=== PATIENT | female | born 1945 | race Caucasian/White ===

== ENCOUNTER 2022-08-20 14:12 | Outpatient (CLI) | payer MEDICARE, SELFPAY ==
--- OUTSIDE RECORDS SUMMARY | 2022-08-20 14:21 | XMS_ITS | Encounter Summary ---
:1945 Author Organization [place] Address [facility] [place] [address] Care Team Providers Name Role Phone Jordin Allred Amari JORDAN Unavailable Chan Duke MD Primary Care Provider Chan Duke MD Unavailable Yris Perez MD Unavailable [phone] Encounter Details Date Type Department Care Team Description 08/14/2022 Travel Social History Tobacco Use Types Packs/Day Years Used Date Passive Smoke Exposure - Never Smoker Smokeless Tobacco: Never Used Alcohol Use Standard Drinks/Week Comments No 0 (1 standard drink = 0.6 oz pure alcoho l) Sex Assigned at Date Recorded Female 01/27/2022 12:36 PM CDT COVID-19 Exposure Response Date Recorded In the last 10 days, have you been in contact with No / Unsu re 08/14/2022 1:36 PM CDT someone who was confirmed or suspected to have Coronavirus/COVID-19? 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, 01/08/2017 9 06/08/17, 08/26/17 documented as of this encounter Care Teams Harness Worker Relationship Specialty Start Date End Date Chan Duke MD PCP - General Internal Medicine 08/21/21 [address] [place] [address] Jordin Allred, Assigned Musculoskeletal 03/02/21 DPM Provider [address] [facility] [address] [place] [address] Chan Duke MD Assigned PCP 08/24/21 [address] [place] [address] Yris Perez Assigned Cancer Care 05/16/22 MD Ingrid Provider 420 [facility] [address] [place], [place] [id number] documented as of this encounter
--- OUTSIDE RECORDS SUMMARY | 2022-08-20 14:21 | XMS_ITS | Encounter Summary ---
:1945 Author Organization [place] Address [facility] [place] [address] Care Team Providers Name Role Phone Jordin Allred Amari DPJanelle Unavailable Chan Duke MD Primary Care Provider Chan Duke MD Unavailable Yris Perez MD Unavailable [phone] Reason for Visit Reason Comments Lab Only Encounter Details Date Type Department Care Team Description 06/15/2022 Oncology Visit [facility] Katalina Perez [place] [address] [place] [address] 420 [facility] [address] [address] [place] [address] [phone] Social History Tobacco Use Types Packs/Day Years [...] in contact with No / Unsu re 06/15/2022 10:54 AM CDT someone who was confirmed or suspected to have Coronavirus/COVID-19? documented as of this encounter Progress Notes Suzan Alston, HERBIE - 06/15/2022 10:45 AM CDT Urine collected from patient for lab only visit. 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, 01/08/2017 9 06/08/17, 08/26/17 documented as of this encounter Care Teams Bakery And Deli Sales Manager Relationship Specialty Start Date End Date Chan Duke MD PCP - General Internal Medicine 08/21/[address] [place] [address] [facility] [place] [address] Jordin Allred, Assigned Musculoskeletal 03/02/21 DPM Provider [address] [facility] [address] [place], [place] [address] Chan Duke MD Assigned PCP 08/24/[address] [place] [address] [place] [address] Yris Perez Assigned Cancer Care 05/16/22 MD Ingrid Provider [address] [phone] documented as of this encounter
--- OUTSIDE RECORDS SUMMARY | 2022-08-20 14:21 | XMS_ITS | Encounter Summary ---
:1945 Author Organization [place] Address [facility]0 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 documented as of this encounter Last Filed Vital Signs Vital Sign Reading Time Taken Comments Blood Pressure 129/74 08/14/2022 2:02 PM CDT Pulse 86 08/14/2022 2:02 PM CDT Temperature 36.8 ??C (98.3 ??F) 08/14/2022 2:02 PM CDT Respiratory Rate - - Oxygen Saturation 96% 08/14/2022 2:02 PM CDT Inhaled Oxygen Concentration - - Weight 66.2 kg (146 lb) 08/14/2022 2:02 PM CDT Height 167.6 cm (5' 6) 08/14/2022 2:02 PM CDT Body Mass Index 23.57 08/14/2022 2:02 PM CDT documented in this encounter Patient Instructions Patient InstructionsGuillermo Rojas APRN CNP - 08/14/2022 2:00 PM CDT Macrobid 5 days twice a day Lots of fluid/water I will contact with culture results documented in this encounter Progress Notes Guillermo Rojas APRN CNP - 08/14/2022 2:00 PM CDT Assessment & Plan Acute cystitis without hematuria (primary encounter diagnosis) Comment: patient positive for UTI. Patient concerned about use of Macrobid d/t sister having side effects from halfway use. Patient educated on risks and benefits of Macrobid, patient eventually agreed to prescription. Patient GFR >60, appropriate use verified. Encouraged patient to increase fluid intake. Patient educated on signs and symptoms of progressing UTI and when to present to urgent care/ER or contact the clinic if needed. Plan: nitroFURantoin macrocrystal-monohydrate (MACROBID) 100 MG capsule Urinary tract infection without hematuria, site unspecified Comment: see above. Will reach out to patient about culture results once received. Plan: UA Macro with Reflex to Micro and Culture - lab collect, Urine Microscopic Exam, Urine Culture See above for treatment 40 minutes spent on the date of the encounter doing chart review, history and exam, documentation and further activities per the note Follow up as needed. No follow-ups on file. Guillermo Rojas APRN CNP [facility] [place] is a 76 yo female presenting with concern for UTI. Patient has pertinent history of recurrenturinary tract infections, chronic obstructive pulmonary disease, hypertension, and breast cancer. Patient symptoms occurred 1-3 days ago. Discomfort upon urination, urinary frequency, lower abdominal discomfort, and myalgias last night. Patient abdominal pain dull in nature but not severe. She cannot explain her discomfort with urination and just describes it as a strange sensation. Patient currently on cranberry supplement and has tried increasing fluid. Patient feels that her symptoms are worsening. Has not taken any medications for relief of pain. Denies fevers, night sweats, flank pain, or hematuria. History of Present Illness Reason for visit: Suspect uti Symptom onset: 1-3 days ago She eats 4 or more servings of fruits and vegetables daily.She consumes 1 sweetened beverage(s) daily.She exercises with enough effort to increase her heart rate 9 or less minutes per day. She exercises with enough effort to increase her heart rate 4 days per week. She is missing 1 dose(s) of medications per week. Genitourinary - Female Onset/Duration: 1-3 days ago Description: Painful urination (Dysuria): No, discomfort Frequency: YES, 5 times last night Blood in urine (Hematuria): No Delay in urine (Hesitency): No Intensity: moderate, hard to void without the strange sensation Progression of Symptoms: worsening Accompanying Signs & Symptoms: Fever/chills: YES, last night Flank pain: No Nausea and vomiting: No Vaginal symptoms: none Abdominal/Pelvic Pain: No History: History of frequent UTI???s: YES History of kidney stones: No Sexually Active: No Possibility of : No Precipitating or alleviating factors: None Therapies tried and outcome: Cranberry juice prn (contraindicated in Coumadin patients) and OTC Aleve Patient said she saw urology in the past, and is experiencing the same symptoms she had Review of Systems Constitutional, HEENT, cardiovascular, pulmonary, gi and gu systems are negative, except as otherwise noted. Objective BP 129/74 (BP Location: Right arm, Patient Position: Sitting, Cuff Size: Adult Regular) Pulse 86 Temp 98.3 ??F (36.8 ??C) (Oral) Ht 1.676 m (5' 6) Wt 66.2 kg (146 lb) SpO2 96% BMI 23.57 kg/m?? Body mass index is 23.57 kg/m??. Physical Exam Vitals and nursing note reviewed. Constitutional: General: She is not in acute distress. Appearance: Normal appearance. She is well-developed. She is not ill-appearing, toxic-appearing or diaphoretic. Cardiovascular: Rate and Rhythm: Normal rate and regular rhythm. Pulses: Normal pulses. Heart sounds: Normal heart sounds, S1 normal and S2 normal. No murmur heard. No friction rub. No gallop. No S3 or S4 sounds. Pulmonary: Effort: Pulmonary effort is normal. No respiratory distress. Breath sounds: Normal breath sounds. No stridor. No wheezing, rhonchi or rales. Chest: Chest wall: No tenderness. Abdominal: General: Bowel sounds are normal. There is no distension. Palpations: Abdomen is soft. There is no mass. Tenderness: There is abdominal tenderness. There is no right CVA tenderness, left CVA tenderness, guarding or rebound. Skin: General: Skin is warm and dry. Neurological: General: No focal deficit present. Mental Status: She is alert and oriented to person, place, and time. Motor: No abnormal muscle tone. Deep Tendon Reflexes: Reflexes are normal and symmetric. Psychiatric: Mood and Affect: Mood normal. Behavior: Behavior normal. Thought Content: Thought content normal. Judgment: Judgment normal. 08/14/22 Urinalysis Results for orders placed or performed in visit on 08/14/22 UA Macro with Reflex to Micro and Culture - lab collect Status: Abnormal Specimen: Urine, Midstream Result Value Ref Range Color Urine Yellow Colorless, Straw, Light Yellow, Yellow Appearance Urine Clear Clear Glucose Urine Negative Negative mg/dL Bilirubin Urine Negative Negative Ketones Urine Negative Negative mg/dL Specific [place] Urine 1.015 1.003 - 1.035 Blood Urine Trace (A) Negative pH Urine 7.0 5.0 - 7.0 Protein Albumin Urine Negative Negative mg/dL Urobilinogen Urine 1.0 0.2, 1.0 E.U./dL Nitrite Urine Positive (A) Negative Leukocyte Esterase Urine Large (A) Negative Urine Microscopic Exam Status: Abnormal Result Value Ref Range Bacteria Urine Many (A) None Seen /HPF RBC Urine 0-2 0-2 /HPF /HPF WBC Urine 50-100 (A) 0-5 /HPF /HPF Squamous Epithelials Urine Few (A) None Seen /LPF Urinary Culture: results pending documented in this encounter Plan of Treatment Upcoming Encounters Date Type Specialty Care Team Description 10/26/2022 Lab Oncology Yris Perez MD [address] [id number] (Wo rk) 11/03/2022 Oncology Visit Oncology Yris Perez MD [address] [address] (Wo rk) documented as of this encounter Procedures Procedure Name Priority Date/Time Associated Diagnosis Comme nts UA MACROSCOPIC WITH Routine 08/14/2022 2:00 PM Urinary tract R esults for this REFLEX TO MICRO AND CDT infection with proced ure are in CULTURE hematuria, site the results unspecified section. URINE MICROSCOPIC Routine 08/14/2022 2:00 PM Urinary tract Res ults for this EXAM CDT infection with procedure are in hematuria, site the results unspecified section. URINE CULTURE Routine 08/14/2022 2:00 PM Urinary tract Results for this CDT infection with procedure are in hematuria, site the results unspecified section. documented in this encounter Results (ABNORMAL) Urine Culture (08/14/2022 2:00 PM CDT) [facility] Method Time Signature Culture >100,000 CFU/mL VERONIKA 08/15/2022 UU IDD Escherichia 11:01 PM CDT LABORATORY coli (A) Specimen Anatomical Collection Method Collection Time Receive d Time (Source) Location / / Volume Laterality Urine MID-STREAM URINE Non-blood 08/14/2022 2:00 PM 08/14 2:03 SPECIMEN / Unknown Collection / CDT PM CDT Unknown Organism Antibiotic Method Susceptibility Escherichia coli Ampicillin VERONIKA 4 ug/mL: Suscep tible Escherichia coli Ampicillin/ Sulbactam VERONIKA <=2 ug/mL : Susceptible Escherichia coli Piperacillin/Tazobactam VERONIKA <=4 ug/ mL: Susceptible Escherichia coli Cefazolin VERONIKA <=4 ug/mL: Susc eptible Comment: Cefazolin VERONIKA break points are for the treatment of uncomplicated urinary tract infections. For the tr eatment of systemic infections, please contact the laboratory for additional te sting. Escherichia coli Cefoxitin VERONIKA 8 ug/mL: Suscep tible Escherichia coli Ceftazidime VERONIKA <=1 ug/mL: Susc eptible Escherichia coli Ceftriaxone VERONIKA <=1 ug/mL: Susc eptible Escherichia coli Cefepime VERONIKA <=1 ug/mL: Susc eptible Escherichia coli Gentamicin VERONIKA <=1 ug/mL: Susc eptible Escherichia coli Tobramycin VERONIKA <=1 ug/mL: Susc eptible Escherichia coli Ciprofloxacin VERONIKA >=4 ug/mL: Resi stant Escherichia coli Levofloxacin VERONIKA >=8 ug/mL: Resi stant Escherichia coli Nitrofurantoin VERONIKA <=16 ug/mL: Jennifer ceptible Escherichia coli Trimethoprim/Sulfamethoxazole VERONIKA < =1/19 ug/mL: Susceptible Guillermo Rojas APRN, CNP LAB - MICRO GENERAL ORDERABL ES Performing Organization Address City/State/ZIP Code Phon e Number UU IDD LABORATORY [facility] [place] [address] [facility], Room [address]297 (ABNORMAL) Urine Microscopic Exam (08/14/2022 2:00 PM CDT) [facility] Method Time Signature Bacteria Urine Many (A) None Seen VERONIKA 08/14/2022 CR LABORATORY /HPF 2:07 PM CDT RBC Urine 0-2 0-2 /HPF VERONIKA 08/14/2022 CR LABORATORY /HPF 2:07 PM CDT WBC Urine 50-100 0-5 /HPF VERONIKA 08/14/2022 CR LABORATORY (A) /HPF 2:07 PM CDT Squamous Few (A) None Seen VERONIKA 08/14/2022 CR LABORATORY Epithelials /LPF 2:07 PM CDT Urine Specimen Anatomical Collection Method Collection Time Receive d Time (Source) Location / / Volume Laterality Urine MID-STREAM URINE Non-blood 08/14/2022 2:00 PM 08/14 2:00 SPECIMEN / Unknown Collection / CDT PM CDT Unknown Guillermo Rojas APRN, CNP LAB - URINE ORDERABLES Performing Organization Address City/[facility]/ZIP [facility] Phon e Number CR LABORATORY [facility] [place] [address] [facility] [address] [place] [address] Lab (no room number, 1st floor of clinic) CR LABORATORY [facility] [place], [place] [phone] [facility] [phone] Lab [address] [facility] Lab (no room number, 1st floor of [facility]) (ABNORMAL) UA Macro with Reflex to Micro and Culture - lab collect (08/14/2022 2:00 PM CDT) [facility] Method Time Signature Color Urine Yellow Colorless, 08/14/2022 CR LABORATORY Straw, 2:03 PM CDT Light Yellow, Yellow Appearance Urine Clear Clear 08/14/2022 CR LABORATOR Y 2:03 PM CDT Glucose Urine Negative Negative 08/14/2022 CR LABORATORY mg/dL 2:03 PM CDT Bilirubin Urine Negative Negative 08/14/2022 CR LABORATORY 2:03 PM CDT Ketones Urine Negative Negative 08/14/2022 CR LABORATORY mg/dL 2:03 PM CDT Specific [place] 1.015 1.003 - 08/14/2022 CR LABORATOR Y Urine 1.035 2:03 PM CDT Blood Urine Trace (A) Negative 08/14/2022 CR LABORATORY 2:03 PM CDT pH Urine 7.0 5.0 - 7.0 08/14/2022 CR LABORATORY 2:03 PM CDT Protein Albumin Negative Negative 08/14/2022 CR LABORATORY Urine mg/dL 2:03 PM CDT Urobilinogen 1.0 0.2, 1.0 08/14/2022 CR LABORATORY Urine E.U./dL 2:03 PM CDT Nitrite Urine Positive Negative 08/14/2022 CR LABORATORY (A) 2:03 PM CDT Leukocyte Large (A) Negative 08/14/2022 CR LABORATORY Esterase Urine 2:03 PM CDT Specimen Anatomical Collection Method Collection Time Receive d Time (Source) Location / / Volume Laterality Urine MID-STREAM URINE Non-blood 08/14/2022 2:00 PM 08/14 2:00 SPECIMEN / Unknown Collection / CDT PM CDT Unknown Guillermo Rojas APRN RECORDS OFFICER LAB - URINE ORDERABLES Performing Organization Address City/State/ZIP Code Phon e [place] [address] [facility] [address] [facility] Lab (no room number, 1st floor of clinic) CR LABORATORY [place], [place] [phone] [facility] [address], [facility] Lab [address] [facility] Lab (no room number, 1st floor of clinic) documented in this encounter Visit Diagnoses Diagnosis Acute cystitis without hematuria - Prima ry Acute cystitis Urinary tract infection with hematuria, site unspecified documented in this encounter Additional Health Concerns Infection Onset Date Last Indicated Resolved Time 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, 01/08/2017 9 06/08/17, 08/26/17 documented as of this encounter Care Teams Fuel Testing Technician Relationship Specialty Start Date End Date Chan Duke MD PCP - General Internal Medicine 08/21/21 [address] [place], [place] [phone] Jordin Allred, Assigned Musculoskeletal 03/02/21 DPM Provider [address] [place], [place] [address] Chan Duke MD Assigned PCP 08/24/21 [address] [place], [place] [address] Yris Perez Assigned Cancer Care 05/16/22 MD Ingrid Provider 420 [facility] [address] [place], [place] [address] documented as of this encounter
--- OUTSIDE RECORDS SUMMARY | 2022-08-20 14:21 | XMS_ITS | Encounter Summary ---
:1945 Author Organization [place] Address [facility] [place] [address] Care Team Providers Name Role Phone Jordin Allred Amari JORDAN Unavailable Chan Duke MD Primary Care Provider Chan Duke MD Unavailable Yris Perez MD Unavailable [phone] Encounter Details Date Type Department Care Team Description 07/09/2022 Travel Social History Tobacco Use Types Packs/Day [...] in contact with No / Unsu re 07/09/2022 9:17 AM CDT someone who was confirmed or suspected to have Coronavirus/COVID-19? documented as of this encounter Plan of Treatment Upcoming Encounters Date Type Specialty Care Team Description 10/26/2022 Lab Oncology Yris Perez MD [address] [address] (Madeleine proctor) 11/03/2022 Oncology Visit Oncology Yris Perez MD [address] [address] (Madeleine proctor) documented as of this encounter Visit Diagnoses Not on filedocumented in this encounter Additional Health Concerns Infection Onset Date Last Indicated Resolved Time 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, 01/08/2017 9 06/08/17, 08/26/17 documented as of this encounter Care Teams Cake Press Operator Relationship Specialty Start Date End Date Chan Duke MD PCP - General Internal Medicine 08/21/21 [address] [place] [phone] Jordin Allred, Assigned Musculoskeletal 03/02/21 DPM Provider [address] [facility] [address] [place] [address] Chan Duke MD Assigned PCP 08/24/21 [address] [place] [address] Yris Perez Assigned Cancer Care 05/16/22 MD Ingrid Provider 420 [facility] 286 [place], [place] [phone] documented as of this encounter
--- OUTSIDE RECORDS SUMMARY | 2022-08-20 14:21 | XMS_ITS | Encounter Summary ---
:1945 Author Organization [place] Address [address] 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 documented as of this encounter Plan of Treatment Upcoming Encounters Date Type Specialty Care Team Description 10/26/2022 Lab Oncology Yris Perez MD [address] [address] (Wo rk) 11/03/2022 Oncology Visit Oncology Yris Perez MD [address] [address] (Wo rk) Scheduled Orders Name Type Priority Associated Diagnoses Order S chedule Cancer Antigen 15-3 Lab Routine Malignant neoplasm of Expected: 08/04/2022 upper-inner quadrant of (Aliza roximate), right breast in female, Expi res: 06/03/2023 estrogen receptor positive (H) UA with Microscopic Lab Routine Dysuria Expected : 06/09/2022 reflex to Culture - lab (Aliza roximate), collect Expires: 2022 documented as of this encounter Visit Diagnoses Diagnosis 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, estrogen receptor positive (H) - Primary Dysuria documented in this encounter Additional Health Concerns Infection Onset Date Last Indicated Resolved Time 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, 01/08/2017 9 06/08/17, 08/26/17 documented as of this encounter Care Teams Rock Crusher Operator Relationship Specialty Start Date End Date Chan Duke MD PCP - General Internal Medicine 08/21/21 [address] [place], [place] [address] Jordin Allred, Assigned Musculoskeletal 03/02/21 DPM Provider [address] [facility] [address] [place], [place] [address] Chan Duke MD Assigned PCP 08/24/21 [address] [place] [address] Yris Perez Assigned Cancer Care 05/16/22 MD Ingrid Provider [address] [address] documented as of this encounter
--- OUTSIDE RECORDS SUMMARY | 2022-08-20 14:21 | XMS_ITS | Encounter Summary ---
:1945 Author Organization [place] Address [facility] [place] [address] Care Team Providers Name Role Phone Jordin Allred Amari JORDAN Unavailable Chan Duke MD Primary Care Provider Chan Duke MD Unavailable Yris Perez MD Unavailable [phone] Encounter Details Date Type Department Care Team Description 05/21/2022 Travel Social History Tobacco Use Types Packs/Day [...] 10/26/2022 Lab Oncology Yris Perez MD [address] [address] (Madeleine proctor) 11/03/2022 Oncology Visit Oncology Yris Perez MD 420 [facility] [address] [place] [address] (Madeleine proctor) documented as of this encounter Visit Diagnoses Not on filedocumented in this encounter Additional Health Concerns Infection Onset Date Last Indicated Resolved Time 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, 01/08/2017 9 06/08/17, 08/26/17 documented as of this encounter Care Teams Agricultural Specialist Relationship Specialty Start Date End Date Chan Duke MD PCP - General Internal Medicine 08/21/21 [address] [place] [address] Jordin Allred, Assigned Musculoskeletal 03/02/21 DPM Provider [address] [facility] [address] [place] [address] Chan Duke MD Assigned PCP 08/24/21 [address] [place] [address] Yris Perez Assigned Cancer Care 05/16/22 MD Ingrid Provider 420 [facility] 286 [place], [place] [phone] documented as of this encounter
--- OUTSIDE RECORDS SUMMARY | 2022-08-20 14:21 | XMS_ITS | Encounter Summary ---
:1945 Author Organization [place] Address [facility] [place] [address] Care Team Providers Name Role Phone Chalino, Jordin Fitzpatrick DPM Unavailable Chan Duke MD Primary Care Provider Chan Duke MD Unavailable Yris Perez MD Unavailable [phone] Reason for Visit Reason Comments Ingrown Toenail Encounter Details Date Type Department Care Team Description 07/09/2022 Office Visit [facility] Jordin Chapin Ing rowing right great toenail, medial edge (Primary Dx); [facility] Great toe pain, right Podiatry [address] [place] [address] [phone] (Wo rk) Social History Tobacco Use Types Packs/Day Years Used Date Passive Smoke Exposure - Never Smoker Smokeless Tobacco: Never Used Tobacco Cessation: Counseling Given: Yes Alcohol Use Standard Drinks/Week Comments No 0 [...] Sign Reading Time Taken Comments Blood Pressure 122/72 07/09/2022 9:30 AM CDT Pulse - - Temperature - - Respiratory Rate - - Oxygen Saturation - - Inhaled Oxygen Concentration - - Weight 67.1 kg (148 lb) 07/09/2022 9:30 AM CDT Height 167.6 cm (5' 6) 07/09/2022 9:30 AM CDT Body Mass Index 23.89 07/09/2022 9:30 AM CDT documented in this encounter Patient Instructions Patient InstructionsGordo Dickey - 07/09/2022 9:30 AM CDT Thank you for choosing [facility] Podiatry / Foot & Ankle Surgery! [facility] LOCATIONS: [facility] TRIAGE LINE: [phone] APPOINTMENTS: [phone] [place] [address] RADIOLOGY: [phone] SET UP SURGERY: [phone] BILLING QUESTIONS: [phone] [facility] FAX: [id number] [place] [address] POST-PERMANENT NAIL REMOVAL 1. Btyk-zxh-guefdmo pain medication (tylenol / ibuprofen), elevating your foot, and ice application to the top of the foot is all that you will need for pain control. 2. Some bleeding is normal. If bleeding seems excessive to you, place ice on top of your foot for 15-20 minutes and elevate your foot above heart level. 3. Keep bandage on until this evening or tomorrow morning. If the bandage falls off or if it feels too tight , start the soaking process below. 4. Soaking instructions: a. Soak your foot twice a day for 15 minutes in a mild solution of warm water and soap for a minimum of 2-4 weeks. If your toe is still draining at 4 weeks, continue with soaking. b. It???s okay to soak your foot for a few minutes to loosen the bandage applied at your appointment. c. After soaking, use a Q-tip to clean under and around the skin where the nail was removed. This helps get rid of the brownish material and helps the wound drain. d. Blot your toe dry and apply a band-aid. 5. It is normal to experience some discomfort and redness around the nail for 1- 2 weeks following the procedure. Drainage will likely appear brownish and thick at times. This is normal. It might drain for up to 2 months. 7. Initial discomfort might last 2-3 days. You may resume with regular activities at that time, as long as you keep the wound clean and follow the soaking instructions. It is recommended that you do not enter a public swimming pool or hot tub while your toe is draining. 8. After 2-3 days, if you are experiencing worsening pain and redness, or notice pus, please contactthe clinic. Ask to speak with a triage nurse and they will inform our team of your symptoms and we can advise if a follow up is needed. documented in this encounter Progress Notes Jordin Chapin DPM - 07/09/2022 9:30 AM CDT ASSESSMENT: Encounter Diagnoses Name Primary? Ingrowing right great toenail, medial edge Yes ??? Great toe pain, right MEDICAL DECISION MAKING: Clinical findings are consistent with nail regrowth after an attempted partial chemical matrixectomy. Consistent with a ingrown toenail, this nail edge is causing pain. Darshana is interested in having this removed. I discussed the revision chemical matrixectomy procedure. Explained that there is approximately a 5%chance of nail regrowth. She also reports some intermittent pain involving the distal medial nail unit of the left hallux. She has noted this nail curls more. We discussed a possible partial nail removal procedure today. Ultimately she decided to wait and watch. There are no clinical signs of infection involving either toe today. Chemical Matrixectomy/ Permanent nail removal: The chemical matrixectomy procedure was reviewed, including risks, benefits, and post-procedure cares. The risk of discomfort and infection was discussed. The chance of nail regrowth was discussed. Verbal and written consent was obtained. The site was marked and the Time Out called. The base of the right hallux was injected with 3 cc of 2% Lidocaine plain. The toe was then prepped with betadine solution. A tourniquet was applied around the base of the toe to for hemostasis. Next the toe was checked for adequate anesthesia. The medial nail section was freed from the nail bed and marginal soft tissue attachments with a small spatula. The nail was firmly grasped with a hemostat andremoved in total. The area was explored with a blunt instrument. No additional nail found. The region of the germinal matrix was curettaged. Using small applicator sticks, three applications for 30 seconds, of Phenol tothe nail matrix were performed. The area was diluted with a copious amount of isopropyl alcohol. It was blotted dry. Next Silvadene ointment was applied to the nail bed, followed by a compressive dressing. The tourniquet was removed. The distal toe became immediately pink. The involved foot was kept elevated for several minutes. Patient tolerated the procedure well. Post-procedure instruction handout provided. Jordin Chapin DPM, VERNA, MS [facility] of Pod[facility] & [facility]le Surgery Disclaimer: This note consists of symbols derived from keyboarding, dictation and/or voice recognition software. As a result, there may be errors in the script that have gone undetected. Please consider this when interpreting information found in this chart. Jordin Chapin DPM, VERNA, MS [facility] of Podiatry/Foot & Ankle Surgery HPI: Darshana presents today reporting some nail regrowth involving her right hallux. In February 2021 she hada partial chemical matrixectomy of the medial edge. Some nail has regrown. This causes some discomfort including throbbing, tingling and shooting pain. She also reports that there have been times that she was concerned about infection, due to redness. * Past Medical History: Diagnosis Date ??? Acute idiopathic gout of left foot ??? Benign essential hypertension ??? Cancer (H) breast ??? Chronic infection multiple UTIs ??? COPD (chronic obstructive pulmonary disease) (H) ??? Migraines * * Past Surgical History: Procedure Laterality Date ??? ARTHROPLASTY HIP ANTERIOR Right 03/10/2016 Procedure: ARTHROPLASTY HIP ANTERIOR; Surgeon: Wayne Estevez MD; Location: [facility] OR ??? BIOPSY NODE SENTINEL Right 02/08/2017 Procedure: BIOPSY NODE SENTINEL; Surgeon: Jordin Atkins MD; Location: [facility] ??? BREAST SURGERY February 2017 Lumpectomy right breast ??? COLONOSCOPY N/A 06/03/2017 Procedure: COLONOSCOPY; COLONOSCOPY ; Surgeon: Alejo Aburto MD; Location: [facility] GI ??? CYSTOSCOPY N/A 12/09/2017 Procedure: CYSTOSCOPY; Video Cystoscopy Rigid and Flexible, right retrogrades, cystogram, vaginoscopy; Surgeon: Iggy Dodd MD; Location: [facility] OR ??? COFFEE GROWER SURGERY hysterectomy ??? HYSTERECTOMY ??? LUMPECTOMY BREAST WITH SEED LOCALIZATION Right 02/08/2017 Procedure: LUMPECTOMY BREAST WITH SEED LOCALIZATION; Surgeon: Jordin Atkins MD; Location: [facility] ??? ORTHOPEDIC SURGERY hip replacement * * Current Outpatient Medications Medication Sig Dispense Refill ??? albuterol (PROAIR HFA) 108 (90 Base) MCG/ACT inhaler INHALE 2 PUFFS 4 TIMES A DAY NEEDED 8.5 Inhaler 11 ??? allopurinol (ZYLOPRIM) 300 MG tablet TAKE 1 TABLET BY MOUTH EVERY DAY 90 tablet 2 ??? anastrozole (ARIMIDEX) 1 MG tablet Take 1 tablet (1 mg) by mouth daily 90 tablet 3 ??? Ascorbic Acid (VITAMIN C PO) ??? calcium carbonate (OS-ROSALINO) 500 MG tablet Take 1 tablet by mouth daily ??? Cholecalciferol (VITAMIN D3 PO) Take 2,000 Units by mouth daily ??? CRANBERRY PO Take by mouth daily ??? loratadine (CLARITIN) 10 MG tablet Take 10 mg by mouth ??? Magnesium 500 MG CAPS Take by mouth daily ??? Multiple Vitamins-Minerals (ZINC PO) ??? vitamin B complex with vitamin C (VITAMIN B COMPLEX) tablet Take 1 tablet by mouth daily EXAM: Vitals: BP 122/72 Ht 1.676 m (5' 6) Wt 67.1 kg (148 lb) No BMI 23.89 kg/m?? BMI: Body mass index is 23.89 kg/m??. Constitutional: Darshana Brooks is in no apparent distress, appears well- nourished. Cooperative with history and physical exam. Vascular: Pedal pulses are palpable for both the DP and PT arteries. CFT < 3 sec. No edema. Neuro: Light touch sensation is intact to the L4, L5, S1 distributions No evidence of weakness, spasticity, or contracture in the lower extremities. Derm: Tenderness on palpation to the medial skin fold/nail unit of the right hallux. There is a segment of nail that it is separate from the main nail plate. This is growing along the medial edge. No erythema. No drainage. documented in this encounter Plan of Treatment Upcoming Encounters Date Type Specialty Care Team Description 10/26/2022 Lab Oncology Yris Perez MD [address] [place] [address] [phone] (Wo rk) 11/03/2022 Oncology Visit Oncology Yris Perez MD [address] [place] [address] [phone] (Wo rk) documented as of this encounter Procedures Procedure Name Priority Date/Time Associated Diagnosis Comme nts NV REMOVAL NAIL/NAIL Routine 07/09/2022 9:52 AM CDT Ingrowing right great BED, PARTIAL OR toenail, medial edge COMPLETE Great toe pain, right documented in this encounter Visit Diagnoses Diagnosis Ingrowing right great toenail, medial ed ge - Primary Ingrowing nail Great toe pain, right documented in this encounter Additional Health Concerns Infection Onset Date Last Indicated Resolved Time 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, 01/08/2017 9 06/08/17, 08/26/17 documented as of this encounter Care Teams Fitness Studies Teacher Relationship Specialty Start Date End Date Chan Duke MD PCP - General Internal Medicine 08/21/21 [address] [facility] [address] [place], [place] [id number] Jordin Chapin, Assigned Musculoskeletal 03/02/21 DPM Provider [address] [facility] [address] [place] [address] Chan Duke MD Assigned PCP 08/24/21 [address] [place] [address] [place] [id number] Yris Perez Assigned Cancer Care 05/16/22 MD Ingrid Provider [address] [facility] [address] [place], [place] [address] documented as of this encounter
--- OUTSIDE RECORDS SUMMARY | 2022-08-20 14:21 | XMS_ITS | Encounter Summary ---
:1945 Author Organization [place] Address [facility] [place] [address] Care Team Providers Name Role Phone Jordin Allred Amari JORDAN Unavailable Chan Duke MD Primary Care Provider Chan Duke MD Unavailable Yris Perez MD Unavailable [phone] Encounter Details Date Type Department Care Team Description 06/15/2022 Travel Social History Tobacco Use Types Packs/Day [...] 10/26/2022 Lab Oncology Yris Perez MD [address] [address] (Madeleine proctor) 11/03/2022 Oncology Visit Oncology Yris Perez MD [address] [address] (Madeleine proctor) documented as of this encounter Visit Diagnoses Not on filedocumented in this encounter Additional Health Concerns Infection Onset Date Last Indicated Resolved Time 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
--- OUTSIDE RECORDS SUMMARY | 2022-08-20 14:21 | XMS_ITS | Clinical Summary ---
:1945 Author Organization [place] Address [facility] [place] [address] Care Team Providers Name Role Phone Jordin Allred Amari JORDAN Unavailable Chan Duke MD Primary Care Provider Chan Duke MD Unavailable Yris Perez MD Unavailable [phone] Allergies Active Allergy Reactions Severity Noted Date Comments [place] Trees Unknown Medium 01/29/2022 Chlorhexidine Rash Low 03/10/2016 Latex Rash Low 05/27/2012 Other reaction( s): Other, see comm ents PN: sneezing, r unny nose, [place] Unknown Medium 01/29/2022 No Clinical Screening - See 02/11/2009 PN: LW Other1: Comments -latex:nasal co ngestion, eyes watering. LW Other2: -[place], horses, cats, d ust, molds, trees Sulfamethoxazole 06/10/2016 Heartburn Medications Medication Sig Dispensed Refills Start End Date Status Date loratadine Take 10 mg 0 Active (CLARITIN) 10 MG by mouth tablet Cholecalciferol Take 2,000 0 Act dee (VITAMIN D3 PO) Units by mouth daily albuterol (PROAIR INHALE 2 8.5 Inhaler 11 Active HFA) 108 (90 Base) PUFFS 4 0 MCG/ACT TIMES A DAY inhalerIndications: NEEDED Chronic obstructive pulmonary disease, unspecified COPD type (H) calcium carbonate Take 1 0 Ac tive (OS-ROSALINO) 500 MG tablet by tablet mouth daily CRANBERRY PO Take by 0 Active mouth daily Ascorbic Acid 0 Active (VITAMIN C PO) allopurinol TAKE 1 90 tablet 2 Active (ZYLOPRIM) 300 MG TABLET BY 1 tabletIndications: MOUTH EVERY Acute idiopathic DAY gout of left foot vitamin B complex Take 1 0 Ac tive with vitamin C tablet by (VITAMIN B COMPLEX) mouth daily tablet Multiple 0 08/14/20 Discontinu ed Vitamins-Minerals 22 (S topped by (ZINC PO) Patient) anastrozole Take 1 90 tablet 3 08/14/20 Disconti nued (ARIMIDEX) 1 MG tablet (1 1 22 (Sto pped by tabletIndications: mg) by mouth Patient) 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, estrogen receptor positive (H) Magnesium 500 MG Take by 0 08/14/20 Dis continued CAPS mouth daily 22 (Stopped by Patient) nitroFURantoin Take 1 10 capsule 0 08/19/20 Expi red macrocrystal-monohyd capsule (100 2 22 rate (MACROBID) 100 mg) by mouth MG 2 times capsuleIndications: daily for 5 Acute cystitis days without hematuria Active Problems Problem Noted Date ERRONEOUS ENCOUNTER--DISREGARD 03/31/2019 Hyperlipidemia LDL goal <130 01/29/2019 Fatigue, unspecified type 01/29/2019 Acute idiopathic gout of left foot 01/29/2019 Vitamin D deficiency 01/29/2019 Trigger finger, acquired 01/29/2019 Atrophic vaginitis 01/27/2018 Malignant neoplasm of female breast, unspecified estro gen receptor status, 12/06/2017 unspecified laterality, unspecified site of breast Overview: SCP complete History of frequent urinary tract infections 8 Strain of neck muscle, initial encounter 01/25/2017 Benign essential hypertension 01/05/2017 Chronic obstructive pulmonary disease, unspecified 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 Document previously scanned on 03/10/16. Validation form previously completed and sent to be scanned. Code S tatus reflects choices in most recent ACP document. Confirmed/documented designated decision maker(s). Added by Sruthi Andersen, RN, Advance Care Planning Liaison. 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, estrogen receptor positive (H) (Primary Dx); MD Ingrid FHx: breast cancer; Cintia Canales, GILLIAN Family hi story of leukemia; Family history of gene mutation 07/09/2022 Office Visit Podiatry Jordin Allred Ingrowin g right great toenail, medial edge (Primary Dx); DPM Great toe pain, right 07/09/2022 Travel 06/15/2022 Oncology Visit Oncology Yris Perez Dysuria MD Ingrid 06/15/2022 Travel 06/03/2022 Orders Only Oncology Yris Perez Malignant ne oplasm of upper- inner quadrant of right breast in female, estrogen receptor positive (H) (Primary Dx); MD Ingrid Dysuria 05/21/2022 Lab Oncology Yris Perez Malignant ne oplasm of MD Ingrid upper-inner verónica drant of right breast in female, estrogen recept or positive (H) 05/21/2022 Travel from Last 3 Months Immunizations Name Administration Dates Next Due Flu, Unspecified 11/23/2002 [id number] Novel Flu 11/19/2009 Hep B, Peds or Adolescent 08/16/2000, 07/14/2000 HepA-Adult 07/14/2000, 11/15/1999 HepA-Peds, Unspecified 07/14/2000 HepB, Unspecified 05/30/2001 HepB-Adult 05/30/2001, 08/16/2000, 07/14/2000 Influenza (High Dose) 3 valent vaccine 12/01/2016 Influenza (IIV3) PF 11/02/2006, 10/28/2005, 11/13/2004, 11/23/2002 Meningococcal (Menomune??) 02/11/2009, 08/16/2000 Pneumo Conj 13-V (2010&after) 12/16/2015 Pneumococcal 23 valent 09/22/2012, 11/15/2011 Poliovirus, inactivated (IPV) 07/14/2000 TD (ADULT, 7+) 01/30/2019, 07/14/2000 TDAP Vaccine (Adacel) 02/11/2009 Td (Adult), Adsorbed 07/14/2000 Typhoid IM 04/15/2015 Typhoid Oral 02/11/2009 Typhoid, Unspecified Formulation 02/11/2009 Yellow Fever 05/27/2012, 08/16/2000 Family History Medical History Relation Comments Other Cancer Brother 3 leukemia Other Cancer Brother 4 mesothelioma Asthma Father Asthma, Emphazema, Heart Failure Diabetes Father border line diabetes Diabetes Mother type? unknown Hypertension Mother Breast Cancer Niece Double mastectomy, r econstruction Breast Cancer Other 1 Aunt Osteoporosis Other 2 paternal aunt Breast Cancer Sister 1 Anesthesia Reaction Sister 4 Problems coming out from anesthersia Breast Cancer Sister 4 twice Relation Status Comments Brother 1 Alive Brother 2 Alive Brother 3 Brother 4 Father Maternal Grandfather Maternal Grandmother Mother Niece Other 1 Other 2 Paternal Grandfather Paternal Grandmother Sister 1 Alive Sister 2 Alive Sister 3 Alive Sister 4 Social History Tobacco Use Types Packs/Day Years [...] was confirmed or suspected to have Coronavirus/COVID-19? Last Filed Vital Signs Vital Sign Reading Time Taken Comments Blood Pressure 129/74 08/14/2022 2:02 PM CDT Pulse 86 08/14/2022 2:02 PM CDT Temperature 36.8 ??C (98.3 ??F) 08/14/2022 2:02 PM CDT Respiratory Rate 16 05/07/2022 8:35 AM CDT Oxygen Saturation 96% 08/14/2022 2:02 PM CDT Inhaled Oxygen Concentration - - Weight 66.2 kg (146 lb) 08/14/2022 2:02 PM CDT Height 167.6 cm (5' 6) 08/14/2022 2:02 PM CDT Body Mass Index 23.57 08/14/2022 2:02 PM CDT Plan of Treatment Upcoming Encounters Date Type Specialty Care Team Description 10/26/2022 Lab Oncology Yris Perez MD [address] [address] (Wo rk) 11/03/2022 Oncology Visit Oncology Yris Perez MD [address] [facility] [address] [place] [address] (Wo rk) Health Maintenance Due Date Last Done Comments ANNUAL REVIEW OF HM ORDERS 1945 COPD ACTION PLAN [address] COLONOGRAPHY 1945 FIT-DNA (Cologuard) 1945 FIT 1945 FLEX SIG 1945 HEPATITIS C SCREENING 1965 COVID-19 Vaccine (2 - 03/21/2021 01/24/2021 Booster for Juliette series) INFLUENZA VACCINE (#1) 2022 12/05/2020 (Declined), 12/01/2016, 11/19/2009, Additional history exists FALL RISK ASSESSMENT 01/29/2023 01/29/2022, 08/05/2021, 01/13/2021, Additional history exists MEDICARE ANNUAL WELLNESS 01/29/2023 01/29/2022, 01/29/2022, VISIT 05/29/2020, Additional history exists MAMMO SCREENING 04/17/2024 04/17/2022, 03/24/2021, 03/22/2020, Additional history exists LIPID 08/05/2026 08/05/2021, 05/29/2020, 01/30/2019, Additional history exists ADVANCE CARE PLANNING 01/30/2027 01/30/2022, 06/22/2020, 06/02/2016, Additional history exists DTAP/TDAP/TD IMMUNIZATION 01/30/2029 01/30/2019, 02/11/2009 , (4 - Td or Tdap) 07/14/2000, Additional history exists COLONOSCOPY 08/15/2031 08/15/2021, 08/15/2021, 08/15/2021, Additional history exists COLORECTAL CANCER SCREENING 08/15/2031 DEXA 12/22/2036 12/22/2021, 12/22/2021, 04/19/2020, Additional history exists IPV IMMUNIZATION Aged Out 07/14/2000 No longer eligi ble based on patient 's age to complete this topic HEPATITIS B IMMUNIZATION Aged Out 05/30/2001, 05/30/2001, No longer eligible 08/16/2000, Additional based on patient's age history exists to complete this topic MENINGITIS IMMUNIZATION Aged Out 02/11/2009, 08/16/2000 N o longer eligible based on patient 's age to complete this topic Pneumococcal Vaccine: 65+ Completed 12/16/2015, 09/22/2012 , Years 11/15/2011 SPIROMETRY Completed 01/30/2019, 01/27/2018, 01/05/2017, Additional history exists ZOSTER IMMUNIZATION Completed 05/23/2022, 01/12/2022 PHQ-2 (once per calendar Completed 08/14/2022, 01/29/2022, year) 08/05/2021, Additional history exists Medical Devices Implanted Type Area Hr Intern Device Shelf Model / Identifier Expiration Date Ser ial / Lot Biolox Delta Ceramic Femoral Head +5.0 36mm Cristina 10/28 Taper Right: Hip Depuy 09/14/2020 [id number] / Implanted: Qty: 1 on 03/10/2016 by Wayne aGutam MD at [facility] / [id number] Procedures Procedure Name Priority Date/Time Associated Diagnosis Comme nts URINE CULTURE Routine 08/14/2022 2:00 PM Urinary tract Results for this CDT infection with procedure are in hematuria, site the results unspecified section. URINE MICROSCOPIC Routine 08/14/2022 2:00 PM Urinary tract Res ults for this EXAM CDT infection with procedure are in hematuria, site the results unspecified section. UA MACROSCOPIC WITH Routine 08/14/2022 2:00 PM Urinary tract R esults for this REFLEX TO MICRO AND CDT infection with proced ure are in CULTURE hematuria, site the results unspecified section. KS REMOVAL NAIL/NAIL Routine 07/09/2022 9:52 AM Ingrowing righ t BED, PARTIAL OR CDT great toenail, COMPLETE medial edge Great toe pain, right CANCER ANTIGEN 15-3 Routine 05/21/2022 3:13 PM Malignant neopl asm Results for this CDT of upper-inner procedure are in quadrant of right the result s breast in female, section. estrogen receptor positive (H) from Last 3 Months Results (ABNORMAL) UA Macro with Reflex to Micro and Culture - lab collect (08/14/2022 2:00 PM CDT) [facility] gist Method Time Signature Color Urine Yellow Colorless, 08/14/2022 [facility] Straw, 2:03 PM CDT Light Yellow, Yellow Appearance Urine Clear Clear 08/14/2022 CR [facility] Y 2:03 PM CDT Glucose Urine Negative Negative 08/14/2022 [facility] mg/dL 2:03 PM CDT Bilirubin Urine Negative Negative 08/14/2022 [facility] 2:03 PM CDT Ketones Urine Negative Negative 08/14/2022 [facility] mg/dL 2:03 PM CDT Specific [place] 1.015 1.003 - 08/14/2022 [facility] Y [...] CDT PM CDT Unknown Guillermo Rojas APRN B[facility] LAB - URINE ORDERABLES Performing Organization Address City/State/ZIP Code Ph[place] [address] [phone] [place] [facility] [address] [facility] (no room number, [facility]st [facility]) [facility] [place], [place] [phone] [facility] [phone] [address] [facility] (no room number, [facility]st floor [facility]) (ABNORMAL) Urine Microscopic Exam (08/14/2022 2:00 PM CDT) [facility] Method Time Signature Bacteria Urine Many [...] CDT PM CDT Unknown Guillermo Rojas APRN B[facility]LE SORTER LAB - URINE ORDERABLES Performing Organization Address City/State/ZIP Code [place] [address] [place] [facility] [address] [facility] (no room number, [facility]st [facility]) [facility] [place], [place] [phone] [facility] [address] [address] [facility] (no room number, [facility]st [facility]) (ABNORMAL) Urine Culture (08/14/2022 2:00 PM CDT) [facility] Short Fuze Method Time Signature Culture >100,000 CFU/mL VERONIKA [...] VERONIKA < =1/19 ug/mL: Susceptible Guillermo Rojas APRN [facility]LE [facility]OR[facility] LAB - MICRO GENERAL ORDERABL ES Performing Organization Address City/State/ZIP Code Phon e Number [facility] [place] [phone] [facility], [address] (ABNORMAL) Cancer Antigen 15-3 (05/21/2022 3:13 PM CDT) P athologist Signature Cancer Antigen 30 (H) <=25 U/mL 05/21/2022 [facility] 15-3 8:27 PM CDT Comment: This result is obtained using t mike Magdalena Elecsys CA 15-3 II method on the sherley [id number] immunoassay analyzer. Results obtained with different assay methods or kits cannot be used interchangeably. Specimen Anatomical Collection Method / Collection Time Recei caitlin Time (Source) Location / Volume Laterality Blood STRUCTURE OF LEFT Venipuncture / 05/21/2022 3:13 05/21 3:25 UPPER LIMB / Unknown PM CDT PM CDT Unknown Yris Perez MD LAB - BLOOD ORDERABLES Performing Organization Address City/State/ZIP Code Phon e Number [facility] [place] [address] Lab [address] [facility] [address] Building, Room 3-580 from Last 3 Months Additional Health Concerns Infection Onset Date Last Indicated 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, 06/08/17, 08/26/1708/29/2019 Insurance Payer Benefit Plan / Subscriber ID Effective Dates Phone Addre ss Type Group BCBS BCBS MEDICARE [id number] 2018-Naeem [phone] [address] [address] Medicare ADVANTAGE t 0 [place] [address] Advance Directives For more information, please contact: [phone] Documents on File Type Date Recorded 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 Explanati on Advance Directives and 03/10/2016 7:35 PM Health Care Directive Living Will 02/26/16 Latest Code Status on File Code Status Date Activated Date Inactivated Comments Full Code 03/11/2016 1:43 PM 08/22/2020 3:28 PM Full Code 03/10/2016 3:43 PM 03/11/2016 1:43 PM Care Teams Artificial Cherry Maker Relationship Specialty Start Date End Date Chan Duke MD PCP - General Internal Medicine 08/21/[address] [place], [place] [phone] Jordin Allred, Assigned Musculoskeletal 03/02/21 DPM Provider [address] [facility] [address] [place], [place] [phone] Chan Duke MD Assigned PCP 08/24/[address] [place], [place] [phone] Yris Perez [facility] 05/16/22 MD Ingrid Provider [address] [facility] [address] [place] [address]
--- OUTSIDE RECORDS SUMMARY | 2022-08-20 14:21 | XMS_ITS | Encounter Summary ---
:1945 Author Organization [facility] Address [address] [place] [address]. [place] [address] Care Team Providers Name Role Phone Jordin Allred Amari DPJanelle Unavailable Chan Duke MD Primary Care Provider Chan Duke MD Unavailable Yris Perez MD Unavailable [phone] Reason for Visit Consultation (Routine: Next available opening) - Pending Review Specialty Diagnoses / Procedures Referred By Contact Refer red To Contact Diagnoses Malignant neoplasm of upper-inner quadrant of right breast in female, estrogen receptor positive (H) FHx: breast cancer Yris Perez MD [address] [phone] Referral ID Status Reason Start Date Expiration Date Visits V isits Requested Authorized [id number] Pending 05/07/2022 05/07/2023 1 1 Review Encounter Details Date Type Department Care Team Description 07/27/2022 Virtual Visit [facility] Katalina Perez MD [address] [id number] 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, estrogen receptor positive (H) (Primary Dx); [facility], [address] [place], [place] [id number] FHx: breast cancer; Clinic Family history of leukemia; [address] [facility] Family [place] [address] Social History Tobacco Use Types Packs/Day Years [...] have Coronavirus/COVID-19? documented as of this encounter Patient Instructions Patient InstructionsCintia Canales, - 07/27/2022 12:00 PM CDT Images from the original note were not included. Assessing Cancer Risk Only about 5-10% of cancers are thought to be due to an inherited cancer susceptibility gene. These families often have: Several people with the same or related types of cancer Cancers diagnosed at a young age (before age 50) Individuals with more than one primary cancer Multiple generations of the family affected with cancer Some people may be candidates for genetic testing of more than one gene. For these families, genetictesting using a cancer panel may be offered. These panels will test different genes known to increase the risk for breast, ovarian, uterine, and/or other cancers. All of the genes discussed below have published clinical management guidelines for individuals who are found to carry a mutation. The purpose of this handout is to serve as a brief summary of the genes analyzed by the panels used to inquireabout hereditary breast and gynecologic cancer: KATELYN, BRCA1, BRCA2, BRIP1, CDH1, CHEK2, MLH1, MSH2, MSH6, PMS2, EPCAM, PTEN, PALB2, RAD51C, RAD51D, and TP53. Hereditary Breast and Ovarian Cancer Syndrome (BRCA1 and BRCA2) A single mutation in one of the copies of BRCA1 or BRCA2 increases the risk for breast and ovarian cancer, among others. The risk for pancreatic cancer and melanoma may also be slightly increased in some families. The chart below shows the chance that someone with a BRCA mutation would develop cancer in his or her lifetime1,2,3,4. A person???s ethnic background is also important to consider, as individuals of Ashkenazi Baptism ancestry have a higher chance of having a BRCA gene mutation. There are three BRCA mutations that occur more frequently in this population. Tyson Syndrome (MLH1, MSH2, MSH6, PMS2, and EPCAM) Currently five genes are known to cause Tyson Syndrome: MLH1, MSH2, MSH6, PMS2, and EPCAM. A single mutation in one of the Tyson Syndrome genes increases the risk for colon, endometrial, ovarian, and stomach cancers. Other cancers that occur less commonly in Tyson Syndrome include urinary tract, skin,and brain cancers. The chart below shows the chance that a person with Tyson syndrome would develop cancer in his or her lifetime5. *Cancer risk varies depending on Tyson syndrome gene found Mikey Syndrome (PTEN) [place] syndrome is a hereditary condition that increases the risk for breast, thyroid, endometrial, colon, and kidney cancer. Mikey syndrome is caused by a mutation in the PTEN gene. A single mutationin one of the copies of PTEN causes Mikey syndrome and increases cancer risk. The chart below showsthe chance that someone with a PTEN mutation would develop cancer in their lifetime6,7. Other benignfeatures seen in some individuals with [place] syndrome include benign skin lesions (facial papules, keratoses, lipomas), learning disability, autism, thyroid nodules, colon polyps, and larger head size. *One recent study found breast cancer risk to be increased to 85% Li-Fraumeni Syndrome (TP53) Li-Fraumeni Syndrome (LFS) is a cancer predisposition syndrome caused by a mutation in the TP53 gene. A single mutation in one of the copies of TP53 increases the risk for multiple cancers. Individualswith LFS are at an increased risk for developing cancer at a young age. The lifetime risk for development of a LFS-associated cancer is 50% by age 30 and 90% by age 60. Core Cancers: Sarcomas, Breast, Brain, Lung, Leukemias/Lymphomas, Adrenocortical carcinomas Other Cancers: Gastrointestinal, Thyroid, Skin, Genitourinary Hereditary Diffuse Gastric Cancer (CDH1) Currently, one gene is known to cause hereditary diffuse gastric cancer (HDGC): CDH1. Individuals with HDGC are at increased risk for diffuse gastric cancer and lobular breast cancer. Of people diagnosed with HDGC, 30-50% have a mutation in the CDH1 gene. This suggests there are likely other genes that may cause HDGC that have not been identified yet. Lifetime Cancer Risks General Population HDGC Diffuse Gastric <1% ~80% Breast 12% 39-52% Additional Genes KATELYN KATELYN is a moderate-risk breast cancer gene. Women who have a mutation in KATELYN can have between a 2-4 fold increased risk for breast cancer compared to the general population8. KATELYN mutations have also been associated with increased risk for pancreatic cancer, however an estimate of this cancer risk is not well understood9. Individuals who inherit two KATELYN mutations have a condition called ataxia-telangiectasia (AT). This rare autosomal recessive condition affects the nervous system and immune system, and is associated with progressive cerebellar ataxia beginning in childhood. Individuals with ataxia-telangiectasia often have a weakened immune system and have an increased risk for childhood cancers. PALB2 Mutations in PALB2 have been shown to increase the risk of breast cancer up to 33-58% in some families; where individuals fall within this risk range is dependent upon family . PALB2 mutationshave also been associated with increased risk for pancreatic cancer, although this risk has not beenquantified yet. Individuals who inherit two PALB2 mutations--one from their mother and one from their father--have a condition called Fanconi Anemia. This rare autosomal recessive condition is associated with short stature, developmental delay, bone marrow failure, and increased risk for childhood cancers. CHEK2 CHEK2 is a moderate-risk breast cancer gene. Women who have a mutation in CHEK2 have around a 2-foldincreased risk for breast cancer compared to the general population, and this risk may be higher depending upon family history.11,12,13 Mutations in CHEK2 have also been shown to increase the risk of anumber of other cancers, including colon and prostate, however these cancer risks are currently not well understood. BRIP1, RAD51C and RAD51D Mutations in BRIP1, RAD51C, and RAD51D have been shown to increase the risk of ovarian cancer and possibly female breast cancer as well14,15 . Lifetime Cancer Risk General Population BRIP1 RAD51C RAD51D Ovarian 1-2% ~5-8% ~5-9% ~7-15% Inheritance All of the cancer syndromes reviewed above are inherited in an autosomal dominant pattern. This means that if a parent has a mutation, each of his or her children will have a 50% chance of inheriting that same mutation. Therefore, each child--male or female--would have a 50% chance of being at increased risk for developing cancer. Image obtained from Genetics Home Reference, 2013 Mutations in some genes can occur de mulugeta, which means that a person???s mutation occurred for the first time in them and was not inherited from a parent. Now that they have the mutation, however, it can be passed on to future generations. Genetic Testing Genetic testing involves a blood test and will look at the genetic information in the KATELYN, BRCA1, BRCA2, BRIP1, CDH1, CHEK2, MLH1, MSH2, MSH6, PMS2, EPCAM, PTEN, PALB2, RAD51C, RAD51D, and TP53 genes for any harmful mutations that are associated with increased cancer risk. If possible, it is recommended that the person(s) who has had cancer be tested before other family members. That person will giveus the most useful information about whether or not a specific gene is associated with the cancer inthe family. Results There are three possible results of genetic testing: Positive--a harmful mutation was identified in one or more of the genes Negative--no mutation was identified in any of the genes on this panel Variant of unknown significance--a variation in one of the genes was identified, but it is unclear how this impacts cancer risk in the family Advantages and Disadvantages There are advantages and disadvantages to genetic testing. Advantages May clarify your cancer risk Can help you make medical decisions May explain the cancers in your family May give useful information to your family members (if you share your results) Disadvantages Possible negative emotional impact of learning about inherited cancer risk Uncertainty in interpreting a negative test result in some situations Possible genetic discrimination concerns (see below) Genetic Information Nondiscrimination Act (TACO) TACO is a federal law that protects individuals from health insurance or employment discrimination based on a genetic test result alone. Although rare, there are currently no legal discrimination protections in terms of life insurance, material checker care, or disability insurances. Visit the National Human Genome Research [place] website to learn more. Reducing Cancer Risk All of the genes described above have nationally recognized cancer screening guidelines that would be recommended for individuals who test positive. In addition to increased cancer screening, surgeriesmay be offered or recommended to reduce cancer risk. Recommendations are based upon an individual???s genetic test result as well as their personal and family history of cancer. Questions to Think About Regarding Genetic Testing: What effect will the test result have on me and my relationship with my family members if I have an inherited gene mutation? If I don???t have a gene mutation? Should I share my test results, and how will my family react to this news, which may also affect them? Are my children ready to learn new information that may one day affect their own health? Hereditary Cancer Resources FORCE: Facing Our Risk of Cancer Empowered facingourrisk.org [place] bebrightpink.org Li-Fraumeni Syndrome Association lfsassociation.org PTEN World PTENworld.com No stomach for cancer, Inc. nostomachforcancer.org Stomach cancer relief network Scrnet.org Collaborative Group of the Americas on Inherited Colorectal Cancer (CGA) cgaicc.com Cancer Care cancercare.org [place] Cancer Society (ACS) cancer.org National Cancer [place] (NCI) cancer.gov Please call us if you have any questions or concerns. Cancer Risk Management Program [phone] ( ) Sreedhar Angelo, MS [facility] [phone] Wendi Jama, MS, [facility] [phone] Sherie Garcia, MS, [facility] [phone] Divine Koo, MS, [facility] [phone] Cintia Canales, MS, [facility] [phone] Yeimy Brock, MS, [facility] [phone] Tierra Douglas, MS, [facility] [phone] References Nehal Osuna PDP, Valentin S, Jay Jay [place], Sunny JE, Samira JL, Star N, Trudy H, Toro O, Abhi A, Yesenia B, Dylon P, Corina S, Ruthie DM, Diogo N, Arnol E, Eitan H, Roberto E, Kendall J, Jennie J, Steffanie B, Tasha H, Leesa S, Clairerolcy H, Stacey H, Dewayne Grant, Sergio OP. Average risks of breast and ovarian cancer associated with BRCA1 or BRCA2 mutations detected incase series unselected for family history: a combined analysis of 222 studies. Am J Hum Syl[place]ia. 2003;72:1117-30. Katie N, Raven M, Bridgett G. BRCA1 and BRCA2 Hereditary Breast and Ovarian Cancer. Gene Reviews online. 2013. Adonis YC, Fantasma S, David G, Parker S. Breast cancer risk among male BRCA1 and BRCA2 mutation carriers. J Natl Cancer Inst. 2007;99:1811-4. Cooper OLVERA, Leigha I, Aris J, Bonnie E, Andrea ER, Teena F. Risk of breast cancer in male BRCA2 carriers. J Med Syl[place]ia. 2010;47:710-1. National Comprehensive Cancer Network. Clinical practice guidelines in oncology, colorectal cancer screening. Available online (registration required). 2015. Chavez MH, Crescencio J, Lyn J, Rigo LA, Iqra MS, Eng C. Lifetime cancer risks in individuals with germline PTEN mutations. Clin Cancer Res. 2012;18:400-7. Anabella Ash. Mikey Syndrome: A Critical Review of the Clinical Literature. J Sylwia Front Office Help. 2009:18:13-27. Tuan A, Arcadio D, Karoline S, Poppy P, Helioi T, Oksana M, Simone B, Jaraudel H, Carissa R, Criselda K, Reena L, Cooper OLVERA, Ruthie D, Ozzie DF, Memo MR, The Breast Cancer Susceptibility Collaboration (UK) & Ortega Sheikh. KATELYN mutations that cause ataxia-telangiectasia are breast cancer susceptibility alleles. Nature Genetics. 2006;38:873-875 Art N , Dayami Y, Tamiko J, Bertha L, Zo GM , Abdullahi ML, Gallinger S, Hardin AG, Syngal S, Zackary ML, Wood J , Dre R, Sobeida SZ, Denise JR, Radha VE, Yi M, Vogelstein B, Chelsi N, Wilian RH, Radha KW, and Rojas AP. KATELYN mutations in patients with hereditary pancreatic cancer. Cancer Discover. 2012;2:41-46 Vicky Solis, et al. Breast-Cancer Risk in Families with Mutations in PALB2. NEJM. 2014; 371(6):497-506. CHEK2 Breast Cancer Case-Control Consortium. CHEK2*1100delC and susceptibility to breast cancer: A collaborative analysis involving 10,860 breast cancer cases and 9,065 controls from 10 studies. Am J Hum [place], 74 (2004), pp. 4648-0590 Seb T, Kaleigh S, Preeti K, et al. Spectrum of Mutations in BRCA1, BRCA2, CHEK2, and TP53 in Families at High Risk of Breast Cancer. MAY. 2006;295(12):5366-4133. Lauro C, Starr D, Jose A, et al. Risk of breast cancer in women with a CHEK2 mutationwith and without a family history of breast cancer. J Clin Oncol. 2011;29:3134-0465. Erlin H, Antoni E, Chris SJ, et al. Contribution of germline mutations in the RAD51B, RAD51C, and RAD51D genes to ovarian cancer in the population. J Clin Oncol. 2015;33(26):3537-5291. Doi:10.1200/JCO.2015.61.2408. Sarmad T, Erik DF, Arpit P, et al. Mutations in BRIP1 confer high risk of ovarian cancer. Leticia Sylwia. 2011;43(11):2413-3737. doi:10.1038/ng.955. documented in this encounter Progress Notes Cintia Canales GC - 07/27/2022 12:00 PM CDT Darshana is a 76 year old who is being evaluated via a billable telephone visit. How would you like to obtain your AVS? MyChart If the video visit is dropped, the invitation should be resent by: Text to cell phone: [phone] Will anyone else be joining your video visit? No Phone call duration: 47 minutes Referring Provider: Yris Perez MD Presenting Information: I spoke with Darshana Brooks over the phone today for genetic counseling to discuss her personal and family history of cancer. With her permission, this appointment was conducted virtually due to COVID-19 precautions. We talked today to review this history, cancer screening recommendations, and available genetic testing options. Personal History: Darshana is a 76 year old female. She was diagnosed with a right breast cancer at age 71 in 2017 (IDC,ER positive, NH positive, HER2 negative). Treatment included lumpectomy on 02/08/17, radiation, and aromatase inhibitor. She had her first menstrual period at age ~15 and is postmenopausal (surgical). She does not have any children. Darshana reports that she had a hysterectomy and bilateral salpingo-oophorectomy around 1990 due to fibroids and heavy bleeding. She reports that she used hormone replacement therapy for about4 years beginning within a year after her hysterectomy. She stopped using this when her sister was diagnosed with breast cancer. She has not used oral contraceptives. She has clinical breast exams and mammograms; her most recent mammogram on 04/17/22 was benign. Her most recent colonoscopy on 08/15/21 detected one tubular adenoma and follow-up was recommended in 5 years. A previous colonoscopy on 06/03/17 detected no polyps and a colonoscopy on 10/27/12 detected one tubular adenoma. She reports additional previous colonoscopies with polyps removed (records not available for review today). Darshana reported no history of tobacco use and no alcohol use. 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 Family History: (Please see scanned pedigree for detailed family history information) Siblings: ?? Her sister was diagnosed with breast cancer at age 62. Treatment included unilateral mastectomy. She was then diagnosed with a second breast cancer in the other breast (different type than her firstcancer) at age 71. Treatment again included unilateral mastectomy. She at age 82. ?? Another sister is 80 years old with no known history of cancer. ?? Her daughter (Darshana's niece) is 51 years old and had breast cancer at age 46. Treatment includedbilateral mastectomy with reconstruction. ?? Her brother at age 43 due to mesothelioma diagnosed at age 42. Darshana reports that her father worked with asbestos and her brother likely had exposure due to this. ?? Another brother is 85 years old and was diagnosed with leukemia at age 81. She reports that he has a DDX41 mutation (per her cousin, has not talked with her brother about this yet). Maternal: ?? Her mother at age 81 with no known history of cancer. ?? Her aunt was diagnosed with breast cancer at an age unknown to Darshana and at age 61. ?? Another aunt at age 32 with no known history of cancer. She thinks this was due to a virus. ?? Her daughter (Darshana's cousin) was diagnosed with leukemia at age 83 and at age 89. She had a son who also has a history of leukemia and has had a stem cell transplant. Darshana talked with him and he has reportedly been found to have a DDX41 mutation. His sister has also had leukemia andhas had a stem cell transplant. She has reportedly not had genetic testing. Paternal: ?? Her father at age 91 with no known history of cancer. ?? She had one aunt who in her late 80s with no known cancer. ?? Her son (Darshana's cousin) possibly due to cancer. He reportedly quickly. Her maternal ethnicity is [place]. Her paternal ethnicity is [place]. There is no known Ashkenazi Baptism ancestry on either side of her family. Discussion: ?? Darshana's personal and family history of cancer is suggestive of a hereditary cancer syndrome. ?? We reviewed the features of sporadic, familial, and hereditary cancers. In looking at Darshana's family history, it is possible that a cancer susceptibility gene is present due to her personal and family history of breast cancer. She also has a family history of leukemia and reports a DDX41 mutation in her relatives. ?? We discussed the natural history and genetics of hereditary cancer. Based on her personal and family history of breast cancer, we discussed the BRCA1 and BRCA2 genes. Mutations in these genes cause a condition known as Hereditary Breast and Ovarian Cancer syndrome (HBOC). Women with a mutation in either of these genes are at increased risk for breast and ovarian cancer. There is also an increased risk for a second primary breast cancer. Men with a mutation in either of these genes are at increased risk for breast and prostate cancer. Both women and men may also be at increased risk for pancreatic cancer and melanoma. A detailed handout regarding these genes and other genes in which mutations are associated with an increased risk for breast cancer will be provided to Darshana via MyChart and can be found in the after visit summary. Topics included: inheritance pattern, cancer risks, cancer screening recommendations, and also risks, benefits and limitations of testing. ?? Additionally, we discussed the DDX41 gene, in which germline (inherited) mutations cause [id number] familial myelodysplastic syndrome and acute myeloid leukemia (MDS/AML). This is characterized by an increased risk of myeloid neoplasms, lymphoid neoplasms, adult-onset single- or multiple-lineage cytopenias (including aplastic anemia), and red blood cell macrocytosis. She is going to find outmore information about the particular mutation identified and genetic testing that has been done in her brother and cousins. ?? Based on her personal and family history, Darshana meets current National Comprehensive Cancer Network (NCCN) criteria for genetic testing of high- penetrance breast cancer susceptibility genes, specifically, BRCA1, BRCA2, CDH1, PALB2, PTEN, and TP53. ?? We discussed that there are additional genes that could cause increased risk for breast, leukemia, and other cancers. As many of these genes present with overlapping features in a family and accurate cancer risk cannot always be established based upon the pedigree analysis alone, it would be reasonable for Darshana to consider panel genetic testing to analyze multiple genes at once. ?? We briefly reviewed genetic testing options for Darshana based on her personal and family history: a panel of genes associated with an increased risk for certain cancers, or larger panel options to include genes associated with increased risk for multiple different cancer types. ?? Medical Management: For Darshana, we reviewed that the information from genetic testing may determine: ?? additional cancer screening for which Darshana may qualify (i.e. mammogram and breast MRI, more frequent colonoscopies, more frequent dermatologic exams, etc.), ?? options for risk reducing surgeries Darshana could consider (i.e. bilateral mastectomy, etc.), ?? and targeted chemotherapies if she were to develop certain cancers in the future (i.e. immunotherapy for individuals with Tyson syndrome, PARP inhibitors, etc.). ?? These recommendations will be discussed in detail once genetic testing is completed. ?? Darshana is interested in genetic testing. She will first obtain additional information from her brother and maternal cousins regarding the DDX41 gene mutation that has reportedly been identified in her family. She will obtain copies of their genetic testing results if available. We discussed that this will allow for the most accurate testing for herself. Plan: 1) No genetic testing was ordered today. As noted above, Darshana will first obtain more information about the genetic testing performed in her brother and maternal cousins that identified the DDX41 mutation, specifically copies of their genetic test results if possible. 2) She was provided with my contact information to send this to me when available for review. We will then talk again to coordinate testing for Darshana. She was encouraged to contact me even if she is not able to obtain any additional information about the DDX41 mutation from her family members, as we c an still proceed with testing for herself. 3) She was also encouraged to contact me with any additional questions or concerns. Cintia Canales MS, [facility] Licensed, Certified Genetic Counselor Office: [phone] Email: [email or web address] documented in this encounter Plan of Treatment Upcoming Encounters Date Type Specialty Care Team Description 10/26/2022 Lab Oncology Yris Perez MD [address] [place] [address] [id number] (Wo rk) 11/03/2022 Oncology Visit Oncology Yris Perez MD [address] [id number] (Wo rk) documented as of this encounter Visit Diagnoses Diagnosis 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, estrogen receptor positive (H) - Primary FHx: breast cancer Family history of malignant neoplasm of breast Family history of leukemia Family history of gene mutation documented in this encounter Additional Health Concerns Infection Onset Date Last Indicated Resolved Time 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, 01/08/2017 9 06/08/17, 08/26/17 documented as of this encounter Care Teams Swift Tender Relationship Specialty Start Date End Date Chan Duke MD PCP - General Internal Medicine 08/21/21 [address] [place] [address] [place] [id number] Jordin Allred, Assigned Musculoskeletal 03/02/21 DPM Provider [address] [facility] [address] [place] [address] Chan Duke MD Assigned PCP 08/24/21 [address] [place] [place] [address] Yris Perez Assigned Cancer Care 05/16/22 MD Ingrid Provider 420 [facility] 286 [place] [address] documented as of this encounter
--- OUTSIDE RECORDS SUMMARY | 2022-08-20 14:22 | XMS_ITS | Encounter Summary ---
:1945 Author Organization [place] Address [facility] [place] [address] Care Team Providers Name Role Phone Jordin Allred Amari DPJanelle Unavailable Chan Duke MD Primary Care Provider Chan Duke MD Unavailable Aaron Garcia MD Unavailable Reason for Visit Diagnostic Imaging Dexa (Routine) - Pending Review Specialty Diagnoses / Procedures Referred By Contact Refer red To Contact Diagnoses Use of anastrozole (Arimidex) Aaron Garcia MD Procedures DX Wrist Heel Radius [address] [place], [place] [address] Referral ID Status Reason Start Date Expiration Date Visits V isits Requested Authorized [id number] Pending 12/22/2021 12/22/2022 1 1 Review Encounter Details Date Type Department Care Team Description 12/22/2021 Ancillary Procedure [facility] Use of anastrozole [facility] (Arimidex) [address] [place] [address] [address] [place] [address] Social History Tobacco Use Types Packs/Day Years Used Date Passive Smoke Exposure - Never Smoker Smokeless Tobacco: Never Used Alcohol Use Standard Drinks/Week Comments No 0 (1 standard drink = 0.6 oz pure alcoho l) Sex Assigned at Date Recorded Female 01/27/2022 12:36 PM CDT COVID-19 Exposure Response Date Recorded In the last month, have you been in contact with Yes 12/22/2021 2:44 PM 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 documented as of this encounter Plan of Treatment Upcoming Encounters Date Type Specialty Care Team Description 10/26/2022 Lab Oncology Yris Perez MD [address] [place] [id number] (Wo rk) 11/03/2022 Oncology Visit Oncology Yris Perez MD [address] [address] (Wo rk) documented as of this encounter Procedures Procedure Name Priority Date/Time Associated Diagnosis Comme nts DX Routine 12/22/2021 3:08 PM Use of anastrozole Res ults for this WRIST/HEEL/RADIUS HOME IMPROVEMENT INSTALLER (Arimidex) procedure are in the results section. documented in this encounter Results DX Wrist Heel Radius (12/22/2021 3:08 PM HOME IMPROVEMENT INSTALLER) Anatomical Region Laterality Modality Dexa Bone Mineral Density Specimen (Source) Anatomical Location Collection Method / Collectio n Time Received Time / Laterality Volume Narrative 12/23/2021 12:03 PM HOME IMPROVEMENT INSTALLER BONE DENSITOMETRY [address] [address] 12/22/2021 ?? PATIENT: Darshana Brooks CHART: [id number] : ??1945 AGE: ??76 year old SEX: ??female REFERRING PROVIDER: ??Aaron Garcia MD ?? PROCEDURE: ??Bone density scanning was p erformed using DXA technology of the lumbar spine and hip. ??Scanning was performed on a Linkdex scanner. ??Reporting is completed in the form of a T-score. ??The T-score represents the standard deviation from p eak bone mass based on a young healthy adult. ?? REFERENCE T-SCORES: ?Normal ?-1.0 and greater ?Osteopenia ? Between -1. 0 and -2.5 ?Osteoporosis ? -2.5 and less ? RISK FACTORS:Early menopause before age 45, Fracture of foot, Condition related to bone loss: breast cancer ther apy: arimidex, follow up osteopenia CURRENT TREATMENT: ??Calcium with Vitami n D, Zometa (zoledronic acid) ?? FINDINGS: ? Lumbar Spine (L1-L4) ?T-score: ??-0.7, marked degenerative changes present ? Left Femoral Neck ?T-score: ??-1.9 ? Forearm (radius 33%) ?T-score: ??-1.0 The right femur is not acceptable for ev aluation due to previous arthroplasty. ? Lumbar (L1-L4) BMD: 1 .108 ?Previous: 0.994 ? Left Total Hip BMD: 0 .864 ? Previous: 0.826 ? Forearm (radius 33%) BMD: 0.790 ?? Previous: 0.760?? Comparison is made to another DXA perfor med on the same Linkdex ?? machine on 02/28/2018. ?? LATERAL VERTEBRAL ASSESSMENT Procedure: ??Vertebral fracture assessme nt was performed in the lateral decubitus position using a Linkdex ??densitometer. Indications for VFA: T-score of -1.0 or worse and age (female>69) Confounding factors for VFA: None. ??The LVA scan is interpretable from T8 to L4. VFA Findings: Using the semi-quantitativ e analysis of [place] there was evidence of no spinal deformity VFA Impression: Darshana Brooks has no v ertebral fractures identified on the VFA. IMPRESSION Osteopenia., Degenerative changes of the lumbar spine which may falsely elevate results. There has been significant increase in b one density of the lumbar spine. There has been a trend toward significan t increase in bone density of the hip(s). There has been no significant ch pritesh in bone density of the forearm. Recommendations include ensuring adequat e Calcium and Vitamin D. Follow up can be considered in 3 years. Debi Ansari M.D. Electronically signed ?? Aaron Garcia MD IMG DEXA ORDERABLES documented in this encounter Visit Diagnoses Diagnosis Use of anastrozole (Arimidex) Use of aromatase inhibitors documented in this encounter Additional Health Concerns Infection Onset Date Last Indicated Resolved Time 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, 01/08/2017 9 06/08/17, 08/26/17 documented as of this encounter Care Teams Cement Side Laster Relationship Specialty Start Date End Date Chan Duke MD PCP - General Internal Medicine 08/21/[address] [place] [place], [place] [phone] Jordin Allred, Assigned Musculoskeletal 03/02/21 DPM Provider [address] [facility] [address] [place], [place] [address] Chan Duke MD Assigned PCP 08/24/[address] [place] [address] [place] [address] Aaron Garcia Assigned Cancer Care 10/12/21 05/15/22 MD Max Provider [address] [place] [id number] documented as of this encounter
--- OUTSIDE RECORDS SUMMARY | 2022-08-20 14:22 | XMS_ITS | Encounter Summary ---
:1945 Author Organization [place] Address [address] [facility] [place] [address] Care Team Providers Name Role Phone Jordin Allred Amari DPJanelle Unavailable Chan Duke MD Primary Care Provider Chan Duke MD Unavailable Aaron Garcia MD Unavailable Reason for Visit Diagnostic Imaging Dexa (Routine) - Pending Review Specialty Diagnoses / Procedures Referred By Contact Refer red To Contact Diagnoses Aromatase inhibitor use Aaron Garcia MD Procedures DX Hip/Pelvis/Spine w Lat Fraction Anna DX Hip/Pelvis/Spine 500 [place], [place] [address] Referral ID Status Reason Start Date Expiration Date Visits V isits Requested Authorized [id number] Pending 10/13/2021 10/13/2022 1 1 Review Encounter Details Date Type Department Care Team Description 11/11/2021 Ancillary Procedure [facility] Aaron Garcia matase inhibitor Clinic Paulo Santana MD use [address] 500 [facility] [address] [place] [phone] Social History Tobacco Use Types Packs/Day Years Used Date Passive Smoke Exposure - Never Smoker Smokeless Tobacco: Never Used Alcohol Use Standard Drinks/Week Comments No 0 (1 standard drink = 0.6 oz pure alcoho l) Sex Assigned at Date Recorded Female 01/27/2022 12:36 PM CDT COVID-19 Exposure Response Date Recorded In the last month, have you been in contact with No / Unsure 10/15/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 documented as of this encounter Plan of Treatment Upcoming Encounters Date Type Specialty Care Team Description 10/26/2022 Lab Oncology Yris Perez MD [address] [address] (Wo rk) 11/03/2022 Oncology Visit Oncology Yris Perez MD [address] [address] (Wo rk) documented as of this encounter Visit Diagnoses Diagnosis Aromatase inhibitor use Use of aromatase inhibitors documented in this encounter Additional Health Concerns Infection Onset Date Last Indicated Resolved Time 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, 01/08/2017 9 06/08/17, 08/26/17 documented as of this encounter Care Teams Roving Department End Finder Relationship Specialty Start Date End Date Chan Duke MD PCP - General Internal Medicine 08/21/[address] [place] [place] [address] Jordin Allred, Assigned Musculoskeletal 03/02/21 DPM Provider [address] [facility] [address] [place], [place] [phone] Chan Duke MD Assigned PCP 08/24/[address] [place] [address] [place] [place] [id number] Aaron Garcia Assigned Cancer Care 10/12/21 05/15/22 MD Max Provider [address] [place] [address] documented as of this encounter
--- OUTSIDE RECORDS SUMMARY | 2022-08-20 14:22 | XMS_ITS | Encounter Summary ---
:1945 Author Organization [place] Address [facility] [place] [address] Care Team Providers Name Role Phone Jordin Allred Amari JORDAN Unavailable Chan Duke MD Primary Care Provider Chan Duke MD Unavailable Aaron Garcia MD Unavailable Reason for Visit Diagnostic Imaging NM (Routine) - Closed Specialty Diagnoses / Procedures Referred By Contact Refer red To Contact Diagnoses Malignant neoplasm of upper-inner quadrant of right breast in female, estrogen receptor positive (H) Yris Perez, Procedures NM Bone Scan Whole Body [address] [address] Referral ID Status Reason Start Date Expiration Date Visits Requ ested Visits Authorized [id number] Closed 05/07/2022 05/07/2023 2 2 Encounter Details Date Type Department Care Team Description 05/12/2022 Hospital Encounter [facility] Yris Perez Imaging MD Ingrid [address] [facility] 420 [facility] [address] [id number] (Wo rk) Social History Tobacco Use Types [...] in contact with No / Unsu re 05/12/2022 8:44 AM CDT someone who was confirmed or suspected to have Coronavirus/COVID-19? documented as of this encounter Medications at Time of Discharge Medication Sig Dispensed Refills Start Date End Date albuterol (PROAIR HFA) 108 INHALE 2 PUFFS 4 8.5 Inhaler 11 (90 Base) MCG/ACT TIMES A DAY inhalerIndications: NEEDED Chronic obstructive pulmonary disease, unspecified COPD type (H) allopurinol (ZYLOPRIM) 300 TAKE 1 TABLET BY 90 tablet 2 MG tabletIndications: MOUTH EVERY DAY Acute idiopathic gout of left foot Ascorbic Acid (VITAMIN C 0 PO) calcium carbonate (OS-ROSALINO) Take 1 tablet by 0 500 MG tablet mouth daily Cholecalciferol (VITAMIN Take 2,000 Units 0 D3 PO) by mouth daily CRANBERRY PO Take by mouth 0 daily loratadine (CLARITIN) 10 Take 10 mg by 0 MG tablet mouth vitamin B complex with Take 1 tablet by 0 vitamin C (VITAMIN B mouth daily COMPLEX) tablet anastrozole (ARIMIDEX) 1 Take 1 tablet (1 90 tablet 3 10/0608/14/2022 MG tabletIndications: mg) by mouth Malignant neoplasm of daily upper-inner quadrant of right breast in female, estrogen receptor positive (H) Magnesium 500 MG CAPS Take by mouth 0 08/14/2022 daily Multiple Vitamins-Minerals 0 08/14/2022 (ZINC PO) documented as of this encounter Plan of Treatment Upcoming Encounters Date Type Specialty Care Team Description 10/26/2022 Lab Oncology Yris Perez MD [address] [address] (Madeleine proctor) 11/03/2022 Oncology Visit Oncology Yris Perez MD 420 [facility] 286 [place] [address] (Madeleine proctor) documented as of this encounter Procedures Procedure Name Priority Date/Time Associated Diagnosis Comme nts NM BONE SCAN WHOLE Routine 05/12/2022 1:22 PM Malignant neopla sm Results for this BODY CDT of upper-inner procedure are in quadrant of right the result s breast in female, section. estrogen receptor positive (H) documented in this encounter Results NM Bone Scan Whole Body (05/12/2022 1:22 PM CDT) Anatomical Region Laterality Modality Whole Body, SUBRAD CT BODY, P [facility] Nuclear Medicine Specimen (Source) Anatomical Location Collection Method / Collectio n Time Received Time / Laterality Volume Impressions 05/12/2022 1:37 PM CDT IMPRESSION: ?? 1. No evidence for osseous metastases. 2. Degenerative type activity in the cer vical and thoracic spine are new. 3. Uncomplicated right hip arthroplasty. MARCELO PHOENIX MD SYSTEM ID: ??[id number] Narrative 05/12/2022 1:37 PM CDT NM BONE SCAN WHOLE BODY ??05/12/2022 1:22 PM HISTORY: mid back pain; Malignant neopla sm of upper-inner quadrant of right breast in female, estrogen recepto r positive (H); Malignant neoplasm of upper-inner quadrant of righ t breast in female, estrogen receptor positive (H) DOSE: ??26.5 mCi 99mTc-MDP COMPARISON: Prior bone scan: 02/05/2017 Relevant imaging study: 08/22/2020 CT abd omen pelvis. FINDINGS: No focal areas of increased ac tivity to suggest osseous metastases. Mild degenerative type activ ity in the cervical and thoracic spine has developed. Right hip arthroplasty. The uptake adjacent to the femoral stem has resolve d. Normal renal uptake is seen bilaterally. Procedure Note Marcelo Phoenix MD - 05/12/2022F ormatting of this note might be different from the original. NM BONE SCAN WHOLE BODY 05/12/2022 1:22 P M HISTORY: mid back pain; Malignant neopla sm of upper-inner quadrant of right breast in female, estrogen recepto r positive (H); Malignant neoplasm of upper-inner quadrant of righ t breast in female, estrogen receptor positive (H) DOSE: 26.5 mCi 99mTc-MDP COMPARISON: Prior bone scan: 02/05/2017 Relevant imaging study: 08/22/2020 CT abd omen pelvis. FINDINGS: No focal areas of increased ac tivity to suggest osseous metastases. Mild degenerative type activ ity in the cervical and thoracic spine has developed. Right hip arthroplasty. The uptake adjacent to the femoral stem has resolve d. Normal renal uptake is seen bilaterally. IMPRESSION: 1. No evidence for osseous metastases. 2. Degenerative type activity in the cer vical and thoracic spine are new. 3. Uncomplicated right hip arthroplasty. MARCELO PHOENIX MD SYSTEM ID: [id number] Yris Perez MD IMG NM ORDERABLES documented in this encounter Visit Diagnoses Not on filedocumented in this encounter Additional Health Concerns Infection Onset Date Last Indicated Resolved Time 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, 01/08/2017 9 06/08/17, 08/26/17 documented as of this encounter Care Teams Automotive Sales Professional Relationship Specialty Start Date End Date Chan Duke MD PCP - General Internal Medicine 08/21/21 [address] [place] [place], [place] [phone] Jordin Allred, Assigned Musculoskeletal 03/02/21 DPM Provider [address] [facility] [address] [place], [place] [phone] Chan Duke MD Assigned PCP 08/24/21 [address] [place] [place], [place] [address] Aaron Garcia Assigned Cancer Care 10/12/21 05/15/22 MD Max Provider 500 [place], [place] [phone] documented as of this encounter
--- OUTSIDE RECORDS SUMMARY | 2022-08-20 14:22 | XMS_ITS | Encounter Summary ---
:1945 Author Organization [place] Address [facility] 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 documented as of this encounter Plan of Treatment Upcoming Encounters Date Type Specialty Care Team Description 10/26/2022 Lab Oncology Yris Perez MD [address] [address] (Wo rk) 11/03/2022 Oncology Visit Oncology Yris Perez MD [address] [address] (Wo rk) documented as of this encounter Visit Diagnoses Not on filedocumented in this encounter Additional Health Concerns Infection Onset Date Last Indicated Resolved Time 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, 01/08/2017 9 06/08/17, 08/26/17 documented as of this encounter Care Teams Back Pad Inspector Relationship Specialty Start Date End Date Chan Duke MD PCP - General Internal Medicine 08/21/21 [address] [place] [address] [place] [phone] Jordin Allred, Assigned Musculoskeletal 03/02/21 DPM Provider [address] [facility] [address] [place] [address] Chan Duke MD Assigned PCP 08/24/21 [address] [place] [address] [place] [place] [id number] documented as of this encounter
--- OUTSIDE RECORDS SUMMARY | 2022-08-20 14:22 | XMS_ITS | Encounter Summary ---
:1945 Author Organization [place] Address [address] [facility] [place] [address] Care Team Providers Name Role Phone Jordin Allred Amari DPJanelle Unavailable Chan Duke MD Primary Care Provider Chan Duke MD Unavailable Yris Perez MD Unavailable Reason for Visit Reason Comments Labs Only Encounter Details Date Type Department Care Team Description 05/21/2022 Lab [facility] [place] [facility] Yris Perez Malignant neoplasm of Center [place] [address] [place] [address] right breast in female, [address] [facility] 286 estrogen receptor [facility] [place] [address] positive (H) [place] [address] Social History Tobacco Use Types [...] documented as of this encounter Progress Notes Mary Ann Oneil, HERBIE - 05/21/2022 3:00 PM CDT Seo Associate Note: Darshana Brooks presents today for blood draw. Patient seen by provider today: No. Appeals Analyst present during visit today: Not Applicable. Concerns: No Concerns. Procedure: Labs drawn Post Assessment: Labs drawn without difficulty: Yes. Discharge Plan: Departure Mode: Ambulatory. Face to Face Time: 10 min. Mary Ann Oneil CMA documented in this encounter Plan of Treatment Upcoming Encounters Date Type Specialty Care Team Description 10/26/2022 Lab Oncology Yris Perez MD [address] [place] [address] (Wo rk) 11/03/2022 Oncology Visit Oncology Yris Perez MD [address] [place] [address] (Wo rk) documented as of this encounter Procedures Procedure Name Priority Date/Time Associated Diagnosis Comme nts CANCER ANTIGEN 15-3 Routine 05/21/2022 3:13 PM Malignant neopl asm Results for this CDT of upper-inner procedure are in quadrant of right the result s breast in female, section. estrogen receptor positive (H) documented in this encounter Results (ABNORMAL) Cancer Antigen 15-3 (05/21/2022 3:13 PM CDT) athologist Signature Cancer Antigen 30 (H) <=25 U/mL 05/21/2022 [facility] 15-3 8:27 PM CDT Comment: This result is obtained using t [employer] CA 15-3 II method on [...] City/State/ZIP Code Phon e Number [facility] [place] [address] [phone] Lab [address] [facility] [address] Building, Room 3-580 documented in this encounter Visit Diagnoses Diagnosis 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, estrogen receptor positive (H) documented in this encounter Additional Health Concerns Infection Onset Date Last Indicated Resolved Time 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, 01/08/2017 9 06/08/17, 08/26/17 documented as of this encounter Care Teams Bill Poster Installer Relationship Specialty Start Date End Date Chan Duke MD PCP - General Internal Medicine 08/21/21 [address] [place] [address] Jordin Allred, Assigned Musculoskeletal 03/02/21 DPM Provider [address] [facility] [address] [place] [address] Chan Duke MD Assigned PCP 08/24/[address] [place] [phone] Yris Perez Assigned Cancer Care 05/16/22 MD Ingrid Provider 420 [facility] 286 [place], [place] [address] documented as of this encounter
--- OUTSIDE RECORDS SUMMARY | 2022-08-20 14:22 | XMS_ITS | Encounter Summary ---
:1945 Author Organization [place] Address [facility] 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 documented as of this encounter Plan of Treatment Upcoming Encounters Date Type Specialty Care Team Description 10/26/2022 Lab Oncology Yris Perez MD [address] [address] (Wo rk) 11/03/2022 Oncology Visit Oncology Yris Perez MD [address] [address] (Wo rk) documented as of this encounter Visit Diagnoses Not on filedocumented in this encounter Additional Health Concerns Infection Onset Date Last Indicated Resolved Time 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, 01/08/2017 9 06/08/17, 08/26/17 documented as of this encounter Care Teams Physical Therapy Director Relationship Specialty Start Date End Date Chan Duke MD PCP - General Internal Medicine 08/21/21 [address] [place] [address] Jordin Allred, Assigned Musculoskeletal 03/02/21 DPM Provider [address] [facility] [address] [place] [address] Chan Duke MD Assigned PCP 08/24/21 [address] [place] [address] [place] [address] Aaron Garcia Assigned Cancer Care 10/12/21 05/15/22 MD Max Provider 500 [place], [place] [phone] documented as of this encounter
--- OUTSIDE RECORDS SUMMARY | 2022-08-20 14:22 | XMS_ITS | Encounter Summary ---
:1945 Author Organization [place] Address [facility] [place] [address] Care Team Providers Name Role Phone Jordin Allred Amari JORDAN Unavailable Chan Duke MD Primary Care Provider Chan Duke MD Unavailable Aaron Garcia MD Unavailable Yris Perez MD Unavailable [phone] Reason for Referral Consultation (Routine: Next available opening) - Pending Review Specialty Diagnoses / Procedures Referred By Contact Refer red To Contact Diagnoses Malignant neoplasm of upper-inner quadrant of right breast in female, estrogen receptor positive (H) FHx: breast cancer Yris Perez MD [address] [address] Referral ID Status Reason Start Date Expiration Date Visits V isits Requested Authorized [id number] Pending 05/07/2022 05/07/2023 1 1 Review Diagnostic Imaging NM (Routine) - Closed Specialty Diagnoses / Procedures Referred By Contact Refer red To Contact Diagnoses Malignant neoplasm of upper-inner quadrant of right breast in female, estrogen receptor positive (H) Yris Perez, Procedures NM Bone Scan Whole Body [address] [address] Referral ID Status Reason Start Date Expiration Date Visits Requ ested Visits Authorized [id number] Closed 05/07/2022 05/07/2023 2 2 Reason for Visit Reason Comments Oncology Clinic Visit Malignant neoplasm of female breast, unspecified estrogen receptor status, unspecified laterality, unspecified site of breast Encounter Details Date Type Department Care Team Description 05/07/2022 Oncology Visit [facility] Yris Shelby neoplasm of upper-inner quadrant of right breast in female, estrogen receptor positive (H) (Primary Dx); Cancer Center MD Ingrid FHx: breast cancer [address] [address] [place] [facility] [address] [facility] [address] [facility] [phone] [place], [place] (Work) [address] [phone] Social History Tobacco Use Types Packs/Day Years [...] Sign Reading Time Taken Comments Blood Pressure 163/84 05/07/2022 8:35 AM CDT Pulse 75 05/07/2022 8:35 AM CDT Temperature 36.1 ??C (97 ??F) 05/07/2022 8:35 AM CDT Respiratory Rate 16 05/07/2022 8:35 AM CDT Oxygen Saturation 97% 05/07/2022 8:35 AM CDT Inhaled Oxygen Concentration - - Weight 67.3 kg (148 lb 4.8 oz) 05/07/2022 8:35 AM CDT Height 167.6 cm (5' 6) 05/07/2022 8:35 AM CDT Body Mass Index 23.94 05/07/2022 8:35 AM CDT documented in this encounter Patient Instructions Patient InstructionsMaribeth Horn RN - 05/07/2022 8:30 AM CDT RTC 6 months w/ labs -- 11/03/22 at 9:30am Genetics referral -- 07/27/22 at 12pm Maribeth Horn RN, BSN, OCN Nurse Craft Superintendent [facility] [place] P: [phone] F: [phone] documented in this encounter Progress Notes Yris Perez MD - 05/07/2022 10:46 AM CDT Visit Date: 05/07/2022 Darell Brooks is a 76-year-old postmenopausal patient with a history of right- sided breast cancer and is switching from Dr. Garcia's clinic over to this clinic for continued oncologic care. She is a new patient to my clinic. DATA REVIEW: I have reviewed all of her records as well as all of her pathology and pertinent screening. CHIEF COMPLAINT: 1. History of right-sided breast cancer diagnosed in 01/2017, T1 N0 M0, ER/AZ positive, HER-2 receptor negative. 2. Oncotype in the low risk of recurrence range. 3. Currently on active treatment with an aromatase inhibitor. HISTORY OF PRESENT ILLNESS: Darell is a 76-year-old postmenopausal patient who developed breast cancer at age 71. It was a favorable right-sided tumor with a low score on her Oncotype and she is statuspost right-sided lumpectomy and sentinel lymph node biopsy as well as radiation therapy to the rightbreast and is now on anastrozole. She is now 5 years on anastrozole and is expecting to have it stopped today. Overall, she has done well with the anastrozole, but it has caused some symptomatology. Specifically, it interrupts her sleep as well as some other minor symptoms from it. She is up to date on a bone density, which she had done in 12/2021. She was on Zometa for 3 years because she had osteope david and a fracture and the bone density that was done in December did show a significant increase inthe lumbar spine and a tendency towards an increase in the hips. I have discussed that with her today. She will stop the anastrozole at any point at this point. COMPREHENSIVE REVIEW OF SYSTEMS: A 14-point comprehensive review of systems has been done with her. Overall, she feels well. She denies cough, shortness of breath, any GI or symptomatology, any neurological symptomatology. She does complain of some pain in the mid part of her back, which has been going on for the last 3 months. In order to relieve the pain, she has to lie on the floor and positionherself in a different way to get relief. She has had some spinal stenosis in the cervical and thoracic area before, but because of her history of cancer and it being estrogen receptor positive, I think we should do a bone scan on her to make sure she does not have anything cancer related. She will also need routine blood work today. I have discussed this with her and she is in agreement with the plan. MEDICATIONS AND ALLERGIES: Outlined in the nursing records. FAMILY HISTORY: Sister with breast cancer at age 62, aunt with breast cancer, niece with breast cancer on the maternal side. A brother with leukemia in his late 70s or early 80s. Brother with mesothelioma. GENETIC TESTING: No genetic testing has been done. Last mammogram was done on 04/17/2022 and that was negative. PAST SURGICAL HISTORY: History of lumpectomy, history of sentinel lymph node biopsy, history of colonoscopy, history of cystoscopy, history of hysterectomy and bilateral salpingo-oophorectomy, history of hip replacement. SOCIAL HISTORY: The patient is . She is here with her . She is a nonsmoker. She has nobiological children. PHYSICAL EXAMINATION: GENERAL: She is well-appearing lady in no acute distress. VITAL SIGNS: Stable. NECK: No masses or goiter. CHEST: Clear to auscultation and percussion bilaterally. HEART: Sounds 1, 2 normal, no added sounds, no murmurs. GASTROINTESTINAL: Abdomen is soft and nontender. No hepatosplenomegaly. EXTREMITIES: Legs without tenderness or edema. MUSCULOSKELETAL: She is moving all extremities. NEUROLOGIC: She is alert and oriented x3. SKIN: No rashes or lesions. BREASTS: The patient is status post right-sided lumpectomy. The scar looks good. No further palpablemasses. Right axilla negative. Left breast normal, no palpable masses. Left axilla negative. LABORATORY DATA REVIEW: I have reviewed her last bone density. Her last mammogram was done on 04/17/2022, I have reviewed that and that was negative. I have reviewed all her pertinent records from her previous breast cancer diagnosis. White cell count 6.6, hemoglobin 15.2, platelets 225. Liver function test within normal limits. ALT slightly elevated at 53, which is not new for her. IMPRESSION: This is a 76-year-old patient with a favorable right-sided breast cancer. She is now 5 years on aromatase inhibitors, so she is going to stop the aromatase inhibitor since she has completedout 5 years. I have drawn labs today. Because of her mid back pain, I am going to ask for a bone scan to make sure there is nothing cancer related since it is new pain in the last 3 months. I also discussed with her today being evaluated by our Genetics team since there is quite a strong family history of cancer, particularly she has a first-degree relative with breast cancer and a brother with leukemia. She is in agreement with that plan. All of the above has been discussed with her. COMPLEXITY OF CASE TODAY: High. Yris Perez MD MT: PAKMT Name: DARELL BROOKS MRN: [id number] Account: [id number] : 1945 Visit Date: 05/07/2022 Document: [id number] documented in this encounter Nursing Notes Kelsey Mark CMA - 05/07/2022 8:30 AM CDT Oncology Rooming Note May 07, 2022 8:38 AM Darell Brooks is a 76 year old female who presents for: Chief Complaint Patient presents with ??? Oncology Clinic Visit Malignant neoplasm of female breast, unspecified estrogen receptor status, unspecified laterality, unspecified site of breast Initial Vitals: BP (!) 163/84 Pulse 75 Temp 97 ??F (36.1 ??C) (Tympanic) Resp 16 Ht 1.676 m (5' 6) Wt 67.3 kg (148 lb 4.8 oz) SpO2 97% BMI 23.94 kg/m?? Estimated body mass index is 23.94kg/m?? as calculated from the following: Height as of this encounter: 1.676 m (5' 6). Weight as of this encounter: 67.3 kg (148 lb 4.8 oz). Body surface area is 1.77 meters squared. No Pain (0) Comment: Data Unavailable No LMP recorded. Patient is postmenopausal. Allergies reviewed: Yes Medications reviewed: Yes Medications: Medication refills not needed today. Pharmacy name entered into SugarCRM: [id number] - [facility] [id number] Clinical concerns: follow up - would like to discuss getting off the Arimidex. Is having mid back pain x few years. Has been occurring more frequently. Kelsey Mark CMA documented in this encounter Plan of Treatment Upcoming Encounters Date Type Specialty Care Team Description 10/26/2022 Lab Oncology Yris Perez MD [address] [place] [address] (Madeleine proctor) 11/03/2022 Oncology Visit Oncology Yris Perez MD [address] [phone] (Madeleine proctor) Scheduled Referrals Name Type Priority Associated Diagnoses Order S chedule Cancer Risk Referral Routine: Next Malignant neoplasm Expected : Mgmt/Cancer Genetic available opening of upper-inner 0 05/07/2022 Counseling Referral quadrant of right (Ap proximate), breast in female, Expires: estrogen receptor 05/07/2023 positive (H) FHx: breast cancer documented as of this encounter Results NM Bone Scan Whole Body (05/12/2022 1:22 PM CDT) Anatomical Region Laterality Modality Whole Body, SUBRAD CT BODY, P [facility] Nuclear [facility] Specimen (Source) Anatomical Location Collection Method / Collectio n Time Received Time / Laterality Volume Impressions 05/12/2022 1:37 PM CDT IMPRESSION: ?? 1. No evidence for osseous metastases. 2. Degenerative type activity in the cer vical and thoracic spine are new. 3. Uncomplicated right hip arthroplasty. MARCELO PHOENIX MD SYSTEM ID: ??[id number] Narrative 05/12/2022 1:37 PM CDT NM BONE [...] hip arthroplasty. MARCELO PHOENIX MD SYSTEM ID: [id number] Yris Perez MD [facility] ORDERABLES (ABNORMAL) Cancer Antigen 15-3 (05/07/2022 9:14 AM CDT) P athologist Signature Cancer Antigen 29 (H) <=25 U/mL 05/07/2022 [facility] 15-3 1:56 PM CDT Comment: This result is obtained using t mike Magdalena Elecsys CA 15-3 II method on the sherley e801 immunoassay analyzer. Results obtained with different assay methods or kits cannot be used interchangeably. Specimen Anatomical Collection Method / Collection Time Recei caitlin Time (Source) Location / Volume Laterality Blood STRUCTURE OF LEFT Venipuncture / 05/07/2022 9:14 05/07 9:33 UPPER LIMB / Unknown AM CDT AM CDT Unknown Yris Perez MD LAB - BLOOD ORDERABLES Performing Organization Address City/State/ZIP Code Phon e Number [facility] [place] [address] [phone] Lab 500 [facility] J Building, Room 3-580 (ABNORMAL) Comprehensive metabolic panel (BMP + Alb, Alk Phos, ALT, AST, Total. Bili, TP) (05/07/2022 9:14 AM CDT) Patholo gist Method Time Signature Sodium 138 133 - 144 05/07/2022 [facility] mmol/L 9:55 AM CDT Potassium 4.1 3.4 - 5.3 05/07/2022 LABORATORY mmol/L 9:55 AM CDT Chloride 106 94 - 109 05/07/2022 LABORATORY mmol/L 9:55 AM CDT Carbon Dioxide 29 20 - 32 05/07/2022 LABORATORY (CO2) mmol/L 9:55 AM CDT Anion Gap 3 3 - 14 05/07/2022 LABORATORY mmol/L 9:55 AM CDT Urea Nitrogen 16 7 - 30 05/07/2022 [facility] mg/dL 9:55 AM CDT Creatinine 0.92 0.52 - 05/07/2022 LABORATORY 1.04 mg/dL 9:55 AM CDT Calcium 9.1 8.5 - 10.1 05/07/2022 LABORATORY mg/dL 9:55 AM CDT Glucose 105 (H) 70 - 99 05/07/2022 LABORATORY mg/dL 9:55 AM CDT Alkaline 85 40 - 150 05/07/2022 [facility] Phosphatase U/L 9:55 AM CDT AST 25 0 - 45 U/L 05/07/2022 [facility] 9:55 AM CDT ALT 53 (H) 0 - 50 U/L 05/07/2022 [facility] 9:55 AM CDT Protein Total 7.2 6.8 - 8.8 05/07/2022 [facility] g/dL 9:55 AM CDT Albumin 3.7 3.4 - 5.0 05/07/2022 [facility] g/dL 9:55 AM CDT Bilirubin Total 0.4 0.2 - 1.3 05/07/2022 [facility] mg/dL 9:55 AM CDT GFR Estimate 65 >60 05/07/2022 [facility] mL/min/1.7 9:55 AM CDT 3m2 Comment: Effective November 04, 2021 eGF Rcr in adults is calculated using the 2020 CKD-EPI creatinine equation which includ es age and gender (Ji et al., NE, DOI: 10.1056/IZBNfs4733719) Specimen Anatomical Collection Method / Collection Time Recei caitlin Time (Source) Location / Volume Laterality Blood STRUCTURE OF LEFT Venipuncture / 05/07/2022 9:14 05/07 9:33 UPPER LIMB / Unknown AM CDT AM CDT Unknown [facility] Ingrid Perez MD LAB - BLOOD ORDERABLES Performing Organization Address City/State/ZIP Code Phon [place] [address] Care Lab [address] Lab (1st floor, no room number) CBC with platelets (05/07/2022 9:14 AM CDT) P athologist Signature WBC Count 6.6 4.0 - 11.0 05/07/2022 [facility] 10e3/uL 9:36 AM CDT RBC Count 4.71 3.80 - 05/07/2022 [facility] 5.20 9:36 AM CDT 10e6/uL Hemoglobin 15.2 11.7 - 05/07/2022 [facility] 15.7 g/dL 9:36 AM CDT Hematocrit 45.9 35.0 - 05/07/2022 [facility] 47.0 % 9:36 AM CDT MCV 98 78 - 100 05/07/2022 [facility] fL 9:36 AM CDT MCH 32.3 26.5 - 05/07/2022 [facility] 33.0 pg 9:36 AM CDT MCHC 33.1 31.5 - 05/07/2022 [facility] 36.5 g/dL 9:36 AM CDT RDW 13.8 10.0 - 05/07/2022 [facility] 15.0 % 9:36 AM CDT Platelet Count 225 150 - 450 05/07/2022 [facility] 10e3/uL 9:36 AM CDT Specimen Anatomical Collection Method / Collection Time Recei caitlin Time (Source) Location / Volume Laterality Blood STRUCTURE OF LEFT Venipuncture / 05/07/2022 9:14 05/07 9:33 UPPER LIMB / Unknown AM CDT AM CDT Unknown [facility] Ingrid Perez MD LAB - BLOOD ORDERABLES Performing Organization Address City/State/ZIP Code Phon e Number [place] [phone] Care Lab [address] Lab (1st floor, no room number) documented in this encounter Visit Diagnoses Diagnosis 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, estrogen receptor positive (H) - Primary FHx: breast cancer Family history of malignant neoplasm of breast 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, estrogen receptor positive (H) documented in this encounter Additional Health Concerns Infection Onset Date Last Indicated Resolved Time 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, 01/08/2017 9 06/08/17, 08/26/17 documented as of this encounter Care Teams School Business Administrator Relationship Specialty Start Date End Date Chan Duke MD PCP - General Internal Medicine 08/21/21 [address] [facility] [id number] Jordin Allred, Assigned Musculoskeletal 03/02/21 DPM Provider [address] [facility] [address] [place] [address] Chan Duke MD Assigned PCP 08/24/21 [address] [place], [place] [phone] Aaron Garcia Assigned Cancer Care 10/12/21 05/15/22 MD Max Provider 500 [place] [address] Yris Perez Assigned Cancer Care 05/16/22 MD Ingrid Provider 420 [facility] 286 [place] [address] documented as of this encounter
--- OUTSIDE RECORDS SUMMARY | 2022-08-20 14:22 | XMS_ITS | Encounter Summary ---
:1945 Author Organization [place] Address [facility] [place] [address] Care Team Providers Name Role Phone Jordin Allred Amari JORDAN Unavailable Chan Duke MD Primary Care Provider Chan Duke MD Unavailable Aaron Garcia MD Unavailable Reason for Visit Reason Onset Date Comments Clinic Care Coordination - Follow-up 10/13/2021 Rig ht femur X ray Encounter Details Date Type Department Care Team Description 10/13/2021 Telephone [facility] Shruthi Maddox, Clinic Care Coordination Cancer [facility] [facility] - Follow-up (Right femur [address], [facility] [phone] X ray ) 610 (Work) [facility] [place] [phone] Social History Tobacco Use Types Packs/Day Years [...] with No / Unsure 10/15/2021 12:43 PM RIVET FLUNKY someone who was confirmed or suspected to have Coronavirus / COVID-19? documented as of this encounter Miscellaneous Notes Telephone Encounter - Shruthi Maddox, RN - 10/16/2021 8:37 AM CST Called Darshana she is aware of her right femur X ray report which was normal. . She is schedule for abone density at the end of the month. Outsole Compressor will follow up with Darshana after bone density. Shruthi Maddox RN,BSN,OCN,CBCN T FLUNKY Telephone Encounter - Shruthi Maddox RN - 10/13/2021 10:03 AM CST Called Darshana left message on her voice mail for her to call [phone] to schedule her right femur X ray that is needed. Shruthi Maddox RN,BSN,OCN,CBCN T FLUNKY documented in this encounter Plan of Treatment Upcoming Encounters Date Type Specialty Care Team Description 10/26/2022 Lab Oncology Yirs Perez MD [address] [place] [phone] (Wo rk) 11/03/2022 Oncology Visit Oncology Yris Perez MD [address] [place] [address] (Wo rk) documented as of this encounter Visit Diagnoses Not on filedocumented in this encounter Additional Health Concerns Infection Onset Date Last Indicated Resolved Time 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, 01/08/2017 9 06/08/17, 08/26/17 documented as of this encounter Care Teams Shader And Toner Relationship Specialty Start Date End Date Chan Duke MD PCP - General Internal Medicine 08/21/21 [address] [facility] [address] [place], [place] [phone] Jordin Allred, Assigned Musculoskeletal 03/02/21 DPM Provider [address] [facility] [address] [place] [address] Chan Duke MD Assigned PCP 08/24/21 [address] [place] [address] Aaron Garcia Assigned Cancer Care 10/12/21 05/15/22 MD Max Provider 500 [place] [address] documented as of this encounter
--- OUTSIDE RECORDS SUMMARY | 2022-08-20 14:22 | XMS_ITS | Encounter Summary ---
:1945 Author Organization [place] Address [address] [facility] [place] [address] Care Team Providers Name Role Phone Jordin Allred Amari JORDAN Unavailable Chan Duke MD Primary Care Provider Chan Duke MD Unavailable Aaron Garcia MD Unavailable Encounter Details Date Type Department Care Team Description 12/29/2021 Medical Correspondence [facility] Scan, [facility] Health Info Mgmt Non-Provider Srvcs [address] [place] [phone] Social History Tobacco Use Types Packs/Day Years [...] contact with Yes 12/22/2021 2:44 PM HOME HEALTH CLINICAL LIAISON someone who was confirmed or suspected to have Coronavirus / COVID-19? documented as of this encounter Plan of Treatment Upcoming Encounters Date Type Specialty Care Team Description 10/26/2022 Lab Oncology Yris Perez MD 420 [facility] [address] [place] [address] (Wo rk) 11/03/2022 Oncology Visit Oncology Yris Perez MD 420 [facility] 286 [place], [place] [address] (Wo rk) documented as of this encounter Visit Diagnoses Not on filedocumented in this encounter Additional Health Concerns Infection Onset Date Last Indicated Resolved Time 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, 01/08/2017 9 06/08/17, 08/26/17 documented as of this encounter Care Teams Bundle Packer Relationship Specialty Start Date End Date Chan Duke MD PCP - General Internal Medicine 08/21/21 [address] [place] [place], [place] [phone] Jordin Allred, Assigned Musculoskeletal 03/02/21 DPM Provider [address] [facility] [address] [place] [address] Chan Duke MD Assigned PCP 08/24/21 [address] [place], [place] [phone] Aaron Garcia Assigned Cancer Care 10/12/21 05/15/22 MD Max Provider 500 [place], [place] [phone] documented as of this encounter
--- OUTSIDE RECORDS SUMMARY | 2022-08-20 14:22 | XMS_ITS | Encounter Summary ---
:1945 Author Organization [place] Address [address] [facility] [place] [address] Care Team Providers Name Role Phone Jordin Allred Amari DPJanelle Unavailable Chan Duke MD Primary Care Provider Chan Duke MD Unavailable Aaron Garcia MD Unavailable Reason for Visit Diagnostic Imaging Dexa (Routine) - Pending Review Specialty Diagnoses / Procedures Referred By Contact Refer red To Contact Diagnoses Aromatase inhibitor use Aaron Garcia MD Procedures DX Hip/Pelvis/Spine w Lat Fraction Anna DX Hip/Pelvis/Spine 500 [place], [place] [address] Referral ID Status Reason Start Date Expiration Date Visits V isits Requested Authorized [id number] Pending 10/13/2021 10/13/2022 1 1 Review Encounter Details Date Type Department Care Team Description 12/22/2021 Ancillary Procedure [facility] Aaron Garcia matase inhibitor Clinic Paulo Santana MD use [address] [facility] [address] [place] [phone] Social History Tobacco Use Types Packs/Day Years [...] in contact with Yes 12/22/2021 2:44 PM 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 documented as of this encounter Plan of Treatment Upcoming Encounters Date Type Specialty Care Team Description 10/26/2022 Lab Oncology Yris Perez MD [address] [address] (Wo rk) 11/03/2022 Oncology Visit Oncology Yris Perez MD [address] [address] (Wo rk) documented as of this encounter Procedures Procedure Name Priority Date/Time Associated Diagnosis Comme nts DX HIP/PELVIS/SPINE Routine 12/22/2021 3:09 PM Aromatase inhib itor Results for this W LAT FRACTION MACHINE SHOP LEAD MAN use procedure are in ANALYSIS the results section. documented in this encounter Results DX Hip/Pelvis/Spine w Lat Fraction Anna (12/22/2021 3:09 PM MACHINE SHOP LEAD MAN) Anatomical Region Laterality Modality Dexa Bone Mineral Density Specimen (Source) Anatomical Location Collection Method / Collectio n Time Received Time / Laterality Volume Narrative 12/23/2021 12:03 PM MACHINE SHOP LEAD MAN BONE DENSITOMETRY [address] [address] 12/22/2021 ?? PATIENT: Darshana Brooks CHART: [id number] : ??1945 AGE: ??76 year old SEX: ??female REFERRING PROVIDER: ??Aaron Garcia MD ?? PROCEDURE: ??Bone density scanning was p erformed using DXA technology of the lumbar spine and hip. ??Scanning was performed on a [employer] scanner. ??Reporting is completed in the form [...] another DXA perfor med on the same [employer] ?? machine on 02/28/2018. ?? LATERAL VERTEBRAL ASSESSMENT Procedure: ??Vertebral fracture assessme nt was performed in the lateral decubitus position using a [employer] ??densitometer. Indications for VFA: T-score of -1.0 or worse and age (female>69) Confounding factors for VFA: None. ??The LVA scan is interpretable from T8 to L4. VFA Findings: Using the semi-quantitativ e analysis of Genant there was evidence of no spinal deformity [...] documented in this encounter Visit Diagnoses Diagnosis Aromatase inhibitor use Use of aromatase inhibitors documented in this encounter Additional Health Concerns Infection Onset Date Last Indicated Resolved Time 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, 01/08/2017 9 06/08/17, 08/26/17 documented as of this encounter Care Teams Resource Specialist Teacher Relationship Specialty Start Date End Date Chan Duke MD PCP - General Internal Medicine 08/21/[address] [place] [place], [place] [address] Jordin Allred, Assigned Musculoskeletal 03/02/21 DPM Provider [address] [facility] [address] [place], [place] [phone] Chan Duke MD Assigned PCP 08/24/21 [address] [place] [place] [phone] Aaron Garcia Assigned Cancer Care 10/12/21 05/15/22 MD Max Provider [address] [place] [address] documented as of this encounter
--- OUTSIDE RECORDS SUMMARY | 2022-08-20 14:22 | XMS_ITS | Encounter Summary ---
:1945 Author Organization [place] Address [address] [facility] [place] [address] Care Team Providers Name Role Phone Jordin Allred Amari DPJanelle Unavailable Chan Duke MD Primary Care Provider Chan Duke MD Unavailable Aaron Garcia MD Unavailable Reason for Visit Diagnostic Imaging Mammo (Routine) - Pending Review Specialty Diagnoses / Procedures Referred By Contact Refer red To Contact Diagnoses Visit for screening mammogram Aaron Garcia MD Procedures MA Screen Bilateral w/Ricardo [address] [place], [place] [address] Referral ID Status Reason Start Date Expiration Date Visits V isits Requested Authorized [id number] Pending 03/30/2022 03/30/2023 1 1 Review Encounter Details Date Type Department Care Team Description 04/17/2022 Ancillary Procedure [facility] Aaron Garcia it for screening Clinic Drumore MD Max mammogram [address] [facility] [address] [facility] [address] [place], [place] [phone] [address] Social History Tobacco Use Types Packs/Day Years [...] in contact with No / Unsu re 04/17/2022 10:39 AM CDT someone who was confirmed or suspected to have Coronavirus/COVID-19? documented as of this encounter Plan of Treatment Upcoming Encounters Date Type Specialty Care Team Description 10/26/2022 Lab Oncology Yris Perez MD [address] [address] (Wo rk) 11/03/2022 Oncology Visit Oncology Yris Perez MD [address] [address] (Wo rk) documented as of this encounter Procedures Procedure Name Priority Date/Time Associated Diagnosis Comme nts MA SCREENING Routine 04/17/2022 10:50 AM Visit for screening R esults for this BILATERAL W/ RICARDO CDT mammogram procedure are in the results section. documented in this encounter Results MA Screen Bilateral w/Ricardo (04/17/2022 10:50 AM CDT) Anatomical Region Laterality Modality Breast Bilateral Mammography Specimen (Source) Anatomical Location Collection Method / Collectio n Time Received Time / Laterality Volume Narrative 04/17/2022 2:32 PM CDT BILATERAL FULL FIELD DIGITAL SCREENING MAMMOGRAM WITH TOMOSYNTHESIS Performed on: 04/17/22 Compared to: 03/24/2021, 01/30/2019, , and 01/13/2017 Technique: ??This study was evaluated wi th the assistance of Computer-Aided Detection. ??Breast Tomosynthesis was us ed in interpretation. Findings: The breasts are heterogeneousl y dense, which may obscure small masses. ??There are post-surgical change s in the right breast. There is no radiographic evidence of mal ignancy. IMPRESSION: ACR BI-RADS Category 2: Harlan gunderson RECOMMENDED FOLLOW-UP: Annual routine sc reening mammogram The results and recommendations of this examination will be communicated to the patient. Aaron Garcia MD IMG MAMMOGRAPHY ORDERABLES documented in this encounter Visit Diagnoses Diagnosis Visit for screening mammogram Other screening mammogram documented in this encounter Additional Health Concerns Infection Onset Date Last Indicated Resolved Time 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, 01/08/2017 9 06/08/17, 08/26/17 documented as of this encounter Care Teams Construction Materials Tester Relationship Specialty Start Date End Date Chan Duke MD PCP - General Internal Medicine 08/21/21 [address] [place] [address] Jordin Allred, Assigned Musculoskeletal 03/02/21 DPM Provider [address] [facility] [address] [place] [address] Chan Duke MD Assigned PCP 08/24/21 [address] [place] [address] Aaron Garcia Assigned Cancer Care 10/12/21 05/15/22 MD Max Provider [address] [place] [address] documented as of this encounter
--- OUTSIDE RECORDS SUMMARY | 2022-08-20 14:22 | XMS_ITS | Encounter Summary ---
:1945 Author Organization [place] Address [address] [facility] [place] [address] Care Team Providers Name Role Phone Jordin Allred Amari JORDAN Unavailable Chan Duke MD Primary Care Provider Chan Duke MD Unavailable Aaron Garcia MD Unavailable Yris Perez MD Unavailable [phone] Encounter Details Date Type Department Care Team Description 04/24/2022 Telephone [facility] Cancer Aaron Garcia MD [place] [address] [facility] [address] [place] [address] [facility] Medical [place] [address] Social History Tobacco Use Types Packs/Day Years [...] have Coronavirus/COVID-19? documented as of this encounter Miscellaneous Notes Telephone Encounter - Mary Jane Pruitt - 04/24/2022 1:37 PM CDT Patient called to cancel appointment with Dr Garcia on 05/08/22. Patient states she will continue withDr Simon at the [place] location which is closer to her home. documented in this encounter Plan of Treatment Upcoming Encounters Date Type Specialty Care Team Description 10/26/2022 Lab Oncology Yris Perez MD [address] [address] (Wo rk) 11/03/2022 Oncology Visit Oncology Yris Perez MD [address] [address] (Wo rk) documented as of this encounter Visit Diagnoses Not on filedocumented in this encounter Additional Health Concerns Infection Onset Date Last Indicated Resolved Time 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, 01/08/2017 9 06/08/17, 08/26/17 documented as of this encounter Care Teams Website Project Manager Relationship Specialty Start Date End Date Chan Duke MD PCP - General Internal Medicine 08/21/21 [address] [place], [place] [address] Jordin Allred, Assigned Musculoskeletal 03/02/21 DPM Provider [address] [facility] [address] [place], [place] [address] Chan Duke MD Assigned PCP 08/24/21 [address] [place], [place] [address] Aaron Garcia Assigned Cancer Care 10/12/21 05/15/22 MD Max Provider [address] [place] [id number] Yris Perez Assigned Cancer Care 05/16/22 MD Ingrid Provider 420 [facility] [address] [place] [address] documented as of this encounter
--- OUTSIDE RECORDS SUMMARY | 2022-08-20 14:22 | XMS_ITS | Encounter Summary ---
:1945 Author Organization [place] Address [facility] [address] Care Team Providers Name Role Phone Jordin Allred Renata JORDAN Unavailable Chan Duke MD Primary Care Provider Chan Duke MD Unavailable Aaron Garcia MD Unavailable Reason for Referral Diagnostic Imaging XR (Routine) - Pending Review Specialty Diagnoses / Procedures Referred By Contact Refer red To Contact Diagnoses Malignant neoplasm of upper-inner quadrant of right breast in female, estrogen receptor positive (H) Aaron Garcia MD Procedures XR Femur Right 2 Views [address] [place], [place] [address] Referral ID Status Reason Start Date Expiration Date Visits V isits Requested Authorized [id number] Pending 10/06/2021 10/06/2022 1 1 Review ENTATION MANAGER Reason for Visit Diagnostic Imaging XR (Routine) - Pending Review Specialty Diagnoses / Procedures Referred By Contact Refer red To Contact Diagnoses Malignant neoplasm of upper-inner quadrant of right breast in female, estrogen receptor positive (H) Aaron Garcia MD Procedures XR Femur Right 2 Views [address] [place], [place] [address] Referral ID Status Reason Start Date Expiration Date Visits V isits Requested Authorized [id number] Pending 10/06/2021 10/06/2022 1 1 Review Encounter Details Date Type Department Care Team Description 10/15/2021 Hospital Encounter [facility] Aaron Garcia gnant neoplasm [facility] MD Max of [address] quadrant of right [address] breast in female, [place], [place] estrogen r eceptor [phone] positive (H) [phone] Social History Tobacco Use Types Packs/Day Years [...] with No / Unsure 10/15/2021 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 documented as of this encounter Medications at [...] 10 mg by 0 MG tablet mouth anastrozole (ARIMIDEX) 1 Take 1 tablet (1 90 tablet 3 10/0608/14/2022 MG tabletIndications: mg) by mouth Malignant neoplasm of daily upper-inner quadrant of right breast in female, estrogen receptor positive (H) Multiple Vitamins-Minerals 0 08/14/2022 (ZINC PO) documented as of this encounter Plan of Treatment Upcoming Encounters Date Type Specialty Care Team Description 10/26/2022 Lab Oncology Yris Perez MD [address] [address] (Wo rk) 11/03/2022 Oncology Visit Oncology Yris Perez MD [address] [address] (Wo rk) documented as of this encounter Procedures Procedure Name Priority Date/Time Associated Diagnosis Comme nts XR FEMUR RIGHT 2 Routine 10/15/2021 1:09 PM Malignant neoplasm Results for this VIEWS FERMENTATION MANAGER of upper-inner procedure are in quadrant of right the result s breast in female, section. estrogen receptor positive (H) documented in this encounter Results XR Femur Right 2 Views (10/15/2021 1:09 PM FERMENTATION MANAGER) Anatomical Region Laterality Modality Hip, Thigh, Knee Right Radio Fluoroscopy Specimen (Source) Anatomical Location Collection Method / Collectio n Time Received Time / Laterality Volume Impressions 10/15/2021 7:04 PM FERMENTATION MANAGER IMPRESSION: No fracture or destructive bone lesion. RENATA JAIN MD SYSTEM ID: ??[id number] Narrative 10/15/2021 7:04 PM FERMENTATION MANAGER RIGHT FEMUR TWO VIEWS ? 10/15/2021 1:09 PM HISTORY: ??Pain. Breast cancer. FINDINGS: Unremarkable appearance of rig ht hip arthroplasty. Procedure Note Renata Jain MD - 10/15/2021Formatting o f this note might be different from the original. RIGHT FEMUR TWO VIEWS 10/15/2021 1:09 PM HISTORY: Pain. Breast cancer. FINDINGS: Unremarkable appearance of rig ht hip arthroplasty. IMPRESSION: No fracture or destructive b one lesion. RENATA JAIN MD SYSTEM ID: [email or web address] Aaron Garcia MD IMG DIAGNOSTIC IMAGING ORDER [place] documented in this encounter Visit Diagnoses Diagnosis 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, estrogen receptor positive (H) documented in this encounter Additional Health Concerns Infection Onset Date Last Indicated Resolved Time 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, 01/08/2017 9 06/08/17, 08/26/17 documented as of this encounter Care Teams Briefcase Sewer Relationship Specialty Start Date End Date Chan Duke MD PCP - General Internal Medicine 08/21/21 [address] [place] [address] Jordin Allred, Assigned Musculoskeletal 03/02/21 DPM Provider [address] [facility] [address] [place] [address] Chan Duke MD Assigned PCP 08/24/21 [address] [place] [address] Aaron Garcia Assigned Cancer Care 10/12/21 05/15/22 MD Max Provider [address] [place] [address] documented as of this encounter
--- OUTSIDE RECORDS SUMMARY | 2022-08-20 14:22 | XMS_ITS | Encounter Summary ---
:1945 Author Organization [place] Address [facility] [place] [address] Care Team Providers Name Role Phone Jordin Allred Amari JORDAN Unavailable Chan Duke MD Primary Care Provider Chan Duke MD Unavailable Aaron Garcia MD Unavailable Encounter Details Date Type Department Care Team Description 05/07/2022 Travel Social History Tobacco Use Types Packs/Day [...] in contact with No / Unsu re 05/07/2022 8:27 AM CDT someone who was confirmed or suspected to have Coronavirus/COVID-19? documented as of this encounter Plan of Treatment Upcoming Encounters Date Type Specialty Care Team Description 10/26/2022 Lab Oncology Yris Perez MD [address] [address] (Madeleine proctor) 11/03/2022 Oncology Visit Oncology Yris Perez MD [address] [address] (Madeleine proctor) documented as of this encounter Visit Diagnoses Not on filedocumented in this encounter Additional Health Concerns Infection Onset Date Last Indicated Resolved Time 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, 01/08/2017 9 06/08/17, 08/26/17 documented as of this encounter Care Teams Game Manager Relationship Specialty Start Date End Date Chan Duke MD PCP - General Internal Medicine 08/21/21 [address] [place] [address] Jordin Allred, Assigned Musculoskeletal 03/02/21 DPM Provider [address] [facility] [address] [place] [address] Chan Duke MD Assigned PCP 08/24/21 [address] [place] [address] Aaron Garcia Assigned Cancer Care 10/12/21 05/15/22 MD Max Provider 500 [place], [place] [address] documented as of this encounter
--- OUTSIDE RECORDS SUMMARY | 2022-08-20 14:22 | XMS_ITS | Encounter Summary ---
:1945 Author Organization [place] Address [address] [place] [address] Care Team Providers Name Role Phone Jordin Allred Amari JORDAN Unavailable Chan Duke MD Primary Care Provider Chan uDke MD Unavailable Aaron Garcia MD Unavailable Yris Perez MD Unavailable [phone] Reason for Visit Reason Comments Labs Only Encounter Details Date Type Department Care Team Description 05/07/2022 [facility] Yris Perez Malignant neoplasm of [place] Paulo [place] [address] [place] [address] [place] [address] right breast in female, [address] [facility] 286 estrogen receptor [facility] [place] [address] positive (H) [facility] [place] [address] Social History Tobacco Use Types [...] of this encounter Progress Notes Mary Ann Oneil CMA - 05/07/2022 9:00 AM CDT Sales Operations Director Note: Darshana Laian Brooks presents today for blood draw. Patient seen by provider today: Yes: Dr. Perez. Research Nurse present during visit today: Not Applicable. Concerns: No Concerns. Procedure: Labs drawn Post Assessment: Labs drawn without difficulty: Yes. Discharge Plan: Departure Mode: Ambulatory. Face to Face Time: 10 min. Mary Ann Oneil CMA documented in this encounter Plan of Treatment Upcoming Encounters Date Type Specialty Care Team Description 10/26/2022 Lab Oncology Yris Perez MD [address] [place] [id number] (Wo rk) 11/03/2022 Oncology Visit Oncology Yris Perez MD [address] [address] (Wo rk) documented as of this encounter Procedures Procedure Name Priority Date/Time Associated Comments Diagnosis CANCER ANTIGEN 15-3 Routine 05/07/2022 9:14 AM Malignant neopl asm Results for this CDT of upper-inner procedure are in quadrant of right the result s breast in female, section. estrogen receptor positive (H) COMPREHENSIVE Routine 05/07/2022 9:14 AM Malignant neoplasm Re sults for this METABOLIC PANEL CDT of upper-inner procedure are in quadrant of right the result s breast in female, section. estrogen receptor positive (H) CBC WITH PLATELETS Routine 05/07/2022 9:14 AM Malignant neopla sm Results for this CDT of upper-inner procedure are in quadrant of right the result s breast in female, section. estrogen receptor positive (H) documented in this encounter Results (ABNORMAL) Cancer Antigen 15-3 (05/07/2022 9:14 AM CDT) athologist Signature Cancer Antigen 29 (H) <=25 U/mL 05/07/2022 [facility] 15-3 1:56 PM CDT Comment: This result is obtained using harish Magdalena Elecsys CA 15-3 II method on [...] City/State/ZIP Code Phon e Number [facility] [place] [address] Lab [address] [facility] [address] Building, Room 3-580 (ABNORMAL) Comprehensive metabolic panel (BMP + Alb, Alk Phos, ALT, AST, Total. Bili, TP) (05/07/2022 9:14 AM CDT) [facility] Method Time Signature Sodium 138 133 - 144 05/07/2022 LABORATORY mmol/L 9:55 AM CDT Potassium 4.1 3.4 - 5.3 05/07/2022 LABORATORY mmol/L 9:55 AM CDT Chloride 106 94 - 109 05/07/2022 LABORATORY mmol/L 9:55 AM CDT Carbon Dioxide 29 20 - 32 05/07/2022 LABORATORY (CO2) mmol/L 9:55 AM CDT Anion Gap 3 3 - 14 05/07/2022 LABORATORY mmol/L 9:55 AM CDT Urea Nitrogen 16 7 - 30 05/07/2022 LABORATORY mg/dL 9:55 AM CDT Creatinine 0.92 0.52 - 05/07/2022 LABORATORY 1.04 mg/dL 9:55 AM CDT Calcium 9.1 8.5 - 10.1 05/07/2022 LABORATORY mg/dL 9:55 AM CDT Glucose 105 (H) 70 - 99 05/07/2022 LABORATORY mg/dL 9:55 AM CDT Alkaline 85 40 - 150 05/07/2022 LABORATORY Phosphatase U/L 9:55 AM CDT AST 25 0 - 45 U/L 05/07/2022 LABORATORY 9:55 AM CDT ALT 53 (H) [...] es age and gender (Ji et al., NEJM, DOI: 10.1056/QUIUet2774904) Specimen Anatomical Collection Method / Collection Time Recei caitlin Time (Source) Location / Volume Laterality Blood STRUCTURE OF LEFT Venipuncture / 05/07/2022 9:14 05/07 9:33 UPPER LIMB / Unknown AM CDT AM CDT Unknown [facility] Ingrid Perez MD LAB - BLOOD ORDERABLES Performing Organization Address City/State/ZIP Code [place] [address] Care Lab [address] Lab (1st floor, no room number) [...] / Unknown AM CDT AM CDT Unknown [facility] Ingrid Perez MD LAB - BLOOD ORDERABLES Performing Organization Address City/State/ZIP Code Ph[place] [address] Care Lab [address] Lab (1st floor, no room number) documented in this encounter Visit Diagnoses Diagnosis 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, estrogen receptor positive (H) documented in this encounter Additional Health Concerns Infection Onset Date Last Indicated Resolved Time 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, 01/08/2017 9 06/08/17, 08/26/17 documented as of this encounter Care Teams Hogshead Filler Relationship Specialty Start Date End Date Chan Duke MD PCP - General Internal Medicine 08/21/21 [address] [place] [address] Jordin Allred, Assigned Musculoskeletal 03/02/21 DPM Provider [address] [facility] [address] [place], [place] [address] Chan Duke MD Assigned PCP 08/24/21 [address] [place] [address] Aaron Garcia Assigned Cancer Care 10/12/21 05/15/22 MD Max Provider 500 [place] [address] Yris Perez Assigned Cancer Care 05/16/22 MD Ingrid Provider 420 [facility] [address] [place] [address] documented as of this encounter
--- OUTSIDE RECORDS SUMMARY | 2022-08-20 14:22 | XMS_ITS | Encounter Summary ---
:1945 Author Organization [place] Address [address] [facility] 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 documented as of this encounter Plan of Treatment Upcoming Encounters Date Type Specialty Care Team Description 10/26/2022 Lab Oncology Yris Perez MD 420 [facility] [address] [place] [address] (Wo rk) 11/03/2022 Oncology Visit Oncology Yris Perez MD 420 [facility] [address] [place], [place] [address] (Wo rk) documented as of this encounter Visit Diagnoses Not on filedocumented in this encounter Additional Health Concerns Infection Onset Date Last Indicated Resolved Time 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, 01/08/2017 9 06/08/17, 08/26/17 documented as of this encounter Care Teams Blue Line Trimmer Relationship Specialty Start Date End Date Chan Duke MD PCP - General Internal Medicine 08/21/[address] [place], [place] [address] Jordin Allred, Assigned Musculoskeletal 03/02/21 DPM Provider [address] [facility] [address] [place] [address] Chan Duke MD Assigned PCP 08/24/21 [address] [place], [place] [address] Aaron Garcia Assigned Cancer Care 10/12/21 05/15/22 MD Max Provider [address] [place], [place] [address] documented as of this encounter
--- OUTSIDE RECORDS SUMMARY | 2022-08-20 14:22 | XMS_ITS | Encounter Summary ---
:1945 Author Organization [place] Address [facility] [place] [address] Care Team Providers Name Role Phone Jordin Allred Amari JORDAN Unavailable Chan Duke MD Primary Care Provider Chan Duke MD Unavailable Aaron Garcia MD Unavailable Encounter Details Date Type Department Care Team Description 04/17/2022 Travel Social History Tobacco Use Types Packs/Day [...] 10/26/2022 Lab Oncology Yris Perez MD [address] [address] (Madeleine proctor) 11/03/2022 Oncology Visit Oncology Yris Perez MD [address] [address] (Madeleine proctor) documented as of this encounter Visit Diagnoses Not on filedocumented in this encounter Additional Health Concerns Infection Onset Date Last Indicated Resolved Time 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, 01/08/2017 9 06/08/17, 08/26/17 documented as of this encounter Care Teams Compressed Gas Tester Relationship Specialty Start Date End Date Chan Duke MD PCP - General Internal Medicine 08/21/21 [address] [place] [address] Jordin Allred, Assigned Musculoskeletal 03/02/21 DPM Provider [address] [facility] [address] [place] [address] Chan Duke MD Assigned PCP 08/24/21 [address] [place] [address] Aaron Garcia Assigned Cancer Care 10/12/21 05/15/22 MD Max Provider [address] [place], [place] [address] documented as of this encounter
--- OUTSIDE RECORDS SUMMARY | 2022-08-20 14:22 | XMS_ITS | Encounter Summary ---
:1945 Author Organization [place] Address [facility] [place] [address] Care Team Providers Name Role Phone Jordin Allred Amari JORDAN Unavailable Chan Duke MD Primary Care Provider Chan Duke MD Unavailable Aaron Garcia MD Unavailable Reason for Referral Diagnostic Imaging NM (Routine) - Closed Specialty Diagnoses / Procedures Referred By Contact Refer red To Contact Diagnoses Malignant neoplasm of upper-inner quadrant of right breast in female, estrogen receptor positive (H) Yris Perez, Procedures NM Bone Scan Whole Body [address] [place] [address] 5545 5 Referral ID Status Reason Start Date Expiration Date Visits Requ ested Visits Authorized [id number] Closed 05/07/2022 05/07/2023 2 2 Reason for Visit Diagnostic Imaging NM (Routine) - Closed Specialty Diagnoses / Procedures Referred By Contact Refer red To Contact Diagnoses Malignant neoplasm of upper-inner quadrant of right breast in female, estrogen receptor positive (H) Yris Perez, Procedures NM Bone Scan Whole Body [address] [address]45 5 Referral ID Status Reason Start Date Expiration Date Visits Requ ested Visits Authorized [id number] Closed 05/07/2022 05/07/2023 2 2 Encounter Details Date Type Department Care Team Description 05/12/2022 Hospital Encounter [facility] Yris Perez Janelle alignant neoplasm [facility] MD Ingrid [address] quadrant o f right [address] [facility] breast in female, [place], [place] estrogen r eceptor [phone] positive (H) [phone] Social History Tobacco Use Types Packs/Day Years [...] Acid (VITAMIN C 0 PO) calcium carbonate (OS-ROASLINO) Take 1 tablet by 0 500 MG [...] Lab Oncology Yris Perez MD [address] [id number] (Wo rk) 11/03/2022 Oncology Visit Oncology Yris Perez MD [address] [address] (Wo rk) documented as [...] Modality Whole Body, SUBRAD CT BODY, P NUC MED Nuclear Medicine Specimen (Source) Anatomical Location Collection Method / Collectio n Time Received Time / Laterality Volume Impressions 05/12/2022 1:37 PM CDT IMPRESSION: ?? 1. No evidence for osseous metastases. 2. Degenerative type activity in the cer vical and thoracic spine are new. 3. Uncomplicated right hip arthroplasty. MARCELO PH[facility]ENIX MD SYSTEM ID: ??[id number] Narrative 05/12/2022 1:37 PM CDT NM BONE [...] hip arthroplasty. MARCELO PH[place]ENIX MD SYSTEM ID: [id number] Yris Perez MD [facility] [place] ORDERABLES documented in this encounter Visit Diagnoses Diagnosis 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, estrogen receptor positive (H) documented in this encounter Administered Medications Inactive Administered Medications - up to 3 most recent administrations Medication Order MAR Action Action Date Dose Rate Site technetium Tc 99m Given 05/12/2022 8:55 AM 26.5 millicuries oxydronate (Tc99m HDP) CDT radioisotope injection 25 millicurie 25 millicurie, Intravenous, ONCE, On 05/12/22 at 0900, For 1 dose, Supplied by, and administered by Nuclear Medicine. *HW* documented in this encounter Additional Health Concerns Infection Onset Date Last Indicated Resolved Time 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, 01/08/2017 9 06/08/17, 08/26/17 documented as of this encounter Care Teams Dog Pound Attendant Relationship Specialty Start Date End Date Chan Duke MD PCP - General Internal Medicine 08/21/21 [address] [place] [id number] Jordin Allred, Assigned Musculoskeletal 03/02/21 DPM Provider [address] [facility] [address] [place] [address] Chan Duke MD Assigned PCP 08/24/21 [address] [place] [address] Aaron Garcia Assigned Cancer Care 10/12/21 05/15/22 MD Max Provider 500 [place], [place] [phone] documented as of this encounter
--- OUTSIDE RECORDS SUMMARY | 2022-08-20 14:22 | XMS_ITS | Encounter Summary ---
:1945 Author Organization [place] Address [address] [facility] [place] [address] Care Team Providers Name Role Phone Jordin Allred Amari JORDAN Unavailable Chan Duke MD Primary Care Provider Chan Duke MD Unavailable Aaron Garcia MD Unavailable Reason for Visit Reason Comments Physical Encounter Details Date Type Department Care Team Description 01/29/2022 Office Visit [facility] Natalia Whitley ter for Medicare Clinics - Sergio Ash MD annual wellness exam Value Based Care [address] [place] [address] (Primary Dx) [address] [place] [address] [address] [place] [phone] Social History Tobacco Use Types Packs/Day Years Used Date Passive Smoke Exposure - Never Smoker Smokeless Tobacco: Never Used Alcohol Use Standard Drinks/Week Comments No 0 (1 standard drink = 0.6 oz pure alcoho l) Sex Assigned at Date Recorded Female 01/27/2022 12:36 PM CDT COVID-19 Exposure Response Date Recorded In the last month, have you been in contact with No / Unsure 01/29/2022 1:03 PM CDT someone who was confirmed or suspected to have Coronavirus / COVID-19? documented as of this encounter Last Filed Vital Signs Vital Sign Reading Time Taken Comments Blood Pressure 132/72 01/29/2022 1:14 PM CDT Pulse 72 01/29/2022 1:14 PM CDT Temperature 36.9 ??C (98.5 ??F) 01/29/2022 1:14 PM CDT Respiratory Rate 18 01/29/2022 1:14 PM CDT Oxygen Saturation 96% 01/29/2022 1:14 PM CDT Inhaled Oxygen Concentration - - Weight 66.7 kg (147 lb) 01/29/2022 1:14 PM CDT self rep orted Height 167.6 cm (5' 6) 01/29/2022 1:14 PM CDT Body Mass Index 23.73 01/29/2022 1:14 PM CDT documented in this encounter Patient Instructions Patient InstructionsPaula Guardado RN - 01/29/2022 12:45 PM CDT Patient Education Personalized Prevention Plan You are due for the preventive services outlined below. Your care team is available to assist you inscheduling these services. If you have already completed any of these items, please share that information with your care team to update in your medical record. Health Maintenance Due Topic Date Due ??? ANNUAL REVIEW OF HM ORDERS Never done ??? COPD Action Plan Never done ??? Hepatitis C Screening Never done ??? COVID-19 Vaccine (2 - Booster for Juliette series) 03/21/2021 ??? Flu Vaccine (1) 07/16/2021 documented in this encounter Progress Notes Paula Guardado RN - 01/29/2022 12:45 PM CDT Assessment & Plan ICD-10-CM 1. Encounter for Medicare annual wellness exam Z00.00 Follow Up/Next Steps Return in about 53 weeks (around 02/04/2023) for Annual Wellness Visit. Recommended that patient follow up with PCP for care of chronic condtions and regular maintenance. Counseling and Education Reviewed preventive health counseling, as reflected in patient instructions Appropriate preventive services were discussed with this patient, including applicable screening as appropriate for cardiovascular disease, diabetes, osteopenia/osteoporosis, and glaucoma. As appropriate for age/gender, discussed screening for colorectal cancer, prostate cancer, breast cancer, and cervical cancer. Checklist reviewing preventive services available has been given to the patient. Reviewed patients plan of care and provided an AVS. The Basic Care Plan (routine screening as documented in Health Maintenance) for Darshana meets the Care Plan requirement. This Care Plan has been established and reviewed with the Patient. Visit Provider: Paula Guardado, ODESSA Supervising Provider: Natalia Whitley MD, [facility] Darshana is a 76 year old who is being seen for an Annual Wellness Visit in her home. Healthy Habits: In general, how would you rate your overall health? Good Frequency of exercise: 2-3 days/week Duration of exercise: Less than 15 minutes Do you usually eat at least 4 servings of fruit and vegetables a day, include whole grains & fiber and avoid regularly eating high fat or junk foods? Yes Taking medications regularly: Yes Ability to successfully perform activities of daily living: No assistance needed Home Safety: Lack of grab bars in the bathroom Hearing Impairment: Need to ask people to speak up or repeat themselves In the past 6 months, have you been bothered by leaking of urine? No In general, how would you rate your overall mental or emotional health? Good PHQ-2 Total Score: 0 Additional concerns today: Yes Do you feel safe in your environment? Yes Have you ever done Advance Care Planning? (For example, a Health Directive, POLST, or a discussion with a medical provider or your loved ones about your wishes): Yes, advance care planning is on file. Fall risk Fallen 2 or more times in the past year?: No Any fall with injury in the past year?: No Cognitive Screening 1) Repeat 3 items (Leader, Season, Table) 2) Clock draw: NORMAL 3) 3 item recall: Recalls 3 objects Results: 3 items recalled: COGNITIVE IMPAIRMENT LESS LIKELY Mini-CogTM Copyright [employer]. Licensed by the author for use in [facility]; reprintedwith permission (soob@.[facility]). All rights reserved. Do you have sleep apnea, excessive snoring or daytime drowsiness?: no Reviewed and updated as needed this visit by clinical staff Allergies Meds Med Hx Surg Hx Fam Hx Social History Tobacco Use ??? Smoking status: Passive Smoke Exposure - Never Smoker ??? Smokeless tobacco: Never Used Substance Use Topics ??? Alcohol use: No Alcohol/week: 0.0 standard drinks Current providers sharing in care for this patient include: Patient Care Team: Chan Duke MD as PCP - General (Internal Medicine) Jordin Allred DPM as Assigned Musculoskeletal Provider Chan Duke MD as Assigned PCP Aaron Garcia MD as Assigned Cancer Care Provider The following health maintenance items are reviewed in [facility] and correct as of today: Health Maintenance Due Topic Date Due ??? ANNUAL REVIEW OF HM ORDERS Never done ??? COPD ACTION PLAN Never done ??? HEPATITIS C SCREENING Never done ??? COVID-19 Vaccine (2 - Booster for Juliette series) 03/21/2021 ??? MEDICARE ANNUAL WELLNESS VISIT 05/29/2021 ??? INFLUENZA VACCINE (1) 07/16/2021 Objective BP 132/72 (BP Location: Left arm, Patient Position: Sitting) Pulse 72 Temp 98.5 ??F (36.9 ??C) (Temporal) Resp 18 Ht 1.676 m (5' 6) Wt 66.7 kg (147 lb) SpO2 96% BMI 23.73 kg/m?? Estimated body mass index is 23.73 kg/m?? as calculated from the following: Height as of this encounter: 1.676 m (5' 6). Weight as of this encounter: 66.7 kg (147 lb). Physical Exam Patient appears comfortable and in no acute distress. Identified Health Risks: documented in this encounter Plan of Treatment Upcoming Encounters Date Type Specialty Care Team Description 10/26/2022 Lab Oncology Yris Perez MD [address] [address] (Madeleine proctor) 11/03/2022 Oncology Visit Oncology Yris Perez MD [address] [phone] (Wo hitesh) documented as of this encounter Visit Diagnoses Diagnosis Encounter for Medicare annual wellness e xam - Primary Routine general medical examination at a health care facility documented in this encounter Additional Health Concerns Infection Onset Date Last Indicated Resolved Time 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, 01/08/2017 9 06/08/17, 08/26/17 documented as of this encounter Care Teams Nutritionist Relationship Specialty Start Date End Date Chan Duke MD PCP - General Internal Medicine 08/21/21 [address] [place], [place] [address] Jordin Allred, Assigned Musculoskeletal 03/02/21 DPM Provider [address] [facility] [address] [place] [address] Chan Duke MD Assigned PCP 08/24/21 [address] [place] [address] Aaron Garcia Assigned Cancer Care 10/12/21 05/15/22 MD Max Provider 500 [place] [address] documented as of this encounter
--- OUTSIDE RECORDS SUMMARY | 2022-08-20 14:22 | XMS_ITS | Encounter Summary ---
:1945 Author Organization [place] Address [address] [facility] [place] [address] Care Team Providers Name Role Phone Jordin Allred Amari JORDAN Unavailable Chan Duke MD Primary Care Provider Chan Duke MD Unavailable Aaron Garcia MD Unavailable Encounter Details Date Type Department Care Team Description 05/14/2022 Orders Only [facility] Yris Perez Maligncy nt neoplasm of Cancer Center MD Ingrid upper-inner quadrant [place] [address] [place] [address] [facility] female, estrogen 200 [place], [place] receptor positive (H) [facility] [address] (Primary Dx) [facility] [place] [address] Social History Tobacco Use Types [...] Specialty Care Team Description 10/26/2022 Lab Oncology Yrsi Perez MD 420 [facility] [address] [place], [place] [phone] (Wo rk) 11/03/2022 Oncology Visit Oncology Yris Perez MD 420 [facility] [address] [place], [place] [address] (Wo rk) documented as of this encounter Results (ABNORMAL) Cancer Antigen 15-3 (05/21/2022 3:13 PM CDT) P athologist Signature Cancer Antigen 30 (H) <=25 U/mL 05/21/2022 [facility] 15-3 8:27 PM CDT Comment: This result is obtained using t he Akella Elecsys CA 15-3 II method on the [...] City/State/ZIP Code Phon e Number [facility] [address] Lab [address] [facility] [address] Building, Room 3-580 documented in this encounter Visit Diagnoses Diagnosis 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, estrogen receptor positive (H) - Primary documented in this encounter Additional Health Concerns Infection Onset Date Last Indicated Resolved Time 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, 01/08/2017 9 06/08/17, 08/26/17 documented as of this encounter Care Teams Surgical Oncologist Relationship Specialty Start Date End Date Chan Duke MD PCP - General Internal Medicine 08/21/21 [address] [place] [address] Jordin Allred, Assigned Musculoskeletal 03/02/21 DPM Provider [address] [facility] [address] [place] [address] Chan Duke MD Assigned PCP 08/24/21 [address] [place] [address] Aaron Garcia Assigned Cancer Care 10/12/21 05/15/22 MD Max Provider 500 [place] [address] documented as of this encounter
--- OUTSIDE RECORDS SUMMARY | 2022-08-20 14:22 | XMS_ITS | Encounter Summary ---
:1945 Author Organization [place] Address [facility] [place] [address] Care Team Providers Name Role Phone Jordin Allred Amari JORDAN Unavailable Chan Duke MD Primary Care Provider Chan Duke MD Unavailable Aaron Garcia MD Unavailable Encounter Details Date Type Department Care Team Description 01/29/2022 Travel Social History Tobacco Use Types Packs/Day [...] 10/26/2022 Lab Oncology Yris Perez MD [address] [address] (Wo hitesh) 11/03/2022 Oncology Visit Oncology Yris Perez MD 420 [facility] [address] [place] [address] (Wo rk) documented as of this encounter Visit Diagnoses Not on filedocumented in this encounter Additional Health Concerns Infection Onset Date Last Indicated Resolved Time 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, 01/08/2017 9 06/08/17, 08/26/17 documented as of this encounter Care Teams Data Engineer Relationship Specialty Start Date End Date Chan Duke MD PCP - General Internal Medicine 08/21/21 [address] [place] [phone] Jordin Allred, Assigned Musculoskeletal 03/02/21 DPM Provider [address] [facility] [address] [place] [address] Chan Duke MD Assigned PCP 08/24/21 [address] [place] [address] Aaron Garcia Assigned Cancer Care 10/12/21 05/15/22 MD Max Provider 500 [place], [place] [phone] documented as of this encounter
--- OUTSIDE RECORDS SUMMARY | 2022-08-20 14:22 | XMS_ITS | Encounter Summary ---
:1945 Author Organization [place] Address [facility] [place] [address] Care Team Providers Name Role Phone Jordin Allred Amari JORDAN Unavailable Chan Duke MD Primary Care Provider Chan Duke MD Unavailable Aaron Garcia MD Unavailable Encounter Details Date Type Department Care Team Description 05/11/2022 Travel Social History Tobacco Use Types Packs/Day [...] in contact with No / Unsu re 05/11/2022 12:59 PM CDT someone who was confirmed or suspected to have Coronavirus/COVID-19? documented as of this encounter Plan of Treatment Upcoming Encounters Date Type Specialty Care Team Description 10/26/2022 Lab Oncology Yris Perez MD [address] [address] (Madeleine proctor) 11/03/2022 Oncology Visit Oncology Yris Perez MD [address] [address] (Madeleine proctor) documented as of this encounter Visit Diagnoses Not on filedocumented in this encounter Additional Health Concerns Infection Onset Date Last Indicated Resolved Time 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, 01/08/2017 9 06/08/17, 08/26/17 documented as of this encounter Care Teams Milk Powder Grinder Relationship Specialty Start Date End Date Chan Duke MD PCP - General Internal Medicine 08/21/21 [address] [place] [phone] Jordin Allred, Assigned Musculoskeletal 03/02/21 DPM Provider [address] [facility] [address] [place] [address] Chan Duke MD Assigned PCP 08/24/21 [address] [place] [address] Aaron Garcia Assigned Cancer Care 10/12/21 05/15/22 MD Max Provider 500 [place], [place] [phone] documented as of this encounter
--- OUTSIDE RECORDS SUMMARY | 2022-08-20 14:22 | XMS_ITS | Encounter Summary ---
:1945 Author Organization [place] Address [facility] 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 documented as of this encounter Plan of Treatment Upcoming Encounters Date Type Specialty Care Team Description 10/26/2022 Lab Oncology Yris Perez MD [address] [address] (Madeleine proctor) 11/03/2022 Oncology Visit Oncology Yris Perez MD 420 [facility] [address] [place] [address] (Wo hitesh) documented as of this encounter Visit Diagnoses Not on filedocumented in this encounter Additional Health Concerns Infection Onset Date Last Indicated Resolved Time 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, 01/08/2017 9 06/08/17, 08/26/17 documented as of this encounter Care Teams Tugger Operator Relationship Specialty Start Date End Date Chan Duke MD PCP - General Internal Medicine 08/21/21 [address] [place] [address] Jordin Allred, Assigned Musculoskeletal 03/02/21 DPM Provider [address] [facility] [address] [place] [address] Chan Duke MD Assigned PCP 08/24/21 [address] [place] [address] Aaron Garcia Assigned Cancer Care 10/12/21 05/15/22 MD Max Provider [address] [place], [place] [phone] documented as of this encounter
--- OUTSIDE RECORDS SUMMARY | 2022-08-20 14:22 | XMS_ITS | Encounter Summary ---
:1945 Author Organization [place] Address [facility] [address] Care Team Providers Name Role Phone Jordin Allred Amari JORDAN Unavailable Chan Duke MD Primary Care Provider Chan Duke MD Unavailable Aaron Garcia MD Unavailable Encounter Details Date Type Department Care Team Description 05/12/2022 Travel Social History Tobacco Use Types Packs/Day [...] 10/26/2022 Lab Oncology Yris Perez MD [address] [address] (Madeleine proctor) 11/03/2022 Oncology Visit Oncology Yris Perez MD [address] [address] (Madeleine proctor) documented as of this encounter Visit Diagnoses Not on filedocumented in this encounter Additional Health Concerns Infection Onset Date Last Indicated Resolved Time 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, 01/08/2017 9 06/08/17, 08/26/17 documented as of this encounter Care Teams Inter Com Servicer Relationship Specialty Start Date End Date Chan Duke MD PCP - General Internal Medicine 08/21/21 [address] [place] [address] Jordin Allred, Assigned Musculoskeletal 03/02/21 DPM Provider [address] [facility] [address] [place] [address] Chan Duke MD Assigned PCP 08/24/21 [address] [place] [address] Aaron Garcia Assigned Cancer Care 10/12/21 05/15/22 MD Max Provider 500 [place], [place] [phone] documented as of this encounter
--- OUTSIDE RECORDS SUMMARY | 2022-08-20 14:22 | XMS_ITS | Encounter Summary ---
:1945 Author Organization [place] Address [address] [facility] 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 documented as of this encounter Miscellaneous Notes Telephone Encounter - Shruthi Maddox RN - 10/08/2021 8:50 AM CST Called Darshana regarding Dr. Garcia needing a right femur bone X ray. Left message for Darshana to call clinic back to give her radiology scheduling number at [phone] to schedule the right femur X ray. Shruthi Maddox RN,BSN,OCN,CBCN GRAPH EQUIPMENT MAINTAINER documented in this encounter Plan of Treatment Upcoming Encounters Date Type Specialty Care Team Description 10/26/2022 Lab Oncology Yris Perez MD 420 [facility] [address] [place], [place] [address] (Wo rk) 11/03/2022 Oncology Visit Oncology Yris Perez MD 420 [facility] [address] [place], [place] [address] (Wo rk) documented as of this encounter Visit Diagnoses Not on filedocumented in this encounter Additional Health Concerns Infection Onset Date Last Indicated Resolved Time 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, 01/08/2017 9 06/08/17, 08/26/17 documented as of this encounter Care Teams Landscape Specialist Relationship Specialty Start Date End Date Chan Duke MD PCP - General Internal Medicine 08/21/21 [address] [place], [place] [phone] Jordin Allred, Assigned Musculoskeletal 03/02/21 DPM Provider [address] [facility] [address] [place], [place] [address] Chan Duke MD Assigned PCP 08/24/[address] [place], [place] [address] documented as of this encounter
--- OUTSIDE RECORDS SUMMARY | 2022-08-20 14:23 | XMS_ITS | Encounter Summary ---
:1945 Author Organization [place] Address [facility] [place] [address] Care Team Providers Name Role Phone Simon Claros MD Primary Care Provider Jordin Allred DPM Unavailable Simon Claros MD Unavailable Reason for Visit Reason Comments Toenail Encounter Details Date Type Department Care Team Description 04/30/2021 Office Visit [facility] Jordin Allred Sur gery follow-up [facility] [place] DPM examination (Primary Podiatry [id number] [place]) [address] [place] [address] [phone] (Wo rk) Social History Tobacco Use Types [...] been in contact with No / Unsure 04/30/2021 2:56 PM CDT someone who was confirmed or suspected to have Coronavirus / COVID-19? documented as of this encounter Last Filed Vital Signs Vital Sign Reading Time Taken Comments Blood Pressure 142/60 04/30/2021 3:03 PM CDT Pulse - - Temperature - - Respiratory Rate - - Oxygen Saturation - - Inhaled Oxygen Concentration - - Weight 69.4 kg (153 lb) 04/30/2021 3:03 PM CDT Height 167.6 cm (5' 6) 04/30/2021 3:03 PM CDT Body Mass Index 24.69 04/30/2021 3:03 PM CDT documented in this encounter Progress Notes Chalino, Jordin Fitzpatrick DPM - 04/30/2021 3:00 PM CDT ASSESSMENT: Encounter Diagnosis Name Primary? Surgery follow-up examination Yes MEDICAL DECISION MAKING: At this point she demonstrates a healed right hallux medial nail unit after partial chemical matrixectomy. The tissue she saw that was loose was likely secondary to tissue injury from the phenol. I explained that eventually the medial skin fold should contract up to meet the nail edge. The nail plate can look abnormal for months after this procedure. Using a small curette, I removed some periungual debris, exfoliating skin. No bleeding. No pain. Area was cleansed with alcohol wipe, bacitracin and Band-Aid applied. Follow-up on an as-needed basis. Disclaimer: This note consists of symbols derived from keyboarding, dictation and/or voice recognition software. As a result, there may be errors in the script that have gone undetected. Please consider this when interpreting information found in this chart. Jordin Allred DPM, FACFAS, [facility] Department of Podiatry/Foot & Ankle Surgery HPI: Chief Complaint: follow up to check progress after nail removal (partial chemical matrixectomy, medial edge, right hallux, 02/21/21) Previous ache No current pain She said she followed instructions, in terms of soaking and dressing the area. She noticed some tissue that was loose and became concerned. She didn't know if she should remove it. * Past Medical History: Diagnosis Date ??? Cancer (H) breast ??? Chronic infection multiple UTIs ??? COPD (chronic obstructive pulmonary disease) (H) * * Past Surgical History: Procedure Laterality Date ??? ARTHROPLASTY HIP ANTERIOR Right 03/10/2016 Procedure: ARTHROPLASTY HIP ANTERIOR; Surgeon: Wayne Estevez MD; Location: [facility] OR ??? BIOPSY NODE SENTINEL Right 02/08/2017 Procedure: BIOPSY NODE SENTINEL; Surgeon: Jordin Atkins MD; Location: [facility] SD ??? COLONOSCOPY N/A 06/03/2017 Procedure: COLONOSCOPY; COLONOSCOPY ; Surgeon: Alejo Aburto MD; Location: [facility] GI ??? CYSTOSCOPY N/A 12/09/2017 Procedure: CYSTOSCOPY; Video Cystoscopy Rigid and Flexible, right retrogrades, cystogram, vaginoscopy; Surgeon: Iggy Dodd MD; Location: [facility] OR ??? SKI MOLDER SURGERY hysterectomy ??? LUMPECTOMY BREAST WITH SEED LOCALIZATION Right 02/08/2017 Procedure: LUMPECTOMY BREAST WITH SEED LOCALIZATION; Surgeon: Jordin Atkins MD; Location: [facility] SD ??? ORTHOPEDIC SURGERY hip replacement * * Current Outpatient Medications Medication Sig Dispense Refill ??? albuterol (PROAIR HFA) 108 (90 Base) MCG/ACT inhaler INHALE 2 PUFFS 4 TIMES A DAY NEEDED 8.5 Inhaler 11 ??? allopurinol (ZYLOPRIM) 300 MG tablet Take 1 tablet (300 mg) by mouth daily 90 tablet 2 ??? ANASTROZOLE PO Take 1 mg by mouth daily ??? calcium carbonate (OS-ROSALINO) 500 MG tablet Take 1 tablet by mouth daily ??? Cholecalciferol (VITAMIN D3 PO) Take 2,000 Units by mouth daily ??? CRANBERRY PO Take by mouth daily ??? loratadine (CLARITIN) 10 MG tablet Take 10 mg by mouth ??? Multiple Vitamins-Minerals (ZINC PO) EXAM: Vitals: BP (!) 142/60 Ht 1.676 m (5' 6) Wt 69.4 kg (153 lb) BMI 24.69 kg/m?? BMI: Body mass index is 24.69 kg/m??. Constitutional: Darshana Brooks is in no apparent distress, appears well- nourished. Cooperative withhistory and physical exam. Vascular: Pedal pulses are palpable for both the DP and PT arteries. CFT < 3 sec. No edema. Neuro: Light touch sensation is intact to the L4, L5, S1 distributions No evidence of weakness, spasticity, or contracture in the lower extremities. Derm: The right hallux medial nail bed has healed. There was some dry, loose skin. This was removed with a curette. No pain. No edema. documented in this encounter Plan of Treatment Upcoming Encounters Date Type Specialty Care Team Description 10/26/2022 Lab Oncology Yris Perez MD [address] [id number] (Wo rk) 11/03/2022 Oncology Visit Oncology Yris Perez MD [address] [id number] (Wo rk) documented as of this encounter Visit Diagnoses Diagnosis Surgery follow-up examination - Primary Follow-up examination, following unspeci fied surgery documented in this encounter Additional Health Concerns Infection Onset Date Last Indicated Resolved Time 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, 01/08/2017 9 06/08/17, 08/26/17 documented as of this encounter Care Teams Claims Auditor Relationship Specialty Start Date End Date Simon Claros MD PCP - General Internal Medicine 09/22/12 08/20/21 Jordin Allred, Assigned Musculoskeletal 03/02/21 DPM Provider [address] [facility] [address] [place], [place] [id number] Simon Claros MD Assigned PCP 04/10/21 05/31/21 [address] [facility] [address] [place] [address] documented as of this encounter
--- OUTSIDE RECORDS SUMMARY | 2022-08-20 14:23 | XMS_ITS | Encounter Summary ---
:1945 Author Organization [place] Address [facility] [place] [address] Care Team Providers Name Role Phone Simon Claros MD Primary Care Provider ChalinoJordin Amari DPM Unavailable Chan Olivarez MD Unavailable Encounter Details Date Type Department Care Team Description 03/24/2021 Travel Social History Tobacco Use Types Packs/Day [...] been in contact with No / Unsure 03/24/2021 9:27 AM CDT someone who was confirmed or suspected to have Coronavirus / COVID-19? documented as of this encounter Plan of Treatment Upcoming Encounters Date Type Specialty Care Team Description 10/26/2022 Lab Oncology Yris Perez MD [address] [address] (Wo rk) 11/03/2022 Oncology Visit Oncology Yris Perez MD [address] [address] (Wo rk) documented as of this encounter Visit Diagnoses Not on filedocumented in this encounter Additional Health Concerns Infection Onset Date Last Indicated Resolved Time 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, 01/08/2017 9 06/08/17, 08/26/17 documented as of this encounter Care Teams Cath Lab Radiology Technician Relationship Specialty Start Date End Date Simon Claros MD PCP - General Internal Medicine 09/22/12 08/20/21 Jordin Allred, Assigned Musculoskeletal 03/02/[address] [facility] [address] [place] [address] Chan Olivarez MD Assigned PCP 03/02/21 04/09/[address] [place] [phone] documented as of this encounter
--- OUTSIDE RECORDS SUMMARY | 2022-08-20 14:23 | XMS_ITS | Encounter Summary ---
:1945 Author Organization [place] Address [address] [place] [address] Care Team Providers Name Role Phone Jordin Allred Amari DPM Unavailable Chan Duke MD Primary Care Provider Chan Duke MD Unavailable Reason for Visit Reason Comments Medication Refill Encounter Details Date Type Department Care Team Description 08/30/2021 Refill [facility] Simon Claros MD Medication Refill [place] [address] [facility] [address] [facility] [place] [address] [place] [address] [phone] Social History Tobacco Use Types Packs/Day Years Used Date Passive Smoke Exposure - Never Smoker Smokeless Tobacco: Never Used Alcohol Use Standard Drinks/Week Comments No 0 (1 standard drink = 0.6 oz pure alcoho l) Sex Assigned at Date Recorded Female 01/27/2022 12:36 PM CDT COVID-19 Exposure Response Date Recorded In the last month, have you been in contact with No / Unsure 08/05/2021 7:17 AM CDT someone who was confirmed or suspected to have Coronavirus / COVID-19? documented as of this encounter Miscellaneous Notes Telephone Encounter - Kanika Álvarez RN - 09/02/2021 12:18 PM CDT Routing refill request to provider for review/approval because: Labs out of range: CBC, creatinine documented in this encounter Plan of Treatment Upcoming Encounters Date Type Specialty Care Team Description 10/26/2022 Lab Oncology Yris Perez MD [address] [facility] [address] [place], [place] [address] (Wo rk) 11/03/2022 Oncology Visit Oncology Yris Perez MD [address] [facility] [address] [place], [place] [address] (Wo rk) documented as of this encounter Visit Diagnoses Diagnosis Acute idiopathic gout of left foot documented in this encounter Additional Health Concerns Infection Onset Date Last Indicated Resolved Time 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, 01/08/2017 9 06/08/17, 08/26/17 documented as of this encounter Care Teams Filler Machine Operator Relationship Specialty Start Date End Date Chan Duke MD PCP - General Internal Medicine 08/21/21 [address] [place] [address] [place], [place] [phone] Jordin Allred, Assigned Musculoskeletal 03/02/21 DPM Provider [address] [facility] [address] [place], [place] [phone] Chan Duke MD Assigned PCP 08/24/[address] [place] [address] [place], [place] [phone] documented as of this encounter
--- OUTSIDE RECORDS SUMMARY | 2022-08-20 14:23 | XMS_ITS | Encounter Summary ---
:1945 Author Organization [place] Address [address] [place], [place] [address]. [place] [address] Care Team Providers Name Role Phone Simon Claros MD Primary Care Provider Simon Claros MD Unavailable Reason for Visit Reason Comments Pain Toe Pain Encounter Details Date Type Department Care Team Description 02/21/2021 Office Visit [facility] ChalinoJordin barron, Azeem rowing nail, right great toe (Primary Dx); [facility] [place] DPM Great toe pain, right; Podiatry [address] [address] Change in nail appearance [address] [place] [address] [place] [address] [phone] (Wo rk) Social History Tobacco Use Types [...] been in contact with No / Unsure 02/21/2021 8:52 AM CDT someone who was confirmed or suspected to have Coronavirus / COVID-19? documented as of this encounter Last Filed Vital Signs Vital Sign Reading Time Taken Comments Blood Pressure 146/67 02/21/2021 8:54 AM CDT Pulse - - Temperature - - Respiratory Rate - - Oxygen Saturation - - Inhaled Oxygen Concentration - - Weight 67.1 kg (148 lb) 02/21/2021 8:54 AM CDT Height 167.6 cm (5' 6) 02/21/2021 8:54 AM CDT Body Mass Index 23.89 02/21/2021 8:54 AM CDT documented in this encounter Patient Instructions Patient InstructionsRossy Ramos ATC - 02/21/2021 9:00 AM CDT Darshana to follow up with Primary Care provider regarding elevated blood pressure. POST-PERMANENT NAIL REMOVAL 1. [id number] pain medication (tylenol / ibuprofen), elevating your [...] advise if a follow up is needed. NAIL FUNGUS / ONYCHOMYCOSIS Nail fungus is not a hygiene problem and will likely not lead to significant medical problems. The nails may get thick causing pain and possibly local skin infection. Treatments include debridement (trimming), oral antifungals, topical antifungals and complete removal of the nail. Most fungal nails are not treated. Topicals such as tea tree oil can be helpful for surface fungus and may, at best, limit progression.Over the counter creams (such as Lamisil) can also be used however, their effectiveness is also quite low. Topical treatment with Pen lac is expensive and often not covered by insurance. Pen lac has anapproximate 8% success rate. Topical therapy recommendations is to apply twice a day for at least 3-4 months as it takes 9 months for new nail to grow out. Experts suggest soaking your feet for 15 to 20 minutes in a mixture of 1 cup vinegar to 4 cups warm water. Be sure to rinse well and pat your feet dry when you're done. You can soak your feet like thisdaily. But if your skin becomes irritated, try soaking only two to three times a week. Vicks VapoRub, as with vinegar, there have been no controlled clinical trials to assess the effectiveness of VicksVapoRub on nail fungus, but there have been numerous anecdotal reports that it works. There's no consensus on how often to apply this product, so check with your doctor before using it on your nails. Oral therapies include Sporanox and Lamisil. Oral therapies are also expensive and not very effective. Side effects such as liver disease are the main concern. Return of fungus is common even if the treatment worked. Other Tips: - Penlac nail medication apply daily x 4 months; remove old persian first day of each week - Antifungal cream/powder (Zeasorb) - apply daily to feet and shoes x 2 months - Clean shoes with Lysol or in washing machine every few weeks - Rotate shoe gear; give them 24 hours to dry out between days wearing them - Clean pair of socks in morning, clean pair in afternoon if your feet sweat - Shower shoes used in public showers/pools documented in this encounter Progress Notes Jordin Allred DPM - 02/21/2021 9:00 AM CDT ASSESSMENT: Encounter Diagnoses Name Primary? Ingrowing nail, right great toe Yes ??? Great toe pain, right ??? Change in nail appearance MEDICAL DECISION MAKING: We discussed several options of treatment today, including trimming the distal medial aspect of the nail plate, partial nail avulsion and partial chemical matrixectomy. This is been an ongoing problem for her and she said I would like to be done with it. She chose the partial chemical matrixectomy procedure. Chemical Matrixectomy/ Permanent nail removal: The chemical matrixectomy produre was reviewed, including risks, benefits, and post-procedure cares.The risk of discomfort and infection was discussed. The chance of nail regrowth discussed. Written consent was obtained. The site was marked and Time Out called. The base of the right great toe was injected with 2 cc of 2% Lidocaine plain. The toe was then prepped with betadine solution. A tourniquet was applied around the base of the toe to provide hemostasis.Next the toe was checked for adequate anesthesia. With the patient comfortable, the medial nail was freed from the nail bed and marginal soft tissue attachments with a blunt instrument. A longitudinal cut in the nail was made 2mm from the medial skin fold via a nail splitter. It was completed under the epinychium with a holy cross blade. The nail was firmly grasped with a hemostat and removed in total. Using small applicator sticks, three applications for 30 seconds, of Phenol to the nail matrix were performed. The area was diluted with a copious amount of isopropyl alcohol. It was blotted dry. Next Silvadene ointment was applied to the nail bed, followed by a compressive dressing. The tourniquet was removed. The distal toe became immediately pink. The involved foot was kept elevated for several minutes. Patient tolerated the procedure well. Post-procedure instruction handout provided. She also inquired about her right 5th toenail. The nail is thickened, discolored and dystrophic. I explained that there might be some fungal involvement yet this is likely from repetitive trauma, stress on the nail plate. 5th toes are often pressed on by footwear. Given the degree of change, I do not think an antifungal will help. I simply suggest she keep the nail filed and trimmed. If it becomes painful, permanent removal is an option. Disclaimer: This note consists of symbols derived from keyboarding, dictation and/or voice recognition software. As a result, there may be errors in the script that have gone undetected. Please consider this when interpreting information found in this chart. Jordin Allred DPM, FACFAS, [place] Department of Podiatry/Foot & Ankle Surgery HPI: Chief Complaint: pain in large toe of right foot. She specifies the medial edge, distal skin fold Onset of problem: Years Pain/ discomfort is described as: Throbbing Pain Ratin out of 10 at worst Frequency: Daily The pain is exacerbated by contact, pressure pressure History of partial nail avulsion, medial edge, right hallux 04/26/19. * Past Medical History: Diagnosis Date ??? Cancer (H) breast ??? Chronic infection multiple UTIs ??? COPD (chronic obstructive pulmonary disease) (H) * * Past Surgical History: Procedure Laterality Date ??? ARTHROPLASTY HIP ANTERIOR Right 03/10/2016 Procedure: ARTHROPLASTY HIP ANTERIOR; Surgeon: Wayne Estevez MD; Location: OR ??? BIOPSY NODE SENTINEL Right 02/08/2017 Procedure: BIOPSY NODE SENTINEL; Surgeon: Jordin Atkins MD; Location: [facility] ??? COLONOSCOPY N/A 06/03/2017 Procedure: COLONOSCOPY; COLONOSCOPY ; Surgeon: Alejo Aburto MD; Location: GI ??? CYSTOSCOPY N/A 12/09/2017 Procedure: CYSTOSCOPY; Video Cystoscopy Rigid and Flexible, right retrogrades, cystogram, vaginoscopy; Surgeon: Iggy Dodd MD; Location: OR ??? TOBACCO STRIPPER HAND SURGERY hysterectomy ??? LUMPECTOMY BREAST WITH SEED [...] Vitamins-Minerals (ZINC PO) EXAM: Vitals: BP (!) 146/67 Ht 1.676 m (5' 6) Wt 67.1 kg (148 lb) BMI 23.89 kg/m?? BMI: Body mass index [...] contracture in the lower extremities. Derm: The distal medial aspect of the right hallux nail plate appears to be pushing into the skin. This is her area of tenderness. No erythema, no edema, no wound Musculoskeletal: Lower extremity muscle strength is normal. No gross deformities. Rectus to high foot structure documented in this encounter Plan of Treatment Upcoming Encounters Date Type Specialty Care Team Description 10/26/2022 Lab Oncology Yris Perez MD [address] [phone] (Madeleine proctor) 11/03/2022 Oncology Visit Oncology Yris Perez MD [address] [address] (Wo rk) documented as of this encounter Procedures Procedure Name Priority Date/Time Associated Diagnosis Comme nts [place] REMOVAL NAIL/NAIL Routine 02/21/2021 9:14 AM CDT Ingrowing nail, right BED, PARTIAL OR great toe COMPLETE Great toe pain, right documented in this encounter Visit Diagnoses Diagnosis Ingrowing nail, right great toe - Primar y Ingrowing nail Great toe pain, right Change in nail appearance documented in this encounter Additional Health Concerns Infection Onset Date Last Indicated Resolved Time 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, 01/08/2017 9 06/08/17, 08/26/17 documented as of this encounter Care Teams Lens Gauger Relationship Specialty Start Date End Date Simon Claros MD PCP - General Internal Medicine 09/22/12 08/20/21 Simon Claros MD Assigned PCP 06/18/16 03/01/21 [address] [facility] [address] [place] [phone] documented as of this encounter
--- OUTSIDE RECORDS SUMMARY | 2022-08-20 14:23 | XMS_ITS | Encounter Summary ---
:1945 Author Organization [place] Address [facility] [place] [address] Care Team Providers Name Role Phone Jordin Allred Renata JORDAN Unavailable Chan Duke MD Primary Care Provider Chan Duke MD Unavailable Laurie Villarreal MD Unavailable Reason for Referral Diagnostic Imaging XR (Routine) - Pending Review Specialty Diagnoses / Procedures Referred By Contact Refer red To Contact Diagnoses Malignant neoplasm of upper-inner quadrant of right breast in female, estrogen receptor positive (H) Laurie Villarreal MD Procedures XR Femur Right [address] [place], [place] [address] Referral ID Status Reason Start Date Expiration Date Visits V isits Requested Authorized [id number] Pending 10/06/2021 10/06/2022 1 1 Review [employer] Reason for Visit Reason Comments Oncology Clinic Visit Malignant neoplasm of female breast, unspecified estrogen receptor status, unspecified laterality, unspecified site of breast (H) Consultation (Routine) - Pending Review Specialty Diagnoses / Procedures Referred By Contact Refer red To Contact Medical Oncology Diagnoses Breast cancer (H) Generic External Data Department Referral ID Status Reason Start Date Expiration Date Visits V isits Requested Authorized [id number] Pending 09/04/2021 09/04/2022 1 1 Review Encounter Details Date Type Department Care Team Description 10/06/2021 Oncology Visit [facility] Laurie Villarreal neoplasm of upper-inner quadrant of right breast in female, estrogen receptor positive (H) (Primary Dx); Cancer Center Eduardo Santana MD Aromatase inhibitor use [address] [place] [address] [facility] [address] [facility] [phone] [place] [address] (Work) [phone] Social History Tobacco Use Types Packs/Day Years [...] with No / Unsure 10/15/2021 12:43 PM [employer] someone who was confirmed or suspected to have Coronavirus / COVID-19? documented as of this encounter Last Filed Vital Signs Vital Sign Reading Time Taken Comments Blood Pressure 146/77 10/06/2021 9:24 AM [employer] IN[employer]CTOR Pulse 93 10/06/2021 9:24 AM [employer] Temperature 36.4 ??C (97.6 ??F) 10/06/2021 9:24 AM [employer] IN[employer]CTOR Respiratory Rate 16 10/06/2021 9:24 AM [employer] IN[employer]CTOR Oxygen Saturation 97% 10/06/2021 9:24 AM [employer] IN[employer]CTOR Inhaled Oxygen Concentration - - Weight 70.4 kg (155 lb 3.2 oz) 10/06/2021 9:24 AM [employer] Height 167.6 cm (5' 6) 10/06/2021 9:24 AM [employer] Body Mass Index 25.05 10/06/2021 9:24 AM [employer] documented in this encounter Progress Notes Nichol Carvajal MA - 10/06/2021 9:15 AM CST Oncology Rooming Note October 06, 2021 9:26 AM Darshana Brooks is a 76 year old female who presents for: Chief Complaint Patient presents with ??? Oncology Clinic Visit Malignant neoplasm of female breast, unspecified estrogen receptor status, unspecified laterality, unspecified site of breast (H) Initial Vitals: There were no vitals taken for this visit. Estimated body mass index is 24.37 kg/m??as calculated from the following: Height as of 08/05/21: 1.676 m (5' 6). Weight as of 08/05/21: 68.5 kg (151 lb). There is no height or weight on file to calculate BSA. Data Unavailable Comment: Data Unavailable No LMP recorded. Patient is postmenopausal. Allergies reviewed: Yes Medications reviewed: Yes Medications: MEDICATION REFILLS NEEDED TODAY. Provider was notified. Pharmacy name entered into [email or web address]: [id number] - [place], [place] - [address] Clinical concerns: Refill needed for Anastrozole Nichol Carvajal MA [employer] Laurie Villarreal MD - 10/06/2021 9:15 AM CST [facility] Hematology/Oncology New Patient Note Today's Date: 10/06/21 Reason for Consult: Breast cancer HISTORY OF PRESENT ILLNESS: Oncology treatment summary 1. 1.2 cm right breast cancer diagnosed in January 2017 status post lumpectomy, radiation low risk Oncotype ER/AK positive HER-2 negative no lymph nodes 2. Started letrozole could not tolerate a change to Arimidex tolerating it well 3. Bone density scan due in February 2022 4. Zometa once every 6 months for 3 years. Last treatment in March 2021 Interval history: Darshana returns today to establish care. She is clinically feeling well. She did notice that a week from to Wednesday she had right-sided femur pain which she has had few yearsago and then prior to her breast cancer diagnosis. Patient states this time the pain was most severeto the point where she was limping. X-ray has not been obtained. She had a right hip replacement thepain did not radiate to the hip and she felt like a mid thigh bone knee. REVIEW OF SYSTEMS: 14 point ROS was reviewed and is negative other than as noted above in HPI. HOME MEDICATIONS: Current Outpatient Medications Medication Sig Dispense Refill ??? albuterol (PROAIR HFA) 108 (90 Base) MCG/ACT inhaler INHALE 2 PUFFS 4 TIMES A DAY NEEDED 8.5 Inhaler 11 ??? allopurinol (ZYLOPRIM) 300 MG tablet TAKE 1 TABLET BY MOUTH EVERY DAY 90 tablet 2 ??? ANASTROZOLE PO Take 1 mg by mouth daily ??? Ascorbic Acid (VITAMIN C PO) ??? calcium carbonate (OS-ROSALINO) 500 MG tablet Take 1 tablet by mouth daily ??? Cholecalciferol (VITAMIN D3 PO) Take 2,000 Units by mouth daily ??? CRANBERRY PO Take by mouth daily ??? loratadine (CLARITIN) 10 MG tablet Take 10 mg by mouth ??? Multiple Vitamins-Minerals (ZINC PO) ALLERGIES: Allergies Allergen Reactions ??? Other [No Clinical Screening - See Comments] PN: LW Other1: -latex:nasal congestion, eyes watering. LW Other2: -canteloupe, horses, cats, dust, molds, trees ??? Sulfamethoxazole Heartburn ??? Chlorhexidine Gluconate [Chlorhexidine] Rash ??? Latex Rash Other reaction(s): Other, see comments PN: sneezing, runny nose, PAST MEDICAL HISTORY: Past Medical History: Diagnosis Date ??? Cancer (H) breast ??? Chronic infection multiple UTIs ??? COPD (chronic obstructive pulmonary disease) (H) PAST SURGICAL HISTORY: Past Surgical History: Procedure Laterality Date ??? ARTHROPLASTY HIP ANTERIOR Right 03/10/2016 Procedure: ARTHROPLASTY HIP ANTERIOR; Surgeon: Wayne Estevez MD; Location: OR ??? BIOPSY NODE SENTINEL Right 02/08/2017 Procedure: BIOPSY NODE SENTINEL; Surgeon: Jordin Atkins MD; Location: [facility] ??? BREAST SURGERY February 2017 Lumpectomy right breast ??? COLONOSCOPY N/A 06/03/2017 Procedure: COLONOSCOPY; COLONOSCOPY ; Surgeon: Alejo Aburto MD; Location: [facility] GI ??? CYSTOSCOPY N/A 12/09/2017 Procedure: CYSTOSCOPY; Video Cystoscopy Rigid and Flexible, right retrogrades, cystogram, vaginoscopy; Surgeon: Iggy Dodd MD; Location: [facility] OR ??? OUTDOOR ILLUMINATING ENGINEER SURGERY hysterectomy ??? LUMPECTOMY BREAST WITH SEED LOCALIZATION Right 02/08/2017 Procedure: LUMPECTOMY BREAST WITH SEED LOCALIZATION; Surgeon: Jordin Atkins MD; Location: [facility] ??? ORTHOPEDIC SURGERY hip replacement SOCIAL HISTORY: Social History Socioeconomic History ??? Marital status: Spouse name: Not on file ??? Number of children: Not on file ??? Years of education: Not on file ??? Highest education level: Not on file Occupational History ??? Not on file Tobacco Use ??? Smoking status: Passive Smoke Exposure - Never Smoker ??? Smokeless tobacco: Never Used Substance and Sexual Activity ??? Alcohol use: No Alcohol/week: 0.0 standard drinks ??? Drug use: No ??? Sexual activity: Not Currently Partners: Male control/protection: Post-menopausal Other Topics Concern ??? Parent/sibling w/ CABG, UT or angioplasty before 65F 55M? No Social History Narrative ??? Not on file Social Determinants of Health Financial Resource Strain: Not on file Food Insecurity: Not on file Transportation Needs: Not on file Physical Activity: Not on file Stress: Not on file Social Connections: Not on file Intimate Partner Violence: Not on file Housing Stability: Not on file FAMILY HISTORY: Family History Problem Relation Age of Onset ??? Diabetes Mother type? unknown ??? Hypertension Mother ??? Diabetes Father border line diabetes ??? Asthma Father Asthma, Emphazema, Heart Failure ??? Breast Cancer Sister ??? Other Cancer Brother leukemia ??? Breast Cancer Other Aunt ??? Breast Cancer Niece Double mastectomy, reconstruction ??? Breast Cancer Sister twice ??? Anesthesia Reaction Sister Problems coming out from anesthersia ??? Other Cancer Brother mesothelioma ??? Osteoporosis Other paternal aunt PHYSICAL EXAM: Vital signs: There were no vitals taken for this visit. ECO GENERAL/CONSTITUTIONAL: No acute distress. EYES: Pupils are equal, round, and react to light and accommodation. Extraocular movements intact. No scleral icterus. ENT/MOUTH: Neck supple. Oropharynx clear, no mucositis. LYMPH: No anterior cervical, posterior cervical, supraclavicular, axillary or inguinal adenopathy. RESPIRATORY: Clear to auscultation bilaterally. No crackles or wheezing. CARDIOVASCULAR: Regular rate and rhythm without murmurs, gallops, or rubs. GASTROINTESTINAL: No hepatosplenomegaly, masses, or tenderness. The patient has normal bowel sounds.No guarding. No distention. MUSCULOSKELETAL: Warm and well-perfused, no cyanosis, clubbing, or edema. NEUROLOGIC: Cranial nerves II-XII are intact. Alert, oriented, answers questions appropriately. INTEGUMENTARY: No rashes or jaundice. GAIT: Steady, does not use assistive device Bilateral breast exams normal LABS: CBC RESULTS: Recent Labs Lab Test 08/05/21 0907 WBC 7.7 RBC 4.74 HGB 15.9* HCT 46.2 MCV 98 MCH 33.5* MCHC 34.4 RDW 14.3 PLT 224 Recent Labs Lab Test 08/05/21 0907 08/22/20 1748 NA 140 136 POTASSIUM 4.6 4.2 CHLORIDE 104 105 CO2 29 27 ANIONGAP 7 4 GLC 105* 117* BUN 15 19 CR 1.07* 0.94 ROSALINO 9.3 8.9 PATHOLOGY: As per [facility] IMAGING: Breast mammogram March 2021 normal ASSESSMENT/PLAN: Darshana Brooks is a 76 year old female with a diagnosis of stage I breast cancer ER/AK positive HER-2/prince negative status post lumpectomy radiation currently on aromatase inhibitor therapy completes 5 years in 2021 1. Breast cancer: Continue anastrozole 2. Osteopenia bone density scan due in 6 months 3. Right femur pain obtain x-ray 4. Labs today including bone specific alkaline phosphatase will call with the results see me back in6 months 5. Hot flashes try magnesium 500 mg at bedtime All questions answered to her satisfaction Laurie Villarreal MD Hematology/Oncology [facility] [employer] documented in this encounter Miscellaneous Notes Addendum Note - Laurie Villarreal MD - 10/06/2021 9:15 AM [employer] Addended by: LAURIE VILLARREAL on: 10/06/2021 10:45 AM Modules accepted: Orders [employer] Addendum Note - Shruthi Emmanuel RN - 10/06/2021 9:15 AM [employer] IN[employer] Addended by: SHRUTHI EMMANUEL on: 10/13/2021 02:54 PM Modules accepted: Orders [employer] documented in this encounter Plan of Treatment Upcoming Encounters Date Type Specialty Care Team Description 10/26/2022 Lab Oncology Yris Perez MD [address] [facility] [address] [place] [address] (Wo rk) 11/03/2022 Oncology Visit Oncology Yris Perez MD [address] [address] (Wo rk) Scheduled Orders Name Type Priority Associated Diagnoses Order S chedule CBC with platelets and Lab Panel Routine Malignant neoplasm of Expected: differential upper-inner quadrant 04/05/ 022 of right breast in (Approxim ate), female, estrogen Expires: receptor positive (H) Comprehensive metabolic Lab Routine Malignant neoplas m of Expected: panel upper-inner quadrant 022 of right breast in (Approxim ate), female, estrogen Expires: receptor positive (H) CEA Lab Routine Malignant neoplasm of Expect ed: upper-inner quadrant 022 of right breast in (Approxim ate), female, estrogen Expires: receptor positive (H) Ca27.29 breast tumor Lab Routine Malignant neoplasm o f Expected: marker upper-inner quadrant 022 of right breast in (Approxim ate), female, estrogen Expires: receptor positive (H) documented as of this encounter Procedures Procedure Name Priority Date/Time Associated Comments Diagnosis CBC WITH PLATELETS Routine 10/06/2021 10:20 Malignant neoplasm Results for this AND DIFFERENTIAL AM [employer] of upper-inner procedure are in quadrant of right the result s breast in female, section. estrogen receptor positive (H) CBC WITH PLATELETS & Routine 10/06/2021 10:20 Malignant neopla sm Results for this DIFFERENTIAL AM [employer] of upper-inner procedure are in quadrant of right the result s breast in female, section. estrogen receptor positive (H) CEA Routine 10/06/2021 10:20 Malignant neoplasm Resul ts for this AM [employer] of upper-inner procedure are in quadrant of right the result s breast in female, section. estrogen receptor positive (H) CA27.29 BREAST TUMOR Routine 10/06/2021 10:20 Malignant neopla sm Results for this MARKER AM [employer] of upper-inner procedure are in quadrant of right the result s breast in female, section. estrogen receptor positive (H) BONE SPECIFIC ALK Routine 10/06/2021 10:20 Malignant neoplasm Results for this PHOSPHATASE AM [employer] of upper-inner procedure are in quadrant of right the result s breast in female, section. estrogen receptor positive (H) documented in this encounter Results XR Femur Right 2 Views (10/15/2021 1:09 PM [employer] INSTRUCTOR) Anatomical Region Laterality Modality Hip, Thigh, Knee Right Radio Fluoroscopy Specimen (Source) Anatomical Location Collection Method / Collectio n Time Received Time / Laterality Volume Impressions 10/15/2021 7:04 PM [employer]CTOR IMPRESSION: No fracture or destructive bone lesion. RENATA MURDOCK MD SYSTEM ID: ??ALAORR Narrative 10/15/2021 7:04 PM [employer] INSTRUCTOR RIGHT FEMUR TWO VIEWS ? 10/15/2021 1:09 PM HISTORY: ??Pain. Breast cancer. FINDINGS: Unremarkable appearance of rig ht hip arthroplasty. Procedure Note Renata Murdock MD - 10/15/2021Formatting o f this note might be different from the original. RIGHT FEMUR TWO VIEWS 10/15/2021 1:09 PM HISTORY: Pain. Breast cancer. FINDINGS: Unremarkable appearance of rig ht hip arthroplasty. IMPRESSION: No fracture or destructive b one lesion. RENATA MURDOCK MD SYSTEM ID: ALAORR Laurie Villarreal MD IMG DIAGNOSTIC IMAGING ORDER [place] CBC with platelets and differential (10/06/2021 10:20 AM [employer]) Analysis Performed At Patho logist Time Signature WBC Count 6.5 4.0 - 11.0 10/06/2021 LABORATORY 10e3/uL 10:29 AM [employer] RBC Count 4.58 3.80 - 10/06/2021 LABORATORY 5.20 10:29 AM [employer] 10e6/uL Hemoglobin 14.6 11.7 - 10/06/2021 LABORATORY 15.7 g/dL 10:29 AM [employer] Hematocrit 44.4 35.0 - 10/06/2021 LABORATORY 47.0 % 10:29 AM [employer] MCV 97 78 - 100 10/06/2021 LABORATORY fL 10:29 AM [employer]CTOR MCH 31.9 26.5 - 10/06/2021 LABORATORY 33.0 pg 10:29 AM [employer] MCHC 32.9 31.5 - 10/06/2021 LABORATORY 36.5 g/dL 10:29 AM [employer]CTOR RDW 13.8 10.0 - 10/06/2021 LABORATORY 15.0 % 10:29 AM [employer]CTOR Platelet Count 223 150 - 450 10/06/2021 LABORATORY 10e3/uL 10:29 AM [employer] % Neutrophils 64 % 10/06/2021 LABORATORY 10:29 AM [employer] % Lymphocytes 21 % 10/06/2021 LABORATORY 10:29 AM [employer] % Monocytes 10 % 10/06/2021 LABORATORY 10:29 AM [employer] IN[employer]CTOR % Eosinophils 4 % 10/06/2021 LABORATORY 10:29 AM [employer] % Basophils 1 % 10/06/2021 LABORATORY 10:29 AM [employer] % Immature 0 % 10/06/2021 LABORATORY Granulocytes 10:29 AM [employer] NRBCs per 100 WBC 0 <1 /100 10/06/2021 LABORATO RY 10:29 AM [employer] IN[employer]CTOR Absolute 4.1 1.6 - 8.3 10/06/2021 LABORATORY Neutrophils 10e3/uL 10:29 AM [employer]CTOR Absolute 1.4 0.8 - 5.3 10/06/2021 LABORATORY Lymphocytes 10e3/uL 10:29 AM [employer] IN[employer]CTOR Absolute 0.7 0.0 - 1.3 10/06/2021 LABORATORY Monocytes 10e3/uL 10:29 AM [employer] INSTRUCTOR Absolute 0.3 0.0 - 0.7 10/06/2021 LABORATORY Eosinophils 10e3/uL 10:29 AM [employer] IN[employer]CTOR Absolute 0.1 0.0 - 0.2 10/06/2021 LABORATORY Basophils 10e3/uL 10:29 AM [employer] IN[employer]CTOR Absolute Immature 0.0 <=0.0 10/06/2021 LABORATO RY Granulocytes 10e3/uL 10:29 AM [employer] FITNESS INSTRUCTOR Absolute NRBCs 0.0 10e3/uL 10/06/2021 LABORATORY 10:29 AM [employer] INSTRUCTOR Specimen Anatomical Collection Method / Collection Time Recei caitlin Time (Source) Location / Volume Laterality Blood STRUCTURE OF RIGHT Venipuncture / 10/06/2021 10:20 UPPER LIMB / Unknown AM [employer] FITNESS INSTRUCTOR 10:24 AM [employer] FITNESS INSTRUCTOR Unknown aLurie Villarreal MD LAB - BLOOD ORDERABLES Performing Organization Address City/State/ZIP Code Phon e Number [place]AT[place] [address] Care Lab [address] [place] 1st floor, Room [address] Bone specific alk phosphatase (10/06/2021 10:20 AM [employer] INSTRUCTOR) athologist [facility] Bone Spec Alk 12.8 ug/L 10/08/2021 [facility] Phosphatase 12:46 AM A[employer] FITNESS INSTRUCTOR Comment: INTERPRETIVE INFORMATION: Bone Specific Alkaline Phosphatase Liver alkaline phosphatase can affect th e measurement of bone specific alkaline phosphatase in th is assay. Each 100 U/L of liver alkaline phosphatase contri butes an additional 2.5 to 5.8 ug/L to the bone specific alk carla phosphatase result. Specimen Anatomical Collection Method / Collection Time Recei caitlin Time (Source) Location / Volume Laterality Blood STRUCTURE OF RIGHT Venipuncture / 10/06/2021 10:20 UPPER LIMB / Unknown AM [employer] FITNESS INSTRUCTOR 10:25 AM A[employer] FITNESS INSTRUCTOR Unknown Narrative [facility] - 10/08/2021 12:46 AM A[employer] FITNESS INSTRUCTOR INTERPRETIVE INFORMATION: Bone Specific Alkaline Phosphatase ??Premenopausal Female: ?4.5 - 16.9 ug/L ??Postmenopausal Female: ?? 7.0 - 22.4 ug/L Performed By: [facility] [address] [place] [address] Burglar Alarm Mechanic: Marilu Ovalles MD Laurie Villarreal MD LAB - BLOOD ORDERABLES Performing Organization Address City/State/ZIP Code Phon e Number [facility] [place], [place] [phone] [address] [facility] [phone] Ca27.29 breast tumor marker (10/06/2021 10:20 AM [employer] INSTRUCTOR) athologist [facility] CA 27-29 30 0 - 39 U/mL 10/06/2021 [facility] 1:56 PM [employer] INSTRUCTOR Specimen Anatomical Collection Method / Collection Time Recei caitlin Time (Source) Location / Volume Laterality Blood STRUCTURE OF RIGHT Venipuncture / 10/06/2021 10:20 UPPER LIMB / Unknown AM [employer] FITNESS INSTRUCTOR 10:24 AM A[employer] FITNESS INSTRUCTOR Unknown Narrative [facility] - 10/06/2021 1:56 PM [employer] FITNESS INSTRUCTOR Assay Method: ??Chemiluminescence using [employer] XP Laurie Villarreal MD LAB - BLOOD ORDERABLES Performing Organization Address [facility]/ZIP [facility] Phon e Number [place] [address] [address] [facility], [address] [place] [address], Lab [facility] [address] [facility], Room [address]80 CEA (10/06/2021 10:20 AM A[employer] FITNESS INSTRUCTOR) athologist Signature CEA 0.8 0.0 - 2.5 10/06/2021 [facility] ug/L 1:57 PM [employer] FITNESS INSTRUCTOR Comment: Smoking may cause CEA results t o be elevated. Specimen Anatomical Collection Method / Collection Time Recei caitlin Time (Source) Location / Volume Laterality Blood STRUCTURE OF RIGHT Venipuncture / 10/06/2021 10:20 UPPER LIMB / Unknown AM [employer] FITNESS INSTRUCTOR 10:24 AM A[employer] FITNESS INSTRUCTOR Unknown Narrative [facility] - 10/06/2021 1:57 PM A[employer] FITNESS INSTRUCTOR Assay Method: ??Chemiluminescence using [employer] XP Laurie Villarreal MD LAB - BLOOD ORDERABLES Performing Organization Address City/[facility]/ZIP Code Phon [place] [address] [phone] Lab [address] [facility], [address] [place] [address], Lab [facility] [address] [facility], [address]80 documented in this encounter Visit Diagnoses Diagnosis 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, estrogen receptor positive (H) - Primary Aromatase inhibitor use Use of aromatase inhibitors 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, estrogen receptor positive (H) documented in this encounter Additional Health Concerns Infection Onset Date Last Indicated Resolved Time 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, 01/08/2017 9 06/08/17, 08/26/17 documented as of this encounter Care Teams Plaster Patternmaker Relationship Specialty Start Date End Date Chan Duke MD PCP - General Internal Medicine 08/21/21 [address] [place] [address] [place] [address] Jordin Allred, Assigned Musculoskeletal 03/02/21 DPM Provider [address] [facility] [address] [place] [address] Chan Duke MD Assigned PCP 08/24/21 [address] [place] [place] [address] Laurie Villarreal Assigned Cancer Care 10/12/21 05/15/22 MD Max Provider [address] [place] [address] documented as of this encounter
--- OUTSIDE RECORDS SUMMARY | 2022-08-20 14:23 | XMS_ITS | Encounter Summary ---
:1945 Author Organization [place] Address [facility]0 [facility] [address] Care Team Providers Name Role Phone Simon Claros MD Primary Care Provider Simon Claros MD Unavailable Reason for Visit Reason Onset Date Comments *-*INCOMING RECORDS*-* 01/14/2021 internal ref Encounter Details Date Type Department Care Team Description 01/14/2021 PRE VISIT [facility] Didier Silver, *-*INC OMING RECORDS*-* Cancer Center Eduardo HINES (internal ref) [address] [facility] [address] [place] [address] Medical Ctr [address] [place] [address] [place] [phone] [place] [id number] Social History Tobacco Use Types Packs/Day Years Used Date Passive Smoke Exposure - Never Smoker Smokeless Tobacco: Never Used Alcohol Use Standard Drinks/Week Comments No 0 (1 standard drink = 0.6 oz pure alcoho l) Sex Assigned at Date Recorded Female 01/27/2022 12:36 PM CDT COVID-19 Exposure Response Date Recorded In the last month, have you been in contact with No / Unsure 01/13/2021 9:41 AM CHIEF TECHNICIAN X RAY someone who was confirmed or suspected to have Coronavirus / COVID-19? documented as of this encounter Miscellaneous Notes Telephone Encounter - Danielle Nogueira - 01/14/2021 3:18 PM CST ONCOLOGY INTAKE: Records Information APPT INFORMATION: Referring provider: Dr. Olivarez Referring provider???s clinic: [facility] Reason for visit/diagnosis: breast cancer Has patient been notified of appointment date and time?: yes RECORDS INFORMATION: Were the records received with the referral (via Rightfax)? no Has patient been seen for any external appt for this diagnosis? no If yes, where? n/a Has patient had any imaging or procedures outside of [place] for this condition? no If Yes, where? n/a ADDITIONAL INFORMATION: none F TECHNICIAN X RAY documented in this encounter Plan of Treatment Upcoming Encounters Date Type Specialty Care Team Description 10/26/2022 Lab Oncology Yris Perez MD [address] [place] [id number] (Wo rk) 11/03/2022 Oncology Visit Oncology Yris Perez MD [address] [address] (Wo rk) documented as of this encounter Visit Diagnoses Not on filedocumented in this encounter Additional Health Concerns Infection Onset Date Last Indicated Resolved Time 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, 01/08/2017 9 06/08/17, 08/26/17 documented as of this encounter Care Teams Torch Solderer Relationship Specialty Start Date End Date Simon Claros MD PCP - General Internal Medicine 09/22/12 08/20/21 Simon Claros MD Assigned PCP 06/18/16 03/01/21 [address] [facility] [place] [address] [place] [phone] documented as of this encounter
--- OUTSIDE RECORDS SUMMARY | 2022-08-20 14:23 | XMS_ITS | Encounter Summary ---
:1945 Author Organization [place] Address [address] [place], [place] [address]. [place] [address] Care Team Providers Name Role Phone Simon Claros MD Primary Care Provider ChalinoJordin Amari DPM Unavailable Chan Olivarez MD Unavailable Encounter Details Date Type Department Care Team Description 06/17/2021 Travel Social History Tobacco Use Types Packs/Day [...] been in contact with No / Unsure 06/17/2021 3:39 PM CDT someone who was confirmed or suspected to have Coronavirus / COVID-19? 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
--- OUTSIDE RECORDS SUMMARY | 2022-08-20 14:23 | XMS_ITS | Encounter Summary ---
:1945 Author Organization [place] Address [facility] [place] [address] Care Team Providers Name Role Phone Simon Claros MD Primary Care Provider ChalinoJordin Amair DPM Unavailable Chan Olivarez MD Unavailable Encounter Details Date Type Department Care Team Description 08/05/2021 Travel Social History Tobacco Use Types Packs/Day [...] 10/26/2022 Lab Oncology Yris Perez MD [address] [address] (Wo rk) 11/03/2022 Oncology Visit Oncology Yris Perez MD [address] [address] (Wo rk) documented as of this encounter Visit Diagnoses Not on filedocumented in this encounter Additional Health Concerns Infection Onset Date Last Indicated Resolved Time 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
--- OUTSIDE RECORDS SUMMARY | 2022-08-20 14:23 | XMS_ITS | Encounter Summary ---
:1945 Author Organization [place] Address [address] [place] [address]. [place] [address] Care Team Providers Name Role Phone Simon Claros MD Primary Care Provider ChalinoJordin Amari DPM Unavailable Chan Olivarez MD Unavailable Encounter Details Date Type Department Care Team Description 06/06/2021 Medical Correspondence [facility] Scan, SUPPORTIVE CARE Health Info Mgmt Non-Provider SERVICES NO TE KB [facility] [address] [place] [phone] Social History Tobacco Use Types Packs/Day [...] Description 10/26/2022 Lab Oncology Yris Perez MD [address] [place] [address] (Wo rk) 11/03/2022 Oncology Visit Oncology Yris Perez MD [address] [address] (Wo rk) documented as of this encounter Visit Diagnoses Not on filedocumented in this encounter Additional Health Concerns Infection Onset Date Last Indicated Resolved Time 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
--- OUTSIDE RECORDS SUMMARY | 2022-08-20 14:23 | XMS_ITS | Encounter Summary ---
:1945 Author Organization [place] Address [address] [place], [place] [address]. [place] [address] Care Team Providers Name Role Phone Simon Claros MD Primary Care Provider ChalinoJordin Amari DPM Unavailable hCan Olivarez MD Unavailable Encounter Details Date Type Department Care Team Description 03/31/2021 Travel Social History Tobacco Use Types Packs/Day [...] been in contact with No / Unsure 03/31/2021 3:39 PM CDT someone who was confirmed or suspected to have Coronavirus / COVID-19? 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
--- OUTSIDE RECORDS SUMMARY | 2022-08-20 14:23 | XMS_ITS | Encounter Summary ---
:1945 Author Organization [place] Address [facility]0 [facility] 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
--- OUTSIDE RECORDS SUMMARY | 2022-08-20 14:23 | XMS_ITS | Encounter Summary ---
:1945 Author Organization [place] Address [facility] [place] [address] Care Team Providers Name Role Phone Simon Claros MD Primary Care Provider Jordin Allred DPJanelle Unavailable Chan Olivarez MD Unavailable Simon Claros MD Unavailable Chan Olivarez MD Unavailable Chan Duke MD Primary Care Provider Chan Duke MD Unavailable Aaron Garcai MD Unavailable Yris Perez MD Unavailable [phone] Reason for Visit Reason Onset Date Comments *-*INCOMING RECORDS*-* 03/18/2021 Encounter Details Date Type Department Care Team Description 03/18/2021 PRE VISIT [facility] Didier Silver, *-*INC OMING RECORDS*-* Cancer Center [place] HINES [address] [facility] CENTER [facility] Medical Ctr [address] [place] [phone] [facility] [place] [address] Social History Tobacco Use Types Packs/Day Years [...] this encounter Miscellaneous Notes Telephone Encounter - Elizabeth Feldman - 01/15/2021 3:30 PM CST RECORDS STATUS - BREAST RECORDS REQUESTED FROM: [facility] DATE REQUESTED: 03/18/2021 NOTES DETAILS STATUS OFFICE NOTE from referring provider Complete ref Dr. Olivarez OFFICE NOTE from medical oncologist Complete Breast Bi[facility] [place] [facility] 03/27/2020, 03/14/2019 and more OFFICE NOTE from surgeon Complete See Biopsy Notes Below OFFICE NOTE from radiation oncologist DISCHARGE SUMMARY from hospital N/A DISCHARGE REPORT from the ER OPERATIVE REPORT Complete See Breast biopsies from 2016 in [facility] MEDICATION LIST Complete [facility] CLINICAL TRIAL TREATMENTS TO DATE LABS PATHOLOGY REPORTS (Tissue diagnosis, Stage, ER/ID percentage positive and intensity of staining, HER2 IHC, FISH, and all biopsies from breast and any distant metastasis) Complete -internal breast biopsies from 2017 02/08/2017 <INVASIVE CARCINOMA OF THE BREAST: Treated by lumpectomy and right axillary sentinel lymph node dissection Applies to: Lumpectomy plus 4 sentinel lymph nodes 01/25/2017 Right breast, 1:00, 8 cm from nipple, stereotactic guided needle biopsy- - Invasive mammary carcinoma GENONOMIC TESTING TYPE: (Next Generation Sequencing, including Foundation One testing, and Oncotype score) Complete Her 2 Dominick Fish IMAGING (NEED IMAGES & REPORT) CT SCANS MRI MAMMO Complete MA Diagnostic Bilateral 03/22/2020, 01/30/2019, 01/27/2018 ULTRASOUND Complete US Breast Left Limited 03/22/2020 PET BONE SCAN BRAIN MRI Action Action Taken 01/15/2021 3:37PM ELEANOR I called pt Darshana She believes there might be some records from Sep 2020 at [facility]. Pt Darshana would like to schedule a Mammo and would like to know where she can go in the [facility]. 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, 01/08/2017 9 06/08/17, 08/26/17 documented as of this encounter Care Teams Finnish Rubber Relationship Specialty Start Date End Date Simon Claros MD PCP - General Internal Medicine 09/22/12 08/20/21 Chan Duke MD PCP - General Internal Medicine 08/21/[address] [place], [place] [address] Jordin Allred, Assigned Musculoskeletal 03/02/21 DPM Provider [address] [facility] [address] [place], [place] [phone] Chan Olivarez MD Assigned PCP 03/02/21 04/09/21 [address] [place] [address] Simon Claros MD Assigned PCP 04/10/21 05/31/[address] [place] [phone] Chan Olivarez MD Assigned PCP 06/01/21 08/23/[address] [place] [phone] Chan Duke MD Assigned PCP 08/24/21 [address] [place], [place] [phone] Aaron Garcia Assigned Cancer Care 10/12/21 05/15/22 MD Max Provider 500 [place] [address] Yris Perez Assigned Cancer Care 05/16/22 MD Ingrid Provider 420 [facility] [address] [place] [address] documented as of this encounter
--- OUTSIDE RECORDS SUMMARY | 2022-08-20 14:23 | XMS_ITS | Encounter Summary ---
:1945 Author Organization [place] Address [facility]0 [facility] [place] [address] Care Team Providers Name Role Phone Simon Claros MD Primary Care Provider ChalinoJordin Alan DPM Unavailable Chan Olivarez MD Unavailable Reason for Visit Diagnostic Imaging Mammo (Routine) - Closed Specialty Diagnoses / Procedures Referred By Contact Refer red To Contact Diagnoses Screening mammogram, encounter for Simon Claros MD Procedures MA Screen Bilateral w/Ricardo [address] [facility] [address] [address] [place] [address] Referral ID Status Reason Start Date Expiration Date Visits Requ ested Visits Authorized [id number] Closed 01/20/2021 01/20/2022 1 1 Encounter Details Date Type Department Care Team Description 03/24/2021 Ancillary Procedure [facility] Simon Claros reening mammogram, Clinic Sinton L, MD encounter for [address] [place] [address] [place] [address] [address] [phone] [facility] [place] [phone] Social History Tobacco Use Types Packs/Day Years [...] Yris Perez MD 420 [facility] [address] [place] [address] (Wo rk) 11/03/2022 Oncology Visit Oncology Yris Perez MD 420 [facility] [address] [place] [address] (Wo rk) documented as of this encounter Procedures Procedure Name Priority Date/Time Associated Diagnosis Comme nts MA SCREENING Routine 03/24/2021 9:42 AM Screening mammogram, R esults for this BILATERAL W/ RICARDO CDT encounter for procedure are in the results section. documented in this encounter Results MA Screen Bilateral w/Ricardo (03/24/2021 9:42 AM CDT) Anatomical Region Laterality Modality Breast Bilateral Mammography Specimen (Source) Anatomical Location Collection Method / Collectio n Time Received Time / Laterality Volume Impressions 03/24/2021 11:52 AM CDT IMPRESSION: BI-RADS CATEGORY: 2 - Benign Finding(s). RECOMMENDED FOLLOW-UP: Annual Mammograph y. The patient will be notified of the resu lts. LEX BRODY MD Narrative 03/24/2021 11:52 AM CDT Examination: Bilateral digital screening mammography with computer aided detection including digital breast tomosynthesis, 03/24/2021 9:42 AM. Comparison: 03/22/2020 ,01/30/2019, 01/28/20 18, 01/13/2017 History: No current breast concerns. RIG HT breast cancer status post breast conservation therapy. Sister and maternal aunt also with breast cancer. BREAST DENSITY: Heterogeneously dense. COMMENTS: Breast conservation therapy ch anges on the RIGHT. ??No concerning findings. Procedure Note Lex Brody MD - 03/24/2021 Examination: Bilateral digital screening mammography with computer aided detection including digital breast tomosynthesis, 03/24/2021 9:42 AM. Comparison: 03/22/2020 ,01/30/2019, 01/28/20, 01/13/2017 History: No current breast concerns. RIG HT breast cancer status post breast conservation therapy. Sister and maternal aunt also with breast cancer. BREAST DENSITY: Heterogeneously dense. COMMENTS: Breast conservation therapy ch anges on the RIGHT. No concerning findings. IMPRESSION: BI-RADS CATEGORY: 2 - Benign Finding(s). RECOMMENDED FOLLOW-UP: Annual Mammograph y. The patient will be notified of the resu lts. 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
--- OUTSIDE RECORDS SUMMARY | 2022-08-20 14:23 | XMS_ITS | Encounter Summary ---
:1945 Author Organization [place] Address [address] [facility] [facility] [place] [address] Care Team Providers Name Role Phone Jordin Allred Amari DPM Unavailable Chan Duke MD Primary Care Provider Chan Duke MD Unavailable Reason for Referral Consultation (Routine) - Pending Review Specialty Diagnoses / Procedures Referred By Contact Refer red To Contact Medical Oncology Diagnoses Breast cancer (H) Generic External Data Department Referral ID Status Reason Start Date Expiration Date Visits V isits Requested Authorized [id number] Pending 09/04/2021 09/04/2022 1 1 Review Encounter Details Date Type Department Care Team Description 09/04/2021 Transcribe Orders GENERIC EXTERNAL Abstract, Breast cancer (H) DATA DEPARTMENT Provider (Primary Dx) Social History Tobacco Use Types Packs/Day Years [...] Description 10/26/2022 Lab Oncology Yris Perez MD [address] [place] [id number] (Wo rk) 11/03/2022 Oncology Visit Oncology Yris Perez MD 420 [facility] [address] [place], [place] [address] (Wo rk) Scheduled Referrals Name Type Priority Associated Diagnoses Order S chedule Oncology/Hematology Referral Routine Breast cancer (H) Exp ected: 09/04/2021, Adult Referral Expires: 08/16 documented as of this encounter Visit Diagnoses Diagnosis Breast cancer (H) - Primary Malignant neoplasm of breast (female), u nspecified site documented in this encounter Additional Health Concerns Infection Onset Date Last Indicated Resolved Time 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
--- OUTSIDE RECORDS SUMMARY | 2022-08-20 14:23 | XMS_ITS | Encounter Summary ---
:1945 Author Organization [place] Address [address] [place], [place] [address]. [place] [address] Care Team Providers Name Role Phone Simon Claros MD Primary Care Provider Simon Claros MD Unavailable Encounter Details Date Type Department Care Team Description 02/21/2021 Travel Social History Tobacco Use Types Packs/Day [...] Description 10/26/2022 Lab Oncology Yris Perez MD [address] [place] [address] (Wo rk) 11/03/2022 Oncology Visit Oncology Yris Perez MD [address] [place] [address] (Wo rk) documented as of this encounter Visit Diagnoses Not on filedocumented in this encounter Additional Health Concerns Infection Onset Date Last Indicated Resolved Time 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, 01/08/2017 9 06/08/17, 08/26/17 documented as of this encounter Care Teams Repatcher Relationship Specialty Start Date End Date Simon Claros MD PCP - General Internal Medicine 09/22/12 08/20/21 Simon Claros MD Assigned PCP 06/18/16 03/01/21 [address] [place] [address] [place] [phone] documented as of this encounter
--- OUTSIDE RECORDS SUMMARY | 2022-08-20 14:23 | XMS_ITS | Encounter Summary ---
:1945 Author Organization [place] Address [address] [facility] [place] [address] Care Team Providers Name Role Phone Simon Claros MD Primary Care Provider ChalinoJordin Alan DPM Unavailable Chan Olivarez MD Unavailable Reason for Referral Diagnostic Procedure Outpatient (Routine) - Closed Specialty Diagnoses / Procedures Referred By Contact Refer red To Contact Gastroenterology Diagnoses Encounter for preventive health examination Chan Duke MD [facility] [address] [facility] [place] [address] [place] [address] [place] [address] [place] [address] Referral ID Status Reason Start Date Expiration Date Visits Requ ested Visits Authorized [id number] Closed 08/05/2021 08/05/2022 1 1 Scheduling Instructions If EUS or ERCP is selected, it requires clinical review prior to scheduling. Reason for Visit Reason Comments Establish Care Encounter Details Date Type Department Care Team Description 08/05/2021 Office Visit [facility] Chan Duke Encoun ter for preventive health examination (Primary Dx); Clinic Eduardo HINES Chronic obstructive pulmonary disease, u nspecified COPD type (H); [address], [address] Altered bowel function [address] [place] [address] [place] [address] [place] [address] [phone] Social History Tobacco Use Types Packs/Day Years [...] Sign Reading Time Taken Comments Blood Pressure 147/83 08/05/2021 8:23 AM CDT Pulse 73 08/05/2021 8:23 AM CDT Temperature 36.3 ??C (97.4 ??F) 08/05/2021 8:23 AM CDT Respiratory Rate 18 08/05/2021 8:23 AM CDT Oxygen Saturation 96% 08/05/2021 8:23 AM CDT Inhaled Oxygen Concentration - - Weight 68.5 kg (151 lb) 08/05/2021 8:23 AM CDT Height 167.6 cm (5' 6) 08/05/2021 8:23 AM CDT Body Mass Index 24.37 08/05/2021 8:23 AM CDT documented in this encounter Patient Instructions Patient InstructionsWChan becerra MD - 08/05/2021 8:00 AM CDT Mrs. Brooks; It was nice to meet you today. I am glad that your asthma is under control. Please contact me if this becomes more prevalent or youdevelop nighttime symptoms. I would like to evaluate screening blood tests today. This will include cholesterol levels and bloodsugar levels. I would recommend screening colonoscopy as well in the future given your change in bowel function. As would regard this change, I suspect it is sensitivity to lactose and ribose. Eating a diet low inboth of these sugars may be very beneficial in reducing intestinal pressure and pain. Colonoscopy will help us rule out any underlying inflammation. Best regards Chan documented in this encounter Progress Notes Chan Duke MD - 08/05/2021 8:00 AM CDT Assessment & Plan Encounter for preventive health examination We will add a colonoscopy to this patient's recommendation. She has had a change in her bowel function. She states in the past she has had sensitivity to lactose. She states now she is having episodes of gastric distention and pain with normal foods. - Comprehensive metabolic panel (BMP + Alb, Alk Phos, ALT, AST, Total. Bili, TP); Future - CBC with platelets and differential; Future - TSH with free T4 reflex; Future - Lipid panel reflex to direct LDL Fasting; Future - Adult Gastro Ref - Procedure Only; Future - Uric acid; Future - Comprehensive metabolic panel (BMP + Alb, Alk Phos, ALT, AST, Total. Bili, TP) - CBC with platelets and differential - TSH with free T4 reflex - Lipid panel reflex to direct LDL Fasting - Uric acid Chronic obstructive pulmonary disease, unspecified COPD type (H) Stable. Utilizing albuterol perhaps twice per month. She is cognizant that she will need her albuterol when she goes out in nature. Antihistamines have reduced her respiratory symptomatology. Question whether or not this patient has an element of environmental asthma. We will continue albuterol as needed along with her loratadine. If her symptoms increase I would recommend utilizing a inhaled glucocorticoid additionally. Spirometry pre and post beta agonist would be prudent in this instance Altered bowel function As noted above. More issues with abdominal distention and discomfort. Will refer her for colonoscopy. See Patient Instructions Return in about 1 year (around 08/05/2022) for Routine preventive. Chan Duke MD [facility] EDUARDO [place] is a 75 year old who presents for the following health issues HPI 75-year-old presenting to clinic today for a new patient visit. She previously was seen by a physician in our group who has retired. Overall doing relatively well. Continues to be active. Has not been quite as active physically sincethe onset of the pandemic. She does carry with her history of COPD. She has wheezing, with allergic exacerbation of wheezing. Currently she utilizes albuterol perhaps twice monthly. She never uses it in the evenings. She has had some change in her bowel function. Historically she has had lactose intolerance. Now sheis developing more more abdominal distention and pain with normal foods. She does have a history of diverticulitis. New Patient/Transfer of Care Review of Systems Constitutional, HEENT, cardiovascular, pulmonary, gi and gu systems are negative, except as otherwise noted. Objective BP (!) 147/83 (BP Location: Right arm, Cuff Size: Adult Large) Pulse 73 Temp 97.4 ??F (36.3 ??C)(Temporal) Resp 18 Ht 1.676 m (5' 6) Wt 68.5 kg (151 lb) SpO2 96% No BMI 24.37 kg/m?? Body mass index is 24.37 kg/m??. Physical Exam GENERAL: healthy, alert and no distress EYES: Eyes grossly normal to inspection, PERRL and conjunctivae and sclerae normal HENT: ear canals and TM's normal, nose and mouth without ulcers or lesions NECK: no adenopathy, no asymmetry, masses, or scars and thyroid normal to palpation RESP: lungs clear to auscultation - no rales, rhonchi or wheezes CV: regular rate and rhythm, normal S1 S2, no S3 or S4, no murmur, click or rub, no peripheral edemaand peripheral pulses strong ABDOMEN: soft, nontender, no hepatosplenomegaly, no masses and bowel sounds normal MS: no gross musculoskeletal defects noted, no edema SKIN: no suspicious lesions or rashes NEURO: Normal strength and tone, mentation intact and speech normal PSYCH: mentation appears normal, affect normal/bright Office Visit on 09/26/2020 Component Date Value Ref Range Status ??? Uric Acid 09/26/2020 7.0* 2.6 - 6.0 mg/dL Final documented in this encounter Plan of Treatment Upcoming Encounters Date Type Specialty Care Team Description 10/26/2022 Lab Oncology Yris Perez MD [address] [place] [id number] (Wo rk) 11/03/2022 Oncology Visit Oncology Yris Perez MD [address] [address] (Wo rk) Scheduled Referrals Name Type Priority Associated Diagnoses Order S chedule Adult Gastro Ref - Referral Routine: Next Encounter for Expecte d: Procedure Only available opening preventive health examination (Approximate), Expires: 08/05/2022 documented as of this encounter Procedures Procedure Name Priority Date/Time Associated Comments Diagnosis CBC WITH PLATELETS AND Routine 08/05/2021 9:07 AM Encounter fo r Results for this DIFFERENTIAL CDT preventive health procedure are in examination the results section. CBC WITH PLATELETS & Routine 08/05/2021 9:07 AM Encounter for Results for this DIFFERENTIAL CDT preventive health procedure are in examination the results section. URIC ACID Routine 08/05/2021 9:07 AM Encounter for Results for this CDT preventive health procedure are in examination the results section. TSH WITH FREE T4 Routine 08/05/2021 9:07 AM Encounter for Resu lts for this REFLEX CDT preventive health procedure are in examination the results section. LIPID REFLEX TO DIRECT Routine 08/05/2021 9:07 AM Encounter fo r Results for this LDL PANEL CDT preventive health procedure are in examination the results section. COMPREHENSIVE Routine 08/05/2021 9:07 AM Encounter for Results for this METABOLIC PANEL CDT preventive health procedu re are in examination the results section. documented in this encounter Results (ABNORMAL) CBC with platelets and differential (08/05/2021 9:07 AM CDT) [facility] gist Method Time Signature WBC Count 7.7 4.0 - 08/05/2021 [facility] 11.0 10:08 AM CDT 10e3/uL RBC Count 4.74 3.80 - 08/05/2021 [facility] 5.20 10:08 AM CDT 10e6/uL Hemoglobin 15.9 (H) 11.7 - 08/05/2021 [facility] 15.7 g/dL 10:08 AM CDT Hematocrit 46.2 35.0 - 08/05/2021 [facility] 47.0 % 10:08 AM CDT MCV 98 78 - 100 08/05/2021 [facility] fL 10:08 AM CDT MCH 33.5 (H) 26.5 - 08/05/2021 [facility] 33.0 pg 10:08 AM CDT MCHC 34.4 31.5 - 08/05/2021 [facility] 36.5 g/dL 10:08 AM CDT RDW 14.3 10.0 - 08/05/2021 [facility] 15.0 % 10:08 AM CDT Platelet Count 224 150 - 450 08/05/2021 [facility] 10e3/uL 10:08 AM CDT % Neutrophils 62 % 08/05/2021 [facility] 10:08 AM CDT % Lymphocytes 21 % 08/05/2021 [facility] 10:08 AM CDT % Monocytes 12 % 08/05/2021 [facility] 10:08 AM CDT % Eosinophils 4 % 08/05/2021 [facility] 10:08 AM CDT % Basophils 1 % 08/05/2021 [facility] 10:08 AM CDT Absolute 4.8 1.6 - 8.3 08/05/2021 [facility] Neutrophils 10e3/uL 10:08 AM CDT Absolute 1.6 0.8 - 5.3 08/05/2021 [facility] Lymphocytes 10e3/uL 10:08 AM CDT Absolute 0.9 0.0 - 1.3 08/05/2021 [facility] Monocytes 10e3/uL 10:08 AM CDT Absolute 0.3 0.0 - 0.7 08/05/2021 [facility] Eosinophils 10e3/uL 10:08 AM CDT Absolute 0.1 0.0 - 0.2 08/05/2021 [facility] Basophils 10e3/uL 10:08 AM CDT Specimen Anatomical Collection Method / Collection Time Recei caitlin Time (Source) Location / Volume Laterality Blood STRUCTURE OF RIGHT Venipuncture / 08/05/2021 9:07 /2 11/2020 9:07 UPPER LIMB / Unknown AM CDT AM CDT Unknown Chan Duke MD LAB - BLOOD ORDERABLES Performing Organization Address City/State/ZIP Code Phon [place] [address] Lab [address] [facility], [address] [place] [address], [phone] [facility] [address] [facility], [address] Uric acid (08/05/2021 9:07 AM CDT) P athologist Signature Uric Acid 4.5 2.6 - 6.0 08/05/2021 [facility] mg/dL 1:52 PM CDT Specimen Anatomical Collection Method / Collection Time Recei caitlin Time (Source) Location / Volume Laterality Blood STRUCTURE OF RIGHT Venipuncture / 08/05/2021 9:07 07/17 9:07 UPPER LIMB / Unknown AM CDT AM CDT Unknown Chan Duke MD LAB - BLOOD ORDERABLES Performing Organization Address City/State/ZIP Code Phon e Number [facility] [place], [place] [phone] [place] [facility] [phone] [place] [address] Lab (no room number, 1st floor of clinic) OX LABORATORY [place], [place] [phone] [facility] [place] [phone], [facility] [place] [facility] [address] Lab (no room number, 1st floor of clinic) (ABNORMAL) Lipid panel reflex to direct LDL Fasting (08/05/2021 9:07 AM CDT) Patholo gist Method Time Signature Cholesterol 221 (H) <200 08/05/2021 [facility] mg/dL 1:52 PM CDT Triglycerides 152 (H) <150 08/05/2021 [facility] mg/dL 1:52 PM CDT Direct Measure 56 >=50 08/05/2021 [facility] HDL mg/dL 1:52 PM CDT LDL Cholesterol 135 (H) <=100 08/05/2021 [facility] Calculated mg/dL 1:52 PM CDT Non HDL 165 (H) <130 08/05/2021 [facility] Cholesterol mg/dL 1:52 PM CDT Patient Fasting > Yes 08/05/2021 [facility] RY 8hrs? 1:52 PM CDT Specimen Anatomical Collection Method / Collection Time Recei caitlin Time (Source) Location / Volume Laterality Blood STRUCTURE OF RIGHT Venipuncture / 08/05/2021 9:07 07/17 9:07 UPPER LIMB / Unknown AM CDT AM CDT Unknown Narrative [facility] - 08/05/2021 1:52 PM CDT Cholesterol Desirable: ??<200 mg/dL Triglycerides Normal: ??Less than 150 mg/dL Borderline High: ??150-199 mg/dL High: ??200-499 mg/dL Very High: ??Greater than or equal to 50 0 mg/dL Direct Measure HDL Female: ??Greater than or equal to 50 mg /dL Male: ??Greater than or equal to 40 mg/d L LDL Cholesterol Desirable: ??<100mg/dL Above Desirable: ??100-129 mg/dL Borderline High: ??130-159 mg/dL High: ??160-189 mg/dL Very High: ??>= 190 mg/dL Non HDL Cholesterol Desirable: ??130 mg/dL Above Desirable: ??130-159 mg/dL Borderline High: ??160-189 mg/dL High: ??190-219 mg/dL Very High: ??Greater than or equal to 22 0 mg/dL Chan Duke MD LAB - BLOOD ORDERABLES Performing Organization Address City/[facility] Phon e Number OX LABORATORY [place], [place] [phone] [place] [facility] [phone] [place] [address] Lab (no room number, 1st floor of clinic) OX LABORATORY [place], [place] [phone] [facility] [phone] [place] [facility] [address] Lab (no room number, 1st floor of clinic) TSH with free T4 reflex (08/05/2021 9:07 AM CDT) P athologist Signature TSH 2.11 0.40 - 4.00 08/05/2021 [facility] mU/L 1:59 PM CDT Specimen Anatomical Collection Method / Collection Time Recei caitlin Time (Source) Location / Volume Laterality Blood STRUCTURE OF RIGHT Venipuncture / 08/05/2021 9:07 07/17 9:07 UPPER LIMB / Unknown AM CDT AM CDT Unknown Chan Duke MD LAB - BLOOD ORDERABLES Performing Organization Address [facility] Phon e Number OX LABORATORY [place], [place] [phone] [place] [facility] [phone] Lab (no room number, 1st floor of [facility]) OX LABORATORY [place], [place] [phone] [facility] [phone] [facility] [address] Lab (no room number, 1st floor of [facility]) (ABNORMAL) Comprehensive metabolic panel (BMP + Alb, Alk Phos, ALT, AST, Total. Bili, TP) (08/05/2021 9:07 AM CDT) [facility] Method Time Signature Sodium 140 133 - 144 08/05/2021 [facility] mmol/L 1:52 PM CDT Potassium 4.6 3.4 - 5.3 08/05/2021 [facility] mmol/L 1:52 PM CDT Chloride 104 94 - 109 08/05/2021 [facility] mmol/L 1:52 PM CDT Carbon Dioxide 29 20 - 32 08/05/2021 [facility] (CO2) mmol/L 1:52 PM CDT Anion Gap 7 3 - 14 08/05/2021 [facility] mmol/L 1:52 PM CDT Urea Nitrogen 15 7 - 30 08/05/2021 [facility] mg/dL 1:52 PM CDT Creatinine 1.07 (H) 0.52 - 08/05/2021 [facility] 1.04 1:52 PM CDT mg/dL Calcium 9.3 8.5 - 08/05/2021 [facility] 10.1 1:52 PM CDT mg/dL Glucose 105 (H) 70 - 99 08/05/2021 [facility] mg/dL 1:52 PM CDT Alkaline 79 40 - 150 08/05/2021 [facility] Phosphatase U/L 1:52 PM CDT AST 34 0 - 45 08/05/2021 [facility] U/L 1:52 PM CDT ALT 61 (H) 0 - 50 08/05/2021 [facility] U/L 1:52 PM CDT Protein Total 7.2 6.8 - 8.8 08/05/2021 [facility] g/dL 1:52 PM CDT Albumin 4.1 3.4 - 5.0 08/05/2021 [facility] g/dL 1:52 PM CDT Bilirubin Total 0.7 0.2 - 1.3 08/05/2021 [facility] mg/dL 1:52 PM CDT GFR Estimate 52 (L) >60 08/05/2021 [facility] mL/min/1. 1:52 PM CDT 73m2 Comment: As of May 25, 2021, eGFR is ca lculated by the CKD-EPI creatinine equation, without race adjustment. eGFR can be inf luenced by muscle mass, exercise, and diet. The reported eGFR is an estimation only and is only applicable if the renal function is stable. Specimen Anatomical Collection Method / Collection Time Recei caitlin Time (Source) Location / Volume Laterality Blood STRUCTURE OF RIGHT Venipuncture / 08/05/2021 9:07 09/2 11/2020 9:07 UPPER LIMB / Unknown AM CDT AM CDT Unknown Chan Duke MD LAB - BLOOD ORDERABLES Performing Organization Address City/State/ZIP Code Phon e Number OX LAB[facility]ATORY [facility] - [place], [place] [phone] [place] [facility] [phone] [place] [address] Lab (no room number, 1st floor of clinic) OX LABORATORY [place], [place] [phone] 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
--- OUTSIDE RECORDS SUMMARY | 2022-08-20 14:23 | XMS_ITS | Encounter Summary ---
:1945 Author Organization [place] Address [address] [facility] [place] [address] Care Team Providers Name Role Phone Jordin Allred Amari DPJanelle Unavailable Chan Duke MD Primary Care Provider Chan Duke MD Unavailable Aaron Garcia MD Unavailable Yris Perez MD Unavailable [phone] Encounter Details Date Type Department Care Team Description 10/06/2021 PRE VISIT [facility] Cancer Aaron Garcia MD [facility] [address] [facility] [address] [facility] [address] [place] [address] [facility] Medical Ctr [place] [address] Social History Tobacco Use Types Packs/Day Years [...] with No / Unsure 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, 01/08/2017 9 06/08/17, 08/26/17 documented as of this encounter Care Teams Health And Safety Manager Relationship Specialty Start Date End Date Chan Duke MD PCP - General Internal Medicine 08/21/[address] [place] [address] [place], [place] [phone] Jordin Allred, Assigned Musculoskeletal 03/02/21 DPM Provider [address] [facility] [address] [place], [place] [phone] Chan Duke MD Assigned PCP 08/24/[address] [place] [place], [place] [phone] Aaron Garcia Assigned Cancer Care 10/12/21 05/15/22 MD Max Provider 500 [place], [place] [phone] Yris Perez Assigned Cancer Care 05/16/22 MD Ingrid Provider [address] [address] documented as of this encounter
--- OUTSIDE RECORDS SUMMARY | 2022-08-20 14:24 | XMS_ITS | Encounter Summary ---
:1945 Author Organization [place] Address formerly [facility] [place] [address] Care Team Providers Name Role Phone Simon Claros MD Primary Care Provider Simon Claros MD Unavailable Reason for Visit Reason Comments Vomiting Constipation Encounter Details Date Type Department Care Team Description 08/22/2020 [facility] Erasmo Mendez [facility] [address] [facility] [place] [id number] [place] [phone] [place] [id number] (Wo rk) Social History Tobacco Use Types [...] been in contact with No / Unsure 08/22/2020 3:28 PM CDT someone who was confirmed or suspected to have Coronavirus / COVID-19? documented as of this encounter Last Filed Vital Signs Vital Sign Reading Time Taken Comments Blood Pressure 142/68 08/22/2020 7:54 PM CDT Pulse 77 08/22/2020 7:54 PM CDT Temperature 36.3 ??C (97.4 ??F) 08/22/2020 7:54 PM CDT Respiratory Rate 15 08/22/2020 7:54 PM CDT Oxygen Saturation 98% 08/22/2020 7:54 PM CDT Inhaled Oxygen Concentration - - Weight - - Height - - Body Mass Index - - documented in this encounter Discharge Instructions Discharge InstructionsErasmo Mendez DO - 08/22/2020 8:09 PM CDT Return to the emergency department or seek medical care as instructed if your symptoms fail to improve or significantly worsen. Take Acetaminophen (aka Tylenol) or [place] (prescription pain medicine) and/or ibuprofen (aka Motrin/Advil, 600mg up to 4 times per day with food) as needed for symptom/pain relief; use as directed. Take zofran as need for nausea; use as directed. Take Imodium as needed for diarrhea Ice area of pain for 20 minutes four times per day for the next two days Take antibiotics as prescribed; complete entire course as directed. Apply over the counter antibiotic ointment to laceration twice daily for two days. Follow-up as indicated on page 1. Maintain adequate hydration and get plenty of rest. AttachmentsThe following attachments cannot be sent through Care Everywhere. Diverticulitis (Montserratian)documented in this encounter Medications at Time of Discharge Medication Sig Dispensed Refills Start Date End Date albuterol (PROAIR HFA) INHALE 2 PUFFS 4 8.5 Inhaler 11 2019 108 (90 Base) MCG/ACT TIMES A DAY inhalerIndications: NEEDED Chronic obstructive pulmonary disease, unspecified COPD type (H) calcium carbonate Take 1 tablet by 0 (OS-ROSALINO) 500 MG tablet mouth daily Cholecalciferol (VITAMIN Take 2,000 Units by 0 D3 PO) mouth daily loratadine (CLARITIN) 10 Take 10 mg by mouth 0 MG tablet amoxicillin-clavulanate Take 1 tablet by 14 tablet 0 201908/29/2020 (AUGMENTIN) 875-125 MG mouth 2 times daily tablet for 7 days allopurinol (ZYLOPRIM) Take 1 tablet (300 90 tablet 2 08/0909/02/2021 300 MG mg) by mouth daily tabletIndications: Acute idiopathic gout of left foot ANASTROZOLE PO Take 1 mg by mouth 0 daily COMPOUNDED Estradiol 0.02% in 84 g 1 03/05/20202020 NON-CONTROLLED SUBSTANCE HRT base. SIG: (CMPD RX) - PHARMACY TO Apply 1 gram MIX COMPOUNDED vaginally three MEDICATION times weekly. ESTRADIOL PO 0 09/26/2020 magnesium 250 MG tablet Take 1 tablet by 0 01/13/2021 mouth daily ondansetron (ZOFRAN ODT) Take 1 tablet (4 10 tablet 0 08/2209/26/2020 4 MG ODT tab mg) by mouth every 6 hours as needed for nausea or vomiting UNABLE TO FIND MEDICATION NAME: 0 11/2020 cranberry pills documented as of this encounter ED Notes Debi Singh RN - 08/22/2020 8:38 PM CDT Pt called and spoke with our [facility] on 2020 at 1245. I called in the prescriptions for Zofran andAugmentin to [facility] on [address] in [place]. Their phonenumber is [phone] Luanne Jacobs RN - 08/22/2020 8:37 PM CDT Patient tolerated water and augmentin tab. Luanne Jacobs RN - 08/22/2020 7:53 PM CDT Pt put on antibiotics yesterday by her PCP for diverticulitis. Today pt began to feel constipated and had multiple episodes of vomiting. Patient stated last BM was yesterday. Patient had LLQ abdominal pain over last few days- denies pain at this time. Chely Garza RN - 08/22/2020 3:[address] Claros yesterday and has SBO was put on antibiotics yesterday. Pt states she is not feeling better. Erasmo Mendez, - 08/22/2020 3:28 PM CDT History Chief Complaint Vomiting and Constipation The history is provided by the patient. Darshana Brooks is a 74 year old female with a history of breast cancer and COPD who presents for evaluation of left lower abdominal pain for the past 5 days accompanied by nausea and emesis that begantoday. The patient saw Dr. Claros yesterday for her abdominal pain and an XR of her abdomen showed lots of stool in the large intestine (full results below). She was empirically treated for diverticulitis with Cipro and Flagyl. She took two doses of the antibiotics yesterday and one today. She has also been taking Miralax. Despite this, the patient has not been able to have a bowel movement or pass gas since yesterday morning. Although, she does not have any abdominal distention. Today, overall, the abdominal pain is improved, rated as 1-2/10 in severity, however she has been vomiting since late morning today, once every half hour. She's also had dry heaves 5x today and decreased appetite. Her nausea and vomiting decreased around 315 PM. She reports a low grade fever at the onset of her symptoms, a few days ago, but states it was never above 100 F. She has a mild cough, but no chest pain, shortness of breath, leg swelling, hives, and wheezing. She had a COVID test done 4 days ago that came back negative. She also denies urinary symptoms including frequency, urgency, and dysuria. Her only previous abdominal surgery is a hysterectomy. XR ABDOMEN TWO VIEWS 08/21/2020 3:14 PM: IMPRESSION: Nonobstructive gas pattern. Moderate volume retained colonic stool. No free air, organomegaly, or abnormal calculus. Right hip replacement. ZAY RODRÍGUEZ MD Allergies Sulfamethoxazole Chlorhexidine Gluconate [Chlorhexidine] Latex Medications Albuterol inhaler Allopurinol Anastrozole Cipro and Flagyl Past Medical History Breast cancer COPD Past Surgical History Right hip arthroplasty Right node sentinel Hysterectomy Lumpectomy breath with seed localization right Family History Mother - diabetes, hypertension Father - diabetes, asthma Sister - Breast cancer Brother - cancer Social History The patient was accompanied to the ED by her . Smoking Status: passive smoke exposure Smokeless Tobacco: never Alcohol Use: no Drug Use: no Review of Systems Constitutional: Positive for appetite change. Respiratory: Positive for cough. Negative for shortness of breath and wheezing. Cardiovascular: Negative for chest pain and leg swelling. Gastrointestinal: Positive for abdominal pain, constipation, nausea and vomiting. Negative for abdominal distention. Genitourinary: Negative for dysuria, frequency and urgency. Skin: Negative for rash. All other systems reviewed and are negative. Physical Exam Patient Vitals for the past 24 hrs: BP Temp Temp src Pulse Resp SpO2 08/22/20 1954 (!) 142/68 97.4 ??F (36.3 ??C) Oral 77 15 98 % 08/22/20 1535 (!) 173/69 97.3 ??F (36.3 ??C) Oral 80 16 97 % Physical Exam General: Alert and cooperative with exam. Patient in mild distress. Normal mentation. Head: Scalp is NC/AT Eyes: No scleral icterus, PERRL ENT: The external nose and ears are normal. The oropharynx is normal and without erythema; mucus membranes are moist. Uvula midline, no evidence of deep space infection. Neck: Normal range of motion without rigidity. CV: Regular rate and rhythm No pathologic murmur Resp: Breath sounds are clear bilaterally Non-labored, no retractions or accessory muscle use GI: Mild LLQ TTP. Abdomen is soft, no distension. No peritoneal signs MS: No lower extremity edema Skin: Warm and dry, No rash or lesions noted. Neuro: Oriented x 3. No gross motor deficits. Emergency Department Course Imaging: Radiology findings were communicated with the patient who voiced understanding of the findings. CT abdomen pelvis w contrast: IMPRESSION: 1. ??Acute diverticulitis distal descending colon left lower quadrant of the abdomen. No associated abscess or free intraperitoneal air. 2. ??Fatty infiltration of the liver and stable right hepatic lobe cyst which is likely benign. No further follow-up suggested. Readings per Radiology Laboratory: Laboratory findings were communicated with the patient who voiced understanding of the findings. CBC: AWNL (WBC 8.8, HGB 14.6, PLT 263) CMP: glucose 117 (H), GFR estimate 60 (L) o/w WNL (Creatinine 0.94) Interventions: 1850 NS 1L IV Bolus Emergency Department Course: Past medical records, nursing notes, and vitals reviewed. 183 I physically examined the patient as documented above. IV was inserted and blood was drawn for laboratory testing, results above. The patient was sent for radiographs while in the emergency department, results above. 1954 I rechecked the patient and discussed the findings of their workup thus far. Findings and plan explained to the Patient. Patient discharged home with instructions regarding supportive care, medications, and reasons to return. The importance of close follow-up was reviewed. The patient was prescribed Augmentin and Zofran. I personally reviewed the laboratory and imaging results with the Patient and answered all related questions prior to discharge. Impression & Plan Medical Decision Making: Darshana Brooks is a 75 year old female who presents for evaluation of abdominal pain. A broad differential diagnosis was considered and CT confirms diverticulitis without abscess or perforation; this appears consistent with the history and physical exam so I doubt another underlying etiology is also p resent. The patient's pain has been controlled by interventions in the emergency department. This represents uncomplicated diverticulitis at this time. There are no signs of sepsis, shock or bacteremia. The natural history of this problem was discussed, and I educated the patient regarding the symptoms and signs that should prompt return to the Emergency Department. This would include worsening fevers, chills, vomiting, and more intense pain. The patient is to take antibiotics and pain medications as directed. Follow-up with primary care physician is indicated in 2-3 days. Patient had been started empirically on Cipro/Flagyl by her PCP though notes concern for intolerance to these medications. Transitioned to Augmentin. Provided prescription for Zofran for nausea. Patient tolerating oral intake and well-appearing at time of discharge. Diagnosis: ICD-10-CM 1. Diverticulitis K57.92 Disposition: Discharged to home. Discharge Medications: New Prescriptions AMOXICILLIN-CLAVULANATE (AUGMENTIN) 875-125 MG TABLET Take 1 tablet by mouth 2 times daily for 7 days ONDANSETRON (ZOFRAN ODT) 4 MG ODT TAB Take 1 tablet (4 mg) by mouth every 6 hours as needed for nausea or vomiting Scribe Disclosure: I, Nayla Montes, am serving as a scribe at 6:28 PM on 08/22/2020 to document services personally performed by Erasmo Mendez DO based on my observations and the provider's statements to me. Erasmo Mendez DO 08/23/20 1256 documented in this encounter Plan of Treatment Upcoming Encounters Date Type Specialty Care Team Description 10/26/2022 Lab Oncology Yris Perez MD [address] [id number] (Wo rk) 11/03/2022 Oncology Visit Oncology Yris Perez MD [address] [address] (Wo rk) documented as of this encounter Procedures Procedure Name Priority Date/Time Associated Comments Diagnosis CT ABDOMEN PELVIS W STAT 08/22/2020 7:38 PM Re sults for this CONTRAST CDT procedure are i n the results section. CBC WITH PLATELETS & STAT 08/22/2020 5:48 PM R esults for this DIFFERENTIAL CDT procedure are i n the results section. COMPREHENSIVE STAT 08/22/2020 5:48 PM Results for this METABOLIC PANEL CDT procedure ar e in the results section. documented in this encounter Results CT Abdomen Pelvis w Contrast (08/22/2020 7:38 PM CDT) Anatomical Region Laterality Modality Abdomen/Pelvis, SUBRAD CT BODY, UMP CT ABDOMEN PELVIS, Computed Tomography RAD CT Specimen (Source) Anatomical Location Collection Method / Collectio n Time Received Time / Laterality Volume Impressions 08/22/2020 7:54 PM CDT IMPRESSION: 1. ??Acute diverticulitis distal descend ing colon left lower quadrant of the abdomen. No associated abscess or free intraperitoneal air. 2. ??Fatty infiltration of the liver and stable right hepatic lobe cyst which is likely benign. No further follo w-up suggested. KM VILLALTA MD Narrative 08/22/2020 7:[address] ABDOMEN PELVIS WITH CONTRAST 08/22/2020 7:38 PM CLINICAL HISTORY: Left lower quadrant pa in, no bowel movement, rule out diverticular diagnosis or small-myra l obstruction. ?? TECHNIQUE: CT scan of the abdomen and pe lvis was performed following injection of IV contrast. Multiplanar re formats were obtained. Dose reduction techniques were used. CONTRAST: 72 mL Isovue-370 COMPARISON: CT abdomen pelvis 11/12/2017 . FINDINGS: LOWER CHEST: Lung bases are clear. HEPATOBILIARY: There is diffuse fatty in filtration of the liver with an anterior right hepatic lobe cyst. Gal lbladder is unremarkable. PANCREAS: Normal. SPLEEN: Normal. ADRENAL GLANDS: Normal. KIDNEYS/BLADDER: Normal. BOWEL: No bowel obstruction. Acute diver ticular inflammation noted in the distal descending colon in the left lower quadrant of the abdomen on series 4, image 119. No associated ab scess or free intraperitoneal air. Appendix is normal. LYMPH NODES: No enlarged abdominal or pe lvic lymph nodes. VASCULATURE: Unremarkable. PELVIC ORGANS: The bladder and rectum ar e unremarkable. Uterus not identified. No pelvic mass or free fluid is appreciated. Artifact through the right hemipelvis is related to right hip replacement hardware. ADDITIONAL FINDINGS: None. MUSCULOSKELETAL: Normal. Procedure Note Km Villalta MD - 08/22/2020Form atting of this note might be different from the original. CT ABDOMEN PELVIS WITH CONTRAST 0 7:38 PM CLINICAL HISTORY: Left lower quadrant pa in, no bowel movement, rule out diverticular diagnosis or small-myra l obstruction. TECHNIQUE: CT scan of the abdomen and pe lvis was performed following injection of IV contrast. Multiplanar re formats were obtained. Dose reduction techniques were used. CONTRAST: 72 mL Isovue-370 COMPARISON: CT abdomen pelvis 11/12/2017 . FINDINGS: LOWER CHEST: Lung bases are clear. HEPATOBILIARY: There is diffuse fatty in filtration of the liver with an anterior right hepatic lobe cyst. Gal lbladder is unremarkable. PANCREAS: Normal. SPLEEN: Normal. ADRENAL GLANDS: Normal. KIDNEYS/BLADDER: Normal. BOWEL: No bowel obstruction. Acute diver ticular inflammation noted in the distal descending colon in the left lower quadrant of the abdomen on series 4, image 119. No associated ab scess or free intraperitoneal air. Appendix is normal. LYMPH NODES: No enlarged abdominal or pe lvic lymph nodes. VASCULATURE: Unremarkable. PELVIC ORGANS: The bladder and rectum ar e unremarkable. Uterus not identified. No pelvic mass or free fluid is appreciated. Artifact through the right hemipelvis is related to right hip replacement hardware. ADDITIONAL FINDINGS: None. MUSCULOSKELETAL: Normal. IMPRESSION: 1. Acute diverticulitis distal descendin g colon left lower quadrant of the abdomen. No associated abscess or free intraperitoneal air. 2. Fatty infiltration of the liver and s table right hepatic lobe cyst which is likely benign. No further follo w-up suggested. KM VILLALTA MD Erasmo Zarate [place] DO IMG CT ORDERABLES (ABNORMAL) Comprehensive metabolic panel (08/22/2020 5:48 PM CDT) athologist Signature Sodium 136 133 - 144 08/22/2020 [place] mmol/L 6:14 PM [facility] Potassium 4.2 3.4 - 5.3 08/22/2020 [place] mmol/L 6:14 PM [facility] Chloride 105 94 - 109 08/22/2020 [place] mmol/L 6:14 PM [facility] Carbon Dioxide 27 20 - 32 08/22/2020 [place] mmol/L 6:20 PM [facility] Anion Gap 4 3 - 14 08/22/2020 [place] mmol/L 6:20 PM [facility] Glucose 117 (H) 70 - 99 08/22/2020 [place] mg/dL 6:20 PM [facility] Urea Nitrogen 19 7 - 30 08/22/2020 [place] mg/dL 6:20 PM [facility] Creatinine 0.94 0.52 - 08/22/2020 [place] 1.04 mg/dL 6:20 PM [facility] GFR Estimate 60 (L) >60 08/22/2020 [place] mL/min/{1. 6:20 PM [facility] 73_m2} [facility] Comment: Non GFR Calc Starting 11/01/2018, serum creatinine ba sed estimated GFR (eGFR) will be calculated using the Chronic Kidney Dise [facility] Epidemiology Collaboration (CKD-EPI) equation. GFR Estimate If 69 >60 mL/min/{1.73_m2} 08/22/2020 6: 20 PM [facility] Comment: GFR Calc Starting 11/01/2018, serum creatinine ba sed estimated GFR (eGFR) will be calculated using the Chronic Kidney Dise [facility] Epidemiology Collaboration (CKD-EPI) equation. Calcium 8.9 8.5 - 10.1 mg/dL 08/22/2020 6:20 PM [facility] Bilirubin Total 0.6 0.2 - 1.3 mg/dL 08/22/2020 6:22 PM [facility] Albumin 4.0 3.4 - 5.0 g/dL 08/22/2020 6:22 PM [facility] Protein Total 7.9 6.8 - 8.8 g/dL 08/22/2020 6:22 PM [facility] Alkaline Phosphatase 92 40 - 150 U/L 08/22/2020 6:22 PM [facility] ALT 41 0 - 50 U/L 08/22/2020 6:22 PM [facility] AST 27 0 - 45 U/L 08/22/2020 6:22 PM [facility] Specimen Anatomical Collection Method Collection Time Receive d Time (Source) Location / / Volume Laterality Blood specimen 08/22/2020 5:48 PM 020 5:59 (specimen) CDT PM CDT Erasmo Mendez DO LAB - BLOOD ORDERABLES Performing Organization Address City/State/ZIP Code Phon e Number M [facility] [address] [phone] [facility] [address] [address], [place] [phone] CBC with platelets differential (08/22/2020 5:48 PM CDT) [facility] Method Time Signature WBC 8.8 4.0 - 08/22/2020 [place] 11.0 6:02 PM [facility] 10e9/L [facility] RBC Count 4.43 3.8 - 5.2 08/22/2020 [place] 10e12/L 6:02 PM [facility] Hemoglobin 14.6 11.7 - 08/22/2020 [place] 15.7 g/dL 6:02 PM [facility] Hematocrit 42.9 35.0 - 08/22/2020 [place] 47.0 % 6:02 PM [facility] MCV 97 78 - 100 08/22/2020 [facility] fl 6:02 PM [facility] MCH 33.0 26.5 - 08/22/2020 [facility] 33.0 pg 6:02 PM [facility] MCHC 34.0 31.5 - 08/22/2020 [facility] 36.5 g/dL 6:02 PM [facility] RDW 13.6 10.0 - 08/22/2020 [facility] 15.0 % 6:02 PM [facility] Platelet Count 263 150 - 450 08/22/2020 [facility] 10e9/L 6:02 PM [facility] Diff Method Automated 08/22/2020 [facility] Method 6:02 PM [facility] % Neutrophils 85.7 % 08/22/2020 [facility] 6:02 PM [facility] % Lymphocytes 9.8 % 08/22/2020 [facility] 6:02 PM [facility] % Monocytes 4.2 % 08/22/2020 [facility] 6:02 PM [facility] % Eosinophils 0.0 % 08/22/2020 [facility] 6:02 PM [facility] % Basophils 0.2 % 08/22/2020 [facility] 6:02 PM [facility] % Immature 0.1 % 08/22/2020 [facility] Granulocytes 6:02 PM [facility] Nucleated RBCs 0 0 /100 08/22/2020 [facility] 6:02 PM [facility] Absolute 7.5 1.6 - 8.3 08/22/2020 [facility] Neutrophil 10e9/L 6:02 PM [facility] Absolute 0.9 0.8 - 5.3 08/22/2020 [facility] Lymphocytes 10e9/L 6:02 PM [facility] Absolute 0.4 0.0 - 1.3 08/22/2020 [facility] Monocytes 10e9/L 6:02 PM [facility] Absolute 0.0 0.0 - 0.7 08/22/2020 [facility] Eosinophils 10e9/L 6:02 PM [facility] Absolute 0.0 0.0 - 0.2 08/22/2020 [facility] Basophils 10e9/L 6:02 PM [facility] Abs Immature 0.0 0 - 0.4 08/22/2020 [place] Granulocytes 10e9/L 6:02 PM CDT [facility] Absolute 0.0 08/22/2020 [place] Nucleated RBC 6:02 PM CDT [facility] Specimen Anatomical Collection Method Collection Time Receive d Time (Source) Location / / Volume Laterality Blood specimen 08/22/2020 5:48 PM 020 5:59 (specimen) CDT PM CDT Erasmo Mendez DO LAB - BLOOD ORDERABLES Performing Organization Address City/State/ZIP Code Phon e Number M [facility] [address] [address] [phone] [facility] [address] [address], [facility] [phone] documented in this encounter Visit Diagnoses Diagnosis Diverticulitis Diverticulitis of colon (without mention of hemorrhage) documented in this encounter Administered Medications Inactive Administered Medications - up to 3 most recent administrations Medication Order MAR Action Action Date Dose Rate Site 0.9% sodium chloride BOLUS New Bag 08/22/2020 6:50 PM CDT 1,000 mLs 1000 mL/hr Intravenous, 1,000 mL, ONCE, at 1,000 mL/hr, Administer over 1 Hours, On Louann 08/22/20 at 1850, For 1 dose amoxicillin-clavulanate (AUGMENTIN) 875-125 Given 06/2020 8:22 PM CDT 1 tablet MG per tablet 1 tablet STAT, 1 tablet, Oral, ONCE, On Louann 08/22/20 at 2010, For 1 dose, Indications: diverticulitis iopamidol (ISOVUE-370) solution 72 mL Given 08/22/2020 7:31 PM CDT 72 mLs 72 mL, Intravenous, ONCE, On Louann 08/22/20 at 1915, For 1 dose Saline Flush - CT Given 08/22/2020 7:31 PM CDT 61 mLs Intravenous, 61 mL, ONCE, On Louann 08/22/20 at 1915, For 1 dose, This entry is for use by Radiology to intermittently used as a flush in patients receiving a CT scan. documented in this encounter Active and Recently Administered Medications Times are shown in CDT. Scheduled Medication Order 08/20/2020 08/21/2020 08/22/2020 0.9% sodium chloride BOLUS (COMPLETED) 185 (New Bag - Provider: Shannon Matthew, ODESSA)2019 (ED Infusing on Admission/transfer - Provider: Luanne Jacobs, ODESSA) Intravenous, 1,000 mL, ONCE, at 1,000 mL /hr, Administer over 1 Hours, On Louann 08/22/20 at 1850, For 1 dose amoxicillin-clavulanate (AUGMENTIN) 875-125 MG per tablet 1 tablet (COMPLETED) 2021 (Given - Provider: Mihir Mace) STAT, 1 tablet, Oral, ONCE, [place] 08/22/20 at 2010, For 1 dose, Indications: diverticulitis iopamidol (ISOVUE-370) solution 72 mL (COMPLETED) 1930 (Given - Provider: Ivette Flores) 72 mL, Intravenous, ONCE, [place] 08/22/20 at 1915, For 1 dose Saline Flush - CT (COMPLETED) (Given - Provider: Ivette Flores) Intravenous, 61 mL, ONCE, [place] 08/22/20 at 1915, For 1 dose, This entry is for use by Radiology to intermittently used as a flush in patients receiving a CT scan. 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
--- OUTSIDE RECORDS SUMMARY | 2022-08-20 14:24 | XMS_ITS | Encounter Summary ---
:1945 Author Organization [place] Address [address] [place] [address] Care Team Providers Name Role Phone Simon Claros MD Primary Care Provider Simon Claros MD Unavailable Deidra Whitehead DPM, Podiatry/Foot and Ankle Unavailable Surgery Reason for Visit Reason Comments RECHECK Encounter Details Date Type Department Care Team Description 09/26/2020 Office Visit [facility] Simon Claros, Chroni c obstructive pulmonary disease, unspecified COPD type (H) (Primary Dx); Clinic [facility] HINES Malignant neoplasm of female breast, uns pecified estrogen receptor status, unspecified laterality, unspecified site of breast (H); [address] Diverticu litis of colon; [place], [address] Benign essential hypertension; [place] [address] [place] [place] Acute idiopathic gout of lef t foot [phone] Social History Tobacco Use Types Packs/Day [...] been in contact with No / Unsure 09/26/2020 1:49 PM NURSING EDUCATION SPECIALIST someone who was confirmed or suspected to have Coronavirus / COVID-19? documented as of this encounter Last Filed Vital Signs Vital Sign Reading Time Taken Comments Blood Pressure 136/77 09/26/2020 2:16 PM NURSING EDUCATION SPECIALIST Pulse 69 09/26/2020 2:16 PM NURSING EDUCATION SPECIALIST Temperature 36.1 ??C (96.9 ??F) 09/26/2020 2:16 PM NURSING EDUCATION SPECIALIST Respiratory Rate - - Oxygen Saturation 99% 09/26/2020 2:16 PM NURSING EDUCATION SPECIALIST Inhaled Oxygen Concentration - - Weight 65.4 kg (144 lb 1.6 oz) 09/26/2020 2:16 PM NURSING EDUCATION SPECIALIST Height 167.6 cm (5' 6) 09/26/2020 2:16 PM NURSING EDUCATION SPECIALIST Body Mass Index 23.26 09/26/2020 2:16 PM NURSING EDUCATION SPECIALIST documented in this encounter Progress Notes Simon Claros MD - 09/26/2020 2:00 PM CST Subjective Darshana Brooks is a 75 year old female who presents to clinic today for the following health issues: HPI Follow up diverticulitis Patient is having no significant left lower quadrant discomfort, she has completed her antibiotics and she has advanced her diet including vegetables etc. I recommended that she cut back to eating a soft bland diet avoiding raw vegetables, seeds and nuts. After 1 month she can gradually increase her diet back to a regular diet. She will schedule her self for a colonoscopy. She is having no other problems. I suggested that she maintain her current body weight and avoid losing more weight. She wonders whether she needs to continue her allopurinol which she is already discontinued and is having some issues with her left foot. Review of Systems Constitutional, HEENT, cardiovascular, pulmonary, gi and gu systems are negative, except as otherwise noted. Objective BP 136/77 (BP Location: Right arm, Patient Position: Sitting, Cuff Size: Adult Regular) Pulse 69 Temp 96.9 ??F (36.1 ??C) (Temporal) Ht 1.676 m (5' 6) Wt 65.4 kg (144 lb 1.6 oz) SpO2 99% BMI 23.26 kg/m?? Body mass index is 23.26 kg/m??. Physical Exam GENERAL: healthy, alert and no distress NECK: no adenopathy, no asymmetry, masses, or [...] no gross musculoskeletal defects noted, no edema Left foot no significant swelling or signs of tenosynovitis Assessment & Plan 1. Chronic obstructive pulmonary disease, unspecified COPD type (H) No current issues with her breathing and she will continue using allopurinol as needed. 2. Malignant neoplasm of female breast, unspecified estrogen receptor status, unspecified laterality, unspecified site of breast (H) No ongoing issues with her breast cancer and she will continue following with oncology. 3. Diverticulitis of colon Resolve the acute episode. Recommended diet changes as noted above and follow-up with a colonoscopy. 4. Benign essential hypertension Well-controlled with current therapy, resume normal activities and continue her same medications. 5. Acute idiopathic gout of left foot Reevaluate uric acid level and adjust allopurinol accordingly - Uric acid FUTURE APPOINTMENTS: - Follow-up visit in 2 mo No follow-ups on file. Simon Claros MD [facility] ING EDUCATION SPECIALIST documented in this encounter Plan of Treatment Upcoming Encounters Date Type Specialty Care Team Description 10/26/2022 Lab Oncology Yris Perez MD [address] [id number] (Wo hitesh) 11/03/2022 Oncology Visit Oncology Yris Perez MD [address] [id number] (Wo hitesh) documented as of this encounter Procedures Procedure Name Priority Date/Time Associated Diagnosis Comme nts URIC ACID Routine 09/26/2020 2:47 PM Acute idiopathic gout Results for this NURSING EDUCATION SPECIALIST of left foot procedure are i n the results section . documented in this encounter Results (ABNORMAL) Uric acid (09/26/2020 2:47 PM NURSING EDUCATION SPECIALIST) P athologist Signature Uric Acid 7.0 (H) 2.6 - 6.0 09/27/2020 [facility] mg/dL 10:37 [address]UR[address] EDUCATION SPECIALIST [facility] Specimen Anatomical Collection Method Collection Time Receive d Time (Source) Location / / Volume Laterality Blood specimen 09/26/2020 2:47 PM 020 2:52 (specimen) NURSING EDUCATION SPECIALIST PM NURSING EDUCATION SPECIALIST Simon Claros MD LAB - BLOOD ORDERABLES Performing Organization Address City/State/ZIP Code Phon e Number [facility] [address] [place] [address] documented in this encounter Visit Diagnoses Diagnosis Chronic obstructive pulmonary disease, u nspecified COPD type (H) - Primary Malignant neoplasm of female breast, uns pecified estrogen receptor status, unspecified laterality, unspecified site of breast (H) Diverticulitis of colon Diverticulitis of colon (without mention of hemorrhage) Benign essential hypertension Essential hypertension, benign Acute idiopathic gout of left foot documented in this encounter Additional Health Concerns Infection Onset Date Last Indicated Resolved Time 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, 01/08/2017 9 06/08/17, 08/26/17 documented as of this encounter Care Teams Boat Deckhand Relationship Specialty Start Date End Date Simon Claros MD PCP - General Internal Medicine 09/22/12 08/20/21 Simon Claros MD Assigned PCP 06/18/16 03/01/21 [address] [place] [address] Deidra Whitehead DPM, Assigned Musculoskeletal 09/06/20 10/26/20 Podiatry/Foot and Provider Ankle Surgery [address] [place] [address] documented as of this encounter
--- OUTSIDE RECORDS SUMMARY | 2022-08-20 14:24 | XMS_ITS | Encounter Summary ---
:1945 Author Organization [place] Address [facility] [place] [address] Care Team Providers Name Role Phone Simon Claros MD Primary Care Provider Simon Claros MD Unavailable Encounter Details Date Type Department Care Team Description 08/29/2020 Travel Social History Tobacco Use Types Packs/Day [...] been in contact with No / Unsure 08/29/2020 2:32 PM CDT someone who was confirmed or suspected to have Coronavirus / COVID-19? documented as of this encounter Plan of Treatment Upcoming Encounters Date Type Specialty Care Team Description 10/26/2022 Lab Oncology Yris Perez MD [address] [place] [address] (Wo rk) 11/03/2022 Oncology Visit Oncology Yris Perez MD [address] [address] (Wo rk) documented as of this encounter Visit Diagnoses Not on filedocumented in this encounter Additional Health Concerns Infection Onset Date Last Indicated Resolved Time 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, 01/08/2017 9 06/08/17, 08/26/17 documented as of this encounter Care Teams Director Hr Communications Relationship Specialty Start Date End Date Simon Claros MD PCP - General Internal Medicine 09/22/12 08/20/21 Simon Claros MD Assigned PCP 06/18/16 03/01/21 [address] [facility] [address] [place] [address] documented as of this encounter
--- OUTSIDE RECORDS SUMMARY | 2022-08-20 14:24 | XMS_ITS | Encounter Summary ---
:1945 Author Organization [place] Address [address] [facility] [place] [address] Care Team Providers Name Role Phone Simon Claros MD Primary Care Provider Simon Claros MD Unavailable Reason for Visit Reason Comments ER F/U Encounter Details Date Type Department Care Team Description 08/29/2020 Office Visit [facility] Simon Claros, Abdomi nal pain, left lower quadrant (Primary Dx); Clinic [facility] HINES Malignant neoplasm of female breast, uns pecified estrogen receptor status, unspecified laterality, unspecified site of breast (H); [address] Benign es sential hypertension; [facility], [address] Chronic obstructive pulmonary disease, u nspecified COPD type (H); [place] [place] [address] [facility] [place] Diverticulitis of colon [phone] Social History Tobacco Use Types Packs/Day [...] Sign Reading Time Taken Comments Blood Pressure 130/70 08/29/2020 3:35 PM CDT Pulse 69 08/29/2020 3:04 PM CDT Temperature 36.2 ??C (97.1 ??F) 08/29/2020 3:04 PM CDT Respiratory Rate - - Oxygen Saturation 98% 08/29/2020 3:04 PM CDT Inhaled Oxygen Concentration - - Weight 64.4 kg (142 lb) 08/29/2020 3:04 PM CDT Height 167.6 cm (5' 6) 08/29/2020 3:04 PM CDT Body Mass Index 22.92 08/29/2020 3:04 PM CDT documented in this encounter Progress Notes Simon Claros MD - 08/29/2020 2:30 PM CDT Subjective Darshana Brooks is a 75 year old female who presents to clinic today for the following health issues: HPI ED/UC Followup: Facility: ED Date of visit: 08/22/2020 Reason for visit: Patient was seen and evaluated and empirically started on antibiotics for diverticulitis and within 24 to 36 hours developed nausea vomiting and required follow-up at the emergency room. She is treatedwith IV hydration and her antibiotics were changed and she has tolerated Augmentin well. Diverticulitis Managing relatively well. No current pain, already tired of a soft bland diet. Bowel movements regular and not having any problems with antibiotics Current Status: Review of Systems Constitutional, HEENT, cardiovascular, pulmonary, gi and gu systems are negative, except as otherwise noted. Objective BP (!) 146/78 (BP Location: Right arm, Patient Position: Sitting, Cuff Size: Adult Regular) Pulse 69 Temp 97.1 ??F (36.2 ??C) (Temporal) Ht 1.676 m (5' 6) Wt 64.4 kg (142 lb) SpO2 98% BMI 22.92 kg/m?? Body mass index is 22.92 kg/m??. Physical Exam BP 130/70 GENERAL: healthy, alert and no distress, weight loss noted NECK: no adenopathy, no asymmetry, masses, or [...] no gross musculoskeletal defects noted, no edema Assessment & Plan 1. Abdominal pain, left lower quadrant Empirically treated for diverticulitis complicated by intolerance to her antibiotics prompting IV hydration in the ER 2. Malignant neoplasm of female breast, unspecified estrogen receptor status, unspecified laterality, unspecified site of breast (H) Followed serially by oncology 3. Benign essential hypertension Well-controlled with current therapy 4. Chronic obstructive pulmonary disease, unspecified COPD type (H) No complications and quiesced sent at this time. 5. Diverticulitis of colon Returning to the office in 1 month unless she is having further difficulties with antibiotics or other problems. We will set her up for follow-up colonoscopy electively. FUTURE APPOINTMENTS: - Follow-up visit in 1 mo No follow-ups on file. Simon Calros MD [facility] documented in this encounter Plan of Treatment Upcoming Encounters Date Type Specialty Care Team Description 10/26/2022 Lab Oncology Yris Perez MD [address] [id number] (Wo hitesh) 11/03/2022 Oncology Visit Oncology Yris Perez MD [address] [phone] (Wo hitesh) documented as of this encounter Visit Diagnoses Diagnosis Abdominal pain, left lower quadrant - Pr imary Malignant neoplasm of female breast, uns pecified estrogen receptor status, unspecified laterality, unspecified site of breast (H) Benign essential hypertension Essential hypertension, benign Chronic obstructive pulmonary disease, u nspecified COPD type (H) Diverticulitis of colon Diverticulitis of colon (without mention of hemorrhage) documented in this encounter Additional Health Concerns Infection Onset Date Last Indicated Resolved Time 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, 01/08/2017 9 06/08/17, 08/26/17 documented as of this encounter Care Teams Heading And Priming Tool Setter Relationship Specialty Start Date End Date Simon Claros MD PCP - General Internal Medicine 09/22/12 08/20/21 Simon Claros MD Assigned PCP 06/18/16 03/01/21 [address] [facility] [address] [place] [phone] documented as of this encounter
--- OUTSIDE RECORDS SUMMARY | 2022-08-20 14:24 | XMS_ITS | Encounter Summary ---
:1945 Author Organization [place] Address [facility] [place] [address] Care Team Providers Name Role Phone Simon Claros MD Primary Care Provider Simon Claros MD Unavailable Reason for Referral Diagnostic Imaging Ultrasound (Routine) - Closed Specialty Diagnoses / Procedures Referred By Contact Refer red To Contact Diagnoses Mastodynia of left breast Aaron Garcia MD Procedures US Breast Left [facility] [address] [address] Referral ID Status Reason Start Date Expiration Date Visits Requ ested Visits Authorized [id number] Closed 03/20/2020 03/20/2021 1 1 Reason for Visit Diagnostic Imaging Ultrasound (Routine) - Closed Specialty Diagnoses / Procedures Referred By Contact Refer red To Contact Diagnoses Mastodynia of left breast Aaron Garcia MD Procedures US Breast Left [facility] [address] [address] Referral ID Status Reason Start Date Expiration Date Visits Requ ested Visits Authorized [id number] Closed 03/20/2020 03/20/2021 1 1 Encounter Details Date Type Department Care Team Description 03/22/2020 Hospital Encounter [facility] Aaron Garcia Mast odynia of left [place] [facility] [address] [place] [address], [address] [place] [phone] Social History Tobacco Use Types Packs/Day Years Used Date Passive Smoke Exposure - Never Smoker Smokeless Tobacco: Never Used Alcohol Use Standard Drinks/Week Comments No 0 (1 standard drink = 0.6 oz pure alcoho l) Sex Assigned at Date Recorded Female 01/27/2022 12:36 PM CDT COVID-19 Exposure Response Date Recorded In the last month, have you been in contact with No / Unsure 03/22/2020 12:14 PM CDT someone who was confirmed or suspected to have Coronavirus / COVID-19? documented as of this encounter Medications at Time of Discharge Medication Sig Dispensed Refills Start Date End Date albuterol (PROAIR HFA) INHALE 2 PUFFS 4 8.5 Inhaler 11 2019 108 (90 Base) MCG/ACT TIMES A DAY inhalerIndications: NEEDED Chronic obstructive pulmonary disease, unspecified COPD type (H) Cholecalciferol (VITAMIN Take 2,000 Units 0 D3 PO) by mouth daily loratadine (CLARITIN) 10 Take 10 mg by 0 MG tablet mouth allopurinol (ZYLOPRIM) TAKE 1 TABLET (300 90 tablet 3 03/0305/10/2020 300 MG tabletIndications: MG) BY MOUTH DAILY Acute idiopathic gout of ADD DIRECTED TO left foot PREVIOUS SCRIPT ANASTROZOLE PO Take 1 mg by mouth 0 daily COMPOUNDED NON-CONTROLLED Estradiol 0.02% in 84 g 1 01/13/2021 SUBSTANCE (CMPD RX) - HRT base. SIG: PHARMACY TO MIX Apply 1 gram COMPOUNDED MEDICATION vaginally three times weekly. ESTRADIOL PO 0 09/26/2020 documented as of this encounter Plan of Treatment Upcoming Encounters Date Type Specialty Care Team Description 10/26/2022 Lab Oncology Yris Perez MD [address] [place] [id number] (Wo rk) 11/03/2022 Oncology Visit Oncology Yris Perez MD [address] [phone] (Wo rk) documented as of this encounter Procedures Procedure Name Priority Date/Time Associated Diagnosis Comme nts US BREAST LEFT Routine 03/22/2020 12:59 PM Mastodynia of left Results for this LIMITED 1-3 CDT breast procedure are i n QUADRANTS the results section. documented in this encounter Results US Breast Left (03/22/2020 12:59 PM CDT) Anatomical Region Laterality Modality Breast Left Ultrasound Specimen (Source) Anatomical Location Collection Method / Collectio n Time Received Time / Laterality Volume Impressions 03/22/2020 1:00 PM CDT IMPRESSION: BI-RADS CATEGORY: 2 - Benign Finding(s). RECOMMENDED FOLLOW-UP: Annual Mammograph y. The patient was given the results of the examination. LAWSON BRODY MD Narrative 03/22/2020 1:00 PM CDT Examination: Bilateral digital diagnostic mammography and digital breast tomosynthesis with computer aided detection, and focused ultrasound of the LEFT breast, 03/22/2020. Comparison: 01/13/2017, 01/27/2018 and 01/30. History: LEFT breast pain. History of RI GHT breast cancer status post breast conservation therapy in 2017. BREAST DENSITY: Heterogeneously dense Findings: Breast conservation therapy ch anges on the RIGHT. No concerning mammographic/tomographic find ings on either side. Focussed ultrasound of the upper outer q uadrant of the LEFT breast was performed. No concerning findings identi fied. Aaron Garcia MD IMG US ORDERABLES documented in this encounter Visit Diagnoses Diagnosis Mastodynia of left breast documented in this encounter Additional Health Concerns Infection Onset Date Last Indicated Resolved Time 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, 01/08/2017 9 06/08/17, 08/26/17 documented as of this encounter Care Teams Senior Product Development Scientist Relationship Specialty Start Date End Date Simon Claros MD PCP - General Internal Medicine 09/22/12 08/20/21 Simon Claros MD Assigned PCP 06/18/16 03/01/21 [address] [place] [place] [phone] documented as of this encounter
--- OUTSIDE RECORDS SUMMARY | 2022-08-20 14:24 | XMS_ITS | Encounter Summary ---
:1945 Author Organization [place] Address [facility] [place] [address] Care Team Providers Name Role Phone Simon Claros MD Primary Care Provider Simon Claros MD Unavailable Deidra Whitehead DPM, Podiatry/Foot and Ankle Unavailable Surgery Encounter Details Date Type Department Care Team Description 09/26/2020 Travel Social History Tobacco Use Types Packs/Day [...] with No / Unsure 09/26/2020 1:49 PM MAGNETIC TAPE WINDER someone who was confirmed or suspected to have Coronavirus / COVID-19? documented as of this encounter Plan of Treatment Upcoming Encounters Date Type Specialty Care Team Description 10/26/2022 Lab Oncology Yris Perez MD [address] [address] (Wo rk) 11/03/2022 Oncology Visit Oncology Yris Perez MD [address] [address] (Wo rk) documented as of this encounter Visit Diagnoses Not on filedocumented in this encounter Additional Health Concerns Infection Onset Date Last Indicated Resolved Time 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, 01/08/2017 9 06/08/17, 08/26/17 documented as of this encounter Care Teams Dry Cleaning Checker Relationship Specialty Start Date End Date Simon Claros MD PCP - General Internal Medicine 09/22/12 08/20/21 Simon Claros MD Assigned PCP 06/18/16 03/01/21 [address] [place] [phone] Deidra Whitehead DPM, Assigned Musculoskeletal 09/06/20 10/26/20 Podiatry/Foot and Provider Ankle Surgery [address] [place] [id number] documented as of this encounter
--- OUTSIDE RECORDS SUMMARY | 2022-08-20 14:24 | XMS_ITS | Encounter Summary ---
:1945 Author Organization [place] Address [address] [place] [address] Care Team Providers Name Role Phone Simon Claros MD Primary Care Provider Simon Claros MD Unavailable Deidra Whitehead DPM, Podiatry/Foot and Ankle Unavailable Surgery Jordin AllredM Unavailable Chan Olivarez MD Unavailable Simon Claros MD Unavailable Chan Olivarez MD Unavailable Chan Duke MD Primary Care Provider Chan Duke MD Unavailable Aaron Garcia MD Unavailable Yris Perez MD Unavailable [phone] Reason for Visit Reason Onset Date Comments Call Back 08/22/2020 feeling worse Encounter Details Date Type Department Care Team Description 08/22/2020 Telephone [facility] Simon Claros, Call B ack (feeling Clinic Eduardo HINES worse) [address] [facility], [address] [facility] [address] [place] [address] [place] [phone] [phone] Social History Tobacco Use Types Packs/Day [...] this encounter Miscellaneous Notes Telephone Encounter - Mariza Mariscal RN - 08/22/2020 2:46 PM CDT Spoke with Pt: She states she has taken Mirilax the ABX, as prescribed - she has started severely vomiting this morning- cannot even keep a sip of water down. She feels miserable- no BM and no passing of gas. Note on Xray there was no obstructive gas patterns, but stool in colon Pt believes she needs IV fluids Her is transporting her to the ER for evaluation Mariza Cisneros RN Telephone Encounter - Masha Ureña - 08/22/2020 1:48 PM CDT Reason for Call: Other call back Detailed comments: patient was seen Yesterday and was given abx- she is vomiting and cannot keep themedications down, not feeling good at all please advise Phone Number Patient can be reached at: Home number on file [phone] (home) Best Time: Today Can we leave a detailed message on this number? Not Applicable Call taken on 08/22/2020 at 1:48 PM by Masha Ureña documented in this encounter Plan of Treatment Upcoming Encounters Date Type Specialty Care Team Description 10/26/2022 Lab Oncology Yris Perez MD [address] [address] (Wo rk) 11/03/2022 Oncology Visit Oncology Yris Perez MD 420 [facility] [address] [place] [address] (Wo rk) documented as of this encounter Visit Diagnoses Not on filedocumented in this encounter Additional Health Concerns Infection Onset Date Last Indicated Resolved Time 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, 01/08/2017 9 06/08/17, 08/26/17 documented as of this encounter Care Teams Contact Finger Assembler Relationship Specialty Start Date End Date Simon Claros MD PCP - General Internal Medicine 09/22/12 08/20/21 Chan Duke MD PCP - General Internal Medicine 08/21/[address] [place], [place] [address] Simon Claros MD Assigned PCP 06/18/16 03/01/[address] [place] [address] Deidra Whitehead, DPM, Assigned Musculoskeletal 09/06/20 10/26/20 Podiatry/Foot and Provider Ankle Surgery [address] [facility] [address] [place] [address] Jordin Allred, Assigned Musculoskeletal 03/02/21 DPM Provider [address] [place] [address] Chan Olivarez MD Assigned PCP 03/02/21 04/09/[address] [place] [phone] Simon Claros MD Assigned PCP 04/10/21 05/31/[address] [place] [phone] Chan Olivarez MD Assigned PCP 06/01/21 08/23/21 [address] [place] [address] Chan Duke MD Assigned PCP 08/24/[address] [place] [address] Aaron Garcia Assigned Cancer Care 10/12/21 05/15/22 MD Max Provider [address] [place] [address] Yris Perez Assigned Cancer Care 05/16/22 MD Ingrid Provider 420 [facility] [address] [place] [address] documented as of this encounter
--- OUTSIDE RECORDS SUMMARY | 2022-08-20 14:24 | XMS_ITS | Encounter Summary ---
:1945 Author Organization [place] Address [address] [place] [address] Care Team Providers Name Role Phone Simon Claros MD Primary Care Provider Simon Claros MD Unavailable Reason for Visit Reason Onset Date Comments Medication Follow-up 03/04/2020 Estradiol cream - p atient requesting extended refill to 6 months instead 3 months due to dispensing fee. Encounter Details Date Type Department Care Team Description 03/04/[address] [facility] Simon Claros, Chron ic obstructive pulmonary disease, unspecified COPD type (H) (Primary Dx); [facility] Malignant neoplasm of female breast, uns pecified estrogen receptor status, unspecified laterality, unspecified site of breast (H); [address] Acute idi opathic gout of left foot; [facility], [address] Atrophic vaginitis; [place] [id number] [place] [place] Hyperlipidemia LDL goal <130 ; [phone] [id number] Vitamin D deficiency; [phone] Benign essentia l hypertension; (Work) Right hip pain Social History Tobacco Use Types Packs/Day Years Used Date Passive Smoke Exposure - Never Smoker Smokeless Tobacco: Never Used Alcohol Use Standard Drinks/Week Comments No 0 (1 standard drink = 0.6 oz pure alcoho l) Sex Assigned at Date Recorded Female 01/27/2022 12:36 PM CDT documented as of this encounter Progress Notes Simon Claros MD - 03/04/2020 2:15 PM CDT Darshana Brooks is a 74 year old female who is being evaluated via a billable telephone visit. The patient has been notified of following: This telephone visit will be conducted via a call between you and your physician/provider. We have found that certain health care needs can be provided without the need for a physical exam. This service lets us provide the care you need with a short phone conversation. If a prescription is necessary we can send it directly to your pharmacy. If lab work is needed we can place an order for that and you can then stop by our lab to have the test done at a later time. Telephone visits are billed at different rates depending on your insurance coverage. During this emergency period, for some insurers they may be billed the same as an in-person visit. Please reach out to your insurance provider with any questions. If during the course of the call the physician/provider feels a telephone visit is not appropriate, you will not be charged for this service. Patient has given verbal consent for Telephone visit? Yes How would you like to obtain your AVS? MyChart Subjective Darshana Brooks is a 74 year old female who presents to clinic today for the following health issues: Med review Reviewed medications: Asthma and seasonal allergies under good control. Compounded estradiol cream was recently renewed and the partida is changed 100%. He was again larger amount. Exercise and activity related walking to the pandemic, weather and personal effort. Discussed ongoing opportunities. Current Outpatient Medications Medication Sig Dispense Refill ??? albuterol (PROAIR HFA) 108 (90 Base) MCG/ACT inhaler INHALE 2 PUFFS 4 TIMES A DAY NEEDED 8.5 Inhaler 11 ??? allopurinol (ZYLOPRIM) 300 MG tablet TAKE 1 TABLET (300 MG) BY MOUTH DAILY ADD DIRECTED TO PREVIOUS SCRIPT 90 tablet 3 ??? ANASTROZOLE PO Take 1 mg by mouth daily ??? Cholecalciferol (VITAMIN D3 PO) Take 2,000 Units by mouth daily ??? ESTRADIOL PO ??? loratadine (CLARITIN) 10 MG tablet Take 10 mg by mouth Allergies Allergen Reactions ??? Other [No Clinical Screening - See Comments] PN: LW Other1: -latex:nasal congestion, eyes watering. LW Other2: -canteloupe, horses, cats, dust, molds, trees ??? Sulfamethoxazole Heartburn ??? Chlorhexidine Gluconate [Chlorhexidine] Rash ??? Latex Rash Other reaction(s): Other, see comments PN: sneezing, runny nose, Reviewed and updated as needed this visit by Provider Review of Systems ROS COMP: Constitutional, HEENT, cardiovascular, pulmonary, gi and gu systems are negative, except as otherwise noted. Objective Reported vitals: There were no vitals taken for this visit. healthy, alert and no distress PSYCH: Alert and oriented times 3; coherent speech, normal rate and volume, able to articulate logical thoughts, able to abstract reason, no tangential thoughts, no hallucinations or delusions Her affect is normal RESP: No cough, no audible wheezing, able to talk in full sentences Remainder of exam unable to be completed due to telephone visits Assessment/Plan: 1. Chronic obstructive pulmonary disease, unspecified COPD type (H) Well-controlled with current therapy, follow-up with wellness exam 2. Malignant neoplasm of female breast, unspecified estrogen receptor status, unspecified laterality, unspecified site of breast (H) Routine follow-up with oncology 3. Acute idiopathic gout of left foot No recent flares 4. Atrophic vaginitis Continue with estrogen cream 5. Hyperlipidemia LDL goal <130 Follow-up with wellness exam 6. Vitamin D deficiency Follow-up with wellness exam 7. Benign essential hypertension Well-controlled with current therapy 8. Right hip pain No follow-ups on file. Phone call duration: 11 minutes Simon Claros MD documented in this encounter Plan of Treatment Upcoming Encounters Date Type Specialty Care Team Description 10/26/2022 Lab Oncology Yris Perez MD [address] [id number] (Madeleine proctor) 11/03/2022 Oncology Visit Oncology Yris Perez MD [address] [id number] (Madeleine proctor) documented as of this encounter Visit Diagnoses Diagnosis Chronic obstructive pulmonary disease, u nspecified COPD type (H) - Primary Malignant neoplasm of female breast, uns pecified estrogen receptor status, unspecified laterality, unspecified site of breast (H) Acute idiopathic gout of left foot Atrophic vaginitis Postmenopausal atrophic vaginitis Hyperlipidemia LDL goal <130 Other and unspecified hyperlipidemia Vitamin D deficiency Unspecified vitamin D deficiency Benign essential hypertension Essential hypertension, benign Right hip pain Pain in joint, pelvic region and thigh documented in this encounter Additional Health Concerns Infection Onset Date Last Indicated Resolved Time 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, 01/08/2017 9 06/08/17, 08/26/17 documented as of this encounter Care Teams Ripper Operator Relationship Specialty Start Date End Date Simon Claros MD PCP - General Internal Medicine 09/22/12 08/20/21 Simon Claros MD Assigned PCP 06/18/16 03/01/[address] [facility] [address] [place] [id number] documented as of this encounter
--- OUTSIDE RECORDS SUMMARY | 2022-08-20 14:24 | XMS_ITS | Encounter Summary ---
:1945 Author Organization [place] Address [address] [facility] [place] [address] Care Team Providers Name Role Phone Simon Claros MD Primary Care Provider Simon Claros MD Unavailable Reason for Visit Reason Comments Physical Encounter Details Date Type Department Care Team Description 05/29/2020 Office Visit [facility] Simon Claros, Chroni c obstructive pulmonary disease, unspecified COPD type (H) (Primary Dx); [facility] Malignant neoplasm of female breast, uns pecified estrogen receptor status, unspecified laterality, unspecified site of breast (H); [address] Benign es sential hypertension; [place], [address] Hyperlipidemia LDL goal <130; [facility] [place] [address] [facility] [place] Acute idiopathic gout of lef t foot; [phone] Vitamin D deficiency; [phone] Trigger finger, acquired; (Work) Right hip pain; [phone] Screening for h ypothyroidism; (Fax) Nonspecific fin ding on examination of urine Social History Tobacco Use Types Packs/Day Years Used Date Passive Smoke Exposure - Never Smoker Smokeless Tobacco: Never Used Alcohol Use Standard Drinks/Week Comments No 0 (1 standard drink = 0.6 oz pure alcoho l) Sex Assigned at Date Recorded Female 01/27/2022 12:36 PM CDT COVID-19 Exposure Response Date Recorded In the last month, have you been in contact with No / Unsure 05/29/2020 9:52 AM CDT someone who was confirmed or suspected to have Coronavirus / COVID-19? documented as of this encounter Last Filed Vital Signs Vital Sign Reading Time Taken Comments Blood Pressure 132/82 05/29/2020 10:24 AM CDT Pulse 74 05/29/2020 10:24 AM CDT Temperature 36.4 ??C (97.6 ??F) 05/29/2020 10:24 AM CDT Respiratory Rate - - Oxygen Saturation 98% 05/29/2020 10:24 AM CDT Inhaled Oxygen Concentration - - Weight 67.4 kg (148 lb 8 oz) 05/29/2020 10:24 AM CDT Height 167.6 cm (5' 6) 05/29/2020 10:24 AM CDT Body Mass Index 23.97 05/29/2020 10:24 AM CDT documented in this encounter Progress Notes Simon Claros MD - 05/29/2020 10:30 AM CDT SUBJECTIVE: Darshana Brooks is a 74 year old female who presents for Preventive Visit. Managing the pandemic relatively well although, because of the self quarantine she has been less active than usual. Are you in the first 12 months of your Medicare coverage? No Healthy Habits: In general, how would you rate your overall health? Good Frequency of exercise: None Duration of exercise: Less than 15 minutes Taking medications regularly: Yes Barriers to taking medications: None Medication side effects: None Ability to successfully perform activities of daily living: No assistance needed Home Safety: No safety concerns identified Hearing Impairment: Difficulty understanding soft or whispered speech In the past 6 months, have you been bothered by leaking of urine? Yes In general, how would you rate your overall mental or emotional health? Very good PHQ-2 Total Score: Additional concerns today: No Do you feel safe in your environment? Yes Have you ever done Advance Care Planning? (For example, a Health Directive, POLST, or a discussion with a medical provider or your loved ones about your wishes): No, advance care planning information given to patient to review. Patient plans to discuss their wishes with loved ones or provider. Fall risk Cognitive Screening 1) Repeat 3 items (Leader, Season, Table) 2) Clock draw: NORMAL 3) 3 item recall: Recalls 2 objects Results: NORMAL clock, 1-2 items recalled: COGNITIVE IMPAIRMENT LESS LIKELY Mini-CogTM Copyright S [employer]. Licensed by the author for use in [facility]; reprintedwith permission (jorge@[facility]). All rights reserved. Do you have sleep apnea, excessive snoring or daytime drowsiness?: no Reviewed and updated as needed this visit by clinical staff Reviewed and updated as needed this visit by Provider Social History Tobacco Use ??? Smoking status: Passive Smoke Exposure - Never Smoker ??? Smokeless tobacco: Never Used Substance Use Topics ??? Alcohol use: No Alcohol/week: 0.0 standard drinks Alcohol Use 01/30/2019 Prescreen: >3 drinks/day or >7 drinks/week? Not Applicable Prescreen: >3 drinks/day or >7 drinks/week? - Current providers sharing in care for this patient include: Patient Care Team: Simon Claros MD as PCP - General (Internal Medicine) Simon Claros MD as Assigned PCP The following health maintenance items are reviewed in Epic and correct as of today: Health Maintenance Topic Date Due ??? HEPATITIS C SCREENING 1945 ??? COPD ACTION PLAN 1945 ??? ZOSTER IMMUNIZATION (1 of 2) 1997 ??? MEDICARE ANNUAL WELLNESS VISIT 01/31/2020 ??? INFLUENZA VACCINE (1) 07/16/2020 ??? FALL RISK ASSESSMENT 03/04/2021 ??? ADVANCE CARE PLANNING 06/02/2021 ??? MAMMO SCREENING 03/22/2022 ??? LIPID 01/31/2024 ??? COLORECTAL CANCER SCREENING 06/03/2027 ??? DTAP/TDAP/TD IMMUNIZATION (4 - Td) 01/30/2029 ??? DEXA Completed ??? SPIROMETRY Completed ??? PHQ-2 Completed ??? PNEUMOCOCCAL IMMUNIZATION 65+ LOW/MEDIUM RISK Completed ??? IPV IMMUNIZATION Aged Out ??? MENINGITIS IMMUNIZATION Aged Out ??? HEPATITIS B IMMUNIZATION Aged Out Current Outpatient Medications Medication Sig Dispense Refill ??? albuterol (PROAIR HFA) 108 (90 Base) MCG/ACT inhaler INHALE 2 PUFFS 4 TIMES A DAY NEEDED 8.5 Inhaler 11 ??? allopurinol (ZYLOPRIM) 300 MG tablet TAKE 1 TABLET (300 MG) BY MOUTH DAILY ADD DIRECTED TO PREVIOUS SCRIPT 90 tablet 0 ??? ANASTROZOLE PO Take 1 mg by mouth daily ??? calcium carbonate (OS-ROSALINO) 500 MG tablet Take 1 tablet by mouth 2 times daily ??? Cholecalciferol (VITAMIN D3 PO) Take 2,000 Units by mouth daily ??? COMPOUNDED NON-CONTROLLED SUBSTANCE (CMPD RX) - PHARMACY TO MIX COMPOUNDED MEDICATION Estradiol 0.02% in HRT base. SIG: Apply 1 gram vaginally three times weekly. 84 g 1 ??? ESTRADIOL PO ??? loratadine (CLARITIN) 10 MG tablet Take 10 mg by mouth ??? magnesium 250 MG tablet Take 1 tablet by mouth daily ??? UNABLE TO FIND MEDICATION NAME: cranberry pills Allergies Allergen Reactions ??? Other [No Clinical Screening - See Comments] PN: LW Other1: -latex:nasal congestion, eyes watering. LW Other2: -canteloupe, horses, cats, dust, molds, trees ??? Sulfamethoxazole Heartburn ??? Chlorhexidine Gluconate [Chlorhexidine] Rash ??? Latex Rash Other reaction(s): Other, see comments PN: sneezing, runny nose, Review of Systems CONSTITUTIONAL: NEGATIVE for fever, chills, change in weight INTEGUMENTARY/SKIN: NEGATIVE for worrisome rashes, moles or lesions EYES: NEGATIVE for vision changes or irritation ENT/MOUTH: NEGATIVE for ear, mouth and throat problems RESP: NEGATIVE for significant cough or SOB BREAST: NEGATIVE for masses, tenderness or discharge CV: NEGATIVE for chest pain, palpitations or peripheral edema GI: NEGATIVE for nausea, abdominal pain, heartburn, or change in bowel habits : NEGATIVE for frequency, dysuria, or hematuria Nocturia x1, stress incontinence MUSCULOSKELETAL: NEGATIVE for significant arthralgias or myalgia Midthoracic back pain with lifting without paresthesias or bandlike pain NEURO: NEGATIVE for weakness, dizziness or paresthesias ENDOCRINE: NEGATIVE for temperature intolerance, skin/hair changes HEME: NEGATIVE for bleeding problems PSYCHIATRIC: NEGATIVE for changes in mood or affect OBJECTIVE: There were no vitals taken for this visit. Estimated body mass index is 23.73 kg/m?? as calculated from the following: Height as of 04/26/19: 1.676 m (5' 6). Weight as of 08/29/19: 66.7 kg (147 lb). Physical Exam BP 132/82 (BP Location: Left arm, Patient Position: Sitting, Cuff Size: Adult Regular) Pulse 74 Temp 97.6 ??F (36.4 ??C) (Temporal) Ht 1.676 m (5' 6) Wt 67.4 kg (148 lb 8 oz) SpO2 98% BMI 23.97 kg/m?? GENERAL APPEARANCE: healthy, alert and no distress EYES: Eyes grossly normal to inspection, PERRL and conjunctivae and sclerae normal HENT: ear canals and TM's normal, nose and mouth without ulcers or lesions, oropharynx clear and oral mucous membranes moist NECK: no adenopathy, no asymmetry, masses, or scars and thyroid normal to palpation RESP: lungs clear to auscultation - no rales, rhonchi or wheezes BREAST: normal without masses, tenderness or nipple discharge and no palpable axillary masses or adenopathy CV: regular rate and rhythm, normal S1 S2, no S3 or S4, no murmur, click or rub, no peripheral edemaand peripheral pulses strong ABDOMEN: soft, nontender, no hepatosplenomegaly, no masses and bowel sounds normal MS: no musculoskeletal defects are noted and gait is age appropriate without ataxia SKIN: no suspicious lesions or rashes NEURO: Normal strength and tone, sensory exam grossly normal, mentation intact and speech normal PSYCH: mentation appears normal and affect normal/bright ASSESSMENT / PLAN: 1. Chronic obstructive pulmonary disease, unspecified COPD type (H) No wheezing or dyspnea on exertion last year and has not had any exacerbations with seasonal allergies for upper respiratory infections 2. Malignant neoplasm of female breast, unspecified estrogen receptor status, unspecified laterality, unspecified site of breast (H) Followed by oncology 3. Benign essential hypertension Well-controlled with current therapy - UA reflex to Microscopic and Culture - CBC with platelets - Comprehensive metabolic panel 4. Hyperlipidemia LDL goal <130 - Lipid panel reflex to direct LDL Fasting 5. Acute idiopathic gout of left foot Gastric lesions - Uric acid 6. Vitamin D deficiency - Vitamin D Deficiency 7. Trigger finger, acquired No recent episodes 8. Right hip pain Minimal discomfort with her lower level of activity 9. Screening for hypothyroidism - TSH with free T4 reflex 10. Nonspecific finding on examination of urine - Urine Culture Aerobic Bacterial COUNSELING: Reviewed preventive health counseling, as reflected in patient instructions Estimated body mass index is 23.73 kg/m?? as calculated from the following: Height as of 04/26/19: 1.676 m (5' 6). Weight as of 08/29/19: 66.7 kg (147 lb). reports that she is a non-smoker but has been exposed to tobacco smoke. She has never used smokeless tobacco. Appropriate preventive services were discussed with this patient, including applicable screening as appropriate for cardiovascular disease, diabetes, osteopenia/osteoporosis, and glaucoma. As appropriate for age/gender, discussed screening for colorectal cancer, prostate cancer, breast cancer, and cervical cancer. Checklist reviewing preventive services available has been given to the patient. Reviewed patients plan of care and provided an AVS. The for Darshana meets the Care Plan requirement. This Care Plan has been established and reviewed with the Patient. Counseling Resources: ATP IV Guidelines Pooled Cohorts Equation Calculator Breast Cancer Risk Calculator FRAX Risk Assessment ICSI Preventive Guidelines Dietary Guidelines for Americans, 2009 [employer]'s MyPlate ASA Prophylaxis Lung CA Screening Simon Claros MD [facility] Identified Health Risks: documented in this encounter Plan of Treatment Upcoming Encounters Date Type Specialty Care Team Description 10/26/2022 Lab Oncology Yris Perez MD [address] [address] (Madeleine proctor) 11/03/2022 Oncology Visit Oncology Yris Perez MD [address] [address] (Madeleine proctor) documented as of this encounter Procedures Procedure Name Priority Date/Time Associated Diagnosis Comme nts URINE CULTURE Routine 05/29/2020 12:14 Nonspecific finding on Results for this PM CDT examination of urine procedu re are in the results section. URINE MICROSCOPIC Routine 05/29/2020 11:26 Chronic obstructive Results for this AM CDT pulmonary disease, procedure are in unspecified COPD type the re sults (H) section. UA MACROSCOPIC WITH Routine 05/29/2020 11:26 Benign essential Results for this REFLEX TO MICROSCOPIC AM CDT hypertension proced ure are in AND CULTURE the results section. VITAMIN D DEFICIENCY Routine 05/29/2020 11:26 Vitamin D defici ency Results for this SCREENING AM CDT procedure are i n the results section. URIC ACID Routine 05/29/2020 11:26 Acute idiopathic gout Re sults for this AM CDT of left foot procedure are i n the results section. TSH WITH FREE T4 Routine 05/29/2020 11:26 Screening for Result s for this REFLEX AM CDT hypothyroidism procedure are in the results section. LIPID REFLEX TO Routine 05/29/2020 11:26 Hyperlipidemia LDL Re sults for this DIRECT LDL PANEL AM CDT goal <130 procedure a re in the results section. COMPREHENSIVE Routine 05/29/2020 11:26 Benign essential Result s for this METABOLIC PANEL AM CDT hypertension procedure ar e in the results section. CBC WITH PLATELETS Routine 05/29/2020 11:26 Benign essential R esults for this AM CDT hypertension procedure are i n the results section. documented in this encounter Results (ABNORMAL) Urine Culture Aerobic Bacterial (05/29/2020 12:14 PM CDT) Component Value Ref Test Analysis Performed At [facility] gist Range Method Time Signature Specimen Midstream Urine INFECTIOUS Description DISEASES DIAGNOSTIC LABORATORY Culture Micro >100,000 colonies/mL 05/31/2020 INFE CTIOUS Escherichia coli 7:24 AM CDT DISEASES (A) DIAGNOSTIC LABORATORY Culture Micro <10,000 colonies/mL 05/31/2020 INFEC TIOUS mixed urogenital robert 7:24 AM CDT DISEA SES Susceptibility testing not routinely done DIAGNOSTIC LABORATORY Specimen (Source) Anatomical Collection Method Collection Time Re ceived Time Location / / Volume Laterality Examination of 05/29/2020 12:14 0 midstream urine PM CDT 12:16 PM CDT specimen (procedure) Organism Antibiotic Method Susceptibility Escherichia coli Ampicillin VERONIKA >=32 ug/mL: Res istant Escherichia coli Cefazolin VERONIKA <=4 ug/mL: Susc eptible Comment: Cefazolin VERONIKA breakpoints ar e for the treatment of uncomplicated urinary tract infections. ??For the treat ment of systemic infections, please contact the laboratory for additional te sting. Escherichia coli Cefoxitin VERONIKA <=4 ug/mL: Susc eptible Escherichia coli Ceftazidime VERONIKA <=1 ug/mL: Susc eptible Escherichia coli Ceftriaxone VERONIKA <=1 ug/mL: Susc eptible Escherichia coli Ciprofloxacin VERONIKA <=0.25 ug/mL: S usceptible Escherichia coli Gentamicin VERONIKA <=1 ug/mL: Susc eptible Escherichia coli Levofloxacin VERONIKA <=0.12 ug/mL: S usceptible Escherichia coli Nitrofurantoin VERONIKA <=16 ug/mL: Jennifer ceptible Escherichia coli Tobramycin VERONIKA <=1 ug/mL: Susc eptible Escherichia coli Trimethoprim/Sulfamethoxazole VERONIKA < =1/19 ug/mL: Susceptible Escherichia coli Ampicillin/Sulbactam VERONIKA 16 ug/mL: Intermediate Escherichia coli Piperacillin/Tazo VERONIKA <=4 ug/mL: Beunrostro sceptible Escherichia coli Cefepime VERONIKA <=1 ug/mL: Susc eptible Simon Claros MD LAB - MICRO GENERAL ORDERABL ES Performing Organization Address City/[facility] Phon e Number INFECTIOUS DISEASES [address] [place] [address] DIAGNOSTIC LABORATORY, [facility] INFECTIOUS DISEASES [address] [place] [address], [place] DIAGNOSTIC LABORATORY (ABNORMAL) Urine Microscopic (05/29/2020 11:26 AM CDT) [facility] gist Method Time Signature WBC Urine 10-25 (A) OTO5^0 - 5 05/29/2020 [facility] /HPF 11:59 AM CDT [facility] [place] RBC Urine O - 2 OTO2^O - 2 05/29/2020 [facility] /HPF 11:59 AM CDT [facility] [place] Squamous Few FEW^Few 05/29/2020 [facility] Epithelial /LPF /LPF 11:59 AM CDT [facility] NA Urine Bacteria Urine Many (A) NEG^Negati 05/29/2020 [facility] ve /HPF 11:59 AM CDT [facility] [place] Specimen Anatomical Collection Method Collection Time Receive d Time (Source) Location / / Volume Laterality 05/29/2020 11:26 05/29/2020 AM CDT 11:27 AM CDT Simon Claros MD LAB - URINE ORDERABLES Performing Organization Address City/[facility] Phon e Number [facility] [place] [address] [place], [place] [id number] Uric acid (05/29/2020 11:26 AM CDT) P athologist Signature Uric Acid 4.1 2.6 - 6.0 05/31/2020 [facility] mg/dL 12:25 PM CDT [facility] Specimen Anatomical Collection Method Collection Time Receive d Time (Source) Location / / Volume Laterality Blood specimen 05/29/2020 11:26 0 (specimen) AM CDT 11:27 AM CDT Simon Claros MD LAB - BLOOD ORDERABLES Performing Organization Address City/[facility]/ZIP Code Phon e Number [facility] [address] [phone] TSH with free T4 reflex (05/29/2020 11:26 AM CDT) athologist Signature TSH 0.95 0.40 - 4.00 05/31/2020 [facility] mU/L 12:25 PM CDT [facility] Specimen Anatomical Collection Method Collection Time Receive d Time (Source) Location / / Volume Laterality Blood specimen 05/29/2020 11:26 0 (specimen) AM CDT 11:27 AM CDT Simon Claros MD LAB - BLOOD ORDERABLES Performing Organization Address City/[facility]/ZIP Code Phon e Number [facility] [address] [place] [id number] Vitamin D Deficiency (05/29/2020 11:26 AM CDT) athologist Signature Vitamin D 58 20 - 75 05/30/2020 [facility] Deficiency ug/L 12:12 PM CDT [facility] Comment: Season, race, dietary intake, and treatm ent affect the concentration of 56-xewaufl-Lxzyamk D. Values may decreas e during winter months and increase during summer months. Values 20-29 ug/L may indicate Vitamin D insufficiency and values <20 ug/L may indicate Vitamin D deficiency. Vitamin D determination is routinely per formed by an immunoassay specific for 25 hydroxyvitamin D3. ??If an individual is on vitamin D2 (ergocalciferol) supplementation, please specify 25 [place] vi tamin D2 and D3 level determination by LCMSMS test VITD23. Specimen Anatomical Collection Method Collection Time Receive d Time (Source) Location / / Volume Laterality Blood specimen 05/29/2020 11:26 0 (specimen) AM CDT 11:27 AM CDT Simon Claros MD LAB - BLOOD ORDERABLES Performing Organization Address City/State/ZIP Code Phon e Number [facility] [address] [place] [address] [facility] (ABNORMAL) Lipid panel reflex to direct LDL Fasting (05/29/2020 11:26 AM CDT) athologist Signature Cholesterol 201 (H) <200 mg/dL 05/31/2020 [facility] 12:25 PM T [facility] Comment: Desirable: <200 mg/dl Triglycerides 114 <150 mg/dL 05/31/2020 [facility]30 PM [facility] HDL Cholesterol 59 >49 mg/dL 05/31/2020 12:25 PM [facility] LDL Cholesterol 119 (H) <100 mg/dL 05/31/2020 12:30 PM [facility] Comment: Above desirable: ??100-129 mg/dl Borderline High: ??130-159 mg/dL High: ? 160-189 mg/dL Very high: ? >189 mg/dl Non HDL Cholesterol 142 (H) <130 mg/dL 05/31/2020 12:25 PM [facility] Comment: Above Desirable: ??130-159 mg/dl Borderline high: ??160-189 mg/dl High: ? 190-219 mg/dl Very high: ? >219 mg/dl Specimen Anatomical Collection Method Collection Time Receive d Time (Source) Location / / Volume Laterality Blood specimen 05/29/2020 11:26 0 (specimen) AM CDT 11:27 AM CDT Simon Claros MD LAB - BLOOD ORDERABLES Performing Organization Address City/State/ZIP Code Phon e Number [facility] [address] [place] [address] (ABNORMAL) Comprehensive metabolic panel (05/29/2020 11:26 AM CDT) athologist Signature Sodium 139 133 - 144 05/31/2020 [facility] mmol/L 11:31 AM T [facility] Potassium 4.4 3.4 - 5.3 05/31/2020 [facility] mmol/L 11:31 AM T [facility] Chloride 107 94 - 109 05/31/2020 [facility] mmol/L 11:31 AM T [facility] Carbon Dioxide 25 20 - 32 05/31/2020 [facility] mmol/L 11:39 AM [facility] Anion Gap 7 3 - 14 05/31/2020 [facility] mmol/L 11:39 AM T [facility] Glucose 90 70 - 99 05/31/2020 [facility] mg/dL 11:39 AM T [facility] Urea Nitrogen 14 7 - 30 05/31/2020 [facility] mg/dL 11:39 AM T [facility] Creatinine 0.89 0.52 - 05/31/2020 [facility] 1.04 mg/dL 11:39 AM T [facility] GFR Estimate 64 >60 05/31/2020 [facility] mL/min/{1. 11:39 AM T [facility] 73_m2} [facility] Comment: Non GFR Calc Starting 11/01/2018, serum creatinine ba sed estimated GFR (eGFR) will be calculated using the Chronic Kidney Dise [facility] Epidemiology Collaboration (CKD-EPI) equation. GFR Estimate If 74 >60 mL/min/{1.73_m2} 05/31/2020 11 :39 AM [facility] Black [facility][1] Comment: GFR Calc Starting 11/01/2018, serum creatinine ba sed estimated GFR (eGFR) will be calculated using the Chronic Kidney Dise [facility] Epidemiology Collaboration (CKD-EPI) equation. Calcium 8.7 8.5 - 10.1 05/31/2020 11:39 AM [facility] mg/dL [facility][1] Bilirubin Total 0.6 0.2 - 1.3 05/31/2020 12:25 PM [facility] mg/dL [facility][1] Albumin 3.8 3.4 - 5.0 g/dL 05/31/2020 12:25 PM [facility] Protein Total 7.1 6.8 - 8.8 g/dL 05/31/2020 12:25 PM [facility] Alkaline Phosphatase 70 40 - 150 U/L 05/31/2020 12:25 PM [facility] ALT 58 (H) 0 - 50 U/L 05/31/2020 12:25 PM [facility] AST 36 0 - 45 U/L 05/31/2020 12:25 PM [facility] Specimen Anatomical Collection Method Collection Time Receive d Time (Source) Location / / Volume Laterality Blood specimen 05/29/2020 11:26 0 (specimen) AM CDT 11:27 AM CDT Simon Claros MD LAB - BLOOD ORDERABLES Performing Organization Address City/State/ZIP Code Phon e Number [facility] [address] [place] [address] (ABNORMAL) CBC with platelets (05/29/2020 11:26 AM CDT) Analysis Performed At Patho logist Time Signature WBC 6.9 4.0 - 11.0 05/29/2020 [facility] 10e9/L 11:52 AM CDT [facility] [place] RBC Count 4.49 3.8 - 5.2 05/29/2020 [facility] 10e12/L 11:52 AM CDT [facility] [place] Hemoglobin 15.2 11.7 - 05/29/2020 [facility] 15.7 g/dL 11:52 AM CDT [facility] [place] Hematocrit 43.9 35.0 - 05/29/2020 [facility] 47.0 % 11:52 AM CDT [facility] [place] MCV 98 78 - 100 05/29/2020 [facility] fl 11:52 AM CDT [facility] [place] MCH 33.9 (H) 26.5 - 05/29/2020 [facility] 33.0 pg 11:52 AM CDT [facility] [place] MCHC 34.6 31.5 - 05/29/2020 [facility] 36.5 g/dL 11:52 AM CDT [facility] [place] RDW 13.9 10.0 - 05/29/2020 [facility] 15.0 % 11:52 AM CDT [facility] [place] Platelet Count 211 150 - 450 05/29/2020 [facility] 10e9/L 11:52 AM CDT [facility] [place] Specimen Anatomical Collection Method Collection Time Receive d Time (Source) Location / / Volume Laterality Blood specimen 05/29/2020 11:26 0 (specimen) AM CDT 11:27 AM CDT Simon Claros MD LAB - BLOOD ORDERABLES Performing Organization Address City/State/ZIP Code Phon e Number [facility] [place] [address] [place] [address] (ABNORMAL) UA reflex to Microscopic and Culture (05/29/2020 11:26 AM CDT) [facility] Method Time Signature Color Urine Yellow 05/29/2020 [facility] 11:59 AM CLINICS CDT [place] Appearance Urine Clear 05/29/2020 [facility] 11:59 AM [facility]INICS CD[facility] [place] Glucose Urine Negative NEG^Negat 05/29/2020 [facility] dee mg/dL 11:59 AM [facility]INICS CD[facility] [place] Bilirubin Urine Negative NEG^Negat 05/29/2020 [facility] dee 11:59 AM [facility] [place] Ketones Urine Negative NEG^Negat 05/29/2020 [facility] dee mg/dL 11:59 AM [facility]INICS CD[facility] [place] Specific [place] 1.020 1.003 - 05/29/2020 [facility] Urine 1.035 11:59 AM CLINICS [facility] [place] Blood Urine Trace (A) NEG^Negat 05/29/2020 [facility] dee 11:59 AM [facility] [place] pH Urine 7.0 5.0 - 7.0 05/29/2020 [facility] pH 11:59 AM [facility] [place] Protein Albumin Negative NEG^Negat 05/29/2020 [facility] Urine dee mg/dL 11:59 AM [facility]INICS [facility] [place] Urobilinogen 0.2 0.2 - 1.0 05/29/2020 [facility] Urine EU/dL 11:59 AM [facility] [place] Nitrite Urine Positive (A) NEG^Negat 05/29/2020 [facility] dee 11:59 AM [facility]INICS [facility] [place] Leukocyte Small (A) NEG^Negat 05/29/2020 [facility] Esterase Urine dee 11:59 AM CLINICS CDT [place] Source Midstream 05/29/2020 [place] Urine 11:27 AM CLINICS CDT [place] Specimen (Source) Anatomical Collection Method Collection Time Re ceived Time Location / / Volume Laterality Examination of 05/29/2020 11:26 0 midstream urine AM CDT 11:27 AM CDT specimen (procedure) Simon Claros MD LAB - URINE ORDERABLES Performing Organization Address City/State/ZIP Code Phon e Number [facility] [place] [address] [place] [address] documented in this encounter Visit Diagnoses Diagnosis Chronic obstructive pulmonary disease, u nspecified COPD type (H) - Primary Malignant neoplasm of female breast, uns pecified estrogen receptor status, unspecified laterality, unspecified site of breast (H) Benign essential hypertension Essential hypertension, benign Hyperlipidemia LDL goal <130 Other and unspecified hyperlipidemia Acute idiopathic gout of left foot Vitamin D deficiency Unspecified vitamin D deficiency Trigger finger, acquired Trigger finger (acquired) Right hip pain Pain in joint, pelvic region and thigh Screening for hypothyroidism Screening for thyroid disorder Nonspecific finding on examination of ur ine Other nonspecific finding on examination of urine documented in this encounter Additional Health Concerns Infection Onset Date Last Indicated Resolved Time 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
--- OUTSIDE RECORDS SUMMARY | 2022-08-20 14:24 | XMS_ITS | Encounter Summary ---
:1945 Author Organization [place] Address [address] [facility] [place] [address] Care Team Providers Name Role Phone Simon Claros MD Primary Care Provider Simon Claros MD Unavailable Reason for Referral Diagnostic Imaging Mammo (Routine) - Closed Specialty Diagnoses / Procedures Referred By Contact Refer red To Contact Diagnoses Mastodynia of left breast Aaron Garcia MD Procedures MA Diagnostic Bilateral w/Ricardo [place] [facility] [address] [address] Referral ID Status Reason Start Date Expiration Date Visits Requ ested Visits Authorized [id number] Closed 03/20/2020 03/20/2021 1 1 Reason for Visit Diagnostic Imaging Mammo (Routine) - Closed Specialty Diagnoses / Procedures Referred By Contact Refer red To Contact Diagnoses Mastodynia of left breast Aaron Garcia MD Procedures MA Diagnostic Bilateral w/Ricardo [place] [facility] [address] [address] Referral ID Status Reason Start Date Expiration Date Visits Requ ested Visits Authorized [id number] Closed 03/20/2020 03/20/2021 1 1 Encounter Details Date Type Department Care Team Description 03/22/2020 Hospital Encounter [facility] Aaron Garcia Mast odynia of left [place] [facility] [address], [address] [place] [phone] Social History Tobacco Use Types Packs/Day Years [...] 10/26/2022 Lab Oncology Yris Perez MD 420 [facility] 286 [place] [address] (Wo rk) 11/03/2022 Oncology Visit Oncology Yris Perez MD [address] [place] [address] [address] [place] [address] (Wo rk) documented as of this encounter Procedures Procedure Name Priority Date/Time Associated Comments Diagnosis MA DIAGNOSTIC Routine 03/22/2020 12:51 PM Mastodynia of left R esults for this BILATERAL W/ RICARDO CDT breast procedure are in the results section. documented in this encounter Results MA Diagnostic Bilateral w/Ricardo (03/22/2020 12:51 PM CDT) Anatomical Region Laterality Modality Breast Bilateral [...] findings identi fied. Aaron Garcia MD IMG MAMMOGRAPHY ORDERABLES documented in this encounter Visit Diagnoses Diagnosis Mastodynia of left breast documented in this encounter Additional Health Concerns Infection Onset Date Last Indicated Resolved Time 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, 01/08/2017 9 06/08/17, 08/26/17 documented as of this encounter Care Teams Tool And Gauge Inspector Relationship Specialty Start Date End Date Simon Claros MD PCP - General Internal Medicine 09/22/12 08/20/21 Simon Claros MD Assigned PCP 06/18/16 03/01/21 [address] [place] [place], [place] [phone] documented as of this encounter
--- OUTSIDE RECORDS SUMMARY | 2022-08-20 14:24 | XMS_ITS | Encounter Summary ---
:1945 Author Organization [place] Address [address] [place], [place] [address]e. 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 documented as of this encounter Plan of Treatment Upcoming Encounters Date Type Specialty Care Team Description 10/26/2022 Lab Oncology Yirs Perez MD [address] [place] [id number] (Wo rk) 11/03/2022 Oncology Visit Oncology Yris Perez MD [address] [address] (Wo rk) documented as of this encounter Visit Diagnoses Not on filedocumented in this encounter Additional Health Concerns Infection Onset Date Last Indicated Resolved Time 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, 01/08/2017 9 06/08/17, 08/26/17 documented as of this encounter Care Teams Gravity Prospecting Operator Helper Relationship Specialty Start Date End Date Simon Claros MD PCP - General Internal Medicine 09/22/12 08/20/21 Simon Claros MD Assigned PCP 06/18/16 03/01/21 [address] [facility] [address] [place] [phone] documented as of this encounter
--- OUTSIDE RECORDS SUMMARY | 2022-08-20 14:24 | XMS_ITS | Encounter Summary ---
:1945 Author Organization [place] Address [facility] [place] [address] Care Team Providers Name Role Phone Simon Claros MD Primary Care Provider Simon Claros MD Unavailable Encounter Details Date Type Department Care Team Description 03/05/2020 [facility] Only [facility] Twila Jansen, [facility] [address] [place] [address], [address] [place] [address] Social History Tobacco Use Types Packs/Day Years Used Date Passive Smoke Exposure - Never Smoker Smokeless Tobacco: Never Used Alcohol Use Standard Drinks/Week Comments No 0 (1 standard drink = 0.6 oz pure alcoho l) Sex Assigned at Date Recorded Female 01/27/2022 12:36 PM CDT documented as of this encounter Plan of Treatment Upcoming Encounters Date Type Specialty Care Team Description 10/26/2022 Lab Oncology Yris Perez MD [address] [place] [id number] (Madeleine rk) 11/03/2022 Oncology Visit Oncology Yris Perez MD [address] [address] (Wo rk) documented as of this encounter Visit Diagnoses Not on filedocumented in this encounter Additional Health Concerns Infection Onset Date Last Indicated Resolved Time 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, 01/08/2017 9 06/08/17, 08/26/17 documented as of this encounter Care Teams Exercise Instruct Relationship Specialty Start Date End Date Simon Claros MD PCP - General Internal Medicine 09/22/12 08/20/21 Simon Claros MD Assigned PCP 06/18/16 03/01/21 [address] [facility] [address] [place] [phone] documented as of this encounter
--- OUTSIDE RECORDS SUMMARY | 2022-08-20 14:24 | XMS_ITS | Encounter Summary ---
:1945 Author Organization [place] Address [address] [facility] [place] [address] Care Team Providers Name Role Phone Simon Claros MD Primary Care Provider Simon Claros MD Unavailable Deidra Whitehead DPM, Podiatry/Foot and Ankle Unavailable Surgery Jordin Allred DPM Unavailable Chan Olivarez MD Unavailable Simon Claros MD Unavailable Chan Olivarez MD Unavailable Chan Duke MD Primary Care Provider Chan Duke MD Unavailable Aaron Garcia MD Unavailable Yris Perez MD Unavailable Reason for Visit Reason Comments Medication Refill Encounter Details Date Type Department Care Team Description 05/08/2020 Refill [facility] Simon Claros MD Medication Refill Latta [address] [facility] 65[address] [facility], [address] [place] [address] [place] [address] [phone] Social History Tobacco Use Types Packs/Day Years [...] Yris Perez MD 420 [facility] 286 [place] [address] (Wo rk) 11/03/2022 Oncology Visit Oncology Yris Perez MD 420 [facility] 286 [place] [address] (Wo rk) documented as of this encounter Visit Diagnoses Diagnosis Acute idiopathic gout of left foot documented in this encounter Additional Health Concerns Infection Onset Date Last Indicated Resolved Time 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, 01/08/2017 9 06/08/17, 08/26/17 documented as of this encounter Care Teams Purchasing Officer Relationship Specialty Start Date End Date Simon Claros MD PCP - General Internal Medicine 09/22/12 08/20/21 Chan Duke MD PCP - General Internal Medicine 08/21/21 [address] [place] [place] [id number] Simon Claros MD Assigned PCP 06/18/16 03/01/21 [address] [place] [phone] Deidra Whitehead DPM, Assigned Musculoskeletal 09/06/20 10/26/20 Podiatry/Foot and Provider Ankle Surgery [address] [place], [place] [phone] Jordin Allred, Assigned Musculoskeletal 03/02/21 DPM Provider [address] [place] [address] Chan Olivarez MD Assigned PCP 03/02/21 04/09/[address] [place] [phone] Simon Claros MD Assigned PCP 04/10/21 05/31/[address] [place] [address] [place] [phone] Chan Olivarez MD Assigned PCP 06/01/21 08/23/[address] [place] [phone] Chan Duke MD Assigned PCP 08/24/[address] [place] [address] [place], [place] [address] Aaron Garcia Assigned Cancer Care 10/12/21 05/15/22 MD Max Provider 500 [place] [address] Yris Perez Assigned Cancer Care 05/16/22 MD Ingrid Provider 420 [facility] 286 [place] [address] documented as of this encounter
--- OUTSIDE RECORDS SUMMARY | 2022-08-20 14:24 | XMS_ITS | Encounter Summary ---
:1945 Author Organization [place] Address [address] [facility] [address] [place] [address] Care Team Providers Name Role Phone Simon Claros MD Primary Care Provider Simon Claros MD Unavailable Reason for Visit Reason Comments Musculoskeletal Problem Encounter Details Date Type Department Care Team Description 12/05/2020 Office Visit [facility] Simon Claros, Chroni c obstructive pulmonary disease, unspecified COPD type (H) (Primary Dx); Clinic [facility] Malignant neoplasm of female breast, uns pecified estrogen receptor status, unspecified laterality, unspecified site of breast (H); [address] Benign es sential hypertension; [place], [address] [place] [address] Hyperlipidemia LDL goal <130; [place] [address] [place] Right hip pain; [phone] [address] Acute idiopathic gout of left foot; [phone] Diverticulitis of colon (Work) Social History Tobacco Use Types Packs/Day Years Used Date Passive Smoke Exposure - Never Smoker Smokeless Tobacco: Never Used Alcohol Use Standard Drinks/Week Comments No 0 (1 standard drink = 0.6 oz pure alcoho l) Sex Assigned at Date Recorded Female 01/27/2022 12:36 PM CDT COVID-19 Exposure Response Date Recorded In the last month, have you been in contact with No / Unsure 12/05/2020 10:29 AM BLOW MOLD OPERATOR someone who was confirmed or suspected to have Coronavirus / COVID-19? documented as of this encounter Last Filed Vital Signs Vital Sign Reading Time Taken Comments Blood Pressure 120/71 12/05/2020 10:48 AM BLOW MOLD OPERATOR Pulse 78 12/05/2020 10:48 AM BLOW MOLD OPERATOR Temperature 36.2 ??C (97.1 ??F) 12/05/2020 10:48 AM BLOW MOLD OPERATOR Respiratory Rate - - Oxygen Saturation 96% 12/05/2020 10:48 AM BLOW MOLD OPERATOR Inhaled Oxygen Concentration - - Weight 66.2 kg (146 lb) 12/05/2020 10:48 AM BLOW MOLD OPERATOR Height 167.6 cm (5' 6) 12/05/2020 10:48 AM BLOW MOLD OPERATOR Body Mass Index 23.57 12/05/2020 10:48 AM BLOW MOLD OPERATOR documented in this encounter Progress Notes Simon Claros MD - 12/05/2020 10:30 AM CST Assessment & Plan Problem List Items Addressed This Visit None 1. Chronic obstructive pulmonary disease, unspecified COPD type (H) 2. Malignant neoplasm of female breast, unspecified estrogen receptor status, unspecified laterality, unspecified site of breast (H) 3. Benign essential hypertension 4. Hyperlipidemia LDL goal <130 5. Right hip pain 6. Acute idiopathic gout of left foot 7. Diverticulitis of colon FUTURE APPOINTMENTS: - Follow-up visit in 3 mo No follow-ups on file. Simon Claros MD [facility] [place] is a 75 year old who presents to clinic today for the following health issues HPI Paresthesias in the right great toe Musculoskeletal problem/pain Onset/Duration: off and on for a while Description Location: foot - right Joint Swelling: no Redness: no Pain: no Warmth: no Intensity: moderate Progression of Symptoms: same Accompanying signs and symptoms: Fevers: no Numbness/tingling/weakness: YES History Trauma to the area: no Recent illness: no Previous similar problem: no Previous evaluation: no Precipitating or alleviating factors: Aggravating factors include: none Therapies tried and outcome: nothing Handicap parking form completed Review of Systems Constitutional, HEENT, cardiovascular, pulmonary, gi and gu systems are negative, except as otherwise noted. Objective BP 120/71 (BP Location: Right arm, Patient Position: Sitting, Cuff Size: Adult Regular) Pulse 78 Temp 97.1 ??F (36.2 ??C) (Temporal) Ht 1.676 m (5' 6) Wt 66.2 kg (146 lb) SpO2 96% BMI 23.57 kg/m?? There were no vitals taken for this visit. There is no height or weight on file to calculate BMI. Physical Exam GENERAL: healthy, alert and no [...] no gross musculoskeletal defects noted, no edema Paresthesias of the right great toe mapped to include the area medial to the first toe extending to the second toe from the MTP distally. MOLD OPERATOR documented in this encounter Plan of Treatment Upcoming Encounters Date Type Specialty Care Team Description 10/26/2022 Lab Oncology Yris Perez MD [address] [address] (Wo hitesh) 11/03/2022 Oncology Visit Oncology Yris Perez MD [address] [phone] (Wo hitesh) documented as of this encounter Visit Diagnoses Diagnosis Chronic obstructive pulmonary disease, u nspecified COPD type (H) - Primary Malignant neoplasm of female breast, uns pecified estrogen receptor status, unspecified laterality, unspecified site of breast (H) Benign essential hypertension Essential hypertension, benign Hyperlipidemia LDL goal <130 Other and unspecified hyperlipidemia Right hip pain Pain in joint, pelvic region and thigh Acute idiopathic gout of left foot Diverticulitis of colon Diverticulitis of colon (without mention of hemorrhage) documented in this encounter Additional Health Concerns Infection Onset Date Last Indicated Resolved Time 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, 01/08/2017 9 06/08/17, 10/12/17 documented as of this encounter Care Teams Athletic Agent Relationship Specialty Start Date End Date Simon Claros MD PCP - General Internal Medicine 09/22/12 08/20/21 Simon Claros MD Assigned PCP 06/18/16 03/01/21 [address] [facility] [address] [place] [phone] documented as of this encounter
--- OUTSIDE RECORDS SUMMARY | 2022-08-20 14:24 | XMS_ITS | Encounter Summary ---
:1945 Author Organization [place] Address [facility] [place] [address] Care Team Providers Name Role Phone Simon Claros MD Primary Care Provider Simon Claros MD Unavailable Encounter Details Date Type Department Care Team Description 08/21/2020 Travel Social History Tobacco Use Types Packs/Day [...] been in contact with No / Unsure 08/21/2020 2:21 PM CDT someone who was confirmed or suspected to have Coronavirus / COVID-19? documented as of this encounter Plan of Treatment Upcoming Encounters Date Type Specialty Care Team Description 10/26/2022 Lab Oncology Yris Perez MD [address] [place] [address] (Wo rk) 11/03/2022 Oncology Visit Oncology Yris Perez MD [address] [address] (Wo rk) documented as of this encounter Visit Diagnoses Not on filedocumented in this encounter Additional Health Concerns Infection Onset Date Last Indicated Resolved Time 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, 01/08/2017 9 06/08/17, 08/26/17 documented as of this encounter Care Teams Home Performance Consultant Relationship Specialty Start Date End Date Simon Claros MD PCP - General Internal Medicine 09/22/12 08/20/21 Simon Claros MD Assigned PCP 06/18/16 03/01/21 [address] [facility] [address] [place] [phone] documented as of this encounter
--- OUTSIDE RECORDS SUMMARY | 2022-08-20 14:24 | XMS_ITS | Encounter Summary ---
:1945 Author Organization [place] Address [address] [facility] [place] [address] Care Team Providers Name Role Phone Simon Claros MD Primary Care Provider Simon Claros MD Unavailable Reason for Referral Consultation (Routine) - Closed Specialty Diagnoses / Procedures Referred By Contact Refer red To Contact Medical Oncology Diagnoses Malignant neoplasm of female breast, unspecified estrogen receptor status, unspecified laterality, unspecified site of breast (H) Chan Olivarez MD Cancer Clinic [address] [place] [phone] [facility] [place], [place] [phone] Phone: Referral ID Status Reason Start Date Expiration Date Visits Requ ested Visits Authorized [id number] Closed 01/13/2021 01/13/2022 1 1 ULATION CREW LEADER Reason for Visit Reason Comments Establish Care Rib Pain Encounter Details Date Type Department Care Team Description 01/13/2021 Office Visit [facility] Chan Mishra Benign es sential hypertension (Primary Dx); Clinic Shelby Ash MD Hyperlipidemia LDL goal <130; [place] [address] Other back pain, unspecified chronicity; [address] Malignant neoplasm of female breast, unspecified estrogen receptor status, unspecified laterality, unspecified site of breast (H) [place] [phone] Social History Tobacco Use Types Packs/Day Years [...] with No / Unsure 01/13/2021 9:41 AM CIRCULATION CREW LEADER someone who was confirmed or suspected to have Coronavirus / COVID-19? documented as of this encounter Last Filed Vital Signs Vital Sign Reading Time Taken Comments Blood Pressure 124/64 01/13/2021 9:53 AM CIRCULATION CREW LEADER Pulse 77 01/13/2021 9:53 AM CIRCULATION CREW LEADER Temperature 36.6 ??C (97.9 ??F) 01/13/2021 9:53 AM CIRCULATION CREW LEADER Respiratory Rate 15 01/13/2021 9:53 AM CIRCULATION CREW LEADER Oxygen Saturation 96% 01/13/2021 9:53 AM CIRCULATION CREW LEADER Inhaled Oxygen Concentration - - Weight 67.3 kg (148 lb 6.4 oz) 01/13/2021 9:53 AM CIRCULATION CREW LEADER Height 167.6 cm (5' 6) 01/13/2021 9:53 AM CIRCULATION CREW LEADER Body Mass Index 23.95 01/13/2021 9:53 AM CIRCULATION CREW LEADER documented in this encounter Progress Notes Chan Olivarez MD - 01/13/2021 9:40 AM CST Assessment & Plan Benign essential hypertension Stable on therapy continue with current medical management. Hyperlipidemia LDL goal <130 Labs reviewed and suggest annual follow-up date in May Other back pain, unspecified chronicity Resovling, assume musculoskeletal. Malignant neoplasm of female breast, unspecified estrogen receptor status, unspecified laterality, unspecified site of breast (H) Referral placed for transfer of care to secondary oncologist - Oncology/Hematology Adult Referral; Future Work on weight loss Regular exercise Return for Physical Exam. Chan Olivarez MD [facility] Ashtyn Gilliland is a 75 year old who presents for the following health issues HPI New Patient/Transfer of Care- previous care at [facility] Musculoskeletal problem/pain ?? Duration: last week, now improved ?? Description Location: left side rib ?? Intensity: moderate ?? Accompanying signs and symptoms: swelling, tender to the touch ?? History Previous similar problem: no Previous evaluation: none ?? Precipitating or alleviating factors: Trauma or overuse: no - began after having left mid back spasm Aggravating factors include: tender to the touch ?? Therapies tried and outcome: Now improved Review of Systems CONSTITUTIONAL: NEGATIVE for fever, chills, change in weight EYES: NEGATIVE for vision changes or irritation ENT/MOUTH: NEGATIVE for ear, mouth and throat problems RESP: NEGATIVE for significant cough or SOB CV: NEGATIVE for chest pain, palpitations or peripheral edema GI: NEGATIVE for nausea, abdominal pain, heartburn, or change in bowel habits : NEGATIVE for frequency, dysuria, or hematuria MUSCULOSKELETAL: NEGATIVE for significant arthralgias or myalgia PSYCHIATRIC: NEGATIVE for changes in mood or affect Objective BP 124/64 Pulse 77 Temp 97.9 ??F (36.6 ??C) (Temporal) Resp 15 Ht 1.676 m (5' 6) Wt 67.3 kg (148 lb 6.4 oz) SpO2 96% BMI 23.95 kg/m?? Body mass index is 23.95 kg/m??. Physical Exam GENERAL: alert and no distress EYES: Eyes grossly [...] S1 S2, no S3 or S4, no click or rub, no peripheral edema and peripheral pulses strong MS: no gross musculoskeletal defects noted PSYCH: mentation appears normal, affect normal/bright ULATION CREW LEADER documented in this encounter Plan of Treatment Upcoming Encounters Date Type Specialty Care Team Description 10/26/2022 Lab Oncology Yris Perez MD [address] [address] (Wo rk) 11/03/2022 Oncology Visit Oncology Yris Perez MD 420 [facility] 286 [place] [address] (Wo rk) Scheduled Referrals Name Type Priority Associated Diagnoses Order S chedule Oncology/Hematology Referral Routine Malignant neoplasm of Expected: 01/13/2021, Adult Referral female breast, Expires: unspecified estrogen receptor status, unspecified laterality, unspecified site of breast (H) documented as of this encounter Visit Diagnoses Diagnosis Benign essential hypertension - Primary Essential hypertension, benign Hyperlipidemia LDL goal <130 Other and unspecified hyperlipidemia Other back pain, unspecified chronicity Malignant neoplasm of female breast, uns pecified estrogen receptor status, unspecified laterality, unspecified site of breast (H) documented in this encounter Additional Health Concerns Infection Onset Date Last Indicated Resolved Time 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, 01/08/2017 9 06/08/17, 08/26/17 documented as of this encounter Care Teams Membership Director Relationship Specialty Start Date End Date Simon Claros MD PCP - General Internal Medicine 09/22/12 08/20/21 Simon Claros MD Assigned PCP 06/18/16 03/01/21 [address] [place] [address] [place] [phone] documented as of this encounter
--- OUTSIDE RECORDS SUMMARY | 2022-08-20 14:24 | XMS_ITS | Encounter Summary ---
:1945 Author Organization [place] Address [address] [facility] [place] [address] Care Team Providers Name Role Phone Simon Claros MD Primary Care Provider Simon Claros MD Unavailable Reason for Referral Diagnostic Imaging XR (Routine) - Closed Specialty Diagnoses / Procedures Referred By Contact Refer red To Contact Diagnoses Abdominal pain, left lower quadrant Simon Claros MD Procedures XR Abdomen 2 Views [address] [place] [address] [place] [address] Referral ID Status Reason Start Date Expiration Date Visits Requ ested Visits Authorized [id number] Closed 08/21/2020 08/21/2021 1 1 Reason for Visit Reason Comments Abdominal Pain Encounter Details Date Type Department Care Team Description 08/21/2020 Office Visit [facility] Simon Claros, Benign essential hypertension (Primary Dx); Clinic [facility] Abdominal pain, left lower quadrant; [address] Diverticu litis of colon South, [address] [place] [address] [place] [address] [place] [phone] [address] Social History Tobacco Use Types Packs/Day [...] Sign Reading Time Taken Comments Blood Pressure 138/71 08/21/2020 2:30 PM CDT Pulse 70 08/21/2020 2:30 PM CDT Temperature 36.2 ??C (97.1 ??F) 08/21/2020 2:30 PM CDT Respiratory Rate - - Oxygen Saturation 96% 08/21/2020 2:30 PM CDT Inhaled Oxygen Concentration - - Weight 65.5 kg (144 lb 8 oz) 08/21/2020 2:30 PM CDT Height 167.6 cm (5' 6) 08/21/2020 2:30 PM CDT Body Mass Index 23.32 08/21/2020 2:30 PM CDT documented in this encounter Progress Notes Simon Claros MD - 08/21/2020 2:30 PM CDT Subjective Darshana Brooks is a 74 year old female who presents to clinic today for the following health issues: HPI Abdominal/Flank Pain Onset/Duration: started on Wednesday Description: Character: Dull ache Location: lower left Radiation: across the abdomen Intensity: mild Progression of Symptoms: improving Accompanying Signs & Symptoms: Fever/Chills: YES Gas/Bloating: YES Nausea: no Vomitting: no Diarrhea: no Constipation: YES Dysuria or Hematuria: no History: Trauma: no Previous similar pain: no Previous tests done: none Precipitating factors: Does the pain change with: Food: YES Bowel Movement: YES Urination: no Other factors: no Therapies tried and outcome: None No LMP recorded. Patient is postmenopausal. History of recent obstipation with subsequent development of left lower quadrant abdominal pain associated with feverishness. Was tested for COVID-19 and was negative. Review of Systems Constitutional, HEENT, cardiovascular, pulmonary, gi and gu systems are negative, except as otherwise noted. Objective BP 138/71 (BP Location: Right arm, Patient Position: Sitting, Cuff Size: Adult Regular) Pulse 70 Temp 97.1 ??F (36.2 ??C) (Temporal) Ht 1.676 m (5' 6) Wt 65.5 kg (144 lb 8 oz) SpO2 96% BMI23.32 kg/m?? Body mass index is 23.32 kg/m??. Physical Exam GENERAL: healthy, alert and no distress NECK: no adenopathy, no asymmetry, masses, or scars and thyroid normal to palpation RESP: lungs clear to auscultation - no rales, rhonchi or wheezes CV: regular rate and rhythm, normal S1 S2, no S3 or S4, no murmur, click or rub, no peripheral edemaand peripheral pulses strong ABDOMEN: soft, no hepatosplenomegaly, no masses and bowel sounds normal, left lower quadrant guarding with localized rebound. MS: no gross musculoskeletal defects noted, no edema X-ray shows prominent colonic stool throughout CBC shows WBC 11.7 Assessment & Plan Benign essential hypertension Well-controlled with current therapy - CBC with platelets - JUST IN CASE Abdominal pain, left lower quadrant See below - XR Abdomen 2 Views; Future Diverticulitis of colon Clinically the patient has acute diverticulitis complicated by obstipation. Recommend initiation of Cipro with Flagyl. I recommended using MiraLAX regularly to maintain softer stools and to eliminate the obstipation. Reviewed diet starting with a clear liquid diet advancing to a soft bland diet and returning to clinic in approximately 10 days FUTURE APPOINTMENTS: - Follow-up visit in 2 wks No follow-ups on file. 30 minutes were spent for this evaluation including greater than 50% of the time spent in counselingand coordinating care. Simon Claros MD [facility] documented in this encounter Plan of Treatment Upcoming Encounters Date Type Specialty Care Team Description 10/26/2022 Lab Oncology Yris Perez MD [address] [id number] (Madeleine proctor) 11/03/2022 Oncology Visit Oncology Yris Perez MD [address] [address] (Wo rk) documented as of this encounter Procedures Procedure Name Priority Date/Time Associated Diagnosis Comme nts CBC WITH PLATELETS Routine 08/21/2020 2:41 PM Benign essential Results for this CDT hypertension procedure are i n the results section. documented in this encounter Results XR Abdomen 2 Views (08/21/2020 3:14 PM CDT) Anatomical Region Laterality Modality Abdomen/Pelvis Computed Radiography Specimen (Source) Anatomical Location Collection Method / Collectio n Time Received Time / Laterality Volume Impressions 08/21/2020 4:15 PM CDT IMPRESSION: Nonobstructive gas pattern. Moderate volume retained colonic stool. No free air, organomegaly , or abnormal calculus. Right hip replacement. ZAY RODRÍGUEZ MD Narrative 08/21/2020 4:15 PM CDT ABDOMEN TWO VIEWS 08/21/2020 3:14 PM HISTORY: Abdominal pain, left lower quad rant COMPARISON: None. Procedure Note Zay Rodríguez MD - 08/21/2020Forma tting of this note might be different from the original. ABDOMEN TWO VIEWS 08/21/2020 3:14 PM HISTORY: Abdominal pain, left lower quad rant COMPARISON: None. IMPRESSION: Nonobstructive gas pattern. Moderate volume retained colonic stool. No free air, organomegaly , or abnormal calculus. Right hip replacement. ZAY RODRÍGUEZ MD Smion Claros MD IMG DIAGNOSTIC IMAGING ORDER [place] (ABNORMAL) CBC with platelets (08/21/2020 2:41 PM CDT) Analysis Performed At Patho logist Time Signature WBC 11.7 (H) 4.0 - 11.0 08/21/2020 [facility] 10e9/L 3:09 PM CDT [facility] RBC Count 4.37 3.8 - 5.2 08/21/2020 [facility] 10e12/L 3:09 PM CDT [facility] Hemoglobin 14.6 11.7 - 08/21/2020 [facility] 15.7 g/dL 3:09 PM CDT [facility] Hematocrit 42.8 35.0 - 08/21/2020 [facility] 47.0 % 3:09 PM CDT [facility] MCV 98 78 - 100 08/21/2020 [facility] fl 3:09 PM CDT [facility] MCH 33.4 (H) 26.5 - 08/21/2020 [facility] 33.0 pg 3:09 PM CDT [facility] MCHC 34.1 31.5 - 08/21/2020 [facility] 36.5 g/dL 3:09 PM CDT [facility] RDW 13.7 10.0 - 08/21/2020 [facility] 15.0 % 3:09 PM CDT [facility] Platelet Count 227 150 - 450 08/21/2020 [facility] 10e9/L 3:09 PM CDT [facility] Specimen Anatomical Collection Method Collection Time Receive d Time (Source) Location / / Volume Laterality Blood specimen 08/21/2020 2:41 PM 020 2:42 (specimen) CDT PM CDT Simon Claros MD LAB - BLOOD ORDERABLES Performing Organization Address City/State/ZIP Code Phon e Number 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
--- OUTSIDE RECORDS SUMMARY | 2022-08-20 14:24 | XMS_ITS | Encounter Summary ---
:1945 Author Organization [place] Address [address] [facility] [place] [address] Care Team Providers Name Role Phone iSmon Claros MD Primary Care Provider Simon Claros [...] Details Date Type Department Care Team Description 08/08/2020 Refill [facility] Simon Claros MD Medication Refill [place] [address] [facility] [address] [facility], [address] [place] [address] [place] [address] [phone] Social History Tobacco Use Types Packs/Day Years [...] 10/26/2022 Lab Oncology Yris Perez MD [address] [facility] [address] [place] [address] (Wo rk) 11/03/2022 Oncology Visit Oncology Yris Perez MD [address] [facility] [address] [place] [address] (Wo rk) documented as of this encounter Visit Diagnoses Diagnosis Acute idiopathic gout of left foot documented in this encounter Additional Health Concerns Infection Onset Date Last Indicated Resolved Time 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, 01/08/2017 9 06/08/17, 08/26/17 documented as of this encounter Care Teams Manager Rfid Relationship Specialty Start Date End Date Simon Claros MD PCP - General Internal Medicine 09/22/12 08/20/21 Chan Duke MD PCP - General Internal Medicine 08/21/21 [address] [place] [address] [place] [id number] Simon Claros MD Assigned PCP 06/18/16 03/01/21 [address] [place] [address] [place] [phone] Deidra Whitehead DPM, Assigned Musculoskeletal 09/06/20 10/26/20 Podiatry/Foot and Provider Ankle Surgery [address] [place], [place] [address] Jordin Allred, Assigned Musculoskeletal 03/02/21 DPM Provider [address] [place] [address] Chan Olivarez MD Assigned PCP 03/02/21 04/09/[address] [place] [phone] Simon Claros MD Assigned PCP 04/10/21 05/31/[address] [place] [address] [place] [phone] Chan Olivarez MD Assigned PCP 06/01/21 08/23/21 [address] [place] [phone] Chan Duke MD Assigned PCP 08/24/[address] [place] [address] [place], [place] [address] Aaron Garcia Assigned Cancer Care 10/12/21 05/15/22 MD Max Provider [address] [place] [address] Yris Perez Assigned Cancer Care 05/16/22 MD Ingrid Provider 420 [facility] [address] [place] [address] documented as of this encounter
--- OUTSIDE RECORDS SUMMARY | 2022-08-20 14:24 | XMS_ITS | Encounter Summary ---
:1945 Author Organization [place] Address [address] [facility] [place] [address] Care Team Providers Name Role Phone Simon Claros MD Primary Care Provider Simon Claros MD Unavailable Reason for Visit Diagnostic Imaging XR (Routine) - Closed Specialty Diagnoses / Procedures Referred By Contact Refer red To Contact Diagnoses Abdominal pain, left lower quadrant Simon Claros MD Procedures XR Abdomen [address] [facility] [address] [place] [address] [place] [address] Referral ID Status Reason Start Date Expiration Date Visits Requ ested Visits Authorized [id number] Closed 08/21/2020 08/21/2021 1 1 Encounter Details Date Type Department Care Team Description 08/21/2020 Ancillary Procedure [facility] Simon Claros dominal pain, left Clinic [place] Sr MD lower quadrant [address] [facility] [address] [facility] [address] [place] [place] [address] [place] [phone] [phone] Social History Tobacco Use Types Packs/Day [...] 10/26/2022 Lab Oncology Yris Perez MD [address] [phone] (Wo rk) 11/03/2022 Oncology Visit Oncology Yris Perez MD [address] [phone] (Wo rk) documented as of this encounter Procedures Procedure Name Priority Date/Time Associated Diagnosis Comme nts XR ABDOMEN 2 VIEWS Routine 08/21/2020 3:14 PM Abdominal pain, left Results for this CDT lower quadrant procedure are in the results section. documented [...] , or abnormal calculus. Right hip replacement. SINA RODRÍGUEZ MD Narrative 08/21/2020 4:15 PM CDT ABDOMEN TWO VIEWS 08/21/2020 3:14 PM HISTORY: Abdominal pain, left lower quad rant COMPARISON: None. Procedure Note Sina Rodríguez MD - 08/21/2020Forma tting of this note might be different from the original. ABDOMEN TWO VIEWS 08/21/2020 3:14 PM HISTORY: Abdominal pain, left lower quad rant COMPARISON: None. IMPRESSION: Nonobstructive gas pattern. Moderate volume retained colonic stool. No free air, organomegaly , or abnormal calculus. Right hip replacement. 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
--- OUTSIDE RECORDS SUMMARY | 2022-08-20 14:24 | XMS_ITS | Encounter Summary ---
:1945 Author Organization [place] Address [facility] 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
--- OUTSIDE RECORDS SUMMARY | 2022-08-20 14:24 | XMS_ITS | Encounter Summary ---
:1945 Author Organization [place] Address [address] [place], [place] [address]e. 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
--- OUTSIDE RECORDS SUMMARY | 2022-08-20 14:24 | XMS_ITS | Encounter Summary ---
:1945 Author Organization [place] Address [facility] [place] [address] Care Team Providers Name Role Phone Simon Claros MD Primary Care Provider Simon Claros MD Unavailable Deidra Whitehead DPM, Podiatry/Foot and Ankle Unavailable Surgery Jordin Allred DPM Unavailable Chan Olivarez MD Unavailable Simon Claros MD Unavailable Chan Olivarez MD Unavailable Chan Duke MD Primary Care Provider Chan Duke MD Unavailable Aaron Garcia MD Unavailable Reason for Visit Reason Onset Date Comments Medication Request 03/04/2020 ESTRADIOL PO Encounter Details Date Type Department Care Team Description 03/04/2020 Telephone [facility] Simon Claros, Medica tion Request Clinic [place] HINES (ESTRADIOL PO ) [address] [facility], [address] [facility] [address] [place] [address] [place] [address] [place] [phone] [phone] Social History Tobacco Use Types Packs/Day [...] with No / Unsure 10/15/2021 12:43 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 documented as of this encounter Miscellaneous Notes Telephone Encounter - Judith David - 03/04/2020 12:[address] Claros, patient is requesting extended refill to every 6 months for Estradiol cream due to dispensing fee. Made an appt for her today at 2:15 pm. Judith David MA on 03/04/2020 at 12:53 PM Telephone Encounter - Monica Wu - 03/04/2020 11:39 AM CDT Reason for Call: Medication or medication refill: Do you use a [facility]? Name of the pharmacy and phone number for the current request: [id number] [address] [facility] [address] [place] [address] [address] [place] Name of the medication requested: ESTRADIOL PO Other request: pt is requesting a 6 month supply amount since the dispensing fee has doubled for this cream and she only has 1-2 days dosage left Can we leave a detailed message on this number? YES Phone number patient can be reached at: Cell number on file: Telephone Information: Best Time:any Call taken on 03/04/2020 at 11:40 AM by Monica Wu documented in this encounter Plan of Treatment Upcoming Encounters Date Type Specialty Care Team Description 10/26/2022 Lab Oncology Yris Perez MD [address] [place] [address] (Wo rk) 11/03/2022 Oncology Visit Oncology Yris Perez MD 420 [facility] [address] [place], [place] [address] (Wo rk) documented as of this encounter Visit Diagnoses Not on filedocumented in this encounter Additional Health Concerns Infection Onset Date Last Indicated Resolved Time 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, 01/08/2017 9 06/08/17, 08/26/17 documented as of this encounter Care Teams Senior Bookkeeper Relationship Specialty Start Date End Date Simon Claros MD PCP - General Internal Medicine 09/22/12 08/20/21 Chan Duke MD PCP - General Internal Medicine 08/21/[address] [place] [address] [place], [place] [address] Simon Claros MD Assigned PCP 06/18/16 03/01/[address] [place] [address] [place] [address] Deidra Whitehead, DPM, Assigned Musculoskeletal 09/06/20 10/26/20 Podiatry/Foot and Provider Ankle Surgery [address] [place] [place] [address] Jordin Allred, Assigned Musculoskeletal 03/02/21 DPM Provider [address] [place] [address] Chan Olivarez MD Assigned PCP 03/02/21 04/09/[address] [place] [phone] Simon Claros MD Assigned PCP 04/10/21 05/31/[address] [place] [place] [address] Chan Olivarez MD Assigned PCP 06/01/21 08/23/21 [address] [place] [phone] Chan Duke MD Assigned PCP 08/24/[address] [facility] 150 [place] [address] Aaron Garcia Assigned Cancer Care 10/12/21 05/15/22 MD Max Provider 500 [place], [place] [address] documented as of this encounter
--- OUTSIDE RECORDS SUMMARY | 2022-08-20 14:24 | XMS_ITS | Encounter Summary ---
:1945 Author Organization [place] Address [facility] [place] [address] Care Team Providers Name Role Phone Simon Claros MD Primary Care Provider Simon Claros MD Unavailable Encounter Details Date Type Department Care Team Description 03/22/2020 Travel Social History Tobacco Use Types Packs/Day [...] Description 10/26/2022 Lab Oncology Yris Perez MD [address] [place] [address] (Wo rk) 11/03/2022 Oncology Visit Oncology Yris Perez MD [address] [address] (Wo rk) documented as of this encounter Visit Diagnoses Not on filedocumented in this encounter Additional Health Concerns Infection Onset Date Last Indicated Resolved Time 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
--- OUTSIDE RECORDS SUMMARY | 2022-08-20 14:24 | XMS_ITS | Encounter Summary ---
:1945 Author Organization [place] Address [address] [place], [place] [address]e. 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
--- OUTSIDE RECORDS SUMMARY | 2022-08-20 14:24 | XMS_ITS | Encounter Summary ---
:1945 Author Organization [place] Address 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 [address] [place] [phone] documented as of this encounter
--- OUTSIDE RECORDS SUMMARY | 2022-08-20 14:25 | XMS_ITS | Encounter Summary ---
:1945 Author Organization [place] Address 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
--- OUTSIDE RECORDS SUMMARY | 2022-08-20 14:25 | XMS_ITS | Encounter Summary ---
:1945 Author Organization [place] Address [address] [facility] [place] [address] Care Team Providers Name Role Phone Simon Claros MD Primary Care Provider Simon Claros MD Unavailable Reason for Visit Reason Comments Medication Refill allopurinol Encounter Details Date Type Department Care Team Description 03/02/2019 Refill [facility] Simon Claros MD Medication Refill [place] [address] (allopurinol) [address], [address] [place], [place] [phone] (Wo rk) Social History Tobacco Use Types Packs/Day Years Used Date Passive Smoke Exposure - Never Smoker Smokeless Tobacco: Never Used Alcohol Use Standard Drinks/Week Comments No 0 (1 standard drink = 0.6 oz pure alcoho l) Sex Assigned at Date Recorded Female 01/27/2022 12:36 PM CDT documented as of this encounter Miscellaneous Notes Telephone Encounter - Kanika Álvarez RN - 03/02/2019 1:59 PM CDT Routing refill request to provider for review/approval because: Labs not current: Uric acid Kanika Mendez RN Telephone Encounter - Cori Tang - 03/02/2019 9:37 AM CDT Last Written Prescription Date: 02/02/18 Last Fill Quantity: 90 tablet, # refills: 3 Last office visit: 01/30/2019 with prescribing provider: Hyacinth Future Office Visit: Requested Prescriptions Pending Prescriptions Disp Refills ??? allopurinol (ZYLOPRIM) 300 MG tablet [Pharmacy Med Name: ALLOPURINOL 300 MG TABLET] 90 tablet 3 Sig: TAKE 1 TABLET (300 MG) BY MOUTH DAILY ADD DIRECTED TO PREVIOUS SCRIPT Gout Agents Protocol Failed - 03/02/2019 1:50 AM Failed - Has Uric Acid on file in past 12 months and value is less than 6 Recent Labs Lab Test 01/27/18 1035 URIC 7.9* If level is 6mg/dL or greater, ok to refill one time and refer to provider. Passed - CBC on file in past 12 months Recent Labs Lab Test 01/30/19 1024 WBC 6.6 RBC 4.57 HGB 15.0 HCT 44.6 PLT 231 Passed - ALT on file in past 12 months Recent Labs Lab Test 01/30/19 1024 ALT 43 Passed - Recent (12 mo) or future (30 days) visit within the authorizing provider's specialty Patient had office visit in the last 12 months or has a visit in the next 30 days with authorizing provider or within the authorizing provider's specialty. See Patient Info tab in inbasket, or Choose Columns in Meds & Orders section of the refill encounter. Passed - Medication is active on med list Passed - Patient is age 18 or older Passed - No active on record Passed - Normal serum creatinine on file in the past 12 months Recent Labs Lab Test 01/30/19 1024 11/12/17 0903 CR 0.81 < > -- CREAT -- -- 1.0 < > = values in this interval not displayed. 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
--- OUTSIDE RECORDS SUMMARY | 2022-08-20 14:25 | XMS_ITS | Encounter Summary ---
:1945 Author Organization [place] Address [facility] [place] [address] Care Team Providers Name Role Phone Simon Claros MD Primary Care Provider Simon Claros MD Unavailable Encounter Details Date Type Department Care Team Description 08/29/2019 Travel Social History Tobacco Use Types Packs/Day [...] Description 10/26/2022 Lab Oncology Yris Perez MD [address] [place] [address] [phone] (Wo rk) 11/03/2022 Oncology Visit Oncology Yris Perez MD [address] [phone] (Wo rk) documented as of this encounter Visit Diagnoses Not on filedocumented in this encounter Additional Health Concerns Infection Onset Date Last Indicated Resolved Time 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, 01/08/2017 9 06/08/17, 08/26/17 documented as of this encounter Care Teams Warp Placer Relationship Specialty Start Date End Date Simon Claros MD PCP - General Internal Medicine 09/22/12 08/20/21 Simon Claros MD Assigned PCP 06/18/16 03/01/21 [address] [place], [place] [phone] documented as of this encounter
--- OUTSIDE RECORDS SUMMARY | 2022-08-20 14:25 | XMS_ITS | Encounter Summary ---
:1945 Author Organization [place] Address [facility] [place] [address] Care Team Providers Name Role Phone Simon Claros MD Primary Care Provider Simon Claros MD Unavailable Reason for Visit Reason Comments Ingrown Toenail Encounter Details Date Type Department Care Team Description 04/26/2019 Office Visit [facility] Deidra Whitehead, Right f oot pain (Primary Dx); [facility] [place] DPM, Podiatry/Foot Ingrown right [place] [id number] [place] [address] [place] [phone] [facility] [address] [place], [place] [phone] (Wo rk) Social History Tobacco Use Types Packs/Day Years Used Date Passive Smoke Exposure - Never Smoker Smokeless Tobacco: Never Used Tobacco Cessation: Counseling Given: No Alcohol Use Standard Drinks/Week Comments No 0 (1 standard drink = 0.6 oz pure alcoho l) Sex Assigned at Date Recorded Female 01/27/2022 12:36 PM CDT documented as of this encounter Last Filed Vital Signs Vital Sign Reading Time Taken Comments Blood Pressure 126/70 04/26/2019 8:44 AM CDT Pulse - - Temperature - - Respiratory Rate - - Oxygen Saturation - - Inhaled Oxygen Concentration - - Weight 66.7 kg (147 lb) 04/26/2019 8:44 AM CDT Height 167.6 cm (5' 6) 04/26/2019 8:44 AM CDT Body Mass Index 23.73 04/26/2019 8:44 AM CDT documented in this encounter Patient Instructions Patient InstructionsMaurice Matthew - 04/26/2019 8:45 AM CDT Thank you for choosing [facility]! [facility] SCHEDULE WEDNESDAY AM - [place] WEDNESDAY - [place] [address] [address] [place] [address] [place] [address] / FX [phone] / FX [phone] WEDNESDAY - [place] WEDNESDAY AM - [facility] [address] [place] [address] [place] [address] / FX [phone] WEDNESDAY PM - [place] [facility] SCHEDULE SURGERY: [phone] BILLING QUESTIONS: [phone] [place] [address] AFTER HOURS: [phone] / FX [phone] APPOINTMENTS: [phone] [employer] ([facility]) [phone] INGROWN TOENAILS When a toenail is ingrown, it is curved and grows into the skin, usually at the nail borders (the sides of the nail). This ???digging in?? of the nail irritates the skin, often creating pain, redness,swelling, and warmth in the toe. If an ingrown nail causes a break in the skin, bacteria may enter and cause an infection in the area, which is often marked by drainage and a foul odor. However, even if the toe isn???t painful, red, swollen, or warm, a nail that curves downward into the skin can progress to an infection. CAUSES: Heredity: In many people, the tendency for ingrown toenails is inherited. Trauma: Sometimes an ingrown toenail is the result of trauma, such as stubbing your toe, having an object fall on your toe, or engaging in activities that involve repeated pressure on the toes, such askicking or running. Improper Trimming: The most common cause of ingrown toenails is cutting your nails too short. This encourages the skin next to the nail to fold over the nail. Improperly Sized Footwear: Ingrown toenails can result from wearing socks and shoes that are tight or short. Nail Conditions: Ingrown toenails can be caused by nail problems, such as fungal infections or losing a nail due to trauma. TREATMENT: Sometimes initial treatment for ingrown toenails can be safely performed at home. However, home treatment is strongly discouraged if an infection is suspected, or for those who have medical conditions that put feet at high risk, such as diabetes, nerve damage in the foot, or poor circulation. Home care: If you don???t have an infection or any of the above medical conditions, you can soak your foot in room-temperature water (adding Epsom???s salt may be recommended by your doctor), and gently massage the side of the nail fold to help reduce the inflammation. Avoid attempting ???bathroom surgery.?? Repeated cutting of the nail can cause the condition to worsen over time. If your symptoms fail to improve, it???s time to see a foot and ankle surgeon. Physician care: After examining the toe, the foot and ankle surgeon will select the treatment best suited for you. If an infection is present, an oral antibiotic may be prescribed. Sometimes a minor surgical procedure, often performed in the office, will ease the pain and remove the offending nail. After applying a local anesthetic, the doctor removes part of the nail???s side border. Some nails may become ingrown again, requiring removal of the nail root. Following the nail procedure, a light bandage will be applied. Most people experience very little pain after surgery and may resume normal activity the next day. If your surgeon has prescribed an oral antibiotic, be sure to take all the medication, even if your symptoms have improved. PREVENTION: Proper Trimming: Cut toenails in a fairly straight line, and don???t cut them too short. You should be able to get your fingernail under the sides and end of the nail. Well-fitting Footwear: Don???t wear shoes that are short or tight in the toe area. Avoid shoes that are loose, because they too cause pressure on the toes, especially when running or walking briskly. INGROWN TOENAIL REMOVAL AFTERCARE ?? Go directly home and elevate the affected foot on one or two pillows for the remainder of the day/evening if possible. Your toe may stay numb anywhere from 2-8 hours. ?? Take Tylenol, ibuprofen or another anti-inflammatory as needed for pain. ?? Take antibiotic if that has been prescribed. Finish the entire prescribed antibiotic even if yoursymptoms have improved. ?? The evening of the procedure, soak/wash the affected area in warm water (you may add Epsom salt) for 5 to 10 minutes. Do this twice a day for 2-4 weeks (6-8 weeks if you had phenol) (you may count showering/bathing as one soak). After soaks, pat the area dry and then allow to airdry for a few minutes. Apply antibiotic ointment to the area and cover with 2 X 2 gauze and paper tape or band-aid. ?? You may pursue everyday activities as tolerated with either an open toe shoe or cut-out shoe as needed or you may wear regular shoes if no pain is noted. ?? Watch for any signs and symptoms of infection such as: redness, red streaks going up the foot/leg, swelling, pus or foul odor. Those that have had the phenol procedure, the toe will drain longer andwill look like it is infected because it is a chemical burn. ?? Please call with questions. BODY WEIGHT AND YOUR FEET The following information is included in the after visit summary for all patients. Body weight can be a sensitive issue to discuss in clinic, but we think the following information is very important. Although we focus on the feet and ankles, we do support the overall health of our patients. Many things can cause foot and ankle problems. Foot structure, activity level, foot mechanics and injuries are common causes of pain. One very important issue that often goes unmentioned, is body weight. Extra weight can cause increased stress on muscles, ligaments, bones and tendons. Sometimes just afew extra pounds is all it takes to put one over her/his threshold. Without reducing that stress, itcan be difficult to alleviate pain. As Foot & Ankle specialists, our job is addressing the lowerextremity problem and possible causes. Regarding extra body weight, we encourage patients to discussdiet and weight management plans with their primary care doctors. It is this team approach that gives you the best opportunity for pain relief and getting you back on your feet. [facility] has a Comprehensive Weight Management Program. This program includes counseling, education,non-surgical and surgical approaches to weight loss. If you are interested in learning more either talk to you primary care provider or call [phone]. documented in this encounter Progress Notes Deidra Whitehead, JULIAN, Podiatry/Foot and Ankle Surgery - 04/26/2019 8:45 AM CDT Podiatry / Foot and Ankle Surgery Progress Note April 26, 2019 Subject: Patient was seen for follow up on painful ingrown nail right great toe. Notes that it has been that way for last 2 months. maninder nsi 04/24. Wondering about removal. Objective: Vitals: BP 126/70 Ht 1.676 m (5' 6) Wt 66.7 kg (147 lb) BMI 23.73 kg/m?? BMI= Body mass index is 23.73 kg/m??. General: Patient is alert and orientated. NAD Vascular: DP and PT pulses are palpable. No varicosities noted CFT's < 3secs. Skin temp is normal Neuro: Light and gross touch sensation intact to digits, dorsum, and plantar aspects of the feet. Derm: Medial border of right great toenail is incurvated. Localized redness and pain on palpation. Musculoskeletal: No foot deformity noted. Assessment: Right foot pain Ingrown right greater toenail Plan: The potential causes and nature of an ingrown toenail were discussed with the patient. We reviewed the natural history/prognosis of the condition and potential risks if no treatment is provided. Treatment options discussed included conservative management (oral antibiotics, soaking of foot, adequate width shoes) as well as surgical management (partial or total nail removal). The pros and cons of both forms of treatment were reviewed. After thorough discussion and answering all questions, the patient elected to have border removed. Will soak the foot 2x a day for 2 weeks and apply antibiotic ointmentand bandage.. After verbal consent, the right big toe was anesthetized with 5cc's of 1% lidocaine plain. A tourniquet was applied to the toe. The medial border was then raised from the nail bed and then cut the length of the nail. The offending nail border was then removed. Bacitracin was applied to the nail bed. The tourniquet was removed. Bandage was applied to the toe. The patient tolerated the procedure and anesthesia well. Deidra Whitehead DPM, Podiatry/Foot and Ankle Surgery CDT documented in this encounter Plan of Treatment Upcoming Encounters Date Type Specialty Care Team Description 10/26/2022 Lab Oncology Yris Perez MD [address] [place] [phone] (Wo rk) 11/03/2022 Oncology Visit Oncology Yris Perez MD [address] [phone] (Wo rk) documented as of this encounter Procedures Procedure Name Priority Date/Time Associated Diagnosis Comme nts HC REMOVAL OF NAIL Routine 04/26/2019 9:05 AM CDT Right foot pain PLATE SIMPLE SINGLE Ingrown right greater toenail documented in this encounter Visit Diagnoses Diagnosis Right foot pain - Primary Pain in limb Ingrown right greater toenail Ingrowing nail documented in this encounter Additional Health Concerns Infection Onset Date Last Indicated Resolved Time 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, 01/08/2017 9 06/08/17, 08/26/17 documented as of this encounter Care Teams Crewman Main Battle Tank Relationship Specialty Start Date End Date Simon Claros MD PCP - General Internal Medicine 09/22/12 08/20/21 Simon Claros MD Assigned PCP 06/18/16 03/01/21 [address] [facility] [address] [place] [phone] documented as of this encounter
--- OUTSIDE RECORDS SUMMARY | 2022-08-20 14:25 | XMS_ITS | Encounter Summary ---
:1945 Author Organization [place] Address [facility] [place] [address] Care Team Providers Name Role Phone Simon Claros MD Primary Care Provider Simon Claros MD Unavailable Encounter Details Date Type Department Care Team Description 04/25/2019 Travel Social History Tobacco Use Types Packs/Day [...] 10/26/2022 Lab Oncology Yris Perez MD [address] [place] [phone] (Wo rk) 11/03/2022 Oncology Visit Oncology Yris Perez MD [address] [phone] (Wo rk) documented as of this encounter Visit Diagnoses Not on filedocumented in this encounter Additional Health Concerns Infection Onset Date Last Indicated Resolved Time 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, 01/08/2017 9 06/08/17, 08/26/17 documented as of this encounter Care Teams Top Inventory Control Executive Relationship Specialty Start Date End Date Simon Claros MD PCP - General Internal Medicine 09/22/12 08/20/21 Simon Claros MD Assigned PCP 06/18/16 03/01/21 [address] [place], [place] [phone] documented as of this encounter
--- OUTSIDE RECORDS SUMMARY | 2022-08-20 14:25 | XMS_ITS | Encounter Summary ---
:1945 Author Organization [place] Address [address] [place] [address] Care Team Providers Name Role Phone Simon Claros MD Primary Care Provider Simon Claros MD Unavailable Reason for Visit Reason Comments RECHECK Encounter Details Date Type Department Care Team Description 04/25/2019 Office Visit [facility] Simon Claros, Chroni c obstructive pulmonary disease, unspecified COPD type (H) (Primary Dx); [facility] [place] Benign essential hypertension; [address] Malignant neoplasm of female breast, unspecified estrogen receptor status, unspecified laterality, unspecified site of breast (H); [facility], [address] [place] Acute idiopathic gout of left foot; [place] [address] [place], [place] Hyperlipidemia LDL goal <130 ; [phone] [id number] Atrophic vaginitis; [phone] Inflamed seborr heic keratosis; (Work) Skin tag Social History Tobacco Use Types Packs/Day Years Used Date Passive Smoke Exposure - Never Smoker Smokeless Tobacco: Never Used Alcohol Use Standard Drinks/Week Comments No 0 (1 standard drink = 0.6 oz pure alcoho l) Sex Assigned at Date Recorded Female 01/27/2022 12:36 PM CDT documented as of this encounter Last Filed Vital Signs Vital Sign Reading Time Taken Comments Blood Pressure 116/72 04/25/2019 3:18 PM CDT Pulse 81 04/25/2019 3:18 PM CDT Temperature 36.7 ??C (98 ??F) 04/25/2019 3:18 PM CDT Respiratory Rate - - Oxygen Saturation 97% 04/25/2019 3:18 PM CDT Inhaled Oxygen Concentration - - Weight 66.7 kg (147 lb) 04/25/2019 3:18 PM CDT Height 167.6 cm (5' 6) 04/25/2019 3:18 PM CDT Body Mass Index 23.73 04/25/2019 3:18 PM CDT documented in this encounter Progress Notes Simon Claros MD - 04/25/2019 3:30 PM CDT Subjective Darshana Brooks is a 73 year old female who presents to clinic today for the following health issues: HPI Derm issue Patient has a few skin tags and moles that she would like removed and would like to review labs. Vaginal She has been using estradiol and wonders if she should be using more after discussing about her labs. Patient Active Problem List Diagnosis ??? Right hip pain ??? ACP (advance care planning) ??? Benign essential hypertension ??? Chronic obstructive pulmonary disease, unspecified COPD type (H) ??? Strain of neck muscle, initial encounter ??? Malignant neoplasm of female breast, unspecified estrogen receptor status, unspecified laterality, unspecified site of breast (H) ??? History of frequent urinary tract infections ??? Atrophic vaginitis ? ? Hyperlipidemia LDL goal <130 ??? Fatigue, unspecified type ??? Acute idiopathic gout of left foot ??? Vitamin D deficiency ??? Trigger finger, acquired ??? ERRONEOUS ENCOUNTER--DISREGARD Past Surgical History: Procedure Laterality Date ??? [...] Iggy Dodd MD; Location: [facility] OR ??? DRAWBRIDGE TENDER SURGERY hysterectomy ??? LUMPECTOMY BREAST WITH SEED LOCALIZATION Right 02/08/2017 Procedure: LUMPECTOMY BREAST WITH SEED LOCALIZATION; Surgeon: Jordin Atkins MD; Location: [facility] ??? ORTHOPEDIC SURGERY hip replacement Social History Tobacco Use ??? Smoking status: Passive Smoke Exposure - Never Smoker ??? Smokeless tobacco: Never Used Substance Use Topics ??? Alcohol use: No Alcohol/week: 0.0 oz Family History Problem Relation Age of Onset ??? Diabetes Mother ??? Hypertension Mother ??? Diabetes Father ??? Asthma Father ??? Breast Cancer Sister ??? Other Cancer Brother Current Outpatient Medications Medication Sig Dispense Refill ??? allopurinol (ZYLOPRIM) 300 MG tablet TAKE 1 TABLET (300 MG) BY MOUTH DAILY ADD DIRECTED TO PREVIOUS SCRIPT 90 tablet 3 ??? ANASTROZOLE PO Take 1 mg by mouth daily ??? Cholecalciferol (VITAMIN D3 PO) Take 2,000 Units by mouth daily ??? ESTRADIOL PO ??? loratadine (CLARITIN) 10 MG tablet Take 10 mg by mouth ??? PROAIR HFA 108 (90 Base) MCG/ACT inhaler INHALE 2 PUFFS 4 TIMES A DAY NEEDED 8.5 Inhaler 5 Allergies Allergen Reactions ??? Other [No Clinical Screening - See Comments] PN: LW Other1: -latex:nasal congestion, eyes watering. LW Other2: -canteloupe, horses, cats, dust, molds, trees ??? Sulfamethoxazole Heartburn ??? Chlorhexidine Gluconate [Chlorhexidine] Rash ??? Latex Rash Other reaction(s): Other, see comments PN: sneezing, runny nose, BP Readings from Last 3 Encounters: 04/25/19 116/72 03/02/19 116/65 01/30/19 130/74 Wt Readings from Last 3 Encounters: 04/25/19 66.7 kg (147 lb) 03/02/19 64.9 kg (143 lb) 01/30/19 66.7 kg (147 lb) Reviewed and updated as needed this visit by Provider Review of Systems ROS COMP: Constitutional, HEENT, cardiovascular, pulmonary, gi and gu systems are negative, except as otherwise noted. This document serves as a record of the services and decisions personally performed and made by MD Taryn. It was created on his behalf by Traci Chavez, a trained medical record clerk. The creation of this document is based on the provider's statements to the medical record clerk. Traci Chavez April 25, 2019 3:52 PM Objective BP 116/72 (BP Location: Left arm, Patient Position: Sitting, Cuff Size: Adult Regular) Pulse 81 Temp 98 ??F (36.7 ??C) (Oral) Ht 1.676 m (5' 6) Wt 66.7 kg (147 lb) SpO2 97% ? No BMI 23.73 kg/m?? Body mass index is 23.73 kg/m??. Physical Exam Neck was supple without adenopathy or thyromegaly her carotids were normal without bruits Chest clear to auscultation and percussion Cardiovascular S1 and S2 are physiologic without murmurs or gallops Abdomen bowel sounds were normal. There is no palpable mass or organomegaly Extremities nontender without any edema Pulses pedal pulses are as described otherwise his pulses are bilaterally symmetrical throughout without bruits Skin without significant abnormality She had multiple inflamed seborrheic keratosis that were being aggravated by her clothing and a few skin tags. Procedure: On her left neck we removed a skin tag, 2 seborrheic keratosis on the right trapezius area that we treated with liquid nitrogen times 3 and her anterior neck she had 2 seborrheic keratosis that we treated With liquid nitrogen. On her left lateral breast she had an inflamammed seborrheic keratosis thatwas also treated with liquid nitrogen x3 Diagnostic Test Results: Labs reviewed in [facility] along with discussion Assessment & Plan Darshana was seen today for recheck. Diagnoses and all orders for this visit: Chronic obstructive pulmonary disease, unspecified COPD type (H) Benign essential hypertension Malignant neoplasm of female breast, unspecified estrogen receptor status, unspecified laterality, unspecified site of breast (H) Acute idiopathic gout of left foot Hyperlipidemia LDL goal <130 Atrophic vaginitis The information in this document, created by the medical record clerk for me, accurately reflects the services I personally performed and the decisions made by me. I have reviewed and approved this document for accuracy prior to leaving the patient care area. April 25, 2019 3:53 PM Smion Claros MD [facility] documented in this encounter Plan of Treatment Upcoming Encounters Date Type Specialty Care Team Description 10/26/2022 Lab Oncology Yris Perez MD [address] [facility] [address] [place], [place] [id number] (Wo rk) 11/03/2022 Oncology Visit Oncology Yris Perez MD [address] [facility] [address] [place], [place] [address] (Wo rk) documented as of this encounter Procedures Procedure Name Priority Date/Time Associated Diagnosis Comme nts HC REMOVAL OF SKIN Routine 04/27/2019 6:01 AM CDT Skin tag TAGS, FIRST 15 HC DESTRUCT BENIGN Routine 04/27/2019 6:01 AM CDT Inflamed wood orrheic LESION, UP TO 14 keratosis documented in this encounter Visit Diagnoses Diagnosis Chronic obstructive pulmonary disease, u nspecified COPD type (H) - Primary Benign essential hypertension Essential hypertension, benign Malignant neoplasm of female breast, uns pecified estrogen receptor status, unspecified laterality, unspecified site of breast (H) Acute idiopathic gout of left foot Hyperlipidemia LDL goal <130 Other and unspecified hyperlipidemia Atrophic vaginitis Postmenopausal atrophic vaginitis Inflamed seborrheic keratosis Skin tag Unspecified hypertrophic and atrophic co ndition of skin documented in this encounter Additional Health Concerns Infection Onset Date Last Indicated Resolved Time 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, 01/08/2017 9 06/08/17, 08/26/17 documented as of this encounter Care Teams Marketing Communications Manager Relationship Specialty Start Date End Date Simon Claros MD PCP - General Internal Medicine 09/22/12 08/20/21 Simon Claros MD Assigned PCP 06/18/16 03/01/21 [address] [place] [address] [place] [id number] documented as of this encounter
--- OUTSIDE RECORDS SUMMARY | 2022-08-20 14:25 | XMS_ITS | Encounter Summary ---
:1945 Author Organization [place] Address [address] [address] Care Team Providers Name Role Phone Simon Claros MD Primary Care Provider Simon Claros MD Unavailable Reason for Visit Reason Comments Dysuria x 5 days Encounter Details Date Type Department Care Team Description 08/29/2019 Office Visit [facility] Praveen Dee c ystitis without hematuria (Primary Dx); Clinic [place] [facility] [place] Candidal vulvovaginitis; [address] [address] [address] Nonspecific finding on exami nation of urine [place], [place] [address] [address] [place], [place] [phone] [id number] Social History Tobacco Use Types Packs/Day Years Used Date Passive Smoke Exposure - Never Smoker Smokeless Tobacco: Never Used Alcohol Use Standard Drinks/Week Comments No 0 (1 standard drink = 0.6 oz pure alcoho l) Sex Assigned at Date Recorded Female 01/27/2022 12:36 PM CDT documented as of this encounter Last Filed Vital Signs Vital Sign Reading Time Taken Comments Blood Pressure 121/59 08/29/2019 2:03 PM CDT Pulse 84 08/29/2019 2:03 PM CDT Temperature 36.8 ??C (98.2 ??F) 08/29/2019 2:03 PM CDT Respiratory Rate 14 08/29/2019 2:03 PM CDT Oxygen Saturation 97% 08/29/2019 2:03 PM CDT Inhaled Oxygen Concentration - - Weight 66.7 kg (147 lb) 08/29/2019 2:03 PM CDT Height - - Body Mass Index 23.73 04/26/2019 8:44 AM CDT documented in this encounter Progress Notes Praveen Dee PA-C - 08/29/2019 2:05 PM CDT Subjective Darshana Brooks is a 74 year old female who presents to clinic today for the following health issues: HPI URINARY TRACT SYMPTOMS Onset: 5 days ago ?? Description: Painful urination (Dysuria): YES Frequency: YES Blood in urine (Hematuria): no Delay in urine (Hesitency): YES ?? Intensity: mild, moderate ?? Progression of Symptoms: worsening ?? Accompanying Signs & Symptoms: Fever/chills: YES Flank pain no Nausea and vomiting: no Any vaginal symptoms: none and vaginal itching, some vaginal discharge last week Abdominal/Pelvic Pain: YES- front lower left ?? History: History of frequent UTI's: YES History of kidney stones: no Sexually Active: no Possibility of : No ?? Precipitating factors: no Therapies Tried and outcome: Increase fluid intake Patient Active Problem List Diagnosis ??? Right [...] ??? Trigger finger, acquired ??? ERRONEOUS ENCOUNTER--DISREGARD Current Outpatient Medications Medication ??? allopurinol (ZYLOPRIM) 300 MG tablet ??? ANASTROZOLE PO ??? Cholecalciferol (VITAMIN D3 PO) ??? ESTRADIOL PO ??? loratadine (CLARITIN) 10 MG tablet ??? PROAIR HFA 108 (90 Base) MCG/ACT inhaler No current facility-administered medications for this visit. Allergies Allergen Reactions ??? Other [No Clinical Screening - See Comments] PN: LW Other1: -latex:nasal congestion, eyes watering. LW Other2: -canteloupe, horses, cats, dust, molds, trees ??? Sulfamethoxazole Heartburn ??? Chlorhexidine Gluconate [Chlorhexidine] Rash ??? Latex Rash Other reaction(s): Other, see comments PN: sneezing, runny nose, Reviewed and updated as needed this visit by Provider Tobacco Allergies Meds Problems Review of Systems GENERAL: No fevers : As noted in HPI Objective BP 121/59 (BP Location: Right arm, Patient Position: Chair, Cuff Size: Adult Regular) Pulse 84 Temp 98.2 ??F (36.8 ??C) (Oral) Resp 14 Wt 66.7 kg (147 lb) SpO2 97% ? No BMI 23.73 kg/m?? Body mass index is 23.73 kg/m??. Physical Exam GENERAL: No acute distress HEENT: Normocephalic CARDIAC: Regular rate and rhythm. No murmurs. PULMONARY: Lungs are clear to auscultation bilaterally. No wheezes, rhonchi or crackles. GI: Active bowel sounds, abdomen is soft. Tenderness in the left lower quadrant. : No CVA tenderness bilaterally. White vaginal discharge noted, vaginal mucosa otherwise nonerythematous. NEURO: Alert and non-focal Diagnostic Test Results: Results for orders placed or performed in visit on 08/29/19 (from the past 24 hour(s)) UA reflex to Microscopic and Culture Result Value Ref Range Color Urine Yellow Appearance Urine Clear Glucose Urine Negative NEG^Negative mg/dL Bilirubin Urine Negative NEG^Negative Ketones Urine Negative NEG^Negative mg/dL Specific [place] Urine 1.010 1.003 - 1.035 Blood Urine Small (A) NEG^Negative pH Urine 7.0 5.0 - 7.0 pH Protein Albumin Urine Negative NEG^Negative mg/dL Urobilinogen Urine 0.2 0.2 - 1.0 EU/dL Nitrite Urine Negative NEG^Negative Leukocyte Esterase Urine Small (A) NEG^Negative Source Midstream Urine Urine Microscopic Result Value Ref Range WBC Urine 10-25 (A) OTO5^0 - 5 /HPF RBC Urine O - 2 OTO2^O - 2 /HPF Squamous Epithelial /LPF Urine Few FEW^Few /LPF Bacteria Urine Many (A) NEG^Negative /HPF Wet prep Result Value Ref Range Specimen Description Vagina Wet Prep No Trichomonas seen Wet Prep No clue cells seen Wet Prep Yeast seen Few (A) Wet Prep WBC'S seen Few Assessment & Plan 1. Acute cystitis without hematuria Patient's urinalysis is consistent with a bladder infection. She was treated with Keflex as noted below. We will notify her if the urine culture shows resistance to the Keflex. In regards to patient's abdominal discomfort it is a mild and without other associated symptoms. I recommended she continue to monitor and return if symptoms are worsening or she has new symptoms such as blood in the stool or diarrhea. - UA reflex to Microscopic and Culture - Urine Microscopic - Urine Culture Aerobic Bacterial - Wet prep - cephALEXin (KEFLEX) 500 MG capsule; Take 1 capsule (500 mg) by mouth 3 times daily for 7 days Dispense: 21 capsule; Refill: 0 2. Candidal vulvovaginitis Patient also was found to have yeast on wet prep. She was treated with Diflucan as noted below. - fluconazole (DIFLUCAN) 150 MG tablet; Take 1 tablet (150 mg) by mouth once for 1 dose Dispense: 1 tablet; Refill: 0 3. Nonspecific finding on examination of urine As noted above. - Urine Culture Aerobic Bacterial Praveen Dee PA-C [facility] documented in this encounter Miscellaneous Notes Addendum Note - Praveen Dee PA-C - 08/29/2019 2:05 PM CDT Addended by: PRAVEEN DEE on: 09/01/2019 08:10 AM Modules accepted: Orders documented in this encounter Plan of Treatment Upcoming Encounters Date Type Specialty Care Team Description 10/26/2022 Lab Oncology Yris Perez MD [address] [address] (Madeleine proctor) 11/03/2022 Oncology Visit Oncology Yris Perez MD [address] [id number] (Madeleine proctor) documented as of this encounter Procedures Procedure Name Priority Date/Time Associated Diagnosis Comme nts WET PREPARATION Routine 08/29/2019 2:34 PM Acute cystitis Resu lts for this CDT without hematuria procedure are in the results section. URINE MICROSCOPIC Routine 08/29/2019 1:49 PM Acute cystitis Re sults for this CDT without hematuria procedure are in the results section. UA MACROSCOPIC WITH Routine 08/29/2019 1:49 PM Acute cystitis Results for this REFLEX TO CDT without hematuria procedure are in MICROSCOPIC AND the results CULTURE section. URINE CULTURE Routine 08/29/2019 1:49 PM Acute cystitis Result s for this CDT without hematuri a procedure are in Nonspecific finding the resu lts on examination of section. urine documented in this encounter Results (ABNORMAL) Wet prep (08/29/2019 2:34 PM CDT) [facility] Method Time Signature Specimen Vagina [place] Description [facility] Wet Prep No Trichomonas 08/29/2019 [place] seen 2:43 PM CDT [facility] Wet Prep No clue cells 08/29/2019 [place] seen 2:43 PM CDT [facility] Wet Prep Yeast seen 08/29/2019 [place] Few 2:43 PM CDT [facility] Wet Prep WBC'S seen 08/29/2019 [place] Few 2:43 PM CDT [facility] Specimen Anatomical Collection Method Collection Time Receive d Time (Source) Location / / Volume Laterality Specimen from 08/29/2019 2:34 PM 08/29/20 19 2:35 vagina CDT PM CDT (specimen) Praveen Dee PA-C LAB - MICRO GENERAL ORDERABL ES Performing Organization Address City/State/ZIP Code Phon e Number [facility] [address] [place] [address] (ABNORMAL) Urine Culture Aerobic Bacterial (08/29/2019 1:49 PM CDT) Component Value Ref Test Analysis Performed At [facility] Range Method Time Signature Specimen Midstream Urine INFECTIOUS Description [facility] Culture Micro >100,000 colonies/mL 09/01/2019 [facility] Escherichia coli ESBL 8:03 AM CDT DISE[facility] ES (A) DIAGNOSTIC LABORATORY Culture Micro >100,000 colonies/mL 09/01/2019 [facility] Strain 2 8:03 AM CDT DISEASES Escherichia coli ESBL DIAGNOST IC (A) LABORATORY Culture Micro ESBL (extended 09/01/2019 INFECTIOUS beta lactamase) 8:03 AM CDT DISEASES producing DIAGNOSTIC organisms LABORATORY require contact precautions. Specimen (Source) Anatomical Collection Method Collection Time Re ceived Time Location / / Volume Laterality Examination of 08/29/2019 1:49 08/29/2019 2:02 midstream urine PM CDT PM CDT specimen (procedure) Organism Antibiotic Method Susceptibility Escherichia coli ESBL Ampicillin VERONIKA >=32 ug/mL : Resistant Escherichia coli ESBL Cefazolin VERONIKA >=64 ug/mL : Resistant Comment: Cefazolin VERONIKA breakpoints ar e for the treatment of uncomplicated urinary tract infections. ??For the treat ment of systemic infections, please contact the laboratory for additional te sting. Escherichia coli ESBL Cefoxitin VERONIKA 8 ug/mL: S usceptible Escherichia coli ESBL Ceftazidime VERONIKA 16 ug/mL: Resistant Escherichia coli ESBL Ceftriaxone VERONIKA >=64 ug/mL : Resistant Escherichia coli ESBL Ciprofloxacin VERONIKA >=4 ug/mL: Resistant Escherichia coli ESBL Gentamicin VERONIKA <=1 ug/mL: Susceptible Escherichia coli ESBL Levofloxacin VERONIKA >=8 ug/mL: Resistant Escherichia coli ESBL Nitrofurantoin VERONIKA <=16 ug/mL : Susceptible Escherichia coli ESBL Tobramycin VERONIKA <=1 ug/mL: Susceptible Escherichia coli ESBL Trimethoprim/Sulfamethoxazole VERONIKA <=1/19 ug/mL: Susceptible Escherichia coli ESBL Ampicillin/Sulbactam VERONIKA 4 ug/ mL: Susceptible Escherichia coli ESBL Piperacillin/Tazo VERONIKA <=4 ug/m L: Susceptible Escherichia coli ESBL Amikacin VERONIKA <=2 ug/mL: Susceptible Escherichia coli ESBL Cefepime VERONIKA ug/mL: Re sistant Escherichia coli ESBL Meropenem VERONIKA <=0.25 ug/ mL: Susceptible Comment: Enterobacteriaceae that are susceptible to meropenem are usually susceptible to ertapenem. Escherichia coli ESBL Ampicillin VERONIKA >=32 ug/mL : Resistant Escherichia coli ESBL Cefazolin VERONIKA >=64 ug/mL : Resistant Comment: Cefazolin VERONIKA breakpoints ar e for the treatment of uncomplicated urinary tract infections. ??For the treat ment of systemic infections, please contact the laboratory for additional te sting. Escherichia coli ESBL Cefoxitin VERONIKA 8 ug/mL: S usceptible Escherichia coli ESBL Ceftazidime VERONIKA 16 ug/mL: Resistant Escherichia coli ESBL Ceftriaxone VERONIKA >=64 ug/mL : Resistant Escherichia coli ESBL Ciprofloxacin VERONIKA >=4 ug/mL: Resistant Escherichia coli ESBL Gentamicin VERONIKA <=1 ug/mL: Susceptible Escherichia coli ESBL Levofloxacin VERONIKA >=8 ug/mL: Resistant Escherichia coli ESBL Nitrofurantoin VERONIKA <=16 ug/mL : Susceptible Escherichia coli ESBL Tobramycin VERONIKA <=1 ug/mL: Susceptible Escherichia coli ESBL Trimethoprim/Sulfamethoxazole VERONIKA <=1/19 ug/mL: Susceptible Escherichia coli ESBL Ampicillin/Sulbactam VERONIKA 4 ug/ mL: Susceptible Escherichia coli ESBL Piperacillin/Tazo VERONIKA 8 ug/mL: Susceptible Escherichia coli ESBL Amikacin VERONIKA <=2 ug/mL: Susceptible Escherichia coli ESBL Cefepime VERONIKA ug/mL: Re sistant Escherichia coli ESBL Meropenem VERONIKA <=0.25 ug/ mL: Susceptible Praveen Dee PA-C LAB - MICRO GENERAL ORDERABL ES Performing Organization Address City/[facility] Phon e Number INFECTIOUS DISEASES [address] [place] [address] DIAGNOSTIC LABORATORY, [facility] INFECTIOUS DISEASES [address] [place] [address], A DIAGNOSTIC LABORATORY (ABNORMAL) Urine Microscopic (08/29/2019 1:49 PM CDT) [facility] gist Method Time Signature WBC Urine 10-25 (A) OTO5^0 - 5 08/29/2019 [facility] /HPF 2:01 PM CDT [facility] RBC Urine O - 2 OTO2^O - 2 08/29/2019 [facility] /HPF 2:01 PM CDT [facility] Squamous Few FEW^Few 08/29/2019 [place] Epithelial /LPF /LPF 2:01 PM CDT [facility] Urine [place] Bacteria Urine Many (A) NEG^Negati 08/29/2019 [place] ve /HPF 2:01 PM CDT [facility] Specimen Anatomical Collection Method Collection Time Receive d Time (Source) Location / / Volume Laterality 08/29/2019 1:49 PM 9 1:50 CDT PM CDT Praveen Dee PA-C LAB - URINE ORDERABLES Performing Organization Address [facility]/ZIP [facility] Phon e Number [facility] [address] [place] [address] (ABNORMAL) UA reflex to Microscopic and Culture (08/29/2019 1:49 PM CDT) [facility] Method Time Signature Color Urine Yellow 08/29/2019 [place] 2:01 PM CDT [facility] Appearance Urine Clear 08/29/2019 [place] 2:01 PM CDT [facility] Glucose Urine Negative NEG^Negat 08/29/2019 [place] dee mg/dL 2:01 PM CDT [facility] Bilirubin Urine Negative NEG^Negat 08/29/2019 [place] dee 2:01 PM CDT [facility] Ketones Urine Negative NEG^Negat 08/29/2019 [place] dee mg/dL 2:01 PM CDT [facility] Specific [place] 1.010 1.003 - 08/29/2019 [place] Urine 1.035 2:01 PM CDT [facility] Blood Urine Small (A) NEG^Negat 08/29/2019 [place] dee 2:01 PM CDT [facility] pH Urine 7.0 5.0 - 7.0 08/29/2019 [place] pH 2:01 PM CDT [facility] Protein Albumin Negative NEG^Negat 08/29/2019 [place] Urine dee mg/dL 2:01 PM CDT [facility] Urobilinogen 0.2 0.2 - 1.0 08/29/2019 [place] Urine EU/dL 2:01 PM CDT [facility] Nitrite Urine Negative NEG^Negat 08/29/2019 [place] dee 2:01 PM CDT [facility] Leukocyte Small (A) NEG^Negat 08/29/2019 [place] Esterase Urine dee 2:01 PM CDT [facility] Source Midstream 08/29/2019 [place] Urine 1:50 PM CDT [facility] Specimen (Source) Anatomical Collection Method Collection Time Re ceived Time Location / / Volume Laterality Examination of 08/29/2019 1:49 08/29/2019 1:50 midstream urine PM CDT PM CDT specimen (procedure) Praveen Dee PA-C LAB - URINE ORDERABLES Performing Organization Address City/State/ZIP Code Phon e Number [facility] [address] [place], [place] [id number] documented in this encounter Visit Diagnoses Diagnosis Acute cystitis without hematuria - Prima ry Acute cystitis Candidal vulvovaginitis Candidiasis of vulva and vagina Nonspecific finding on examination of ur ine Other nonspecific finding on examination of urine documented in this encounter Additional Health Concerns Infection Onset Date Last Indicated Resolved Time 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, 01/08/2017 9 06/08/17, 08/26/17 documented as of this encounter Care Teams Diving Judge Relationship Specialty Start Date End Date Simon Claros MD PCP - General Internal Medicine 09/22/12 08/20/21 Simon Claros MD Assigned PCP 06/18/16 03/01/21 [address] [place] [address] [facility] [place] [phone] documented as of this encounter
--- OUTSIDE RECORDS SUMMARY | 2022-08-20 14:25 | XMS_ITS | Encounter Summary ---
:1945 Author Organization [place] Address [address] [facility] [place] [address] Care Team Providers Name Role Phone Simon Claros MD Primary Care Provider Simon Claros MD Unavailable Reason for Visit Reason Onset Date Comments Telephone 02/23/2019 Encounter Details Date Type Department Care Team Description 02/23/2019 Virtual Visit [facility] Simon Claros, [facility] ic obstructive Clinic Whitley HINES pulmonary disease, [address] unspeci fied COPD type [facility], [address] (H) (Primary Dx) [place] [address] [place] [phone] Social History Tobacco Use Types Packs/Day Years Used Date Passive Smoke Exposure - Never Smoker Smokeless Tobacco: Never Used Alcohol Use Standard Drinks/Week Comments No 0 (1 standard drink = 0.6 oz pure alcoho l) Sex Assigned at Date Recorded Female 01/27/2022 12:36 PM CDT documented as of this encounter Progress Notes Simon Claros MD - 02/23/2019 1:00 PM CDT Darshana Brooks is a 73 year old female who is being evaluated via a telephone visit. The patient has been notified of following (by Pearl Jansen CMA on 02/23/2019 at 11:33 AM We have found that certain health care [...] the test done at a later time. This telephone visit will be conducted via 3 way call with the you (the patient) , the physician/provider, and a me all on the line at the same time. This allows your physician/provider to have the phone conversation with you while I will be taking notes for your medical record. We will have full access to your [place] medical record during this entire phone call. Since this is like an office visit, will bill your insurance company for this service. Please check with your medical insurance if this type of telephone/virtual is covered . You may be responsible forthe cost of this service if insurance coverage is denied. The typical cost is $30 (10min), $59(11-20min) and $85 (21-30min) If during the course of the call the physician/provider feels a telephone visit is not appropriate, you will not be charged for this service Consent has been obtained for this service by care steam pressure chamber operator: yes. See the scanned image in the medical record. S: The history as provided by the patient to the provider during this 3 way call include Patient reports that since her last office visit she has been having excessive coughing and dyspnea which is improved with using her rescue inhaler 4 times daily and more as needed. The coughing is exacerbated when she is in areas that may have mold. Her nasal discharge is clear and is somewhat controlled by taking Claritin daily. Her cough is dry hacking with occasional production of clear slimy phlegm. She denies any fevers chills or sweats. Meds reviewed Virtual exam patient reports postnasal drip without a sore throat no sensitivity of her neck she does not note any significant wheezing, no chest pain and no history of nausea vomiting or water brash. Assessment of COPD with possible aggravation from environmental allergens or related to seasonal exacerbation. Plan the patient was recommended to begin taking a Medrol Dosepak and return to clinic in 6-7 days to reevaluate and probably add a long-acting combination inhaler to her rescue inhaler. Pertinent parts of the the patient's medical history reviewed and confirmed by the provider included: Total time of call between patient and provider was 10 minutes gb (MD signature) I have reviewed the note as documented above. This accurately captures the substance of my conversation with the patient, Additional provider notes: Assessment/Plan: No diagnosis found. documented in this encounter Plan of Treatment Upcoming Encounters Date Type Specialty Care Team Description 10/26/2022 Lab Oncology Yris Perez MD [address] [place] [id number] (Wo rk) 11/03/2022 Oncology Visit Oncology Yris Perez MD [address] [phone] (Wo rk) documented as of this encounter Visit Diagnoses Diagnosis Chronic obstructive pulmonary disease, u nspecified COPD type (H) - Primary documented in this encounter Additional Health Concerns Infection Onset Date Last Indicated Resolved Time 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, 01/08/2017 9 06/08/17, 08/26/17 documented as of this encounter Care Teams Tilt Wall Supervisor Relationship Specialty Start Date End Date Simon Claros MD PCP - General Internal Medicine 09/22/12 08/20/21 Simon Claros MD Assigned PCP 06/18/16 03/01/21 [address] [place] [phone] documented as of this encounter
--- OUTSIDE RECORDS SUMMARY | 2022-08-20 14:25 | XMS_ITS | Encounter Summary ---
:1945 Author Organization [place] Address [facility] [place] [address] Care Team Providers Name Role Phone Simon Claros MD Primary Care Provider Simon Claros MD Unavailable Encounter Details Date Type Department Care Team Description 04/26/2019 Travel Social History Tobacco Use Types Packs/Day [...] Description 10/26/2022 Lab Oncology Yris Perez MD [address] [place] [phone] (Wo rk) 11/03/2022 Oncology Visit Oncology Yris Perez MD [address] [phone] (Wo rk) documented as of this encounter Visit Diagnoses Not on filedocumented in this encounter Additional Health Concerns Infection Onset Date Last Indicated Resolved Time 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, 01/08/2017 9 06/08/17, 08/26/17 documented as of this encounter Care Teams Medical Or Surgical Instrument Maker Relationship Specialty Start Date End Date Simon Claros MD PCP - General Internal Medicine 09/22/12 08/20/21 Simon Claros MD Assigned PCP 06/18/16 03/01/21 [address] [place], [place] [phone] documented as of this encounter
--- OUTSIDE RECORDS SUMMARY | 2022-08-20 14:25 | XMS_ITS | Encounter Summary ---
:1945 Author Organization [place] Address [address] [facility] [place] [address] Care Team Providers Name Role Phone Simon Claros MD Primary Care Provider Simon Claros MD Unavailable Encounter Details Date Type Department Care Team Description 02/05/2020 Orders Only [facility] Simon Claros, Chroni c obstructive Clinic Whitley HINES pulmonary disease, [address], [address] [facility] unspecified COPD type [address] (H) [place] [address] [place] [phone] Social History Tobacco Use Types Packs/Day [...] Lab Oncology Yris Perez MD [address] [address] (Madeleine proctor) 11/03/2022 Oncology Visit Oncology Yris Perez MD [address] [address] (Madeleine proctor) documented as of this encounter Visit Diagnoses Diagnosis Chronic obstructive pulmonary disease, u nspecified COPD type (H) documented in this encounter Additional Health Concerns Infection Onset Date Last Indicated Resolved Time 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, 01/08/2017 9 06/08/17, 08/26/17 documented as of this encounter Care Teams Supervisory Historian Relationship Specialty Start Date End Date Simon Claros MD PCP - General Internal Medicine 09/22/12 08/20/21 Simon Claros MD Assigned PCP 06/18/16 03/01/21 [address] [place] [address] [place] [phone] documented as of this encounter
--- OUTSIDE RECORDS SUMMARY | 2022-08-20 14:25 | XMS_ITS | Encounter Summary ---
:1945 Author Organization [place] Address [facility] [place] [address] Care Team Providers Name Role Phone Simon Claros MD Primary Care Provider Simon Claros MD Unavailable Encounter Details Date Type Department Care Team Description 02/23/2019 Travel Social History Tobacco Use Types Packs/Day [...] Description 10/26/2022 Lab Oncology Yris Perez MD [address] [place] [address] [phone] (Wo rk) 11/03/2022 Oncology Visit Oncology Yris Perez MD [address] [phone] (Wo rk) documented as of this encounter Visit Diagnoses Not on filedocumented in this encounter Additional Health Concerns Infection Onset Date Last Indicated Resolved Time 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, 01/08/2017 9 06/08/17, 08/26/17 documented as of this encounter Care Teams Blueprint Developer Relationship Specialty Start Date End Date Simon Claros MD PCP - General Internal Medicine 09/22/12 08/20/21 Simon Claros MD Assigned PCP 06/18/16 03/01/21 [address] [place], [place] [phone] documented as of this encounter
--- OUTSIDE RECORDS SUMMARY | 2022-08-20 14:25 | XMS_ITS | Encounter Summary ---
:1945 Author Organization [place] Address [facility] [place] [place] [address] Care Team Providers Name Role Phone Simon Claros MD Primary Care Provider Simon Claros MD Unavailable Encounter Details Date Type Department Care Team Description 03/02/2019 Travel Social History Tobacco Use Types Packs/Day [...] Description 10/26/2022 Lab Oncology Yris Perez MD [address] [place] [address] [phone] (Wo rk) 11/03/2022 Oncology Visit Oncology Yris Perez MD [address] [phone] (Wo rk) documented as of this encounter Visit Diagnoses Not on filedocumented in this encounter Additional Health Concerns Infection Onset Date Last Indicated Resolved Time 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, 01/08/2017 9 06/08/17, 08/26/17 documented as of this encounter Care Teams Deputy Sheriff Relationship Specialty Start Date End Date Simon Claros MD PCP - General Internal Medicine 09/22/12 08/20/21 Simon Claros MD Assigned PCP 06/18/16 03/01/21 [address] [place], [place] [phone] documented as of this encounter
--- OUTSIDE RECORDS SUMMARY | 2022-08-20 14:25 | XMS_ITS | Encounter Summary ---
:1945 Author Organization [place] Address [address] [facility] [place] [address] Care Team Providers Name Role Phone Simon Claros MD Primary Care Provider Simon Claros MD Unavailable Reason for Visit Reason Comments RECHECK cough Encounter Details Date Type Department Care Team Description 03/02/2019 Office Visit [facility] Simon Claros, Chroni c obstructive pulmonary disease, unspecified COPD type (H) (Primary Dx); Clinic Whitley HINES Benign essential hypertension; [address], [address] Fatigue, unspecified type [address] [place] [address] [place] [phone] Social History Tobacco Use Types Packs/Day Years Used Date Passive Smoke Exposure - Never Smoker Smokeless Tobacco: Never Used Alcohol Use Standard Drinks/Week Comments No 0 (1 standard drink = 0.6 oz pure alcoho l) Sex Assigned at Date Recorded Female 01/27/2022 12:36 PM CDT documented as of this encounter Last Filed Vital Signs Vital Sign Reading Time Taken Comments Blood Pressure 116/65 03/02/2019 11:24 AM CDT Pulse 75 03/02/2019 11:24 AM CDT Temperature 36.8 ??C (98.3 ??F) 03/02/2019 11:24 AM CDT Respiratory Rate - - Oxygen Saturation 95% 03/02/2019 11:24 AM CDT Inhaled Oxygen Concentration - - Weight 64.9 kg (143 lb) 03/02/2019 11:24 AM CDT Height 167.6 cm (5' 6) 03/02/2019 11:24 AM CDT Body Mass Index 23.08 03/02/2019 11:24 AM CDT documented in this encounter Progress Notes Simon Claros MD - 03/02/2019 11:00 AM CDT SUBJECTIVE: Darshana Brooks is a 73 year old female who presents to clinic today for the following health issues see virtual visit from last week Patient presents to clinic for follow up on respiratory symptoms. She states some improvement, but is noting low energy and states she is having moments of 'blacking out' in the morning. The sensation of blacking out seems to happen with paroxysms of coughing which seems to be improving gradually. Shedenies any wheezing, productivity of her cough, fevers, chills or sweats Additional history: as documented Reviewed and updated as needed this visit by clinical staff Tobacco Allergies Reviewed and updated as needed this visit by Provider Current Outpatient Medications Medication Sig Dispense Refill ??? ANASTROZOLE PO Take 1 mg by mouth daily ??? Cholecalciferol (VITAMIN D3 PO) Take 2,000 Units by mouth daily ??? ESTRADIOL PO ??? loratadine (CLARITIN) 10 MG tablet Take 10 mg by mouth ??? PROAIR HFA 108 (90 Base) MCG/ACT inhaler INHALE 2 PUFFS 4 TIMES A DAY NEEDED 8.5 Inhaler 5 ??? allopurinol (ZYLOPRIM) 300 MG tablet TAKE 1 TABLET (300 MG) BY MOUTH DAILY ADD DIRECTED TO PREVIOUS SCRIPT 90 tablet 3 Allergies Allergen Reactions ??? Other [No Clinical Screening - See Comments] PN: LW Other1: -latex:nasal congestion, eyes watering. LW Other2: -canteloupe, horses, cats, dust, molds, trees ??? Sulfamethoxazole Heartburn ??? Chlorhexidine Gluconate [Chlorhexidine] Rash ??? Latex Rash Other reaction(s): Other, see comments PN: sneezing, runny nose, ROS: Constitutional, HEENT, cardiovascular, pulmonary, gi and gu systems are negative, except as otherwise noted. OBJECTIVE: BP 116/65 (BP Location: Right arm, Patient Position: Sitting, Cuff Size: Adult Regular) Pulse 75 Temp 98.3 ??F (36.8 ??C) (Oral) Ht 1.676 m (5' 6) Wt 64.9 kg (143 lb) SpO2 95% ? No BMI 23.08 kg/m?? Body mass index is 23.08 kg/m??. GENERAL: healthy, alert and no distress HEENT nose and throat were clear NECK: no adenopathy, no asymmetry, masses, or scars and thyroid normal to palpation RESP: lungs clear to auscultation - no rales, rhonchi or wheezes however she has bibasilar crackles CV: regular rate and rhythm, normal S1 S2, no S3 or S4, no murmur, click or rub, no peripheral edemaand peripheral pulses strong ABDOMEN: soft, nontender, no hepatosplenomegaly, no masses and bowel sounds normal MS: no gross musculoskeletal defects noted, no edema ASSESSMENT/PLAN: There are no diagnoses linked to this encounter. 1. Chronic obstructive pulmonary disease, unspecified COPD type (H) Exacerbated by recent bronchitis which seems to be improving slowly. 2. Benign essential hypertension Well-controlled with current therapy 3. Fatigue, unspecified type Most likely associated with her acute illness 4. Acute bronchitis The patient seems to be responding slowly. Continue the same treatment program which at this standpoint is managing symptoms. Reviewed the possibility of allergies complicating her coughing and she will be watching this closely. If her symptoms are not abating in a timely fashion she needs to return to clinic and to have a follow-up chest x-ray. Simon Claros MD [facility] documented in this encounter Plan of Treatment Upcoming Encounters Date Type Specialty Care Team Description 10/26/2022 Lab Oncology Yris Perez MD [address] [phone] (Madeleine proctor) 11/03/2022 Oncology Visit Oncology Yris Perez MD [address] [phone] (Madeleine proctor) documented as of this encounter Visit Diagnoses Diagnosis Chronic obstructive pulmonary disease, u nspecified COPD type (H) - Primary Benign essential hypertension Essential hypertension, benign Fatigue, unspecified type documented in this encounter Additional Health Concerns Infection Onset Date Last Indicated Resolved Time 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, 01/08/2017 9 06/08/17, 08/26/17 documented as of this encounter Care Teams Back Shoe Worker Relationship Specialty Start Date End Date Simon Claros MD PCP - General Internal Medicine 09/22/12 08/20/21 Simon Claros MD Assigned PCP 06/18/16 03/01/21 [address] [facility] [address] [place] [phone] documented as of this encounter
--- OUTSIDE RECORDS SUMMARY | 2022-08-20 14:25 | XMS_ITS | Encounter Summary ---
:1945 Author Organization [place] Address [address] [facility] [place] [address] Care Team Providers Name Role Phone Simon Claros MD Primary Care Provider Simon Claros MD Unavailable Reason for Visit Reason Onset Date Comments Refill Request 02/23/2020 ESTRA/HRT B 0.02 Encounter Details Date Type Department Care Team Description 02/23/[address] [facility] Simon Claros, Refill Request Clinic Whitley HINES (ESTRA/HRT B 0.02) [address] [facility], [address] [facility] [address] [place] [address] [place] [phone] Social History Tobacco Use Types Packs/Day Years Used Date Passive Smoke Exposure - Never Smoker Smokeless Tobacco: Never Used Alcohol Use Standard Drinks/Week Comments No 0 (1 standard drink = 0.6 oz pure alcoho l) Sex Assigned at Date Recorded Female 01/27/2022 12:36 PM CDT documented as of this encounter Miscellaneous Notes Telephone Encounter - Simon Claros MD - 02/27/2020 4:25 PM CDT Contacted the [facility] pharmacy with refill request. Telephone Encounter - Twila Jansen CMA - 02/23/2020 3:51 PM CDT Please see patient request below. I cannot locate anything in patients chart indication this script. Please review. Thanks Twila Jansen CMA on 02/23/2020 at 3:55 PM ESTRA/HRT B 0.02 Written Quantity: Forty Two Sig: apply 1 gram into the vagina once daily in the evening for two weeks. Then decrease to 1 gram 3times weekly thereafter (dispense in tube with applicators) Last Written Prescription Date: Patient reported Last Fill Quantity: na, # refills: na Last Office Visit: 04/25/2019 Future Office visit: Routing refill request to provider for review/approval because: Drug not active on patient's medication list; Telephone Encounter - Vince Morales - 02/23/2020 3:10 PM CDT Pharmacy requesting refill for prescription but could not locate RX in patient med list. Prescription information: ESTRA/HRT B 0.02 Written Quantity: Forty Two Sig: apply 1 gram into the vagina once daily in the evening for two weeks. Then decrease to 1 gram 3times weekly thereafter (dispense in tube with applicators) documented in this encounter Plan of Treatment Upcoming Encounters Date Type Specialty Care Team Description 10/26/2022 Lab Oncology Yris Perez MD [address] [phone] (Madeleine rk) 11/03/2022 Oncology Visit Oncology Yris Perez MD [address] [phone] (Wo rk) documented as of this encounter Visit Diagnoses Diagnosis Chronic obstructive pulmonary disease, u nspecified COPD type (H) documented in this encounter Additional Health Concerns Infection Onset Date Last Indicated Resolved Time 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, 01/08/2017 9 06/08/17, 08/26/17 documented as of this encounter Care Teams Home Health Care Provider Relationship Specialty Start Date End Date Simon Claros MD PCP - General Internal Medicine 09/22/12 08/20/21 Simon Claros MD Assigned PCP 06/18/16 03/01/21 [address] [facility] [address] [place] [phone] documented as of this encounter
--- OUTSIDE RECORDS SUMMARY | 2022-08-20 14:25 | XMS_ITS | Encounter Summary ---
:1945 Author Organization [place] Address [address] [facility] [place] [address] Care Team Providers Name Role Phone Simon Claros MD Primary Care Provider Simno Claros MD Unavailable Reason for Visit Reason Onset Date Comments Patient Request 02/22/2019 strugling to breathe Encounter Details Date Type Department Care Team Description 02/22/[address] [facility] Simon Claros, Markell moreira Request Clinic Eduardo HINES (strugling to breathe ) [address] [facility], [address] [facility] [address] [place] [address] [place] [phone] Social History Tobacco Use Types Packs/Day Years Used Date Passive Smoke Exposure - Never Smoker Smokeless Tobacco: Never Used Alcohol Use Standard Drinks/Week Comments No 0 (1 standard drink = 0.6 oz pure alcoho l) Sex Assigned at Date Recorded Female 01/27/2022 12:36 PM CDT documented as of this encounter Miscellaneous Notes Telephone Encounter - Chely Rangel - 02/23/2019 11:14 AM CDT Pt is scheduled at 1pm for a telephone visit Telephone Encounter - Danielle Knutson - 02/23/2019 10:22 AM CDT Pt is calling to follow up on this. Telephone Encounter - Kanika Álvarez RN - 02/23/2019 9:24 AM CDT Pt called back she has OV at 11am today but is uncertain whether she can come due to the weather (but she didn't want to cancel yet) States symptoms are about the same She is using her 's phone today: [phone] She is asking if PCP would be willing to do a phone visit rather than OV due to the weather? Please advise Kanika Mendez RN Telephone Encounter - Zari Velasquez - 02/23/2019 9:21 AM CDT Pt called and stated that she might not be able to make her appointment today, but is concerned about her breathing. Telephone Encounter - Kanika Álvarez RN - 02/22/2019 8:49 AM CDT Pt transferred to triage 4 weeks ago had a bad cold or URI 2.5-3 weeks ago saw PCP and lungs sounded good despite congestion Coughing was worse before, but now just not getting over it Laying down wheezing and crackling Not feverish or chilled Breathing is more labored, less energy with this Does have COPD level 1 2 episodes of lightheadedness over the past few weeks Most phlegm staying in chest, if gets up is clear Lots of allergies, some exposure to mold Has been using inhaler and limiting to every 6 hours. Did discussed okay to use more frequently during an acute flare up per triage/MTM meeting last week. Advised OV but ER if symptoms severe. Pt cannot come this afternoon due to another appointment for her but scheduled for tomorrow AM. Also discussed UC hours if she needs to be seen tonight instead Next 5 appointments (look out 90 days) Feb 23, 2019 11:00 AM CDT Office Visit with Simon Claros MD [facility] [address] [place] [phone] Kanika Mendez, RN Telephone Encounter - Meg Wu - 02/22/2019 8:48 AM CDT documented in this encounter Plan of Treatment Upcoming Encounters Date Type Specialty Care Team Description 10/26/2022 Lab Oncology Yris Perez MD [address] [address] (Wo rk) 11/03/2022 Oncology Visit Oncology Yris Perez MD [address] [address] (Wo rk) documented as of this encounter Visit Diagnoses Not on filedocumented in this encounter Additional Health Concerns Infection Onset Date Last Indicated Resolved Time 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, 01/08/2017 9 06/08/17, 08/26/17 documented as of this encounter Care Teams Manager Electrical Relationship Specialty Start Date End Date Simon Claros MD PCP - General Internal Medicine 09/22/12 08/20/21 Simon Claros MD Assigned PCP 06/18/16 03/01/21 [address] [place] [address] [place] [phone] documented as of this encounter
--- OUTSIDE RECORDS SUMMARY | 2022-08-20 14:26 | XMS_ITS | Encounter Summary ---
:1945 Author Organization [place] Address [address] [facility] [place] [address] Care Team Providers Name Role Phone Simon Claros MD Primary Care Provider Simon Claros MD Unavailable Simon Claros MD Unavailable Reason for Referral - Closed Specialty Diagnoses / Procedures Referred By Contact Refer red To Contact Diagnoses Visit for screening mammogram Simon Claros MD Procedures MA Screen Bilateral w/Ricardo [address] [place] [address] Referral ID Status Reason Start Date Expiration Date Visits Requ ested Visits Authorized [id number] Closed 01/27/2018 01/27/2019 1 1 Reason for Visit (Routine) - Closed Specialty Diagnoses / Procedures Referred By Contact Refer zan To Contact Radiology / Radiology. Diagnoses Written orders Sh Breast Imaging Procedures MA SCREENING BILATERAL W/ RICARDO [address] [facility], [address] [place] [address] Phone: Referral ID Status Reason Start Date Expiration Date Visits Requ ested Visits Authorized [id number] Closed 01/18/2018 01/18/2019 1 1 Encounter Details Date Type Department Care Team Description 01/27/2018 Hospital Encounter [facility] Simon Claros it for [facility] [address] [facility] [address], [address] [place] [phone] Social History Tobacco Use Types Packs/Day Years Used Date Passive Smoke Exposure - Never Smoker Smokeless Tobacco: Never Used Alcohol Use Standard Drinks/Week Comments No 0 (1 standard drink = 0.6 oz pure alcoho l) Sex Assigned at Date Recorded Female 01/27/2022 12:36 PM CDT documented as of this encounter Medications at Time of Discharge Medication Sig Dispensed Refills Start Date End Date Cholecalciferol (VITAMIN D3 Take 2,000 Units 0 PO) by mouth daily loratadine (CLARITIN) 10 MG Take 10 mg by 0 tablet mouth albuterol (PROAIR Inhale 2-4 puffs 0 0 04/20/2018 HFA/PROVENTIL HFA/VENTOLIN into the lungs as HFA) 108 (90 BASE) MCG/ACT needed Inhaler ANASTROZOLE PO Take 1 mg by mouth 0 daily ESTRADIOL PO 0 09/26/2020 POLYETH GLYC-PROPYLENE GLYC 0 03/02/2019 NA documented as of this encounter Plan of Treatment Upcoming Encounters Date Type Specialty Care Team Description 10/26/2022 Lab Oncology Yris Perez MD [address] [place] [phone] (Madeleine proctor) 11/03/2022 Oncology Visit Oncology Yris Perez MD [address] [place] [address] [phone] (Madeleine proctor) documented as of this encounter Procedures Procedure Name Priority Date/Time Associated Diagnosis Comme nts MA SCREENING Routine 01/27/2018 11:29 AM Visit for screening R esults for this BILATERAL W/ RICARDO CDT mammogram procedure are in the results section. documented in this encounter Results MA Screen Bilateral w/Ricardo (01/27/2018 11:29 AM CDT) Anatomical Region Laterality Modality Breast Bilateral Mammography Specimen (Source) Anatomical Location Collection Method / Collectio n Time Received Time / Laterality Volume Impressions 01/27/2018 1:57 PM CDT IMPRESSION: BI-RADS CATEGORY: 2 - Benign. RECOMMENDED FOLLOW-UP: Annual Mammograph y. Exam results letter mailed to patient. THALIA DUNLAP MD Narrative 01/27/2018 1:57 PM CDT SCREENING MAMMOGRAM, BILATERAL, DIGITAL w/CAD and TOMOSYNTHESIS - 01/27/2018 11:29 AM BREAST SYMPTOMS: No current breast compl aints. COMPARISON: ??01/13/2017, 01/08/2016, 2014, 10/12/2012. BREAST DENSITY: Heterogeneously dense. COMMENTS: No findings of suspicion for m alignancy. ?? Changes of breast conserving therapy in the right breast. Procedure Note Thalia Dunlap MD - 01/27/2018F ormatting of this note might be different from the original. SCREENING MAMMOGRAM, BILATERAL, DIGITAL w/CAD and TOMOSYNTHESIS - 01/27/2018 11:29 AM BREAST SYMPTOMS: No current breast compl aints. COMPARISON: 01/13/2017, 01/08/2016, 11/28/19, 10/12/2012. BREAST DENSITY: Heterogeneously dense. COMMENTS: No findings of suspicion for m alignancy. Changes of breast conserving therapy in the right breast. IMPRESSION: BI-RADS CATEGORY: 2 - Benign . RECOMMENDED FOLLOW-UP: Annual Mammograph y. Exam results letter mailed to patient. 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
--- OUTSIDE RECORDS SUMMARY | 2022-08-20 14:26 | XMS_ITS | Encounter Summary ---
:1945 Author Organization [place] Address [address] [facility] [place] [address] Care Team Providers Name Role Phone Simon Claros MD Primary Care Provider Simon Claros MD Unavailable Simon Claros MD Unavailable Reason for Visit Reason Comments Pre-Op Exam Encounter Details Date Type Department Care Team Description 12/06/2017 Office Visit [facility] Simon Claros, Preop general physical exam (Primary Dx); Clinic Eduardo HINES History of frequent urinary tract infect ions; [address] [facility], [address] [facility] Chronic obstructive pulmonary disease, unspecified COPD type (H); [address] [place] [address] Malignant neoplasm of female breast, uns pecified estrogen receptor status, unspecified laterality, unspecified site of breast (H) [place] [address] [place] [phone] [address] Social History Tobacco Use Types Packs/Day Years Used Date Passive Smoke Exposure - Never Smoker Smokeless Tobacco: Never Used Alcohol Use Standard Drinks/Week Comments No 0 (1 standard drink = 0.6 oz pure alcoho l) Sex Assigned at Date Recorded Female 01/27/2022 12:36 PM CDT documented as of this encounter Last Filed Vital Signs Vital Sign Reading Time Taken Comments Blood Pressure 143/82 12/06/2017 9:06 AM JEWELRY D[facility] Pulse 77 12/06/2017 9:06 AM [facility]EL[facility]IP[facility] Temperature 36.6 ??C (97.9 ??F) 12/06/2017 9:06 AM [facility] Respiratory Rate - - Oxygen Saturation 97% 12/06/2017 9:06 AM JEWELRY DIPPER Inhaled Oxygen Concentration - - Weight 66.7 kg (147 lb) 12/06/2017 9:06 AM [facility] Height 167.6 cm (5' 6) 12/06/2017 9:06 AM [facility] Body Mass Index 23.73 12/06/2017 9:06 AM JEWEL[facility] DIP[facility] documented in this encounter Patient Instructions Patient InstructionsCharmaine Sam CMA - 12/03/2017 12:41 PM CST Before Your Surgery ??? Call your surgeon if there is any change in your health. This includes signs of a cold or flu (such as a sore throat, runny nose, cough, rash or fever). ??? Do not smoke, drink alcohol or take over the counter medicine (unless your surgeon or primary care doctor tells you to) for the 24 hours before and after surgery. ??? If you take prescribed drugs: Follow your doctor???s orders about which medicines to take and which to stop until after surgery. ??? Eating and drinking prior to surgery: follow the instructions from your surgeon ??? Take a shower or bath the night before surgery. Use the soap your surgeon gave you to gently clean your skin. If you do not have soap from your surgeon, use your regular soap. Do not shave or scrubthe surgery site. Wear clean pajamas and have clean sheets on your bed. LRY DIPPER documented in this encounter Progress Notes Simon Claros MD - 12/03/2017 12:41 PM CST [address] [address] Dept: [phone] PRE-OP EVALUATION: Today's date: 12/06/2017 Darshana Brooks (: 1945) presents for pre-operative evaluation assessment as requested by Iggy Simpson MD. She requires evaluation and anesthesia risk assessment prior to undergoing surgery/procedure for treatment of CYSTOSCOPY . Proposed procedure: Video Cystoscopy Rigid and Flexible Date of Surgery/ Procedure: 12/09/17 Time of Surgery/ Procedure: 1250pm Hospital/Surgical Facility: [facility] Primary Physician: Simon Claros Type of Anesthesia Anticipated: General Patient has a Health Care Directive or Living Will: YES 1. NO - Do you have a history of heart attack, stroke, stent, bypass or surgery on an artery in the head, neck, heart or legs? 2. NO - Do you ever have any pain or discomfort in your chest? 3. NO - Do you have a history of Heart Failure? 4. NO - Are you troubled by shortness of breath when: walking on the level, up a slight hill or at night? 5. yes - Do you currently have a cold, bronchitis or other respiratory infection? 6. NO - Do you have a cough, shortness of breath or wheezing? 7. NO - Do you sometimes get pains in the calves of your legs when you walk? 8. NO - Do you or anyone in your family have previous history of blood clots? 9. NO - Do you or does anyone in your family have a serious bleeding problem such as prolonged bleeding following surgeries or cuts? 10. NO - Have you ever had problems with anemia or been told to take iron pills? 11. yes - Have you had any abnormal blood loss such as black, tarry or bloody stools, or abnormal vaginal bleeding? 12. NO - Have you ever had a blood transfusion? 13. NO - Have you or any of your relatives ever had problems with anesthesia? 14. NO - Do you have sleep apnea, excessive snoring or daytime drowsiness? 15. NO - Do you have any prosthetic heart valves? 16. yes - Do you have prosthetic joints? 17. NO - Is there any chance that you may be ? HPI: Brief HPI related to upcoming procedure: Patient presents to the clinic for an evaluation and anesthesia risk assessment before she undergoesa cystoscopy. 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 She also reportsundergoing a similar procedure an experienced discomfort for three days after the procedure. She hasa history of frequent UTIs and will be evaluating the etiology of the UTIs with this procedure. Her frequency has remained stable. She reports that she was recently in [place] and due to inhaling smog. She reports having a cough and hoarseness. She states that her symptoms are improving. She denies sinus issues, headaches, vision changes, neck or back issues, dyspnea, angina, palpitations, heartburn, diarrhea, constipation, and skin changes. She is currently taking Atovanquone-proquanil for malaria prevention. MEDICAL HISTORY: Patient Active Problem List Diagnosis Date Noted ??? Strain of neck muscle, initial encounter 01/25/2017 Priority: Medium ??? Chronic obstructive pulmonary disease, unspecified COPD type (H) 01/05/2017 Priority: Medium ??? ACP (advance care planning) 06/02/2016 Priority: Medium Advance Care Planning 06/02/2016: Receipt of ACP document: Received: Health Care Directive which waswitnessed or notarized on 02/26/16. Document previously scanned on 03/10/16. Validation form previously completed and sent to be scanned. Code Status reflects choices in most recent ACP document. Confirmed/documented designated decision maker(s). Added by Sruthi Andersen RN, Advance Care Planning Liaison. ??? Right hip pain 03/10/2016 Priority: Medium Past Medical History: Diagnosis Date ??? Cancer (H) breast ??? COPD (chronic obstructive pulmonary disease) (H) Past Surgical History: Procedure Laterality Date ??? ARTHROPLASTY HIP ANTERIOR Right 03/10/2016 Procedure: ARTHROPLASTY HIP ANTERIOR; Surgeon: Wayne Estevez MD; Location: OR ??? BIOPSY NODE SENTINEL Right 02/08/2017 Procedure: BIOPSY NODE SENTINEL; Surgeon: Jordin Atkins MD; Location: [facility] ??? COLONOSCOPY N/A 06/03/2017 Procedure: COLONOSCOPY; COLONOSCOPY ; Surgeon: Alejo Aburto MD; Location: [facility] ??? 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 LUMPECTOMY BREAST WITH SEED LOCALIZATION Right 02/08/2017 Procedure: LUMPECTOMY BREAST WITH SEED LOCALIZATION; Surgeon: Jordin Atkins MD; Location: [facility] ??? ORTHOPEDIC SURGERY hip replacement Current Outpatient Prescriptions Medication Sig Dispense Refill ??? cephALEXin (KEFLEX) 500 MG capsule Take 1 capsule (500 mg) by mouth 3 times daily 30 capsule 0 ??? ciprofloxacin (CIPRO) 250 MG tablet Take 1 tablet (250 mg) by mouth 2 times daily X 5 days prn 30 tablet 1 ??? nitroFURantoin, macrocrystal-monohydrate, (MACROBID) 100 MG capsule Take 1 capsule (100 mg) by mouth daily (Patient not taking: Reported on 10/12/2017) 30 capsule 3 ??? ANASTROZOLE PO Take 1 mg by mouth daily ??? albuterol (PROAIR HFA/PROVENTIL HFA/VENTOLIN HFA) 108 (90 BASE) MCG/ACT Inhaler Inhale 2-4 puffsinto the lungs ??? loratadine (CLARITIN) 10 MG tablet Take 10 mg by mouth ??? Cholecalciferol (VITAMIN D3 PO) Take 2,000 Units by mouth daily OTC products: None, except as noted above Allergies Allergen Reactions ??? Other [No Clinical Screening - See Comments] PN: LW Other1: -latex:nasal congestion, eyes watering. LW Other2: -canteloupe, horses, cats, dust, molds, trees ??? Sulfamethoxazole Heartburn ??? Chlorhexidine Gluconate [Chlorhexidine] Rash ??? Latex Rash Other reaction(s): Other, see comments PN: sneezing, runny nose, Latex Allergy: NO Social History Substance Use Topics ??? Smoking status: Passive Smoke Exposure - Never Smoker ??? Smokeless tobacco: Never Used ??? Alcohol use No History Drug Use No REVIEW OF SYSTEMS: C: NEGATIVE for fever, chills, change in weight I: NEGATIVE for worrisome rashes, moles or lesions E: NEGATIVE for vision changes or irritation E/M: NEGATIVE for ear, mouth and throat problems R: NEGATIVE for significant cough or SOB B: NEGATIVE for masses, tenderness or discharge CV: NEGATIVE for chest pain, palpitations or peripheral edema GI: NEGATIVE for nausea, abdominal pain, heartburn, or change in bowel habits : NEGATIVE for frequency, dysuria, or hematuria M: NEGATIVE for significant arthralgias or myalgia N: NEGATIVE for weakness, dizziness or paresthesias E: NEGATIVE for temperature intolerance, skin/hair changes H: NEGATIVE for bleeding problems P: NEGATIVE for changes in mood or affect This document serves as a record of the services and decisions personally performed and made by GaryL. Hyacinth MD. It was created on his/her behalf by Megan Cannon, a trained medical laboratory technologist. The creation of this document is based the provider's statements to the medical laboratory technologist. Meg Cannon 9:22 AM, December 06, 2017 EXAM: BP 143/82 Pulse 77 Temp 97.9 ??F (36.6 ??C) (Oral) Ht 1.676 m (5' 6) Wt 66.7 kg (147 lb) SpO2 97% ? No BMI 23.73 kg/m2 GENERAL APPEARANCE: healthy, alert and no distress EYES: EOMI, PERRL HENT: ear canals and TM's normal and nose and mouth without ulcers or lesions NECK: no adenopathy, no asymmetry, masses, or scars and thyroid normal to palpation RESP: lungs clear to auscultation - no rales, rhonchi or wheezes BREAST: normal without masses, tenderness or nipple discharge and no palpable axillary masses or adenopathy, right breast was non tender without masses or organomegaly, her previus surgery was non tender and her sentinel node incision was non tender no other palpable axillary masses CV: regular rates and rhythm, normal S1 S2, no S3 or S4 and no murmur, click or rub ABDOMEN: soft, nontender, no HSM or masses and bowel sounds normal MS: extremities normal- no gross deformities noted, no evidence of inflammation in joints, FROM in all extremities. SKIN: no suspicious lesions or rashes NEURO: Normal strength and tone, sensory exam grossly normal, mentation intact and speech normal PSYCH: mentation appears normal. and affect normal/bright LYMPHATICS: No axillary, cervical, or supraclavicular nodes DIAGNOSTICS: EKG: Sinus Rhythm No results found for this or any previous visit (from the past 24 hour(s)). CBC,BMP,EKG IMPRESSION: The proposed surgical procedure is considered LOW risk. REVISED CARDIAC RISK INDEX The patient has the following serious cardiovascular risks for perioperative complications such as (DC, PE, VFib and 3?? AV Block): No serious cardiac risks INTERPRETATION: 0 risks: Class I (very low risk - 0.4% complication rate) The patient has the following additional risks for perioperative complications: No identified additional risks ICD-10-CM 1. Preop general physical exam Z01.818 Basic metabolic panel CBC with platelets UA reflex to Microscopic and Culture EKG 12-lead complete w/read - Clinics Urine Microscopic 2. History of frequent urinary tract infections Z87.440 3. Chronic obstructive pulmonary disease, unspecified COPD type (H) J44.9 4. Malignant neoplasm of female breast, unspecified estrogen receptor status, unspecified laterality, unspecified site of breast (H) C50.919 RECOMMENDATIONS: --Patient is to take all scheduled medications on the day of surgery EXCEPT for modifications listedbelow. APPROVAL GIVEN to proceed with proposed procedure, without further diagnostic evaluation Signed Electronically by: Simon Claros MD The information in this document, created by the medical laboratory technologist for me, accurately reflects the services I personally performed and the decisions made by me. I have reviewed and approved this document for accuracy prior to leaving the patient care area. Simon lCaros MD 11:10 AM, 12/06/17 Copy of this evaluation report is provided to requesting physician. [facility] Preop Guidelines LRY DIPPER documented in this encounter Nursing Notes Charmaine Sam CMA - 12/06/2017 9:30 AM CST Chief Complaint Patient presents with ??? Pre-Op Exam Initial BP 143/82 Pulse 77 Temp 97.9 ??F (36.6 ??C) (Oral) Ht 5' 6 (1.676 m) Wt 147 lb (66.7 kg) SpO2 97% ? No BMI 23.73 kg/m2 Estimated body mass index is 23.73 kg/(m^2) ascalculated from the following: Height as of this encounter: 5' 6 (1.676 m). Weight as of this encounter: 147 lb (66.7 kg). Medication Reconciliation: complete Charmaine Waldron CMA LRY DIPPER documented in this encounter Plan of Treatment Upcoming Encounters Date Type Specialty Care Team Description 10/26/2022 Lab Oncology Yris Perez MD [address] [place] [id number] (Wo rk) 11/03/2022 Oncology Visit Oncology Yris Perez MD [address] [id number] (Wo rk) documented as of this encounter Procedures Procedure Name Priority Date/Time Associated Comments Diagnosis URINE MICROSCOPIC Routine 12/06/2017 10:01 Preop general Resul ts for this AM JEWELRY DIPPER physical exam procedure are in the results section. UA MACROSCOPIC WITH Routine 12/06/2017 10:01 Preop general Res ults for this REFLEX TO MICROSCOPIC AM JEWELRY DIPPER physical exam proce dure are in AND CULTURE the results section. BASIC METABOLIC PANEL Routine 12/06/2017 10:00 Preop general R esults for this AM JEWELRY DIPPER physical exam procedure are in the results section. CBC WITH PLATELETS Routine 12/06/2017 10:00 Preop general Resu lts for this AM JEWELRY DIPPER physical exam procedure are in the results section. EKG 12-LEAD COMPLETE Routine 12/06/2017 9:47 AM Preop general Results for this W/READ - CLINICS [facility] physical exam procedure are in the results section. documented in this encounter Results (ABNORMAL) Urine Microscopic (12/06/2017 10:01 AM JEWELRY DIPPER) Analysis Performed At Patho logist Time Signature WBC Urine O - 2 OTO2^O - 2 12/06/2017 [facility] /HPF 10:28 AM [facility] [place] RBC Urine 2-5 (A) OTO2^O - 2 12/06/2017 [facility] /HPF 10:28 AM [facility] [place] Hyaline Casts 5-10 (A) OTO2^O - 2 12/06/2017 [facility] /LPF 10:28 AM [facility] [place] Squamous Few FEW^Few 12/06/2017 [facility] Epithelial /LPF /LPF 10:28 AM [facility] [place] [facility] Urine Bacteria Urine Few (A) NEG^Negati 12/06/2017 [facility] ve /HPF 10:28 AM [facility] [place] Specimen Anatomical Collection Method Collection Time Receive d Time (Source) Location / / Volume Laterality 12/06/2017 10:01 12/06/2017 AM [facility] 10:02 AM JEWELRY DIPPER Simon Claros MD LAB - URINE ORDERABLES Performing Organization Address City/State/ZIP Code Phon e Number [facility] [address] [place] [address] (ABNORMAL) UA reflex to Microscopic and Culture (12/06/2017 10:01 AM [facility]) Patholo gist Method Time Signature Color Urine Yellow 12/06/2017 [facility] 10:28 AM [facility] [place] Appearance Urine Clear 12/06/2017 [facility] 10:28 AM [facility] [place] Glucose Urine Negative NEG^Negat 12/06/2017 [facility] dee mg/dL 10:28 AM [facility] [place] Bilirubin Urine Negative NEG^Negat 12/06/2017 [facility] dee 10:28 AM [facility] [place] Ketones Urine Negative NEG^Negat 12/06/2017 [facility] dee mg/dL 10:28 AM [facility] [place] Specific [place] 1.010 1.003 - 12/06/2017 [facility] Urine 1.035 10:28 AM [facility] [place] Blood Urine Small (A) NEG^Negat 12/06/2017 [facility] dee 10:28 AM [facility] [place] pH Urine 5.5 5.0 - 7.0 12/06/2017 [facility] pH 10:28 AM [facility] [place] Protein Albumin Negative NEG^Negat 12/06/2017 [facility] Urine dee mg/dL 10:28 AM [facility] [place] Urobilinogen 0.2 0.2 - 1.0 12/06/2017 [facility] Urine EU/dL 10:28 AM [facility] [place] Nitrite Urine Negative NEG^Negat 12/06/2017 [facility] 10:28 AM [facility] [place] Leukocyte Negative NEG^Negat 12/06/2017 [facility] Esterase Urine dee 10:28 AM [facility] [place] Source Midstream 12/06/2017 [facility] Urine 10:28 AM [facility] [place] Specimen (Source) Anatomical Collection Method Collection Time Re ceived Time Location / / Volume Laterality Examination of 12/06/2017 10:01 8 midstream urine AM [facility] 10:02 AM [facility]IP[facility] specimen (procedure) Simon Claros MD LAB - URINE ORDERABLES Performing Organization Address City/State/ZIP Code Phon e Number [facility] [place] [address] [place] [address] (ABNORMAL) CBC with platelets (12/06/2017 10:00 AM [facility]) P athologist Signature WBC 3.8 (L) 4.0 - 11.0 12/06/2017 [facility] 10e9/L 10:23 AM [facility] [place] RBC Count 4.78 3.8 - 5.2 12/06/2017 [facility] 10e12/L 10:23 AM [facility] [place] Hemoglobin 15.3 11.7 - 12/06/2017 [facility] 15.7 g/dL 10:23 AM [facility] [place] Hematocrit 44.7 35.0 - 12/06/2017 [facility] 47.0 % 10:23 AM [facility] [place] MCV 94 78 - 100 12/06/2017 [facility] fl 10:23 AM [facility] [place] MCH 32.0 26.5 - 12/06/2017 [facility] 33.0 pg 10:23 AM [facility] [place] MCHC 34.2 31.5 - 12/06/2017 [facility] 36.5 g/dL 10:23 AM [facility] [place] RDW 14.3 10.0 - 12/06/2017 [facility] 15.0 % 10:23 AM [facility] [place] Platelet Count 202 150 - 450 12/06/2017 [facility] 10e9/L 10:23 AM JEWEL[facility] DIPPER [facility] Specimen Anatomical Collection Method Collection Time Receive d Time (Source) Location / / Volume Laterality Blood specimen 12/06/2017 10:00 8 (specimen) AM [facility]EL[facility]IP[facility] 10:01 AM [facility]EL[facility] D[facility] Simon Claros MD LAB - BLOOD ORDERABLES Performing Organization Address City/State/ZIP Code Phon e Number [facility] [address] [place] [address] Basic metabolic panel (12/06/2017 10:00 AM [facility]) P athologist Signature Sodium 143 133 - 144 12/06/2017 [facility] mmol/L 3:18 PM [facility] [place] Potassium 4.5 3.4 - 5.3 12/06/2017 [facility] mmol/L 3:18 PM [facility] [place] Chloride 109 94 - 109 12/06/2017 [facility] mmol/L 3:18 PM [facility] Carbon Dioxide 24 20 - 32 12/06/2017 [facility] mmol/L 3:18 PM [facility] Anion Gap 10 3 - 14 12/06/2017 [facility] mmol/L 3:18 PM [facility] Glucose 90 70 - 99 12/06/2017 [facility] mg/dL 3:18 PM [facility] Urea Nitrogen 11 7 - 30 12/06/2017 [facility] mg/dL 3:18 PM [facility] Creatinine 0.90 0.52 - 12/06/2017 [facility] 1.04 mg/dL 3:18 PM [facility] GFR Estimate 62 >60 12/06/2017 [facility] mL/min/1.7 3:18 PM [facility] m2 [facility] Comment: Non GFR Calc GFR Estimate If 75 >60 mL/min/1.7m2 12/06/2017 3:18 P M [facility] Black [facility] Comment: GFR Calc Calcium 8.9 8.5 - 10.1 mg/dL 12/06/2017 3:18 PM [facility] Specimen Anatomical Collection Method Collection Time Receive d Time (Source) Location / / Volume Laterality Blood specimen 12/06/2017 10:00 8 (specimen) AM [facility]EL[facility] DIPPER 10:01 AM JEWEL[facility] DIP[facility] Simon Claros MD LAB - BLOOD ORDERABLES Performing Organization Address City/State/ZIP Code Phon e Number [facility] [address] [place] [address] EKG 12-lead complete w/read - Clinics (12/06/2017 9:47 AM J[facility]EL[facility] DIP[facility]) Specimen (Source) Anatomical Collection Method Collection Time Re ceived Time Location / / Volume Laterality 12/06/2017 9:47 AM JEWELRY DIPPER Narrative This result has an attachment that is no t available. Simon Claros MD ECG ORDERABLES documented in this encounter Visit Diagnoses Diagnosis Preop general physical exam - Primary Other specified pre-operative examinatio n History of frequent urinary tract infect ions Personal history of urinary (tract) infe ction Chronic obstructive pulmonary disease, u nspecified COPD type (H) Malignant neoplasm of female breast, uns pecified estrogen receptor status, unspecified laterality, unspecified site of breast (H) documented in this encounter Additional Health Concerns Infection Onset Date Last Indicated Resolved Time 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, 01/08/2017 9 06/08/17, 08/26/17 documented as of this encounter Care Teams Wood Pile Driver Operator Relationship Specialty Start Date End Date Simon Claros MD PCP - General Internal Medicine 09/22/12 08/20/21 Simon Claros MD PCP - Assigned PCP 06/18/16 01/17/19 [address] [place] [address] Simon Claros MD Assigned PCP 06/18/16 03/01/21 [address] [place] [address] documented as of this encounter
--- OUTSIDE RECORDS SUMMARY | 2022-08-20 14:26 | XMS_ITS | Encounter Summary ---
:1945 Author Organization [place] Address [address] [facility] [place] [address] Care Team Providers Name Role Phone Simon Claros MD Primary Care Provider Simon Claros MD Unavailable Reason for Visit Reason Comments Erroneous encounter-disregard rescheduled Encounter Details Date Type Department Care Team Description 01/30/2019 Office Visit [employer] Simon Claros, [facility] HINES ENCOUNTER--DISREGARD [address] [facility], [address] [place] [address] [place] [phone] [address] Social History Tobacco Use Types Packs/Day Years Used Date Passive Smoke Exposure - Never Smoker Smokeless Tobacco: Never Used Alcohol Use Standard Drinks/Week Comments No 0 (1 standard drink = 0.6 oz pure alcoho l) Sex Assigned at Date Recorded Female 01/27/2022 12:36 PM CDT documented as of this encounter Patient Instructions Patient InstructionsCharmaine Sam, [facility] - 01/30/2019 9:30 AM CDT Preventive Health Recommendations See your health care provider every year to ?? Review health changes. ?? Discuss preventive care. ?? Review your medicines if your doctor has prescribed any. ??? You no longer need a yearly Pap test unless you've had an abnormal Pap test in the past 10 years. If you have vaginal symptoms, such as bleeding or discharge, be sure to talk with your provider about a Pap test. ??? Every 1 to 2 years, have a mammogram. If you are over 69, talk with your health care provider about whether or not you want to continue having screening mammograms. ??? Every 10 years, have a colonoscopy. Or, have a yearly FIT test (stool test). These exams will check for colon cancer. ??? Have a cholesterol test every 5 years, or more often if your doctor advises it. ??? Have a diabetes test (fasting glucose) every three years. If you are at risk for diabetes, you should have this test more often. ??? At age 65, have a bone density scan (DEXA) to check for osteoporosis (brittle bone disease). Shots: ??? Get a flu shot each year. ??? Get a tetanus shot every 10 years. ??? Talk to your doctor about your pneumonia vaccines. There are now two you should receive - Pneumovax (PPSV 23) and Prevnar (PCV 13). ??? Talk to your pharmacist about the shingles vaccine. ??? Talk to your doctor about the hepatitis B vaccine. Nutrition: ??? Eat at least 5 servings of fruits and vegetables each day. ??? Eat whole-grain bread, whole-wheat pasta and brown rice instead of white grains and rice. ??? Get adequate Calcium and Vitamin D. Lifestyle ??? Exercise at least 150 minutes a week (30 minutes a day, 5 days a week). This will help you control your weight and prevent disease. ??? Limit alcohol to one drink per day. ??? No smoking. ??? Wear sunscreen to prevent skin cancer. ??? See your dentist twice a year for an exam and cleaning. ??? See your eye doctor every 1 to 2 years to screen for conditions such as glaucoma, macular degeneration and cataracts. Personalized Prevention Plan You are due for the preventive services outlined below. Your care team is available to assist you inscheduling these services. If you have already completed any of these items, please share that information with your care team to update in your medical record. Health Maintenance Due Topic Date Due ??? COPD ACTION PLAN Q1 YR 1945 ??? Hepatitis C Screening 1963 ??? Zoster (Shingles) Vaccine (1 of 2) 1997 ??? Flu Vaccine (1) 07/16/2018 ??? Annual Wellness Visit 01/27/2019 ??? FALL RISK ASSESSMENT 01/27/2019 ??? Diptheria Tetanus Pertussis (DTAP/TDAP/TD) Vaccine (3 - Td) 02/11/2019 documented in this encounter Progress Notes Charmaine Sam CMA - 01/30/2019 9:30 AM CDT escheduledCanCancelled & rescheduled documented in this encounter Plan of Treatment Upcoming Encounters Date Type Specialty Care Team Description 10/26/2022 Lab Oncology Yris Perez MD [address] [address] (Wo rk) 11/03/2022 Oncology Visit Oncology Yris Perez MD 420 [facility] [address] [place] [address] (Wo rk) documented as of this encounter Visit Diagnoses Diagnosis ERRONEOUS ENCOUNTER--DISREGARD documented in this encounter Additional Health Concerns Infection Onset Date Last Indicated Resolved Time 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, 01/08/2017 9 06/08/17, 08/26/17 documented as of this encounter Care Teams Principal Database Developer Relationship Specialty Start Date End Date Simon Claros MD PCP - General Internal Medicine 09/22/12 08/20/21 Simon Claros MD Assigned PCP 06/18/16 03/01/21 [address] [place] [address] documented as of this encounter
--- OUTSIDE RECORDS SUMMARY | 2022-08-20 14:26 | XMS_ITS | Encounter Summary ---
:1945 Author Organization [place] Address [address] [facility] [place] [address] Care Team Providers Name Role Phone Simon Claros MD Primary Care Provider Simon Claros MD Unavailable Simon Claros MD Unavailable Reason for Visit Reason Comments Other FU Encounter Details Date Type Department Care Team Description 12/23/2017 Office Visit [facility] Iggy Nascimento [facility] Urology Clinic urinary tract [place] [address] infections (Primary [address]) [place], [place] [address] [address] [place], [place] [phone] [address] (Work) [phone] Social History Tobacco Use Types Packs/Day Years Used Date Passive Smoke Exposure - Never Smoker Smokeless Tobacco: Never Used Alcohol Use Standard Drinks/Week Comments No 0 (1 standard drink = 0.6 oz pure alcoho l) Sex Assigned at Date Recorded Female 01/27/2022 12:36 PM CDT documented as of this encounter Last Filed Vital Signs Vital Sign Reading Time Taken Comments Blood Pressure - - Pulse 72 12/23/2017 8:32 AM SAIL MAKER Temperature - - Respiratory Rate - - Oxygen Saturation 96% 12/23/2017 8:32 AM SAIL MAKER Inhaled Oxygen Concentration - - Weight 66.2 kg (146 lb) 12/23/2017 8:32 AM SAIL MAKER Height 167.6 cm (5' 6) 12/23/2017 8:32 AM SAIL MAKER Body Mass Index 23.57 12/23/2017 8:32 AM SAIL MAKER documented in this encounter Progress Notes Iggy Nascimento MD - 12/23/2017 8:30 AM CST Darshana Brooks is a 72-year-old female who has had recurrent bacterial cystitis. Her CT scan was unremarkable except for a bladder diverticulum. On cystoscopy and gravity cystogram the diverticulum was not noted and could not be reproduced. Her bladder mucosa and urethral mucosa are normal and there is no urethral diverticulum. It was recommended that she start 0.01% Estrace vaginal cream to combat bacterial colonization. She has found that she cannot afford estrogen vaginal cream at this time. This morning urine is normal. She has Macrobid at home for self treatment. Other past medical history: Reviewed Medications: No change Allergies: Sulfa, chlorhexidine, latex Exam: With spell's. Alert and oriented, normocephalic, normal respirations Reviewed gravity cystogram and CT with patient and . Assessment: Recurrent bacterial cystitis, history of breast cancer Plan: Macrobid 100 mg every 12 hours with food times 3-5 days p.r.n. UTI symptoms. Will try and finda more affordable estrogen vaginal cream MAKER documented in this encounter Nursing Notes Thierno Miller CMA - 12/23/2017 8:30 AM CST Pt here bc discharge paper said she had an appt. Pt states no problems. DAda Miller CMA MAKER documented in this encounter Miscellaneous Notes Addendum Note - Iggy Nascimento MD - 12/23/2017 8:52 AM SAIL MAKER Addended by: IGGY NASCIMENTO on: 12/23/2017 08:52 AM Modules accepted: Orders MAKER documented in this encounter Plan of Treatment Upcoming Encounters Date Type Specialty Care Team Description 10/26/2022 Lab Oncology Yris Perez MD [address] [phone] (Wo rk) 11/03/2022 Oncology Visit Oncology rYis Perez MD 420 [facility] [address] [place] [address] (Wo rk) documented as of this encounter Procedures Procedure Name Priority Date/Time Associated Comments Diagnosis URINE MACROSCOPIC Routine 12/23/2017 8:36 AM History of freque nt Results for this ONLY SAIL MAKER urinary tract procedure are in infections the results section. documented in this encounter Results (ABNORMAL) UA without Microscopic (12/23/2017 8:36 AM SAIL MAKER) [facility] Method Time Signature Color Urine Yellow 12/23/2017 [facility] 9:17 AM [facility] Appearance Urine Clear 12/23/2017 [facility] 9:17 AM [facility] Glucose Urine Negative NEG^Negat 12/23/2017 [facility] dee mg/dL 9:17 AM [facility] Bilirubin Urine Negative NEG^Negat 12/23/2017 [place] dee 9:17 AM [facility] Ketones Urine Negative NEG^Negat 12/23/2017 [facility] dee mg/dL 9:17 AM SAIL [facility] Specific [place] 1.020 1.003 - 12/23/2017 [facility] Urine 1.035 9:17 AM [facility] Blood Urine Small (A) NEG^Negat 12/23/2017 [place] dee 9:17 AM [facility] pH Urine 5.5 5.0 - 7.0 12/23/2017 [facility] pH 9:17 AM [facility] Protein Albumin Negative NEG^Negat 12/23/2017 [facility] Urine dee mg/dL 9:17 AM [facility] Urobilinogen 0.2 0.2 - 1.0 12/23/2017 [facility] Urine EU/dL 9:17 AM SA[facility] Nitrite Urine Negative NEG^Negat 12/23/2017 [facility] dee 9:17 AM SA[facility] Leukocyte Negative NEG^Negat 12/23/2017 [facility] Esterase Urine dee 9:17 AM SA[facility] Source Midstream 12/23/2017 [facility] Urine 9:17 AM [facility] Specimen (Source) Anatomical Collection Method Collection Time Re ceived Time Location / / Volume Laterality Examination of 12/23/2017 8:36 12/23/2017 8:37 midstream urine AM SAIL MAKER AM SAIL MAKER specimen (procedure) Iggy Nascimento MD LAB - URINE ORDERABLES Performing Organization Address City/State/ZIP Code Phon e Number [facility] [address] [place] [phone] [facility] [address] documented in this encounter Visit Diagnoses Diagnosis History of frequent urinary tract infect ions - Primary Personal history of urinary (tract) infe ction documented in this encounter Additional Health Concerns Infection Onset Date Last Indicated Resolved Time 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, 01/08/2017 9 06/08/17, 08/26/17 documented as of this encounter Care Teams Heel Seat Filler Relationship Specialty Start Date End Date Simon Claros MD PCP - General Internal Medicine 09/22/12 08/20/21 Simon Claros MD PCP - Assigned PCP 06/18/16 01/17/19 [address] [place] [place] [address] Simon Claros MD Assigned PCP 06/18/16 03/01/21 [address] [place] [address] documented as of this encounter
--- OUTSIDE RECORDS SUMMARY | 2022-08-20 14:26 | XMS_ITS | Encounter Summary ---
:1945 Author Organization [place] Address [facility] [place] [address] Care Team Providers Name Role Phone Simon Claros MD Primary Care Provider Simon Claros MD Unavailable Simon Claros MD Unavailable Encounter Details Date Type Department Care Team Description 11/24/2017 [facility] Dysuria Laboratory [address] [place], [place] [address] Social History Tobacco Use Types Packs/Day Years [...] Description 10/26/2022 Lab Oncology Yris Perez MD [address] [place] [address] (Wo rk) 11/03/2022 Oncology Visit Oncology Yris Perez MD [address] [place] [address] (Wo rk) documented as of this encounter Procedures Procedure Name Priority Date/Time Associated Comments Diagnosis URINE MACROSCOPIC Routine 11/24/2017 3:57 PM Dysuria Resu lts for this ONLY [facility] procedure are i n the results section. URINE CULTURE Routine 11/24/2017 3:57 PM Dysuria Results for this [facility] procedure are i n the results section. documented in this encounter Results Urine Culture Aerobic Bacterial [[id number]] (11/24/2017 3:57 PM [facility]) [facility] Method Time Signature Specimen Midstream INFECTIOUS Description Urine DISEASE DIAGNOSTIC LABORATORY Culture Micro 10,000 to 50,000 colonies/mL 018 INFECTIOUS mixed urogenital robert 2:13 PM [facility] Specimen (Source) Anatomical Collection Method Collection Time Re ceived Time Location / / Volume Laterality Examination of 11/24/2017 3:57 11/24/2017 3:58 midstream urine PM [facility] PM [facility] specimen (procedure) Iggy Dodd MD LAB - MICRO GENERAL ORDERABL ES Performing Organization Address City/State/ZIP Code Phon e Number INFECTIOUS DISEASES [address] [place] [address] DIAGNOSTIC LABORATORY, [facility] INFECTIOUS DISEASE [address] [place] [address], [facility] DIAGNOSTIC LABORATORY (ABNORMAL) UA without Microscopic [[id number]] (11/24/2017 3:57 PM [facility]) Patholo gist Method Time Signature Color Urine Yellow 11/24/2017 [facility] 4:19 PM [facility] [place] Appearance Urine Cloudy 11/24/2017 [facility] 4:19 PM [facility] [place] Glucose Urine Negative NEG^Negat 11/24/2017 [facility] dee mg/dL 4:19 PM [facility] [place] Bilirubin Urine Negative NEG^Negat 11/24/2017 [facility] dee 4:19 PM [facility] [place] Ketones Urine Trace (A) NEG^Negat 11/24/2017 [facility] dee mg/dL 4:19 PM [facility] [place] Specific [place] 1.020 1.003 - 11/24/2017 [facility] Urine 1.035 4:19 PM [facility] [place] Blood Urine Moderate (A) NEG^Negat 11/24/2017 [facility] dee 4:19 PM [facility] [place] pH Urine 6.0 5.0 - 7.0 11/24/2017 [facility] pH 4:19 PM [facility] [place] Protein Albumin 30 (A) NEG^Negat 11/24/2017 [facility] Urine dee mg/dL 4:19 PM [facility] [place] Urobilinogen 0.2 0.2 - 1.0 11/24/2017 [facility] Urine EU/dL 4:19 PM [facility] Nitrite Urine Positive (A) NEG^Negat 11/24/2017 [facility] dee 4:19 PM [facility] Leukocyte Large (A) NEG^Negat 11/24/2017 [place] Esterase Urine dee 4:19 PM [facility]LO[facility] Source Midstream 11/24/2017 [facility] Urine 4:19 PM [facility] Specimen (Source) Anatomical Collection Method Collection Time Re ceived Time Location / / Volume Laterality Examination of 11/24/2017 3:57 11/24/2017 3:58 midstream urine PM [facility] PM [facility] specimen (procedure) Iggy Dodd MD LAB - URINE ORDERABLES Performing Organization Address City/State/ZIP Code Phon e Number [facility] [address] [place], [place] [id number] documented in this encounter Visit Diagnoses Diagnosis Dysuria documented in this encounter Additional Health Concerns Infection Onset Date Last Indicated Resolved Time 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, 01/08/2017 9 06/08/17, 08/26/17 documented as of this encounter Care Teams Perfume And Toilet Water Maker Relationship Specialty Start Date End Date Simon Claros MD PCP - General Internal Medicine 09/22/12 08/20/21 Simon Claros MD PCP - Assigned PCP 06/18/16 01/17/19 [address] [place] [place] [address] Simon Claros MD Assigned PCP 06/18/16 03/01/21 [address] [place] [place] [address] documented as of this encounter
--- OUTSIDE RECORDS SUMMARY | 2022-08-20 14:26 | XMS_ITS | Encounter Summary ---
:1945 Author Organization [place] Address [address] [facility] [place] [address] Care Team Providers Name Role Phone Simon Claros MD Primary Care Provider Simon Claros MD Unavailable Simon Claros MD Unavailable Reason for Visit Reason Comments Medication Refill Proair Encounter Details Date Type Department Care Team Description 04/20/2018 Refill [facility] Simon Claros MD Medication Refill [place] [address] (Proair) [address] [address] [place], [place] [phone] (Wo rk) [address] Social History Tobacco Use Types Packs/Day Years Used Date Passive Smoke Exposure - Never Smoker Smokeless Tobacco: Never Used Alcohol Use Standard Drinks/Week Comments No 0 (1 standard drink = 0.6 oz pure alcoho l) Sex Assigned at Date Recorded Female 01/27/2022 12:36 PM CDT documented as of this encounter Miscellaneous Notes Telephone Encounter - Kezia Villalpando RN - 04/21/2018 11:57 AM CDT Routing refill request to provider for review/approval because: Medication is reported/historical, Please approve if appropriate Kezia Villalpando RN Telephone Encounter - Shirley De Santiago CMA - 04/20/2018 12:38 PM CDT albuterol (PROAIR HFA/PROVENTIL HFA/VENTOLIN HFA) 108 (90 BASE) MCG/ACT Inhaler Last Written Prescription Date: uncertain Last Fill Quantity: ?, # refills: ? Last office visit: 02/28/2018 with prescribing provider: alexandro Future Office Visit: none Requested Prescriptions Pending Prescriptions Disp Refills ??? PROAIR HFA 108 (90 Base) MCG/ACT inhaler [Pharmacy Med Name: PROAIR HFA 90 MCG INHALER] 8.5 Inhaler 1 Sig: INHALE 2 PUFFS 4 TIMES A DAY NEEDED Asthma Maintenance Inhalers - Anticholinergics Passed 04/20/2018 8:40 AM Passed - Patient is age 12 years or older Passed - Recent (12 mo) or future (30 days) visit within the authorizing provider's specialty Patient had office visit in the last 12 months or has a visit in the next 30 days with authorizing provider or within the authorizing provider's specialty. See Patient Info tab in inbasket, or Choose Columns in Meds & Orders section of the refill encounter. No flowsheet data found. documented in this encounter Plan of Treatment Upcoming Encounters Date Type Specialty Care Team Description 10/26/2022 Lab Oncology Yris Perez MD [address] [place] [phone] (Wo rk) 11/03/2022 Oncology Visit Oncology Yris Perez MD [address] [phone] (Wo rk) documented as of this encounter Visit Diagnoses Diagnosis Chronic obstructive pulmonary disease, u nspecified COPD type (H) - Primary documented in this encounter Additional Health Concerns Infection Onset Date Last Indicated Resolved Time 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, 01/08/2017 9 06/08/17, 08/26/17 documented as of this encounter Care Teams Twisting Frame Changer Relationship Specialty Start Date End Date Simon Claros MD PCP - General Internal Medicine 09/22/12 08/20/21 Simon Claros MD PCP - Assigned PCP 06/18/16 01/17/19 [address] [place] [place] [address] Simon Claros MD Assigned PCP 06/18/16 03/01/21 [address] [place] [address] documented as of this encounter
--- OUTSIDE RECORDS SUMMARY | 2022-08-20 14:26 | XMS_ITS | Encounter Summary ---
:1945 Author Organization [place] Address [address] [facility] [place] [address] Care Team Providers Name Role Phone Smion Claros MD Primary Care Provider Simon Claros MD Unavailable Simon Claros MD Unavailable Reason for Visit Reason Comments Medication Refill Proair Encounter Details Date Type Department Care Team Description 04/22/2018 Refill [facility] Simon Claros MD Medication Refill [place] [address] (Proair) [address] [address] [place], [place] [phone] (Wo rk) [address] Social History Tobacco Use Types Packs/Day Years Used Date Passive Smoke Exposure - Never Smoker Smokeless Tobacco: Never Used Alcohol Use Standard Drinks/Week Comments No 0 (1 standard drink = 0.6 oz pure alcoho l) Sex Assigned at Date Recorded Female 01/27/2022 12:36 PM CDT documented as of this encounter Miscellaneous Notes Telephone Encounter - Keely Bowman RN - 04/22/2018 9:[address] Claros already ordered this inhaler but [facility] so I gave them a verbal read for theRX. Keely Bowman RN Telephone Encounter - Shirley De Santiago CMA - 04/22/2018 9:30 AM CDT PROAIR HFA 108 (90 Base) MCG/ACT inhaler 8.5 Inhaler 5 04/22/2018 Last Written Prescription Date: 04/22/18 Last Fill Quantity: 8.5, # refills: 5 Last office visit: 02/28/2018 with prescribing provider: Hyacinth Future Office Visit: none Requested Prescriptions Pending Prescriptions Disp Refills ??? PROAIR HFA 108 (90 Base) MCG/ACT inhaler [Pharmacy Med Name: PROAIR HFA 90 MCG INHALER] 8.5 Inhaler 1 Sig: INHALE 2 PUFFS 4 TIMES A DAY NEEDED Asthma Maintenance Inhalers - Anticholinergics Passed 04/22/2018 9:14 AM Passed - Patient is age 14 [...] 10/26/2022 Lab Oncology Yris Perez MD [address] [phone] (Wo rk) 11/03/2022 Oncology Visit Oncology Yris Perez MD [address] [phone] (Wo rk) documented as of this encounter Visit Diagnoses Diagnosis Chronic obstructive pulmonary disease, u nspecified COPD type (H) documented in this encounter Additional Health Concerns Infection Onset Date Last Indicated Resolved Time 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, 01/08/2017 9 06/08/17, 08/26/17 documented as of this encounter Care Teams Night Worker Relationship Specialty Start Date End Date Simon Claros MD PCP - General Internal Medicine 09/22/12 08/20/21 Simon Claros MD PCP - Assigned PCP 06/18/16 01/17/19 [address] [place] [place] [address] Simon Claros MD Assigned PCP 06/18/16 03/01/21 [address] [place] [address] documented as of this encounter
--- OUTSIDE RECORDS SUMMARY | 2022-08-20 14:26 | XMS_ITS | Encounter Summary ---
:1945 Author Organization [place] Address [address] [facility] [place] [address] Care Team Providers Name Role Phone Simon Claros MD Primary Care Provider Simon Claros MD Unavailable Simon Claros MD Unavailable Encounter Details Date Type Department Care Team Description 12/09/2017 [facility] Urology Iggy Dodd MD [address] [facility] [address] [place] [address] [place] [address] [phone] Social History Tobacco Use Types Packs/Day Years [...] 10/26/2022 Lab Oncology Yris Perez MD [address] [address] (Madeleine proctor) 11/03/2022 Oncology Visit Oncology Yris Perez MD [address] [address] (Madeleine proctor) documented as of this encounter Visit Diagnoses Not on filedocumented in this encounter Additional Health Concerns Infection Onset Date Last Indicated Resolved Time 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, 01/08/2017 9 06/08/17, 08/26/17 documented as of this encounter Care Teams Supervisor Drying And Winding Relationship Specialty Start Date End Date Simon Claros MD PCP - General Internal Medicine 09/22/12 08/20/21 Simon Claros MD PCP - Assigned PCP 06/18/16 01/17/19 [address] [place] [address] [place] [address] Simon Claros MD Assigned PCP 06/18/16 03/01/21 [address] [place] [place] [address] documented as of this encounter
--- OUTSIDE RECORDS SUMMARY | 2022-08-20 14:26 | XMS_ITS | Encounter Summary ---
:1945 Author Organization [facility] Address [address] [facility] [place] [address] Care Team Providers Name Role Phone Simon Claros MD Primary Care Provider Simon Claros MD Unavailable Simon Claros MD Unavailable Reason for Visit (Routine) - Closed Specialty Diagnoses / Procedures Referred By Contact Refer red To Contact Radiology / Radiology. Diagnoses Written orders Sh [facility] Procedures DX HIP/PELVIS/SPINE [address] [place] [address] [address] [place] [address] Phone: Fax: Referral ID Status Reason Start Date Expiration Date Visits Requ ested Visits Authorized [id number] Closed 12/27/2017 12/27/2018 1 1 Encounter Details Date Type Department Care Team Description 01/27/2018 Hospital Encounter [facility] Aaron Garcia (Other) Rocco Santana MD [address] [address] [place] [phone] Social History Tobacco Use Types Packs/Day Years [...] Description 10/26/2022 Lab Oncology Yris Perez MD [address] [place] [address] (Wo rk) 11/03/2022 Oncology Visit Oncology Yris Perez MD [address] [place] [address] (Wo rk) documented as of this encounter Visit Diagnoses Not on filedocumented in this encounter Additional Health Concerns Infection Onset Date Last Indicated Resolved Time 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, 01/08/2017 9 06/08/17, 08/26/17 documented as of this encounter Care Teams Glue Jointer Operator Relationship Specialty Start Date End Date Simon Claros MD PCP - General Internal Medicine 09/22/12 08/20/21 Simon Claros MD PCP - Assigned PCP 06/18/16 01/17/19 [address] [place] [address] Simon Claros MD Assigned PCP 06/18/16 03/01/21 [address] [place] [address] documented as of this encounter
--- OUTSIDE RECORDS SUMMARY | 2022-08-20 14:26 | XMS_ITS | Encounter Summary ---
:1945 Author Organization [place] Address [address] [facility] [place] [address] Care Team Providers Name Role Phone Simon Claros MD Primary Care Provider Simon Claros MD Unavailable Simon Claros MD Unavailable Reason for Visit Auth/Cert Specialty Diagnoses / Procedures Referred By Contact Refer red To Contact Surgery Diagnoses Uti;s Rh Periop Services Procedures CYSTOSCOPY [address] [place], [place] [address] Phone: Fax: Referral ID Status Reason Start Date Expiration Date Visits Requ ested Visits Authorized [id number] 1 1 Encounter Details Date Type Department Care Team Description 12/09/2017 Hospital Encounter [facility] Jones Nascimento ersonal history of [place] PreOP/PostOP MD Janelle urinary tract [address] [facility] [address] infection [place], [place] [address] [address] [place], [place] [phone] [address] Social History Tobacco Use Types Packs/Day Years Used Date Passive Smoke Exposure - Never Smoker Smokeless Tobacco: Never Used Alcohol Use Standard Drinks/Week Comments No 0 (1 standard drink = 0.6 oz pure alcoho l) Sex Assigned at Date Recorded Female 01/27/2022 12:36 PM CDT documented as of this encounter Last Filed Vital Signs Vital Sign Reading Time Taken Comments Blood Pressure 152/93 12/09/2017 3:58 PM LATHE MECHANIC Pulse 80 12/09/2017 2:25 PM LATHE MECHANIC Temperature 36.4 ??C (97.6 ??F) 12/09/2017 3:58 PM LATHE MECHANIC Respiratory Rate 16 12/09/2017 3:58 PM LATHE MECHANIC Oxygen Saturation 98% 12/09/2017 3:58 PM LATHE MECHANIC Inhaled Oxygen Concentration - - Weight 66.2 kg (146 lb) 12/09/2017 11:34 AM LATHE MECHANIC Height 167.6 cm (5' 6) 12/09/2017 11:34 AM LATHE MECHANIC Body Mass Index 23.57 12/09/2017 11:34 AM LATHE MECHANIC documented in this encounter Discharge Instructions Discharge InstructionsLucrecia Ortiz RN - 12/09/2017 2:54 PM CST CYSTOSCOPY DISCHARGE INSTRUCTIONS [facility] / UROLOGY [facility] [phone] YOU MAY GO BACK TO YOUR NORMAL DIET AND ACTIVITY, UNLESS YOUR DOCTOR TELLS YOU NOT TO. FOR THE NEXT TWO DAYS, YOU MAY NOTICE: SOME BLOOD IN YOUR URINE. SOME BURNING WHEN YOU URINATE (USE THE TOILET). AN URGE TO URINATE MORE OFTEN. BLADDER SPASMS. THESE ARE NORMAL AFTER THE PROCEDURE. THEY SHOULD GO AWAY AFTER A DAY OR TWO. TO RELIEVE THESE PROBLEMS: DRINK 6 TO 8 LARGE GLASSES OF WATER EACH DAY (INCLUDES DRINKS AT MEALS). THIS WILL HELP CLEAR THE URINE. TAKE WARM BATHS TO RELIEVE PAIN AND BLADDER SPASMS. DO NOT ADD ANYTHING TO THE BATH WATER. YOUR DOCTOR MAY PRESCRIBE PAIN MEDICINE. YOU MAY ALSO TAKE TYLENOL (ACETAMINOPHEN) FOR PAIN. CALL YOUR SURGEON IF YOU HAVE: A FEVER OVER 101 DEGREES. CHECK YOUR TEMPERATURE UNDER YOUR TONGUE. CHILLS. FAILURE TO URINATE (NO URINE COMES OUT WHEN YOU TRY TO USE THE TOILET). TRY SOAKING IN A BATHTUB FULL OF WARM WATER. IF STILL NO URINE, CALL YOUR DOCTOR. A LOT OF BLOOD IN THE URINE, OR BLOOD CLOTS LARGER THAN A NICKEL. PAIN IN THE BACK OR BELLY AREA (ABDOMEN). PAIN OR SPASMS THAT ARE NOT RELIEVED BY WARM TUB BATHS AND PAIN MEDICINE. SEVERE PAIN, BURNING OR OTHER PROBLEMS WHILE PASSING URINE. PAIN THAT GETS WORSE AFTER TWO DAYS. GENERAL ANESTHESIA OR SEDATION ADULT DISCHARGE INSTRUCTIONS SPECIAL PRECAUTIONS FOR 24 HOURS AFTER SURGERY IT IS NOT UNUSUAL TO FEEL LIGHT-HEADED OR FAINT, UP TO 24 HOURS AFTER SURGERY OR WHILE TAKING PAIN MEDICATION. IF YOU HAVE THESE SYMPTOMS; SIT FOR A FEW MINUTES BEFORE STANDING AND HAVE SOMEONE ASSIST YOU WHEN YOU GET UP TO WALK OR USE THE BATHROOM. YOU SHOULD REST AND RELAX FOR THE NEXT 24 HOURS AND YOU MUST MAKE ARRANGEMENTS TO HAVE SOMEONE STAY WITH YOU FOR AT LEAST 24 HOURS AFTER YOUR DISCHARGE. AVOID HAZARDOUS AND STRENUOUS ACTIVITIES. DO NOTMAKE IMPORTANT DECISIONS FOR [address] ANY VEHICLE OR OPERATE MECHANICAL EQUIPMENT FOR 24 HOURS FOLLOWING THE END OF YOUR SURGERY. EVEN THOUGH YOU MAY FEEL NORMAL, YOUR REACTIONS MAY BE AFFECTED BY THE MEDICATION YOU HAVE RECEIVED. DO NOT DRINK ALCOHOLIC BEVERAGES FOR 24 HOURS FOLLOWING YOUR SURGERY. DRINK CLEAR LIQUIDS (APPLE JUICE, BERNIE TAN, 7-UP, BROTH, ETC.). PROGRESS TO YOUR REGULAR DIET YOU FEEL ABLE. YOU MAY HAVE A DRY MOUTH, A SORE THROAT, MUSCLES ACHES OR TROUBLE SLEEPING. THESE SHOULD GO AWAY AFTER 24 HOURS. CALL YOUR DOCTOR FOR ANY OF THE FOLLOWING: SIGNS OF INFECTION (FEVER, GROWING TENDERNESS AT THE SURGERY SITE, A LARGE AMOUNT OF DRAINAGE OR BLEEDING, SEVERE PAIN, FOUL-SMELLING DRAINAGE, REDNESS OR SWELLING. IT HAS BEEN OVER 8 TO 10 HOURS SINCE SURGERY AND YOU ARE STILL NOT ABLE TO URINATE (PASS WATER). E MECHANIC documented in this encounter Medications at Time of Discharge Medication Sig Dispensed Refills Start Date End Date Cholecalciferol (VITAMIN Take 2,000 Units by 0 D3 PO) mouth daily loratadine (CLARITIN) 10 Take 10 mg by mouth 0 MG tablet albuterol (PROAIR Inhale 2-4 puffs 0 0 04/20/2018 HFA/PROVENTIL into the lungs as HFA/VENTOLIN HFA) 108 (90 needed BASE) MCG/ACT Inhaler ANASTROZOLE PO Take 1 mg by mouth 0 daily ciprofloxacin (CIPRO) 250 Take 1 tablet (250 2 tablet 0 01/27/2018 MG tabletIndications: mg) by mouth every Personal history of 12 hours urinary tract infection phenazopyridine Take 1 tablet (200 15 tablet 1 12/09/2017 0 01/27/2018 (PYRIDIUM) 200 MG mg) by mouth 3 times tabletIndications: daily as needed for Personal history of irritation urinary tract infection documented as of this encounter Progress Notes Ion Leavitt - 12/09/2017 12:32 PM CST [facility] Progress Note [facility] Pre-surgical visit per request for hotel administrative assistant support prior to surgery. Met with pt, Darell, and her spouse, Angelo and they shared worries and hopes for surgery. They identify as Taoist and notes that Joe is my Lord and Savior. They then invited prayer and we shared in prayer together. Oriented family howto request hotel administrative assistant support if hospitalization is required post surgery. Otherwise no other needs expressed. Naun Oleary. Staff Postdoctoral Scientist Pager #[phone] E MECHANIC documented in this encounter H&P Notes Indu Galicia - 12/08/2017 10:57 AM CST This note is for the purpose of making the H&P performed in clinic within the last 30 days available in the hospital surgical encounter. E MECHANIC Source Note - Simon Claros MD - 12/03/2017 12:41 PM LATHE MECHANIC [address] [address] Dept: [phone] PRE-OP EVALUATION: Today's date: 12/06/2017 Darell Jackson (: 1945) presents for pre-operative evaluation assessment as requested by Jones Simpson MD. She requires evaluation and anesthesia risk assessment prior to undergoing surgery/procedure for treatment of CYSTOSCOPY . Proposed procedure: Video Cystoscopy Rigid and Flexible Date of Surgery/ Procedure: 12/09/17 Time of Surgery/ Procedure: 1250pm Hospital/Surgical Facility: [facility] Primary Physician: Simon Claros Type of Anesthesia [...] Alejo Aburto MD; Location: [facility] ??? TRASH HAULER SURGERY hysterectomy ??? LUMPECTOMY BREAST WITH SEED [...] his/her behalf by Megan Cannon, a trained senior medical billing specialist. The creation of this document is based the provider's statements to the senior medical billing specialist. Meg Cannon 9:22 AM, December 06, 2017 [...] cardiovascular risks for perioperative complications such as ([place], PE, VFib and 3?? AV Block): No [...] information in this document, created by the senior medical billing specialist for me, accurately reflects the services I personally performed and the decisions made by me. I have reviewed and approved this document for accuracy prior to leaving the patient care area. Simon Claros MD 11:10 AM, 12/06/17 Copy of this evaluation report is provided to requesting physician. [place] Preop Guidelines E MECHANIC documented in this encounter Miscellaneous Notes Op Note - Jones Nascimento MD - 12/09/2017 2:54 PM CST Procedure Date: 12/09/2017 DATE OF PROCEDURE: 12/09/2017 DATE OF DICTATION: 12/09/2017 PREOPERATIVE DIAGNOSIS: Recurrent urinary tract infections. POSTOPERATIVE DIAGNOSIS: Recurrent urinary tract infections. PROCEDURES: EUA, video cystopanendoscopy, flexible cystoscopy, right retrograde ureteropyelogram, cystogram, vaginoscopy. SURGEON: Jones Nascimento Jr., MD ANESTHESIA: General laryngeal mask. ESTIMATED BLOOD LOSS: Zero mL. INDICATIONS: The patient is a 72-year-old female who has had recurrent E. 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 The diverticulum is posterior and lateral. Office flexible cystoscopy did not reveal a mouth to the diverticulum. She now presents for exam under anesthesia and it is felt that this diverticulum may represent a source of her infections. PROCEDURE: The patient received 2 grams of IV Ancef on-call and was taken to the operating suite andplaced supine on the cystoscopy table. After adequate general laryngeal mask anesthesia, she was placed in lithotomy position and her genitalia were prepped and draped in a sterile fashion. A #22 [place] Storz cystoscope with obturator was gently introduced in the bladder and residual urine was clear. Using the 30 and 70 degree lenses, the bladder was carefully examined and revealed normal mucosa and no diverticulum or diverticular mouth. Using the 30 degree lens, the urethra was examined and revealed no diverticular opening either. I then did a retrograde of both ureters on the right side revealingno diverticulum off either ureter. I then used a flexible cystoscope to look for a diverticular mouth and found no opening. I then placed a 20 Venezuelan Fang catheter with 5 mL in the balloon and did a gravity cystogram which did not demonstrate the diverticulum as it had on the CT scan. I then performed vaginoscopy to be sure there was nothing off the vagina or vaginal cuff and this was normal. The bladder was emptied and the Fang catheter removed. The patient went to the recovery room in stable condition and will be discharged on Pyridium 200 mg t.i.d. for the next 5 days, Cipro 250 mg every 12 hours x2 doses. She will also be given prescriptions for 0.1% Estrace vaginal cream to be used nightly for the next 2 weeks and then 3 times a week at a dose of 1 gram. She will also be given a prescription for Macrobid 100 mg to use for self-administration. The films will be reviewed with our female urology colleagues to see if they have any other suggestions. JONES NASCIMENTO JR, MD MT: Name: DARELL JACKSON Account: [id number] : 1945 Procedure Date: 12/09/2017 Document: [id number] cc: Simon Claros MD E MECHANIC Brief Op Note - Jones Nascimento MD - 12/09/2017 2:24 PM CST [facility] Brief Operative Note Pre-operative diagnosis: UTIs Post-operative diagnosis recurrent UTIs Procedure: Procedure(s): Video Cystoscopy Rigid and Flexible, right retrogrades, cystogram, vaginoscopy - Wound Class: II-Clean Contaminated Surgeon(s): Surgeon(s) and Role: Jones Nascimento MD - Primary Estimated blood loss: 0cc Specimens: none Findings: E MECHANIC documented in this encounter Plan of Treatment Upcoming Encounters Date Type Specialty Care Team Description 10/26/2022 Lab Oncology Yris Perez MD [address] [facility] [address] [place], [place] [address] (Wo rk) 11/03/2022 Oncology Visit Oncology Yris Perez MD [address] [phone] (Wo rk) documented as of this encounter Procedures Procedure Name Priority Date/Time Associated Comments Diagnosis XR SURGERY JAYY Routine 12/09/2017 2:19 PM Result s for this FLUORO LESS THAN 5 LATHE MECHANIC procedure are in MIN W STILLS the results section. CYSTOSCOPY 12/09/2017 1:10 PM recurrent UTIs LATHE MECHANIC Special Needs 5'6 ; 147 lb documented in this encounter Results XR Surgery JAYY L/T 5 Min Fluoro w Stills (12/09/2017 2:19 PM LATHE MECHANIC) Specimen (Source) Anatomical Location Collection Method / Collectio n Time Received Time / Laterality Volume Narrative RADIANT - 12/09/2017 2:19 PM LATHE MECHANIC This exam was marked as non-reportable because it will not be read by a radiologist or a [place] non-radiologis t provider. Jones Nascimento MD IMG DIAGNOSTIC IMAGING ORDER [place] Performing Organization Address City/State/ZIP Code Phon e Number RADIANT documented in this encounter Visit Diagnoses Diagnosis Personal history of urinary tract infect ion Personal history of urinary (tract) infe ction documented in this encounter Administered Medications documented in this encounter Active and Recently Administered Medications Times are shown in LATHE MECHANIC. Scheduled Medication Order 12/07/2017 12/08/2017 12/09/2017 ceFAZolin (ANCEF) intermittent infusion 2 g in 100 mL dextrose PRE-MIX (COMPLETED) 1318 (Given - Provid er: Fatemeh Goel APRN CRNA) 2 g, Intravenous, PRE-OP/PRE-PROCEDURE, Starting Louann 12/09/17 at 1133, For 1 dose, Give first dose within 1 hour PRIOR to incision. If patient weight is greater than or equal to 120 kg increase dose to 3 g., Indications: Perioperative Pharmacoprophylaxis, Pre-procedu re Continuous Medication Order 12/07/2017 12/08/2017 12/09/2017 lactated ringers infusion (CANCELED) 1318 (New Bag - Provider: Fatemeh Goel APRN CRNA)1408 (New Bag - Provider: Fatemeh Goel APRN CRNA)1421 (Anesthesia Volume Adjustment - Provider: Fatemeh Goel APRN CRNA) at 25 mL/hr, Intravenous, CONTINUOUS, IF patient NOT on dialysis., Pre- procedure, Starting Louann 12/09/17 at 1145, Until Louann 12/09/17 at 1434 PRN Medication Order 12/07/2017 12/08/2017 12/09/2017 iopamidol 61% (ISOVUE 300) 50 mL + steri le water for irrigation 50 mL (CANCELED) 1356 (Given - Provid er: Jones Nascimento MD - Comment: used for pyelograms)1409 (Given - Provider: Jones Nascimento MD - Comment: used for a cystogram) 20 ml given, PRN, Starting Louann 12/09/17 at 1342, Intra-procedure naloxone (NARCAN) injection 0.1-0.4 mg 0.1-0.4 mg, Intravenous, EVERY 2 MIN PRN , opioid reversal, Starting Louann 12/09/17 at 1433, For 24 hours, For apnea or imminent respiratory arrest: give 0.4 mg IV undiluted Q 2 minutes PRN until desired de gree of reversal is obtained, stop opioi d and notify provider. Continue monitoring until discharge criteria are met for a minimum of 2 hours. For severe sedation, decrease in respiratory depth, quality or respiratory rate less than 8: give 0. 1 mg IV Q 2 minutes x 3 doses, stop opioid and notify provider. Try to minimize reversal of analgesia especially in end-of-life patients For ordered doses up to 2 mg give IVP. Give each 0.4mg over 15 sec onds in emergency situations. For non- emergent situations further dilute in 9mL of NS to facilitate titration of response., Post-procedure sterile water (bottle) irrigation (CANCELED) 1415 (Given - Provider: Jones Nascimento MD) PRN, Intra-procedure, Starting Louann 12/09/17 at 1407, Until Louann at 1537 documented in this encounter Additional Health Concerns Infection Onset Date Last Indicated Resolved Time 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, 01/08/2017 9 06/08/17, 08/26/17 documented as of this encounter Care Teams Supervisor Food Checkers And Cashiers Relationship Specialty Start Date End Date Simon Claros MD PCP - General Internal Medicine 09/22/12 08/20/21 Simon Claros MD PCP - Assigned PCP 06/18/16 01/17/19 [address] [place] [address] Simon Claros MD Assigned PCP 06/18/16 03/01/21 [address] [place] [address] documented as of this encounter
--- OUTSIDE RECORDS SUMMARY | 2022-08-20 14:26 | XMS_ITS | Encounter Summary ---
:1945 Author Organization [place] Address [address] [facility] [place] [address] Care Team Providers Name Role Phone Simon Claros MD Primary Care Provider Simon Claros MD Unavailable Simon Claros MD Unavailable Encounter Details Date Type Department Care Team Description 08/31/2018 [facility] Aaron Garcia Cancer of central portion of right breast (H) (Primary Dx); [facility] MD Max Breast cancer (H) [address] [facility] [address] [place] [address] Social History Tobacco Use Types Packs/Day Years [...] 10/26/2022 Lab Oncology Yris Perez MD [address] [place] [address] (Wo rk) 11/03/2022 Oncology Visit Oncology Yris Perez MD [address] [place] [address] (Wo rk) documented as of this encounter Visit Diagnoses Diagnosis Cancer of central portion of right breas t (H) - Primary documented in this encounter Additional Health Concerns Infection Onset Date Last Indicated Resolved Time 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, 01/08/2017 9 06/08/17, 08/26/17 documented as of this encounter Care Teams Core Dropper Relationship Specialty Start Date End Date Simon Claros MD PCP - General Internal Medicine 09/22/12 08/20/21 Simon Claros MD PCP - Assigned PCP 06/18/16 01/17/19 [address] [place] [address] Simon Claros MD Assigned PCP 06/18/16 03/01/21 [address] [place] [address] documented as of this encounter
--- OUTSIDE RECORDS SUMMARY | 2022-08-20 14:26 | XMS_ITS | Encounter Summary ---
:1945 Author Organization [place] Address [address] [facility] [place] [address] Care Team Providers Name Role Phone Simon Claros MD Primary Care Provider Simon Claros MD Unavailable Simon Claros MD Unavailable Reason for Visit Reason Onset Date Comments Call To Schedule Appointment 02/10/2018 We have ord ers please schedule DEXA Encounter Details Date Type Department Care Team Description 02/10/2018 Telephone [facility] Simon Claros, Call T o Schedule Clinic Paulo HINES Appointment (We have [address] [place] [address] [address] order s please schedule [place] [address]A) [address] [place] [phone] Social History Tobacco Use Types Packs/Day Years Used Date Passive Smoke Exposure - Never Smoker Smokeless Tobacco: Never Used Alcohol Use Standard Drinks/Week Comments No 0 (1 standard drink = 0.6 oz pure alcoho l) Sex Assigned at Date Recorded Female 01/27/2022 12:36 PM CDT documented as of this encounter Miscellaneous Notes Telephone Encounter - Starla Zurita - 02/10/2018 1:29 PM CDT We have orders please schedule DEXA documented in this encounter Plan of Treatment Upcoming Encounters Date Type Specialty Care Team Description 10/26/2022 Lab Oncology Yris Perez MD [address] [facility] [address] [place] [address] (Wo rk) 11/03/2022 Oncology Visit Oncology Yris Perez MD [address] [facility] [address] [place] [address] (Wo rk) documented as of this encounter Visit Diagnoses Not on filedocumented in this encounter Additional Health Concerns Infection Onset Date Last Indicated Resolved Time 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, 01/08/2017 9 06/08/17, 08/26/17 documented as of this encounter Care Teams Irrigation System Operator Relationship Specialty Start Date End Date Simon Claros MD PCP - General Internal Medicine 09/22/12 08/20/21 Simon Claros MD PCP - Assigned PCP 06/18/16 01/17/19 [address] [place] [address] Simon Claros MD Assigned PCP 06/18/16 03/01/21 [address] [place] [address] documented as of this encounter
--- OUTSIDE RECORDS SUMMARY | 2022-08-20 14:26 | XMS_ITS | Encounter Summary ---
:1945 Author Organization [place] Address [address] [place] [address] Care Team Providers Name Role Phone Simon Claros MD Primary Care Provider Simon Claros MD Unavailable Simon Claros MD Unavailable Reason for Visit Reason Comments Wellness Visit Fasting Encounter Details Date Type Department Care Team Description 01/27/2018 Office Visit [facility] Simon Claros, Chroni c obstructive pulmonary disease, unspecified COPD type (H) (Primary Dx); Clinic [facility] Malignant neoplasm of female breast, uns pecified estrogen receptor status, unspecified laterality, unspecified site of breast (H); [address] History o f frequent urinary tract infections; [place], [address] Atrophic vaginitis; [place] [address] [place] [place] Encounter for routine adult health examination without abnormal findings; [phone] [id number] Vitamin D deficiency; [phone] Fatigue, unspec ified type; (Work) Hyperlipidemia LDL goal <130; [phone] Acute gouty art hritis (Fax) Social History Tobacco Use Types Packs/Day Years Used Date Passive Smoke Exposure - Never Smoker Smokeless Tobacco: Never Used Alcohol Use Standard Drinks/Week Comments No 0 (1 standard drink = 0.6 oz pure alcoho l) Sex Assigned at Date Recorded Female 01/27/2022 12:36 PM CDT documented as of this encounter Last Filed Vital Signs Vital Sign Reading Time Taken Comments Blood Pressure 133/74 01/27/2018 9:05 AM CDT Pulse 69 01/27/2018 9:05 AM CDT Temperature 36.7 ??C (98 ??F) 01/27/2018 9:05 AM CDT Respiratory Rate 16 01/27/2018 9:05 AM CDT Oxygen Saturation 99% 01/27/2018 9:05 AM CDT Inhaled Oxygen Concentration - - Weight 67.6 kg (149 lb) 01/27/2018 9:05 AM CDT Height 167.6 cm (5' 6) 01/27/2018 9:05 AM CDT Body Mass Index 24.05 01/27/2018 9:05 AM CDT documented in this encounter Patient Instructions Patient Demetrice Almaraz, SILK SCREEN LAYOUT DRAFTER - 01/27/2018 8:56 AM CDT Preventive Health Recommendations Female Ages 65 + Yearly exam: ??? See your health care provider every year in order to o Review health changes. o Discuss preventive care. o Review your medicines if your doctor has [...] Prevnar (PCV 13). ??? Talk to your doctor about the shingles vaccine. ??? Talk to your doctor about the hepatitis B vaccine. Nutrition: ??? Eat at least 5 servings of fruits and vegetables each day. ??? Eat whole-grain bread, whole-wheat pasta and brown rice instead of white grains and rice. ??? Talk to your provider about Calcium and Vitamin D. Lifestyle ??? Exercise [...] such as glaucoma, macular degeneration and cataracts. documented in this encounter Progress Notes Simon Claros MD - 01/27/2018 8:56 AM CDT SUBJECTIVE: Darshana Brooks is a 72 year old female who presents for Preventive Visit. Are you in the first 12 months of your Medicare Part B coverage? No Healthy Habits: ?? Do you get at least three servings of calcium containing foods daily (dairy, green leafy vegetables, etc.)? yes ?? Amount of exercise or daily activities, outside of work: 2-3 day(s) per week-Walking ?? Problems taking medications regularly No ?? Medication side effects: No ?? Have you had an eye exam in the past two years? yes ?? Do you see a dentist twice per year? no ?? Do you have sleep apnea, excessive snoring or daytime drowsiness?no ?? Ability to successfully perform activities of daily living: Yes, no assistance needed ?? Home safety: none identified ?? Hearing impairment: No ?? Fall risk: Fallen 2 or more times in the past year?: No Any fall with injury in the past year?: No COGNITIVE SCREEN 1) Repeat 3 items (Banana, Rusk, Chair) 2) Clock draw: NORMAL 3) 3 item recall: Recalls 3 objects Results: 3 items recalled: COGNITIVE IMPAIRMENT LESS LIKELY Mini-CogTM Copyright S [employer]. Licensed by the author for use in [facility]; reprintedwith permission ([email or web address]). All rights reserved. Patient presents to the clinic for a wellness visit. She reports that prior to three weeks ago she was eating more meat than she normally does. She reports that after that she had a cramping feeling onthe lateral aspect of her right foot that was extremely painful. She reports that she couldn't put pressure on her right foot and it was tender to the touch. She reports that pain in her right foot resolved, but she reports the same symptoms have presented on the left foot and have been on going for the last week. Of note, she reports she did have increased sugar intake and is unsure if she had proper fluid intake. She has history of bladder infections and she reports she generally drinks 6-8 glass of water per day. She had a CT scan and was negative for bladder diverticulum. She is prescribed estradiol cream forher recurrent bladder infections. Patient uses albuterol inhaler PRN, in the fall and spring. Her history of cervical spine issues is well controlled as she is cautious of the activities that she is doing. She walks regularly for exercise. She has nocturia 1x. She denies any headaches, bad colds or flu, vision changes, dyspnea, angina, heartburn, acid indigestion, hematochezia, urinary issues, other musculoskeletal issues, and skin changes. Reviewed and updated as needed this visit by clinical staff Tobacco Allergies Meds Med Hx Surg Hx Fam Hx Soc Hx Reviewed and updated as needed this visit by Provider Social History Substance Use Topics ??? Smoking status: Passive Smoke Exposure - Never Smoker ??? Smokeless tobacco: Never Used ??? Alcohol use No If you drink alcohol do you typically have >3 drinks per day or >7 drinks per week? No Today's PHQ-2 Score: PHQ-2 (??1999 Pfizer) 01/27/2018 12/06/2017 Q1: Little interest or pleasure in doing things 0 0 Q2: Feeling down, depressed or hopeless 0 0 PHQ-2 Score 0 0 Do you feel safe in your environment - Yes Do you have a Health Care Directive?: Yes: Advance Directive has been received and scanned. Current providers sharing in care for this patient include: Patient Care Team: Simon Claros MD as PCP - General (Internal Medicine) The following health maintenance items are reviewed in Epic and correct as of today: Health Maintenance Topic Date Due ??? COPD ACTION PLAN Q1 YR 1945 ??? HEPATITIS C SCREENING 1963 ??? INFLUENZA VACCINE (SYSTEM ASSIGNED) 07/16/2018 ??? FALL RISK ASSESSMENT 09/07/2018 ??? MAMMO SCREEN Q2 YR (SYSTEM ASSIGNED) 01/25/2019 ??? TETANUS IMMUNIZATION (SYSTEM ASSIGNED) 02/11/2019 ??? ADVANCE DIRECTIVE PLANNING Q5 YRS 06/02/2021 ??? LIPID SCREEN Q5 YR FEMALE (SYSTEM ASSIGNED) 01/05/2022 ??? COLON CANCER SCREEN (SYSTEM ASSIGNED) 06/03/2027 ??? SPIROMETRY ONETIME Completed ??? DEXA SCAN SCREENING (SYSTEM ASSIGNED) Completed ??? PNEUMOCOCCAL Completed Current Outpatient Prescriptions Medication Sig Dispense Refill ??? ESTRADIOL PO ??? POLYETH GLYC-PROPYLENE GLYC NA ??? ANASTROZOLE PO Take 1 mg by mouth daily ??? albuterol (PROAIR HFA/PROVENTIL HFA/VENTOLIN HFA) 108 (90 BASE) MCG/ACT Inhaler Inhale 2-4 puffsinto the lungs as needed ??? loratadine (CLARITIN) 10 MG tablet Take 10 mg by mouth ??? Cholecalciferol (VITAMIN D3 PO) Take 2,000 Units by mouth daily Allergies Allergen Reactions ??? Other [No Clinical Screening - See Comments] PN: LW Other1: -latex:nasal congestion, eyes watering. LW Other2: -canteloupe, horses, cats, dust, molds, trees ??? Sulfamethoxazole Heartburn ??? Chlorhexidine Gluconate [Chlorhexidine] Rash ??? Latex Rash Other reaction(s): Other, see comments PN: sneezing, runny nose, ROS: CONSTITUTIONAL: NEGATIVE for fever, chills, change in [...] MUSCULOSKELETAL: NEGATIVE for significant arthralgias or myalgia NEURO: NEGATIVE for weakness, dizziness or paresthesias ENDOCRINE: NEGATIVE for temperature intolerance, skin/hair changes HEME: NEGATIVE for bleeding problems PSYCHIATRIC: NEGATIVE for changes in mood or affect This document serves as a record of the services and decisions personally performed and made by GaryL. Hyacinth MD. It was created on his/her behalf by Megan Cannon, a trained medical supply technician. The creation of this document is based the provider's statements to the medical supply technician. Scribe Megan Cannon 9:18 AM, January 27, 2018 OBJECTIVE: BP 133/74 (BP Location: Left arm, Patient Position: Chair, Cuff Size: Adult Regular) Pulse 69 Temp 98 ??F (36.7 ??C) (Oral) Resp 16 Ht 5' 6 (1.676 m) Wt 149 lb (67.6 kg) SpO2 99% BMI 24.05 kg/m2 Estimated body mass index is 24.05 kg/(m^2) as calculated from the following: Height as of this encounter: 5' 6 (1.676 m). Weight as of this encounter: 149 lb (67.6 kg). EXAM: GENERAL APPEARANCE: healthy, alert and no distress [...] no palpable axillary masses or adenopathy, right axillary scar was non tender without any associated masses CV: regular rate and rhythm, normal S1 S2, no S3 or S4, no murmur, click or rub, no peripheral edemaand peripheral pulses strong ABDOMEN: soft, nontender, no hepatosplenomegaly, no masses and bowel sounds normal MS: no musculoskeletal defects are noted and gait is age appropriate without ataxia, the proximal last two metatarsals on the left foot greater than the right were tender no soft tissue swelling or erythema SKIN: no suspicious lesions or rashes, she has a very occasional seborrheic keratosis NEURO: Normal strength and tone, sensory exam grossly normal, mentation intact and speech normal PSYCH: mentation appears normal and affect normal/bright ASSESSMENT / PLAN: 1. Chronic obstructive pulmonary disease, unspecified COPD type (H) -Will follow closely as seasons change, recommend she use her rescue inhaler PRN. - Spirometry, Breathing Capacity; Future - Spirometry, Breathing Capacity 2. Malignant neoplasm of female breast, unspecified estrogen receptor status, unspecified laterality, unspecified site of breast (H) - CBC with platelets - Comprehensive metabolic panel 3. History of frequent urinary tract infections - UA reflex to Microscopic and Culture 4. Atrophic vaginitis -Well managed with current therapies. 5. Encounter for routine adult health examination without abnormal findings - UA reflex to Microscopic and Culture - CBC with platelets - Comprehensive metabolic panel - Lipid panel reflex to direct LDL Fasting - TSH with free T4 reflex - Vitamin D Deficiency - Spirometry, Breathing Capacity; Future - Spirometry, Breathing Capacity 6. Vitamin D deficiency - Vitamin D Deficiency 7. Fatigue, unspecified type - TSH with free T4 reflex 8. Hyperlipidemia LDL goal <130 - Lipid panel reflex to direct LDL Fasting 9. Acute gouty arthritis -Recommend she take Aleve two tablets 2x a day with food to improve the pain and to relieve the inflammation in her foot through the weekend. - Uric acid -Recommend she drink 6-8 glasses of liquid a day. -Will review lab reports when she returns next week with her . End of Life Planning: Patient currently has an advanced directive: No. I have verified the patient's ablity to prepare an advanced directive/make health care decisions. Literature was provided to assist patient in preparingan advanced directive. COUNSELING: Reviewed preventive health counseling, as reflected in patient instructions Regular exercise Healthy diet/nutrition Vision screening Hearing screening Dental care Estimated body mass index is 24.05 kg/(m^2) as calculated from the following: Height as of this encounter: 5' 6 (1.676 m). Weight as of this encounter: 149 lb (67.6 kg). reports that she is a non-smoker but [...] has been established and reviewed with the Patient and spouse. Counseling Resources: ATP IV Guidelines Pooled Cohorts Equation Calculator Breast Cancer Risk Calculator FRAX Risk Assessment ICSI Preventive Guidelines Dietary Guidelines for Americans, 2009 USDA's MyPlate ASA Prophylaxis Lung CA Screening Simon Claros MD [facility] The information in this document, created by the medical supply technician for me, accurately reflects the services I personally performed and the decisions made by me. I have reviewed and approved this document for accuracy prior to leaving the patient care area. Simon Claros MD 10:24 AM, 01/27/18 documented in this encounter Nursing Notes Demetrice Healy CMA - 01/27/2018 9:00 AM CDT Chief Complaint Patient presents with ??? Wellness Visit Fasting Initial BP 133/74 (BP Location: Left arm, Patient Position: Chair, Cuff Size: Adult Regular) Pulse69 Temp 98 ??F (36.7 ??C) (Oral) Resp 16 Ht 5' 6 (1.676 m) Wt 149 lb (67.6 kg) SpO2 99% BMI 24.05 kg/m2 Estimated body mass index is 24.05 kg/(m^2) as calculated from the following: Height as of this encounter: 5' 6 (1.676 m). Weight as of this encounter: 149 lb (67.6 kg). Medication Reconciliation: paola Healy CMA (AAMA) documented in this encounter Plan of Treatment Upcoming Encounters Date Type Specialty Care Team Description 10/26/2022 Lab Oncology Yris Perez MD [address] [id number] (Wo rk) 11/03/2022 Oncology Visit Oncology Yris Perez MD [address] [address] (Wo rk) documented as of this encounter Procedures Procedure Name Priority Date/Time Associated Comments Diagnosis UA MACROSCOPIC WITH Routine 01/27/2018 10:35 History of freque nt Results for this REFLEX TO MICROSCOPIC AM CDT urinary tract proce dure are in AND CULTURE infections the results Encounter for section. routine adult health examination without abnormal findings VITAMIN D DEFICIENCY Routine 01/27/2018 10:35 Encounter for Re sults for this SCREENING AM CDT routine adult procedure are in health examination the resul ts without abnormal section. findings Vitamin D deficiency URIC ACID Routine 01/27/2018 10:35 Acute gouty Results for this AM CDT arthritis procedure are i n the results section. TSH WITH FREE T4 Routine 01/27/2018 10:35 Encounter for Result s for this REFLEX AM CDT routine adult procedure are in health examination the resul ts without abnormal section. findings Fatigue, unspecified type LIPID REFLEX TO DIRECT Routine 01/27/2018 10:35 Encounter for Results for this LDL PANEL AM CDT routine adult procedure are in health examination the resul ts without abnormal section. findings Hyperlipidemia LDL goal <130 COMPREHENSIVE Routine 01/27/2018 10:35 Malignant neoplasm Resu lts for this METABOLIC PANEL AM CDT of female breast, procedu re are in unspecified the results estrogen receptor section. status, unspecified laterality, unspecified site of breast (H) Encounter for routine adult health examination without abnormal findings CBC WITH PLATELETS Routine 01/27/2018 10:35 Malignant neoplasm Results for this AM CDT of female breast, procedure are in unspecified the results estrogen receptor section. status, unspecified laterality, unspecified site of breast (H) Encounter for routine adult health examination without abnormal findings HC SPIROMETRY, BREATH Routine 01/27/2018 Chronic obstructive Results for this CAPACITY pulmonary disease, procedure are in unspecified COPD the results type (H) section. Encounter for routine adult health examination without abnormal findings documented in this encounter Results (ABNORMAL) Uric acid (01/27/2018 10:35 AM CDT) P athologist Signature Uric Acid 7.9 (H) 2.6 - 6.0 01/27/2018 [facility] mg/dL 2:45 PM CDT [facility] Specimen Anatomical Collection Method Collection Time Receive d Time (Source) Location / / Volume Laterality Blood specimen 01/27/2018 10:35 8 (specimen) AM CDT 10:36 AM CDT Simon Claros MD LAB - BLOOD ORDERABLES Performing Organization Address City/State/ZIP Code Phon e Number [facility] [address] [place] [address] Vitamin D Deficiency (01/27/2018 10:35 AM CDT) athologist Signature Vitamin D 52 20 - 75 01/27/2018 [facility] ug/L 7:56 PM CDT [facility] Comment: Season, race, dietary intake, and treatm ent affect the concentration of 21-qwjyumg-Pwceriw D. Values may decreas e during winter [...] Location / / Volume Laterality Blood specimen 01/27/2018 10:35 8 (specimen) AM CDT 10:36 AM CDT Simon Claros MD LAB - BLOOD ORDERABLES Performing Organization Address City/State/ZIP Code Phon e Number [facility] [address] [place] [address] [facility] TSH with free T4 reflex (01/27/2018 10:35 AM CDT) athologist Signature TSH 1.14 0.40 - 4.00 01/27/2018 [facility] mU/L 2:45 PM CDT [facility] Specimen Anatomical Collection Method Collection Time Receive d Time (Source) Location / / Volume Laterality Blood specimen 01/27/2018 10:35 8 (specimen) AM CDT 10:36 AM CDT Simon Claros MD LAB - BLOOD ORDERABLES Performing Organization Address City/State/ZIP Code Phon e Number [facility] [address] [place] [address] (ABNORMAL) Lipid panel reflex to direct LDL Fasting (01/27/2018 10:35 AM CDT) P athologist Signature Cholesterol 203 (H) <200 mg/dL 01/27/2018 [facility] 2:45 PM T [facility] Comment: Desirable: <200 mg/dl Triglycerides 104 <150 mg/dL 01/27/2018 2:45 PM [facility] HDL Cholesterol 56 >49 mg/dL 01/27/2018 2:45 PM [facility] IEW [facility] LDL Cholesterol 126 (H) <100 mg/dL 01/27/2018 2:45 PM [facility] Calculated T [facility] Comment: Above desirable: ??100-129 mg/dl Borderline High: ??130-159 mg/dL High: ? 160-189 mg/dL Very high: ? >189 mg/dl Non HDL Cholesterol 147 (H) <130 mg/dL 01/27/2018 2:45 PM [facility] Comment: Above Desirable: ??130-159 mg/dl Borderline high: ??160-189 mg/dl High: ? 190-219 mg/dl Very high: ? >219 mg/dl Specimen Anatomical Collection Method Collection Time Receive d Time (Source) Location / / Volume Laterality Blood specimen 01/27/2018 10:35 8 (specimen) AM CDT 10:36 AM CDT Simon Claros MD LAB - BLOOD ORDERABLES Performing Organization Address City/State/ZIP Code Phon e Number [facility] [address] [place] [address] (ABNORMAL) Comprehensive metabolic panel (01/27/2018 10:35 AM CDT) Patholo gist Method Time Signature Sodium 140 133 - 144 01/27/2018 [place] mmol/L 2:[address] [facility] Potassium 4.3 3.4 - 5.3 01/27/2018 [place] mmol/L 2:45 PM CDT [facility] Chloride 105 94 - 109 01/27/2018 [place] mmol/L 2:45 PM CDT [facility] Carbon Dioxide 30 20 - 32 01/27/2018 [place] mmol/L 2:45 PM CDT [facility] Anion Gap 5 3 - 14 01/27/2018 [place] mmol/L 2:45 PM T [facility] Glucose 101 (H) 70 - 99 01/27/2018 [place] mg/dL 2:45 PM CDT [facility] Urea Nitrogen 16 7 - 30 01/27/2018 [place] mg/dL 2:[address] [facility] Creatinine 0.89 0.52 - 01/27/2018 [place] 1.04 mg/dL 2:45 PM T [facility] GFR Estimate 62 >60 01/27/2018 [place] mL/min/1.7 2:45 PM T CLINICS m2 [facility] Comment: Non GFR Calc GFR Estimate If 76 >60 mL/min/1.7m2 01/27/2018 2:45 P M [facility] Black T [facility] Comment: GFR Calc Calcium 9.0 8.5 - 10.1 01/27/2018 2:45 PM [facility] mg/dL T [facility] Bilirubin Total 0.6 0.2 - 1.3 mg/dL 01/27/2018 2:45 PM [facility] Albumin 3.8 3.4 - 5.0 g/dL 01/27/2018 2:45 PM [facility] Protein Total 6.9 6.8 - 8.8 g/dL 01/27/2018 2:[address] [facility] Alkaline Phosphatase 92 40 - 150 U/L 01/27/2018 2:45 PM [facility] ALT 38 0 - 50 U/L 01/27/2018 2:45 PM [place] [facility] T [facility] AST 27 0 - 45 U/L 01/27/2018 2:45 PM [place] C [facility] CDT [facility] Specimen Anatomical Collection Method Collection Time Receive d Time (Source) Location / / Volume Laterality Blood specimen 01/27/2018 10:35 8 (specimen) AM CDT 10:36 AM CDT Simon Claros MD LAB - BLOOD ORDERABLES Performing Organization Address City/State/ZIP Code Phon e Number [facility] [address] [place] [address] CBC with platelets (01/27/2018 10:35 AM CDT) P athologist Signature WBC 5.7 4.0 - 11.0 01/27/2018 [facility] 10e9/L 11:10 AM CDT [facility] [place] RBC Count 4.61 3.8 - 5.2 01/27/2018 [facility] 10e12/L 11:10 AM CDT [facility] [place] Hemoglobin 14.6 11.7 - 01/27/2018 [facility] 15.7 g/dL 11:10 AM CDT [facility] [place] Hematocrit 44.2 35.0 - 01/27/2018 [facility] 47.0 % 11:10 AM CDT [facility] [place] MCV 96 78 - 100 01/27/2018 [facility] fl 11:10 AM CDT [facility] [place] MCH 31.7 26.5 - 01/27/2018 [facility] 33.0 pg 11:10 AM CDT [facility] [place] MCHC 33.0 31.5 - 01/27/2018 [facility] 36.5 g/dL 11:10 AM CDT [facility] [place] RDW 13.6 10.0 - 01/27/2018 [facility] 15.0 % 11:10 AM CDT [facility] [place] Platelet Count 218 150 - 450 01/27/2018 [facility] 10e9/L 11:10 AM CDT [facility] [place] Specimen Anatomical Collection Method Collection Time Receive d Time (Source) Location / / Volume Laterality Blood specimen 01/27/2018 10:35 8 (specimen) AM CDT 10:36 AM CDT Simon Claros MD LAB - BLOOD ORDERABLES Performing Organization Address City/[facility]/ZIP Code Phon e Number [facility] [address] [place] [address] UA reflex to Microscopic and Culture (01/27/2018 10:35 AM CDT) Patholo gist Method Time Signature Color Urine Yellow 01/27/2018 [place] 11:08 AM [facility]INICS CDT [place] Appearance Urine Clear 01/27/2018 [place] 11:08 AM [facility] [place] Glucose Urine Negative NEG^Negat 01/27/2018 [place] dee mg/dL 11:08 AM [facility]INICS T [place] Bilirubin Urine Negative NEG^Negat 01/27/2018 [place] dee 11:08 AM [facility] CD[facility] [place] Ketones Urine Negative NEG^Negat 01/27/2018 [place] dee mg/dL 11:08 AM [facility]INICS T [place] Specific [place] 1.020 1.003 - 01/27/2018 [place] Urine 1.035 11:08 AM [facility]INICS T [place] Blood Urine Negative NEG^Negat 01/27/2018 [facility] dee 11:08 AM [facility] [place] pH Urine 7.0 5.0 - 7.0 01/27/2018 [facility] pH 11:08 AM [facility] [place] Protein Albumin Negative NEG^Negat 01/27/2018 [place] Urine dee mg/dL 11:08 AM [facility]ICS CDT [place] Urobilinogen 0.2 0.2 - 1.0 01/27/2018 [place] Urine EU/dL 11:08 AM [facility]ICS T [place] Nitrite Urine Negative NEG^Negat 01/27/2018 [place] dee 11:08 AM [facility] CD[facility] [place] Leukocyte Negative NEG^Negat 01/27/2018 [facility] Esterase Urine dee 11:08 AM [facility] [place] Source Midstream 01/27/2018 [facility] Urine 11:08 AM [facility] [place] Specimen (Source) Anatomical Collection Method Collection Time Re ceived Time Location / / Volume Laterality Examination of 01/27/2018 10:35 8 midstream urine AM CDT 10:36 AM T specimen (procedure) Simon Claros MD LAB - URINE ORDERABLES Performing Organization Address City/State/ZIP Code Phon e Number [facility] [place] [address] [place] [address] Spirometry, Breathing Capacity (01/27/2018) P athologist Signature FEV-1 FVC FEV1/FVC FEF 25/75 Narrative This result has an attachment that is no t available. Simon Claros MD PROCEDURES documented in this encounter Visit Diagnoses Diagnosis Chronic obstructive pulmonary disease, u nspecified COPD type (H) - Primary Malignant neoplasm of female breast, uns pecified estrogen receptor status, unspecified laterality, unspecified site of breast (H) History of frequent urinary tract infect ions Personal history of urinary (tract) infe ction Atrophic vaginitis Postmenopausal atrophic vaginitis [facility] [place] [facility] Vitamin D deficiency Unspecified vitamin D deficiency Fatigue, unspecified type Hyperlipidemia LDL goal <130 Other and unspecified hyperlipidemia Acute gouty arthritis Acute gouty arthropathy documented in this encounter Additional Health Concerns Infection Onset Date Last Indicated Resolved Time 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, 01/08/2017 9 06/08/17, 08/26/17 documented as of this encounter Care Teams Parent Partner Relationship Specialty Start Date End Date Simon Claros MD PCP - General Internal Medicine 09/22/12 08/20/21 Simon Claros MD PCP - Assigned PCP 06/18/16 01/17/19 [address] [place] [address] Simon Claros MD Assigned PCP 06/18/16 03/01/21 [address] [place] [address] documented as of this encounter
--- OUTSIDE RECORDS SUMMARY | 2022-08-20 14:26 | XMS_ITS | Encounter Summary ---
:1945 Author Organization [place] Address [address] [place] [address] Care Team Providers Name Role Phone Simon Claros MD Primary Care Provider Simon Claros MD Unavailable Simon Claros MD Unavailable Reason for Visit Reason Onset Date Comments Results 03/03/2018 dexa scan and report mailed & Faxed to [facility] [address] [place] [address] Encounter Details Date Type Department Care Team Description 03/03/2018 Telephone [facility] Simon Claros, Result s (dexa scan and Clinic Paulo HINES report mailed & Faxed [address] [facility] [place] [address] to [place] [facility] [address] [facility] [address] [facility] [place] [address] ) [phone] Social History Tobacco Use Types Packs/Day Years Used Date Passive Smoke Exposure - Never Smoker Smokeless Tobacco: Never Used Alcohol Use Standard Drinks/Week Comments No 0 (1 standard drink = 0.6 oz pure alcoho l) Sex Assigned at Date Recorded Female 01/27/2022 12:36 PM CDT documented as of this encounter Miscellaneous Notes Telephone Encounter - Ingrid Knight - 03/03/2018 8:05 AM CDT dexa scan and report mailed & Faxed to [place] [facility] [address] [facility] [address] [place] [address] pn [phone] documented in this encounter Plan of Treatment Upcoming Encounters Date Type Specialty Care Team Description 10/26/2022 Lab Oncology Yris Perez MD [address] [facility] [address] [place], [place] [phone] (Wo rk) 11/03/2022 Oncology Visit Oncology Yris Perez MD [address] [phone] (Wo rk) documented as of this encounter Visit Diagnoses Not on filedocumented in this encounter Additional Health Concerns Infection Onset Date Last Indicated Resolved Time 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, 01/08/2017 9 06/08/17, 08/26/17 documented as of this encounter Care Teams Podopediatrician Relationship Specialty Start Date End Date Simon Claros MD PCP - General Internal Medicine 09/22/12 08/20/21 Simon Claros MD PCP - Assigned PCP 06/18/16 01/17/19 [address] [place] [address] Simon Claros MD Assigned PCP 06/18/16 03/01/21 [address] [place] [address] documented as of this encounter
--- OUTSIDE RECORDS SUMMARY | 2022-08-20 14:26 | XMS_ITS | Encounter Summary ---
:1945 Author Organization [place] Address [facility] [place] [address] Care Team Providers Name Role Phone Simon Claros MD Primary Care Provider Simon Claros MD Unavailable Simon Claros MD Unavailable Reason for Visit Auth/Cert Specialty Diagnoses / Procedures Referred By Contact Refer red To Contact Surgery Diagnoses Uti;s Rh Periop Services Procedures CYSTOSCOPY [address], [place] [address] Phone: Fax: Referral ID Status Reason Start Date Expiration Date Visits Requ ested Visits Authorized [id number] 1 1 Encounter Details Date Type Department Care Team Description 12/09/2017 Anesthesia Event [facility] Sina Hernandez MD [facility] ANESTHESIA [address] [place], [place] [address] PeriOp Services Fanny Knight APRN [facility] ANESTHESIA [address] [place], [place] [id number] [address] [place] [address] Anesthesia Record Procedure Summary Procedure Name Responsible Anesthesia Start Anesthesia Stop Anesthesiologist Time Time Video Cystoscopy Sina Hrenandez MD 12/09/17 1318 8 1429 Rigid and Flexible, right retrogrades, cystogram, vaginoscopy (N/A Urethra) Events Date Time Event Comment 12/09/2017 1304 1318 An Start 1318 An Start Data 1328 An Induction 1329 AN START SEVO 1330 MD Present 1330 An Intubation 1346 MD Present 1415 AN END SEVO 1423 an stop data 1429 An Stop Electronically s igned by Jessi Oliva on December 09, 2017 2:29 PM Name Total midazolam 1mg/mL 2 mg fentaNYL (SUBLIMAZE) injection 100 mcg propofol (DIPRIVAN) injection 10 mg/mL vial 150 mg lidocaine 1% 20 mg dexamethasone 4 mg/mL 4 mg ondansetron 2 mg/mL 4 mg ePHEDrine 5 mg/mL 5 mg ceFAZolin (ANCEF) intermittent infusion 2 g in 100 mL dextrose PRE-MIX 2 g lactated ringers infusion 1,100 mL Agents Name NO HELIOX O2 N2O Air Exp Sevoflurane Exp Isoflurane Exp Desflurane Exp N2O Ins Sevoflurane Ins Isoflurane Ins Desflurane O2 Auxiliary Blood No blood administrations on file. Lines, Drains, and Airways Type Details Placement Removal Incision/Surgical Site 03/10/16; 1312; Right; 03/10/16 1312 by Hip Haven Ansari RN Incision/Surgical Site 02/08/17; 1210; Right; 02/08/17 1210 by Breast Fatemeh Dunlap RN Incision/Surgical Site 02/08/17; 1231; Right; 02/08/17 1231 by Axillary Fatemeh Dunlap RN Incision/Surgical Site 12/09/17; 1336; Other 12/09/17 1336 by (Comment); urethra Erika Kunz RN Peripheral IV 20 G; Left; Hand 12/09/17 1345 by 12/09/17 1541 by Lucrecia Ortiz RN Retired Non-Surgical 12/09/17; 1330; Easy; 12/09/17 1330 by 11/16 04/01 1421 by Airway Intravenous; Easy; 4; Fatemeh Goel Webb, S usan Marie, laryngeal mask airway; ELECTROPLATER APPRENTICE PUSHCART PEDDLER ELECTROPLATER APPRENTICE PUSHCART PEDDLER center of mouth; Equal, clear and bilateral; PUSHCART PEDDLER; Selena Goel PUSHCART PEDDLER; NMB Reversed, Spontaneous ventilation, Adequate tidal volume, Follows commands, Website/Blog Editor strength adequate, Head lift adequate, Transported with oxygen, Transported with monitors applied, Purposeful movement documented in this encounter Social History Tobacco Use Types Packs/Day Years Used Date Passive Smoke Exposure - Never Smoker Smokeless Tobacco: Never Used Alcohol Use Standard Drinks/Week Comments No 0 (1 standard drink = 0.6 oz pure alcoho l) Sex Assigned at Date Recorded Female 01/27/2022 12:36 PM CDT documented as of this encounter OR Notes Anesthesia Postprocedure Evaluation - Sina Hernandez MD - 12/09/2017 5:17 PM CST Patient: Darshana Brooks Procedure(s): Video Cystoscopy Rigid and Flexible, right retrogrades, cystogram, vaginoscopy - Wound Class: II-Clean Contaminated Diagnosis:Uti;s Diagnosis Additional Information: Pre-operative diagnosis: UTIs Post-operative diagnosis recurrent UTIs Procedure: Procedure(s): Video Cystoscopy Rigid and Flexible, right retrogrades, cystogram, vaginoscopy - Wound Class: II-Clean Contaminated Anesthesia Type: General Note: Anesthesia Post Evaluation Patient location during evaluation: PACU Patient participation: Able to fully participate in evaluation Level of consciousness: awake and alert Pain management: adequate Airway patency: patent Cardiovascular status: acceptable Respiratory status: acceptable Hydration status: acceptable PONV: none Anesthetic complications: None Last vitals: Vitals: 12/09/17 1500 12/09/17 1515 12/09/17 1558 BP: 150/79 (!) 167/103 (!) 152/93 Pulse: Resp: 13 16 16 Temp: 97.4 ??F (36.3 ??C) 97.6 ??F (36.4 ??C) SpO2: 100% 99% 98% Electronically Signed By: Sina Hernandez MD December 09, 2017 5:17 PM RAFT DESIGNER Anesthesia Preprocedure Evaluation - Sina Hernandez MD - 12/09/2017 1:44 PM CST Anesthesia Evaluation . Pt has had prior anesthetic. Type: General No history of anesthetic complications ROS/MED HX ENT/Pulmonary: (+)mild COPD, , . . Neurologic: - neg neurologic ROS Cardiovascular: - neg cardiovascular ROS METS/Exercise Tolerance: Hematologic: Comments: Lab Test 12/06/17 02/03/17 01/05/17 1000 0825 1003 WBC 3.8* 6.7 7.1 HGB 15.3 14.1 14.9 MCV 94 93 91 PLT 202 235 238 Lab Test 12/06/17 02/03/17 01/05/17 1000 0825 1003 NA 143 141 139 POTASSIUM 4.5 4.1 4.6 CHLORIDE 109 107 104 CO2 24 28 30 BUN 11 17 13 CR 0.90 0.87 0.93 ANIONGAP 10 6 5 ROSALINO 8.9 8.7 9.4 GLC 90 90 104* Musculoskeletal: - neg musculoskeletal ROS GI/Hepatic: - neg GI/hepatic ROS Renal/Genitourinary: - ROS Renal section negative Endo: - neg endo ROS Psychiatric: - neg psychiatric ROS Infectious Disease: - neg infectious disease ROS Malignancy: Other: - neg other ROS Physical Exam Normal systems: cardiovascular, pulmonary and dental Airway Mallampati: II TM distance: >3 FB Neck ROM: full Dental Cardiovascular Pulmonary Anesthesia Plan History & Physical Review History and physical reviewed and following examination; no interval change. ASA Status: 3 . NPO Status: > 8 hours Plan for General and LMA with Intravenous induction. Maintenance will be Balanced. PONV prophylaxis: Ondansetron (or other 5HT-3) and Dexamethasone or Solumedrol Postoperative Care Postoperative pain management: IV analgesics and Oral pain medications. Consents Anesthetic plan, risks, benefits and alternatives discussed with: Patient. Use of blood products discussed: Yes. Use of blood products discussed with Patient. Consented to blood products. . . RAFT DESIGNER documented in this encounter Miscellaneous Notes Anesthesia Care Transfer Note - Jessi Oliva APRN PUSHCART PEDDLER - 12/09/2017 2:29 PM CST Patient: Darshana Brooks Procedure(s): Video Cystoscopy Rigid and Flexible, right retrogrades, cystogram, vaginoscopy - Wound Class: II-Clean Contaminated Diagnosis: Uti;s Diagnosis Additional Information: No value filed. Anesthesia Type: No value filed. Note: Airway :Face Mask Patient transferred to:PACU Comments: Adequate spontaneous respirations.Handoff Report: Identifed the Patient, Identified the Reponsible Provider, Reviewed the pertinent medical history, Discussed the surgical course, Reviewed Intra-OP anesthesia mangement and issues during anesthesia, Set expectations for post-procedure period and Allowed opportunity for questions and acknowledgement of understanding Vitals: (Last set prior to Anesthesia Care Transfer) PUSHCART PEDDLER VITALS 12/09/2017 1353 - 12/09/2017 1429 12/09/2017 Pulse: 96 SpO2: 100 % Electronically Signed By: Jessi Oliva APRN CRNA December 09, 2017 2:29 PM RAFT DESIGNER documented in this encounter Plan of Treatment Upcoming Encounters Date Type Specialty Care Team Description 10/26/2022 Lab Oncology Yris Perez MD [address] [place] [phone] (Wo rk) 11/03/2022 Oncology Visit Oncology Yris Perez MD [address] [place] [phone] (Wo rk) documented as of this encounter Visit Diagnoses Not on filedocumented in this encounter Administered Medications Inactive Administered Medications - up to 3 most recent administrations Medication Order MAR Action Action Date Dose Rate Site ceFAZolin (ANCEF) intermittent Given 12/09/2017 1:18 PM AIRCRAFT DESIGNER 2 g infusion 2 g in 100 mL dextrose PRE-MIX Routine, 2 g, Intravenous, PRE-OP/PRE-PROCEDURE, Starting on Louann 12/09/17 at 1133, For 1 dose, Give first dose within 1 hour PRIOR to incision. If patient weight is greater than or equal to 120 kg increase dose to 3 g., Indications: Perioperative Pharmacoprophylaxis, Pre-procedure dexamethasone (DECADRON) injection Given 12/09/2017 1:28 PM AIRCRAFT DESIGNER 4 mg Intravenous, PRN, Administer over 1 Minutes, Starting on Louann 12/09/17 at 1328, Anesthesia Intra-op ePHEDrine injection Given 12/09/2017 1:33 PM AIRCRAFT DESIGNER 5 mg PRN, Starting on Louann 12/09/17 at 1333, Anesthesia Intra-op fentaNYL (PF) (SUBLIMAZE) injection Given 12/09/2017 1:28 PM AIRCRAFT DESIGNER 100 mcg PRN, moderate to severe pain, Administer over 3-5 Minutes, Starting on Louann 12/09/17 at 1328, Anesthesia Intra-op lactated ringers infusion New Bag 12/09/2017 2:08 PM AIRCRAFT DESIGNER at 25 mL/hr, Intravenous, CONTINUOUS, IF patient NOT on dialysis., Pre-procedure, Starting on Louann 12/09/17 at 1145, Until Louann 12/09/17 at 1434 New Bag 12/09/2017 1:18 PM AIRCRAFT DESIGNER lidocaine 1 % injection Given 12/09/2017 1:28 PM AIRCRAFT DESIGNER 20 mg Intravenous, PRN, Starting on Louann 12/09/17 at 1328, Anesthesia Intra-op midazolam (VERSED) injection Given 12/09/2017 1:18 PM AIRCRAFT DESIGNER 2 mg Administer over 2 Minutes, PRN, anxiety, Starting on Louann 12/09/17 at 1318, Anesthesia Intra-op ondansetron (ZOFRAN) injection Given 12/09/2017 2:22 PM AIRCRAFT DESIGNER 4 mg Intravenous, PRN, nausea, vomiting, Administer over 2-5 Minutes, Starting on Louann 12/09/17 at 1422, Anesthesia Intra-op propofol (DIPRIVAN) injection 10 mg/mL v ial Given 12/09/2017 1:28 PM AIRCRAFT DESIGNER 150 mg PRN, Starting on Louann 12/09/17 at 1328, Anesthesia Intra-op documented in this encounter Additional Health Concerns Infection Onset Date Last Indicated Resolved Time 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, 01/08/2017 9 06/08/17, 08/26/17 documented as of this encounter Care Teams Cement Worker Relationship Specialty Start Date End Date Simon Claros MD PCP - General Internal Medicine 09/22/12 08/20/21 Simon Claros MD PCP - Assigned PCP 06/18/16 01/17/19 [address] [place] [phone] Simon Claros MD Assigned PCP 06/18/16 03/01/21 [address] [place] [place] [phone] documented as of this encounter
--- OUTSIDE RECORDS SUMMARY | 2022-08-20 14:26 | XMS_ITS | Encounter Summary ---
:1945 Author Organization [place] Address [address] [facility] 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 Laurie Villarreal MD Procedures DX Wrist Heel Rad[facility] [place] [facility] [address] [place], [place] [address] Referral ID Status Reason Start Date Expiration Date Visits Requ ested Visits Authorized [id number] Closed 02/28/2018 02/28/2019 1 1 Encounter Details Date Type Department Care Team Description 02/28/2018 Radiant Appointment [facility] Kal g term current use Clinic [address] [place] [address] Social History Tobacco Use Types Packs/Day Years [...] MD 420 [facility] [address] [place], [place] [address] (Wo rk) 11/03/2022 Oncology Visit Oncology Yris Perez MD [address] [facility] [address] [place], [place] [phone] (Wo rk) documented as of this encounter Procedures Procedure Name Priority Date/Time Associated Diagnosis Comme nts DX Routine 02/28/2018 1:21 PM half-way current use Results for this WRIST/HEEL/RADIUS CDT of hormonal procedure are in contraceptive the results section. documented in this encounter Results DX Wrist Heel Radius (02/28/2018 1:21 PM CDT) Anatomical Region Laterality Modality Dexa Bone Mineral Density Specimen (Source) Anatomical Location Collection Method / Collectio n Time Received Time / Laterality Volume Narrative 03/01/2018 7:57 AM CDT BONE DENSITOMETRY [address] [address] 02/28/2018 ?? PATIENT: Darshana Brooks CHART: [id number] : ??1945 AGE: ??72 year old SEX: ??female REFERRING PROVIDER: ??LAURIE VILLARREAL ?? PROCEDURE: ??Bone density scanning was p erformed using DXA technology of the lumbar spine and hip. ??Scanning was performed on a [employer] scanner. ??Reporting is completed in the form of a T-score. ??The T-score represents the standard deviation from p eak bone mass based on a young healthy adult. ?? REFERENCE T-SCORES: ?Normal ?-1.0 and greater ?Osteopenia ? Between -1. 0 and -2.5 ?Osteoporosis ? -2.5 and less ? RISK FACTORS: ??Post-menopausal, Early m enopause before age 45, Parent history of osteoporosis, Condition relat ed to bone loss: breast cancer therapy: arimidex CURRENT TREATMENT: ??Vitamin D ?? FINDINGS: ? Lumbar Spine (L1-L4) T-score: ??-1.6 ? Left Femoral Neck T-s core: ??-2.2 ? Forearm (radius 33%) T-score: ??-1.3 The right femur is not acceptable for ev aluation due to previous arthroplasty. Lumbar (L1-L4) BMD: 0.994 ? Left Total Hip BMD: 0.826 ? Forearm (radius 33%) BMD: 0.611 LATERAL VERTEBRAL ASSESSMENT Procedure: ??Vertebral fracture assessme nt was performed in the lateral decubitus position using a [employer] ??densitometer. Indications for VFA: T-score of -1.0 or worse and age (female>69) Confounding factors for VFA: rib shadows . ??The LVA scan is interpretable from T7 to L4. VFA Findings: Using the semi-quantitativ e analysis of Adrián there was evidence of no spinal deformity VFA Impression: Darshana Brooks has no v ertebral fractures identified on the VFA. IMPRESSION Osteopenia. Recommendations include ensuring adequat e Calcium and Vitamin D. The current NOF Guidelines recommend igor atment for patients with prior hip or vertebral fracture, T-score -2.5 or b elow, or 10 year risk of any major osteoporotic fracture >20% or [address] of hip fracture >3%, as calculated using the FRAX calculator (tamar w.shef.ac.uk/FRAX or you can google FRAX). ?? This patient's risks based on available information, with the use of FRAX, are 13 % for major osteoporotic fracture and 3.2 % for hip fracture. Based on these guidelines, treatment (in addition to calcium and vitamin D) is recommended for this patient, afte r ruling out other causes of osteoporosis. This is meant as an aid to clinical deci jorje making; one must still use clinical judgement. Follow up can be considered in 2 years. Debi Ansari M.D. Electronically signed ?? Laurie Villarreal MD IMG DEXA ORDERABLES documented in this encounter Visit Diagnoses Diagnosis half-way current use of hormonal contra ceptive Encounter for long-term (current) use of other medications documented in this encounter Additional Health Concerns Infection Onset Date Last Indicated Resolved Time 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, 01/08/2017 9 06/08/17, 08/26/17 documented as of this encounter Care Teams Manager Environmental Relationship Specialty Start Date End Date Simon Claros MD PCP - General Internal Medicine 09/22/12 08/20/21 Simon Claros MD PCP - Assigned PCP 06/18/16 01/17/19 [address] [place] [address] Simon Claros MD Assigned PCP 06/18/16 03/01/21 [address] [place] [address] documented as of this encounter
--- OUTSIDE RECORDS SUMMARY | 2022-08-20 14:26 | XMS_ITS | Encounter Summary ---
:1945 Author Organization [place] Address [address] 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 Laurie Villarreal MD Procedures DX Hip/Pelvis/Spine w Lat Fraction [place] [facility] [address] [facility] [address] [place], [place] [address] Referral ID Status Reason Start Date Expiration Date Visits Requ ested Visits Authorized [id number] Closed 02/28/2018 02/28/2019 1 1 Encounter Details Date Type Department Care Team Description 02/28/2018 Radiant Appointment [facility] Laurie Villarreal term current use Clinic Paulo Santana MD of hormonal [address] [place] [phone] Social History Tobacco Use Types Packs/Day [...] 10/26/2022 Lab Oncology Yris Perez MD [address] [phone] (Madeleine rk) 11/03/2022 Oncology Visit Oncology Yris Preez MD [address] [phone] (Madeleine proctor) documented as of this encounter Procedures Procedure Name Priority Date/Time Associated Diagnosis Comme nts DX Routine 02/28/2018 1:22 PM care home current use Results for this HIP/PELVIS/SPINE W CDT of hormonal procedure are in LAT FRACTION contraceptive the results ANALYSIS section. documented in this encounter Results DX Hip/Pelvis/Spine w Lat Fraction Anna (02/28/2018 1:22 PM CDT) Anatomical Region Laterality Modality Dexa Bone Mineral Density Specimen (Source) Anatomical Location Collection Method / Collectio n Time Received Time / Laterality Volume Narrative 03/01/2018 7:57 AM CDT BONE DENSITOMETRY [address] [address] 02/28/2018 ?? PATIENT: Darshana Brooks CHART: [id number] : ??1945 AGE: ??72 year old SEX: ??female REFERRING PROVIDER: ??LAURIE VILLARREAL ?? PROCEDURE: ??Bone density scanning was p erformed using DXA technology of the lumbar spine and hip. ??Scanning was performed on a [email or web address] scanner. ??Reporting is completed in the form [...] in the lateral decubitus position using a [employer]digy ??densitometer. Indications for VFA: T-score of [...] documented in this encounter Visit Diagnoses Diagnosis care home current use of hormonal contra ceptive Encounter for long-term (current) use of other medications documented in this encounter Additional Health Concerns Infection Onset Date Last Indicated Resolved Time 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, 01/08/2017 9 06/08/17, 08/26/17 documented as of this encounter Care Teams Route Delivery Clerk Relationship Specialty Start Date End Date Simon Claros MD PCP - General Internal Medicine 09/22/12 08/20/21 Simon Claros MD PCP - Assigned PCP 06/18/16 01/17/19 [address] [place] [address] Simon Claros MD Assigned PCP 06/18/16 03/01/21 [address] [place] [address] documented as of this encounter
--- OUTSIDE RECORDS SUMMARY | 2022-08-20 14:26 | XMS_ITS | Encounter Summary ---
:1945 Author Organization [place] Address [address] [facility] [place] [address] Care Team Providers Name Role Phone Simon Claros MD Primary Care Provider Simon Claros MD Unavailable Simon Claros MD Unavailable Reason for Visit Auth/Cert Specialty Diagnoses / Procedures Referred By Contact Refer red To Contact Surgery Diagnoses Uti;s Rh Periop Services Procedures CYSTOSCOPY [address] [place], [place] [address] Phone: Fax: Referral ID Status Reason Start Date Expiration Date Visits Requ ested Visits Authorized [id number] 1 1 Encounter Details Date Type Department Care Team Description 12/09/2017 Surgery [facility] Jones Nascimento, Vide o Cystoscopy Rigid [place] PeriOp Servic margie HINES and Flexible, right [address] [facility] [address] retrogrades, cystogram, [place], [place] [address] vaginoscopy [phone] [place] [address] (Wo rk) Surgery Details Date/Time Status Location OR Service Patient Case Class Case Type Trauma Class Case? 12/09/17 12:50 Posted [facility] OR OR 14 Urology Same Day PM Surgery Panel 1 Procedure LRB Anes Op Region Wound Class Commen ts Video Cystoscopy N/A General Urethra II-Clean Contaminat ed Video Cystoscopy Rigid and Flexible, Rigid and Flexible, right retrogrades, right retrogrades, cystogram, cystogram, vaginoscopy vaginoscopy Surgeon Surgeon Role Service Panel Jones Nascimento MD Primary Urology 1 Special Needs 5'6 ; 147 lb documented in this encounter Social History Tobacco [...] Sign Reading Time Taken Comments Blood Pressure 156/72 12/09/2017 11:34 AM SOLAR FIELD SERVICE TECHNICIAN Pulse 76 12/09/2017 11:34 AM SOLAR FIELD SERVICE TECHNICIAN Temperature 36.5 ??C (97.7 ??F) 12/09/2017 11:34 AM SOLAR FIELD SERVICE TECHNICIAN Respiratory Rate 18 12/09/2017 11:34 AM SOLAR FIELD SERVICE TECHNICIAN Oxygen Saturation 98% 12/09/2017 11:34 AM SOLAR FIELD SERVICE TECHNICIAN Inhaled Oxygen Concentration - - Weight 66.2 kg (146 lb) 12/09/2017 11:34 AM SOLAR FIELD SERVICE TECHNICIAN Height 167.6 cm (5' 6) 12/09/2017 11:34 AM SOLAR FIELD SERVICE TECHNICIAN Body Mass Index 23.57 12/09/2017 11:34 AM SOLAR FIELD SERVICE TECHNICIAN documented in this encounter Discharge Instructions Discharge InstructionsLucrecia Ortiz RN - 12/09/2017 2:54 PM CST CYSTOSCOPY DISCHARGE INSTRUCTIONS [facility] / UROLOGY [facility] [phone] YOU MAY GO BACK TO YOUR NORMAL [...] STILL NOT ABLE TO URINATE (PASS WATER). R FIELD SERVICE TECHNICIAN documented in this encounter Medications at Time [...] Note [facility] Pre-surgical visit per request for skein yarn dyer support prior to surgery. Met with pt, Darell, and her spouse, Angelo and they shared worries and hopes for surgery. They identify as Adventist and notes that Joe is my Lord and Savior. They then invited prayer and we shared in prayer together. Oriented family howto request skein yarn dyer support if hospitalization is required post surgery. Otherwise no other needs expressed. Naun Oleary. Staff Clinical Quality Assurance Associate Pager #[phone] R FIELD SERVICE TECHNICIAN documented in this encounter H&P Notes Indu Galicia - 12/08/2017 10:57 AM CST This note is for the purpose of making the H&P performed in clinic within the last 30 days available in the hospital surgical encounter. R FIELD SERVICE TECHNICIAN Source Note - Simon Claros MD - 12/03/2017 12:41 PM SOLAR FIELD SERVICE TECHNICIAN [address] [address] Dept: [phone] PRE-OP EVALUATION: Today's date: 12/06/2017 Darell Jackson (: 1945) presents for pre-operative evaluation assessment as requested by Jones Simpson MD. She requires evaluation and anesthesia risk assessment prior to undergoing surgery/procedure for treatment of CYSTOSCOPY . Proposed procedure: Video Cystoscopy Rigid and Flexible Date of Surgery/ Procedure: 12/09/17 Time of Surgery/ Procedure: 1250pm Hospital/Surgical Facility: [facility] Primary Physician: Simon Claros Type of Anesthesia [...] Surgeon: Alejo Aburto MD; Location: GI ??? STOCK TRADER SURGERY hysterectomy ??? LUMPECTOMY BREAST WITH SEED [...] behalf by Megan Cannon, a trained medical billing coder. The creation of this document is based the provider's statements to the medical billing coder. Keronibnoy Cannon 9:22 AM, December 06, 2017 EXAM: [...] cardiovascular risks for perioperative complications such as (MT, PE, VFib and 3?? AV Block): No [...] in this document, created by the medical billing coder for me, accurately reflects the services I personally performed and the decisions made by me. I have reviewed and approved this document for accuracy prior to leaving the patient care area. Simon Claros MD 11:10 AM, 12/06/17 Copy of this evaluation report is provided to requesting physician. [facility] Preop Guidelines R FIELD SERVICE TECHNICIAN documented in this encounter Miscellaneous Notes Op [...] draped in a sterile fashion. A #22 Mohawk Storz cystoscope with obturator was gently introduced [...] no opening. I then placed a 20 Mohawk Fang catheter with 5 mL in the [...] NASCIMENTO JR, MD MT: Name: DARELL JACKSON MRN: [id number] Account: [id number] : 1945 Procedure Date: 12/09/2017 Document: [id number] cc: Simon Claros MD R FIELD SERVICE TECHNICIAN Brief Op Note - Jones Nascimento MD - 12/09/2017 2:24 PM CST [facility] Brief Operative Note Pre-operative diagnosis: UTIs Post-operative diagnosis recurrent UTIs Procedure: Procedure(s): Video Cystoscopy Rigid and Flexible, right retrogrades, cystogram, vaginoscopy - Wound Class: II-Clean Contaminated Surgeon(s): Surgeon(s) and Role: Jones Nascimento MD - Primary Estimated blood loss: 0cc Specimens: none Findings: R FIELD SERVICE TECHNICIAN documented in this encounter Plan of Treatment Upcoming Encounters Date Type Specialty Care Team Description 10/26/2022 Lab Oncology Yris Perez MD [address] [place] [phone] (Wo rk) 11/03/2022 Oncology Visit Oncology Yris Perez MD [address] [address] (Wo rk) documented as of this encounter Procedures Procedure Name Priority Date/Time Associated Comments Diagnosis XR SURGERY JAYY Routine 12/09/2017 2:19 PM Result s for this FLUORO LESS THAN 5 SOLAR FIELD SERVICE TECHNICIAN procedure are in MIN W STILLS the results section. CYSTOSCOPY 12/09/2017 1:10 PM recurrent UTIs SOLAR FIELD SERVICE TECHNICIAN Special Needs 5'6 ; 147 lb documented in this encounter Results XR Surgery JAYY L/T 5 Min Fluoro w Stills (12/09/2017 2:19 PM SOLAR FIELD SERVICE TECHNICIAN) Specimen (Source) Anatomical Location Collection Method / Collectio n Time Received Time / Laterality Volume Narrative RADIANT - 12/09/2017 2:19 PM SOLAR FIELD SERVICE TECHNICIAN This exam was marked as non-reportable because it will not be read by a radiologist or a [facility] non-radiologis t provider. Jones Nascimento MD IMG DIAGNOSTIC IMAGING ORDER [place] Performing Organization Address City/State/ZIP Code Phon e Number RADIANT documented in this encounter Visit Diagnoses Not on filedocumented in this encounter Administered Medications Inactive Administered Medications - up to 3 most recent administrations Medication Order MAR Action Action Date Dose Rate Site iopamidol 61% (ISOVUE Given 12/09/2017 2:09 40 ml given Operative 300) 50 mL + sterile PM SOLAR FIELD SERVICE TECHNICIAN Site /Surgical Site water for irrigation 50 mL PRN, Starting on Louann 12/09/17 at 1342, Intra-procedure Given 12/09/2017 1:56 PM SOLAR FIELD SERVICE TECHNICIAN 10 ml given Opera tive Site/Surgical Site sterile water (bottle) Given 12/09/2017 2:15 PM 4,500 mLs Operative irrigation SOLAR FIELD SERVICE TECHNICIAN Site/Surgical S ite PRN, Intra-procedure, Starting on Louann 12/09/17 at 1407, Until Louann 12/09/17 at 1537 documented in this encounter Active and Recently Administered Medications Times are shown in SOLAR FIELD SERVICE TECHNICIAN. Scheduled Medication Order 12/07/2017 12/08/2017 12/09/2017 [id number] [...] documented as of this encounter Care Teams Oceanography Teacher Relationship Specialty Start Date End Date Simon Claros MD PCP - General Internal Medicine 09/22/12 08/20/21 Simon Claros MD PCP - Assigned PCP 06/18/16 01/17/19 [address] [place] [address] Simon Claros MD Assigned PCP 06/18/16 03/01/21 [address] [place] [address] documented as of this encounter
--- OUTSIDE RECORDS SUMMARY | 2022-08-20 14:26 | XMS_ITS | Encounter Summary ---
:1945 Author Organization [place] Address [address] [facility] [place] [address] Care Team Providers Name Role Phone Simon Claros MD Primary Care Provider Simon Claros MD Unavailable Simon Claros MD Unavailable Reason for Visit Reason Onset Date Comments Medication Question 11/24/2017 antibiotic Encounter Details Date Type Department Care Team Description 11/24/2017 Telephone [facility] Iggy Dodd, Medi cation Question Urology Clinic [place] HINES (antibiotic) [address] [place] [address] [place] [phone] [address] (Wo rk) Social History Tobacco Use Types Packs/Day Years Used Date Passive Smoke Exposure - Never Smoker Smokeless Tobacco: Never Used Alcohol Use Standard Drinks/Week Comments No 0 (1 standard drink = 0.6 oz pure alcoho l) Sex Assigned at Date Recorded Female 01/27/2022 12:36 PM CDT documented as of this encounter Miscellaneous Notes Telephone Encounter - Radha Gutierrez LPN - 11/24/2017 3:35 PM CST Returning patient's phone call. She had actually called yesterday. She was started on Cipro [address] Dodd last weekend. She still has cloudy urine. She is leaving for [facility] early tomorrow morning. Per Dr. Dodd, go to [facility] for UA/UC, continue Cipro 250 mg BID until culture results are back. I apologized more than once for not getting back to her sooner. Radha Gutierrez LPN RONMENTAL SUSTAINABILITY MANAGER documented in this encounter Plan of Treatment Upcoming Encounters Date Type Specialty Care Team Description 10/26/2022 Lab Oncology Yris Perez MD [address] [facility] [address] [place], [place] [address] (Wo rk) 11/03/2022 Oncology Visit Oncology Yris Perez MD [address] [phone] (Wo rk) documented as of this encounter Visit Diagnoses Not on filedocumented in this encounter Additional Health Concerns Infection Onset Date Last Indicated Resolved Time 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, 01/08/2017 9 06/08/17, 08/26/17 documented as of this encounter Care Teams [employer] Relationship Specialty Start Date End Date Simon Claros MD PCP - General Internal Medicine 09/22/12 08/20/21 Simon Claros MD PCP - Assigned PCP 06/18/16 01/17/19 [address] [place] [place] [address] Simon Claros MD Assigned PCP 06/18/16 03/01/21 [address] [place] [address] documented as of this encounter
--- OUTSIDE RECORDS SUMMARY | 2022-08-20 14:26 | XMS_ITS | Encounter Summary ---
:1945 Author Organization [place] Address [address] [facility] [place] [address] Care Team Providers Name Role Phone Simon Claros MD Primary Care Provider Simon Claros MD Unavailable Simon Claros MD Unavailable Encounter Details Date Type Department Care Team Description 01/07/2018 [facility] Urology Iggy Dodd MD [address] [facility] [address] [place] [address] [place] [address] [phone] Social History Tobacco Use Types Packs/Day Years [...] 10/26/2022 Lab Oncology Yris Perez MD [address] [address] (Madeleine proctor) 11/03/2022 Oncology Visit Oncology Yris Perez MD [address] [address] (Madeleine proctor) documented as of this encounter Visit Diagnoses Not on filedocumented in this encounter Additional Health Concerns Infection Onset Date Last Indicated Resolved Time 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, 01/08/2017 9 06/08/17, 08/26/17 documented as of this encounter Care Teams Manager Product Design Relationship Specialty Start Date End Date Simon Claros MD PCP - General Internal Medicine 09/22/12 08/20/21 Simon Claros MD PCP - Assigned PCP 06/18/16 01/17/19 [address] [place] [address] Simon Claros MD Assigned PCP 06/18/16 03/01/21 [address] [place] [address] documented as of this encounter
--- OUTSIDE RECORDS SUMMARY | 2022-08-20 14:26 | XMS_ITS | Encounter Summary ---
:1945 Author Organization [place] Address [address] [place] [address] Care Team Providers Name Role Phone Simon Claros MD Primary Care Provider Simon Claros MD Unavailable Simon Claros MD Unavailable Encounter Details Date Type Department Care Team Description 02/02/2018 Office Visit [facility] Simon Claros, Acute idiopathic gout of left foot (Primary Dx); Clinic [place] HINES Trigger finger, acquired; [address] [facility], [address] [facility] Chronic obstructive pulmonary disease, unspecified COPD type (H); [address] Malignant neoplasm of female breast, uns pecified estrogen receptor status, unspecified laterality, unspecified site of breast (H); [place] [address] [place] History of frequent urinary tract infections [phone] [address] Social History Tobacco Use Types Packs/Day Years Used Date Passive Smoke Exposure - Never Smoker Smokeless Tobacco: Never Used Alcohol Use Standard Drinks/Week Comments No 0 (1 standard drink = 0.6 oz pure alcoho l) Sex Assigned at Date Recorded Female 01/27/2022 12:36 PM CDT documented as of this encounter Progress Notes Sara Knight - 02/02/2018 12:15 PM CDT SUBJECTIVE: Darshana Brooks is a 72 year old female who presents to clinic today for the following health issues: The patient presents to the clinic for a followup of pain of the left foot. She states that her symptoms have significantly improved and are controlled with Aleve. A uric acid level was completed on 01/27/2018 which was elevated at 7.9. She has never had a gout attack before but does have family history of gout. The patient presents to the clinic for review of lab results completed on 01/27/2018. She had an elevated LDL of 126 and an elevated total cholesterol of 203. The patient has a history of trigger finger of the right first finger. She reports that she has beenhaving clicking in the finger for the past day. She previously has received a cortisone injection atthe site which helped to relieve symptoms. Problem list and histories reviewed & adjusted, as indicated. Additional history: as documented Current Outpatient Prescriptions Medication Sig Dispense Refill [...] PO) Take 2,000 Units by mouth daily Reviewed and updated as needed this visit by clinical staff Reviewed and updated as needed this visit by Provider ROS: Constitutional, HEENT, cardiovascular, pulmonary, GI, , musculoskeletal, neuro, skin, endocrine and psych systems are negative, except as otherwise noted. This document serves as a record of the services and decisions personally performed and made by GaryL. Hyacinth MD. It was created on his behalf by Sara Knight, a trained medical lead. The creation of this document is based the provider's statements to the medical lead. 02/02/2018 OBJECTIVE: There were no vitals taken for this visit. There is no height or weight on file to calculate BMI. With flexion of the right first finger reoccurrence of clicking noted 25 minutes spent with patient, over 50% time counseling, coordinating care and explaining about nature of the patient's conditions. Diagnostic Test Results: none ASSESSMENT/PLAN: 1. Acute idiopathic gout of left foot Start taking allopurinol once daily. Reviewed foods that can trigger gout attacks. Continue with Aleve as needed for pain. Patient will followup in one month for recheck of uric acid levels. - allopurinol (ZYLOPRIM) 300 MG tablet; Take 1 tablet (300 mg) by mouth daily Add as directd to previous script Dispense: 90 tablet; Refill: 3 2. Trigger finger, acquired Start namrata taping thumb to hand. If symptoms persist, consider another cortisone injection which has previously provided symptom relief. 3. Chronic obstructive pulmonary disease, unspecified COPD type (H) Controlled with albuterol inhaler. 4. Malignant neoplasm of female breast, unspecified estrogen receptor status, unspecified laterality, unspecified site of breast (H) Followed by oncology. Patient is currently taking anastrozole. 5. History of frequent urinary tract infections Followup in one month for recheck of uric acid levels Simon Claros MD [facility] The information in this document, created by the medical lead for me, accurately reflects the services I personally performed and the decisions made by me. I have reviewed and approved this document for accuracy prior to leaving the patient care area. Simon Claros MD 12:32 PM, 02/02/18 documented in this encounter Plan of Treatment Upcoming Encounters Date Type Specialty Care Team Description 10/26/2022 Lab Oncology Yris Perez MD [address] [address] (Wo hitesh) 11/03/2022 Oncology Visit Oncology Yris Perez MD [address] [address] (Wo rk) documented as of this encounter Visit Diagnoses Diagnosis Acute idiopathic gout of left foot - Letty tonya Trigger finger, acquired Trigger finger (acquired) Chronic obstructive pulmonary disease, u nspecified COPD [...] documented as of this encounter Care Teams Communications Administrator Relationship Specialty Start Date End Date Simon Claros MD PCP - General Internal Medicine 09/22/12 08/20/21 Simon Claros MD PCP - Assigned PCP 06/18/16 01/17/19 [address] [place] [phone] Simon Claros MD Assigned PCP 06/18/16 03/01/21 [address] [place] [phone] documented as of this encounter
--- OUTSIDE RECORDS SUMMARY | 2022-08-20 14:26 | XMS_ITS | Encounter Summary ---
:1945 Author Organization [place] Address [address] [facility] [place] [address] Care Team Providers Name Role Phone Simon Claros MD Primary Care Provider Simon Claros MD Unavailable Simon Claros MD Unavailable Reason for Visit Reason Onset Date Comments Lab Result Notice 11/24/2017 UA results Encounter Details Date Type Department Care Team Description 11/24/2017 Telephone [facility] Simon Claros, Lab Re sult Notice ([facility] [place] results ) [address] [facility], [address] [place] [address] [address] [place] [phone] Social History Tobacco Use Types Packs/Day Years Used Date Passive Smoke Exposure - Never Smoker Smokeless Tobacco: Never Used Alcohol Use Standard Drinks/Week Comments No 0 (1 standard drink = 0.6 oz pure alcoho l) Sex Assigned at Date Recorded Female 01/27/2022 12:36 PM CDT documented as of this encounter Miscellaneous Notes Telephone Encounter - Simon Claros MD - 11/24/2017 5:37 PM CST UA report left for me to phone to the patient or her prior to leaving [facility]. Patient had cystoscopy started on Cipro 250 twice daily 5 days ago and noted continued cloudy urine.UA showed pyuria. Called patient and recommended switching antibiotics as it appears that 5 days of Cipro has not improved the UTI. Started Keflex 500 mg 3 times daily with a UC pending. HOME SALES CONSULTANT Telephone Encounter - Donnell Olivas, RN - 11/24/2017 4:35 PM CST Per AV lab staff: 11/24/17 please call spouse Jordin with urology lab results [phone] CTC on file dated 02/03/17 Donnell Olivas, ODESSA HOME SALES CONSULTANT Telephone Encounter - Danielle Salguero - 11/24/2017 3:59 PM CST Patient is leaving for [facility] today 11/24/16. Came in for lab UA and is requesting that if results come in for them to call her Jordin (C2C is on file) to let him know what results there are andif medication has been changed. HOME SALES CONSULTANT documented in this encounter Plan of Treatment Upcoming Encounters Date Type Specialty Care Team Description 10/26/2022 Lab Oncology Yris Perez MD [address] [place] [id number] (Wo rk) 11/03/2022 Oncology Visit Oncology Yris Perez MD [address] [address] (Wo rk) documented as of this encounter Visit Diagnoses Diagnosis Dysuria - Primary documented in this encounter Additional Health Concerns Infection Onset Date Last Indicated Resolved Time 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, 01/08/2017 9 06/08/17, 08/26/17 documented as of this encounter Care Teams Adobe Layer Helper Relationship Specialty Start Date End Date Simon Claros MD PCP - General Internal Medicine 09/22/12 08/20/21 Simon Claros MD PCP - Assigned PCP 06/18/16 01/17/19 [address] [place] [place] [address] Simon Claros MD Assigned PCP 06/18/16 03/01/21 [address] [place] [address] documented as of this encounter
--- OUTSIDE RECORDS SUMMARY | 2022-08-20 14:26 | XMS_ITS | Encounter Summary ---
:1945 Author Organization [place] Address [address] [facility] [place] [address] Care Team Providers Name Role Phone Simon Claros MD Primary Care Provider Simon Claros MD Unavailable Simon Claros MD Unavailable Reason for Visit Reason Onset Date Comments Refill Request 11/02/2018 Encounter Details Date Type Department Care Team Description 11/02/2018 Refill [facility] Urology Paris Galicia RN Refill Request [facility] [place] [phone] (work) [address] [facility] [address] [place] [address] Social History Tobacco Use Types Packs/Day Years [...] Lab Oncology Yris Perez MD [address] [address] (Madeleine proctor) 11/03/2022 Oncology Visit Oncology Yris Perez MD [address] [address] (Madeleine proctor) documented as of this encounter Visit Diagnoses Not on filedocumented in this encounter Additional Health Concerns Infection Onset Date Last Indicated Resolved Time 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, 01/08/2017 9 06/08/17, 08/26/17 documented as of this encounter Care Teams Core Inserter Relationship Specialty Start Date End Date Simon Claros MD PCP - General Internal Medicine 09/22/12 08/20/21 Simon Claros MD PCP - Assigned PCP 06/18/16 01/17/19 [address] [place] [address] Simon Claros MD Assigned PCP 06/18/16 03/01/21 [address] [place] [address] documented as of this encounter
--- OUTSIDE RECORDS SUMMARY | 2022-08-20 14:26 | XMS_ITS | Encounter Summary ---
:1945 Author Organization [facility] Address [address] [facility] [place] [address] Care Team Providers Name Role Phone Simon Claros MD Primary Care Provider Simon Claros MD Unavailable Reason for Referral Diagnostic Imaging Mammo - Closed Specialty Diagnoses / Procedures Referred By Contact Refer red To Contact Radiology. Diagnoses Visit for screening mammogram Simon Claros MD Breast Imaging Procedures MA Screen Bilateral w/Ricardo [address] [place] [address], [address] [place] [address] [place] [address] Referral ID Status Reason Start Date Expiration Date Visits Requ ested Visits Authorized [id number] Closed 12/27/2018 12/27/2019 1 1 Reason for Visit Diagnostic Imaging Mammo - Closed Specialty Diagnoses / Procedures Referred By Contact Refer red To Contact Radiology. Diagnoses Visit for screening mammogram Simon Claros MD Breast Imaging Procedures MA Screen Bilateral w/Ricardo [address] [place] [address], [address] [place] [address] [place] [address] Referral ID Status Reason Start Date Expiration Date Visits Requ ested Visits Authorized [id number] Closed 12/27/2018 12/27/2019 1 1 Encounter Details Date Type Department Care Team Description 01/30/2019 Hospital Encounter [facility] Simon Claros Echo lugo for screening Rocco Sr MD mammogram Center [address] [facility] [address] [facility], [address] [place] [address] [phone] Social History Tobacco Use Types Packs/Day Years [...] End Date Cholecalciferol (VITAMIN Take 2,000 Units 0 D3 PO) by mouth daily loratadine (CLARITIN) 10 Take 10 mg by 0 MG tablet mouth allopurinol (ZYLOPRIM) Take 1 tablet (300 90 tablet 3 02/0203/02/2019 300 MG tabletIndications: mg) by mouth daily 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 previous script ANASTROZOLE PO Take 1 mg by mouth 0 daily ESTRADIOL PO 0 09/26/2020 POLYETH GLYC-PROPYLENE 0 GLYC NA PROAIR HFA 108 (90 Base) INHALE 2 PUFFS 4 8.5 Inhaler 5 06/0 06/201802/05/2020 MCG/ACT TIMES A DAY inhalerIndications: NEEDED Chronic obstructive pulmonary disease, unspecified COPD type (H) documented as of this encounter Plan of Treatment Upcoming Encounters Date Type Specialty Care Team Description 10/26/2022 Lab Oncology Yris Perez MD [address] [facility] [address] [place] [address] (Madeleine proctor) 11/03/2022 Oncology Visit Oncology Yris Perez MD [address] [facility] [address] [place] [address] (Madeleine proctor) documented as of this encounter Procedures Procedure Name Priority Date/Time Associated Diagnosis Comme nts MA SCREENING Routine 01/30/2019 11:02 AM Visit for screening R esults for this BILATERAL W/ RICARDO CDT mammogram procedure are in the results section. documented in this encounter Results MA Screen Bilateral w/Ricardo (01/30/2019 11:02 AM CDT) Anatomical Region Laterality Modality Breast Bilateral Mammography Specimen (Source) Anatomical Location Collection Method / Collectio n Time Received Time / Laterality Volume Impressions 01/30/2019 1:31 PM CDT IMPRESSION: BI-RADS CATEGORY: 2 - Benign. RECOMMENDED FOLLOW-UP: Annual Mammograph y. Recommend routine annual screening mammo graphy. Exam results letter mailed to patient. STEFFANIE RAYO MD Narrative 01/30/2019 1:31 PM CDT SCREENING MAMMOGRAM, BILATERAL, DIGITAL w/CAD AND TOMOSYNTHESIS - 01/30/2019 11:02 AM. BREAST SYMPTOMS: No current breast compl aints. COMPARISON: ??01/27/2018, 01/13/2017, , 11/28/2014. BREAST DENSITY: Heterogeneously dense. COMMENTS: No findings of suspicion for m alignancy. ?? The patient has had a prior right lumpectomy. Procedure Note Steffanie Rayo MD - 01/30/2019 SCREENING MAMMOGRAM, BILATERAL, DIGITAL w/CAD AND TOMOSYNTHESIS - 01/30/2019 11:02 AM. BREAST SYMPTOMS: No current breast compl aints. COMPARISON: 01/27/2018, 01/13/2017, 12/17, 11/28/2014. BREAST DENSITY: Heterogeneously dense. COMMENTS: No findings of suspicion for m alignancy. The patient has had a prior right lumpectomy. IMPRESSION: BI-RADS CATEGORY: 2 - Benign . RECOMMENDED FOLLOW-UP: Annual Mammograph y. Recommend routine annual screening mammo graphy. Exam results letter mailed to patient. STEFFANIE RAYO MD Simon Claros MD IMG MAMMOGRAPHY ORDERABLES documented in this encounter Visit Diagnoses Diagnosis Visit for screening mammogram Other screening mammogram documented in this encounter Additional Health Concerns Infection Onset Date Last Indicated Resolved Time 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, 01/08/2017 9 06/08/17, 08/26/17 documented as of this encounter Care Teams [facility] Relationship Specialty Start Date End Date Simon Claros MD PCP - General Internal Medicine 09/22/12 08/20/21 Simon Claros MD Assigned PCP 06/18/16 03/01/21 [address] [place] [address] [place] [address] documented as of this encounter
--- OUTSIDE RECORDS SUMMARY | 2022-08-20 14:26 | XMS_ITS | Encounter Summary ---
:1945 Author Organization [place] Address [address] [place] [address] Care Team Providers Name Role Phone Simon Claros MD Primary Care Provider Simon Claros MD Unavailable Reason for Referral - Closed Specialty Diagnoses / Procedures Referred By Contact Refer red To Contact Diagnoses Hyperlipidemia LDL goal <130 Simon Claros MD Procedures TD PRESERV FREE, IM (7+ YRS) [address] [place] [address] [place] [address] Referral ID Status Reason Start Date Expiration Date Visits Requ ested Visits Authorized [id number] Closed 01/30/2019 01/30/2020 1 1 Reason for Visit Reason Comments Wellness Visit Encounter Details Date Type Department Care Team Description 01/30/2019 Office Visit [facility] Simon Claros, Hyperl ipidemia LDL goal <130 (Primary Dx); Clinic [facility]ES Vitamin D deficiency; [address] Malignant neoplasm of female breast, unspecified estrogen receptor status, unspecified laterality, unspecified site of breast (H); [facility] [address] Benign essential hypertension; [place] [address] [place] Fatigue, unspecified type; [phone] [id number] Chronic obstructive pulmonary disease, u nspecified COPD type (H); [phone] Nonspecific fin ding on examination of urine (Work) Social History Tobacco Use Types Packs/Day Years Used Date Passive Smoke Exposure - Never Smoker Smokeless Tobacco: Never Used Alcohol Use Standard Drinks/Week Comments No 0 (1 standard drink = 0.6 oz pure alcoho l) Sex Assigned at Date Recorded Female 01/27/2022 12:36 PM CDT documented as of this encounter Last Filed Vital Signs Vital Sign Reading Time Taken Comments Blood Pressure 130/74 01/30/2019 9:05 AM CDT Pulse 75 01/30/2019 9:05 AM CDT Temperature 36.1 ??C (97 ??F) 01/30/2019 9:05 AM CDT Respiratory Rate - - Oxygen Saturation 96% 01/30/2019 9:05 AM CDT Inhaled Oxygen Concentration - - Weight 66.7 kg (147 lb) 01/30/2019 9:05 AM CDT Height 167.6 cm (5' 6) 01/30/2019 9:05 AM CDT Body Mass Index 23.73 01/30/2019 9:05 AM CDT documented in this encounter Patient Instructions Patient InstructionsCharmaine Sam, HERBIE - 01/30/2019 9:00 AM CDT Preventive Health Recommendations See your [...] 02/11/2019 documented in this encounter Progress Notes Simon Claros MD - 01/30/2019 9:00 AM CDT SUBJECTIVE: Darshana Brooks is a 73 year old female who presents for Preventive Visit. 1 week history of upper respiratory infections with associated excessive sinus drainage which has moved into her chest and is associated with coughing of yellow white sputum. She has had associated wheezing however she has no feverishness dyspnea or chest pain. Her wheezing has improved with the use of her rescue inhaler. Breast cancer Doing well without signs of recurrence on her current chemotherapy Are you in the first 12 months of your Medicare coverage? No Annual Wellness Visit In general, how would you rate your overall health? Good Frequency of exercise: 1 day/week Duration of exercise: 15-30 minutes Do you usually eat at least 4 servings of fruit and vegetables a day, include whole grains & fiber and avoid regularly eating high fat or junk foods? Yes Taking medications regularly: Yes Medication side effects: Not applicable Ability to successfully perform activities of daily living: No assistance needed Home Safety: Lack of grab bars in the bathroom Hearing Impairment: No hearing concerns In the past 6 months, have you been bothered by leaking of urine? Yes In general, how would you rate your overall mental or emotional health? Good PHQ-2 Total Score: 0 Do you feel safe in your environment? Yes Do you have a Health Care Directive? Yes: Patient states has Advance Directive and will bring in a copy to clinic. Fall risk Cognitive Screening 1) Repeat 3 items (Leader, Season, Table) 2) Clock draw: 3) 3 item recall: Results: 3 items recalled: COGNITIVE IMPAIRMENT LESS LIKELY Mini-CogTM Copyright Jory Arechiga. Licensed by the author for use in [facility]; reprintedwith permission (jorge@[facility]). All rights reserved. Do you have sleep apnea, excessive snoring or daytime drowsiness?: yes Reviewed and updated as needed this visit by clinical staff Reviewed and updated as needed this visit by Provider Social History Tobacco Use ??? Smoking status: Passive Smoke Exposure - Never Smoker ??? Smokeless tobacco: Never Used Substance Use Topics ??? Alcohol use: No Alcohol/week: 0.0 oz Alcohol Use 01/30/2019 If you drink alcohol do you typically have greater than 3 drinks per day OR greater than 7 drinks per week? Not Applicable Current providers sharing in care for this patient include: Patient Care Team: Simon Claros MD as PCP - General (Internal Medicine) Simon Claros MD as Assigned PCP The following health maintenance items are reviewed in Epic and correct as of today: Health Maintenance Topic Date Due ??? COPD ACTION PLAN Q1 YR 1945 ??? HEPATITIS C SCREENING 1963 ??? ZOSTER IMMUNIZATION (1 of 2) 1997 ??? INFLUENZA VACCINE (1) 07/16/2018 ??? MEDICARE ANNUAL WELLNESS VISIT 01/27/2019 ??? FALL RISK ASSESSMENT 01/27/2019 ??? DTAP/TDAP/TD IMMUNIZATION (3 - Td) 02/11/2019 ??? MAMMO SCREEN Q2 YR (SYSTEM ASSIGNED) 01/28/2020 ??? PHQ-2 Q1 YR 01/31/2020 ??? ADVANCE DIRECTIVE PLANNING Q5 YRS 06/02/2021 ??? LIPID SCREEN Q5 YR FEMALE (SYSTEM ASSIGNED) 01/27/2023 ??? COLON CANCER SCREEN (SYSTEM ASSIGNED) 06/03/2027 ??? SPIROMETRY ONETIME Completed ??? DEXA SCAN SCREENING (SYSTEM ASSIGNED) Completed ??? IPV IMMUNIZATION Aged Out ??? MENINGITIS IMMUNIZATION Aged Out Labs reviewed in [facility] Patient Active Problem List Diagnosis ??? Right [...] Vitamin D deficiency ??? Trigger finger, acquired Past Surgical History: Procedure Laterality Date ??? [...] Iggy Dodd MD; Location: [facility] OR ??? MEMBERSHIP COORDINATOR SURGERY hysterectomy ??? LUMPECTOMY BREAST WITH SEED [...] Refill ??? allopurinol (ZYLOPRIM) 300 MG tablet Take 1 tablet (300 mg) by mouth daily Add as directd to previous script 90 tablet 3 ??? ANASTROZOLE PO Take 1 mg by mouth daily ??? Cholecalciferol (VITAMIN D3 PO) Take 2,000 Units by mouth daily ??? ESTRADIOL PO ??? loratadine (CLARITIN) 10 MG tablet Take 10 mg by mouth ??? POLYETH GLYC-PROPYLENE GLYC NA ??? PROAIR HFA 108 (90 Base) MCG/ACT [...] INTEGUMENTARY/SKIN: NEGATIVE for worrisome rashes, moles or lesions, reevaluate tags on her neck andback EYES: NEGATIVE for vision changes or irritation In need of a vision check ENT/MOUTH: NEGATIVE for ear, mouth and throat problems RESP: NEGATIVE for significant cough or SOB BREAST: NEGATIVE for masses, tenderness or discharge CV: NEGATIVE for chest pain, palpitations or peripheral edema No regular exercise or activity routine just her busy day-to-day lifestyle GI: NEGATIVE for nausea, abdominal pain, heartburn, or change in bowel habits : NEGATIVE for frequency, dysuria, or hematuria MUSCULOSKELETAL: NEGATIVE for significant arthralgias or myalgia except for her right thigh and postsurgical hip. Right knee ache? Associated with her right hip pain NEURO: NEGATIVE for weakness, dizziness or paresthesias ENDOCRINE: NEGATIVE for temperature intolerance, skin/hair changes HEME: NEGATIVE for bleeding problems PSYCHIATRIC: NEGATIVE for changes in mood or affect OBJECTIVE: There were no vitals taken for this visit. Estimated body mass index is 24.05 kg/m?? as calculated from the following: Height as of 01/27/18: 1.676 m (5' 6). Weight as of 01/27/18: 67.6 kg (149 lb). BP 130/74 (BP Location: Left arm, Patient Position: Chair, Cuff Size: Adult Large) Pulse 75 Temp97 ??F (36.1 ??C) (Oral) Ht 1.676 m (5' 6) Wt 66.7 kg (147 lb) SpO2 96% ? No BMI 23.73 kg/m?? Physical Exam HEENT funduscopic exam was within normal limits tympanic membranes are normal nose and throat were clear Neck was supple without adenopathy thyromegaly or masses Chest clear to auscultation and percussion Cardiovascular S1 and S2 are physiologic without murmurs or gallop rhythm was regular Abdomen bowel sounds are normal there are no palpable masses organomegaly or tenderness Breasts showed no palpable masses, lymph nodes were negative Extremities were nontender without any edema Deep tendon reflexes were intact Skin was clear Pulses were two over 4+ bilaterally symmetrical throughout ASSESSMENT / PLAN: Darshana was seen today for wellness visit. Diagnoses and all orders for this visit: Hyperlipidemia LDL goal <130 - Lipid panel reflex to direct LDL Fasting - TD PRESERV FREE, IM (7+ YRS) - Urine Microscopic Vitamin D deficiency Malignant neoplasm of female breast, unspecified estrogen receptor status, unspecified laterality, unspecified site of breast (H) Benign essential hypertension - UA reflex to Microscopic and Culture - CBC with platelets - Comprehensive metabolic panel Fatigue, unspecified type - TSH with free T4 reflex Chronic obstructive pulmonary disease, unspecified COPD type (H) - Spirometry, Breathing Capacity: Normal Order, Clinic Performed Nonspecific finding on examination of urine - Urine Culture Aerobic Bacterial End of Life Planning: Patient currently has an advanced directive: Yes. Practitioner is supportive of decision. COUNSELING: Reviewed preventive health counseling, as reflected in patient instructions Regular exercise Healthy diet/nutrition BP Readings from Last 1 Encounters: 01/27/18 133/74 Estimated body mass index is 24.05 kg/m?? as calculated from the following: Height as of 01/27/18: 1.676 m (5' 6). Weight as of 01/27/18: 67.6 kg (149 lb). reports that she is a non-smoker but has been exposed to tobacco smoke. she has never used smokeless tobacco. Appropriate preventive [...] Preventive Guidelines Dietary Guidelines for Americans, 2009 The [employer] MyPlate ASA Prophylaxis Lung CA Screening Simon Claros MD [facility] documented in this encounter Nursing Notes Charmaine Sam, PYROMETER TEMPERATURE REGULATOR - 01/30/2019 9:00 AM CDT Screening Questionnaire for Adult Immunization Are you sick today? No Do you have allergies to medications, food, a vaccine component or latex? No Have you ever had a serious reaction after receiving a vaccination? No Do you have a long-term health problem with heart disease, lung disease, asthma, kidney disease, metabolic disease (e.g. diabetes), anemia, or other blood disorder? No Do you have cancer, leukemia, HIV/AIDS, or any other immune system problem? No In the past 3 months, have you taken medications that affect your immune system, such as prednisone,other steroids, or anticancer drugs; drugs for the treatment of rheumatoid arthritis, Crohn???s disease, or psoriasis; or have you had radiation treatments? No Have you had a seizure, or a brain or other nervous system problem? No During the past year, have you received a transfusion of blood or blood products, or been given immune (gamma) globulin or antiviral drug? No For women: Are you or is there a chance you could become during the next month? No Have you received any vaccinations in the past 4 weeks? No Immunization questionnaire answers were all negative. Per orders of Dr. Claros, injection of TD given by Charmaine Sam. Patient instructed to remain in clinic for 15 minutes afterwards, and to report any adverse reaction to me immediately. Screening performed by Charmaine Sam on 01/30/2019 at 11:02 AM. Due to injection administration, patient instructed to remain in clinic for 15 minutes afterwards, and to report any adverse reaction to me immediately. documented in this encounter Plan of Treatment Upcoming Encounters Date Type Specialty Care Team Description 10/26/2022 Lab Oncology Yris Perez MD [address] [place] [address] [phone] (Wo rk) 11/03/2022 Oncology Visit Oncology Yris Perez MD [address] [place] [address] [phone] (Wo rk) documented as of this encounter Procedures Procedure Name Priority Date/Time Associated Diagnosis Comme nts URINE MICROSCOPIC Routine 01/30/2019 10:24 Hyperlipidemia LDL Results for this AM CDT goal <130 procedure are i n the results section. UA MACROSCOPIC WITH Routine 01/30/2019 10:24 Benign essential Results for this REFLEX TO MICROSCOPIC AM CDT hypertension proced ure are in AND CULTURE the results section. TSH WITH FREE T4 Routine 01/30/2019 10:24 Fatigue, unspecified Results for this REFLEX AM CDT type procedure are i n the results section. LIPID REFLEX TO Routine 01/30/2019 10:24 Hyperlipidemia LDL Re sults for this DIRECT LDL PANEL AM CDT goal <130 procedure a re in the results section. COMPREHENSIVE Routine 01/30/2019 10:24 Benign essential Result s for this METABOLIC PANEL AM CDT hypertension procedure ar e in the results section. URINE CULTURE Routine 01/30/2019 10:24 Nonspecific finding on Results for this AM CDT examination of urine procedu re are in the results section. CBC WITH PLATELETS Routine 01/30/2019 10:24 Benign essential R esults for this AM CDT hypertension procedure are i n the results section. HC SPIROMETRY, BREATH Routine 01/30/2019 10:11 Chronic obstruc tive Results for this CAPACITY AM CDT pulmonary disease, procedure are in unspecified COPD type the re sults (H) section. documented in this encounter Results (ABNORMAL) Urine Culture Aerobic Bacterial (01/30/2019 10:24 AM CDT) Component Value Ref Test Analysis Performed At [facility] Method Time Signature Specimen Midstream Urine INFECTIOUS Description DISEASE DIAGNOSTIC LABORATORY Culture Micro >100,000 colonies/mL 02/01/2019 INFE CTIOUS Coagulase negative Staphylococcus 7:06 A M CDT DISEASE (A) DIAGNOSTIC LABORATORY Specimen (Source) Anatomical Collection Method Collection Time Re ceived Time Location / / Volume Laterality Examination of 01/30/2019 10:24 9 midstream urine AM CDT 11:05 AM CDT specimen (procedure) Organism Antibiotic Method Susceptibility Coagulase negative Ciprofloxacin VERONIKA <=0.5 ug/mL: Susceptible Staphylococcus Coagulase negative Gentamicin VERONIKA <=0.5 ug/mL: Susceptible Staphylococcus Coagulase negative Levofloxacin VERONIKA <=0.12 ug/mL: Susceptible Staphylococcus Coagulase negative Nitrofurantoin VERONIKA <=16 ug/mL: S usceptible Staphylococcus Coagulase negative Oxacillin VERONIKA <=0.25 ug/mL: Susceptible Staphylococcus Coagulase negative Penicillin VERONIKA 0.25 ug/mL: R esistant Staphylococcus Coagulase negative Tetracycline VERONIKA <=1 ug/mL: Buenrostro sceptible Staphylococcus Coagulase negative Vancomycin VERONIKA 1 ug/mL: Susc eptible Staphylococcus Coagulase negative Trimethoprim/Sulfamethoxaz VERONIKA u g/mL: Susceptible Staphylococcus ole Simon Claros MD LAB - MICRO GENERAL ORDERABL ES Performing Organization Address City/State/ZIP Code Phon e Number INFECTIOUS DISEASES [address] [place] [address] DIAGNOSTIC LABORATORY, [facility] INFECTIOUS DISEASE [address] [place] [address], [facility] DIAGNOSTIC LABORATORY (ABNORMAL) Urine Microscopic (01/30/2019 10:24 AM CDT) [facility] Method Time Signature WBC Urine 50-100 (A) OTO5^0 - 01/30/2019 [facility] 5 /HPF 11:03 AM CDT [facility] [place] RBC Urine 2-5 (A) OTO2^O - 01/30/2019 [facility] 2 /HPF 11:03 AM CDT [facility] [place] Hyaline Casts O - 2 OTO2^O - 01/30/2019 [facility] 2 /LPF 11:03 AM CDT [facility] [place] Squamous Moderate (A) FEW^Few 01/30/2019 [facility] Epithelial /LPF 11:03 AM CDT [facility] [place] /LPF Urine Bacteria Urine Many (A) NEG^Negat 01/30/2019 [facility] dee /HPF 11:03 AM CDT [facility] [place] Specimen Anatomical Collection Method Collection Time Receive d Time (Source) Location / / Volume Laterality 01/30/2019 10:24 01/30/2019 AM CDT 10:25 AM CDT Simon Claros MD LAB - URINE ORDERABLES Performing Organization Address City/[facility]/ZIP Code Phon e Number [facility] [address] [place] [address] TSH with free T4 reflex (01/30/2019 10:24 AM CDT) athologist Signature TSH 1.26 0.40 - 4.00 01/30/2019 [facility] mU/L 2:41 PM CDT [facility] Specimen Anatomical Collection Method Collection Time Receive d Time (Source) Location / / Volume Laterality Blood specimen 01/30/2019 10:24 9 (specimen) AM CDT 10:25 AM CDT Simon Claros MD LAB - BLOOD ORDERABLES Performing Organization Address City/State/ZIP Code Phon e Number [facility] [address] [place] [address] (ABNORMAL) Lipid panel reflex to direct LDL Fasting (01/30/2019 10:24 AM CDT) [facility] Method Time Signature Cholesterol 182 <200 01/30/2019 [facility] mg/dL 2:33 PM CDT [facility] Triglycerides 97 <150 01/30/2019 [facility] mg/dL 2:35 PM CDT [facility] HDL Cholesterol 43 (L) >49 mg/dL 01/30/2019 [facility] 2:34 PM CDT [facility] LDL Cholesterol 120 (H) <100 01/30/2019 [facility] Calculated mg/dL 2:35 PM CDT [facility] Comment: Above desirable: ??100-129 mg/dl Borderline High: ??130-159 mg/dL High: ? 160-189 mg/dL Very high: ? >189 mg/dl Non HDL Cholesterol 139 (H) <130 mg/dL 01/30/2019 2:34 PM [facility] Comment: Above Desirable: ??130-159 mg/dl Borderline high: ??160-189 mg/dl High: ? 190-219 mg/dl Very high: ? >219 mg/dl Specimen Anatomical Collection Method Collection Time Receive d Time (Source) Location / / Volume Laterality Blood specimen 01/30/2019 10:24 9 (specimen) AM CDT 10:25 AM CDT Simon Claros MD LAB - BLOOD ORDERABLES Performing Organization Address City/State/ZIP Code Phon e Number [facility] [address] [place] [address] (ABNORMAL) Comprehensive metabolic panel (01/30/2019 10:24 AM CDT) [facility] Method Time Signature Sodium 139 133 - 144 01/30/2019 [place] mmol/L 2:20 PM CDT [facility] Potassium 4.2 3.4 - 5.3 01/30/2019 [place] mmol/L 2:20 PM CDT [facility] Chloride 107 94 - 109 01/30/2019 [place] mmol/L 2:20 PM CDT [facility] Carbon Dioxide 26 20 - 32 01/30/2019 [place] mmol/L 2:33 PM CDT [facility] Anion Gap 6 3 - 14 01/30/2019 [place] mmol/L 2:33 PM CDT [facility] Glucose 103 (H) 70 - 99 01/30/2019 [facility] mg/dL 2:33 PM [facility] Urea Nitrogen 15 7 - 30 01/30/2019 [facility] mg/dL 2:33 PM [facility] Creatinine 0.81 0.52 - 01/30/2019 [facility] 1.04 mg/dL 2:33 PM [facility] GFR Estimate 73 >60 01/30/2019 [facility] mL/min/{1. 2:33 PM [facility] 73_m2} [facility] Comment: Non GFR Calc Starting 11/01/2018, serum creatinine ba sed estimated GFR (eGFR) will be calculated using the Chronic Kidney Dise [facility] Epidemiology Collaboration (CKD-EPI) equation. GFR Estimate If 85 >60 mL/min/{1.73_m2} 01/30/2019 2: 33 PM [facility] Comment: GFR Calc Starting 11/01/2018, serum creatinine ba sed estimated GFR (eGFR) will be calculated using the Chronic Kidney Dise [facility] Epidemiology Collaboration (CKD-EPI) equation. Calcium 8.5 8.5 - 10.1 01/30/2019 2:33 PM [facility] mg/dL [facility] Bilirubin Total 0.4 0.2 - 1.3 mg/dL 01/30/2019 2:33 PM [facility] Albumin 3.8 3.4 - 5.0 g/dL 01/30/2019 2:33 PM [facility] Protein Total 6.9 6.8 - 8.8 g/dL 01/30/2019 2:33 PM [facility] Alkaline Phosphatase 89 40 - 150 U/L 01/30/2019 2:33 PM [facility] ALT 43 0 - 50 U/L 01/30/2019 2:33 PM [facility] AST 27 0 - 45 U/L 01/30/2019 2:33 PM [facility] Specimen Anatomical Collection Method Collection Time Receive d Time (Source) Location / / Volume Laterality Blood specimen 01/30/2019 10:24 9 (specimen) AM CDT 10:25 AM CDT Simon Claros MD LAB - BLOOD ORDERABLES Performing Organization Address City/State/ZIP Code Phon e Number [facility] [address] [place] [address] CBC with platelets (01/30/2019 10:24 AM CDT) P athologist Signature WBC 6.6 4.0 - 11.0 01/30/2019 [facility] 10e9/L 10:32 AM CDT [facility] RBC Count 4.57 3.8 - 5.2 01/30/2019 [facility] 10e12/L 10:32 AM CDT [facility] [place] Hemoglobin 15.0 11.7 - 01/30/2019 [facility] 15.7 g/dL 10:32 AM CDT [facility] Hematocrit 44.6 35.0 - 01/30/2019 [facility] 47.0 % 10:32 AM CDT [facility] [place] MCV 98 78 - 100 01/30/2019 [facility] fl 10:32 AM CDT [facility] [place] MCH 32.8 26.5 - 01/30/2019 [facility] 33.0 pg 10:32 AM CDT [facility] [place] MCHC 33.6 31.5 - 01/30/2019 [facility] 36.5 g/dL 10:32 AM CDT [facility] [place] RDW 14.0 10.0 - 01/30/2019 [facility] 15.0 % 10:32 AM CDT [facility] [place] Platelet Count 231 150 - 450 01/30/2019 [facility] 10e9/L 10:32 AM CDT [facility] Specimen Anatomical Collection Method Collection Time Receive d Time (Source) Location / / Volume Laterality Blood specimen 01/30/2019 10:24 9 (specimen) AM CDT 10:25 AM CDT Simon Claros MD LAB - BLOOD ORDERABLES Performing Organization Address City/State/ZIP Code Phon e Number [facility] [address] [place] [address] (ABNORMAL) UA reflex to Microscopic and Culture (01/30/2019 10:24 AM CDT) Patholo gist Method Time Signature Color Urine Yellow 01/30/2019 [facility] 11:03 AM [facility]INICS [facility] [place] Appearance Urine Clear 01/30/2019 [facility] 11:03 AM [facility] [place] Glucose Urine Negative NEG^Negat 01/30/2019 [facility] dee mg/dL 11:03 AM [facility]INICS [facility] [place] Bilirubin Urine Negative NEG^Negat 01/30/2019 [facility] 11:03 AM [facility] [place] Ketones Urine Negative NEG^Negat 01/30/2019 [facility] dee mg/dL 11:03 AM [facility] [place] Specific [place] 1.020 1.003 - 01/30/2019 [facility] Urine 1.035 11:03 AM [facility] [place] Blood Urine Trace (A) NEG^Negat 01/30/2019 [facility] dee 11:03 AM [facility] [place] pH Urine 6.5 5.0 - 7.0 01/30/2019 [facility] pH 11:03 AM [facility] [place] Protein Albumin Negative NEG^Negat 01/30/2019 [facility] Urine dee mg/dL 11:03 AM [facility] [place] Urobilinogen 0.2 0.2 - 1.0 01/30/2019 [facility] Urine EU/dL 11:03 AM [facility] [place] Nitrite Urine Negative NEG^Negat 01/30/2019 [facility] dee 11:03 AM [facility] [place] Leukocyte Trace (A) NEG^Negat 01/30/2019 [facility] Esterase Urine dee 11:03 AM [facility] [place] Source Midstream 01/30/2019 [facility] Urine 10:25 AM [facility] [place] Specimen (Source) Anatomical Collection Method Collection Time Re ceived Time Location / / Volume Laterality Examination of 01/30/2019 10:24 9 midstream urine AM CDT 10:25 AM CDT specimen (procedure) Simon Claros MD LAB - URINE ORDERABLES Performing Organization Address City/State/ZIP Code Phon e Number [facility] [place] [address] [place] [address] Spirometry, Breathing Capacity: Normal Order, Clinic Performed (01/30/2019 10:11 AM CDT) P athologist Signature FEV-1 FVC FEV1/FVC FEF 25/75 Narrative This result has an attachment that is no t available. Simon Claros MD PROCEDURES documented in this encounter Visit Diagnoses Diagnosis Hyperlipidemia LDL goal <130 - Primary Other and unspecified hyperlipidemia Vitamin D deficiency Unspecified vitamin D deficiency Malignant neoplasm of female breast, uns pecified estrogen receptor status, unspecified laterality, unspecified site of breast (H) Benign essential hypertension Essential hypertension, benign Fatigue, unspecified type Chronic obstructive pulmonary disease, u nspecified COPD type (H) Nonspecific finding on examination of ur ine Other nonspecific finding on examination of urine documented in this encounter Additional Health Concerns Infection Onset Date Last Indicated Resolved Time 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
--- OUTSIDE RECORDS SUMMARY | 2022-08-20 14:27 | XMS_ITS | Encounter Summary ---
:1945 Author Organization [facility] Address [address] [place] [address] Care Team Providers Name Role Phone Simon Claros MD Primary Care Provider Simon Claros MD Unavailable Simon Claros MD Unavailable Reason for Visit (Routine) - Closed Specialty Diagnoses / Procedures Referred By Contact Refer red To Contact Radiology / Radiology. Diagnoses epic order, sb Dav Rh Ct Scan [facility] Procedures CT ABDOMEN PELVIS [address] [place] [address] Phone: Fax: Referral ID Status Reason Start Date Expiration Date Visits Requ ested Visits Authorized [id number] Closed 10/14/2017 10/14/2018 1 1 Encounter Details Date Type Department Care Team Description 11/12/2017 Hospital Encounter [facility] Iggy Dodd , Dysuria [facility] [address] [employer] [facility] [address] [place] [id number] [phone] Social History Tobacco Use Types Packs/Day Years [...] 10 mg by 0 MG tablet mouth albuterol (PROAIR Inhale 2-4 puffs 0 0 04/20/2018 HFA/PROVENTIL HFA/VENTOLIN into the lungs as HFA) 108 (90 BASE) MCG/ACT needed Inhaler ANASTROZOLE PO Take 1 mg by mouth 0 daily nitroFURantoin, Take 1 capsule 30 capsule 3 09/08/201712/06 macrocrystal-monohydrate, (100 mg) by mouth (MACROBID) 100 MG daily capsuleIndications: Dysuria documented as of this encounter Plan of Treatment Upcoming Encounters Date Type Specialty Care Team Description 10/26/2022 Lab Oncology Yris Perez MD [address] [phone] (Wo rk) 11/03/2022 Oncology Visit Oncology Yris Perez MD [address] [phone] (Wo rk) documented as of this encounter Procedures Procedure Name Priority Date/Time Associated Comments Diagnosis CT ABDOMEN PELVIS Routine 11/12/2017 9:24 AM Dysuria Resu lts for this W/O & W CONTRAST ELECTION CLERK procedure a re in the results section. ISTAT CREATININE Routine 11/12/2017 9:03 AM Dysuria Resul ts for this POCT ELECTION CLERK procedure are i n the results section. documented in this encounter Results CT Abdomen Pelvis w/o & w Contrast (11/12/2017 9:24 AM ELECTION CLERK) Anatomical Region Laterality Modality Abdomen/Pelvis, SUBRAD CT BODY, UMP CT ABDOMEN PELVIS, Computed Tomography RAD CT Specimen (Source) Anatomical Location Collection Method / Collectio n Time Received Time / Laterality Volume Impressions 11/12/2017 11:01 AM ELECTION CLERK IMPRESSION: 1. No acute findings. 2. Duplicated right collecting system. 3. Small, elongated diverticular outpouc bhaskar along the right posterolateral aspect of the urinary ke dder. 4. Colonic diverticulosis. 5. Fatty infiltration of the liver. ED ZHENG MD Narrative 11/12/2017 11:[address] ABDOMEN AND PELVIS WITHOUT AND WITH CONTRAST ??11/12/2017 9:24 AM HISTORY: Breast cancer, UTIs, dysuria. TECHNIQUE: Volumetric acquisition throug h abdomen and pelvis with ??IV contrast. ??100 mL Isovue-370 Radiation dose for this scan was reduced using automated exposure control, adjust ment of the mA and/or kV according to patient size, or iterative reconstruction technique. COMPARISON: None. FINDINGS: Precontrast images demonstrate no urinary stones or hydronephrosis. Following contrast there is a small benign cyst in the right hepatic lobe. Diffuse fatty infilt ration of the liver. Gallbladder, spleen, pancreas, adrenal g lands and kidneys demonstrate no worrisome findings. Tiny hypodense le jorje right mid kidney is too small to characterize, though likely a t iny cyst. No suspicious renal masses. Duplicated right collecting syst em to the level of the urinary bladder. Distal ureters are not optimall y seen due to artifact from right hip prosthesis. There is a small r ight-sided posterolateral bladder diverticular outpouching. This i s best seen on series 6, image 83. Bladder is otherwise negative. Uterus is absent. No suspicious pelvic m asses. Colonic diverticulosis without diverticulitis. No bowel obstruc tion, ascites or other acute findings. No destructive bone lesions. Procedure Note Ed Zheng MD - 11/12/2017F ormatting of this note might be different from the original. CT ABDOMEN AND PELVIS WITHOUT AND WITH C ONTRAST 11/12/2017 9:24 AM HISTORY: Breast cancer, UTIs, dysuria. TECHNIQUE: Volumetric acquisition throug h abdomen and pelvis with IV contrast. 100 mL Isovue-370 Radiation do se for this scan was reduced using automated exposure control, adjust ment of the mA and/or kV according to patient size, or iterative reconstruction technique. COMPARISON: None. FINDINGS: Precontrast images demonstrate no urinary stones or hydronephrosis. Following contrast there is a small benign cyst in the right hepatic lobe. Diffuse fatty infilt ration of the liver. Gallbladder, spleen, pancreas, adrenal g lands and kidneys demonstrate no worrisome findings. Tiny hypodense le jorje right mid kidney is too small to characterize, though likely a t iny cyst. No suspicious renal masses. Duplicated right collecting syst em to the level of the urinary bladder. Distal ureters are not optimall y seen due to artifact from right hip prosthesis. There is a small r ight-sided posterolateral bladder diverticular outpouching. This i s best seen on series 6, image 83. Bladder is otherwise negative. Uterus is absent. No suspicious pelvic m asses. Colonic diverticulosis without diverticulitis. No bowel obstruc tion, ascites or other acute findings. No destructive bone lesions. IMPRESSION: 1. No acute findings. 2. Duplicated right collecting system. 3. Small, elongated diverticular outpouc bhaskar along the right posterolateral aspect of the urinary ke dder. 4. Colonic diverticulosis. 5. Fatty infiltration of the liver. ED ZHENG MD Iggy Dodd MD IMG CT ORDERABLES (ABNORMAL) Creatinine POCT (11/12/2017 9:03 AM ELECTION CLERK) P athologist Signature Creatinine 1.0 0.52 - 11/12/2017 POINT OF CARE 1.04 mg/dL 9:11 AM ELECTION CLERK TEST, HANDHELD METER GFR Estimate 55 (L) >60 11/12/2017 POINT OF CARE mL/min/1.7 9:11 AM ELECTION CLERK TEST, HANDHELD m2 METER GFR Estimate If 66 >60 11/12/2017 POINT OF CARE Black mL/min/1.7 9:11 AM ELECTION CLERK TEST, HANDHELD m2 METER Specimen Anatomical Collection Method Collection Time Receive d Time (Source) Location / / Volume Laterality 11/12/2017 9:03 AM 7 9:10 ELECTION CLERK AM ELECTION CLERK Iggy Dodd MD [facility] POCT Performing Organization Address City/State/ZIP Code Phon e Number F[facility] POINT OF CARE TEST, HANDHELD METER POINT OF CARE TEST, HANDHELD METER documented in this encounter Visit Diagnoses Diagnosis Dysuria documented in this encounter Administered Medications Inactive Administered Medications - up to 3 most recent administrations Medication Order MAR Action Action Date Dose Rate Site 0.9% sodium chloride BOLUS New Bag 11/12/2017 9:02 AM ELECTION CLERK 65 mLs Intravenous, 1,000 mL, ONCE, On Wed11/12/17 at 0915, For 1 dose iopamidol (ISOVUE-370) solution 500 mL Given 11/12/2017 9:02 AM ELECTION CLERK 100 mLs 500 mL, Intravenous, ONCE, On Wed11/12/17 at 0915, For 1 dose documented in this encounter Additional Health Concerns Infection Onset Date Last Indicated Resolved Time 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, 01/08/2017 9 06/08/17, 08/26/17 documented as of this encounter Care Teams Market Survey Representative Relationship Specialty Start Date End Date Simon Claros MD PCP - General Internal Medicine 09/22/12 08/20/21 Simon Claros MD PCP - Assigned PCP 06/18/16 01/17/19 [address] [place] [phone] Simon Claros MD Assigned PCP 06/18/16 03/01/21 [address] [phone] documented as of this encounter
--- OUTSIDE RECORDS SUMMARY | 2022-08-20 14:27 | XMS_ITS | Encounter Summary ---
:1945 Author Organization [place] Address [address] [place] [address]. [place] [address] Care Team Providers Name Role Phone Simon Claros MD Primary Care Provider Simon Claros MD Unavailable Simon Claros MD Unavailable Reason for Referral Consultation - Closed Specialty Diagnoses / Procedures Referred By Contact Refer red To Contact Diagnoses Recurrent UTI Ewelina Bradley [facility] MD [facility] [address] 551 48 [phone] Referral ID Status Reason Start Date Expiration Date Visits Requ ested Visits Authorized [id number] Closed 08/26/2017 08/26/2018 1 1 Reason for Visit Reason Comments Urinary Problem urinary symptoms since last NOC Encounter Details Date Type Department Care Team Description 08/26/2017 Office Visit [facility] Roberto Bradley nt UTI (Primary Dx); [facility] [place] Ewelina Murry [place] N[place] [address] [address] [phone] Social History Tobacco Use Types Packs/Day Years Used Date Passive Smoke Exposure - Never Smoker Smokeless Tobacco: Never Used Alcohol Use Standard Drinks/Week Comments No 0 (1 standard drink = 0.6 oz pure alcoho l) Sex Assigned at Date Recorded Female 01/27/2022 12:36 PM CDT documented as of this encounter Last Filed Vital Signs Vital Sign Reading Time Taken Comments Blood Pressure 132/77 08/26/2017 2:26 PM CDT Pulse 83 08/26/2017 2:26 PM CDT Temperature 36.7 ??C (98 ??F) 08/26/2017 2:26 PM CDT Respiratory Rate 16 08/26/2017 2:26 PM CDT Oxygen Saturation - - Inhaled Oxygen Concentration - - Weight 68.9 kg (152 lb) 08/26/2017 2:26 PM CDT Height 166.4 cm (5' 5.5) 08/26/2017 2:26 PM CDT Body Mass Index 24.91 08/26/2017 2:26 PM CDT documented in this encounter Patient Instructions Patient InstructionsEwelina Bradley MD - 08/26/2017 3:09 PM CDT Images from the original note were not included. Follow up urology for further evaluation Urinary Tract Infections in Women Urinary tract infections (UTIs) are most often caused by bacteria (germs). These bacteria enter the urinary tract. The bacteria may come from outside the body. Or they may travel from the skin outside the??rectum or vagina into the urethra. Female anatomy makes it easy for bacteria from the bowel??to enter a woman???s urinary tract, which is the most common source of UTI. This means women develop UTIs more often than men. Pain in or around the urinary tract is a common UTI symptom. But the only way to know for sure if you have a UTI for the healthcare provider to test your urine. The two tests thatmay be done are the urinalysis and urine culture. Types of UTIs ?? Cystitis: A bladder infection (cystitis) is the most common UTI in women. You may have urgent or frequent urination. You may also have??pain, burning when you urinate, and bloody urine. ?? Urethritis: This is an inflamed urethra, which is the tube that carries urine from the bladder tooutside the body. You may have lower stomach or back pain. You may also have urgent or frequent urination. ?? Pyelonephritis: This is a kidney infection. If not treated, it can be serious and damage your kidneys. In severe cases, you may be hospitalized. You may have a fever and lower back pain. Medicines to treat a UTI Most UTIs are treated with antibiotics. These kill the bacteria. The length of time you need to takethem depends on the type of infection. It may be as short as 3 days. If you have repeated UTIs, a low-dose antibiotic may be needed for several months. Take antibiotics exactly as directed. Don???t stop taking them until all of the medicine is gone. If you stop taking the antibiotic too soon, the infection may not go away, and you may develop a resistance to the antibiotic. This can make it much harder to treat. Lifestyle changes to treat and prevent UTIs The lifestyle changes below will help get rid of your UTI. They may also help prevent future UTIs. ?? Drink plenty of fluids. This includes water, juice, or other caffeine-free drinks. Fluids help flush bacteria out of your body. ?? Empty your bladder. Always empty your bladder when you feel the urge to urinate. And always urinate before going to sleep. Urine that stays in your bladder can lead to infection. Try to urinate before and after sex as well. ?? Practice good personal hygiene. Wipe yourself from front to back after using the toilet. This helps keep bacteria from getting into the urethra. ?? Use condoms during sex. These help prevent UTIs caused by sexually transmitted bacteria. Also, avoid using spermicides during sex. These can increase the risk of UTIs. Choose other forms of control instead. For women who tend to get UTIs after sex, a low-dose of a preventive antibiotic may beused. Be sure to discuss this option with your healthcare provider. ?? Follow up with your healthcare provider as directed. He or she may test to make sure the infection has cleared. If needed, more treatment may be started. Date Last Reviewed: 11/15/2016 ?? [id number] [employer] [address] [place] [address], [place] [address]. All rights reserved. This information is not intended as a substitute for professional medical care. Always follow your healthcare professional's instructions. documented in this encounter Progress Notes Ewelina Bradley MD - 08/26/2017 2:15 PM CDT SUBJECTIVE: Darshana Brooks is a 72 year old female who presents to clinic today for the following health issues: URINARY TRACT SYMPTOMS Onset: since last night ?? Description: Painful urination (Dysuria): YES Blood in urine (Hematuria): no Delay in urine (Hesitency): no Urine frequency: YES Urgency: YES ?? Intensity: moderate ?? Progression of Symptoms: worsening ?? Accompanying Signs & Symptoms: Fever/chills: no Flank pain no Nausea and vomiting: no Any vaginal symptoms: none Abdominal/Pelvic Pain: no ?? History: History of frequent UTI's: YES History of kidney stones: no Sexually Active: no Possibility of : No ?? Precipitating factors: Therapies Tried and outcome: Has been seen twice since end of July for UTI symptoms. Has been on macrobid x 2 and cefdinir. Completed most recent macrobid on 08/21 and still has symptoms. Problem list and histories reviewed & adjusted, as indicated. Additional history: as documented Patient Active Problem List Diagnosis ??? Right hip pain ??? ACP (advance care planning) ??? Chronic obstructive pulmonary disease, unspecified COPD type (H) ??? Strain of neck muscle, initial encounter Past Surgical History: Procedure Laterality Date ??? ARTHROPLASTY HIP ANTERIOR Right 03/10/2016 Procedure: ARTHROPLASTY HIP ANTERIOR; Surgeon: Wayne Estevez MD; Location: OR ??? BIOPSY NODE SENTINEL Right 02/08/2017 Procedure: BIOPSY NODE SENTINEL; Surgeon: Jordin Atkins MD; Location: [place] ??? COLONOSCOPY N/A 06/03/2017 Procedure: COLONOSCOPY; COLONOSCOPY ; Surgeon: Alejo Aburto MD; Location: GI ??? INJECTION OPERATOR SURGERY hysterectomy ??? LUMPECTOMY BREAST WITH SEED LOCALIZATION Right 02/08/2017 Procedure: LUMPECTOMY BREAST WITH SEED LOCALIZATION; Surgeon: Jordin Atkins MD; Location: [place] ??? ORTHOPEDIC SURGERY hip replacement Social History Substance Use Topics ??? Smoking status: Passive Smoke Exposure - Never Smoker ??? Smokeless tobacco: Never Used ??? Alcohol use No Family History Problem Relation Age of Onset ??? DIABETES Mother ??? Hypertension Mother ??? DIABETES Father ??? Asthma Father ??? Breast Cancer Sister ??? Other Cancer Brother Reviewed and updated as needed this visit by clinical staffTobacco Allergies Reviewed and updated as needed this visit by Provider ROS: Constitutional,gi and gu systems are negative, except as otherwise noted. OBJECTIVE: BP 132/77 (BP Location: Left arm, Patient Position: Chair, Cuff Size: Adult Large) Pulse 83 Temp98 ??F (36.7 ??C) (Oral) Resp 16 Ht 5' 5.5 (1.664 m) Wt 152 lb (68.9 kg) ? No BMI 24.91 kg/m2 Body mass index is 24.91 kg/(m^2). GENERAL: healthy, alert and no distress RESP: lungs clear to auscultation - no rales, rhonchi or wheezes CV: regular rate and rhythm, normal S1 S2, ABDOMEN: soft, nontender, and bowel sounds normal. No CVAT Diagnostic Test Results: Results for orders placed or performed in visit on 08/26/17 (from the past 24 hour(s)) UA reflex to Microscopic and Culture Result Value Ref Range Color Urine Yellow Appearance Urine Cloudy Glucose Urine Negative NEG^Negative mg/dL Bilirubin Urine Negative NEG^Negative Ketones Urine Negative NEG^Negative mg/dL Specific [place] Urine 1.020 1.003 - 1.035 Blood Urine Large (A) NEG^Negative pH Urine 7.5 (H) 5.0 - 7.0 pH Protein Albumin Urine >=300 (A) NEG^Negative mg/dL Urobilinogen Urine 0.2 0.2 - 1.0 EU/dL Nitrite Urine Positive (A) NEG^Negative Leukocyte Esterase Urine Large (A) NEG^Negative Source Midstream Urine Urine Microscopic Result Value Ref Range WBC Urine >100 (A) OTO2^O - 2 /HPF RBC Urine 5-10 (A) OTO2^O - 2 /HPF Bacteria Urine Many (A) NEG^Negative /HPF ASSESSMENT/PLAN: 1. Recurrent UTI - reviewed [facility]- > 100,000 CFU E.coli sensitive to Augmentin, cefepime, ertapenem, gentamicin, imipenem, macrobid and tobramycin. - will start on Augmentin and refer to urology for further evaluation. - UA reflex to Microscopic and Culture; Future - UA reflex to Microscopic and Culture - Urine Microscopic - Urine Culture Aerobic Bacterial - amoxicillin-clavulanate (AUGMENTIN) 875-125 MG per tablet; Take 1 tablet by mouth 2 times daily Dispense: 20 tablet; Refill: 0 - UROLOGY ADULT REFERRAL 2. Nonspecific finding on examination of urine - Urine Culture Aerobic Bacterial See Patient Instructions Ewelina Bradley MD [facility] documented in this encounter Nursing Notes Hailee Lipscomb CMA - 08/26/2017 2:15 PM CDT Chief Complaint Patient presents with ??? Urinary Problem urinary symptoms since last NOC Initial BP 132/77 (BP Location: Left arm, Patient Position: Chair, Cuff Size: Adult Large) Pulse 83 Temp 98 ??F (36.7 ??C) (Oral) Resp 16 Ht 5' 5.5 (1.664 m) Wt 152 lb (68.9 kg) ? No BMI 24.91 kg/m2 Estimated body mass index is 24.91 kg/(m^2) as calculated from the following: Height as of this encounter: 5' 5.5 (1.664 m). Weight as of this encounter: 152 lb (68.9 kg). Medication Reconciliation: complete Hailee Lipscomb/HERBIE [place] documented in this encounter Plan of Treatment Upcoming Encounters Date Type Specialty Care Team Description 10/26/2022 Lab Oncology Yris Perez MD [address] [address] (Wo rk) 11/03/2022 Oncology Visit Oncology Yris Perez MD [address] [address] (Wo rk) Scheduled Referrals Name Type Priority Associated Diagnoses Order [facility] UROLOGY ADULT REFERRAL Referral Routine Recurrent UTI Orde red: 08/26/2017 documented as of this encounter Procedures Procedure Name Priority Date/Time Associated Diagnosis Comme nts URINE CULTURE Routine 08/26/2017 2:26 PM Recurrent UTI Results for this CDT Nonspecific finding procedur e are in on examination of the result s urine section. URINE MICROSCOPIC Routine 08/26/2017 2:13 PM Recurrent UTI Res ults for this CDT procedure are i n the results section. UA MACROSCOPIC WITH Routine 08/26/2017 2:13 PM Recurrent UTI R esults for this REFLEX TO CDT procedure are i n MICROSCOPIC AND the results CULTURE section. documented in this encounter Results (ABNORMAL) Urine Culture Aerobic Bacterial (08/26/2017 2:26 PM CDT) Component Value Ref Test Analysis Performed At Patholo gist Range Method Time Signature Specimen Midstream Urine INFECTIOUS Description DISEASE DIAGNOSTIC LABORATORY Culture Micro >100,000 colonies/mL 08/29/2017 INFE CTIOUS Escherichia coli ESBL 9:56 AM CDT DISEAS E ESBL (extended beta lactamas e) producing organisms require contact precautions. DIAGNOSTIC (A) LABORATORY Specimen (Source) Anatomical Collection Method Collection Time Re ceived Time Location / / Volume Laterality Examination of 08/26/2017 2:26 08/26/2017 2:31 midstream urine PM CDT PM CDT specimen [...] te sting. Escherichia coli ESBL Cefoxitin VERONIKA <=4 ug/mL: Susceptible Escherichia coli ESBL Ceftazidime VERONIKA ug/mL: Re sistant Escherichia coli ESBL Ceftriaxone VERONIKA >=64 ug/mL : Resistant Escherichia coli ESBL Ciprofloxacin VERONIKA >=4 ug/mL: Resistant Escherichia coli ESBL Gentamicin VERONIKA <=1 ug/mL: Susceptible Escherichia coli ESBL Levofloxacin VERONIKA >=8 ug/mL: Resistant Escherichia coli ESBL Nitrofurantoin VERONIKA <=16 ug/mL : Susceptible Escherichia coli ESBL Tobramycin VERONIKA <=1 ug/mL: Susceptible Escherichia coli ESBL Trimethoprim/Sulfamethoxazole VERONIKA >=16/304 ug/mL: Resistant Escherichia coli ESBL Ampicillin/Sulbactam VERONIKA 4 ug/ mL: Susceptible Escherichia coli ESBL Piperacillin/Tazo VERONIKA <=4 ug/m L: Susceptible Escherichia coli ESBL Amikacin VERONIKA <=2 ug/mL: Susceptible Escherichia coli ESBL Cefepime VERONIKA ug/mL: Re sistant Escherichia coli ESBL Meropenem VERONIKA <=0.25 ug/ mL: Susceptible Escherichia coli ESBL Ertapenem VERONIKA 0.006 ug/m L: Susceptible Ewelina Bradley MD LAB - MICRO GENERAL ORDE RABLES Performing Organization Address City/[facility] Phon e Number INFECTIOUS DISEASES [address] [place] [address] DIAGNOSTIC LABORATORY, [facility] INFECTIOUS DISEASE [address] [place] [address], [facility] DIAGNOSTIC LABORATORY (ABNORMAL) Urine Microscopic (08/26/2017 2:13 PM CDT) athologist Signature WBC Urine >100 (A) OTO2^O - 2 08/26/2017 [facility] /HPF 2:27 PM CDT [facility] RBC Urine 5-10 (A) OTO2^O - 2 08/26/2017 [facility] /[facility]PF 2:27 PM CDT [facility] Bacteria Urine Many (A) NEG^Negati 08/26/2017 [facility] ve /HPF 2:27 PM CDT [facility] Specimen Anatomical Collection Method Collection Time Receive d Time (Source) Location / / Volume Laterality 08/26/2017 2:13 PM 201 7 2:14 CDT PM CDT Ewelina Bradley MD LAB - URINE ORDERABLES Performing Organization Address [facility]/ZIP Code Phon e Number [facility] [address] [place], [place] [phone] (ABNORMAL) UA reflex to Microscopic and Culture (08/26/2017 2:13 PM CDT) [facility] gist Method Time Signature Color Urine Yellow 08/26/2017 [facility] 2:27 PM CDT [facility] Appearance Urine Cloudy 08/26/2017 [facility] 2:27 PM CDT [facility] Glucose Urine Negative NEG^Negat 08/26/2017 [facility] dee mg/dL 2:27 PM CDT [facility] Bilirubin Urine Negative NEG^Negat 08/26/2017 [facility] dee 2:27 PM CDT [facility] Ketones Urine Negative NEG^Negat 08/26/2017 [facility] dee mg/dL 2:27 PM CDT [facility] Specific [place] 1.020 1.003 - 08/26/2017 [facility] Urine 1.035 2:27 PM CDT [facility] Blood Urine Large (A) NEG^Negat 08/26/2017 [facility] dee 2:27 PM CDT [facility] pH Urine 7.5 (H) 5.0 - 7.0 08/26/2017 [facility] pH 2:27 PM CDT [facility] Protein Albumin >=300 (A) NEG^Negat 08/26/2017 [facility] Urine dee mg/dL 2:27 PM CDT [facility] Urobilinogen 0.2 0.2 - 1.0 08/26/2017 [facility] Urine EU/dL 2:27 PM CDT [facility] Nitrite Urine Positive (A) NEG^Negat 08/26/2017 [facility] dee 2:27 PM CDT [facility] Leukocyte Large (A) NEG^Negat 08/26/2017 [facility] Esterase Urine dee 2:27 PM CDT [facility] Source Midstream 08/26/2017 [facility] Urine 2:27 PM CDT [facility] Specimen (Source) Anatomical Collection Method Collection Time Re ceived Time Location / / Volume Laterality Examination of 08/26/2017 2:13 08/26/2017 2:14 midstream urine PM CDT PM CDT specimen (procedure) Ewelina Bradley MD LAB - URINE ORDERABLES Performing Organization Address City/State/ZIP Code Phon e Number [facility] [address] [place], [place] [phone] documented in this encounter Visit Diagnoses Diagnosis Recurrent UTI - Primary Urinary tract infection, site not specif ied Nonspecific finding on examination of ur ine Other nonspecific finding on examination of urine documented in this encounter Additional Health Concerns Infection Onset Date Last Indicated Resolved Time 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, 01/08/2017 9 06/08/17, 08/26/17 documented as of this encounter Care Teams Stonecutter Relationship Specialty Start Date End Date Simon Claros MD PCP - General Internal Medicine 09/22/12 08/20/21 Simon Claros MD PCP - Assigned PCP 06/18/16 01/17/19 [address] [place] [address] Simon Claros MD Assigned PCP 06/18/16 03/01/21 [address] [place] [address] documented as of this encounter
--- OUTSIDE RECORDS SUMMARY | 2022-08-20 14:27 | XMS_ITS | Encounter Summary ---
:1945 Author Organization [place] Address [address] [place] [address] Care Team Providers Name Role Phone Simon Claros MD Primary Care Provider Simon Claros MD Unavailable Simon Claros MD Unavailable Reason for Referral Consultation - Closed Specialty Diagnoses / Procedures Referred By Contact Refer red To Contact Diagnoses Dysuria Simon Calros MD [facility] [address] [facility] [address] [facility] [address] [place] [address] [place] [address] Phone: [phone] Referral ID Status Reason Start Date Expiration Date Visits Requ ested Visits Authorized [id number] Closed 08/20/2017 08/20/2018 1 1 Reason for Visit Reason Onset Date Comments Referral 08/16/2017 Encounter Details Date Type Department Care Team Description 08/16/2017 [facility] Simon Claros MD Referral [place] [address] [facility] [address] [facility] [address] [place] [address] [place] [address] [phone] Social History Tobacco Use Types Packs/Day Years Used Date Passive Smoke Exposure - Never Smoker Smokeless Tobacco: Never Used Alcohol Use Standard Drinks/Week Comments No 0 (1 standard drink = 0.6 oz pure alcoho l) Sex Assigned at Date Recorded Female 01/27/2022 12:36 PM CDT documented as of this encounter Miscellaneous Notes Telephone Encounter - Demetrice Healy CMA - 08/16/2017 10:[address] Claros, Patient requesting Urology Referral Telephone Encounter - Maribel Tello - 08/16/2017 8:56 AM CDT Reason for Call: Other referral Detailed comments: The patient said she keeps having re-occurring UTI's and she wants to be referredto a Urologist in [place] She said she has had 7 this year already Phone Number Patient can be reached at: Home number on file [phone] (home) Best Time: anytime Can we leave a detailed message on this number? YES Call taken on 08/16/2017 at 8:56 AM by Maribel Tello documented in this encounter Plan of Treatment Upcoming Encounters Date Type Specialty Care Team Description 10/26/2022 Lab Oncology Yris Perez MD [address] [place] [address] (Wo rk) 11/03/2022 Oncology Visit Oncology Yris Perez MD [address] [address] (Wo rk) Scheduled Referrals Name Type Priority Associated Diagnoses Order S chedule UROLOGY ADULT REFERRAL Referral Routine Dysuria Order ed: 08/20/2017 documented as of this encounter Visit Diagnoses Diagnosis Dysuria - Primary documented in this encounter Additional Health Concerns Infection Onset Date Last Indicated Resolved Time 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
--- OUTSIDE RECORDS SUMMARY | 2022-08-20 14:27 | XMS_ITS | Encounter Summary ---
:1945 Author Organization [facility] Address [address] [place] [address] Care Team Providers Name Role Phone Simon Claros MD Primary Care Provider Simon Claros MD Unavailable Simon Claros MD Unavailable Encounter Details Date Type Department Care Team Description 11/24/2017 [facility] Iggy Dodd, Giniu daniel (Primary Dx) [facility] [address] [place] [address] [place] [address] [place] [phone] (Wo rk) Social History Tobacco Use [...] Lab Oncology Yris Perez MD [address] [address] (Madeleine rk) 11/03/2022 Oncology Visit Oncology Yris Perez MD [address] [address] (Wo rk) documented as of this encounter Results Urine Culture Aerobic Bacterial [SSQ025] (11/24/2017 3:57 PM AUTOMOTIVE ENGINEERING TECHNICIAN) Patholo gist Method Time Signature Specimen Midstream INFECTIOUS Description Urine DISEASE DIAGNOSTIC LABORATORY Culture Micro 10,000 to 50,000 colonies/mL 018 INFECTIOUS mixed urogenital robert 2:13 PM AUTOMOTIVE ENGINEERING TECHNICIAN [facility] DIAGNOSTIC LABORATORY Specimen (Source) Anatomical Collection Method Collection Time Re ceived Time Location / / Volume Laterality Examination of 11/24/2017 3:57 11/24/2017 3:58 midstream urine PM AUTOMOTIVE ENGINEERING TECHNICIAN PM AUTOMOTIVE ENGINEERING TECHNICIAN specimen (procedure) Iggy Dodd MD LAB - MICRO GENERAL ORDERABL ES Performing Organization Address City/State/ZIP Code Phon e Number INFECTIOUS DISEASES [address] [place] [address] DIAGNOSTIC LABORATORY, [facility] INFECTIOUS DISEASE [address] [place] [address], [facility] DIAGNOSTIC LABORATORY (ABNORMAL) UA without Microscopic [[id number]] (11/24/2017 3:57 PM AUTOMOTIVE ENGINEERING TECHNICIAN) Patholo gist Method Time Signature Color Urine Yellow 11/24/2017 [facility] 4:19 PM AUTOMOTIVE ENGINEERING TECHNICIAN [facility] Appearance Urine Cloudy 11/24/2017 [facility] 4:19 PM AUTOMOTIVE ENGINEERING TECHNICIAN [facility] Glucose Urine Negative NEG^Negat 11/24/2017 [facility] dee mg/dL 4:19 PM AUTOMOTIVE ENGINEERING TECHNICIAN [facility] Bilirubin Urine Negative NEG^Negat 11/24/2017 [facility] dee 4:19 PM AUTOMOTIVE ENGINEERING TECHNICIAN [facility] Ketones Urine Trace (A) NEG^Negat 11/24/2017 [facility] dee mg/dL 4:19 PM AUTOMOTIVE ENGINEERING TECHNICIAN [facility] Specific [place] 1.020 1.003 - 11/24/2017 [facility] Urine 1.035 4:19 PM AUTOMOTIVE ENGINEERING TECHNICIAN [facility] Blood Urine Moderate (A) NEG^Negat 11/24/2017 [facility] dee 4:19 PM AUTOMOTIVE ENGINEERING TECHNICIAN [facility] pH Urine 6.0 5.0 - 7.0 11/24/2017 [facility] pH 4:19 PM AUTOMOTIVE ENGINEERING TECHNICIAN [facility] Protein Albumin 30 (A) NEG^Negat 11/24/2017 [facility] Urine dee mg/dL 4:19 PM AUTOMOTIVE ENGINEERING TECHNICIAN [facility] Urobilinogen 0.2 0.2 - 1.0 11/24/2017 [facility] Urine EU/dL 4:19 PM AUTOMOTIVE ENGINEERING TECHNICIAN [facility] Nitrite Urine Positive (A) NEG^Negat 11/24/2017 [facility] dee 4:19 PM AUTOMOTIVE ENGINEERING TECHNICIAN [facility] Leukocyte Large (A) NEG^Negat 11/24/2017 [facility] Esterase Urine dee 4:19 PM AUTOMOTIVE ENGINEERING TECHNICIAN [facility] Source Midstream 11/24/2017 [facility] Urine 4:19 PM AUTOMOTIVE ENGINEERING TECHNICIAN [facility] Specimen (Source) Anatomical Collection Method Collection Time Re ceived Time Location / / Volume Laterality Examination of 11/24/2017 3:57 11/24/2017 3:58 midstream urine PM AUTOMOTIVE ENGINEERING TECHNICIAN PM AUTOMOTIVE ENGINEERING TECHNICIAN specimen (procedure) Iggy Dodd MD LAB - URINE ORDERABLES Performing Organization Address City/State/ZIP Code Phon e Number [facility] [id number] [place], [place] [id number] documented in this encounter Visit Diagnoses Diagnosis Dysuria - Primary documented in this encounter Additional Health Concerns Infection Onset Date Last Indicated Resolved Time 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
--- OUTSIDE RECORDS SUMMARY | 2022-08-20 14:27 | XMS_ITS | Encounter Summary ---
:1945 Author Organization [facility] Address [address] [place] [address] Care Team Providers Name Role Phone Simon Claros MD Primary Care Provider Simon Claros MD Unavailable Simon Claros MD Unavailable Reason for Visit Auth/Cert Specialty Diagnoses / Procedures Referred By Contact Refer red To Contact Gastroenterology Diagnoses screening (fv) Endoscopy Procedures COLONOSCOPY [address] [place] [address] Phone: Fax: Referral ID Status Reason Start Date Expiration Date Visits Requ ested Visits Authorized [id number] 1 1 Encounter Details Date Type Department Care Team Description 06/03/2017 Surgery [facility] Endoscopy Alejo Huffman MD COLONOSCOPY [facility] [address] [facility] [address] [place] [address] [place] [address] [phone] (Wo rk) Surgery Details Date/Time Status Location OR Service Patient Class Case Case Trauma Class Type Case? 06/03/17 9:00 Posted GI GI A Gastroenterology Outpatient AM Panel 1 Procedure LRB Anes Op Region Wound Class Commen ts COLONOSCOPY N/A Conscious Sedation Rectum II-Clean COLON OSCOPY Contaminated Surgeon Surgeon Role Service Panel Alejo Aburto MD Primary Gastroenterology 1 documented in this encounter Social History Tobacco [...] Sign Reading Time Taken Comments Blood Pressure 132/70 06/03/2017 9:24 AM CDT Pulse - - Temperature - - Respiratory Rate 10 06/03/2017 9:20 AM CDT Oxygen Saturation 94% 06/03/2017 9:24 AM CDT Inhaled Oxygen Concentration - - Weight 65.8 kg (145 lb) 06/03/2017 8:41 AM CDT Height 167.6 cm (5' 6) 06/03/2017 8:41 AM CDT Body Mass Index 23.4 06/03/2017 8:41 AM CDT documented in this encounter Discharge Instructions Discharge InstructionsCathi Anglin RN - 06/03/2017 9:37 AM CDT Images from the original note were not included. Understanding Diverticulosis and Diverticulitis Pouches or diverticula usually occur in the lower part of the colon called the sigmoid. Diverticulitis occurs when the pouches become inflamed. The colon (large intestine) is the last part of the digestive tract. It absorbs water from stool andchanges it from a liquid to a solid. In certain cases, small pouches called diverticula can form in the colon wall. This condition is called diverticulosis. The pouches can become infected. If this happens, it becomes a more serious problem called diverticulitis. These problems can be painful. But they can be managed. Managing Your Condition Diet changes or taking medications are often tried first. These may be enough to bring relief. If the case is bad, surgery may be done. You and your doctor can discuss the plan that is best for you. If You Have Diverticulosis Diet changes are often enough to control symptoms. The main changes are adding fiber (roughage) and drinking more water. Fiber absorbs water as it travels through your colon. This helps your stool staysoft and move smoothly. Water helps this process. If needed, you may be told to take yorg-txu-silxlic stool softeners. To help relieve pain, antispasmodic medications may be prescribed. If You Have Diverticulitis Treatment depends on how bad your symptoms are. For mild symptoms: You may be put on a liquid diet for a short time. You may also be prescribed antibiotics. If these two steps relieve your symptoms, you may then be prescribed a high-fiber diet. If you still have symptoms, your doctor will discuss further treatment options with you. For severe symptoms: You may need to be admitted to the hospital. There, you can be given IV antibiotics and fluids. Once symptoms are under control, the above treatments may be tried. If these don???tcontrol your condition, your doctor may discuss the option of having surgery with you. [place] to Colon Health Help keep your colon healthy with a diet that includes plenty of high-fiber fruits, vegetables, and whole grains. Drink plenty of liquids like water and juice. Your doctor may also recommend avoiding seeds and nuts. ?? [id number] [place] [address]. All rights reserved. This information is not intended as a substitute for professional medical care. Always follow your healthcare professional's instructions. Eating a High-Fiber Diet Fiber is what gives strength and structure to plants. Most grains, beans, vegetables, and fruits contain fiber. Foods rich in fiber are often low in calories and fat, and they fill you up more. They may also reduce your risks for certain health problems. To find out the amount of fiber in canned, packaged, or frozen foods, read the ???Nutrition Facts?? label. It tells you how much fiber is in a serving. Types of Fiber and Their Benefits There are two types of fiber: insoluble and soluble. They both aid digestion and help you maintain ahealthy weight. Insoluble fiber: This is found in whole grains, cereals, certain fruits and vegetables (such as apple skin, corn, and carrots). Insoluble fiber may prevent constipation and reduce the risk of certain types of cancer. Soluble fiber: This type of fiber is in oats, beans, and certain fruits and vegetables (such as strawberries and peas). Soluble fiber can reduce cholesterol (which may help lower the risk of heart disease), and helps control blood sugar levels. Look for High-Fiber Foods Whole-grain breads and cereals: Try to eat 6-8 ounces a day. Include wheat and oat bran cereals, whole-wheat muffins or toast, and corn tortillas in your meals. Fruits: Try to eat 2 cups a day. Apples, oranges, strawberries, pears, and bananas are good sources.(Note: Fruit juice is low in fiber.) Vegetables: Try to eat 3 cups a day. Add asparagus, carrots, broccoli, peas, and corn to your meals. Legumes (beans): One cup of cooked lentils gives you over 15 grams of fiber. Try navy beans, lentils, and chickpeas. Seeds: A small handful of seeds gives you about 3 grams of fiber. Try sunflower seeds. Keep Track of Your Fiber A healthy diet includes 31 grams of fiber a day if you have a 2,000-calorie diet. Keep track of how much fiber you eat. Start by reading food labels. Then eat a variety of foods high in fiber. Ask yourdoctor about supplemental fiber products. ?? [id number] [place] [address]. All rights reserved. This information is not intended as a substitute for professional medical care. Always follow your healthcare professional's instructions. documented in this encounter Medications at Time of Discharge Medication Sig Dispensed Refills Start Date End Date Cholecalciferol (VITAMIN Take 2,000 Units by 0 D3 PO) mouth daily loratadine (CLARITIN) 10 Take 10 mg by mouth 0 MG tablet albuterol (PROAIR Inhale 2-4 puffs into 0 04/20/2018 HFA/PROVENTIL the lungs as needed HFA/VENTOLIN HFA) 108 (90 BASE) MCG/ACT Inhaler HYDROcodone-acetaminophe Take 1-2 tablets by 20 tablet 0 06/08/2017 n (NORCO) 5-325 MG per mouth every 4 hours tabletIndications: Acute as needed for other post-operative pain (Moderate to Severe Pain) letrozole (FEMARA) 2.5 Take 2.5 mg by mouth 0 08/26/2017 MG tablet NONFORMULARY Take 1 Tablespoonful 0 by mouth daily ALL NATURAL GREENS NONFORMULARY Take 29 mLs by mouth 0 daily LIQUIDRIVE ANTIOXIDENT (1 ounce) NONFORMULARY Take 5 mLs by mouth 0 10/2017 daily LIPOSOMAL GLUTATHIONE NONFORMULARY Take 6 mLs by mouth 0 10/2017 daily LIPOSOMAL CURCUMIN Orinda-3 Fatty Acids Take 6 mLs by mouth 0 08/26/2017 (OMEGA ESSENTIALS BASIC) daily LIQD documented as of this encounter H&P Notes Alejo Aburto MD - 06/03/2017 8:55 AM CDT Pre-Endoscopy History and Physical Darshana Boroks Date of : 1945 Age: [age] year old Date of Procedure: 06/03/2017 Primary care provider: Simon Claros Type of Endoscopy: Colonoscopy with possible biopsy, possible polypectomy Reason for Procedure: screen Type of Anesthesia Anticipated: Conscious Sedation HPI: Darshana is a 71 year old female who will be undergoing the above procedure. A history and physical has been performed. The patient's medications and allergies have been reviewed. The risks and benefits of the procedure and the sedation options and risks were discussed with thepatient. All questions were answered and informed consent was obtained. She denies a personal or family history of anesthesia complications or bleeding disorders. Patient Active Problem List Diagnosis ??? Right hip pain ??? ACP (advance care planning) ??? Benign essential hypertension ??? Chronic obstructive pulmonary disease, unspecified COPD type (H) ??? Strain of neck muscle, initial encounter Past Medical History: Diagnosis Date ??? Cancer (H) breast ??? COPD (chronic obstructive pulmonary disease) (H) ??? Hypertension Past Surgical History: Procedure Laterality Date ??? ARTHROPLASTY HIP ANTERIOR Right 03/10/2016 Procedure: ARTHROPLASTY HIP ANTERIOR; Surgeon: Wayne Estevez MD; Location: OR ??? BIOPSY NODE SENTINEL Right 02/08/2017 Procedure: BIOPSY NODE SENTINEL; Surgeon: Jordin Atkins MD; Location: [place] ??? [employer] SURGERY hysterectomy ??? LUMPECTOMY BREAST WITH SEED [...] Breast Cancer Sister ??? Other Cancer Brother Prior to Admission medications Medication Sig Start Date End Date Taking? Authorizing Provider letrozole (FEMARA) 2.5 MG tablet Take 2.5 mg by mouth Yes Reported, Patient albuterol (PROAIR HFA/PROVENTIL HFA/VENTOLIN HFA) 108 (90 BASE) MCG/ACT Inhaler Inhale 2-4 puffs into the lungs Yes Reported, Patient loratadine (CLARITIN) 10 MG tablet Take 10 mg by mouth Yes Reported, Patient Cholecalciferol (VITAMIN D3 PO) Take 2,000 Units by mouth daily Yes Reported, Patient Orinda-3 Fatty Acids (OMEGA ESSENTIALS BASIC) LIQD Take 6 mLs by mouth daily Yes Reported, Patient HYDROcodone-acetaminophen (NORCO) 5-325 MG per tablet Take 1-2 tablets by mouth every 4 hours as needed for other (Moderate to Severe Pain) Patient not taking: Reported on 02/23/2017 02/08/17 Fatuma Charles PA-C NONFORMULARY Take 1 Tablespoonful by mouth daily ALL NATURAL GREENS Reported, Patient NONFORMULARY Take 29 mLs by mouth daily LIQUIDRIVE ANTIOXIDENT (1 ounce) Reported, Patient NONFORMULARY Take 5 mLs by mouth daily LIPOSOMAL GLUTATHIONE Reported, Patient NONFORMULARY Take 6 mLs by mouth daily LIPOSOMAL CURCUMIN Reported, Patient Allergies Allergen Reactions ??? Other [No Clinical Screening - See Comments] PN: LW Other1: -latex:nasal congestion, eyes watering. LW Other2: -canteloupe, horses, cats, dust, molds, trees ??? Sulfamethoxazole Heartburn ??? Chlorhexidine Gluconate [Chlorhexidine] Rash ??? Latex Rash Other reaction(s): Other, see comments PN: sneezing, runny nose, REVIEW OF SYSTEMS: 5 point ROS negative except as noted above in HPI, including Gen., Resp., CV, GI & system review. PHYSICAL EXAM: Ht 1.676 m (5' 6) Wt 65.8 kg (145 lb) BMI 23.4 kg/m2 Estimated body mass index is 23.4 kg/(m^2)as calculated from the following: Height as of this encounter: 1.676 m (5' 6). Weight as of this encounter: 65.8 kg (145 lb). GENERAL APPEARANCE: alert, and oriented MENTAL STATUS: alert AIRWAY EXAM: Mallampatti Class I (visualization of the soft palate, fauces, uvula, anterior and posterior pillars) RESP: lungs clear to auscultation - no rales, rhonchi or wheezes CV: regular rates and rhythm DIAGNOSTICS: Not indicated IMPRESSION ASA Class 2 - Mild systemic disease PLAN: Plan for Colonoscopy with possible biopsy, possible polypectomy. We discussed the risks, benefits and alternatives and the patient wished to proceed. The above has been forwarded to the consulting provider. Signed Electronically by: Alejo Aburto June 03, 2017 documented in this encounter Nursing Notes Cathi Anglin RN - 06/03/2017 11:01 AM CDT Pt sat at the edge of the bed to see how she is doing pt said she feels great denies nausea or lightheadedness ,pt discharged home in stable condition accompanied by her ,pt said she is pleased with care Cathi Anglin RN - 06/03/2017 10:34 AM CDT Pt denies pain and said nausea resolved ,pt said she would like to rest more in recovery Cathi Anglin RN - 06/03/2017 10:25 AM CDT Pt said she has no pain at any time in recovery but when tried to set pt up pt said she felt nauseated and vomited clear fluids ,Zofran given ,pt resting comfortable vital sign are normal , at bed side documented in this encounter Plan of Treatment Upcoming Encounters Date Type Specialty Care Team Description 10/26/2022 Lab Oncology Yris Perez MD [address] [facility] [address] [place] [address] (Wo rk) 11/03/2022 Oncology Visit Oncology Yris Perez MD [address] [facility] [address] [place] [address] (Wo rk) documented as of this encounter Procedures Procedure Name Priority Date/Time Associated Diagnosis Comme nts COLONOSCOPY 06/03/2017 8:55 AM screen CDT COLONOSCOPY Routine 06/03/2017 8:42 AM Results f or this CDT procedure are i n the results section . documented in this encounter Results COLONOSCOPY (06/03/2017 8:42 AM CDT) [facility] Method Time Signature COLONOSCOPY [facility] RAD IOLOGY RESULTS Patient Name: Darshana Brooks ? Procedure Date: 06/03/2017 8:42 AM ? Accou nt Number: [id number] Date of : 1945 ?Admit Type: Out patient Age: 71 ? Gender: Female Attending MD: Alejo Aburto MD ?? Total Sedation Time: 15 min. Instrument Name: 136 ? Procedure: ?Colonoscopy Indications: ?High ri sk colon cancer surveillance: Personal ?history of colonic po lyps Providers: ?Alejo Aburto MD (Doc tor) Referring MD: ? Simno Claros MD (Referri patti HINES) Medicines: ?Midazolam 2 mg IV, Fentanyl 100 micrograms IV Complications: ?No immediate complications. Procedure: ?Pre-Anesthesia Assessment: ?- Prior to the procedure, a History and Physical ?was performed, and patient medications and ?allergies were reviewed. The patient is competent. ?The risks and benefits of the procedure and the ?sedation options and risks were discussed with the ?patient. All questions were answered and informed ?consent was obtained. Patient identification and ?proposed procedure were verified by the physician ?in the procedure room. Mental Status Examination: ?alert and oriented. Airway Examination: normal ?oropharyngeal airway and neck mobility. Respiratory ?Examination: clear to auscultation. CV Examination: ?normal. Prophylactic Antibiotics: The patient does ?not require prophylactic antibiotics. Prior ?Anticoagulants: The patient has taken no previous ?anticoagulant or antiplatelet agents. ASA Grade ?Assessment: II - A patient with mild systemic ?disease. After reviewing the risks and benefits, ?the patient was deemed in satisfactory condition to ?undergo the procedure. The anesthesia plan was to ?use moderate sedation / analgesia (conscious ?sedation). Immediately prior to administration of ?medications, the patient was re-assessed for ?adequacy to receive sedatives. The heart rate, ?respiratory rate, oxygen saturations, blood ?pressure, adequacy of pulmonary ventilation, and ?response to care were monitored throughout the ?procedure. The physical status of the patient was ?re-assessed after the procedure. ?After obtaining informed consent, the colonoscope ?was passed under direct vision. Throughout the ?procedure, the patient's blood pressure, pulse, and ?oxygen saturations were monitored continuously. The ?Olympus Peds Colonoscope Model #[id number]-[id number], ?[place]#136, SN#[id number] was introduced through the ?anus and advanced to the cecum, identified by ?appendiceal orifice and ileocecal valve. The ?colonoscopy was performed without difficulty. The ?patient tolerated the procedure well. The quality ?of the bowel preparat ion was good. ? Findings: ? The perianal and digital rectal examinations were nor mal. ? Multiple small and large-mouthed divertic roya were found in the sigmoid ? colon and descending colon. ? The exam was otherwise without abnormality on d irect and retroflexion ? views. ? Impression: ? - Diverticulosis in the sigmoid colon and in the ?descending colon. ?- The examination was otherwise normal on direct ?and retroflexion view s. ?- No specimens collec sugey. Recommendation: ? - Repeat colonoscopy in 5 years for surveillance. ? Procedure Code(s): ? --- Professional --- ? G0105, Colorectal cancer screening; colonoscopy on individual at high ? risk Diagnosis Code(s): ? --- Professional --- ? Z86.010, Personal history of colonic polyps CPT copyright 2016 [employer]. All rights reserved. The codes documented in this report are prelimin vitor and upon school supervisor review may be revised to meet current compliance requirements. Electronically signed by Alejo Aburto MD Alejo Abruto MD 06/03/2017 9:22:35 AM I was physically present for the entire viewing portion of t he exam. Alejo Aburto MD Number of Addenda: 0 Note Initiated On: 06/03/2017 8:42 AM MRN: ?[id number] Procedure Date: ? 06/03/2017 8:42:58 AM Scope Withdrawal Time: 0 hours 6 minutes 16 seconds Total Procedure Duration: 0 hours 13 minutes 36 seconds Estimated Blood Loss: ? Scope In: 9:02:29 AM Scope Out: 9:16:05 AM Specimen (Source) Anatomical Collection Method Collection Time Re ceived Time Location / / Volume Laterality 06/03/2017 8:42 AM CDT Simon Claros MD PROCEDURES Performing Organization Address City/State/ZIP Code Phon e Number RADIOLOGY RESULTS documented in this encounter Visit Diagnoses Not on filedocumented in this encounter Administered Medications Inactive Administered Medications - up to 3 most recent administrations Medication Order MAR Action Action Date Dose Rate Site diphenhydrAMINE (BENADRYL) injection PRN, Starting on Louann 06/03/17 at 0902, Intra-procedure fentaNYL (PF) (SUBLIMAZE) injection Given 06/03/2017 9:06 AM CDT 50 mcg PRN, Starting on Louann 06/03/17 at 0901, Intra-procedure Given 06/03/2017 9:01 AM CDT 50 mcg lidocaine (LMX4) kit Topical, EVERY 1 HOUR PRN, mild pain, with VAD inserti on or accessing implanted port,, Starting on Louann 06/03/17 at 0841, For 1 dose, Do NOT give if patient has a history of allergy to any local anesthetic or any yanique ne product. Apply 30 min prior to VAD insertion or port access. MAX Dose: 2.5 g m (?? of 5 gm tube), Pre-procedure lidocaine 1 % 1 mL 1 mL, Other, EVERY 1 HOUR PRN, mild pain with VAD insertion or accessing implanted port., Starting on Louann 06/03/17 at 0841, Do NOT give if patient has a history of allergy to any local anesthetic or any michaela product. MAX dose 1 mL subcutaneous OR intradermal in divided doses., Pre-procedure midazolam (VERSED) injection Given 06/03/2017 9:06 AM CDT 1 mg PRN, Starting on Louann 06/03/17 at 0901, Intra-procedure Given 06/03/2017 9:01 AM CDT 1 mg ondansetron (ZOFRAN) injection 4 mg Given 06/03/2017 10:22 AM CDT 4 mg 4 mg, Intravenous, ONCE PRN, nausea, vomiting, Administer over 2-5 Minutes, Starting on Louann 06/03/17 at 0841, For 1 dose, Give in ENDO pre procedure prep area. Irritant., Pre-procedure ondansetron (ZOFRAN) injection 4 mg 4 mg, Intravenous, EVERY 6 HOURS PRN, nausea, vomiting , Administer over 2-5 Minutes, Starting on Louann 06/03/17 at 0929, This is Step 1 of nausea and vomiting management. If nausea not resolved in 15 minutes, go t o Step 2 prochlorperazine (COMPAZINE). Irritant., Post-procedure ondansetron (ZOFRAN-ODT) ODT tab 4 mg 4 mg, Oral, EVERY 6 HOURS PRN, nausea, v omiting, Starting on Louann 06/03/17 at 0929, This is Step 1 of nausea and vomiting management. If n ausea not resolved in 15 minutes, go to Step 2 prochlorperazine (COMPAZINE). Do not push through foil backing. Peel back foil and gently remove. Place on to ngue immediately. Administration with liquid unnecessary, Post-procedure sodium chloride (PF) 0.9% PF flush 3 mL Given 06/03/2017 10:22 AM CDT 10 mLs 3 mL, Intravenous, EVERY 1 HOUR PRN, line flush, post meds or blood draw, Starting on Louann 06/03/17 at 0841, for peripheral IV flush post IV meds, Pre-procedure Given 06/03/2017 9:06 AM CDT 3 mLs Given 06/03/2017 9:01 AM CDT 3 mLs sodium chloride (PF) 0.9% PF flush 3 mL 3 mL, Intravenous, EVERY 8 HOURS, First dose on Louann 06/03/17 at 0845, And Q1H PRN, to lock peripheral IV dormant line. , Pre-procedure sodium chloride (PF) 0.9% PF flush 3 mL 3 mL, Intravenous, EVERY 1 MIN PRN, line flush, after medication administration, Starting on Louann 06/03/17 at 0841, For peripheral IV flu sh post IV meds, Pre-procedure documented in this encounter Active and Recently Administered Medications Times are shown in CDT. Scheduled Medication Order 06/01/2017 06/02/2017 06/03/2017 0.9% sodium chloride BOLUS 0845 (Canceled Entry - Provider: Orders Generic Provider - Comment: Automatically canceled at discontinue of medication order) Intravenous, 500 mL, ONCE, at 500 mL/hr, Administer over 1 Hours, Louann 06/03/17 at 0845, For 1 dose, ~ For hypotension hypotensive (Systolic Blood Pressure less than 100 mmHg) prior to the procedure. Imme diately recheck Blood Pressure and if Sy stolic Blood Pressure still below 100 mmHg, give IV bolus. ~ For nausea/vomiting, give IV bolus. Notify Provider if IV bolus given., Pre-procedure sodium chloride (PF) 0.9% PF flush 3 mL 0845 (Canceled Entry - Provider: Orders Generic Provider - Comment: Automatically canceled at discontinue of medication order) 3 mL, Intravenous, EVERY 8 HOURS, First dose on Louann 06/03/17 at 0845, And Q1H PRN, to lock peripheral IV dormant line. , Pre-procedure PRN Medication Order 06/01/2017 06/02/2017 06/03/2017 diphenhydrAMINE (BENADRYL) injection 0901 (Canceled Entry - Provider: Alejo Aburto MD) PRN, Starting Louann 06/03/17 at 0902, Intra-procedure fentaNYL (PF) (SUBLIMAZE) injection 0901 (Given - Provider: Alejo Aburto MD)0906 (Given - Provider: Carla Cortez RN - Comment: vormichele) PRN, Starting Louann 06/03/17 at 0901, Intra-procedure flumazenil (ROMAZICON) injection 0.2 mg 0.2 mg, Intravenous, EVERY 1 MIN PRN, be nzodiazepine reversal, over sedation, Starting Louann 06/03/17 at 0929, For 12 hours, Give over 15 seconds. If inadequate response after 45 seconds, may repeat up to a MAX total dose of 1 mg. Continue monit oring until discharge criteria are met for a minimum of 2 hours Irritant., Post-procedure lidocaine (LMX4) kit Topical, EVERY 1 HOUR PRN, mild pain, wi th VAD insertion or accessing implanted port,, Starting Louann 06/03/17 at 0841, For 1 dose, Do NOT give if patient has a history of allergy to any local anesthetic o r any michaela product. Apply 30 min prio r to VAD insertion or port access. MAX Dose: 2.5 gm (?? of 5 gm tube), Pre-procedure lidocaine 1 % 1 mL 1 mL, Other, EVERY 1 HOUR PRN, mild pain with VAD insertion or accessing implanted port., Starting Louann 06/03/17 at 0841, Do NOT give if patient has a history of allergy to any local anesthetic or any ca ine product. MAX dose 1 mL subcutaneous OR intradermal in divided doses., Pre-procedure May continue current IV fluid if patient has IV fluids infusing until discharge. CONTINUOUS PRN, Starting Louann 06/03/17 at 0929, Until Louann 06/03/17 at 1305, Post-procedure midazolam (VERSED) injection 090 1 (Given - Provider: Alejo Aburto MD)09 (Given - Provider: Carla Cortez RN - Comment: vorb) PRN, Starting Louann 06/03/17 at 0901, Intra-procedure naloxone (NARCAN) injection 0.1-0.4 mg 0.1-0.4 mg, Intravenous, EVERY 2 MIN PRN , opioid reversal, Starting Louann 06/03/17 at 0929, For 24 hours, For apnea or imminent respiratory arrest: give 0.4 mg IV undiluted Q 2 minutes PRN until desired de gree of reversal is obtained, stop opioi d and notify provider. Continue monitoring until discharge criteria are met for a minimum of 2 hours. For severe sedation, decrease in respiratory depth, quality or Respiratory Rate less than 8: give 0. 1 mg IV Q 2 minutes x 3 doses, stop opioid and notify provider. Try to minimize reversal of analgesia especially in end-of-life patients. Continue monitoring unti l discharge criteria are met for a minimum of 2 hours, Post-proc edure ondansetron (ZOFRAN) injection 4 mg (COMPLETED) 102 (Given - Provider: Cathi Anglin RN - Comment: in recovery room for feeling nauseated when tried to get up/mf) 4 mg, Intravenous, ONCE PRN, nausea, vom iting, Administer over 2-5 Minutes, Starting Louann 06/03/17 at 0841, For 1 dose, Give in ENDO pre procedure prep area. Irritant., Pre-procedure ondansetron (ZOFRAN) injection 4 mg(Linked Group 1) 4 mg, Intravenous, EVERY 6 HOURS PRN, na usea, vomiting, Administer over 2-5 Minutes, Starting Louann 717 at 0929, This is Step 1 of nausea and vomiting management. If nausea not resolved in 15 minutes, go to Step 2 prochlorperazine (COMPAZINE). Irritant., Post-proc edure ondansetron (ZOFRAN-ODT) ODT tab 4 mg(Linked Group 1) 4 mg, Oral, EVERY 6 HOURS PRN, nausea, v omiting, Starting Louann 717 at 0929, This is Step 1 of nausea and vomiting management. If nausea not resolved in 15 minutes, go to Step 2 prochlorperazine (COMP AZINE). Do not push through foil backing . Peel back foil and gently remove. Place on tongue immediately. Administration with liquid unnecessary, Post-procedure sodium chloride (PF) 0.9% PF flush 3 mL 0901 (Given - Provider: Alejo Aburto MD)0906 (Given - Provider: Carla Cortez, ODESSA)1022 (Given - Provider: Cathi Anglin RN) 3 mL, Intravenous, EVERY 1 HOUR PRN, enid e flush, post meds or blood draw, Starting Louann 7 at 0841, for peripheral IV flush post IV meds, Pre-procedure sodium chloride (PF) 0.9% PF flush 3 mL 3 mL, Intravenous, EVERY 1 MIN PRN, line flush, after medication administration, Starting Louann 717 at 0841, For peripheral IV flush post IV meds, Pre-procedure sodium chloride (PF) 0.9% PF flush 3 mL 3 mL, Intravenous, EVERY 1 MIN PRN, line flush, after medication administration. For peripheral IV flush post IV meds, Starting Louann 717 at 0929, Post-procedure Linked Groups Order Group 1: ondansetron (ZOFRAN-ODT) ODT tab 4 mgJump to med 4 mg, Oral, EVERY 6 HOURS PRN, nausea, v omiting, Starting Louann 717 at 0929
This is Step 1 of nausea and vomiting management. If nausea not resolved in 15 minutes, go to St ep 2 prochlorperazine (COMPAZINE). Do no t push through foil backing. Peel back foil and gently remove. Place on tongue immediately. Administration with liquid unnecessary
Post-procedure Or ondansetron (ZOFRAN) injection 4 mgJump to med 4 mg, Intravenous, EVERY 6 HOURS PRN, na usea, vomiting, Administer over 2-5 Minutes, Starting Louann 06/03/17 at 0929
This is Step 1 of nausea and vomiting management. If nausea not resolved in 15 minutes, go to Step 2 prochlorperazine (COMPAZINE). Irritant.
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
--- OUTSIDE RECORDS SUMMARY | 2022-08-20 14:27 | XMS_ITS | Encounter Summary ---
:1945 Author Organization [place] Address [address] [place] [address] Care Team Providers Name Role Phone Simon Claros MD Primary Care Provider Simon Claros MD Unavailable Simon Claros MD Unavailable Encounter Details Date Type Department Care Team Description 11/11/2017 Orders [facility] Iggy Dodd Pers onal history of Urology Clinic urinary tract [place] [address] infection (Primary Dx) [address] [facility] [address] [place] [phone] Social History Tobacco Use Types Packs/Day Years [...] Description 10/26/2022 Lab Oncology Yris Perez MD [address] [place] [id number] (Wo rk) 11/03/2022 Oncology Visit Oncology Yris Perez MD [address] [address] (Wo rk) documented as of this encounter Results (ABNORMAL) UA without Microscopic (11/16/2017 9:55 AM SENIOR RECRUITER) [facility] Method Time Signature Color Urine Yellow 11/16/2017 [facility] 9:59 AM [facility] Appearance Urine Clear 11/16/2017 [facility] 9:59 AM [facility] Glucose Urine Negative NEG^Negat 11/16/2017 [facility] dee mg/dL 9:59 AM [facility]EN[facility] RE[facility] Bilirubin Urine Negative NEG^Negat 11/16/2017 [facility] dee 9:59 AM [facility] Ketones Urine Negative NEG^Negat 11/16/2017 [facility] dee mg/dL 9:59 AM SENIOR RECRUITER [facility] Specific [place] 1.010 1.003 - 11/16/2017 [facility] Urine 1.035 9:59 AM SENIOR RECR[facility] Blood Urine Small (A) NEG^Negat 11/16/2017 [facility] dee 9:59 AM SEN[facility] RECR[facility] pH Urine 6.0 5.0 - 7.0 11/16/2017 [facility] pH 9:59 AM [facility] Protein Albumin Negative NEG^Negat 11/16/2017 [facility] Urine dee mg/dL 9:59 AM SENIOR RECRUITER [facility] Urobilinogen 0.2 0.2 - 1.0 11/16/2017 [facility] Urine EU/dL 9:59 AM SENIOR RECRUITER [facility] Nitrite Urine Negative NEG^Negat 11/16/2017 [facility] dee 9:59 AM SEN[facility] RECRU[facility] Leukocyte Negative NEG^Negat 11/16/2017 [facility] Esterase Urine dee 9:59 AM SEN[facility] RECR[facility] Source Midstream 11/16/2017 [facility] Urine 9:59 AM [facility] Specimen (Source) Anatomical Collection Method Collection Time Re ceived Time Location / / Volume Laterality Examination of 11/16/2017 9:55 11/16/2017 9:56 [place]stream urine AM SENIOR RECRUITER AM SENIOR RECRUITER specimen (procedure) Iggy Dodd MD LAB - URINE ORDERABLES Performing Organization Address City/State/ZIP Code Phon e Number [facility] [address] [place] [address] [facility] [address] documented in this encounter Visit Diagnoses Diagnosis Personal history of urinary tract infect ion - Primary Personal history of urinary (tract) infe ction documented in this encounter Additional Health Concerns Infection Onset Date Last Indicated Resolved Time 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
--- OUTSIDE RECORDS SUMMARY | 2022-08-20 14:27 | XMS_ITS | Encounter Summary ---
:1945 Author Organization [place] Address [address] [place] [place] [address] Care Team Providers Name Role Phone Simon Claros MD Primary Care Provider Simon Claros MD Unavailable Simon Claros MD Unavailable Reason for Visit Reason Onset Date Comments Copy of patient Urine Culture 07/28/2017 Encounter Details Date Type Department Care Team Description 07/28/2017 Telephone [facility] Simon Claros, Copy o f patient Urine Clinic [facility] HINES Culture [address] [facility], [address] [place] [address] [place] [phone] Social History Tobacco Use Types Packs/Day Years Used Date Passive Smoke Exposure - Never Smoker Smokeless Tobacco: Never Used Alcohol Use Standard Drinks/Week Comments No 0 (1 standard drink = 0.6 oz pure alcoho l) Sex Assigned at Date Recorded Female 01/27/2022 12:36 PM CDT documented as of this encounter Miscellaneous Notes Telephone Encounter - Twila Jansen CMA - 07/28/2017 1:19 PM CDT Spoke with patient and per her verbal okay to fax most recent UA labs. Cathleen Jansen- HERBIE Telephone Encounter - Paris Villalpando - 07/28/2017 1:04 PM CDT Reason for Call: Other patient is at [facility] in [place]. She is being seen for a UTI and the doctor would like us to send results of 06/08 urine culture to their clinic. He would like to use this to determine what medications to use. Detailed comments: please fax to: [phone] Call taken on 07/28/2017 at 1:04 PM by Paris Villalpando . 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
--- OUTSIDE RECORDS SUMMARY | 2022-08-20 14:27 | XMS_ITS | Encounter Summary ---
:1945 Author Organization [place] Address [address] [facility] [place] [address] Care Team Providers Name Role Phone Simon Claros MD Primary Care Provider Simon Claros MD Unavailable Simon Claros MD Unavailable Reason for Visit Reason Comments Toenail right great toe [id number] on the medial side right 5th toe worried about nail fungus Encounter Details Date Type Department Care Team Description 04/21/2017 Office Visit [facility] Deidra Whitehead, Right f oot pain (Primary Dx); [facility] [facility], Podiatry/Foot Ingrown nail of great toe of right foot [address] [place] [address] [address] [phone] [facility] [address] [place], [place] [address] (Wo rk) Social History Tobacco Use Types [...] Sign Reading Time Taken Comments Blood Pressure 124/70 04/21/2017 1:04 PM CDT Pulse - - Temperature - - Respiratory Rate - - Oxygen Saturation - - Inhaled Oxygen Concentration - - Weight 67 kg (147 lb 12.8 oz) 04/21/2017 1:04 PM CDT Height 167 cm (5' 5.75) 04/21/2017 1:04 PM CDT Body Mass Index 24.04 04/21/2017 1:04 PM CDT documented in this encounter Patient Instructions Patient InstructionsCarson Kingston - 04/21/2017 1:[address] [facility] SCHEDULE Wednesday [facility] [address] [place] [address] P: [phone] F: [phone] [facility] [address] [place] [address] P: [phone] F: [phone] [facility] [address] [place] [address] P: [phone] F: [phone] WEDNESDAY AM WEDNESDAY PM SURGERY [facility] [place] [address] [facility] [address] [place] [address] P: [phone] [facility] [address] [place] [address] P: [phone] F: [phone] Surgery [phone] Appointment [phone] General After Hours: Patient [phone] Body Mass Index (BMI) Many things can cause foot and ankle problems. Foot structure, activity level, foot mechanics and injuries are common causes of pain. One very important issue that often goes unmentioned, is body weight. Extra weight can cause increased stress on muscles, ligaments, bones and tendons. Sometimes just a few extra pounds is all it takesto put one over her/his threshold. Without reducing that stress, it can be difficult to alleviate pain. Some people are uncomfortable addressing this issue, but we feel it is important for you to think about it. As Foot & Ankle specialists, our job is addressing the lower extremity problem and possible causes. Regarding extra body weight, we encourage patients to discuss diet and weight management plans with their primary care doctors. It is this team approach that gives you the best opportunity for pain relief and getting you back on your feet. INGROWN TOENAILS When a toenail is ingrown, [...] when running or walking briskly. INGROWN TOENAIL POSTOPERATIVE INSTRUCTIONS ?? Go directly home and elevate the [...] chemical burn. ?? Please call with questions. documented in this encounter Progress Notes Deidra Whitehead DPM, Podiatry/Foot and Ankle Surgery - 04/21/2017 1:00 PM CDT PATIENT HISTORY: Darshana Brooks is a 71 year old female who presents to clinic for pain to right great toe. Notes that it has been going on for years. Pain is 2/10 but can be 5/10 at its worst. Deniesinjury. Pain is intermittent. She notes that it will be sore when the sheets rub it at night. Deniesfever, chills. Would like to know what can be done for it. Review of Systems: Patient denies fever, chills, rash, wound, stiffness, limping, numbness, weakness, heart burn, blood in stool, chest pain with activity, calf pain when walking, shortness of breath with activity, chronic cough, easy bleeding/bruising, swelling of ankles, excessive thirst, fatigue, de pression, anxiety. PAST MEDICAL HISTORY: Past Medical History: Diagnosis Date ??? COPD (chronic obstructive pulmonary disease) (H) ??? Hypertension PAST SURGICAL HISTORY: Past Surgical History: Procedure Laterality Date ??? ARTHROPLASTY HIP ANTERIOR Right 03/10/2016 Procedure: ARTHROPLASTY HIP ANTERIOR; Surgeon: Wayne Estevez MD; Location: OR ??? BIOPSY NODE SENTINEL Right 02/08/2017 Procedure: BIOPSY NODE SENTINEL; Surgeon: Jordin Atkins MD; Location: [place] ??? 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 LUMPECTOMY BREAST WITH SEED LOCALIZATION Right 02/08/2017 Procedure: LUMPECTOMY BREAST WITH SEED LOCALIZATION; Surgeon: Jordin Atkins MD; Location: [place] MEDICATIONS: Current Outpatient Prescriptions: ??? albuterol (PROAIR HFA/PROVENTIL HFA/VENTOLIN HFA) 108 (90 BASE) MCG/ACT Inhaler, Inhale 2-4 puffs into the lungs, Disp: , Rfl: ??? loratadine (CLARITIN) 10 MG tablet, Take 10 mg by mouth, Disp: , Rfl: ??? Cholecalciferol (VITAMIN D3 PO), Take 2,000 Units by mouth daily, Disp: , Rfl: ??? Webster-3 Fatty Acids (OMEGA ESSENTIALS BASIC) LIQD, Take 6 mLs by mouth daily, Disp: , Rfl: ??? NONFORMULARY, Take 1 Tablespoonful by mouth daily ALL NATURAL GREENS, Disp: , Rfl: ??? NONFORMULARY, Take 29 mLs by mouth daily LIQUIDRIVE ANTIOXIDENT (1 ounce), Disp: , Rfl: ??? NONFORMULARY, Take 5 mLs by mouth daily LIPOSOMAL GLUTATHIONE, Disp: , Rfl: ??? NONFORMULARY, Take 6 mLs by mouth daily LIPOSOMAL CURCUMIN, Disp: , Rfl: ??? HYDROcodone-acetaminophen (NORCO) 5-325 MG per tablet, Take 1-2 tablets by mouth every 4 hours as needed for other (Moderate to Severe Pain) (Patient not taking: Reported on 02/23/2017), Disp: 20 tablet, Rfl: 0 No current facility-administered medications for this visit. Facility-Administered Medications Ordered in Other Visits: ??? dexamethasone (DECADRON) injection 20 mg, 20 mg, EPIDURAL, Once, Blayne Doyle MD ??? iopamidol (ISOVUE-M 200) solution 10 mL, 10 mL, EPIDURAL, Once, Blayne Doyle MD ??? lidocaine (PF) (XYLOCAINE) 1 % injection 50 mg, 5 mL, Subcutaneous, Once, Blayne Doyle MD ??? lidocaine (PF) (XYLOCAINE) 1 % injection 30 mg, 3 mL, EPIDURAL, Once, Blayne Doyle MD ??? dexamethasone (DECADRON) 10 MG/ML injection, , , , ALLERGIES: Allergies Allergen Reactions ??? Other [No Clinical Screening - See Comments] PN: LW Other1: -latex:nasal congestion, eyes watering. LW Other2: -canteloupe, horses, cats, dust, molds, trees ??? Sulfamethoxazole Heartburn ??? Chlorhexidine Gluconate [Chlorhexidine] Rash ??? Latex Rash Other reaction(s): Other, see comments PN: sneezing, runny nose, SOCIAL HISTORY: Social History Social History ??? Marital status: Spouse name: N/A ??? Number of children: N/A ??? Years of education: N/A Occupational History ??? Not on file. Social History Main Topics ??? Smoking status: Passive Smoke Exposure - Never Smoker ??? Smokeless tobacco: Never Used ??? Alcohol use No ??? Drug use: No ??? Sexual activity: Not Currently Partners: Male Other Topics Concern ??? Not on file Social History Narrative FAMILY HISTORY: Family History Problem Relation Age of Onset ??? DIABETES Mother ??? Hypertension Mother ??? DIABETES Father ??? Asthma Father ??? Breast Cancer Sister ??? Other Cancer Brother EXAM:Vitals: BP 124/70 Ht 1.67 m (5' 5.75) Wt 67 kg (147 lb 12.8 oz) BMI 24.04 kg/m2 BMI= Body mass index is 24.04 kg/(m^2). General appearance: Patient is alert and fully cooperative with history & exam. No sign of distress is noted during the visit. Psychiatric: Affect is pleasant & appropriate. Patient appears motivated to improve health. Respiratory: Breathing is regular & unlabored while sitting. HEENT: Hearing is intact to spoken word. Speech is clear. No gross evidence of visual impairment that would impact ambulation. Dermatologic: medial border of right great toenail is incurvated. Pain on palpation. Vascular: DP & PT pulses are intact & regular bilaterally. No significant edema or varicosities noted. CFT and skin temperature is normal to both lower extremities. Neurologic: Lower extremity sensation is intact to light touch. No evidence of weakness or contracture in the lower extremities. No evidence of neuropathy. Musculoskeletal: Patient is ambulatory without assistive device or brace. No gross ankle deformity noted. No foot or ankle joint effusion is noted. ASSESSMENT: Right foot pain Ingrown nail of great toe of right foot PLAN: Reviewed [facility] in [facility]. The potential causes and nature of an [...] all questions, the patient elected to have the border removed. Will soak 2x a day for 2 weeks and apply antibiotic cream.. PRocedure: After verbal consent, the right big toe was anesthetized with 5cc's of 1% lidocaine plain. A tourniquet was applied to the toe. The medial border was then raised from the nail bed and then cut the length of the nail. The offending nail border was then removed. Bacitracin was applied to thenail bed. The tourniquet was removed. Bandage was applied to the toe. The patient tolerated the procedure and anesthesia well. Deidra Whitehead DPM, Podiatry/Foot and Ankle Surgery documented in this encounter Nursing Notes Carson Kingston - 04/21/2017 1:00 PM CDT Chief Complaint Patient presents with ??? Toenail right great toe [id number] on the medial side right 5th toe worried about nail fungus Initial BP 124/70 Ht 5' 5.75 (1.67 m) Wt 147 lb 12.8 oz (67 kg) BMI 24.04 kg/m2 Estimated body mass index is 24.04 kg/(m^2) as calculated from the following: Height as of this encounter: 5' 5.75 (1.67 m). Weight as of this encounter: 147 lb 12.8 oz (67 kg). Medication Reconciliation: complete Carson Kingston MA documented in this encounter Plan of Treatment Upcoming Encounters Date Type Specialty Care Team Description 10/26/2022 Lab Oncology Yris Perez MD [address] [facility] [address] [place], [place] [phone] (Wo rk) 11/03/2022 Oncology Visit Oncology Yris Perez MD [address] [facility] [address] [place], [place] [address] (Wo rk) documented as of this encounter Procedures Procedure Name Priority Date/Time Associated Diagnosis Comme nts HC REMOVAL OF NAIL Routine 04/21/2017 1:36 PM CDT Right foot pain PLATE SIMPLE SINGLE Ingrown nail of great toe of right foot documented in this encounter Visit Diagnoses Diagnosis Right foot pain - Primary Pain in limb Ingrown nail of great toe of right foot documented in this encounter Additional Health Concerns Infection Onset Date Last Indicated Resolved Time 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
--- OUTSIDE RECORDS SUMMARY | 2022-08-20 14:27 | XMS_ITS | Encounter Summary ---
:1945 Author Organization [place] Address [address] [facility] [place] [address] Care Team Providers Name Role Phone Simon Claros MD Primary Care Provider Simon Claros MD Unavailable Simon Claros MD Unavailable Reason for Visit Reason Comments UTI Encounter Details Date Type Department Care Team Description 06/08/2017 Office Visit [facility] Jessi Medeiros Dysur ia (Primary Dx) Clinic [facility] [address] [facility], [address] [facility] [address] [place] [address] [place] [address] [place] [id number] Social History Tobacco Use Types Packs/Day Years Used Date Passive Smoke Exposure - Never Smoker Smokeless Tobacco: Never Used Alcohol Use Standard Drinks/Week Comments No 0 (1 standard drink = 0.6 oz pure alcoho l) Sex Assigned at Date Recorded Female 01/27/2022 12:36 PM CDT documented as of this encounter Last Filed Vital Signs Vital Sign Reading Time Taken Comments Blood Pressure 114/65 06/08/2017 2:13 PM CDT Pulse 80 06/08/2017 2:13 PM CDT Temperature 36.4 ??C (97.5 ??F) 06/08/2017 2:13 PM CDT Respiratory Rate - - Oxygen Saturation 96% 06/08/2017 2:13 PM CDT Inhaled Oxygen Concentration - - Weight 68.5 kg (151 lb) 06/08/2017 2:13 PM CDT Height 167.6 cm (5' 6) 06/08/2017 2:13 PM CDT Body Mass Index 24.37 06/08/2017 2:13 PM CDT documented in this encounter Progress Notes Jessi Medeiros PA-C - 06/10/2017 2:33 PM CDT Call pt UTI resistant to cipro so DC cipro I will phone on macrobid that she should start Jessi Medeiros PA-C - 06/08/2017 2:00 PM CDT HPI: pt here with dysuria, freq, urg, coudy urine Sxs since Wednesday She had L flank pain today [place] feverish last night and it was 98.8 She is afebrile today Her last UTI was in Dec Denies any hx of kidney stones. Denies any vaginal itching, odor or d/c Past Medical History: Diagnosis Date ??? Cancer [...] Surgeon: Alejo Aburto MD; Location: GI ??? [employer] SURGERY hysterectomy ??? LUMPECTOMY BREAST WITH SEED LOCALIZATION Right 02/08/2017 Procedure: LUMPECTOMY BREAST WITH SEED LOCALIZATION; Surgeon: Jordin Atkins MD; Location: [place] ??? ORTHOPEDIC SURGERY hip replacement Social History Substance Use Topics ??? Smoking status: Passive Smoke Exposure - Never Smoker ??? Smokeless tobacco: Never Used ??? Alcohol use No Current Outpatient Prescriptions Medication Sig Dispense Refill ??? ciprofloxacin (CIPRO) 250 MG tablet Take 1 tablet (250 mg) by mouth 2 times daily 14 tablet 0 ??? letrozole (FEMARA) 2.5 MG tablet Take 2.5 mg by mouth ??? albuterol (PROAIR HFA/PROVENTIL HFA/VENTOLIN HFA) 108 (90 BASE) MCG/ACT Inhaler Inhale 2-4 puffsinto the lungs ??? loratadine (CLARITIN) 10 MG tablet Take 10 mg by mouth ??? Cholecalciferol (VITAMIN D3 PO) Take 2,000 Units by mouth daily ??? [place]-3 Fatty Acids (OMEGA ESSENTIALS BASIC) LIQD Take 6 mLs by mouth daily ??? NONFORMULARY Take 1 Tablespoonful by mouth daily ALL NATURAL GREENS ??? NONFORMULARY Take 29 mLs by mouth daily LIQUIDRIVE ANTIOXIDENT (1 ounce) ??? NONFORMULARY Take 5 mLs by mouth daily LIPOSOMAL GLUTATHIONE ??? NONFORMULARY Take 6 mLs by mouth daily LIPOSOMAL CURCUMIN Allergies Allergen Reactions ??? Other [No Clinical Screening - See Comments] PN: LW Other1: -latex:nasal congestion, eyes watering. LW Other2: -canteloupe, horses, cats, dust, molds, trees ??? Sulfamethoxazole Heartburn ??? Chlorhexidine Gluconate [Chlorhexidine] Rash ??? Latex Rash Other reaction(s): Other, see comments PN: sneezing, runny nose, FAMILY HISTORY NOTED AND REVIEWED PHYSICAL EXAM: BP 114/65 (BP Location: Left arm, Patient Position: Chair, Cuff Size: Adult Large) Pulse 80 Temp97.5 ??F (36.4 ??C) (Oral) Ht 5' 6 (1.676 m) Wt 151 lb (68.5 kg) SpO2 96% BMI 24.37 kg/m2 Patient appears non toxic No CVAT Results for orders placed or performed in visit on 06/08/17 UA reflex to Microscopic and Culture Result Value Ref Range Color Urine Yellow Appearance Urine Cloudy Glucose Urine Negative NEG mg/dL Bilirubin Urine Negative NEG Ketones Urine Negative NEG mg/dL Specific [place] Urine 1.010 1.003 - 1.035 Blood Urine Moderate (A) NEG pH Urine 7.0 5.0 - 7.0 pH Protein Albumin Urine Negative NEG mg/dL Urobilinogen Urine 0.2 0.2 - 1.0 EU/dL Nitrite Urine Negative NEG Leukocyte Esterase Urine Moderate (A) NEG Source Midstream Urine Urine Microscopic Result Value Ref Range WBC Urine >100 [place] (A) 0 - 2 /HPF RBC Urine O - 2 0 - 2 /HPF Bacteria Urine Few (A) NEG /HPF Assessment and Plan: (R30.0) Dysuria (primary encounter diagnosis) Comment: pos UA. Start cipro 250mg bid, push fluids. UC sent. Plan: UA reflex to Microscopic and Culture, ciprofloxacin (CIPRO) 250 MG tablet, Urine Microscopic, Urine Culture Aerobic Bacterial Jessi Medeiros PA-C documented in this encounter Nursing Notes Veronica Penaloza MA - 06/08/2017 2:00 PM CDT Chief Complaint Patient presents with ??? UTI Initial BP 114/65 (BP Location: Left arm, Patient Position: Chair, Cuff Size: Adult Large) Pulse 80 Temp 97.5 ??F (36.4 ??C) (Oral) Ht 5' 6 (1.676 m) Wt 151 lb (68.5 kg) SpO2 96% BMI 24.37kg/m2 Estimated body mass index is 24.37 kg/(m^2) as calculated from the following: Height as of this encounter: 5' 6 (1.676 m). Weight as of this encounter: 151 lb (68.5 kg). Medication Reconciliation: complete Veronica Penaloza MA documented in this encounter Miscellaneous Notes Addendum Note - Jessi Medeiros PA-C - 06/10/2017 2:33 PM CDT Addended by: JESSI MEDEIROS on: 06/10/2017 02:33 PM Modules accepted: Orders documented in this encounter Plan of Treatment Upcoming Encounters Date Type Specialty Care Team Description 10/26/2022 Lab Oncology Yris Perez MD [address] [place] [phone] (Wo rk) 11/03/2022 Oncology Visit Oncology Yris Perez MD [address] [facility] [address] [place], [place] [address] (Wo rk) documented as of this encounter Procedures Procedure Name Priority Date/Time Associated Comments Diagnosis URINE CULTURE Routine 06/08/2017 2:36 PM Dysuria Results for this CDT procedure are i n the results section. URINE MICROSCOPIC Routine 06/08/2017 2:10 PM Dysuria Resu lts for this CDT procedure are i n the results section. UA MACROSCOPIC WITH STAT 06/08/2017 2:10 PM Dysuria Re sults for this REFLEX TO MICROSCOPIC CDT proced ure are in AND CULTURE the results section. documented in this encounter Results (ABNORMAL) Urine Culture Aerobic Bacterial (06/08/2017 2:36 PM CDT) Component Value Ref Test Analysis Performed At [facility] gist Range Method Time Signature Specimen Midstream Urine [facility] Culture Micro >100,000 colonies/mL Escheri maru coli ESBL ESBL (extended beta lactamase) INFECTIOUS producing organisms require contact precautions. DISEASE (A) DIAGNOSTIC LABORATORY Micro Report FINAL INFECTIOUS Status 06/11/2017 DISEASE DIAGNOSTIC LABORATORY Organism: >100,000 colonies/mL Escheri maru coli ESBL ESBL (extended beta lactamase) INFECTIOUS producing organisms require contact precautions. DISEASE DIAGNOSTIC LABORATORY Specimen Anatomical Collection Method Collection Time Receive d Time (Source) Location / / Volume Laterality Urine specimen 06/08/2017 2:36 PM 017 2:37 (specimen) CDT PM CDT Organism Antibiotic Method Susceptibility >100,000 colonies/ml Ampicillin >=32 Resist ant ug/mL escherichia coli esbl esbl (extended beta lactamase) producing organisms require contact precautions. (veronika) >100,000 colonies/ml Cefazolin >=64 Resist ant escherichia coli esbl Cefazolin VERONIKA breakpoints esbl (extended beta are for the treatment of lactamase) producing uncomplicat ed urinary tract organisms require infections. ? ?For the contact precautions. treatment o f systemic (veronika) infections, plea se contact the laboratory for additional testing. ug/mL >100,000 colonies/ml Cefoxitin <=4 Suscept ible ug/mL escherichia coli esbl esbl (extended beta lactamase) producing organisms require contact precautions. (veronika) >100,000 colonies/ml Ceftazidime >64.0 Resis tant ug/mL escherichia coli esbl esbl (extended beta lactamase) producing organisms require contact precautions. (veronika) >100,000 colonies/ml Ceftriaxone >64.0 Resis tant ug/mL escherichia coli esbl esbl (extended beta lactamase) producing organisms require contact precautions. (veronika) >100,000 colonies/ml Ciprofloxacin >=4 Resista nt ug/mL escherichia coli esbl esbl (extended beta lactamase) producing organisms require contact precautions. (veronika) >100,000 colonies/ml Gentamicin <=1 Suscept ible ug/mL escherichia coli esbl esbl (extended beta lactamase) producing organisms require contact precautions. (veronika) >100,000 colonies/ml Levofloxacin >=8 Resista nt ug/mL escherichia coli esbl esbl (extended beta lactamase) producing organisms require contact precautions. (veronika) >100,000 colonies/ml Nitrofurantoin <=16 Suscep tible ug/mL escherichia coli esbl esbl (extended beta lactamase) producing organisms require contact precautions. (veronika) >100,000 colonies/ml Tobramycin <=1 Suscept ible ug/mL escherichia coli esbl esbl (extended beta lactamase) producing organisms require contact precautions. (veronika) >100,000 colonies/ml Trimethoprim/Sulfamethoxazo >=16/304 Resistant ug/mL escherichia coli esbl le esbl (extended beta lactamase) producing organisms require contact precautions. (veronika) >100,000 colonies/ml Ampicillin/Sulbactam 4 Susc eptible ug/mL escherichia coli esbl esbl (extended beta lactamase) producing organisms require contact precautions. (veronika) >100,000 colonies/ml Piperacillin/Tazo <=4 Susce ptible ug/mL escherichia coli esbl esbl (extended beta lactamase) producing organisms require contact precautions. (veronika) >100,000 colonies/ml Amikacin <=2 Suscept ible ug/mL escherichia coli esbl esbl (extended beta lactamase) producing organisms require contact precautions. (veronika) >100,000 colonies/ml Cefepime >64.0 Resis tant ug/mL escherichia coli esbl esbl (extended beta lactamase) producing organisms require contact precautions. (veronika) >100,000 colonies/ml Meropenem <=0.25 Susc eptible ug/mL escherichia coli esbl esbl (extended beta lactamase) producing organisms require contact precautions. (veronika) >100,000 colonies/ml Ertapenem Susceptible ug/mL escherichia coli esbl esbl (extended beta lactamase) producing organisms require contact precautions. (veronika) Jessi Medeiros PA-C LAB - MICRO GENERAL ORDERABL ES Performing Organization Address City/Special Care Hospital/ZIP Code Phon e Number INFECTIOUS DISEASES [address] [place] [address] DIAGNOSTIC LABORATORY, [facility] [place] [address] [place] [address] 150 INFECTIOUS DISEASE [address] [place], [place] [phone] [place] [address] DIAGNOSTIC LABORATORY (ABNORMAL) Urine Microscopic (06/08/2017 2:10 PM CDT) athologist Signature WBC Urine >100 0 - 2 /HPF [facility] ([facility] RBC Urine O - 2 0 - 2 /HPF [facility] Bacteria Urine Few (A) NEG /HPF [facility] Specimen Anatomical Collection Method Collection Time Receive d Time (Source) Location / / Volume Laterality 06/08/2017 2:10 PM 7 2:11 CDT PM CDT Jessi Medeiros PA-C LAB - URINE ORDERABLES Performing Organization Address [facility]/Special Care Hospital/ZIP Code Phon e Number [facility] [address] [place] [address] (ABNORMAL) UA reflex to Microscopic and Culture (06/08/2017 2:10 PM CDT) [facility] gist Method Time Signature Color Urine Yellow [facility] Appearance Urine Cloudy [facility] Glucose Urine Negative NEG mg/dL [facility] [place] Bilirubin Urine Negative NEG [facility] Ketones Urine Negative NEG mg/dL [facility] Specific [place] 1.010 1.003 - [place] Urine 1.035 [facility] Blood Urine Moderate (A) NEG [facility] pH Urine 7.0 5.0 - 7.0 [place] pH [facility] Protein Albumin Negative NEG mg/dL [place] Urine [facility] Urobilinogen 0.2 0.2 - 1.0 [place] Urine EU/dL [facility] Nitrite Urine Negative NEG [facility] [place] Leukocyte Moderate (A) NEG [place] Esterase Urine [facility] Source Midstream [place] Urine [facility] Specimen Anatomical Collection Method Collection Time Receive d Time (Source) Location / / Volume Laterality Urine specimen 06/08/2017 2:10 PM 017 2:11 (specimen) CDT PM CDT Jessi Medeiros PA-C LAB - URINE ORDERABLES Performing Organization Address City/State/ZIP Code Phon e Number [facility] [place] [address] [place] [id number] documented in this encounter Visit Diagnoses Diagnosis Dysuria - Primary documented in this encounter Additional Health Concerns Infection Onset Date Last Indicated Resolved Time 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, 01/08/2017 9 06/08/17, 08/26/17 documented as of this encounter Care Teams Pulvi Mixer Operator Relationship Specialty Start Date End Date Simon Claros MD PCP - General Internal Medicine 09/22/12 08/20/21 Simon Claros MD PCP - Assigned PCP 06/18/16 01/17/[address] [place] [address] [place] [address] Simon Claros MD Assigned PCP 06/18/16 03/01/[address] [place] [address] [place] [phone] documented as of this encounter
--- OUTSIDE RECORDS SUMMARY | 2022-08-20 14:27 | XMS_ITS | Encounter Summary ---
:1945 Author Organization [place] Address [address] [facility] [place] [address] Care Team Providers Name Role Phone Simon Claros MD Primary Care Provider Simon Claros MD Unavailable Simon Claros MD Unavailable Reason for Visit Reason Onset Date Comments Pt. Information/instruction 03/30/2017 Encounter Details Date Type Department Care Team Description 03/30/2017 Telephone [facility] Simon Claros, Pt. Clinic [place] HINES Information/instruction [address] [facility], [address] [facility] [address] [place] [address] [place] [address] [place] [phone] [address] Social History Tobacco Use Types Packs/Day Years Used Date Passive Smoke Exposure - Never Smoker Smokeless Tobacco: Never Used Alcohol Use Standard Drinks/Week Comments No 0 (1 standard drink = 0.6 oz pure alcoho l) Sex Assigned at Date Recorded Female 01/27/2022 12:36 PM CDT documented as of this encounter Miscellaneous Notes Telephone Encounter - Simon Claros MD - 03/30/2017 12:19 PM CDT U/C from [facility]. Onc +,(s)Cipro.reviewed w/ pt.F'up prn &rtc 2 wks.gb documented in this encounter Plan of Treatment Upcoming Encounters Date Type Specialty Care Team Description 10/26/2022 Lab Oncology Yris Perez MD [address] [phone] (Wo rk) 11/03/2022 Oncology Visit Oncology Yris Perez MD [address] [phone] (Wo rk) documented as of this encounter Visit Diagnoses Diagnosis Dysuria - Primary documented in this encounter Additional Health Concerns Infection Onset Date Last Indicated Resolved Time 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, 01/08/2017 9 06/08/17, 08/26/17 documented as of this encounter Care Teams Chemistry Research Assistant Relationship Specialty Start Date End Date Simon Claros MD PCP - General Internal Medicine 09/22/12 08/20/21 Simon Claros MD PCP - Assigned PCP 06/18/16 01/17/19 [address] [place] [address] [place] [address] Simon Claros MD Assigned PCP 06/18/16 03/01/21 [address] [place] [address] [place] [address] documented as of this encounter
--- OUTSIDE RECORDS SUMMARY | 2022-08-20 14:27 | XMS_ITS | Encounter Summary ---
:1945 Author Organization [place] Address [address] [facility] [place] [address] Care Team Providers Name Role Phone Simon Claros MD Primary Care Provider Simon Claros MD Unavailable Simon Claros MD Unavailable Reason for Visit Reason Onset Date Comments Medication Question 06/10/2017 NItrofurantoin Encounter Details Date Type Department Care Team Description 06/10/[address] [facility] Shira Jackson Med ication Question Nurse Advisors RN (NItrofurantoin) [address] [place] [address] Social History Tobacco Use Types Packs/Day Years Used Date Passive Smoke Exposure - Never Smoker Smokeless Tobacco: Never Used Alcohol Use Standard Drinks/Week Comments No 0 (1 standard drink = 0.6 oz pure alcoho l) Sex Assigned at Date Recorded Female 01/27/2022 12:36 PM CDT documented as of this encounter Miscellaneous Notes Telephone Encounter - Shira Jackson RN - 06/10/2017 9:06 PM CDT Darshana states med ordered earlier today (Nitrofurantoin) is not at her normal pharmacy, wondering ifmed was ordered to the wrong pharmacy? Med reordered to [facility] in [place] as requested, and confirmation of order received electronically. Anamika Jackson RN FNA documented in this encounter Plan of Treatment Upcoming Encounters Date Type Specialty Care Team Description 10/26/2022 Lab Oncology Yris Perez MD [address] [facility] [address] [place] [address] (Wo rk) 11/03/2022 Oncology Visit Oncology Yris Perez MD [address] [facility] [address] [place], [place] [phone] (Wo rk) documented as of this encounter Visit Diagnoses Diagnosis Dysuria documented in this encounter Additional Health Concerns Infection Onset Date Last Indicated Resolved Time 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, 01/08/2017 9 06/08/17, 08/26/17 documented as of this encounter Care Teams Contract Loader Relationship Specialty Start Date End Date Simon Claros MD PCP - General Internal Medicine 09/22/12 08/20/21 Simon Claros MD PCP - Assigned PCP 06/18/16 01/17/19 [address] [place] [address] [place] [address] Simon Claros MD Assigned PCP 06/18/16 03/01/21 [address] [place] [address] [place] [phone] documented as of this encounter
--- OUTSIDE RECORDS SUMMARY | 2022-08-20 14:27 | XMS_ITS | Encounter Summary ---
:1945 Author Organization [place] Address [address] [facility] [place] [address] Care Team Providers Name Role Phone Simon Claros MD Primary Care Provider Simon Claros MD Unavailable Simon Claros MD Unavailable Reason for Visit Reason Onset Date Comments Finger 09/29/2017 Encounter Details Date Type Department Care Team Description 09/29/2017 Telephone [facility] Simon Claros MD [facility] [address] [facility] [address] [facility], [address] [place] [address] [place] [address] [phone] Social History Tobacco Use Types Packs/Day Years Used Date Passive Smoke Exposure - Never Smoker Smokeless Tobacco: Never Used Alcohol Use Standard Drinks/Week Comments No 0 (1 standard drink = 0.6 oz pure alcoho l) Sex Assigned at Date Recorded Female 01/27/2022 12:36 PM CDT documented as of this encounter Miscellaneous Notes Telephone Encounter - Simon Claros MD - 10/03/2017 4:35 PM CST sched appt 10/05 @ 12:30 [facility] Telephone Encounter - Pamella Hood RN - 09/29/2017 2:17 PM CST To PCP: Please see below message. Do you want to see patient back in office? Please advise. Thank you. Pamella Hood, RN HOLE BORER Telephone Encounter - Satinder Maki - 09/29/2017 12:42 PM CST Reason for Call: FYI Detailed comments: patient calling back per 's request and she said her Thumb is not doing any better (trigger finger thumb remains sore) please call her back to discuss Phone Number Patient can be reached at: Home number on file [phone] (home) Best Time: anytime Can we leave a detailed message on this number? YES Call taken on 09/29/2017 at 12:42 PM by Satinder Maki HOLE BORER documented in this encounter Plan of Treatment Upcoming Encounters Date Type Specialty Care Team Description 10/26/2022 Lab Oncology Yris Perez MD [address] [address] (Wo rk) 11/03/2022 Oncology Visit Oncology Yris Perez MD [address] [address] (Wo rk) documented as of this encounter Visit Diagnoses Not on filedocumented in this encounter Additional Health Concerns Infection Onset Date Last Indicated Resolved Time 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, 01/08/2017 9 06/08/17, 08/26/17 documented as of this encounter Care Teams Vp Analysis Relationship Specialty Start Date End Date Simon Claros MD PCP - General Internal Medicine 09/22/12 08/20/21 Simon Claros MD PCP - Assigned PCP 06/18/16 01/17/19 [address] [place] [address] Simon Claros MD Assigned PCP 06/18/16 03/01/21 [address] [place] [address] documented as of this encounter
--- OUTSIDE RECORDS SUMMARY | 2022-08-20 14:27 | XMS_ITS | Encounter Summary ---
:1945 Author Organization [place] Address [address] [facility] [place] [address] Care Team Providers Name Role Phone Simon Claros MD Primary Care Provider Simon Claros MD Unavailable Simon Claros MD Unavailable Reason for Visit Auth/Cert Specialty Diagnoses / Procedures Referred By Contact Refer red To Contact Gastroenterology Diagnoses screening (fv) Rh Endoscopy Procedures COLONOSCOPY [address] [place] [address] Phone: Fax: Referral ID Status Reason Start Date Expiration Date Visits Requ ested Visits Authorized [id number] 1 1 Encounter Details Date Type Department Care Team Description 06/03/2017 Hospital Encounter [facility] Alejo Aburto , Endoscopy Paulo HINES [address] [place], [place] GASTROINTESTINAL [address] [phone] [place], [place] [phone] (Wo rk) Social History Tobacco Use Types [...] Sign Reading Time Taken Comments Blood Pressure 123/72 06/03/2017 10:38 AM CDT Pulse - - Temperature - - Respiratory Rate 15 06/03/2017 10:38 AM CDT Oxygen Saturation 100% 06/03/2017 10:38 AM CDT Inhaled Oxygen Concentration - - [...] needed, you may be told to take [id number] stool softeners. To help relieve pain, antispasmodic [...] the option of having surgery with you. [place] to Colon [facility] Help keep your colon healthy with a diet that includes plenty of high-fiber fruits, vegetables, and whole grains. Drink plenty of liquids like water and juice. Your doctor may also recommend avoiding seeds and nuts. ?? [id number] [facility], [address] [place] [address], [place] [address]. All rights reserved. This information is not [...] Ask yourdoctor about supplemental fiber products. ?? [id number] [facility], [address] [place] [address]. All rights reserved. This information is not [...] by mouth 0 10/2017 daily LIPOSOMAL CURCUMIN Crosby-3 Fatty Acids Take 6 mLs by mouth 0 08/26/2017 (OMEGA ESSENTIALS BASIC) daily LIQD documented as of this encounter H&P Notes Alejo Aburto MD - 06/03/2017 8:55 AM CDT Pre-Endoscopy History and Physical Darshana Brooks Date of : 1945 Age: [age] year [...] Right 03/10/2016 Procedure: ARTHROPLASTY HIP ANTERIOR; Surgeon: Wanye Estevez MD; Location: OR ??? BIOPSY NODE SENTINEL Right 02/08/2017 Procedure: BIOPSY NODE SENTINEL; Surgeon: Jordin Atkins MD; Location: [place] ??? 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 LUMPECTOMY BREAST WITH SEED [...] Units by mouth daily Yes Reported, Patient Crosby-3 Fatty Acids (OMEGA ESSENTIALS BASIC) LIQD Take [...] 10/26/2022 Lab Oncology Yris Perez MD [address] [place] [id number] (Wo rk) 11/03/2022 Oncology Visit Oncology Yris Perez MD [address] [place] [id number] (Wo rk) documented as of this encounter Procedures Procedure Name Priority Date/Time Associated Diagnosis Comme nts COLONOSCOPY 06/03/2017 8:55 AM screen CDT COLONOSCOPY Routine 06/03/2017 8:42 AM Results f or this CDT procedure are i n the results section . documented in this encounter Results COLONOSCOPY (06/03/2017 8:42 AM CDT) [facility] Time Signature COLONOSCOPY [facility] RAD IOLOGY RESULTS Patient Name: Darshana Brooks ? Procedure Date: 06/03/2017 8:42 AM ? Accou nt Number: [id number] Date of : 1945 ?Admit Type: Out patient Age: 71 ? Gender: Female Attending MD: Alejo Aburto MD ?? Total Sedation Time: 15 min. Instrument Name: 136 ? Procedure: ?Colonoscopy Indications: ?High ri sk colon cancer surveillance: Personal ?history of colonic po lyps Providers: ?Alejo Aburto MD (Doc tor) Referring MD: ? Simon Claros MD (Referri patti HINES) Medicines: ?Midazolam [...] The ?[employer] Peds Colonoscope Model #PCF-H190L, ?[place]#136, SN#[id number] was introduced through the ?anus and advanced [...] history of colonic polyps CPT copyright 2016 [employer]. All rights reserved. The codes documented in this report are prelimin vitor and upon varnish blender review may be revised to meet current compliance requirements. Electronically signed by Alejo Aburto MD Alejo Aburto MD 06/03/2017 9:22:35 AM I was physically present for the entire viewing portion of t he exam. Alejo Aburto MD Number of Addenda: 0 Note Initiated On: 06/03/2017 8:42 AM MRN: ?[id number] Procedure Date: ? 06/03/2017 8:42:58 AM Scope [...] 1 mg ondansetron (ZOFRAN) injection 4 mg 4 mg, [...] at 0902, Intra-procedure fentaNYL (PF) (SUBLIMAZE) injection 09 (Given - Provider: Alejo Aburto MD)09 (Given - Provider: Carla Cortez RN - Comment: bo) PRN, Starting Louann 06/03/17 at 0901, Intra-procedure [...] 090 1 (Given - Provider: Alejo Aburto MD)905 (Given - Provider: Carla Cortez, RN - Comment: vorb) PRN, Starting Louann 717 at 0901, Intra-procedure naloxone (NARCAN) injection 0.1-0.4 mg 0.1-0.4 mg, Intravenous, EVERY 2 MIN PRN , opioid reversal, Starting Louann 717 at 0929, For 24 hours, For apnea [...] edure ondansetron (ZOFRAN) injection 4 mg (COMPLETED) 1022 (Given - Provider: Cathi Anglin RN - [...] Carla Cortez, ODESSA)1022 (Given - Provider: Cathi Anglin, RN) 3 mL, Intravenous, EVERY 1 HOUR PRN, enid e flush, post meds or blood draw, Starting Louann 06/03/17 at 0841, for peripheral IV flush post IV meds, Pre-procedure sodium chloride (PF) 0.9% PF flush 3 mL 3 mL, Intravenous, EVERY 1 MIN PRN, line flush, after medication administration, Starting Louann 06/03/17 at 0841, For peripheral IV flush post IV meds, Pre-procedure sodium chloride (PF) 0.9% PF flush 3 mL 3 mL, Intravenous, EVERY 1 MIN PRN, line flush, after medication administration. For peripheral IV flush post IV meds, Starting Louann 06/03/17 at 0929, Post-procedure Linked Groups Order Group 1: ondansetron (ZOFRAN-ODT) ODT tab 4 mgJump to med 4 mg, Oral, EVERY 6 HOURS PRN, nausea, v omiting, Starting Louann 06/03/17 at 0929
This is [...] documented as of this encounter Care Teams Pediatric Lpn Relationship Specialty Start Date End Date Simon Claros MD PCP - General Internal Medicine 09/22/12 08/20/21 Simon Claros MD PCP - Assigned PCP 06/18/16 01/17/19 [address] [place] [address] Simon Claros MD Assigned PCP 06/18/16 03/01/21 [address] [place] [address] documented as of this encounter
--- OUTSIDE RECORDS SUMMARY | 2022-08-20 14:27 | XMS_ITS | Encounter Summary ---
:1945 Author Organization [place] Address [address] [place] [address] Care Team Providers Name Role Phone Simon Claros MD Primary Care Provider Simon Claros MD Unavailable Simon Claros MD Unavailable Reason for Visit Reason Onset Date Comments Symptoms 11/17/2017 Encounter Details Date Type Department Care Team Description 11/17/2017 Telephone [facility] Urology Iggy Dodd MD Symptoms [facility] [place] [address] [place] [address] [place] [address] [place] [address] [phone] Social History Tobacco Use Types Packs/Day Years Used Date Passive Smoke Exposure - Never Smoker Smokeless Tobacco: Never Used Alcohol Use Standard Drinks/Week Comments No 0 (1 standard drink = 0.6 oz pure alcoho l) Sex Assigned at Date Recorded Female 01/27/2022 12:36 PM CDT documented as of this encounter Miscellaneous Notes Telephone Encounter - July Jones LPN - 11/17/2017 11:12 AM FINANCIAL REPORT SERVICE SALES AGENT Patient called nurse line and LM. Returned patient's phone call and spoke with patient. She is taking pyridium currently for burning symptoms. She was instructed to take for a few days to relieve symptoms, if they get worse she was instructed to call our office. July Jones LPN NCIAL REPORT SERVICE SALES AGENT documented in this encounter Plan of Treatment Upcoming Encounters Date Type Specialty Care Team Description 10/26/2022 Lab Oncology Yris Perez MD [address] [facility] [address] [place] [address] (Wo rk) 11/03/2022 Oncology Visit Oncology Yris Perez MD [address] [facility] [address] [place] [address] (Wo rk) documented as of this encounter Visit Diagnoses Not on filedocumented in this encounter Additional Health Concerns Infection Onset Date Last Indicated Resolved Time 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, 01/08/2017 9 06/08/17, 08/26/17 documented as of this encounter Care Teams Insole Cementer Relationship Specialty Start Date End Date Simon Claros MD PCP - General Internal Medicine 09/22/12 08/20/21 Simon Claros MD PCP - Assigned PCP 06/18/16 01/17/19 [address] [place] [address] [place] [phone] Simon Claros MD Assigned PCP 06/18/16 03/01/21 [address] [place] [address] [place] [phone] documented as of this encounter
--- OUTSIDE RECORDS SUMMARY | 2022-08-20 14:27 | XMS_ITS | Encounter Summary ---
:1945 Author Organization [place] Address [address] [facility] [place] [address] Care Team Providers Name Role Phone Simon Claros MD Primary Care Provider Simon Claros MD Unavailable Simon Claros MD Unavailable Reason for Visit Reason Comments UTI recurrent UTI's Encounter Details Date Type Department Care Team Description 10/12/2017 Office Visit [facility] Urology Iggy Dodd MD Dysuria Clinic [address] [place] [address] [place] [address] [phone] Social History Tobacco Use Types Packs/Day Years Used Date Passive Smoke Exposure - Never Smoker Smokeless Tobacco: Never Used Alcohol Use Standard Drinks/Week Comments No 0 (1 standard drink = 0.6 oz pure alcoho l) Sex Assigned at Date Recorded Female 01/27/2022 12:36 PM CDT documented as of this encounter Last Filed Vital Signs Vital Sign Reading Time Taken Comments Blood Pressure 122/76 10/12/2017 9:20 AM [employer] Pulse 80 10/12/2017 9:20 AM [employer] Temperature - - Respiratory Rate - - Oxygen Saturation - - Inhaled Oxygen Concentration - - Weight 68 kg (150 lb) 10/12/2017 9:20 AM [employer] Height 167.6 cm (5' 6) 10/12/2017 9:20 AM [employer] Body Mass Index 24.21 10/12/2017 9:20 AM [employer] documented in this encounter Progress Notes Iggy Dodd MD - 10/12/2017 9:00 AM CST Darshana Brooks is a pleasant 72-year-old female with a history of breast cancer and recurrent urinary tract infections. She denies any fever, back pain or hematuria with these infections. She recently finished a 30 day course of daily Macrodantin. Her typical symptoms are frequency and dysuria with cloudy urine Other past medical history: COPD, hip arthroplasty, hysterectomy, lumpectomy, sentinel node biopsy, secondhand smoke Family history: sister with metastatic breast cancer Medications: Albuterol, anastrozole, vitamin D, Claritin Allergies: Sulfa, chlorhexidine, latex Urinalysis: Normal Cultures-Escherichia coli Exam: Normal appearance, normal vital signs, alert and oriented, normocephalic, normal respirations,neuro grossly intact Assessment: Recurrent bacterial cystitis-not complicated, breast cancer-may see Dr. Garcia in the future Plan: CT scan, office cystoscopy, pelvic examination Discussed need to rule out anatomic problem, discuss use of vaginal estrogen cream in the future with her oncologist [employer] documented in this encounter Nursing Notes Karen Paredes LPN - 10/12/2017 9:00 AM CST Recurrent UTIS has just completed on 30 days of Macrobid. No symptoms today. Karen Paredes LPN [employer] documented in this encounter Plan of Treatment Upcoming Encounters Date Type Specialty Care Team Description 10/26/2022 Lab Oncology Yris Perez MD [address] [facility] [address] [place], [place] [address] (Wo rk) 11/03/2022 Oncology Visit Oncology Yris Perez MD [address] [facility] [address] [place], [place] [address] (Wo rk) documented as of this encounter Procedures Procedure Name Priority Date/Time Associated Comments Diagnosis URINE MACROSCOPIC Routine 10/12/2017 9:15 AM Dysuria Resu lts for this ONLY [employer] procedure are i n the results section. documented in this encounter Results CT Abdomen Pelvis w/o & w Contrast (11/12/2017 9:24 AM [employer]) Anatomical Region Laterality Modality Abdomen/Pelvis, SUBRAD CT BODY, UMP CT ABDOMEN PELVIS, Computed Tomography RAD CT Specimen (Source) Anatomical Location Collection Method / Collectio n Time Received Time / Laterality Volume Impressions 11/12/2017 11:01 AM [employer] IMPRESSION: 1. No acute findings. 2. Duplicated right collecting system. 3. Small, elongated diverticular outpouc bhaskar along the right posterolateral aspect of the urinary ke dder. 4. Colonic diverticulosis. 5. Fatty infiltration of the liver. DUARTE ZHENG MD Narrative 11/12/2017 11:01 AM [employer] CT ABDOMEN AND PELVIS WITHOUT AND WITH [...] findings. No destructive bone lesions. Procedure Note Duarte Zheng MD - 11/12/2017F ormatting of this [...] diverticulosis. 5. Fatty infiltration of the liver. DUARTE ZHENG MD Iggy Dodd MD IMG CT ORDERABLES (ABNORMAL) UA without Microscopic (10/12/2017 9:15 AM [facility]) [facility] Method Time Signature Color Urine Yellow 10/12/2017 [facility] 9:18 AM [facility] Appearance Urine Clear 10/12/2017 [facility] 9:18 AM [facility] Glucose Urine Negative NEG^Negat 10/12/2017 [facility] dee mg/dL 9:18 AM [facility] Bilirubin Urine Negative NEG^Negat 10/12/2017 [facility] dee 9:18 AM [facility] Ketones Urine Negative NEG^Negat 10/12/2017 [facility] dee mg/dL 9:18 AM [facility] Specific [place] 1.020 1.003 - 10/12/2017 [facility] Urine 1.035 9:18 AM [employer] [facility] Blood Urine Small (A) NEG^Negat 10/12/2017 [facility] dee 9:18 AM [employer] [facility] pH Urine 5.5 5.0 - 7.0 10/12/2017 [facility] pH 9:18 AM [employer] [facility] Protein Albumin Negative NEG^Negat 10/12/2017 [facility] Urine dee mg/dL 9:18 AM [employer] [facility] Urobilinogen 0.2 0.2 - 1.0 10/12/2017 [facility] Urine EU/dL 9:18 AM [employer] [facility] Nitrite Urine Negative NEG^Negat 10/12/2017 [facility] dee 9:18 AM [employer] [facility] Leukocyte Negative NEG^Negat 10/12/2017 [facility] Esterase Urine dee 9:18 AM [employer] [facility] Source Midstream 10/12/2017 [facility] Urine 9:18 AM [employer] [facility] Specimen (Source) Anatomical Collection Method Collection Time Re ceived Time Location / / Volume Laterality Examination of 10/12/2017 9:15 10/12/2017 9:16 midstream urine AM [employer] AM [employer] specimen (procedure) Iggy Dodd MD LAB - URINE ORDERABLES Performing Organization Address City/State/ZIP Code Phon e Number [facility] [address] [place] [phone] [facility] [address] documented in this encounter Visit Diagnoses Diagnosis Dysuria Dysuria documented in this encounter Additional Health Concerns Infection Onset Date Last Indicated Resolved Time 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, 01/08/2017 9 06/08/17, 08/26/17 documented as of this encounter Care Teams Laboratory Miller Relationship Specialty Start Date End Date Simon Claros MD PCP - General Internal Medicine 09/22/12 08/20/21 Simon Claros MD PCP - Assigned PCP 06/18/16 01/17/19 [address] [facility] [address] [place] [phone] Simon Claros MD Assigned PCP 06/18/16 03/01/21 [address] [facility] [address] [place] [address] documented as of this encounter
--- OUTSIDE RECORDS SUMMARY | 2022-08-20 14:27 | XMS_ITS | Encounter Summary ---
:1945 Author Organization [place] Address [address] [facility] [place] [address] Care Team Providers Name Role Phone Simon Claros MD Primary Care Provider Simon Claros MD Unavailable Simon Claros MD Unavailable Reason for Visit (Routine) - Closed Specialty Diagnoses / Procedures Referred By Contact Refer red To Contact Radiology / Radiology. Diagnoses Epic order, sb pt. Faxed nurse alert on 04-08-17 Rh Xra y Rscc Procedures XR LUMBAR EPIDURAL INJECTION [address] [facility] [address] [place] [address] Phone: Fax: Referral ID Status Reason Start Date Expiration Date Visits Requ ested Visits Authorized [id number] Closed 04/14/2017 04/14/2018 1 1 Encounter Details Date Type Department Care Team Description 04/21/2017 Hospital Encounter [facility] Wayne Estevez ar radiculopathy [facility] Imaging MD S[place] [address] [facility] [address] OR[place]OPED[place], [place] [address] [address] [address] [place] [address] Social History Tobacco Use Types Packs/Day Years Used Date Passive Smoke Exposure - Never Smoker Smokeless Tobacco: Never Used Alcohol Use Standard Drinks/Week Comments No 0 (1 standard drink = 0.6 oz pure alcoho l) Sex Assigned at Date Recorded Female 01/27/2022 12:36 PM CDT documented as of this encounter Last Filed Vital Signs Vital Sign Reading Time Taken Comments Blood Pressure 111/67 04/21/2017 9:17 AM CDT Pulse 75 04/21/2017 9:17 AM CDT Temperature - - Respiratory Rate - - Oxygen Saturation - - Inhaled Oxygen Concentration - - Weight - - Height - - Body Mass Index - - documented in this encounter Medications at Time [...] other post-operative pain (Moderate to Severe Pain) NONFORMULARY Take 1 Tablespoonful 0 by mouth daily ALL NATURAL GREENS NONFORMULARY Take 29 mLs by mouth 0 daily LIQUIDRIVE ANTIOXIDENT (1 ounce) NONFORMULARY Take 5 mLs by mouth 0 10/2017 daily LIPOSOMAL GLUTATHIONE NONFORMULARY Take 6 mLs by mouth 0 10/2017 daily LIPOSOMAL CURCUMIN Heron-3 Fatty Acids Take 6 mLs by mouth 0 08/26/2017 (OMEGA ESSENTIALS BASIC) daily LIQD documented as of this encounter Progress Notes Timmy Ellis RN - 04/21/2017 9:40 AM CDT After discussing symptoms and procedure at length with Dr Doyle and patient it was decided that since her pain was significantly better we would hold off on the injection. documented in this encounter Plan of Treatment Upcoming Encounters Date Type Specialty Care Team Description 10/26/2022 Lab Oncology Yris Perez MD [address] [place] [id number] (Wo rk) 11/03/2022 Oncology Visit Oncology Yris Perez MD [address] [facility] [address] [place], [place] [address] (Wo rk) documented as of this encounter Visit Diagnoses Diagnosis Lumbar radiculopathy Thoracic or lumbosacral neuritis or radi culitis, unspecified documented in this encounter Additional Health Concerns Infection Onset Date Last Indicated Resolved Time 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, 01/08/2017 9 06/08/17, 08/26/17 documented as of this encounter Care Teams Echocardiograph Tech Relationship Specialty Start Date End Date Simon Claros MD PCP - General Internal Medicine 09/22/12 08/20/21 Simon Claros MD PCP - Assigned PCP 06/18/16 01/17/[address] [place] [address] [place] [address] Simon Claros MD Assigned PCP 06/18/16 03/01/21 [address] [place] [address] [place] [address] documented as of this encounter
--- OUTSIDE RECORDS SUMMARY | 2022-08-20 14:27 | XMS_ITS | Encounter Summary ---
:1945 Author Organization [place] Address [address] [facility] [place] [address] Care Team Providers Name Role Phone Simon Claros MD Primary Care Provider Simon Claros MD Unavailable Simon Claros MD Unavailable Reason for Visit Reason Comments RECHECK COPD Encounter Details Date Type Department Care Team Description 10/05/2017 Office Visit [facility] Simon Claros Chroni c obstructive pulmonary disease, unspecified COPD type (H) (Primary Dx); Clinic [facility] HINES Trigger finger, acquired [address] [facility], [address] [facility] [address] [place] [address] [place] [phone] Social History Tobacco Use Types Packs/Day Years Used Date Passive Smoke Exposure - Never Smoker Smokeless Tobacco: Never Used Alcohol Use Standard Drinks/Week Comments No 0 (1 standard drink = 0.6 oz pure alcoho l) Sex Assigned at Date Recorded Female 01/27/2022 12:36 PM CDT documented as of this encounter Last Filed Vital Signs Vital Sign Reading Time Taken Comments Blood Pressure 127/78 10/05/2017 12:32 PM FUNDING COORDINATOR Pulse 71 10/05/2017 12:32 PM FUNDING COORDINATOR Temperature 36.3 ??C (97.3 ??F) 10/05/2017 12:32 PM FUNDING COORDINATOR Respiratory Rate - - Oxygen Saturation 97% 10/05/2017 12:32 PM FUNDING COORDINATOR Inhaled Oxygen Concentration - - Weight 68 kg (150 lb) 10/05/2017 12:32 PM FUNDING COORDINATOR Height 166.4 cm (5' 5.5) 10/05/2017 12:32 PM FUNDING COORDINATOR Body Mass Index 24.58 10/05/2017 12:32 PM FUNDING COORDINATOR documented in this encounter Progress Notes Twila Jansen CMA - 10/05/2017 12:30 PM CST SUBJECTIVE: Darshana Brooks is a 72 year old female who presents to clinic today for the following health issues: Trigger finger ?? Duration: x 3-4 weeks sx's presented ?? Description (location/character/radiation): right thumb ?? Intensity: severe ?? Accompanying signs and symptoms: slight swelling. Pain to joint bending. ?? History (similar episodes/previous evaluation): None ?? Precipitating or alleviating factors: wrapped ?? Therapies tried and outcome: wrapped and stabilized, rested thumb. Pt presents with ongoing pain in first finger of right hand for the last 3-4 weeks. Tape was appliedto keep thumb straight for two weeks which improved pain, but when removed pain returned. She felt asnap in her DIP joint this morning which worsened pain. When it snaps she has to manually push thumb back into straight position. Recent UTI has been controlled except for one day within the lat week she hs noticed cloudy urine. She is continuing medication as directed. Problem list and histories reviewed & adjusted, [...] Alejo Aburto MD; Location: [facility] ??? STEEL BOX TOE INSERTER SURGERY hysterectomy ??? LUMPECTOMY BREAST WITH SEED LOCALIZATION Right 02/08/2017 Procedure: LUMPECTOMY BREAST WITH SEED LOCALIZATION; Surgeon: Jordin Atkins MD; Location: [facility] ??? ORTHOPEDIC SURGERY hip replacement Social History Substance Use Topics ??? Smoking status: Passive Smoke Exposure - Never Smoker ??? Smokeless tobacco: Never Used ??? Alcohol use No Family History Problem Relation Age of Onset ??? DIABETES Mother ??? Hypertension Mother ??? DIABETES Father ??? Asthma Father ??? Breast Cancer Sister ??? Other Cancer Brother Current Outpatient Prescriptions Medication Sig Dispense Refill ??? nitroFURantoin, macrocrystal-monohydrate, (MACROBID) 100 MG capsule Take 1 capsule (100 mg) by mouth daily 30 capsule 3 ??? ANASTROZOLE PO Take [...] visit by clinical staff Tobacco Allergies Meds Soc Hx Reviewed and updated as needed this visit by Provider ROS: Constitutional, HEENT, cardiovascular, pulmonary, gi and gu systems are negative, except as otherwise noted. This document serves as a record of the services and decisions personally performed and made by MD Taryn. It was created on her behalf by Janel Morillo, a trained territory sales manager medical. The creation of this document is based the provider's statements to the territory sales manager medical. Janel Morillo October 05, 2017 1:05 PM OBJECTIVE: BP 127/78 (BP Location: Left arm, Patient Position: Sitting, Cuff Size: Adult Regular) Pulse 71 Temp 97.3 ??F (36.3 ??C) (Oral) Ht 1.664 m (5' 5.5) Wt 68 kg (150 lb) SpO2 97% ? No BMI 24.58 kg/m2 Body mass index is 24.58 kg/(m^2). Neck was supple without adenopathy or thyromegaly her carotids were normal without bruits Chest clear to auscultation and percussion Cardiovascular S1 and S2 are physiologic without murmurs or gallops Abdomen bowel sounds were normal. There is no palpable mass or organomegaly Extremities: first finger of right hand pip joint tender to palpation with mild edema from recent episodes of trigger Procedure: area was cleaned with an alcohol swab and betadine was applied to the area. 20 mg medrol was injected at he distal volar crease of the right thumb in the office with no complications. Pulses pedal pulses are as described otherwise his pulses are bilaterally symmetrical throughout without bruits Skin without significant abnormality ASSESSMENT/PLAN: 1. Chronic obstructive pulmonary disease, unspecified COPD type (H) 2. Trigger finger, acquired Advised applying heat for 20 min 2x daily for 3 days. Advised taping for one week and then start exercising in a warm basin of water. Pt will return to clinic for UA in one week to ensure UTI has resolved. Simon Claros MD [facility] The information in this document, created by the territory sales manager medical for me, accurately reflects the services I personally performed and the decisions made by me. I have reviewed and approved this document for accuracy prior to leaving the patient care area. Simon Claros MD 9:51 AM, 10/06/17 ING COORDINATOR documented in this encounter Nursing Notes Twila Jansen, HERBIE - 10/05/2017 12:30 PM CST Chief Complaint Patient presents with ??? RECHECK COPD Initial BP 127/78 (BP Location: Left arm, Patient Position: Sitting, Cuff Size: Adult Regular) Pulse 71 Temp 97.3 ??F (36.3 ??C) (Oral) Ht 5' 5.5 (1.664 m) Wt 150 lb (68 kg) SpO2 97% ? No BMI 24.58 kg/m2 Estimated body mass index is 24.58 kg/(m^2) as calculated from the following: Height as of this encounter: 5' 5.5 (1.664 m). Weight as of this encounter: 150 lb (68 kg). Medication Reconciliation: complete ING COORDINATOR documented in this encounter Plan of Treatment Upcoming Encounters Date Type Specialty Care Team Description 10/26/2022 Lab Oncology Yris Perez MD [address] [phone] (Wo rk) 11/03/2022 Oncology Visit Oncology Yris Perez MD [address] [address] (Wo rk) documented as of this encounter Visit Diagnoses Diagnosis Chronic obstructive pulmonary disease, u nspecified COPD type (H) - Primary Trigger finger, acquired Trigger finger (acquired) documented in this encounter Additional Health Concerns Infection Onset Date Last Indicated Resolved Time 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, 01/08/2017 9 06/08/17, 08/26/17 documented as of this encounter Care Teams Vocational Examiner Relationship Specialty Start Date End Date Simon Claros MD PCP - General Internal Medicine 09/22/12 08/20/21 Simon Claros MD PCP - Assigned PCP 06/18/16 01/17/19 [address] [place] [place] [phone] Simon Claros MD Assigned PCP 06/18/16 03/01/21 [address] [place] [place] [phone] documented as of this encounter
--- OUTSIDE RECORDS SUMMARY | 2022-08-20 14:27 | XMS_ITS | Encounter Summary ---
:1945 Author Organization [place] Address [address] [facility] [place] [address] Care Team Providers Name Role Phone Simon Claros MD Primary Care Provider Simon Claros MD Unavailable Simon Claros MD Unavailable Reason for Visit Reason Comments UTI Encounter Details Date Type Department Care Team Description 09/07/2017 Office Visit [facility] Simon Claros Chroni c obstructive pulmonary disease, unspecified COPD type (H) (Primary Dx); Clinic Edu[facility] HINES Dysuria [address] [facility], [address] [facility] [address] [address] [place] [address] [place] [phone] Social History Tobacco Use Types Packs/Day Years Used Date Passive Smoke Exposure - Never Smoker Smokeless Tobacco: Never Used Alcohol Use Standard Drinks/Week Comments No 0 (1 standard drink = 0.6 oz pure alcoho l) Sex Assigned at Date Recorded Female 01/27/2022 12:36 PM CDT documented as of this encounter Last Filed Vital Signs Vital Sign Reading Time Taken Comments Blood Pressure 133/78 09/07/2017 4:40 PM CDT Pulse 83 09/07/2017 4:40 PM CDT Temperature 37.1 ??C (98.8 ??F) 09/07/2017 4:40 PM CDT Respiratory Rate - - Oxygen Saturation 98% 09/07/2017 4:40 PM CDT Inhaled Oxygen Concentration - - Weight 68 kg (150 lb) 09/07/2017 4:40 PM CDT Height 166.4 cm (5' 5.5) 09/07/2017 4:40 PM CDT Body Mass Index 24.58 09/07/2017 4:40 PM CDT documented in this encounter Progress Notes Twila Jansen CMA - 09/07/2017 4:30 PM CDT SUBJECTIVE: Darshana Brooks is a 72 year old female who presents to clinic today for the following health issues: URINARY TRACT SYMPTOMS ?? Duration: recurrent x x1-2 months ?? Description dysuria, urgency and cloudy urine and achy. ?? Intensity: moderate, severe ?? Accompanying signs and symptoms: Fever/chills: no Flank pain no Nausea and vomiting: no Vaginal symptoms: none Abdominal/Pelvic Pain: no ?? History History of frequent UTI's: YES History of kidney stones: no Sexually Active: no Possibility of : No ?? Precipitating or alleviating factors: None ?? Therapies tried and outcome: course of antibiotics - Ceffinir, nitrofurantoin x2.. And as of mostrecently amoxicillian and Clavuolanate, cranberry juice 2 and increase fluid intake Outcome: Patientstates she thinks sx's are resolved. Patient denies failure to complete full course of antibiotics. She notes UTIs were too close together to check convalescence of illness. Today, patient notes her urine is clear. Endorses nocturia x1 atbaseline and multiple times a night with UTI. Patient notes a history of intermittent vaginal dryness. She reports she will often find the need to urinate again almost immediately after voiding. Patient reports soreness of the right thumb with associated clicking Problem list and histories reviewed & adjusted, as indicated. Additional history: as documented Current Outpatient Prescriptions Medication Sig Dispense Refill ??? ANASTROZOLE PO [...] needed this visit by clinical staffTobacco Allergies Soc Hx Reviewed and updated as needed this visit by Provider ROS: Constitutional, HEENT, cardiovascular, pulmonary, gi and gu systems are negative, except as otherwise noted. This document serves as a record of the services and decisions personally performed and made by GaryL. Hyacinth MD. It was created on his/her behalf by Kim Tian, a trained biomedical equipment technician. The creation of this document is based the provider's statements to the biomedical equipment technician. Scribe Kim Tian 4:59 PM, September 07, 2017 OBJECTIVE: BP 133/78 (BP Location: Left arm, Patient Position: Sitting) Pulse 83 Temp 98.8 ??F (37.1 ??C) (Tympanic) Ht 1.664 m (5' 5.5) Wt 68 kg (150 lb) SpO2 98% ? No BMI 24.58 kg/m2 Body mass index is 24.58 kg/(m^2). Neck was supple without adenopathy or thyromegaly her carotids were normal without bruits Chest clear to auscultation and percussion Cardiovascular S1 and S2 are physiologic without murmurs or gallops Abdomen bowel sounds were normal. There is no palpable mass or organomegaly Extremities nontender without any edema Trigger finger of the right thumb. Pulses pedal pulses are as described otherwise his pulses are bilaterally symmetrical throughout without bruits Skin without significant abnormality ASSESSMENT/PLAN: 1. Chronic obstructive pulmonary disease, unspecified COPD type (H) - Urine Microscopic 2. Dysuria Discussed possible barrier therapies to avoid infection, such as Vaseline or bacitracin, or low doseantibiotic. Advised cranberry juice to help acidify urine. Patient was agreeable to try cranberry juice in combination with barrier and return for antibiotic prescription. - UA reflex to Microscopic and Culture Simon Claros MD [facility] The information in this document, created by the biomedical equipment technician for me, accurately reflects the services I personally performed and the decisions made by me. I have reviewed and approved this document for accuracy prior to leaving the patient care area. Simon Claros MD 4:59 PM, 09/07/17 documented in this encounter Nursing Notes Twila Jansen CMA - 09/07/2017 4:30 PM CDT Chief Complaint Patient presents with ??? UTI Initial BP 133/78 (BP Location: Left arm, Patient Position: Sitting) Pulse 83 Temp 98.8 ??F (37.1 ??C) (Tympanic) Ht 5' 5.5 (1.664 m) Wt 150 lb (68 kg) SpO2 98% ? No BMI 24.58 kg/m2 Estimated body mass index is 24.58 kg/(m^2) as calculated from the following: Height as of this encounter: 5' 5.5 (1.664 m). Weight as of this encounter: 150 lb (68 kg). Medication Reconciliation: complete Cathleen Casiano CMA documented in this encounter Plan of Treatment Upcoming Encounters Date Type Specialty Care Team Description 10/26/2022 Lab Oncology Yris Perez MD [address] [phone] (Wo rk) 11/03/2022 Oncology Visit Oncology Yris Perez MD [address] [facility] [address] [place], [place] [phone] (Wo rk) documented as of this encounter Procedures Procedure Name Priority Date/Time Associated Diagnosis Comme nts URINE MICROSCOPIC Routine 09/07/2017 4:31 PM Chronic obstructi ve Results for this CDT pulmonary disease, procedure are in unspecified COPD the results type (H) section. UA MACROSCOPIC WITH Routine 09/07/2017 4:31 PM Dysuria Re sults for this REFLEX TO CDT procedure are i n MICROSCOPIC AND the results CULTURE section. documented in this encounter Results (ABNORMAL) Urine Microscopic (09/07/2017 4:31 PM CDT) P athologist Signature WBC Urine O - 2 OTO2^O - 2 09/07/2017 [facility] /HPF 4:53 PM CDT [facility] RBC Urine 2-5 (A) OTO2^O - 2 09/07/2017 [facility] /HPF 4:53 PM CDT [facility] Squamous Few FEW^Few 09/07/2017 [facility] Epithelial /LPF /LPF 4:53 PM CDT [facility] Urine Specimen Anatomical Collection Method Collection Time Receive d Time (Source) Location / / Volume Laterality 09/07/2017 4:31 PM 7 4:32 CDT PM CDT Simon Claros MD LAB - URINE ORDERABLES Performing Organization Address City/State/ZIP Code Phon e Number [facility] [address] [facility] [address] [place] [address] (ABNORMAL) UA reflex to Microscopic and Culture (09/07/2017 4:31 PM CDT) Patholo gist Method Time Signature Color Urine Yellow 09/07/2017 [place] [facility] 4:53 PM CDT [facility] Appearance Urine Clear 09/07/2017 [place] [facility] 4:53 PM CDT [facility] Glucose Urine Negative NEG^Negat 09/07/2017 [place] dee mg/dL 4:53 PM CDT [facility] Bilirubin Urine Negative NEG^Negat 09/07/2017 [place] dee 4:53 PM CDT [facility] Ketones Urine Negative NEG^Negat 09/07/2017 [place] dee mg/dL 4:53 PM CDT [facility] Specific [place] 1.010 1.003 - 09/07/2017 [place] Urine 1.035 4:53 PM CDT [facility] Blood Urine Moderate (A) NEG^Negat 09/07/2017 [place] dee 4:53 PM CDT [facility] pH Urine 6.0 5.0 - 7.0 09/07/2017 [place] pH 4:53 PM CDT [facility] Protein Albumin Negative NEG^Negat 09/07/2017 [place] Urine dee mg/dL 4:53 PM CDT [facility] Urobilinogen 0.2 0.2 - 1.0 09/07/2017 [facility] Urine EU/dL 4:53 PM CDT [facility] Nitrite Urine Negative NEG^Negat 09/07/2017 [place] dee 4:53 PM CDT [facility] Leukocyte Trace (A) NEG^Negat 09/07/2017 [place] Esterase Urine dee 4:53 PM CDT [facility] Source Midstream 09/07/2017 [place] Urine 4:53 PM CDT [facility] Specimen (Source) Anatomical Collection Method Collection Time Re ceived Time Location / / Volume Laterality Examination of 09/07/2017 4:31 09/07/2017 4:32 midstream urine PM CDT PM CDT specimen (procedure) Simon Claros MD LAB - URINE ORDERABLES Performing Organization Address City/State/ZIP Code Phon e Number [facility] [address] [place] [address] documented in this encounter Visit Diagnoses Diagnosis Chronic obstructive pulmonary disease, u nspecified COPD type (H) - Primary Dysuria documented in this encounter Additional Health Concerns Infection Onset Date Last Indicated Resolved Time 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, 01/08/2017 9 06/08/17, 08/26/17 documented as of this encounter Care Teams Medical Translator Relationship Specialty Start Date End Date Simon Claros MD PCP - General Internal Medicine 09/22/12 08/20/21 Simon Claros MD PCP - Assigned PCP 06/18/16 01/17/[address] [place] [place] [phone] Simon Claros MD Assigned PCP 06/18/16 03/01/[address] [place] [place] [phone] documented as of this encounter
--- OUTSIDE RECORDS SUMMARY | 2022-08-20 14:27 | XMS_ITS | Encounter Summary ---
:1945 Author Organization [place] Address [address] [facility] [place] [address] Care Team Providers Name Role Phone Simon Claros MD Primary Care Provider Simon Claros MD Unavailable Simon Claros MD Unavailable Encounter Details Date Type Department Care Team Description 10/11/2017 [facility] Iggy Dodd, Giniu daniel (Primary Dx) Urology [facility] HINES [address] [place] [address] [place] [phone] (Wo rk) Social History Tobacco Use [...] 10/26/2022 Lab Oncology Yris Perez MD [address] [address] (Madeleine rk) 11/03/2022 Oncology Visit Oncology Yris Perez MD [address] [address] (Wo rk) documented as of this encounter Results (ABNORMAL) UA without Microscopic (10/12/2017 9:15 AM TURRET LATHE MACHINIST) [facility] Method Time Signature Color Urine Yellow 10/12/2017 [facility] 9:18 AM TURRET LATHE MACHINIST [facility] Appearance Urine Clear 10/12/2017 [facility] 9:18 AM TURRET LATHE MACHINIST [facility] Glucose Urine Negative NEG^Negat 10/12/2017 [facility] dee mg/dL 9:18 AM TURRET LATHE MACHINIST [facility] Bilirubin Urine Negative NEG^Negat 10/12/2017 [place] dee 9:18 AM TURRET LATHE MACHINIST [facility] Ketones Urine Negative NEG^Negat 10/12/2017 [place] dee mg/dL 9:18 AM TURRET LATHE MACHINIST [facility] Specific [place] 1.020 1.003 - 10/12/2017 [place] Urine 1.035 9:18 AM TURRET LATHE MACHINIST [facility] Blood Urine Small (A) NEG^Negat 10/12/2017 [place] dee 9:18 AM TURRET LATHE MACHINIST [facility] pH Urine 5.5 5.0 - 7.0 10/12/2017 [facility] pH 9:18 AM TURRET LATHE MACHINIST [facility] Protein Albumin Negative NEG^Negat 10/12/2017 [facility] Urine dee mg/dL 9:18 AM TURRET LATHE MACHINIST [facility] Urobilinogen 0.2 0.2 - 1.0 10/12/2017 [facility] Urine EU/dL 9:18 AM TURRET LATHE MACHINIST [facility] Nitrite Urine Negative NEG^Negat 10/12/2017 [place] dee 9:18 AM TURRET LATHE MACHINIST [facility] Leukocyte Negative NEG^Negat 10/12/2017 [facility] Esterase Urine dee 9:18 AM TURRET LATHE MACHINIST [facility] Source Midstream 10/12/2017 [facility] Urine 9:18 AM [facility] Specimen (Source) Anatomical Collection Method Collection Time Re ceived Time Location / / Volume Laterality Examination of 10/12/2017 9:15 10/12/2017 9:16 midstream urine AM TURRET LATHE MACHINIST AM TURRET LATHE MACHINIST specimen (procedure) Iggy Dodd MD LAB - URINE ORDERABLES Performing Organization Address City/State/ZIP Code Phon e Number [facility] [address] [place] [address] [facility] [address] documented in this encounter Visit Diagnoses Diagnosis Dysuria - Primary documented in this encounter Additional Health Concerns Infection Onset Date Last Indicated Resolved Time 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, 01/08/2017 9 06/08/17, 08/26/17 documented as of this encounter Care Teams Specimen Preparation Assistant Relationship Specialty Start Date End Date Simon Claros MD PCP - General Internal Medicine 09/22/12 08/20/21 Simon Claros MD PCP - Assigned PCP 06/18/16 01/17/19 [address] [place] [place] [phone] Simon Claros MD Assigned PCP 06/18/16 03/01/21 [address] [place] [phone] documented as of this encounter
--- OUTSIDE RECORDS SUMMARY | 2022-08-20 14:27 | XMS_ITS | Encounter Summary ---
:1945 Author Organization [place] Address [address] [facility] [place] [address] Care Team Providers Name Role Phone Simon Claros MD Primary Care Provider Simon Claros MD Unavailable Simon Claros MD Unavailable Encounter Details Date Type Department Care Team Description 11/20/2017 [facility] Iggy Dodd, Acut e cystitis without Urology Clinic [facility] HINES hematuria (Primary Dx) [address] [place] [address] [place] [phone] Social History Tobacco Use Types Packs/Day [...] 10/26/2022 Lab Oncology Yris Perez MD [address] [address] (Wo rk) 11/03/2022 Oncology Visit Oncology Yris Perez MD [address] [address] (Wo rk) documented as of this encounter Visit Diagnoses Diagnosis Acute cystitis without hematuria - Prima ry Acute cystitis documented in this encounter Additional Health Concerns Infection Onset Date Last Indicated Resolved Time 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, 01/08/2017 9 06/08/17, 08/26/17 documented as of this encounter Care Teams Drug Safety Coordinator Relationship Specialty Start Date End Date Simon Claros MD PCP - General Internal Medicine 09/22/12 08/20/21 Simon Claros MD PCP - Assigned PCP 06/18/16 01/17/19 [address] [place] [phone] Simon Claros MD Assigned PCP 06/18/16 03/01/21 [address] [place] [phone] documented as of this encounter
--- OUTSIDE RECORDS SUMMARY | 2022-08-20 14:27 | XMS_ITS | Encounter Summary ---
:1945 Author Organization [place] Address [address] [place] [address] Care Team Providers Name Role Phone Simon Claros MD Primary Care Provider Simon Claros MD Unavailable Simon Claros MD Unavailable Reason for Visit Reason Comments UTI Encounter Details Date Type Department Care Team Description 11/16/2017 Office Visit [facility] Iggy Dodd Pers onal history of Urology Clinic urinary tract [place] [address] infection [address] [address] [place], [place] [phone] (Work) [phone] Social History Tobacco Use Types Packs/Day Years Used Date Passive Smoke Exposure - Never Smoker Smokeless Tobacco: Never Used Alcohol Use Standard Drinks/Week Comments No 0 (1 standard drink = 0.6 oz pure alcoho l) Sex Assigned at Date Recorded Female 01/27/2022 12:36 PM CDT documented as of this encounter Last Filed Vital Signs Vital Sign Reading Time Taken Comments Blood Pressure 140/70 11/16/2017 9:59 AM FLOOR PERSON Pulse 80 11/16/2017 9:59 AM FLOOR PERSON Temperature - - Respiratory Rate - - Oxygen Saturation - - Inhaled Oxygen Concentration - - Weight 67.1 kg (148 lb) 11/16/2017 9:59 AM FLOOR PERSON Height 167.6 cm (5' 6) 11/16/2017 9:59 AM FLOOR PERSON Body Mass Index 23.89 11/16/2017 9:59 AM FLOOR PERSON documented in this encounter Patient Instructions Patient InstructionsKaren Paredes LPN - 11/16/2017 9:20 AM CST AFTER YOUR CYSTOSCOPY You have just completed a cystoscopy, or cysto, which allowed your physician to learn more about your bladder (or to remove a stent placed after surgery). We suggest that you continue to avoid caffeine, fruit juice, and alcohol for the next 24 hours, however, you are encouraged to return to your normal activities. A few things that are considered normal after your cystoscopy: * small amount of bleeding (or spotting) that clears within the next 24 hours * slight burning sensation with urination * sensation to of needing to avoid more frequently * the feeling of air in your urine * mild discomfort that is relieved with Acetaminophen (Example:Tylenol) Please contact our office promptly if you: * develop a fever above 101 degrees * are unable to urinate, during non-office hours seek Medical Attention. R PERSON documented in this encounter Progress Notes Iggy Dodd MD - 11/16/2017 9:20 AM CST Darshana Brooks is a 72-year-old female who returns for office cystoscopy. She has had recurrent urinarytract infections. 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 One ureter may enter the proximal portion of the diverticulum on the right side. Other past medical history: COPD, right hip arthroplasty, hysterectomy, lumpectomy with sentinel node biopsy, secondhand smoke exposure Medications: Unchanged Allergies: Sulfa, latex, chlorhexidine Exam: Normal external genitalia and urethral meatus Flexible cystoscopy-normal urethra, normal bladder mucosa. Cannot see origin of right sided bladder diverticulum-will need exam under anesthesia. Pelvic exam negative Assessment: Bladder diverticulum may be the source of her recurrent infections. Patient also needs to be on estrogen vaginal cream-Estrace cream to expensive Plan: Cystoscopy under anesthesia Antibiotic ??1 today R PERSON documented in this encounter Nursing Notes Karen Paredes LPN - 11/16/2017 9:20 AM CST Prior to the start of the procedure and with procedural staff participation, I verbally confirmed the patient???s identity using two indicators, relevant allergies, that the procedure was appropriate and matched the consent or emergent situation, and that the correct equipment/implants were available. Immediately prior to starting the procedure I conducted the Time Out with the procedural staff and re-confirmed the patient???s name, procedure, and site/side. (The [facility] universal protocol was followed.) Yes Sedation (Moderate or Deep): None Karen Paredes LPN R PERSON documented in this encounter Plan of Treatment Upcoming Encounters Date Type Specialty Care Team Description 10/26/2022 Lab Oncology Yris Perez MD [address] [phone] (Wo rk) 11/03/2022 Oncology Visit Oncology Yris Perez MD [address] [address] (Wo rk) Scheduled Orders Name Type Priority Associated Diagnoses Order S chedule [place]na-Operative Procedures Routine Personal history of Ordere d: 11/16/2017 Worksheet (Urology urinary tract infectio n General) documented as of this encounter Procedures Procedure Name Priority Date/Time Associated Comments Diagnosis HC CYSTOURETHROSCOPY Routine 11/16/2017 10:41 Personal history AM FLOOR PERSON of urinary tract infection URINE MACROSCOPIC ONLY Routine 11/16/2017 9:55 AM Personal his tory Results for this FLOOR PERSON of urinary tract procedure a re in infection the results section. documented in this encounter Results (ABNORMAL) UA without Microscopic (11/16/2017 9:55 AM FLOOR PERSON) [facility] Method Time Signature Color Urine Yellow 11/16/2017 [place] 9:59 AM FLOOR PERSON [facility] Appearance Urine Clear 11/16/2017 [place] 9:59 AM FLOOR PERSON [facility] Glucose Urine Negative NEG^Negat 11/16/2017 [place] dee mg/dL 9:59 AM FLOOR PERSON [facility] Bilirubin Urine Negative NEG^Negat 11/16/2017 [place] dee 9:59 AM FLOOR PERSON [facility] Ketones Urine Negative NEG^Negat 11/16/2017 [place] dee mg/dL 9:59 AM [facility] Specific [place] 1.010 1.003 - 11/16/2017 [place] Urine 1.035 9:59 AM FLOOR PERSON [facility] Blood Urine Small (A) NEG^Negat 11/16/2017 [place] dee 9:59 AM FLOOR PERSON [facility] pH Urine 6.0 5.0 - 7.0 11/16/2017 [place] pH 9:59 AM FLOOR PERSON [facility] Protein Albumin Negative NEG^Negat 11/16/2017 [place] Urine dee mg/dL 9:59 AM [facility] Urobilinogen 0.2 0.2 - 1.0 11/16/2017 [place] Urine EU/dL 9:59 AM FLOOR PERSON [facility] Nitrite Urine Negative NEG^Negat 11/16/2017 [place] dee 9:59 AM FLOOR PERSON [facility] Leukocyte Negative NEG^Negat 11/16/2017 [place] Esterase Urine dee 9:59 AM FLOOR PERSON [facility] Source Midstream 11/16/2017 [place] Urine 9:59 AM [facility] Specimen (Source) Anatomical Collection Method Collection Time Re ceived Time Location / / Volume Laterality Examination of 11/16/2017 9:55 11/16/2017 9:56 midstream urine AM FLOOR PERSON AM FLOOR PERSON specimen (procedure) Iggy Dodd MD LAB - URINE ORDERABLES Performing Organization Address City/State/ZIP Code Phon e Number [facility] [address] [place] [phone] [facility] [address] documented in this encounter Visit Diagnoses Diagnosis Personal history of urinary tract infect ion Personal history of urinary (tract) infe ction documented in this encounter Additional Health Concerns Infection Onset Date Last Indicated Resolved Time 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
--- OUTSIDE RECORDS SUMMARY | 2022-08-20 14:27 | XMS_ITS | Encounter Summary ---
:1945 Author Organization [place] Address [address] [facility] [place] [address] Care Team Providers Name Role Phone Simon Claros MD Primary Care Provider Simon Claros MD Unavailable Simon Claros MD Unavailable Encounter Details Date Type Department Care Team Description 04/19/[address] [facility] Di Rivera, Lumbag o (Primary Dx) [facility] RN [address] [place] [address] Social History Tobacco Use Types Packs/Day Years [...] 10/26/2022 Lab Oncology Yris Perez MD [address] [address] (Wo rk) 11/03/2022 Oncology Visit Oncology Yris Perez MD [address] [address] (Wo rk) documented as of this encounter Visit Diagnoses Diagnosis Lumbago - Primary documented in this encounter Additional Health Concerns Infection Onset Date Last Indicated Resolved Time 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, 01/08/2017 9 06/08/17, 08/26/17 documented as of this encounter Care Teams Program Management Analyst Relationship Specialty Start Date End Date Simon Claros MD PCP - General Internal Medicine 09/22/12 08/20/21 Simon Claros MD PCP - Assigned PCP 06/18/16 01/17/19 [address] [place] [phone] Simon Claros MD Assigned PCP 06/18/16 03/01/21 [address] [place] [phone] documented as of this encounter
--- OUTSIDE RECORDS SUMMARY | 2022-08-20 14:27 | XMS_ITS | Encounter Summary ---
:1945 Author Organization [place] Address Pending [facility] to [facility] [place] [address] Care Team Providers Name Role Phone Simon Claros MD Primary Care Provider Simon Claros MD Unavailable Simon Claros MD Unavailable Reason for Visit Reason Onset Date Comments UTI 09/08/2017 Encounter Details Date Type Department Care Team Description 09/08/2017 Telephone [facility] Simon Claros MD UTI [place] [address] [facility] [address] [facility], [address] [place] [address] [place] [address] [phone] Social History Tobacco Use Types Packs/Day Years Used Date Passive Smoke Exposure - Never Smoker Smokeless Tobacco: Never Used Alcohol Use Standard Drinks/Week Comments No 0 (1 standard drink = 0.6 oz pure alcoho l) Sex Assigned at Date Recorded Female 01/27/2022 12:36 PM CDT documented as of this encounter Miscellaneous Notes Telephone Encounter - Simon Claros MD - 09/10/2017 6:39 AM CDT Contact from 09/08: Patient noted increasing cloudiness of your after her instructions for avoiding the frequent urinary tract infections. On the speculum exam may have caused some irritation of the magical area Or the urethra that may be associated with the cloudiness And more complicated by the irritation bacitracin ointment applied to her urethra. We had discussed adding a prophylactic antibiotic which is being prescribed at this time at a suppressive dose and she will contact me if she is continuing to have symptoms suggesting a full-fledged urinary tract infection. Otherwise she is scheduled to return to clinic in one month for ongoingFollow-up. She will contact me earlier if she is having increasing symptoms as noted above Telephone Encounter - Pamella Hood RN - 09/08/2017 10:25 AM CDT To PCP: Please see below. Per your chart note, do you want to see her today before low dose preventative antibiotic? Thank you. Pamella Hood RN Telephone Encounter - Maggie Rojo - 09/08/2017 10:13 AM CDT Reason for call: Patient reporting a symptom Symptom or request: Cloudy urine over night, urgency to urinate, burning Duration (how long have symptoms been present): 1 day Have you been treated for this before? Yes Additional comments: PT saw Dr. Claros on 09/07 they discussed a plan For maintnance Phone Number patient can be reached at: Home number on file [phone] (home) Best Time: anytime Can we leave a detailed message on this number: YES Call taken on 09/08/2017 at 10:14 AM by Maggie Rojo documented in this encounter Plan of Treatment Upcoming Encounters Date Type Specialty Care Team Description 10/26/2022 Lab Oncology Yris Perez MD [address] [phone] (Madeleine proctor) 11/03/2022 Oncology Visit Oncology Yris Perez MD [address] [phone] (Madeleine proctor) documented as of this encounter Visit Diagnoses Diagnosis Dysuria - Primary documented in this encounter Additional Health Concerns Infection Onset Date Last Indicated Resolved Time 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, 01/08/2017 9 06/08/17, 08/26/17 documented as of this encounter Care Teams Deputy Probation Officer Relationship Specialty Start Date End Date Simon Claros MD PCP - General Internal Medicine 09/22/12 08/20/21 Simon Claros MD PCP - Assigned PCP 06/18/16 01/17/19 [address] [place] [address] Simon Claros MD Assigned PCP 06/18/16 03/01/21 [address] [place] [address] documented as of this encounter
--- OUTSIDE RECORDS SUMMARY | 2022-08-20 14:28 | XMS_ITS | Encounter Summary ---
:1945 Author Organization [place] Address [address] [facility] [place] [address] Care Team Providers Name Role Phone Simon Claros MD Primary Care Provider Simon Claros MD Unavailable Simon Claros MD Unavailable Reason for Visit Auth/Cert Specialty Diagnoses / Procedures Referred By Contact Refer red To Contact Surgery Diagnoses RIGHT BREAST CANCER Sh Periop Services Procedures LUMPECTOMY BREAST WITH SEED LOCALIZATION BIOPSY NODE SENTINEL [address] [place] [address] Phone: Referral ID Status Reason Start Date Expiration Date Visits Requ ested Visits Authorized [id number] 1 1 Encounter Details Date Type Department Care Team Description 02/08/2017 Anesthesia Event [facility] Kayce Sharma MD [address] [place] [address] [facility] Maggie Pulliam, TALENT MANAGEMENT MANAGER [employer] [address] [place] [address] Services [address], [address] [place] [address] Anesthesia Record Procedure Summary Procedure Name Responsible Anesthesia Start Anesthesia Stop Anesthesiologist Time Time SEED LOCALIZED RIGHT José Miguel Sharma MD 02/08/17 1127 0 02/08/17 1254 LUMPECTOMY WITH SENTINEL NODE BIOPSY (Right Breast) Events Date Time Event Comment 02/08/2017 1028 1127 An Start 1127 An Start Data 1130 An Induction 1131 An LMA 1146 AN INCISION 1246 an stop data 1248 LMA Removed 1254 An Stop Electronically s igned by Maggie Pulliam on February 08, 2017 12:54 PM Name Total dexamethasone 4mg/mL 4 mg ePHEDrine 5 mg/mL 10 mg fentaNYL (SUBLIMAZE) injection 100 mcg lidocaine 2% 40 mg midazolam 1mg/mL 2 mg ondansetron 2mg/mL 4 mg phenylephrine (YESENIA-SYNEPHRINE) injection 1 mg 400 mcg propofol (DIPRIVAN) injection 10 mg/mL vial 200 mg propofol infusion (mcg/kg/min) 666.88 mg ceFAZolin sodium-dextrose (ANCEF) infusion 2 g 2 g lactated ringers infusion 700 mL Agents Name NO HELIOX O2 N2O [...] 02/08/17 1231 by Axillary Fatemeh Dunlap RN Peripheral IV 02/08/17; 1129; 20 G; 02/08/17 1129 by 02/08/17 1400 by Left; Hand; Alcohol; Maggie Pulliam Michael J, Injectable; Tolerated NIMO Heck CRNA, RN well Retired Non-Surgical 02/08/17; 1131; Easy; 02/08/17 1131 by 01/14 05/31 1248 by Airway Intravenous; Not Maggie Pulliam Amanda Renae performed; 4; laryngeal NIMO Heck CRNA, APRN mask airway; yale of [employer] mouth; Anesthesiologist; Spontaneous ventilation, Adequate tidal volume, Head lift adequate, Cobol Mainframe Developer strength adequate, Follows commands, Transported with oxygen, Purposeful movement documented in this encounter Social History Tobacco Use Types Packs/Day Years Used Date Passive Smoke Exposure - Never Smoker Smokeless Tobacco: Never Used Alcohol Use Standard Drinks/Week Comments No 0 (1 standard drink = 0.6 oz pure alcoho l) Sex Assigned at Date Recorded Female 01/27/2022 12:36 PM CDT documented as of this encounter OR Notes Anesthesia Postprocedure Evaluation - José Miguel Donnelly MD - 02/08/2017 1:03 PM CDT Patient: Darshana [place] Procedure(s): SEED LOCALIZED RIGHT LUMPECTOMY WITH SENTINEL NODE BIOPSY - Wound Class: I-Clean - Wound Class: I-Clean Diagnosis:RIGHT BREAST CANCER Diagnosis Additional Information: No value filed. Anesthesia Type: General, LMA Note: Anesthesia Post Evaluation Patient location during evaluation: PACU Patient participation: Able to fully participate in evaluation Level of consciousness: awake Pain management: adequate Airway patency: patent Cardiovascular status: acceptable Respiratory status: acceptable Hydration status: acceptable PONV: controlled Anesthetic complications: None Last vitals: Vitals: 02/08/17 1035 02/08/17 1248 02/08/17 1300 BP: 154/72 124/62 124/60 Pulse: 74 Resp: 16 20 Temp: 36.3 ??C (97.3 ??F) 36.3 ??C (97.3 ??F) SpO2: 96% 99% 96% Electronically Signed By: José Miguel Donnelly MD February 08, 2017 1:03 PM Anesthesia Preprocedure Evaluation - José Miguel Sharma MD - 02/08/2017 10:27 AM CDT Anesthesia Evaluation . Pt has had prior anesthetic. Type: General No history of anesthetic complications ROS/MED HX ENT/Pulmonary: (+)mild COPD, , . . Neurologic: Cardiovascular: (+) hypertension----. : . . . :. . METS/Exercise Tolerance: Hematologic: Musculoskeletal: GI/Hepatic: - neg GI/hepatic ROS Renal/Genitourinary: Endo: Psychiatric: Infectious Disease: Malignancy: Other: Physical Exam Normal systems: cardiovascular, pulmonary and dental Airway Mallampati: I TM distance: >3 FB Neck ROM: full Dental Cardiovascular Rhythm and rate: regular and normal Pulmonary breath sounds clear to auscultation Anesthesia Plan History & Physical Review History and physical reviewed and following examination; no interval change. ASA Status: 2 . NPO Status: > 8 hours Plan for General and LMA with Propofol induction. Maintenance will be TIVA. PONV prophylaxis: Ondansetron (or other 5HT-3) and Dexamethasone or Solumedrol Postoperative Care Postoperative pain management: IV analgesics and Oral pain medications. Consents Anesthetic plan, risks, benefits and alternatives discussed with: Patient.. . documented in this encounter Miscellaneous Notes Anesthesia Care Transfer Note - Maggie Pulliam APRN CRNA - 02/08/2017 12:54 PM CDT Patient: Darshana [place] Procedure(s): SEED LOCALIZED RIGHT LUMPECTOMY WITH SENTINEL NODE BIOPSY - Wound Class: I-Clean - Wound Class: I-Clean Diagnosis: RIGHT BREAST CANCER Diagnosis Additional Information: No value filed. Anesthesia Type: General, LMA Note: Airway :Face Mask Patient transferred to:PACU Comments: VSS. Airway and IV patent. Patient comfortable. Report to RN. Stable care transfer. Vitals: (Last set prior to Anesthesia Care Transfer) AUSTYN VITALS 02/08/2017 1216 - 02/08/2017 1254 02/08/2017 Pulse: 83 SpO2: 98 % Resp Rate (observed): (!) 1 Resp Rate (set): 10 Electronically Signed By: Maggie Pulliam APRN CRNA February 08, 2017 12:54 PM documented in this encounter Plan of Treatment Upcoming Encounters Date Type Specialty Care Team Description 10/26/2022 Lab Oncology Yris Perez MD [address] [place] [address] (Wo rk) 11/03/2022 Oncology Visit Oncology Yris Perez MD [address] [address] (Wo rk) documented as of this encounter Visit Diagnoses Not on filedocumented in this encounter Administered Medications Inactive Administered Medications - up to 3 most recent administrations Medication Order MAR Action Action Date Dose Rate Site ceFAZolin sodium-dextrose (ANCEF) Given 02/08/2017 11:30 AM CDT 2 g infusion 2 g Routine, 2 g, Intravenous, PRE-OP/PRE-PROCEDURE, Starting on Wed02/08/17 at 1023, For 1 dose, Give first dose within 1 hour PRIOR to incision. If patient weight is greater than or equal to 120 kg increase dose to 3 g., Indications: Perioperative Pharmacoprophylaxis, Pre-procedure dexamethasone (DECADRON) injection Given 02/08/2017 11:41 AM CDT 4 mg PRN, Administer over 1-4 Minutes, Starting on Wed02/08/17 at 1141, Anesthesia Intra-op ePHEDrine injection Given 02/08/2017 12:10 PM CDT 5 mg PRN, Starting on Wed02/08/17 at 1148, Anesthesia Intra-op Given 02/08/2017 11:48 AM CDT 5 mg fentaNYL Citrate (PF) (SUBLIMAZE) inject ion Given 02/08/2017 11:52 AM CDT 25 mcg PRN, moderate to severe pain, Starting on Wed02/08/17 at 1129, Anesthesia Intra-op Given 02/08/2017 11:45 AM CDT 25 mcg Given 02/08/2017 11:29 AM CDT 50 mcg lactated ringers infusion New Bag 02/08/2017 11:29 AM CDT at 100 mL/hr, Intravenous, CONTINUOUS, Continue until IV catheter is weaned, PACU/Phase II, Starting on Wed02/08/17 at 1030, Until Wed02/08/17 at 1643 lidocaine injection 2% (MDV) Given 02/08/2017 11:30 AM CDT 40 mg PRN, Starting on Wed02/08/17 at 1130, Anesthesia Intra-op midazolam (VERSED) injection Given 02/08/2017 11:30 AM CDT 2 mg PRN, anxiety, Starting on Wed02/08/17 at 1130, Anesthesia Intra-op ondansetron (ZOFRAN) injection Given 02/08/2017 12:05 PM CDT 4 mg PRN, nausea, vomiting, Administer over 2-5 Minutes, Starting on Wed02/08/17 at 1205, Anesthesia Intra-op phenylephrine (YESENIA-SYNEPHRINE) injection 1 Bolus 02/08/2017 12:37 PM CDT 50 mcg mg 1 mg, CONTINUOUS PRN, Starting on Wed02/08/17 at 1148, Anesthesia Intra-op Bolus 02/08/2017 12:22 PM CDT 50 mcg Bolus 02/08/2017 12:10 PM CDT 100 mcg propofol (DIPRIVAN) infusion Rate/Dose 02/08/2017 12:27 50 mcg/kg/min 19.7 mL/hr Intravenous, CONTINUOUS PRN, Change PM CDT Starting on Wed02/08/17 at 1130, Anesthesia Intra-op Rate/Dose Change 02/08/2017 12:25 PM CDT 100 mcg/kg/min 39.5 mL/hr Rate/Dose Change 02/08/2017 12:07 PM CDT 160 mcg/kg/min 63.2 mL/hr propofol (DIPRIVAN) injection 10 mg/mL v ial Given 02/08/2017 11:30 AM CDT 200 mg PRN, Starting on Wed02/08/17 at 1130, Anesthesia Intra-op documented in this encounter Additional Health Concerns Infection Onset Date Last Indicated Resolved Time 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, 01/08/2017 9 06/08/17, 08/26/17 documented as of this encounter Care Teams Chestnut Tanner Relationship Specialty Start Date End Date Simon Claros MD PCP - General Internal Medicine 09/22/12 08/20/21 Simon Claros MD PCP - Assigned PCP 06/18/16 01/17/19 [address] [place] [address] Simon Claros MD Assigned PCP 06/18/16 03/01/21 [address] [place] [address] (work) documented as of this encounter
--- OUTSIDE RECORDS SUMMARY | 2022-08-20 14:28 | XMS_ITS | Encounter Summary ---
:1945 Author Organization [place] Address [address] [place] [address] Care Team Providers Name Role Phone Simon Claros MD Primary Care Provider Simon Claros MD Unavailable Simon Claros MD Unavailable Encounter Details Date Type Department Care Team Description 03/27/2017 Telephone [facility] Nurse Jane Ng , RN [facility] [address] [place] [phone] Social History Tobacco Use Types Packs/Day Years Used Date Passive Smoke Exposure - Never Smoker Smokeless Tobacco: Never Used Alcohol Use Standard Drinks/Week Comments No 0 (1 standard drink = 0.6 oz pure alcoho l) Sex Assigned at Date Recorded Female 01/27/2022 12:36 PM CDT documented as of this encounter Miscellaneous Notes Telephone Encounter - Jane Ng, RN - 03/27/2017 10:32 AM CDT Call Type: Triage Call Presenting Problem: Pt states she was prescribed Levaquin antibiotic for urinary tract infection and is awaiting final culture results. While reading antibiotic side effects and discussion with pharmacist pt is requesting a different antibiotic or wanting to know if she can wait for final culture results before starting the antibiotic. Triage Note: Guideline Title: Medication Questions - Adult Recommended Disposition: Speak with Provider or Pharmacist within 24 hours Original Inclination: Wanted to speak with a nurse Override Disposition: Intended Action: Call PCP/HCP Physician Contacted: No Has questions about prescribed and/or nonprescribed medications not covered by available resources ? YES and has medication questions regarding prescribed and/or nonprescribed medication(s) not covered by available resources ? NO and has medication questions regarding prescribed and/or nonprescribed medication(s) not covered by available resources ? NO Sign(s) or symptom(s) associated with a diagnosed condition or with a new illness ? NO Prescription ordered today and not available at pharmacy putting patient at clinical risk ? NO Recurrence of a symptom(s) or illness post prescribed medication treatment AND provider instructed patient to call if symptom(s) returned. ? NO Unable to obtain prescribed medication related to available resources AND situation poses immediate clinical risk ? NO Pharmacy calling to clarify prescription order. ? NO Requests refill of prescribed medication that does NOT have a valid refill; lack of medication may cause clinical risk to patient if not available. ? NO Requests refill of prescribed medication without valid refills OR requests refill of prescribed medication with valid refills but does not have prescription number (no RX container); lack of medication does not put patient at clinical risk ? NO Physician Instructions: Care Advice: documented in this encounter Plan of Treatment Upcoming Encounters Date Type Specialty Care Team Description 10/26/2022 Lab Oncology Yris Perez MD [address] [place] [phone] (Wo rk) 11/03/2022 Oncology Visit Oncology Yris Perez MD [address] [place] [address] [phone] (Wo rk) documented as of this encounter Visit Diagnoses Not on filedocumented in this encounter Additional Health Concerns Infection Onset Date Last Indicated Resolved Time 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, 01/08/2017 9 06/08/17, 08/26/17 documented as of this encounter Care Teams Sugar Mill Worker Relationship Specialty Start Date End Date Simon Claros MD PCP - General Internal Medicine 09/22/12 08/20/21 Simon Claros MD PCP - Assigned PCP 06/18/16 01/17/[id number] [place] [address] Simon Claros MD Assigned PCP 06/18/16 03/01/21 [address] [place] [address] documented as of this encounter
--- OUTSIDE RECORDS SUMMARY | 2022-08-20 14:28 | XMS_ITS | Encounter Summary ---
:1945 Author Organization [place] Address [address] [place] [address] Care Team Providers Name Role Phone Simon Claros MD Primary Care Provider Simon Claros MD Unavailable Simon Claros MD Unavailable Reason for Visit Reason Comments Consult Invasive mammary carcinoma o f right breast Encounter Details Date Type Department Care Team Description 02/03/2017 Office Visit [facility] Jordin Atkins neoplasm of central portion of right female breast (H) (Primary Dx); Surgery Clinic Whitley Urbina MD Neck pain; [address] pain, right [address] [place] [phone] [address] [place] [id number] Social History Tobacco Use Types Packs/Day Years Used Date Passive Smoke Exposure - Never Smoker Smokeless Tobacco: Never Used Alcohol Use Standard Drinks/Week Comments No 0 (1 standard drink = 0.6 oz pure alcoho l) Sex Assigned at Date Recorded Female 01/27/2022 12:36 PM CDT documented as of this encounter Last Filed Vital Signs Vital Sign Reading Time Taken Comments Blood Pressure 130/66 02/03/2017 9:33 AM CDT Pulse 62 02/03/2017 9:33 AM CDT Temperature - - Respiratory Rate - - Oxygen Saturation - - Inhaled Oxygen Concentration - - Weight 66.7 kg (147 lb) 02/03/2017 9:33 AM CDT Pt hoang mayes Height 167.6 cm (5' 6) 02/03/2017 9:33 AM CDT Pt repor sugey Body Mass Index 23.73 02/03/2017 9:33 AM CDT documented in this encounter Progress Notes Jordin Atkins MD - 02/03/2017 10:00 AM CDT Surgery Consultation, [facility] BAYLEE Atkins MD Darshana Brooks Date of : 1945 Age: [age] year old PCP: Simon Claros [phone] Chief Complaint: New diagnosis right breast cancer Pt was seen in consultation from Simon Claros. History of Present Illness: Darshana Brooks is a 71 year old female who presented with a new diagnosis of right breast cancer. This was identified and screening mammogram. Patient was found to have a 1cm area of microcalcifications in the right breast and a biopsy was performed. 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 This was grade 2 ER/ND positive HER- 2 negative.Patient has never had any personal history of breast issues but does have a family history of breastcancer, sister being diagnosed at a similar age as well as an aunt. Patient has previously undergonea hysterectomy and bilateral oophrectomy. She is here to discuss diagnosis and management options. PMH: Darshana Brooks has a past medical history of COPD (chronic obstructive pulmonary disease) (H) and Hypertension. 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 Home medications and allergies reviewed. Social History: Darshana Brooks reports that she is a non-smoker but has been exposed to tobacco smoke. She has never used smokeless tobacco. She reports that she does not drink alcohol or use illicit drugs. Family History: Darshana Brooks family history includes Asthma in her father; Breast Cancer in her sister; DIABETES in her father and mother; Hypertension in her mother; Other Cancer in her brother. ROS: The 10 point Review of Systems is negative other than noted in the HPI. Complains of some neck pain which is been occurring for some time. Also complains of some right hip and thigh pain as well as numbness, which have been present since a hip replacement less than a year ago. Physical Exam: Blood pressure 130/66, pulse 62, height 5' 6 (1.676 m), weight 147 lb (66.7 kg), not currently . 147 lbs 0 oz Healthy-appearing female in no distress. Patient has a pleasant affect and communicates well. Pupils equal round and reactive to light. No cervical lymphadenopathy or thyromegaly. Lung mendez clear, breathing comfortably. Heart normal sinus rhythm. No murmurs rubs or gallops. Bilateral breast exam performed. Moderately large dense breasts. Some bruising on the right. No skinchanges or nipple discharge. Mass not palpable on the right. No palpable axillary lymph nodes on either side. Skin warm, dry. No obvious rashes or lesions. All new lab and imaging data was reviewed, including pathology reports, imaging studies, and clinic notes. Assessment/plan: Pleasant healthy 71-year-old female with a new diagnosis of breast cancer on the right. Patient does have a fairly significant family history and consideration will be made toward genetic counseling. Given the lobular features of the tumor I have ordered an MRI. I also think that, given her breast density, this may yield helpful information if the patient chooses breast conservation therapy. She understands that this has a similar survival to mastectomy but would likely entail postlumpectomy radiation. Following her MRI, we can make a game plan as to our surgery options. In addition, given her complaints of neck and hip pain, think ordering a bone scan might be of some benefit. Ifshe were to have evidence of metastatic disease, this would obviously change our course of action and recommendations. Agnelo Atkins M.D. [facility] [phone] Please route or send letter to: Primary Care Provider (PCP) and Referring Provider documented in this encounter Nursing Notes Thalia Samayoa E - 02/03/2017 10:00 AM CDT Breast Patients BREAST PATIENTS (ALL) 1-Do you have any of the following symptoms? Lump(s) or Mass(es) 2-In which breast are you having the symptoms? right 3-Do you use hormones? No 4-Have you had a Mammogram? Yes Where: [facility] [place] Date: 01/25/17 5-Have you ever had a breast cyst drained? No 6-Have you ever had a breast biopsy? Yes Side: Right Date: 01/25/17 7-Have you ever had a Breast Cancer? No 8-Is there a history of Breast Cancer in your family? Yes Relationship to you: Sister and Aunt 9-Have you ever had Ovarian Cancer? No 10-Is there a history of Ovarian Cancer in your family? No 11-Summarize your caffeine intake (i.e. coffee, tea, chocolate, soda etc.): Occasional chocolate, tea, soda BREAST PATIENTS (FEMALE) 12-What age did your periods begin? 14 13-Date your last menstrual period began? Unknown 14-Number of full-term pregnancies: 0 15-Your age when your first child was born? N/A 16-Did you nurse your children? N/A 17-Are you now? No 18-Have you begun menopause? Yes Age Menopause began: s/p hysterectomy 19-Have you had either ovary removed?Yes Date of Surgery: Age:early to mid 40's 20-Do you have breast implants? No Thalia Samayoa MA documented in this encounter Plan of Treatment Upcoming Encounters Date Type Specialty Care Team Description 10/26/2022 Lab Oncology Yris Perez MD [address] [id number] (Madeleine proctor) 11/03/2022 Oncology Visit Oncology Yris Perez MD [address] [id number] (Madeleine proctor) documented as of this encounter Results MA Breast Specimen Right OR (02/08/2017 12:12 PM CDT) Anatomical Region Laterality Modality Breast Right Mammography Specimen (Source) Anatomical Location Collection Method / Collectio n Time Received Time / Laterality Volume Impressions 02/08/2017 12:49 PM CDT IMPRESSION: Successful placement of a radioactive seed for operative guidance. Specimen radiograph, as above. LEX BRODY Narrative 02/08/2017 12:49 PM CDT RIGHT BREAST SEED LOCALIZATION; POST SEED PLACEMENT RIGHT DIGITAL MAMMOG AYSE; SPECIMEN RADIOGRAPH; ??02/08/2017 10:17 A M HISTORY: Right breast cancer, imaging di rected localization requested prior to excision. COMPARISON: 01/25/2017 PROCEDURE: ??Informed consent was obtain ed prior to the procedure. ??The skin overlying the target lesion was mar ked, sterilized and anesthetized using approximately 3 mL 1% lidocaine. ??Using continuous imaging guidance, the radioactive seed w as deployed adjacent to biopsy marker and remaining calcifications. ??A dequate placement was confirmed with imaging. ??Images were archived. Th ere were no complications. Post procedure mammogram confirms satisf actory positioning of the seed. ??The images were annotated and pr ovided to the surgeon. Specimen radiograph shows the target les ion, the radioactive seed and the marker placed at the time of core bi opsy. Procedure Note Lex Brody MD - 02/08/2017 RIGHT BREAST SEED LOCALIZATION; POST SEED PLACEMENT RIGHT DIGITAL MAMMOG AYSE; SPECIMEN RADIOGRAPH; 02/08/2017 10:17 AM HISTORY: Right breast cancer, imaging di rected localization requested prior to excision. COMPARISON: 01/25/2017 PROCEDURE: Informed consent was obtained prior to the procedure. The skin overlying the target lesion was mar ked, sterilized and anesthetized using approximately 3 mL 1% lidocaine. Using continuous imaging guidance, the radioactive seed w as deployed adjacent to biopsy marker and remaining calcifications. Joy quate placement was confirmed with imaging. Images were archived. Ther e were no complications. Post procedure mammogram confirms satisf actory positioning of the seed. The images were annotated and prov ided to the surgeon. Specimen radiograph shows the target les ion, the radioactive seed and the marker placed at the time of core bi opsy. IMPRESSION: Successful placement of a ra dioactive seed for operative guidance. Specimen radiograph, as above. LEX BRODY Jordin Atkins MD IMG MAMMOGRAPHY ORDERABLES NM Lymphoscintigraphy Injection only (02/08/2017 11:01 AM CDT) Anatomical Region Laterality Modality Breast Nuclear Medicine Specimen (Source) Anatomical Location Collection Method / Collectio n Time Received Time / Laterality Volume Impressions 02/08/2017 11:20 AM CDT Impression: Radionuclide technique for operative loc alization of the sentinal lymph node. LEX BRODY Narrative 02/08/2017 11:20 AM CDT Examination: ??NM LYMPHOSCINTIGRAPHY INJECTION ONLY , Date: 02/08/2017 11:01 AM Indication: ??Seed localized right breas t lumpectomy and sentinel lymph node biopsy, Malignant neoplasm of centr al portion of right female breast . Additional Information: none Technique: 275 ??uci of Tc-99m Lymphoseek (r) ??was injected into the intradermal periareolar right breast at the 6:00 pos ition. 267 ??uci of Tc-99m Lymphoseek (r) ??was injected into the intradermal periareolar right breast at the 10:00 po sition. Images were not obtained after the radio nuclide injection for operative localization. Procedure Note Lex Brody MD - 02/08/2017 Examination: NM LYMPHOSCINTIGRAPHY INJEC TION ONLY , Date: 02/08/2017 11:01 AM Indication: Seed localized right breast lumpectomy and sentinel lymph node biopsy, Malignant neoplasm of centr al portion of right female breast . Additional Information: none Technique: 275 uci of Tc-99m Lymphoseek (r) was inj ected into the intradermal periareolar right breast at the 6:00 pos ition. 267 uci of Tc-99m Lymphoseek (r) was inj ected into the intradermal periareolar right breast at the 10:00 po sition. Images were not obtained after the radio nuclide injection for operative localization. Impression: Radionuclide technique for operative loc alization of the sentinal lymph node. LEX BRODY Jordin Aktins MD [facility] [place] ORDERABLES NM Bone Scan Whole Body (02/05/2017 2:00 PM CDT) Anatomical Region Laterality Modality Whole Body, SUBRAD CT BODY, P [facility] Nuclear Medicine Specimen (Source) Anatomical Location Collection Method / Collectio n Time Received Time / Laterality Volume Impressions 02/05/2017 2:51 PM CDT IMPRESSION: ?? 1. Right hip arthroplasty. Increased act ivity about the femoral component stem extending to the tip of t he stem is noted. While nonspecific, this raises the possibility of femoral component loosening. 2. No other convincing evidence of osseo us metastasis. KATINA RICHARDSON MD Narrative 02/05/2017 2:51 PM CDT NUCLEAR MEDICINE BONE SCAN WHOLE BODY ??02/05/2017 2:00 PM HISTORY: ??Neck and right hip/thigh pain , new diagnosis breast cancer. DOSE: ??26mCi Tc99m MDP inj RAC @1045. COMPARISON: Prior bone scan: None available. Relevant imaging study: None. FINDINGS: There is photopenia at the rig ht hip, presumably related to right hip arthroplasty. Increased activi ty is noted in the proximal right femur which is nonspecific but cou ld represent loosening of the femoral component of the arthroplasty. A symmetrical uptake is noted at the right acromioclavicular joint, likel y degenerative in origin. Skeletal uptake otherwise appears within normal limits and symmetrical. Normal renal uptake is seen bilaterally. Procedure Note Blayne Richardson MD - 02/05/2017Formatt ing of this note might be different from the original. NUCLEAR MEDICINE BONE SCAN WHOLE BODY 2:00 PM HISTORY: Neck and right hip/thigh pain, new diagnosis breast cancer. DOSE: 26mCi Tc99m MDP inj RAC @1045. COMPARISON: Prior bone scan: None available. Relevant imaging study: None. FINDINGS: There is photopenia at the rig ht hip, presumably related to right hip arthroplasty. Increased activi ty is noted in the proximal right femur which is nonspecific but cou ld represent loosening of the femoral component of the arthroplasty. A symmetrical uptake is noted at the right acromioclavicular joint, likel y degenerative in origin. Skeletal uptake otherwise appears within normal limits and symmetrical. Normal renal uptake is seen bilaterally. IMPRESSION: 1. Right hip arthroplasty. Increased act ivity about the femoral component stem extending to the tip of t he stem is noted. While nonspecific, this raises the possibility of femoral component loosening. 2. No other convincing evidence of osseo us metastasis. KATINA RICHARDSON MD Jordin Atkins MD [facility] [place]LES documented in this encounter Visit Diagnoses Diagnosis Malignant neoplasm of central portion of right female breast (H) - Primary Malignant neoplasm of central portion of female breast Neck pain Cervicalgia Hip pain, right Pain in joint, pelvic region and thigh Malignant neoplasm of central portion of right female breast (H) Malignant neoplasm of central portion of female breast Neck pain Cervicalgia Hip pain, right Pain in joint, pelvic region and thigh Malignant neoplasm of central portion of right female breast (H) Malignant neoplasm of central portion of female breast Malignant neoplasm of central portion of right female breast (H) Malignant neoplasm of central portion of female breast documented in this encounter Additional Health Concerns Infection Onset Date Last Indicated Resolved Time 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, 01/08/2017 9 06/08/17, 08/26/17 documented as of this encounter Care Teams Asset Administrator Relationship Specialty Start Date End Date Simon Claros MD PCP - General Internal Medicine 09/22/12 08/20/21 Simon Claros MD PCP - Assigned PCP 06/18/16 01/17/[address] [place] [address] Simon Claros MD Assigned PCP 06/18/16 03/01/21 [address] [place] [address] documented as of this encounter
--- OUTSIDE RECORDS SUMMARY | 2022-08-20 14:28 | XMS_ITS | Encounter Summary ---
:1945 Author Organization [place] Address [address] [place] [address] Care Team Providers Name Role Phone Simon Claros MD Primary Care Provider Simon Claros MD Unavailable Simon Claros MD Unavailable Reason for Visit (Routine) - Closed Specialty Diagnoses / Procedures Referred By Contact Refer red To Contact Radiology / Radiology. Procedures Sh Breast Imaging ANALY MACARIO BREAST BX VAC [address] [facility], [address] [place] [address] Phone: Referral ID Status Reason Start Date Expiration Date Visits Requ ested Visits Authorized [id number] Closed 01/25/2017 01/25/2018 1 1 Encounter Details Date Type Department Care Team Description 01/25/2017 [facility] Simon Claros Microcalc ifications of the Encounter Rocco Sr MD breast Center [address], [address] [place] [id number] Social History Tobacco Use Types Packs/Day Years Used Date Passive Smoke Exposure - Never Smoker Smokeless Tobacco: Never Used Alcohol Use Standard Drinks/Week Comments No 0 (1 standard drink = 0.6 oz pure alcoho l) Sex Assigned at Date Recorded Female 01/27/2022 12:36 PM CDT documented as of this encounter Discharge Instructions Discharge InstructionsMelissa Suero RN - 01/25/2017 11:45 AM CDT After Your Breast Biopsy Bleeding or bruising: Slight bruising is normal. If you bleed through the bandage, put direct pressure on the breast. If you are still bleeding after 20 minutes, call the doctor who ordered the exam. Bandages: Keep your bandage in place until tomorrow morning. Do not get it wet. Leave the tape in place for two days. On the second day, cover it with a Band-Aid. Activity: You may shower the morning after the exam. No heavy activity (lifting, vacuuming) for 24 hours. Discomfort: Wear your bra overnight to support the breast. You may take Tylenol (acetaminophen) for pain. If you had a stereotactic of MR-directed biopsy, you may take aspirin or ibuprofen (Advil, Motrin) the morning after your biopsy, unless your doctor tells you not to. Infection: Infection is rare. Symptoms include fever, redness, increasing pain and fluid draining from the biopsy site. If you have any of these symptoms, please call the doctor who ordered your exam. Results: Results may take up to three business days. If you have not heard your results in three days, call the Breast Center Nurse at [phone] or [phone]. In rare cases, we may need to do another biopsy. Call the doctor who ordered your exam if: ?? You have bleeding that lasts more than 20 minutes. ?? You have pain that cannot be controlled. ?? You have signs of infection (fever, redness, drainage or other signs). ?? You have not had your results within three days. Nurse navigator: Our nurse navigator is here to answer your questions and help you set up future clinic visits. Please call [phone]. Thank you for choosing [facility]. Please call us if you have questions or concerns about your biopsy. documented in this encounter Medications at Time of Discharge Medication Sig Dispensed Refills Start Date End Date Cholecalciferol (VITAMIN Take 2,000 Units by 0 D3 PO) mouth daily loratadine (CLARITIN) 10 Take 10 mg by mouth 0 MG tablet albuterol (PROAIR HFA, Inhale 2 puffs into 0 02/03/2017 PROVENTIL HFA, VENTOLIN the lungs 2 times HFA) 108 (90 BASE) daily as needed MCG/ACT inhaler albuterol (PROAIR Inhale 2-4 puffs into 0 04/20/2018 HFA/PROVENTIL the lungs as needed HFA/VENTOLIN HFA) 108 (90 BASE) MCG/ACT Inhaler NONFORMULARY Take 1 Tablespoonful 0 by mouth daily ALL NATURAL GREENS NONFORMULARY Take 29 mLs by mouth 0 daily LIQUIDRIVE ANTIOXIDENT (1 ounce) NONFORMULARY Take 5 mLs by mouth 0 10/2017 daily LIPOSOMAL GLUTATHIONE NONFORMULARY Take 6 mLs by mouth 0 10/2017 daily LIPOSOMAL CURCUMIN [place]-3 Fatty Acids Take 6 mLs by mouth 0 08/26/2017 (OMEGA ESSENTIALS BASIC) daily LIQD documented as of this encounter Progress Notes Simon Claros MD - 01/25/2017 10:52 AM CDT I called the patient and informed of results. The following changes were made to treatment: Biopsy reports were conveyed to the patient and her with associated anticipating necessary follow-up. I suggested that we schedule her for surgical follow-up and to proceed with further evaluation and treatment which were outlined in detail. Patient voices understanding and will contact me with any further questions. Simon Claros MD documented in this encounter Plan of Treatment Upcoming Encounters Date Type Specialty Care Team Description 10/26/2022 Lab Oncology Yris Perez MD [address] [facility] [address] [place] [address] (Wo htiesh) 11/03/2022 Oncology Visit Oncology Yris Perez MD [address] [facility] [address] [place], [place] [address] (Wo rk) documented as of this encounter Procedures Procedure Name Priority Date/Time Associated Diagnosis Comme nts MA STEREOTACTIC Routine 01/25/2017 11:51 Microcalcifications o f the Results for BREAST BIOPSY AM CDT breast this procedure VACUUM RT are in the results section. HER 2 PRINCE FISH Routine 01/25/2017 11:30 Results f or AM CDT this procedure are in the results section. SURGICAL PATHOLOGY Routine 01/25/2017 11:30 Resul ts for EXAM AM CDT this procedure are in the results section. documented in this encounter Results MA Stereotactic Breast Biopsy Vacuum Assist Right (01/25/2017 11:51 AM CDT) Anatomical Region Laterality Modality Breast Right Mammography Specimen (Source) Anatomical Location Collection Method / Collectio n Time Received Time / Laterality Volume Addenda Addendum by Niranjan Escobedo MD on 01/27/2017 10:49 AM CDT DARELL JACKSON [id number], [id number] FINAL DIAGNOSIS: Invasive mammary carcin judi with ductal and lobular features. Result is concordant. ??Surgical consult ation is recommended. ??Patient was notified of the results and recommen ded follow up on 01/26/2017. Niranjan Escobedo MD ?? Date of Addendum: NIRANJAN ESCOBEDO MD Impressions 01/25/2017 1:33 PM CDT IMPRESSION: Successful stereotactic biopsy of right breast calcifications. ??Final pathology is pen ding. ?? NIRANJAN ESCOBEDO MD Narrative 01/25/2017 1:33 PM CDT STEREOTACTIC-GUIDED RIGHT BREAST CORE BIOPSY; SPECIMEN RADIOGRAPH; CLIP PLACEMENT; POSTBIOPSY DIGITAL MAMMOGRAM RIGHT BREAS T; ??01/25/2017 INDICATION FOR PROCEDURE: Microcalcifica tions at the 1:00 position of the posterior right breast. PROCEDURE: Following discussion of risks and benefits, consent was obtained. The patient was placed on the stereotactic table and the target lesion was identified and targete d in the craniocaudal projection. 1% lidocaine without and wit h epinephrine were administered for local anesthesia. Digit al images were obtained to assure correct targeting before needle i ntroduction. A skin josephine was made and 9-gauge Suros biopsy needle was introduced via superior to inferior approach. Repeat digital images showed needle tip in appropriate position relative to the les ion. A series of 6 vacuum-assisted samples were obtained. Specimen radiograph showed calcification s. ??A metal tissue marker was then deployed to donis the site. The abdifatah ent tolerated the biopsy well and there was no immediate complication. Less than 10cc is blood loss. No pain following biopsy. Postbiopsy digital mammogram showed sati sfactory positioning the marking clip. Procedure Note Niranjan Escobedo MD - 01/25/2017For matting of this note might be different from the original. STEREOTACTIC-GUIDED RIGHT BREAST CORE BI OPSY; SPECIMEN RADIOGRAPH; CLIP PLACEMENT; POSTBIOPSY DIGITAL MAMMOGRAM RIGHT BREAS T; 01/25/2017 INDICATION FOR PROCEDURE: Microcalcifica tions at the 1:00 position of the posterior right breast. PROCEDURE: Following discussion of risks and benefits, consent was obtained. The patient was placed on the stereotactic table and the target lesion was identified and targete d in the craniocaudal projection. 1% lidocaine without and wit h epinephrine were administered for local anesthesia. Digit al images were obtained to assure correct targeting before needle i ntroduction. A skin josephine was made and 9-gauge Timetric biopsy needle was introduced via superior to inferior approach. Repeat digital images showed needle tip in appropriate position relative to the les ion. A series of 6 vacuum-assisted samples were obtained. Specimen radiograph showed calcification s. A metal tissue marker was then deployed to donis the site. The abdifatah ent tolerated the biopsy well and there was no immediate complication. Less than 10cc is blood loss. No pain following biopsy. Postbiopsy digital mammogram showed sati sfactory positioning the marking clip. IMPRESSION: Successful stereotactic biop sy of right breast calcifications. Final pathology is pendi ng. NIRANJAN ESCOBEDO MD Simon Claros MD IMG MAMMOGRAPHY ORDERABLES Her 2 prince FISH (01/25/2017 11:30 AM CDT) Component Value Ref Test Analysis Performed At [facility] Range Method Time Signature Copath Patient Name: DARELL JACKSON Report MR#: [id number] Specimen #: [id number] Collected: 01/25/2017 11:30 Received: 01/27/2017 08:03 Reported: 02/01/2017 23:09 Ordering Phy(s): SIMON CLAROS For improved result formatting, select 'View Enhanced Report Format' under Linked Documents section. TEST(S) REQUESTED: Cytogenetics HER2 FISH SPECIMEN DESCRIPTION: Breast Tissue, Paraffin Embedded CLINICAL COMMENTS: Breast Cancer [id number] METHODS: Fluorescence in-situ hybridization (FISH) was performed on formalin-fixed, paraffin-embedded tissue using the Dako HER2 /ARASH-17 IQFISH pharmDx Probe Mix to HER2 (17q12) and to the centrome re region of chromosome 17. The reported formalin fixation time is 6-72 h ours. An adequate number of invasive tumor cells were present in Bloc k 1CA, of which 60 cells were scored independently by two technologist s; images were captured on an Cinexio image analysis system. Jerrica mckeon resulting numbers of HER2 and centromere 17 signals were expressed as a ratio of HER2/ARASH-17. RESULTS: Ratio of HER2/ARASH-17 signals Darell Port: 1.2 (nonamplifi ed) ? Avg. number HER2 signals/nucleus: 2.2 ?Avg. number ARASH-17 signals/nucleus: 1.8 Interpretive guidelines per the [place] Society of Clinic al Oncology/College of [place] Pathologists Recommendations fo r Human Epidermal Growth Factor Receptor 2 Testing in Breast Cancer (Clinical Practice Guideline Update) (Dali STANLEY et al, 2014, Arch Patho l Lab Med 138:241-256 ?? doi:10.5858/arpa.6409-2695-KV). -- HER2 Nonamplified: HER2/ARASH-17 ratio <2.0 -AND- avg. numb er HER2 signals/nucleus <4.0 -- HER2 Equivocal: HER2/ARASH-17 ratio <2.0 -AND- avg. number HER2 signals/nucleus d4.0 and <6.0 -- HER2 Amplified: HER2/ARASH-17 ratio d2.0 -OR- avg. number H ER2 signals/nucleus d6.0 INTERPRETATION: No evidence of amplification of the HER2 gene was detected ( HER2/ARASH-17 ratio 1.2). ADDITIONAL COMMENTS: The IQFISH pharmDx test has been approved by the FDA for the evaluation of HER2 (ERBB2) gene amplification status in formalin-fixed, paraffin-embedded breast cancer tissue specimens and gastric or gastroesophageal junction adenocarcinoma. ??It is intended f or use as an adjunct to other existing clinicopathologic information used to evaluate patients with such tumors. This test was developed and its p erformance characteristics determined by the [facility], [facility]. Electronically Signed Out By: Debbie Willoughby M.D., [facility] CPT Codes: A: 42671-WSU1, [id number] TESTING LAB LOCATION: [facility] [address], [address] [address] COLLECTION SITE: Client: ??[facility] Location: ??[facility] (S) Specimen Anatomical Collection Method Collection Time Receive d Time (Source) Location / / Volume Laterality 01/25/2017 11:30 01/27/2017 8:03 AM CDT AM CDT Simon Claros MD LAB - BODY FLUIDS ORDERABLES Performing Organization Address City/State/ZIP Code Phon e Number [facility] Surgical pathology exam (01/25/2017 11:30 AM CDT) Component Value Ref Test Analysis Performed Pathologis t Range Method Time At [facility] Copath Patient Name: DARELL JACKSON Report MR#: [id number] Specimen #: [id number] Collected: 01/25/2017 Received: 01/25/2017 Reported: 01/26/2017 16:52 Ordering Phy(s): SIMON CLAROS For improved result formatting, select 'View Enhanced Report Format' under Linked Documents section. SPECIMEN(S): Right stereotactic breast needle biopsy, 1:00, 8 cm from nip ple, 1.0 cm size FINAL DIAGNOSIS: Right breast, 1:00, 8 cm from nipple, stereotactic guided ne edle biopsy- - Invasive mammary carcinoma, with ductal and lobular featur es, [place] grade 2/3([place] score 6/9) (Please see micro scopic description) -Estrogen receptor positive (>80%) and progesterone receptor positive (>80%) -Her 2 by FISH is ordered and pending Electronically signed out by: Rebecca Osuna M.D. CLINICAL HISTORY: 1.0 cm in size microcalcification GROSS: The specimen is received in two containers with the patient' s name and proper identification. ??The first container is labeled rig ht breast stereotactic core biopsy specimen with microcalcifications a t 1:00, 8 cm from nipple, 1.0 cm in size. ??The first container contains yellow-pink fibrofatty breast tissue core fragments measuring 1.6 x 0.4 x 0.2 cm in aggregate. ??The second container is labeled right breast s tereotactic core biopsy specimens without evident microcalcifications at 1:00, 8 cm from nipple, 1.0 cm in size. ??The second container contain s yellow-pink fibrofatty breast tissue fragments measuring 1.2 x 0.2 x 0.2 cm in aggregate. ??The specimens are entirely submitted in two jalen settes. Cassette 1-with microcalcifications Cassette 2-without microcalcifications. (Dictated by: Tuyet Brownlee 01/25/2017 01:30 PM) MICROSCOPIC: The cores submitted as with evident microcalcifications show an invasive carcinoma with a prominent lobular phenotype, however focal tubular formation is also present. The Cecilia score is 3 for tub ules, 2 for nuclear pleomorphism and 1 for mitosis with a total score of 6 of 9 and grade 2 of 3. ??Microcalcifications are identified associate d with invasive carcinoma. ??Definitive in situ component is not id entified.. The cores submitted as without evident microcalcifications s how sclerotic breast tissue, focally showing scant amount of porfirio or associated with scant microcalcifications. A cytokeratin AE1/AE3 and E-cadherin stain is performed to michele grant delineate the phenotype of this tumor. ??E-cadherin is stron gly positive, which usually indicates a ductal carcinoma. ??However this m ammary carcinoma is given a provisional diagnosis of invasive carci noma with ductal and lobular features. ??The final delineation will be performed on the resection specimen where more tumor is available for rev iew. Slides have been shown to my colleague Dr. Caceres who conc urs. Estrogen receptor is positive (>80%) and Progesterone recept or is positive (>80%) Her 2 by FISH is ordered and pending, and the results will b e reported as an addendum IMMUNOHISTOCHEMICAL ANALYSIS FOR ESTROGEN AND PROGESTERONE R ECEPTORS RESULTS: ESTROGEN RECEPTORS: Positive (>80 % of tumor cell nuclei stain positive) Intensity of staining moderate PROGESTERONE RECEPTORS: Positive (>80 % of tumor cell nuclei stain positive) Intensity of staining moderate Performed on paraffin block: 1 External and internal controls stain appropriately. Standard assay conditions are met. Assay Conditions: Fixative and processing: ??10% neutral buffered formalin, pa raffin embedded. Cold ischemia time less than one hour. ??Time of specimen co llection 11:30 AM. ??Time placed in 11:33 AM Total duration of formalin fixation greater than 6 hours and less than 72 hours. Staining method used: ??[place] predilute monoclonal antibod ies, estrogen receptor clone SP1 and progesterone receptor clone 1E2, anti gen heat retrieval in EDTA alkaline pH for 60 minutes, iovationv iew detection system and automatic immunostainer. Scoring system: ??The ASCO-CAP scoring guidelines are used. ??A positive test is defined as positive nuclei staining in greater than or equal to 1% of tumor cells. ??A negative test is defined as nuclear s taining in less than 1% of tumor cells. ??For positive tests, an estima tion of intensity of nuclear staining over the entire tumor on tissu e sections is also provided. Reference: ??Ginger, , MILTON Barrera, Tony, M, et al. ??[place] Society of Clinical Oncology/College of [place] Pathologists guidel ine recommendations for immunohistochemical testing of estrogen and progesterone receptors in breast cancer, Arch Pathol Lab Med . 2010;134:907-922 CPT Codes: A: 37801-BE0, 04934-RBS, 82157-LM, 85330-ZR, HFISH, SOH, 883 42-IHC TESTING LAB LOCATION: [address] ??[address] COLLECTION SITE: Client: [facility] Location: BC (S) Specimen Anatomical Collection Method Collection Time Receive d Time (Source) Location / / Volume Laterality 01/25/2017 11:30 01/25/2017 AM CDT 12:22 PM CDT Simon GARCIA - [facility] Organization Address City/State/ZIP Code Phon e Number COPATH documented in this encounter Visit Diagnoses Diagnosis Microcalcifications of the breast Mammographic microcalcification documented in this encounter Administered Medications Inactive Administered Medications - up to 3 most recent administrations Medication Order MAR Action Action Date Dose Rate Site lidocaine 1 % injection 5 mL Given by Other 01/25/2017 11:22 AM CDT 5 mLs 5 mL, Subcutaneous, ONCE, On Wed01/25/17 at 1145, For 1 dose lidocaine 1% with EPINEPHrine Given by Other 01/25/2017 11:22 AM CDT 10 mLs 1:100,000 injection 10 mL 10 mL, Intradermal, ONCE, On Wed01/25/17 at 1145, For 1 dose documented in this encounter Additional Health Concerns Infection Onset Date Last Indicated Resolved Time 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, 01/08/2017 9 06/08/17, 08/26/17 documented as of this encounter Care Teams Sales Relationship Manager Relationship Specialty Start Date End Date Simon Claros MD PCP - General Internal Medicine 09/22/12 08/20/21 Simon Claros MD PCP - Assigned PCP 06/18/16 01/17/19 [address] [place] [address] Simon Claros MD Assigned PCP 06/18/16 03/01/21 [address] [place] [place] [address] documented as of this encounter
--- OUTSIDE RECORDS SUMMARY | 2022-08-20 14:28 | XMS_ITS | Encounter Summary ---
:1945 Author Organization [place] Address [address] [place] [address] Care Team Providers Name Role Phone Simon Claros MD Primary Care Provider Simon Claros MD Unavailable Simon Claros MD Unavailable Reason for Visit Auth/Cert Specialty Diagnoses / Procedures Referred By Contact Refer red To Contact Surgery Diagnoses RIGHT BREAST CANCER Sh Periop Services Procedures LUMPECTOMY BREAST WITH SEED LOCALIZATION BIOPSY NODE SENTINEL [address], [address] [place] [address] Phone: Referral ID Status Reason Start Date Expiration Date Visits Requ ested Visits Authorized [id number] 1 1 Encounter Details Date Type Department Care Team Description 02/08/2017 Surgery [facility] Saritha Atkins LOC ALIZED RIGHT [place] PeriOP MD [place] LUMPECTOMY WITH Services [address] SENTINEL NODE BIOPSY [address], [address] [place] [address] [place] [address] [phone] Surgery Details Date/Time Status Location OR Service Patient Case Class Case Type Trauma Class Case? 02/08/17 12:00 Posted Z SH SD SD 20 General Same Day PM Surgery Panel 1 Procedure LRB Anes Op Region Wound Class Commen ts SEED LOCALIZED RIGHT Right General Breast I-Clean SEED LOCALIZED RIGHT LUMPECTOMY WITH SENTINEL LUMPECTOMY WITH SENTINEL NODE BIOPSY NODE BIOPSY BIOPSY, LYMPH NODE, Right General Axilla I-Clean SENTINEL Surgeon Surgeon Role Service Panel Saritha Atkins MD Primary General 1 Fatuma Charles PA-C Assisting Senior Cobol Developer Authoriz ation 1 documented in this encounter Social History [...] Sign Reading Time Taken Comments Blood Pressure 134/70 02/08/2017 2:15 PM CDT Pulse 74 02/08/2017 10:35 AM CDT Temperature 36.4 ??C (97.5 ??F) 02/08/2017 1:45 PM CDT Respiratory Rate 18 02/08/2017 2:15 PM CDT Oxygen Saturation 97% 02/08/2017 2:15 PM CDT Inhaled Oxygen Concentration - - Weight 65.8 kg (144 lb 15.4 oz) 02/08/2017 10:35 AM CDT Height 167.6 cm (5' 6) 02/08/2017 10:35 AM CDT Body Mass Index 23.4 02/08/2017 10:35 AM CDT documented in this encounter Discharge Instructions Discharge InstructionsJennifer Ozuna RN - 02/08/2017 12:45 PM CDT Same Day Surgery Discharge Instructions for Sedation and General Anesthesia ?? It's not unusual to feel dizzy, light-headed or faint for up to 24 hours after surgery or while taking pain medication. If you have these symptoms: sit for a few minutes before standing and have someone assist you when you get up to walk or use the bathroom. ?? You should rest and relax for the next 24 hours. We recommend you make arrangements to have an adult stay with you for at least 24 hours after your discharge. Avoid hazardous and strenuous activity. ?? DO NOT DRIVE any vehicle or operate mechanical equipment for 24 hours following the end of your surgery. Even though you may feel normal, your reactions may be affected by the medication you have received. ?? Do not drink alcoholic beverages for 24 hours following surgery. ?? Slowly progress to your regular diet as you feel able. It's not unusual to feel nauseated and/or vomit after receiving anesthesia. If you develop these symptoms, drink clear liquids (apple juice, jazmin dave, broth, 7-up, etc. ) until you feel better. If your nausea and vomiting persists for 24 hours, please notify your surgeon. ?? All narcotic pain medications, along with inactivity and anesthesia, can cause constipation. Drinking plenty of liquids and increasing fiber intake will help. ?? For any questions of a medical nature, call your surgeon. ?? Do not make important decisions for 24 hours. ?? If you had general anesthesia, you may have a sore throat for a couple of days related to the breathing tube used during surgery. You may use Cepacol lozenges to help with this discomfort. If it worsens or if you develop a fever, contact your surgeon. ?? If you feel your pain is not well managed with the pain medications prescribed by your surgeon, please contact your surgeon's office to let them know so they can address your concerns. If you have concerns or questions about your procedure, please contact Dr Atkins at [phone] HOME CARE FOLLOWING BREAST Lumpectomy DISCOMFORT You may expect some tenderness and aching at your breast. Use Tylenol or the prescription your doctor has given you. DRAINAGE You may expect a small amount of drainage from your incision. SKIN CLOSURE If you have stitches which need to be removed, your doctor will have you make a return appointment to do this. If you have stitches beneath the skin, they will not need to be removed as they will absorb in time. Your incision may be covered by steri-strips, which are thin white tapes. These will peel off by themselves in 5-7 days. If they do not, you may remove them carefully after 7 days. DRESSING Keep dressing in place and dry until your doctor tells you to remove it. SUPPORT Wear a bra for support for 10 days to 2 weeks, day and night. ACTIVITY Avoid strenuous activities such as jogging, tennis, raquetball, etc. for 2 weeks. Also be careful ofstretching activities with operative side for 2 weeks. CONTACT YOUR DOCTOR IF THE FOLLOWING DEVELOPS: 1. A fever that is 100?? or above that persists more than 1 day 2. If there is a large amount of drainage or bleeding. 3. Prolonged tenderness or ???hot spots?? in the breast. 4. Severe pain that is not relieved by your prescription. 5. If there is drainage with an odor. documented in this encounter Medications at Time [...] by mouth 0 10/2017 daily LIPOSOMAL CURCUMIN [place]-3 Fatty Acids Take 6 mLs by mouth 0 08/26/2017 (OMEGA ESSENTIALS BASIC) daily LIQD documented as of this encounter Progress Notes Saritha Atkins MD - 02/08/2017 2:40 PM CDT I have already discussed the results with the patient. documented in this encounter H&P Notes Kitty Houston - 02/08/2017 5:22 AM CDT This note is for the purpose of making the H&P performed in the clinic within the last 30 days available in the hospital surgical encounter. Source Note - Simon Claros MD - 02/03/2017 7:32 AM CDT [place] [address] [facility] [address] Dept: [phone] PRE-OP EVALUATION: Today's date: 02/03/2017 Darell Jackson (: 1945) presents for pre-operative evaluation assessment as requested by Dr. Atkins. She requires evaluation and anesthesia risk assessment prior to undergoing surgery/procedurefor treatment of R breast mass. Proposed procedure: lumpectomy Date of Surgery/ Procedure: TBD Time of Surgery/ Procedure: TBD Hospital/Surgical Facility: [facility] Primary Physician: Simon Claros Type of Anesthesia Anticipated: to be determined Patient has a Health Care Directive or Living Will: Yes 1. NO - Do you have a [...] a slight hill or at night? 5. NO - Do you currently have a cold, [...] been told to take iron pills? 11. NO - Have you had any abnormal blood loss such as black, tarry or bloody stools, or abnormal vaginal bleeding? 12. NO - Have you ever had a blood transfusion? 13. YES - Have you or any of your relatives ever had problems with anesthesia? - Patient's sister takes longer to recover from anesthesia 14. NO - Do you have sleep apnea, excessive snoring or daytime drowsiness? 15. NO - Do you have any prosthetic heart valves? 16. NO - Do you have prosthetic joints? - R hip 17. NO - Is there any chance that you may be ? HPI: Brief HPI related to upcoming procedure: Patient had a recent abnormal mammogram that showed a 1 cm lump of the right breast. 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 MEDICAL HISTORY: Patient Active Problem List Diagnosis Date Noted ??? Strain of neck muscle, initial encounter 01/25/2017 Priority: Medium ??? Benign essential hypertension 01/05/2017 Priority: Medium ??? Chronic obstructive pulmonary disease, unspecified COPD type (H) 01/05/2017 Priority: Medium ??? Right hip pain 03/10/2016 Priority: Medium ??? ACP (advance care planning) 06/02/2016 Advance Care Planning 06/02/2016: Receipt of ACP document: Received: Health Care Directive which waswitnessed or notarized on 02/26/16. Document previously scanned on 03/10/16. Validation form previously completed and sent to be scanned. Code Status reflects choices in most recent ACP document. Confirmed/documented designated decision maker(s). Added by Sruthi Andersen RN, Advance Care Planning Liaison. Past Medical History: Diagnosis Date ??? COPD (chronic obstructive pulmonary disease) (H) ??? Hypertension Past Surgical History: Procedure Laterality Date ??? ARTHROPLASTY HIP ANTERIOR Right 03/10/2016 Procedure: ARTHROPLASTY HIP ANTERIOR; Surgeon: Wayne Estevez MD; Location: OR ??? BONDERIZER SURGERY hysterectomy Current Outpatient Prescriptions Medication Sig Dispense Refill ??? albuterol (PROAIR HFA/PROVENTIL HFA/VENTOLIN HFA) 108 (90 BASE) MCG/ACT Inhaler Inhale 2-4 puffsinto the lungs ??? loratadine (CLARITIN) 10 MG tablet Take 10 mg by mouth ??? Cholecalciferol (VITAMIN D3 PO) Take 2,000 Units by mouth daily ??? [place]-3 Fatty Acids (OMEGA ESSENTIALS BASIC) LIQD Take 6 mLs by mouth daily ??? NONFORMULARY Take 1 Tablespoonful by mouth daily ALL NATURAL GREENS ??? NONFORMULARY Take 29 mLs by mouth daily LIQUIDRIVE ANTIOXIDENT (1 ounce) ??? NONFORMULARY Take 5 mLs by mouth daily LIPOSOMAL GLUTATHIONE ??? NONFORMULARY Take 6 mLs by mouth daily LIPOSOMAL CURCUMIN ??? [DISCONTINUED] albuterol (PROAIR HFA, PROVENTIL HFA, VENTOLIN HFA) 108 (90 BASE) MCG/ACT inhalerInhale 2 puffs into the lungs 2 times daily as needed OTC products: none Allergies Allergen Reactions ??? Other [No Clinical [...] for fever, chills, change in weight I: She reports biopsy sight is evolving as she expected. NEGATIVE for worrisome rashes, moles or lesions [...] NEGATIVE for frequency, dysuria, or hematuria M: She reports right hip pain. NEGATIVE for significant arthralgias or myalgia N: She also reports paresthesias of the right lateral thigh. NEGATIVE for weakness, dizziness or other paresthesias E: NEGATIVE for temperature intolerance, skin/hair changes H: NEGATIVE for bleeding problems P: NEGATIVE for changes in mood or affect This document serves as a record of the services and decisions personally performed and made by GaryL. Hyacinth MD. It was created on his/her behalf by Kim Tian, a trained center medical and lab director. The creation of this document is based the provider's statements to the center medical and lab director. Scribe Kim Tian 8:09 AM, February 03, 2017 EXAM: BP 134/74 (BP Location: Right arm, Patient Position: Chair, Cuff Size: Adult Large) Pulse 66 Temp 97.1 ??F (36.2 ??C) (Oral) Ht 5' 6 (1.676 m) Wt 142 lb (64.4 kg) SpO2 97% ? No BMI 22.92 kg/m2 GENERAL APPEARANCE: healthy, alert and no distress EYES: EOMI, PERRL HENT: ear canals and TM's normal and nose and mouth without ulcers or lesions NECK: no adenopathy, no asymmetry, masses, or scars and thyroid normal to palpation RESP: lungs clear to auscultation - no rales, rhonchi or wheezes BREAST: On the superior medial compartment, there is a bruise of the biopsy site. She has dense fibrocystic changes. No axillary node enlargement. CV: regular rates and rhythm, normal S1 [...] No axillary, cervical, or supraclavicular nodes DIAGNOSTICS: BMP, CBC and EKG IMPRESSION: The proposed surgical procedure is considered LOW risk. REVISED CARDIAC RISK INDEX No serious cardiac risks : No identified additional risks ICD-10-CM 1. Malignant neoplasm of right female breast, unspecified site of breast (H) C50.911 2. Benign essential hypertension I10 3. Chronic obstructive pulmonary disease, unspecified COPD type (H) J44.9 4. Preop general physical exam Z01.818 Basic metabolic panel CBC with platelets EKG 12-lead complete w/read - Clinics RECOMMENDATIONS: --Patient is to take all scheduled medications on the day of surgery. APPROVAL GIVEN to proceed with proposed procedure, without further diagnostic evaluation Signed Electronically by: Simon Claros MD Copy of this evaluation report is provided to requesting physician. Len Preop Guidelines The information in this document, created by the center medical and lab director for me, accurately reflects the services I personally performed and the decisions made by me. I have reviewed and approved this document for accuracy prior to leaving the patient care area. Simon Claros MD 8:09 AM, 02/03/17 documented in this encounter Nursing Notes Saritha Rizo, RN - 02/08/2017 2:40 PM CDT PNDS met, po per I&O sheet. Pt dressed, up in recliner and transported to Phase 2. Pt and familyverbalize understanding of discharge instructions- denies questions- Up in W/C- transported to door for discharge to home documented in this encounter Miscellaneous Notes Brief Op Note - Fatuma Charles PA-C - 02/08/2017 12:47 PM CDT [facility] Brief Operative Note Pre-operative diagnosis: RIGHT BREAST CANCER Post-operative diagnosis Breast cancer Procedure: Procedure(s): SEED LOCALIZED RIGHT LUMPECTOMY WITH SENTINEL NODE BIOPSY - Wound Class: I-Clean - Wound Class: I-Clean Surgeon(s): Surgeon(s) and Role: * Saritha Atkins MD - Primary * Fatuma Charles PA-C - Assisting Estimated blood loss: 10 mL Specimens: ID Type Source Tests Collected by Time Destination A : RIGHT BREAST MASS Tissue Breast, Right SURGICAL PATHOLOGY EXAM Saritha Atkins MD 02/08/2017 12:01 PM B : RIGHT AXILLARY SENTINEL LYMPH NODE Tissue Axilla, Right SURGICAL PATHOLOGY EXAM Saritha Atkins MD 02/08/2017 12:24 PM Findings: Same as above Fatuma Charles PA-C Op Note - Saritha Atkins MD - 02/08/2017 10:16 AM CDT General Surgery Operative Note PREOPERATIVE DIAGNOSIS: RIGHT BREAST CANCER POSTOPERATIVE DIAGNOSIS: Breast cancer PROCEDURE: SEED LOCALIZED LUMPECTOMY WITH SENTINEL LYMPH NODE BIOPSY, INTRAOPERATIVE TRACER INJECTION ANESTHESIA: General. PREOPERATIVE MEDICATIONS: Ancef SURGEON: Saritha Atkins MD COACH TOUR DRIVER: Fatuma Charles PA-C A assistant import manager was necessary owing to challenging retraction, visualization, and exposure. INDICATIONS: New diagnosis right breast cancer. DESCRIPTION OF PROCEDURE: The patient was taken to the operating suite, and LMA was placed. The right breast and axilla were prepped and draped in a sterile fashion. Surgeon-initiated timeout was acknowledged. We injected approximately 5 cc of methylene blue diluted 1:1 with saline in the deep dermal space of the areola. We then made a circumareolar incision and took this down through skin and subcutaneous tissue. We dissected toward the seed and followed it until we were oriented directly above it.We then created our partial mastectomy specimen by getting around the tissue deep to and around the seed in accordance with the post-placement mammograms. We took this down to the chest wall and came around the tumor. Specimen was then removed and inked according to protocol. We then set about performing our sentinel lymph node dissection. A transverse incision was made through a skin crease into the axilla, and I took this down through skin and subcutaneous tissue. We followed an area of elevated radiotracer counts and encountered latia tissue with blue staining. This was removed and sent as sentinel lymph node biopsy. We then did a tracer count of the remaining axillary bed and found no significant residual radiotracer uptake. These nodes were sent for permanent section according to the Z11 trial. The wounds were irrigated at this point and closed in layers. Specimenmammogram was performed and we received word from the Breast Center that the specimen contained the lesion, clip and seed. The wounds were dressed, and the patient was awakened and taken to the PACU instable condition. At the conclusion of the case, all lap and needle counts were correct. ESTIMATED BLOOD LOSS: 15 mL INTRAOPERATIVE FINDINGS: Palpable right breast cancer. Saritha Atkins MD documented in this encounter Plan of Treatment Upcoming Encounters Date Type Specialty Care Team Description 10/26/2022 Lab Oncology Yris Perez MD [address] [place] [id number] (Wo rk) 11/03/2022 Oncology Visit Oncology Yris Perez MD [address] [facility] [address] [place] [address] (Wo rk) documented as of this encounter Procedures Procedure Name Priority Date/Time Associated Comments Diagnosis SURGICAL PATHOLOGY Routine 02/08/2017 12:01 Resul ts for this EXAM PM CDT procedure are i n the results section. BIOPSY, LYMPH NODE, 02/08/2017 11:27 Breast cancer SENTINEL AM CDT LUMPECTOMY, BREAST, 02/08/2017 11:27 Breast cancer WITH RADIOACTIVE SEED AM CDT LOCALIZATION documented in this encounter Results Surgical pathology exam (02/08/2017 12:01 PM CDT) Component Value Ref Test Analysis Performed At [facility] gist Range Method Time Signature Copath Report Patient Name: DARELL JACKSON MR#: [id number] Specimen #: [id number] Collected: 02/08/2017 Received: 02/08/2017 Reported: 02/09/2017 14:22 Ordering Phy(s): SARITHA ATKINS Additional Phy(s): SIMON CLAROS For improved result formatting, select 'View Enhanced Report Format' under Linked Documents section. SPECIMEN(S): A: Breast mass, right B: [place] lymph node, right FINAL DIAGNOSIS: <INVASIVE CARCINOMA OF THE BREAST: Treated by lumpectomy and right axillary sentinel lymph node dissection Applies to: Lumpectomy plus 4 sentinel lymph nodes Specimen Procedure: See above Lymph Node Sampling: [place] lymph node sampling performed Specimen Laterality: Right breast Tumor Site: Invasive Carcinoma: 1:00 - 8 cm from nipple Tumor Histologic Type of Invasive Carcinoma: Invasive ductal carci noma Glandular (Acinar)/Tubular Differentiation: Score 3 Nuclear Pleomorphism: Score 2 Mitotic Count: Score 1 [place] Grade: Grade 2 Extent Tumor Size: Size of Largest Invasive Carcinoma: 1.2 cm Tumor Focality: One focus Skin Invasion: Not applicable DCIS Ductal Carcinoma In Situ (DCIS): Present Estimated Size (extent) of DCIS: 1 cm Architectural Patterns: Solid and cribriform Nuclear Grade: Intermediate Necrosis: Absent Lobular Carcinoma In Situ (LCIS): Absent Margins Invasive Carcinoma: Negative Distance from closest margin: 0.3 cm from deep margin, all o ther margins are widely negative Ductal Carcinoma In Situ (DCIS): Negative Distance of DCIS from Closest Margin: More than 0.3 cm from deep margin Lymph-Vascular Invasion: Present Dermal Lymph-Vascular Invasion: Not applicable Treatment Effect: Response in the Breast: Absent Treatment Effect: Response in the Lymph Nodes: Absent ? Lymph Nodes ? Total Number of Lymph Nodes Examined: Four There are four sentinel lymph nodes which are examined by ltiple permanent section levels. ??All sentinel lymph nodes are neg ative for malignancy including isolated tumor cell clusters. Estrogen Receptor Results and Interpretation: Positive Tumor Cells with Nuclear Positivity: 80 % of tumor nuclei po sitive with moderate staining Results from Specimen: Case number [id number] Progesterone Receptor Results and Interpretation: Positive Tumor Cells with Nuclear Positivity: 80 % of tumor nuclei po sitive with moderate staining Results from Specimen: Case number [id number] In Situ Hybridization (FISH or CISH) for HER2 Results: Not a mplified Results from Specimen: Case number [id number] Pathologic Staging (pTNM) Primary Tumor (pT): ?pT1c: Tumor > 10 mm but <= 20 mm in greatest dimension Regional Lymph Nodes Modifier: ?? (sn): Only sentinel node(s) evaluated Category (pN): ?? pN0: No regional lymph node metastasis arline ntified histologically Electronically signed out by: Simon Angelo M.D. CLINICAL HISTORY: Recently diagnosed right breast cancer GROSS: A. The specimen is received in formalin with the patient's n lala and proper identification labeled right breast mass . ??The sp ecimen consists of 36 g yellow-pink fibrofatty breast fragment(7.4 x 4.3 x 2.3 cm). The surgeon has previously inked the specimen according to the inked protocol: ??Blue for superior, purple for inferior, or pritesh for anterior, black for posterior, green for medial, yellow for lateral. ??On section there is a pink stellate tumor with biopsy cavity me asuring approximately 1.2 x 0.8 x 0.8 cm. ??The tumor is 0.3 cm from the deep margin, 1.4 cm from the anterior margin, 1 cm from the media l margin, 0.4 cm from the lateral margin, 2.5 cm from the superior mar gin, 4 cm from the inferior margin. ??Surrounding the tumor and extend ing inferiorly is pink fibrous tissue accounting for approximate 60% of the total volume. ??There is a radioactive seed identified. ??Th e seed is removed and sent back to the breast center. ??The specimen i s entirely sequentially submitted from superior to inferior. Cassette 1-superior margin-en face Cassettes 1-7-xmoduhtz section Cassettes 5-6-hkdtfquz section Cassettes 9-8-xczptzfn section Cassettes 9-4-lvphbpeh section Cassettes 56-23-zbhdtcoz section Cassettes 69-37-oslrxexc section Cassettes 07-09-nktwcedd section Cassettes 63-83-xmnzvdoz section Cassettes 76-83-swoaikio section Cassettes 16-83-wdlkvrqr section Cassettes 07-78-zrisckrf section Cassettes 33-17-tdzdpnww section Cassettes 26- inferior margin-en face The specimen is received in formalin with the patient's name and proper identification labeled right axillary sentinel node. ??The specimen consists of yellow fatty tissue fragments measuring 4.8 x 3. 5 x 1.4 cm. The specimen is dissected for lymph nodes. (Dictated by: Sreekanth Browlnee 02/08/2017 02:37 PM) MICROSCOPIC: Microscopic performed CPT Codes: A: 01488-GE6 B: 42049-RW7 TESTING LAB LOCATION: [address] ??[id number] COLLECTION SITE: Client: [facility] Location: SHSDOR (S) Specimen (Source) Anatomical Collection Method Collection Time Re ceived Time Location / / Volume Laterality Tissue specimen RIGHT BREAST 02/08/2017 12:01 (specimen) STRUCTURE / PM CDT Unknown Comment: INKING PER PROTOCOL Tissue specimen (specimen) STRUCTURE OF RIGHT AXILLARY 02/08/2017 12:24 PM CDT REGION / Unknown Saritha GARCIA - [place] Performing Organization Address City/State/ZIP Code Phon e Number COPATH documented in this encounter Visit Diagnoses Not on filedocumented in this encounter Administered Medications Inactive Administered Medications - up to 3 most recent administrations Medication Order MAR Action Action Date Dose Rate Site bupivacaine 0.5 % - Given 02/08/2017 12:30 30 mLs Operative EPINEPHrine 1:200,000 PM CDT Sit e/Surgical Site injection PRN, Starting on 02/08/17 at 1230, Intra-procedure fentaNYL Citrate (PF) (SUBLIMAZE) injection Given 02/08/2017 1:29 PM CDT 50 mcg 25-50 mcg 25-50 mcg, Intravenous, EVERY 5 MIN PRN, other, acute pain while in PACU., Starting on Wed02/08/17 at 1025, MAX cumulative dose = 250 mcg. Use Fentanyl initially, as a short acting agent for acute pain control. If insufficient, or a longer acting agent is needed, begin Morphine or Hydromorphone if ordered. , PACU Given 02/08/2017 1:08 PM CDT 50 mcg HYDROcodone-acetaminophen (NORCO) 5-325 MG Given 02/08 1:47 PM CDT 1 tablet per tablet 1-2 tablet 1-2 tablet, Oral, ONCE PRN, moderate to severe pain, Starting on Wed02/08/17 at 1259, For 1 dose, One time prior to discharge. Maximum acetaminophen dose from all sources= 75 mg/kg/day not to exceed 4 grams, Post-procedure lactated ringers infusion New Bag 02/08/2017 11:29 AM CDT at 100 mL/hr, Intravenous, CONTINUOUS, Continue until IV catheter is weaned, PACU/Phase II, Starting on Wed02/08/17 at 1030, Until Wed02/08/17 at 1643 methylene blue 1% 5 mL + NaCl 0.9% Given 02/08/2017 11:37 AM CDT 4 mLs Right Breast 5 mL PRN, Starting on Wed02/08/17 at 1137, Intra-procedure ondansetron (ZOFRAN) injection 4 mg 4 mg, Intravenous, EVERY 30 MIN PRN, naida sea, vomiting, Administer over 2-5 Minutes, Starting on Wed02/08/17 at 1025, For 2 d oses, MAX total dose = 8 mg, including OR dosing. This is step 1 of the nausea and vomiting protocol. If not resolved in 15 minutes, then go to step 2 (Prochlorpera zine if ordered). Irritant., PACU/Phase II ondansetron (ZOFRAN-ODT) ODT tab 4 mg 4 mg, Oral, EVERY 30 MIN PRN, nausea, vo miting, Starting on Wed02/08/17 at 1025, For 2 doses, MAX total dose = 8 mg, including OR dosin g. This is step 1 of the nausea and vomiting protocol. If not resolved in 15 mi nutes, then go to step 2 (Prochlorperazine if ordered)., PACU/Phase II sodium chloride 0.9% Given 02/08/2017 12:30 PM 100 mLs Operative Site/Surgical (bottle) irrigation CDT Site PRN, Starting on Wed02/08/17 at 1230, Intra-procedure documented in this encounter Active and Recently Administered Medications Times are shown in CDT. Scheduled Medication Order 02/06/2017 02/07/2017 02/08/2017 ceFAZolin sodium-dextrose (ANCEF) infusion 2 g (COMPLETED) 1130 (Given - Provider: Maggie Pulliam APRN BUSINESS COMPUTERS TEACHER) Routine, 2 g, Intravenous, PRE-OP/PRE-WI OCEDURE, Starting Wed02/08/17 at 1023, For 1 dose, Give first dose within 1 hour PRIOR to incision. If patient weight is greater than or equal to 120 kg increase dose to 3 g., Indications: Perioperative Pharmacoprophylaxis, Pr e-procedure Continuous Medication Order 02/06/2017 02/07/2017 02/08/2017 lactated ringers infusion 1129 ( New Bag - Provider: Maggie Pulliam APRN BUSINESS COMPUTERS TEACHER)1246 (Anesthesia Volume Adjustment - Provider: Maggie Pulliam APRN CRNA) at 100 mL/hr, Intravenous, CONTINUOUS, C ontinue until IV catheter is weaned, PACU/Phase II, Starting Wed02/08/17 at 1030, Until Wed02/08/17 at 1643 PRN Medication Order 02/06/2017 02/07/2017 02/08/2017 bupivacaine 0.5 % - EPINEPHrine 1:200,000 injection (CANCELED) 1230 (Given - Provider: Fatuma Charles PA-C - Comment: Injection) PRN, Starting Wed02/08/17 at 1230, Intra-procedure fentaNYL Citrate (PF) (SUBLIMAZE) injection 25-50 mcg 1308 (Given - Provider: Saritha Rizo RN)1329 (Given - Provider: Saritha Rizo RN) 25-50 mcg, Intravenous, EVERY 5 MIN PRN, Starting Wed02/08/17 at 1025, other, acute pain while in PACU., MAX cumulative dose = 250 mcg. Use Fentanyl initially, as a short acting agent for acute pain con trol. If insufficient, or a longer actin g agent is needed, begin Morphine or Hydromorphone if ordered. , PACU fentaNYL Citrate (PF) (SUBLIMAZE) injection 25-50 mcg 25-50 mcg, Intravenous, EVERY 15 MIN PRN , Starting 02/08/17 at 1245, other, acute pain while in Phase II, MAX cumulative dose = 250 mcg. Use Fentanyl initially, as a short acting agent for acute pain control. If insufficient, or a longer a cting agent is needed, begin Morphine or Hydromorphone if ordered., Phase ll HYDROcodone-acetaminophen (NORCO) 5-325 MG per tablet 1-2 tablet (COMPLETED) 1347 (Given - Provider: Saritha Rizo RN) 1-2 tablet, Oral, ONCE PRN, moderate to severe pain, Starting Wed02/08/17 at 1259, For 1 dose, One time prior to discharge. Maximum acetaminophen dose from all sources= 75 mg/kg/day not to exceed 4 grams, Post-procedure HYDROmorphone (PF) (DILAUDID) injection 0.3-0.5 mg 0.3-0.5 mg, Intravenous, EVERY 10 MIN WI N, Starting Wed02/08/17 at 1025, Until Wed02/08/17 at 1643, other, acute pain.?May administer if Respiratory Rate is greater than 10, PACU/Phase II, If fentany l is also ordered, use HYDROmorphone if pain control insufficient with fentanyl or a longer acting agent is needed. Max cumulative dose = 2 mg meperidine (DEMEROL) injection 12.5 mg 12.5 mg, Intravenous, EVERY 15 MIN PRN, 2 doses, Starting Wed02/08/17 at 1025, Until Wed02/08/17 at 1643, post anesthesia shivering, PACU/Phase II methylene blue 1% 5 mL + NaCl 0.9% 5 mL (CANCELED) 1137 (Given - Provider: Fatuma Charles PA-C) PRN, Starting Wed02/08/17 at 1137, Intra-procedure naloxone (NARCAN) injection 0.1-0.4 mg 0.1-0.4 mg, Intravenous, EVERY 2 MIN PRN , opioid reversal, Starting Wed02/08/17 at 1025, For 24 hours, For apnea or imminent respiratory arrest: give 0.4 mg IV undiluted Q 2 minutes PRN until desired de gree of reversal is obtained, stop opioi d and notify provider. Continue monitoring until discharge are criteria met for a minimum of 2 hours. For severe sedation, decrease in respiratory depth, quality or Respiratory Rate greater than 8: give 0.1 mg IV Q 2 minutes x 3 doses, stop opioid and notify provider. Try to minimize reversal of analgesia especially in end-of-life patients. Continue monitoring u ntil discharge criteria are met for a minimum of 2 hours., PACU/ Phase II ondansetron (ZOFRAN) injection 4 mg(Linked Group 1) 4 mg, Intravenous, EVERY 30 MIN PRN, naida sea, vomiting, Administer over 2-5 Minutes, Starting 02/08/17 at 1025, For 2 doses, MAX total dose = 8 mg, including OR dosing. This is step 1 of the nausea an d vomiting protocol. If not resolved in 15 minutes, then go to step 2 (Prochlorperazine if ordered). Irritant., PACU/Phase II ondansetron (ZOFRAN-ODT) ODT tab 4 mg(Linked Group 1) 4 mg, Oral, EVERY 30 MIN PRN, nausea, vo miting, Starting 02/08/17 at 1025, For 2 doses, MAX total dose = 8 mg, including OR dosing. This is step 1 of the nausea and vomiting protocol. If not resolved in 15 minutes, then go to step 2 (Prochlorperazine if ordered)., PACU/Phase II ORAL Pain Medications - may administer as ordered by surgeon for take home use CONTINUOUS PRN, Starting Wed02/08/17 at 1025, Until 02/08/17 at 1643, May administer oral pain medications as ordered by surgeon for take home use. Discontinue IV pain medication prior to administration of oral pain medication., PACU/Phase II sodium chloride 0.9% (bottle) irrigation (CANCELED) 1230 (Given - Provider: Fatuma Charles PA-C) PRN, Starting Wed02/08/17 at 1230, Intra-procedure Linked Groups Order Group 1: ondansetron (ZOFRAN-ODT) ODT tab 4 mgJump to med 4 mg, Oral, EVERY 30 MIN PRN, nausea, vo miting, Starting 02/08/17 at 1025, For 2 doses
MAX total dose = 8 mg, including OR dosing. This is step 1 of the nausea and vomiting protocol.&nbs p; If not resolved in 15 minutes, t hen go to step 2 (Prochlorperazine if ordered).
PACU/Phase II Or ondansetron (ZOFRAN) injection 4 mgJump to med 4 mg, Intravenous, EVERY 30 MIN PRN, naida sea, vomiting, Administer over 2-5 Minutes, Starting 02/08/17 at 1025, For 2 doses
MAX total dose = 8 mg, including OR dosing. This is step 1 of the n ausea and vomiting protocol. If not resolved in 15 minutes, then go to step 2 (Prochlorperazine if ordered). Irritant.
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
--- OUTSIDE RECORDS SUMMARY | 2022-08-20 14:28 | XMS_ITS | Encounter Summary ---
:1945 Author Organization [place] Address [address] [facility] [place] [address] Care Team Providers Name Role Phone Simon Claros MD Primary Care Provider Simon Claros MD Unavailable Simon Claros MD Unavailable Reason for Visit Auth/Cert Specialty Diagnoses / Procedures Referred By Contact Refer red To Contact Surgery Diagnoses RIGHT BREAST CANCER Sh Periop Services Procedures LUMPECTOMY BREAST WITH SEED LOCALIZATION BIOPSY NODE SENTINEL [address] [place] [address] Phone: Referral ID Status Reason Start Date Expiration Date Visits Requ ested Visits Authorized [id number] 1 1 Encounter Details Date Type Department Care Team Description 02/08/2017 Hospital Encounter [facility] Wilbert Jordin Toro lignant neoplasm [facility] MD Carlitos of central portion [address] of right female [facility] [place] [address] breast (H) [phone] [place] [id number] Social History Tobacco Use Types Packs/Day Years [...] by mouth 0 10/2017 daily LIPOSOMAL CURCUMIN Chloe-3 Fatty Acids Take 6 mLs by mouth 0 08/26/2017 (OMEGA ESSENTIALS BASIC) daily LIQD documented as of this encounter Plan of Treatment Upcoming Encounters Date Type Specialty Care Team Description 10/26/2022 Lab Oncology Yris Perez MD [address] [id number] (Madeleine rk) 11/03/2022 Oncology Visit Oncology Yris Perez MD [address] [id number] (Madeleine rk) documented as of this encounter Procedures Procedure Name Priority Date/Time Associated Comments Diagnosis NM LYMPHOSCINTIGRAPHY Routine 02/08/2017 11:01 Malignant Re sults for this INJECTION ONLY AM CDT neoplasm of procedure are in central portion the results of right female section. breast (H) documented in this encounter Results NM Lymphoscintigraphy Injection only (02/08/2017 11:01 AM [...] the sentinal lymph node. LEX BRODY Jordin Atkins MD [facility] NM ORDERABLES documented in this encounter Visit Diagnoses Diagnosis Malignant neoplasm of central portion of right female breast (H) Malignant neoplasm of central portion of female breast documented in this encounter Administered Medications Inactive Administered Medications - up to 3 most recent administrations Medication Order MAR Action Action Date Dose Rate Site technetium tilmanocept Given 02/08/2017 11:00 AM 0.542 millicuri es Tc99m (LYMPHOSEEK) CDT radioisotope injection 0.5 millicurie 0.5 millicurie, Subcutaneous, ONCE, On Wed02/08/17 at 1115, For 1 dose, Supplied by, and administered by Nuclear Medicine. *HW* documented in this encounter Additional Health Concerns Infection Onset Date Last Indicated Resolved Time 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, 01/08/2017 9 06/08/17, 08/26/17 documented as of this encounter Care Teams Student Development Advisor Relationship Specialty Start Date End Date Simon Claros MD PCP - General Internal Medicine 09/22/12 08/20/21 Simon Claros MD PCP - Assigned PCP 06/18/16 01/17/19 [address] [place] [address] [place] [address] Simon Claros MD Assigned PCP 06/18/16 03/01/21 [address] [place] [place] [address] documented as of this encounter
--- OUTSIDE RECORDS SUMMARY | 2022-08-20 14:28 | XMS_ITS | Encounter Summary ---
:1945 Author Organization [place] Address [address] [facility] [place] [address] Care Team Providers Name Role Phone Simon Claros MD Primary Care Provider Simon Claros MD Unavailable Simon Claros MD Unavailable Reason for Visit Reason Comments Pre-Op Exam lumpectomy, R breast Encounter Details Date Type Department Care Team Description 02/03/2017 Office Visit [facility] Simon Claros, Malign ant neoplasm of right female breast, unspecified site of breast (H) (Primary Dx); Clinic Eduardo HINES Benign essential hypertension; [address] [facility], [address] [facility] Chronic obstructive pulmonary disease, unspecified COPD type (H); [address] [place] [address] Preop general physical exam [place] [address] [place] [phone] [address] Social History Tobacco Use Types Packs/Day Years Used Date Passive Smoke Exposure - Never Smoker Smokeless Tobacco: Never Used Alcohol Use Standard Drinks/Week Comments No 0 (1 standard drink = 0.6 oz pure alcoho l) Sex Assigned at Date Recorded Female 01/27/2022 12:36 PM CDT documented as of this encounter Last Filed Vital Signs Vital Sign Reading Time Taken Comments Blood Pressure 134/74 02/03/2017 7:30 AM CDT Pulse 66 02/03/2017 7:30 AM CDT Temperature 36.2 ??C (97.1 ??F) 02/03/2017 7:30 AM CDT Respiratory Rate - - Oxygen Saturation 97% 02/03/2017 7:30 AM CDT Inhaled Oxygen Concentration - - Weight 64.4 kg (142 lb) 02/03/2017 7:30 AM CDT Height 167.6 cm (5' 6) 02/03/2017 7:30 AM CDT Body Mass Index 22.92 02/03/2017 7:30 AM CDT documented in this encounter Patient Instructions Patient InstructionsErasmo Wright CMA - 02/03/2017 7:32 AM CDT Before Your Surgery ??? Call your surgeon [...] and have clean sheets on your bed. documented in this encounter Progress Notes Simon Claros MD - 02/03/2017 7:32 AM CDT [address] [address] Dept: [phone] PRE-OP EVALUATION: Today's date: 02/03/2017 Darshana Brooks (: 1945) presents for pre-operative evaluation assessment as requested by Dr. Atkins. She requires evaluation and anesthesia risk assessment prior to undergoing surgery/procedurefor treatment of R breast mass. 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 albuterol (PROAIR HFA/PROVENTIL HFA/VENTOLIN HFA) 108 (90 BASE) MCG/ACT Inhaler Inhale 2-4 puffsinto the lungs ??? loratadine (CLARITIN) 10 MG tablet Take 10 mg by mouth ??? Cholecalciferol (VITAMIN D3 PO) Take 2,000 Units by mouth daily ??? Elrama-3 Fatty Acids (OMEGA ESSENTIALS BASIC) LIQD Take [...] It was created on his/her behalf by iKm Tian, a trained medical assembler. The creation of this document is based the provider's statements to the medical assembler. Scribnoy Tian 8:09 AM, February 03, 2017 EXAM: [...] in this document, created by the medical assembler for me, accurately reflects the services I personally performed and the decisions made by me. I have reviewed and approved this document for accuracy prior to leaving the patient care area. Simon Claros MD 8:09 AM, 02/03/17 documented in this encounter Nursing Notes Erasmo Wright, DENTAL PRACTICE MANAGER - 02/03/2017 7:30 AM CDT Chief Complaint Patient presents with ??? Pre-Op Exam lumpectomy, R breast Initial BP 134/74 (BP Location: Right arm, Patient Position: Chair, Cuff Size: Adult Large) Pulse 66 Temp 97.1 ??F (36.2 ??C) (Oral) Ht 5' 6 (1.676 m) Wt 142 lb (64.4 kg) SpO2 97% ? No BMI 22.92 kg/m2 Estimated body mass index is 22.92 kg/(m^2) as calculated from the following: Height as of this encounter: 5' 6 (1.676 m). Weight as of this encounter: 142 lb (64.4 kg). Medication Reconciliation: complete Shankar Wright CMA documented in this encounter Plan of Treatment Upcoming Encounters Date Type Specialty Care Team Description 10/26/2022 Lab Oncology Yris Perez MD [address] [address] (Wo rk) 11/03/2022 Oncology Visit Oncology Yris Perez MD [address] [phone] (Wo rk) documented as of this encounter Procedures Procedure Name Priority Date/Time Associated Diagnosis Comme nts BASIC METABOLIC Routine 02/03/2017 8:25 AM Preop general Resul ts for this PANEL CDT physical exam procedure are in the results section. CBC WITH PLATELETS Routine 02/03/2017 8:25 AM Preop general Re sults for this CDT physical exam procedure are in the results section. EKG 12-LEAD Routine 02/03/2017 8:19 AM Preop general Results for this COMPLETE W/READ - CDT physical exam procedure are in CLINICS the results section. documented in this encounter Results CBC with platelets (02/03/2017 8:25 AM CDT) athologist Signature WBC 6.7 4.0 - 11.0 [facility] 10e9/L [facility] RBC Count 4.62 3.8 - 5.2 [facility] 10e12/L [facility] Hemoglobin 14.1 11.7 - [facility] 15.7 g/dL [facility] Hematocrit 43.0 35.0 - [facility] 47.0 % [facility] MCV 93 78 - 100 [place] fl [facility] MCH 30.5 26.5 - [place] 33.0 pg [facility] MCHC 32.8 31.5 - [place] 36.5 g/dL [facility] RDW 14.3 10.0 - [place] 15.0 % [facility] Platelet Count 235 150 - 450 [place] 10e9/L [facility] Specimen Anatomical Collection Method Collection Time Receive d Time (Source) Location / / Volume Laterality Blood specimen 02/03/2017 8:25 AM 017 8:26 (specimen) CDT AM CDT Simon Claros MD LAB - BLOOD ORDERABLES Performing Organization Address City/State/ZIP Code Phon e Number [facility] [address] [place] [address] Basic metabolic panel (02/03/2017 8:25 AM CDT) athologist Signature Sodium 141 133 - 144 [place] mmol/L [facility] Potassium 4.1 3.4 - 5.3 [place] mmol/L [facility] Chloride 107 94 - 109 [place] mmol/L [facility] Carbon Dioxide 28 20 - 32 [place] mmol/L [facility] Anion Gap 6 3 - 14 [place] mmol/L [facility] Glucose 90 70 - 99 [place] mg/dL [facility] Urea Nitrogen 17 7 - 30 [place] mg/dL [facility] Creatinine 0.87 0.52 - [place] 1.04 mg/dL [facility] GFR Estimate 65 >60 [place] mL/min/1.[address] [facility] m[address] [facility] Comment: Non GFR Calc GFR Estimate If Black 78 >60 mL/min/1.7m2 [facility] Comment: GFR Calc Calcium 8.7 8.5 - 10.1 mg/dL [place] CLIN ICS [facility] Specimen Anatomical Collection Method Collection Time Receive d Time (Source) Location / / Volume Laterality Blood specimen 02/03/2017 8:25 AM 017 8:26 (specimen) CDT AM CDT Simon Claros MD LAB - BLOOD ORDERABLES Performing Organization Address City/State/ZIP Code Phon e Number [facility] [address] [place] [address] EKG 12-lead complete w/read - Clinics (02/03/2017 8:19 AM CDT) Narrative This result has an attachment that is no t available. Simon Claros MD ECG ORDERABLES documented in this encounter Visit Diagnoses Diagnosis Malignant neoplasm of right female breas t, unspecified site of breast - Primary Benign essential hypertension Essential hypertension, benign Chronic obstructive pulmonary disease, u nspecified COPD type (H) Preop general physical exam Other specified pre-operative examinatio n documented in this encounter Additional Health Concerns Infection Onset Date Last Indicated Resolved Time 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, 01/08/2017 9 06/08/17, 08/26/17 documented as of this encounter Care Teams Thread Cutter Tender Relationship Specialty Start Date End Date Simon Claros MD PCP - General Internal Medicine 09/22/12 08/20/21 Simon Claros MD PCP - Assigned PCP 06/18/16 01/17/19 [address] [place] [phone] Simon Claros MD Assigned PCP 06/18/16 03/01/21 [address] [place] [address] documented as of this encounter
--- OUTSIDE RECORDS SUMMARY | 2022-08-20 14:28 | XMS_ITS | Encounter Summary ---
:1945 Author Organization [place] Address [address] [place] [address] Care Team Providers Name Role Phone Simon Claros MD Primary Care Provider Simon Claros MD Unavailable Simon Claros MD Unavailable Reason for Visit Reason Onset Date Comments Clinic Care Coordination - Follow-up 02/05/2017 [facility] pre-procedure call Encounter Details Date Type Department Care Team Description 02/05/2017 Telephone [facility] Nichol Tamayo Cli [facility] Breast RN Coordinatio - [place] Follow-up (Breast [address] [place] [address] pr e-procedure [facility], [address] call) [place] [phone] Social History Tobacco Use Types Packs/Day Years Used Date Passive Smoke Exposure - Never Smoker Smokeless Tobacco: Never Used Alcohol Use Standard Drinks/Week Comments No 0 (1 standard drink = 0.6 oz pure alcoho l) Sex Assigned at Date Recorded Female 01/27/2022 12:36 PM CDT documented as of this encounter Miscellaneous Notes Telephone Encounter - Nichol Tamayo RN - 02/05/2017 2:57 PM CDT Phoned patient from the [facility] to review radioactive seed placement procedure scheduled on 02/08/17 for breast surgery scheduled with Dr Atkins. I explained the seed localizing procedure. Answered general questions about the sentinel node procedure, surgery and expected recovery information. Patient [facility] [address] at 930 AM on 02/08/17 documented in this encounter Plan of Treatment Upcoming Encounters Date Type Specialty Care Team Description 10/26/2022 Lab Oncology Yris Perez MD [address] [facility] [address] [place], [place] [phone] (Wo rk) 11/03/2022 Oncology Visit Oncology Yris Perez MD [address] [facility] [address] [place], [place] [phone] (Wo rk) documented as of this encounter Visit Diagnoses Not on filedocumented in this encounter Additional Health Concerns Infection Onset Date Last Indicated Resolved Time 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
--- OUTSIDE RECORDS SUMMARY | 2022-08-20 14:28 | XMS_ITS | Encounter Summary ---
:1945 Author Organization [place] Address [address] [facility] [place] [address] Care Team Providers Name Role Phone Simon Claros MD Primary Care Provider Simon Claros MD Unavailable Simon Claros MD Unavailable Reason for Visit Auth/Cert Specialty Diagnoses / Procedures Referred By Contact Refer red To Contact Surgery Diagnoses RIGHT BREAST CANCER Sh Periop Services Procedures LUMPECTOMY BREAST WITH SEED LOCALIZATION BIOPSY NODE SENTINEL [address] [facility] [address] [place] [address] Phone: Referral ID Status Reason Start Date Expiration Date Visits Requ ested Visits Authorized [id number] 1 1 Encounter Details Date Type Department Care Team Description 02/08/2017 Hospital Encounter [facility] Jordin Atkins Toro lignant neoplasm [place] Breast MD Carl[facility] of [facility] [address] of right female [address] [facility] [address] breast (H) [facility], [address] [place] [address] [place], [place] [phone] (Work) [phone] Social History Tobacco Use Types Packs/Day Years [...] by mouth 0 10/2017 daily LIPOSOMAL CURCUMIN Nancy-3 Fatty Acids Take 6 mLs by mouth 0 08/26/2017 (OMEGA ESSENTIALS BASIC) daily LIQD documented as of this encounter Plan of Treatment Upcoming Encounters Date Type Specialty Care Team Description 10/26/2022 Lab Oncology Yris Perez MD [address] [place] [phone] (Madeleine rk) 11/03/2022 Oncology Visit Oncology Yris Perez MD [address] [phone] (Madeleine rk) documented as of this encounter Procedures Procedure Name Priority Date/Time Associated Diagnosis Comme nts MA BREAST SPECIMEN Routine 02/08/2017 12:12 PM Malignant neopl asm Results for this RIGHT OR CDT of central portion procedure are in of right female the results breast (H) section. documented in this encounter Results MA Breast Specimen Right OR (02/08/2017 12:12 PM CDT) Anatomical Region Laterality Modality Breast Right Mammography Specimen (Source) Anatomical Location Collection Method / Collectio n Time Received Time / Laterality Volume Impressions 02/08/2017 12:49 PM CDT IMPRESSION: Successful placement of a radioactive seed for operative guidance. Specimen radiograph, as above. LAWSON BRODY Narrative 02/08/2017 12:49 PM CDT RIGHT [...] time of core bi opsy. Procedure Note Lawson Brody MD - 02/08/2017 RIGHT BREAST SEED [...] for operative guidance. Specimen radiograph, as above. LAWSON BRODY Jordin Atkins MD IMG MAMMOGRAPHY ORDERABLES documented in this encounter Visit Diagnoses Diagnosis Malignant neoplasm of central portion of right female breast (H) Malignant neoplasm of central portion of female breast documented in this encounter Additional Health Concerns Infection Onset Date Last Indicated Resolved Time 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, 01/08/2017 9 06/08/17, 08/26/17 documented as of this encounter Care Teams Credit Rating Inspector Relationship Specialty Start Date End Date Simon Claros MD PCP - General Internal Medicine 09/22/12 08/20/21 Simon Claros MD PCP - Assigned PCP 06/18/16 01/17/19 [address] [place] [place] [phone] Simon Claros MD Assigned PCP 06/18/16 03/01/21 [address] [place] [phone] documented as of this encounter
--- OUTSIDE RECORDS SUMMARY | 2022-08-20 14:28 | XMS_ITS | Encounter Summary ---
:1945 Author Organization [place] Address [address] [place] [address] Care Team Providers Name Role Phone Simon Claros MD Primary Care Provider Simon Claros MD Unavailable Simon Claros MD Unavailable Reason for Visit Auth/Cert Specialty Diagnoses / Procedures Referred By Contact Refer red To Contact Surgery Diagnoses RIGHT BREAST CANCER Sh Periop Services Procedures LUMPECTOMY BREAST WITH SEED LOCALIZATION BIOPSY NODE SENTINEL [address] [facility] [address] [place] [address] Phone: Referral ID Status Reason Start Date Expiration Date Visits Requ ested Visits Authorized [id number] 1 1 Encounter Details Date Type Department Care Team Description 02/08/2017 Hospital Encounter [facility] Jordin Atkins Toro lignant neoplasm [place] Breast MD Carlitos of [facility] [address] of right female [address] [facility] [address] breast (H) [facility], [address] [place] [address] [place], [place] [phone] (Work) [phone] Social History Tobacco Use Types Packs/Day Years [...] by mouth 0 10/2017 daily LIPOSOMAL CURCUMIN [place]-3 Fatty Acids Take 6 mLs by mouth 0 08/26/2017 (OMEGA ESSENTIALS BASIC) daily LIQD documented as of this encounter Progress Notes Pamella Cohen - 02/08/2017 9:59 AM CDT SBAR Seed Localization SITUATION: Patient to breast imaging center for imaging guided seed localizations before breast lumpectomy or excision biopsy with sentinel node injection. BACKGROUND: Breast imaging cancer, breast abnormality Ordered procedure completed: Yes Special needs identified: No ASSESSMENT: SBAR report called to patient care unit because of unexpected event in radiology: No Allergies and medication list reviewed prior to procedure. Yes Skin cleansed with ChloraPrep One-Step. Anesthesia: approximately 5ml of 1% Lidocaine injection subcutaneous before seed insertion administered by the radiologist. Gauze dressing over insertion site(s). Post procedure mammogram completed: Yes Patient tolerance:well tolerated RECOMMENDATIONS: Patient transferred to Same Day Surgery in stable condition via wheelchair with Breast Imaging Staff. Copy of note given to patient and instructions to hand this note to surgery staff. Please call [facility] [phone] if there are any questions. documented in this encounter Plan of Treatment Upcoming Encounters Date Type Specialty Care Team Description 10/26/2022 Lab Oncology Yris Perez MD [address] [phone] (Wo rk) 11/03/2022 Oncology Visit Oncology Yris Perez MD [address] [phone] (Wo rk) documented as of this encounter Procedures Procedure Name Priority Date/Time Associated Comments Diagnosis US BREAST RADIOACTIVE Routine 02/08/2017 10:00 Malignant neopl asm Results for this SEED PLACEMENT, 1ST AM CDT of central portion pr ocedure are in LESION RIGHT of right female the results breast (H) section. documented in this encounter Results US Breast Radioactive Seed Loc Right (02/08/2017 10:00 AM CDT) Anatomical Region Laterality Modality Breast Right Ultrasound Specimen (Source) Anatomical Location Collection Method [...] as above. LAWSON BRODY Jordin Atkins MD [facility] US ORDERABLES documented in this encounter Visit Diagnoses Diagnosis Malignant neoplasm of central portion of right female breast (H) Malignant neoplasm of central portion of female breast documented in this encounter Administered Medications Inactive Administered Medications - up to 3 most recent administrations Medication Order MAR Action Action Date Dose Rate Site lidocaine 1 % 5 mL Given 02/08/2017 9:58 AM CDT 5 mLs 5 mL, Subcutaneous, ONCE, On 02/08/17 at 0945, For 1 dose documented in this encounter Additional Health Concerns Infection Onset Date Last Indicated Resolved Time 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, 01/08/201708/29/ 9 06/08/17, 08/26/17 documented as of this encounter Care Teams Cue Worker Relationship Specialty Start Date End Date Simon Claros MD PCP - General Internal Medicine 09/22/12 08/20/21 Simon Claros MD PCP - Assigned PCP 06/18/16 01/17/19 [address] [place] [phone] Simon Claros MD Assigned PCP 06/18/16 03/01/21 [address] [place], [place] [phone] documented as of this encounter
--- OUTSIDE RECORDS SUMMARY | 2022-08-20 14:28 | XMS_ITS | Encounter Summary ---
:1945 Author Organization [place] Address [facility]ly [facility] [address] Care Team Providers Name Role Phone Simon Claros MD Primary Care Provider Simon Claros MD Unavailable Simon Claros MD Unavailable Reason for Visit Reason Onset Date Comments Path Results 01/27/2017 01/25/17 right breast biopsy Encounter Details Date Type Department Care Team Description 01/27/2017 Telephone [facility] Nichol Tamayo Pat h Results (01/25/17 [facility] Breast RN right breas t biopsy) [address], [address] [phone] Social History Tobacco Use Types Packs/Day Years Used Date Passive Smoke Exposure - Never Smoker Smokeless Tobacco: Never Used Alcohol Use Standard Drinks/Week Comments No 0 (1 standard drink = 0.6 oz pure alcoho l) Sex Assigned at Date Recorded Female 01/27/2022 12:36 PM CDT documented as of this encounter Miscellaneous Notes Telephone Encounter - Nichol Tamayo RN - 01/27/2017 9:52 AM CDT Patient received breast biopsy results from Dr Claros last evening- 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 With her on speaker phone I answered their questions about what we know- hormone receptor positive. 1cm size. She asked about doing 3D mammogram ( work up was 2D) and I told her breast surgeon would review imaging and decide if anything additional was needed- that this did show up on her routine mammogram. They will have Dr Claros do the surgeon referral, but may want radiation of other follow up treatments in [place]. I can assist them with that depending on what their future plans are. Will mail new diagnosis resource information. Gave them my number and encouraged them to call with questions. Nichol Tamayo terminal makeup operator [facility] [phone] documented in this encounter Plan of Treatment Upcoming Encounters Date Type Specialty Care Team Description 10/26/2022 Lab Oncology Yris Perez MD [address] [place] [phone] (Wo rk) 11/03/2022 Oncology Visit Oncology Yris Perez MD [address] [place] [phone] (Wo rk) documented as of this encounter Visit Diagnoses Not on filedocumented in this encounter Additional Health Concerns Infection Onset Date Last Indicated Resolved Time 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, 01/08/2017 9 06/08/17, 08/26/17 documented as of this encounter Care Teams Tracer Powder Blender Relationship Specialty Start Date End Date Simon Claros MD PCP - General Internal Medicine 09/22/12 08/20/21 Simon Claros MD PCP - Assigned PCP 06/18/16 01/17/19 [address] [place] [phone] Simon Claros MD Assigned PCP 06/18/16 03/01/21 [address] [place] [phone] (work) documented as of this encounter
--- OUTSIDE RECORDS SUMMARY | 2022-08-20 14:28 | XMS_ITS | Encounter Summary ---
:1945 Author Organization [place] Address [address] [facility] [place] [address] Care Team Providers Name Role Phone Simon Claros MD Primary Care Provider Simon Claros MD Unavailable Simon Claros MD Unavailable Reason for Visit Reason Comments Musculoskeletal Problem Encounter Details Date Type Department Care Team Description 01/25/2017 Office Visit [facility] Simon Claros, Strain of neck muscle, initial encounter (Primary Dx); Clinic Eduardo HINES Dysuria; [address], [address] Right hip pain; [address] [place] Benign essential hypertension; [place] [phone] [place] Chronic obstructive pulmonar y disease, unspecified COPD type (H) [phone] Social History Tobacco Use Types Packs/Day Years Used Date Passive Smoke Exposure - Never Smoker Smokeless Tobacco: Never Used Alcohol Use Standard Drinks/Week Comments No 0 (1 standard drink = 0.6 oz pure alcoho l) Sex Assigned at Date Recorded Female 01/27/2022 12:36 PM CDT documented as of this encounter Last Filed Vital Signs Vital Sign Reading Time Taken Comments Blood Pressure 106/60 01/25/2017 1:54 PM CDT Pulse 83 01/25/2017 1:54 PM CDT Temperature - - Respiratory Rate - - Oxygen Saturation 98% 01/25/2017 1:54 PM CDT Inhaled Oxygen Concentration - - Weight 64.9 kg (143 lb) 01/25/2017 1:54 PM CDT Height 167.6 cm (5' 6) 01/25/2017 1:54 PM CDT Body Mass Index 23.08 01/25/2017 1:54 PM CDT documented in this encounter Progress Notes Simon Claros MD - 01/25/2017 2:30 PM CDT SUBJECTIVE: Darshana Brooks is a 71 year old female who presents to clinic today for the following health issues: Patient presents to clinic for her neck pain. She states that she has been working on a project for her job and has developed stiffness and discomfort in her neck. She reports a tingling up and down the back of her neck, which leads to a hot feeling then a radiating pain across her shoulders. She takes one Aleve 3 times a day to help with the pain, and resting improves the symptoms. She denies any problems sleeping at night. Of note, patient had a UTI last week. She has completed a course of antibiotics. She also had a breast biopsy done today (01/25/2017). Neck Pain ?? Onset: last week ?? Description: Location: between shoulder blades Character: Sharp ?? Intensity: moderate, severe ?? Progression of Symptoms: worse ?? Accompanying Signs & Symptoms: Other symptoms: radiation of pain to the shoulders ?? History: Previous similar pain: no ?? Precipitating factors: Trauma or overuse: pt was sitting on floor cutting out material and pinning it with th head bent ?? Alleviating factors: Improved by: rest/inactivity ?? Therapies Tried and outcome: ice minor relief- aleve did not help Problem list and histories reviewed & adjusted, as indicated. Additional history: Current Outpatient Prescriptions Medication Sig Dispense Refill ??? loratadine (CLARITIN) 10 MG tablet Take 10 mg by mouth ??? Cholecalciferol (VITAMIN D3 PO) Take 2,000 Units by mouth daily ??? [place]ile-3 Fatty Acids (OMEGA ESSENTIALS BASIC) LIQD Take 6 mLs by mouth daily ??? NONFORMULARY Take 1 Tablespoonful by mouth daily ALL NATURAL GREENS ??? NONFORMULARY Take 29 mLs by mouth daily LIQUIDRIVE ANTIOXIDENT (1 ounce) ??? NONFORMULARY Take 5 mLs by mouth daily LIPOSOMAL GLUTATHIONE ??? NONFORMULARY Take 6 mLs by mouth daily LIPOSOMAL CURCUMIN ??? albuterol (PROAIR HFA/PROVENTIL HFA/VENTOLIN HFA) 108 (90 BASE) MCG/ACT Inhaler Inhale 2-4 puffsinto the lungs ??? albuterol (PROAIR HFA, PROVENTIL HFA, VENTOLIN HFA) 108 (90 BASE) MCG/ACT inhaler Inhale 2 puffsinto the lungs 2 times daily as needed Allergies Allergen Reactions ??? Other [No Clinical [...] behalf by Megan Cannon, a trained medical sales. The creation of this document is based the provider's statements to the medical sales. Meg Cannon 2:43 PM, January 25, 2017 OBJECTIVE: BP 106/60 Pulse 83 Ht 1.676 m (5' 6) Wt 64.9 kg (143 lb) SpO2 98% BMI 23.08 kg/m2 Body mass index is 23.08 kg/(m^2). Neck and paraspinous muscles of her thoracic spine were all tight, her neck range of motion was normal with minor crepitation, Neuro: deep tendon reflexes were intact, motor and sensory were normal to confrontation Diagnostic Test Results: Urinalysis - ASSESSMENT/PLAN: 1. Dysuria - *UA reflex to Microscopic and Culture ([facility] and [facility] (except [place] and [place]) 2. Right hip pain 3. Benign essential hypertension 4. Chronic obstructive pulmonary disease, unspecified COPD type (H) 5. Strain of neck muscle, initial encounter -Continue taking Ibuprofen twice daily -Discussed therapy exercises for her neck as well as not overusing neck muscles 6.Abnormal mammogram with breast biopsy earlier today Anticipating follow-up of biopsy Patient will follow up, if symptoms persist or worsen in a couple days, at that point a muscle relaxer will be discussed. The information in this document, created by the medical sales for me, accurately reflects the services I personally performed and the decisions made by me. I have reviewed and approved this document for accuracy prior to leaving the patient care area. Simon Claros MD 2:44 PM, 01/25/17 Simon Claros MD [facility] documented in this encounter Nursing Notes Fatuma Bliss CMA - 01/25/2017 2:30 PM CDT Chief Complaint Patient presents with ??? Musculoskeletal Problem Initial BP 106/60 Pulse 83 Ht 5' 6 (1.676 m) Wt 143 lb (64.9 kg) SpO2 98% BMI 23.08 kg/m2 Estimatedbody mass index is 23.08 kg/(m^2) as calculated from the following: Height as of this encounter: 5' 6 (1.676 m). Weight as of this encounter: 143 lb (64.9 kg). Medication Reconciliation: complete documented in this encounter Plan of Treatment Upcoming Encounters Date Type Specialty Care Team Description 10/26/2022 Lab Oncology Yris Perez MD [address] [phone] (Wo hitesh) 11/03/2022 Oncology Visit Oncology Yris Perez MD [address] [address] (Wo hitesh) documented as of this encounter Procedures Procedure Name Priority Date/Time Associated Comments Diagnosis URINE MICROSCOPIC Routine 01/25/2017 2:46 PM Strain of neck Re sults for this CDT muscle, initial procedure ar e in encounter the results section. UA MACROSCOPIC WITH Routine 01/25/2017 2:46 PM Dysuria Re sults for this REFLEX TO MICROSCOPIC CDT proced ure are in AND CULTURE the results section. documented in this encounter Results Urine Microscopic (01/25/2017 2:46 PM CDT) P athologist Signature WBC Urine O - 2 0 - 2 /HPF [facility] RBC Urine O - 2 0 - 2 /HPF [facility] Specimen Anatomical Collection Method Collection Time Receive d Time (Source) Location / / Volume Laterality 01/25/2017 2:46 PM 7 2:51 CDT PM CDT Simon Claros MD LAB - URINE ORDERABLES Performing Organization Address City/[facility]/ZIP Code Phon e Number [facility] [address] [place] [address] (ABNORMAL) *UA reflex to Microscopic and Culture ([facility] and [facility] (except [place] and [place]) (01/25/2017 2:46 PM CDT) [facility] gist Method Time Signature Color Urine Yellow [facility] Appearance Urine Clear [facility] Glucose Urine Negative NEG mg/dL [facility]3] [place] Bilirubin Urine Negative NEG [facility]3] [place] Ketones Urine Negative NEG mg/dL [facility] Specific [place] 1.020 1.003 - [place] Urine 1.035 [facility] Blood Urine Small (A) NEG [facility] pH Urine 6.0 5.0 - 7.0 [place] pH [facility] Protein Albumin Negative NEG mg/dL [place] Urine [facility] Urobilinogen 0.2 0.2 - 1.0 [place] Urine EU/dL [facility] Nitrite Urine Negative NEG [facility] Leukocyte Trace (A) NEG [place] Esterase Urine [facility] Source Midstream [place] Urine [facility] Specimen Anatomical Collection Method Collection Time Receive d Time (Source) Location / / Volume Laterality Urine specimen 01/25/2017 2:46 PM 017 2:51 (specimen) CDT PM CDT Simon Claros MD LAB - URINE ORDERABLES Performing Organization Address City/[facility]/ZIP Code Phon e Number [facility] [address] [place] [phone] documented in this encounter Visit Diagnoses Diagnosis Strain of neck muscle, initial encounter - Primary Dysuria Right hip pain Pain in joint, pelvic region and thigh Benign essential hypertension Essential hypertension, benign Chronic obstructive pulmonary disease, u nspecified COPD type (H) documented in this encounter Additional Health Concerns Infection Onset Date Last Indicated Resolved Time 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, 01/08/2017 9 06/08/17, 08/26/17 documented as of this encounter Care Teams Technical Communication Teacher Relationship Specialty Start Date End Date Simon Claros MD PCP - General Internal Medicine 09/22/12 08/20/21 Simon Claros MD PCP - Assigned PCP 06/18/16 01/17/19 [address] [place] [address] [place] [phone] Simon Claros MD Assigned PCP 06/18/16 03/01/[address] [place] [place] [phone] documented as of this encounter
--- OUTSIDE RECORDS SUMMARY | 2022-08-20 14:28 | XMS_ITS | Encounter Summary ---
:1945 Author Organization [place] Address [address] [place] [address] Care Team Providers Name Role Phone Simon Claros MD Primary Care Provider Simon Claros MD Unavailable Simon Claros MD Unavailable Reason for Visit Reason Onset Date Comments Patient Request 02/11/2017 Encounter Details Date Type Department Care Team Description 02/11/2017 Telephone [facility] Surgery Jordin Atkins, Patient Request Clinic [facility] [address] [place] [address] [place] [phone] Social History Tobacco Use Types Packs/Day Years Used Date Passive Smoke Exposure - Never Smoker Smokeless Tobacco: Never Used Alcohol Use Standard Drinks/Week Comments No 0 (1 standard drink = 0.6 oz pure alcoho l) Sex Assigned at Date Recorded Female 01/27/2022 12:36 PM CDT documented as of this encounter Miscellaneous Notes Telephone Encounter - Ashley Saenz - 02/11/2017 2:21 PM CDT Patient had questions about switching to Advil or Aleve for pain management rather that the [place] because it makes her light headed. Discussed this with her and answered her questions and provided recommendations to decrease using the [place] if possible. Patient verbalized understanding of this and agreed. Encouraged them to call back if they had further questions or concerns. Ashley Saenz AUDIO VISUAL MANAGER Telephone Encounter - Charmaine Levin - 02/11/2017 1:58 PM CDT Name of caller: Patient Reason for Call: questions Surgeon: Dr. Atkins Recent Surgery: Yes. If yes, when & what type: Right breast lumpectomy...02/08/17. Best phone number to reach pt at is: [phone] Ok to leave a message with medical info? Yes. Pharmacy preferred (if calling for a refill): na documented in this encounter Plan of Treatment Upcoming Encounters Date Type Specialty Care Team Description 10/26/2022 Lab Oncology Yris Perez MD [address] [place] [phone] (Wo rk) 11/03/2022 Oncology Visit Oncology Yris Perez MD [address] [address] (Wo rk) documented as of this encounter Visit Diagnoses Not on filedocumented in this encounter Additional Health Concerns Infection Onset Date Last Indicated Resolved Time 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, 01/08/2017 9 06/08/17, 08/26/17 documented as of this encounter Care Teams Rat Breeder Relationship Specialty Start Date End Date Simon Claros MD PCP - General Internal Medicine 09/22/12 08/20/21 Simon Claros MD PCP - Assigned PCP 06/18/16 01/17/19 [address] [place] [phone] Simon Claros MD Assigned PCP 06/18/16 03/01/21 [address] [facility] [address] [place], [place] [phone] documented as of this encounter
--- OUTSIDE RECORDS SUMMARY | 2022-08-20 14:28 | XMS_ITS | Encounter Summary ---
:1945 Author Organization [place] Address [address] [facility] [place] [address] Care Team Providers Name Role Phone Simon Claros MD Primary Care Provider Simon Claros MD Unavailable Simon Claros MD Unavailable Reason for Visit Auth/Cert Specialty Diagnoses / Procedures Referred By Contact Refer red To Contact Surgery Diagnoses RIGHT BREAST CANCER Sh Periop Services Procedures LUMPECTOMY BREAST WITH SEED LOCALIZATION BIOPSY NODE SENTINEL [address] [place] [address] Phone: Referral ID Status Reason Start Date Expiration Date Visits Requ ested Visits Authorized [id number] 1 1 Encounter Details Date Type Department Care Team Description 02/08/2017 Hospital Encounter [facility] Saritha Atkins Ac bryant post-operative [place] Phase II MD Carlitos pain (Primary Dx) [address] [place] [address] [address] [place] [id number] Social History Tobacco Use Types Packs/Day Years [...] your procedure, please contact Dr Atkins at [phone] HOME CARE FOLLOWING BREAST Lumpectomy DISCOMFORT You [...] by mouth 0 10/2017 daily LIPOSOMAL CURCUMIN [place]-3 Fatty Acids Take 6 mLs by mouth [...] Claros MD - 02/03/2017 7:32 AM CDT [place] [id number] [facility] [address] Dept: [phone] PRE-OP EVALUATION: Today's date: 02/03/2017 Darell Jackson (: 1945) presents for pre-operative evaluation assessment as requested by Dr. Atkins. She requires evaluation and anesthesia risk assessment prior to undergoing surgery/procedurefor treatment of R breast mass. Proposed procedure: lumpectomy Date of Surgery/ Procedure: TBD Time of Surgery/ Procedure: TBD Hospital/Surgical Facility: [facility] Primary Physician: Simon Claros Type of [...] Wayne Estevez MD; Location: [facility] OR ??? TILESETTER SURGERY hysterectomy Current Outpatient Prescriptions Medication Sig Dispense Refill ??? albuterol (PROAIR HFA/PROVENTIL HFA/VENTOLIN HFA) 108 (90 BASE) MCG/ACT Inhaler Inhale 2-4 puffsinto the lungs ??? loratadine (CLARITIN) 10 MG tablet Take 10 mg by mouth ??? Cholecalciferol (VITAMIN D3 PO) Take 2,000 Units by mouth daily ??? [place]-3 Fatty Acids (OMEGA ESSENTIALS BASIC) LIQD Take [...] his/her behalf by Kim Tian, a trained medical record librarian. The creation of this document is based the provider's statements to the medical record librarian. Scribnoy Tian 8:09 AM, February 03, 2017 [...] evaluation report is provided to requesting physician. [place] Preop Guidelines The information in this document, created by the medical record librarian for me, accurately reflects the services I personally performed and the decisions made by me. I have reviewed and approved this document for accuracy prior to leaving the patient care area. Simon Claros MD 8:09 AM, 02/03/17 documented in this encounter Nursing Notes Saritha Rizo RN - 02/08/2017 2:40 PM CDT PNDS met, po per I&O sheet. Pt dressed, up in recliner and transported to Phase 2. Pt and familyverbalize understanding of discharge instructions- denies questions- Up in W/C- transported to door for discharge to home documented in this encounter Miscellaneous Notes Brief Op Note - Fatuma Charles PA-C - 02/08/2017 12:47 PM CDT [facility] Brief Operative Note Pre-operative diagnosis: RIGHT BREAST [...] PREOPERATIVE MEDICATIONS: Ancef SURGEON: Saritha Atkins MD CHRISTMAS TREE GROWER: Fatuma Charles PA-C A resident assistant was necessary owing to challenging retraction, visualization, [...] Lab Oncology Yris Perez MD [address] [address] (Wo rk) 11/03/2022 Oncology Visit Oncology Yris Perez MD [address] [address] (Wo rk) documented as of this encounter [...] Component Value Ref Test Analysis Performed At [facility] gist Range Method Time Signature Copath Report Patient Name: DARELL JACKSON MR#: [id number] Specimen #: [id number] Collected: 02/08/2017 Received: 02/08/2017 Reported: 02/09/2017 14:22 Ordering Phy(s): SARITHA ATKINS Additional Phy(s): SIMON CLAROS For improved result formatting, select 'View Enhanced Report Format' under Linked Documents section. SPECIMEN(S): A: Breast mass, right B: Cool lymph node, right FINAL DIAGNOSIS: <INVASIVE CARCINOMA OF THE BREAST: Treated by lumpectomy and right axillary sentinel lymph node dissection Applies to: Lumpectomy plus 4 sentinel lymph nodes Specimen Procedure: See above Lymph Node Sampling: Cool lymph node sampling performed Specimen Laterality: Right breast Tumor Site: Invasive Carcinoma: 1:00 - 8 cm from nipple Tumor Histologic Type of Invasive Carcinoma: Invasive ductal carci noma Glandular (Acinar)/Tubular Differentiation: Score 3 Nuclear Pleomorphism: Score 2 Mitotic Count: Score 1 Minden Grade: Grade 2 Extent Tumor Size: Size [...] sentinel lymph nodes which are examined by [facility] permanent section levels. ??All sentinel lymph nodes [...] Results from Specimen: Case number [id number] In Situ Hybridization (FISH or CISH) for HER2 Results: Not a mplified Results from Specimen: Case number [id number] Pathologic Staging (pTNM) Primary Tumor (pT): ?pT1c: [...] to inferior. Cassette 1-superior margin-en face Cassettes 6-5-pcvadxaw section Cassettes 1-0-cbtaxxxg section Cassettes 3-6-paqftouv section Cassettes 4-0-smioakao section Cassettes 03-73-mjcbmgqy section Cassettes 05-44-aixomnfi section Cassettes 75-63-socdtnxq section Cassettes 27-83-kyuhjvap section Cassettes 16-41-plwgkznj section Cassettes 17-17-dmkddrdv section Cassettes 83-35-libobrad section Cassettes 18-61-buicwiif section Cassettes 26- inferior margin-en face The specimen is received in formalin with the patient's name and proper identification labeled right axillary sentinel node. ??The specimen consists of yellow fatty tissue fragments measuring 4.8 x 3. 5 x 1.4 cm. The specimen is dissected for lymph nodes. (Dictated by: Sreekanth Brownlee 02/08/2017 02:37 PM) MICROSCOPIC: Microscopic performed CPT Codes: A: 07671-HC0 B: 03483-UK0 TESTING LAB LOCATION: [address] ??[address] COLLECTION SITE: Client: [facility] Location: [facility] (S) Specimen (Source) [...] in this encounter Visit Diagnoses Diagnosis Acute post-operative pain - Primary Other acute postoperative pain documented in this encounter Administered Medications Inactive Administered Medications - up to 3 most recent administrations Medication Order MAR Action Action Date Dose Rate Site fentaNYL Citrate (PF) (SUBLIMAZE) Given 02/08/2017 1:29 PM CDT 5 0 mcg injection 25-50 mcg 25-50 mcg, Intravenous, EVERY 5 [...] Wed02/08/17 at 1030, Until Wed02/08/17 at 1643 ondansetron (ZOFRAN) injection 4 mg 4 mg, [...] step 2 (Prochlorperazine if ordered)., PACU/Phase II documented in this encounter Active and Recently Administered Medications Times are shown in CDT. Scheduled Medication Order 02/06/2017 02/07/2017 02/08/2017 ceFAZolin sodium-dextrose (ANCEF) infusion 2 g (COMPLETED) 1130 (Given - Provider: Maggie Pulliam APRN CRNA) Routine, 2 g, Intravenous, PRE-OP/PRE-TX OCEDURE, Starting Wed02/08/17 at 1023, For 1 dose, Give first dose within 1 hour PRIOR to incision. If patient weight is greater than or equal to 120 kg increase dose to 3 g., Indications: Perioperative Pharmacoprophylaxis, Pr e-procedure Continuous Medication Order 02/06/2017 02/07/2017 02/08/2017 lactated ringers infusion 1129 ( New Bag - Provider: Maggie Pulliam APRN CRNA)1246 (Anesthesia Volume Adjustment - Provider: Maggie Pulliam APRN [facility]) at 100 mL/hr, Intravenous, CONTINUOUS, C ontinue [...] 25-50 mcg 1308 (Given - Provider: Saritha Rizo, RN)1329 (Given - Provider: Saritha Rizo, ODESSA) 25-50 mcg, Intravenous, EVERY 5 MIN PRN, [...] Intravenous, EVERY 15 MIN PRN , Starting Wed02/08/17 at 1245, other, acute pain while in Phase II, MAX cumulative dose = 250 mcg. Use Fentanyl initially, as a short acting agent for acute pain control. If insufficient, or a longer a cting agent is needed, begin Morphine or Hydromorphone if ordered., Phase ll HYDROcodone-acetaminophen (NORCO) 5-325 MG per tablet 1-2 tablet (COMPLETED) 1347 (Given - Provider: Saritha Rizo, RN) 1-2 tablet, Oral, ONCE PRN, moderate to severe pain, Starting Wed02/08/17 at 1259, For 1 dose, One time prior to discharge. Maximum acetaminophen dose from all sources= 75 mg/kg/day not to exceed 4 grams, Post-procedure HYDROmorphone (PF) (DILAUDID) injection 0.3-0.5 mg 0.3-0.5 mg, Intravenous, EVERY 10 MIN TX N, Starting Wed02/08/17 at 1025, Until Wed02/08/17 [...] for take home use CONTINUOUS PRN, Starting 02/08/17 at 1025, Until 02/08/17 at 1643, May administer oral pain medications as ordered by surgeon for take home use. Discontinue IV pain medication prior to administration of oral pain medication., PACU/Phase II sodium chloride 0.9% (bottle) irrigation (CANCELED) 1230 (Given - Provider: Fatuma Charles PA-C) PRN, Starting 02/08/17 at 1230, Intra-procedure Linked Groups Order Group [...] documented as of this encounter Care Teams Outsole Skiver Relationship Specialty Start Date End Date Simon Claros MD PCP - General Internal Medicine 09/22/12 08/20/21 Simon Claros MD PCP - Assigned PCP 06/18/16 01/17/19 [address] [place] [address] [place] [address] Simon Claros MD Assigned PCP 06/18/16 03/01/21 [address] [place] [address] [place] [address] documented as of this encounter
--- OUTSIDE RECORDS SUMMARY | 2022-08-20 14:28 | XMS_ITS | Encounter Summary ---
:1945 Author Organization [place] Address [address] [place] [address] Care Team Providers Name Role Phone Simon Claros MD Primary Care Provider Simon Claros MD Unavailable Simon Claros MD Unavailable Reason for Visit Reason Onset Date Comments Nurse Advice Line 01/29/2017 seeking referral for breast cancer Encounter Details Date Type Department Care Team Description 01/29/2017 Telephone [facility] Simon Claros, Nurse Advice Line Clinic Whitley HINES (seeking referral for [address], [address] breast cancer) [address] [place] [address] [place] [address] [place] [phone] [address] Social History Tobacco Use Types Packs/Day Years Used Date Passive Smoke Exposure - Never Smoker Smokeless Tobacco: Never Used Alcohol Use Standard Drinks/Week Comments No 0 (1 standard drink = 0.6 oz pure alcoho l) Sex Assigned at Date Recorded Female 01/27/2022 12:36 PM CDT documented as of this encounter Miscellaneous Notes Telephone Encounter - Simon Claros MD - 01/29/2017 12:44 PM CDT Called patient earlier this morning with recommendations and appointment to see Dr. Atkins on Wednesday at 10 AM. His office will call her with the details and all of the important details regarding herbiopsy etc. Are available on [employer]. Telephone Encounter - Celso Macias RN - 01/29/2017 7:06 AM CDT Clinic Action Needed:please call her Reason for Call:has been diagnosed with breast cancer/ is awaiting a call from Dr Claros to providea referral for her Celso Macias RN [facility] [phone] Patient Recommendations/Teaching: Routed to: documented in this encounter Plan of Treatment Upcoming Encounters Date Type Specialty Care Team Description 10/26/2022 Lab Oncology Yris Perez MD [address] [place] [phone] (Wo rk) 11/03/2022 Oncology Visit Oncology Yris Perez MD [address] [phone] (Wo rk) documented as of this encounter Visit Diagnoses Not on filedocumented in this encounter Additional Health Concerns Infection Onset Date Last Indicated Resolved Time 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, 01/08/2017 9 06/08/17, 08/26/17 documented as of this encounter Care Teams District Manager Major Accounts Sales Relationship Specialty Start Date End Date Simon Claros MD PCP - General Internal Medicine 09/22/12 08/20/21 Simon Claros MD PCP - Assigned PCP 06/18/16 01/17/19 [address] [place] [address] [place] [address] Simon Claros MD Assigned PCP 06/18/16 03/01/21 [address] [place] [address] [place] [phone] documented as of this encounter
--- OUTSIDE RECORDS SUMMARY | 2022-08-20 14:28 | XMS_ITS | Encounter Summary ---
:1945 Author Organization [place] Address [address] [facility] [place] [address] Care Team Providers Name Role Phone Simon Claros MD Primary Care Provider Simon Claros MD Unavailable Simon Claros MD Unavailable Reason for Visit Reason Comments Surgical Followup PO SEED LOCALIZED LUMPECTOMY WITH SENTINEL LYMPH NODE BIOPSY on 02/08/17 Encounter Details Date Type Department Care Team Description 02/23/2017 Office Visit [facility] Rallst[place] Mainoy Jordin Surgery follow-up Surgery Clinic Eduardo Urbina MD examination (Primary [address] ) [address] [place] [address] [place] [address] Social History Tobacco Use Types Packs/Day Years Used Date Passive Smoke Exposure - Never Smoker Smokeless Tobacco: Never Used Alcohol Use Standard Drinks/Week Comments No 0 (1 standard drink = 0.6 oz pure alcoho l) Sex Assigned at Date Recorded Female 01/27/2022 12:36 PM CDT documented as of this encounter Patient Instructions Patient InstructionsRivka Daley - 02/23/2017 10:15 AM CDT You are scheduled with Dr. Sina Mai at [facility] on 03/01/17 at 9:30am [facility] Radiation Therapy will contact you directly for an appointment documented in this encounter Progress Notes Jordin Atkins MD - 02/23/2017 10:15 AM CDT Surgery Postop Note Darshana Brooks presents today for surgical followup. she is doing well following right lumpectomy with SLN biopsy. Incisions look fine with no signs of wound infection. Final path revealed a 1.2 cm invasive ductal Ca with four negative nodes. Margins were negative. I expect her to make a complete recovery. I have arranged for oncology and radiation oncology follow-up. Thank you for the opportunity to help in her care. Angelo Atkins M.D. [facility] [phone] Please route or send letter to: Primary Care Provider (PCP) and Referring Provider documented in this encounter Plan of Treatment Upcoming Encounters Date Type Specialty Care Team Description 10/26/2022 Lab Oncology Yris Perez MD [address] [place] [phone] (Wo rk) 11/03/2022 Oncology Visit Oncology Yris Perez MD [address] [place] [phone] (Wo rk) documented as of this encounter Visit Diagnoses Diagnosis Surgery follow-up examination - Primary Follow-up examination, following unspeci fied surgery documented in this encounter Additional Health Concerns Infection Onset Date Last Indicated Resolved Time 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, 01/08/2017 9 06/08/17, 08/26/17 documented as of this encounter Care Teams [employer] Relationship Specialty Start Date End Date Simon Claros MD PCP - General Internal Medicine 09/22/12 08/20/21 Simon Claros MD PCP - Assigned PCP 06/18/16 01/17/19 [address] [place] [address] [place] [address] Simon Claros MD Assigned PCP 06/18/16 03/01/21 [address] [place], [place] [address] documented as of this encounter
--- OUTSIDE RECORDS SUMMARY | 2022-08-20 14:28 | XMS_ITS | Encounter Summary ---
:1945 Author Organization [place] Address [address] [facility] [place] [place] [address] Care Team Providers Name Role Phone Simon Claros MD Primary Care Provider Simon Claros MD Unavailable Simon Claros MD Unavailable Reason for Visit Auth/Cert Specialty Diagnoses / Procedures Referred By Contact Refer red To Contact Surgery Diagnoses RIGHT BREAST CANCER Sh Periop Services Procedures LUMPECTOMY BREAST WITH SEED LOCALIZATION BIOPSY NODE SENTINEL [address] [facility] [address] [place] [address] Phone: Referral ID Status Reason Start Date Expiration Date Visits Requ ested Visits Authorized [id number] 1 1 Encounter Details Date Type Department Care Team Description 02/08/2017 Hospital Encounter [facility] Jordin Atkins Tor[place] lignant neoplasm [place] Breast MD [facility] of [facility] [address] of right female [address] [facility] [address] breast (H) [facility], [address] [place] [address] [place], [place] [phone] [address] (Work) [phone] Social History Tobacco Use Types Packs/Day Years [...] by mouth 0 10/2017 daily LIPOSOMAL CURCUMIN [place]-3 Fatty Acids Take 6 mLs by mouth 0 08/26/2017 (OMEGA ESSENTIALS BASIC) daily LIQD documented as of this encounter Plan of Treatment Upcoming Encounters Date Type Specialty Care Team Description 10/26/2022 Lab Oncology Yris Perez MD [address] [place] [phone] (Madeleine rk) 11/03/2022 Oncology Visit Oncology Yris Perez MD [address] [phone] (Madeleine rk) documented as of this encounter Procedures Procedure Name Priority Date/Time Associated Diagnosis Comme nts MA POST PROCEDURE Routine 02/08/2017 10:17 AM Malignant neopla sm Results for this RIGHT CDT of central portion procedure are in of right female the results breast (H) section. documented in this encounter Results MA Post Procedure Right (02/08/2017 10:17 AM CDT) Anatomical Region Laterality Modality Breast Right Mammography Specimen (Source) Anatomical Location Collection Method / Collectio n Time Received Time / Laterality Volume Impressions 02/08/2017 12:49 PM CDT IMPRESSION: Successful placement of a radioactive seed for operative guidance. Specimen radiograph, as above. LEX RONN Narrative 02/08/2017 12:49 PM CDT RIGHT BREAST [...] documented as of this encounter Care Teams Python Engineer Relationship Specialty Start Date End Date Simon Claros MD PCP - General Internal Medicine 09/22/12 08/20/21 Simon Claros MD PCP - Assigned PCP 06/18/16 01/17/19 [address] [place] [address] [place] [address] Simon Claros MD Assigned PCP 06/18/16 03/01/21 [address] [place] [address] [place] [phone] documented as of this encounter
--- OUTSIDE RECORDS SUMMARY | 2022-08-20 14:28 | XMS_ITS | Encounter Summary ---
:1945 Author Organization [place] Address [address] [facility] [address] Care Team Providers Name Role Phone Simon Claros MD Primary Care Provider Simon Claros MD Unavailable Simon Claros MD Unavailable Reason for Visit (Routine) - Closed Specialty Diagnoses / Procedures Referred By Contact Refer red To Contact Radiology / Radiology. Procedures Sh Breast Imaging MA POST PROCEDURE RIGHT [address] [facility], [address] [place] [address] Phone: Referral ID Status Reason Start Date Expiration Date Visits Requ ested Visits Authorized [id number] Closed 01/25/2017 01/25/2018 1 1 Encounter Details Date Type Department Care Team Description 01/25/2017 [facility] Simon Claros Microcalc ifications of the Encounter Rocco Sr MD breast Center [address], [address] [place] [phone] Social History Tobacco Use [...] by mouth 0 10/2017 daily LIPOSOMAL CURCUMIN [place]-3 Fatty Acids Take 6 mLs by mouth 0 08/26/2017 (OMEGA ESSENTIALS BASIC) daily LIQD documented as of this encounter Plan of Treatment Upcoming Encounters Date Type Specialty Care Team Description 10/26/2022 Lab Oncology Yris Perez MD [address] [address] (Madeleine rk) 11/03/2022 Oncology Visit Oncology Yris Perez MD [address] [phone] (Madeleine rk) documented as of this encounter Procedures Procedure Name Priority Date/Time Associated Diagnosis Comme nts MA POST PROCEDURE Routine 01/25/2017 11:53 Microcalcifications of the Results for this RIGHT AM CDT breast procedure are i n the results section. documented in this encounter Results MA Post Procedure Right (01/25/2017 11:53 AM CDT) Anatomical Region Laterality Modality Breast Right Mammography Specimen (Source) Anatomical Location Collection Method / Collectio n Time Received Time / Laterality Volume Addenda Addendum by Niranjan Escobedo MD on 01/27/2017 10:49 AM CDT DARELL BROOKS [id number], [id number] FINAL DIAGNOSIS: Invasive mammary carcin judi with [...] breast Mammographic microcalcification documented in this encounter Additional Health Concerns Infection Onset Date Last Indicated Resolved Time 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, 01/08/2017 9 06/08/17, 08/26/17 documented as of this encounter Care Teams Assistant Professor Of Philosophy Relationship Specialty Start Date End Date Simon Claros MD PCP - General Internal Medicine 09/22/12 08/20/21 Simon Claros MD PCP - Assigned PCP 06/18/16 01/17/19 [address] [place] [address] [place] [address] Simon Claros MD Assigned PCP 06/18/16 03/01/21 [address] [place] [address] [place] [address] documented as of this encounter
--- OUTSIDE RECORDS SUMMARY | 2022-08-20 14:28 | XMS_ITS | Encounter Summary ---
:1945 Author Organization [place] Address [address] [facility] [place] [address] Care Team Providers Name Role Phone Simon Claros MD Primary Care Provider Simon Claros MD Unavailable Simon Claros MD Unavailable Reason for Visit (Routine) - Closed Specialty Diagnoses / Procedures Referred By Contact Refer red To Contact Radiology / Radiology. Diagnoses epic order, sb Rvika [phone] Sh Nuclear Medicine Procedures NM BONE SCAN WHOLE BODY [address] [place] [address] Phone: Referral ID Status Reason Start Date Expiration Date Visits Requ ested Visits Authorized [id number] Closed 02/03/2017 02/03/2018 1 1 Encounter Details Date Type Department Care Team Description 02/05/2017 Hospital Encounter [facility] Wilbert Jordin [facility] Imaging MD [place] [address] [place] [address] [address] [place] [phone] (Wo rk) Social History Tobacco Use Types [...] by mouth 0 10/2017 daily LIPOSOMAL CURCUMIN [place]-3 Fatty Acids Take 6 mLs by mouth 0 08/26/2017 (OMEGA ESSENTIALS BASIC) daily LIQD documented as of this encounter Plan of Treatment Upcoming Encounters Date Type Specialty Care Team Description 10/26/2022 Lab Oncology Yris Perez MD [address] [place] [phone] (Madeleine rk) 11/03/2022 Oncology Visit Oncology Yris Perez MD [address] [phone] (Madeleine proctor) documented as of this encounter Procedures Procedure Name Priority Date/Time Associated Diagnosis Comme nts NM BONE SCAN WHOLE Routine 02/05/2017 2:00 PM Malignant neopla sm Results for this BODY CDT of central portion procedure are in of right female the results breast (H) section. Neck pain Hip pain, right documented in this encounter Results NM Bone Scan Whole Body (02/05/2017 2:00 PM CDT) Anatomical Region Laterality Modality Whole Body, SUBRAD CT BODY, P [facility] Nuclear Medicine Specimen (Source) Anatomical Location [...] metastasis. KATINA RICHARDSON MD Jordin Atkins MD IMG NM ORDERABLES documented in this encounter Visit Diagnoses Not on filedocumented in this encounter Additional Health Concerns Infection Onset Date Last Indicated Resolved Time 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, 01/08/2017 9 06/08/17, 08/26/17 documented as of this encounter Care Teams Mobile Lounge Driver Relationship Specialty Start Date End Date Simon Claros MD PCP - General Internal Medicine 09/22/12 08/20/21 Simon Claros MD PCP - Assigned PCP 06/18/16 01/17/19 [address] [place] [address] [place] [address] Simon Claros MD Assigned PCP 06/18/16 03/01/21 [address] [place] [address] [place] [address] documented as of this encounter
--- OUTSIDE RECORDS SUMMARY | 2022-08-20 14:28 | XMS_ITS | Encounter Summary ---
:1945 Author Organization [place] Address [address] [place] [address] Care Team Providers Name Role Phone Simon Claros MD Primary Care Provider Simon Claros MD Unavailable Simon Claros MD Unavailable Reason for Visit (Routine) - Closed Specialty Diagnoses / Procedures Referred By Contact Refer red To Contact Radiology / Radiology. Diagnoses epic order, sb Rivka [phone] Sh Nuclear Medicine Procedures [place] INJ [address] [place] [address] Phone: Referral ID Status Reason Start Date Expiration Date Visits Requ ested Visits Authorized [id number] Closed 02/03/2017 02/03/2018 1 1 Encounter Details Date Type Department Care Team Description 02/05/[address] [facility] lign[facility] ne[facility] of central portion of right female breast (H[facility] Neck pain; [address] Hip pain, right [place] [address] [phone] [place] [address] Social History Tobacco Use Types Packs/Day Years [...] by mouth 0 10/2017 daily LIPOSOMAL CURCUMIN [place]-3 Fatty Acids Take 6 mLs by mouth 0 08/26/2017 (OMEGA ESSENTIALS BASIC) daily LIQD documented as of this encounter Progress Notes Jordin Atkins MD - 02/05/2017 3:09 PM CDT Could you please notify this patient of his/her results? Thanks documented in this encounter Plan of Treatment Upcoming Encounters Date Type Specialty Care Team Description 10/26/2022 Lab Oncology Yris Perez MD [address] [facility] [address] [place] [address] (Wo rk) 11/03/2022 Oncology Visit Oncology Yris Perez MD [address] [facility] [address] [place], [place] [phone] (Wo rk) documented as of this encounter [...] Laterality Modality Whole Body, SUBRAD CT BODY, UMP NUC MED Nuclear Medicine Specimen (Source) Anatomical [...] region and thigh documented in this encounter Administered Medications Inactive Administered Medications - up to 3 most recent administrations Medication Order MAR Action Action Date Dose Rate Site technetium Tc 99m medronate Given 02/05/2017 10:42 AM CDT 26 mCi (Tc99m MDP) radioisotope injection 25 mCi 25 mCi (25 millicurie), Intravenous, ONCE, On Wed02/05/17 at 1045, For 1 dose, Radioisotope, supplied by and administered by Nuclear Medicine. *HW* documented in this encounter Additional Health Concerns Infection Onset Date Last Indicated Resolved Time 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, 01/08/2017 9 06/08/17, 08/26/17 documented as of this encounter Care Teams Egg Producer Relationship Specialty Start Date End Date Simon Claros MD PCP - General Internal Medicine 09/22/12 08/20/21 Simon Claros MD PCP - Assigned PCP 06/18/16 01/17/[address] [place] [address] [place] [address] Simon Claros MD Assigned PCP 06/18/16 03/01/21 [address] [place] [address] [place] [address] documented as of this encounter
--- OUTSIDE RECORDS SUMMARY | 2022-08-20 14:28 | XMS_ITS | Encounter Summary ---
:1945 Author Organization [place] Address [address] [place] [address] Care Team Providers Name Role Phone Simon Claros MD Primary Care Provider Simon Claros MD Unavailable Simon Claros MD Unavailable Reason for Visit Reason Onset Date Comments Clinic Care Coordination - Follow-up 02/11/2017 Harshad concepcion Navigator check in call Encounter Details Date Type Department Care Team Description 02/11/2017 Telephone [facility] Nichol Tamayo Cli [facility] Breast RN Coordinatio - [place] Follow-up (Nurse [address] [place] [place] [address] Navigator check in [facility], [address] call) [place] [phone] Social History Tobacco Use Types Packs/Day Years Used Date Passive Smoke Exposure - Never Smoker Smokeless Tobacco: Never Used Alcohol Use Standard Drinks/Week Comments No 0 (1 standard drink = 0.6 oz pure alcoho l) Sex Assigned at Date Recorded Female 01/27/2022 12:36 PM CDT documented as of this encounter Miscellaneous Notes Telephone Encounter - Nichol Tamayo RN - 02/11/2017 2:35 PM CDT Nurse Navigator check in call, doing well post op breast surgery on 02/08, switching to tylenol or Aleve and healing well. A little more tired today, took nap. Told her I did follow up with [facility] Imaging MRI department regarding her rib pain with positioning and they are looking into options to minimize that for others. She was appreciative of the follow up. No further needs identified. documented in this encounter Plan of Treatment Upcoming Encounters Date Type Specialty Care Team Description 10/26/2022 Lab Oncology Yris Perez MD [address] [facility] [address] [place], [place] [phone] (Wo rk) 11/03/2022 Oncology Visit Oncology Yris Perez MD [address] [facility] [address] [place], [place] [address] (Wo rk) documented as of this encounter Visit Diagnoses Not on filedocumented in this encounter Additional Health Concerns Infection Onset Date Last Indicated Resolved Time 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, 01/08/2017 9 06/08/17, 08/26/17 documented as of this encounter Care Teams Water Pump Installer Relationship Specialty Start Date End Date Simon Claros MD PCP - General Internal Medicine 09/22/12 08/20/21 Simon Claros MD PCP - Assigned PCP 06/18/16 01/17/19 [address] [place] [address] [place] [address] Simon Claros MD Assigned PCP 06/18/16 03/01/21 [address] [place] [address] [place] [address] documented as of this encounter
--- OUTSIDE RECORDS SUMMARY | 2022-08-20 14:29 | XMS_ITS | Encounter Summary ---
:1945 Author Organization [place] Address [address] [facility] [place] [address] Care Team Providers Name Role Phone Simon Claros MD Primary Care Provider Simon Claros MD Unavailable Simon Claros MD Unavailable Encounter Details Date Type Department Care Team Description 11/05/2016 [facility] [place] Dysuria [facility] [address] [place], [place] [phone] Social History Tobacco Use Types Packs/Day Years Used Date Passive Smoke Exposure - Never Smoker Smokeless Tobacco: Never Used Alcohol Use Standard Drinks/Week Comments No 0 (1 standard drink = 0.6 oz pure alcoho l) Sex Assigned at Date Recorded Female 01/27/2022 12:36 PM CDT documented as of this encounter Progress Notes Shannan Lai APRN CNP - 11/09/2016 4:44 PM CLAMP JIG ASSEMBLER Quick Note: Spoke with pt. She will stop abx. She is feeling better P JIG ASSEMBLER documented in this encounter Plan of Treatment Upcoming Encounters Date Type Specialty Care Team Description 10/26/2022 Lab Oncology Yris Perez MD [address] [facility] [address] [place], [place] [phone] (Wo rk) 11/03/2022 Oncology Visit Oncology Yris Perez MD [address] [facility] [address] [place] [address] (Wo rk) documented as of this encounter Procedures Procedure Name Priority Date/Time Associated Comments Diagnosis URINE MICROSCOPIC Routine 11/05/2016 2:27 PM Dysuria Resu lts for this [employer]AMP JIG ASSEMBLER procedure are i n the results section. UA MACROSCOPIC WITH Routine 11/05/2016 2:27 PM Dysuria Re sults for this REFLEX TO MICROSCOPIC CLAMP JIG ASSEMBLER proced ure are in AND CULTURE the results section. URINE CULTURE Routine 11/05/2016 2:27 PM Dysuria Results for this CLAMP JIG ASSEMBLER procedure are i n the results section. documented in this encounter Results (ABNORMAL) Urine Microscopic (11/05/2016 2:27 PM CLAMP JIG ASSEMBLER) Analysis Performed At Patho logist Time Signature WBC Urine 50-100 (A) 0 - 2 /HPF [facility] RBC Urine 10-25 (A) 0 - 2 /HPF [facility] Bacteria Urine Few (A) NEG /HPF [facility] Specimen Anatomical Collection Method Collection Time Receive d Time (Source) Location / / Volume Laterality 11/05/2016 2:27 PM 6 2:28 [employer] J[employer]SEMBLER PM [employer]SEMBLER Shannan Phillips APRN [employer] [facility] - URINE ORDERABLES Performing Organization Address City/[facility]/ZIP Code Phon e Number [facility] [address] [place], [place] [address] Urine Culture Aerobic Bacterial (11/05/2016 2:27 PM CLAMP JIG ASSEMBLER) Component Value Ref Test Analysis Performed At Patholo gist Range Method Time Signature Specimen Midstream Urine [facility] Culture Micro 10,000 to 50,000 colonies/mL mixed urogenital robert Susceptibility testing not INFECTIOUS routinely done [facility] Micro Report FINAL 11/07/2016 INFECTIOUS Status DISE[facility] DI[facility]NOSTIC LABORATORY Specimen Anatomical Collection Method Collection Time Receive d Time (Source) Location / / Volume Laterality Urine specimen 11/05/2016 2:27 PM 016 2:47 (specimen) CLAMP JIG ASSEMBLER PM [employer] Shannan Phillips APRN [employer] [facility] - MICRO GENERAL ORDE RABLES Performing Organization Address City/[facility]/ZIP Code Phon e Number INFECTIOUS DISEASES [address] [place] [address] DIAGNOSTIC LABORATORY, [facility]3] [address] [place] [address] INFECTIOUS DISEASE [address] [place], [place] [id number] [place] [address] DIAGNOSTIC LABORATORY (ABNORMAL) *UA reflex to Microscopic and Culture ([facility] (except [place] and [place]) (11/05/2016 2:27 PM CLAMP JIG ASSEMBLER) [facility] gist Method Time Signature Color Urine Yellow [facility] Appearance Urine Clear [facility] Glucose Urine Negative NEG mg/dL [facility] Bilirubin Urine Negative NEG [facility] Ketones Urine Negative NEG mg/dL [facility] Specific [place] 1.020 1.003 - [place] Urine 1.035 [facility] Blood Urine Moderate (A) NEG [facility] pH Urine 5.5 5.0 - 7.0 [place] pH [facility] Protein Albumin 30 (A) NEG mg/dL [place] Urine [facility] Urobilinogen 0.2 0.2 - 1.0 [place] Urine EU/dL [facility] Nitrite Urine Negative NEG [facility] Leukocyte Large (A) NEG [place] Esterase Urine [facility] Source Midstream [place] Urine [facility] Specimen Anatomical Collection Method Collection Time Receive d Time (Source) Location / / Volume Laterality Urine specimen 11/05/2016 2:27 PM 016 2:28 (specimen) CLAMP JIG ASSEMBLER PM CL[employer] JIG ASSEMBLER Paulettebailee Simon Phillips APRN [employer] [facility] - URINE ORDERABLES Performing Organization Address City/State/ZIP Code Phon e Number [facility] [address] [place] [address] documented in this encounter Visit Diagnoses Diagnosis Dysuria documented in this encounter Care Teams Licensed Social Worker Relationship Specialty Start Date End Date Simon Claros MD PCP - General Internal Medicine 09/22/12 08/20/21 Simon Claros MD PCP - Assigned PCP 06/18/16 01/17/[address] [place] [address] [place] [phone] Simon Claros MD Assigned PCP 06/18/16 03/01/[address] [facility] [address] [place], [place] [address] documented as of this encounter
--- OUTSIDE RECORDS SUMMARY | 2022-08-20 14:29 | XMS_ITS | Encounter Summary ---
:1945 Author Organization [place] Address [address] [facility] [place] [address] Care Team Providers Name Role Phone Simon Claros MD Primary Care Provider Simon Claros MD Unavailable Simon Claros MD Unavailable Reason for Referral JULIAN Physical Therapy - Closed Specialty Diagnoses / Procedures Referred By Contact Refer red To Contact Diagnoses Lumbar radiculopathy Jessi Reina PA-C [facility] [address] [facility] [place] [facility] [address] [facility] [place] [address] [facility] ADMIN OFFICE [place] [phone] Phone: [phone] Referral ID Status Reason Start Date Expiration Date Visits Requ ested Visits Authorized [id number] Closed 01/13/2017 01/13/2018 1 1 ORK COORDINATOR Encounter Details Date Type Department Care Team Description 01/13/2017 Orders Only [facility] Jessi Reina Lumba r radiculopathy Clinic [place] HARVEY (Primary Dx) [address] [facility] [address] [facility]IT[facility] [address] [place] [address] [place] [address] [place] [id number] Social History Tobacco Use Types Packs/Day Years [...] 10/26/2022 Lab Oncology Yris Perez MD [address] [address] (Wo rk) 11/03/2022 Oncology Visit Oncology Yris Perez MD [address] [address] (Wo rk) Scheduled Referrals Name Type Priority Associated Diagnoses Order S chedule JULIAN PT, HAND, AND Referral Routine Lumbar radiculopathy Or dered: 01/13/2017 CHIROPRACTIC REFERRAL documented as of this encounter Visit Diagnoses Diagnosis Lumbar radiculopathy - Primary Thoracic or lumbosacral neuritis or radi culitis, unspecified documented in this encounter Additional Health Concerns Infection Onset Date Last Indicated Resolved Time 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, 01/08/2017 9 06/08/17, 08/26/17 documented as of this encounter Care Teams Rn Transitional Care Relationship Specialty Start Date End Date Simon Claros MD PCP - General Internal Medicine 09/22/12 08/20/21 Simon Claros MD PCP - Assigned PCP 06/18/16 01/17/19 [address] [place] [address] [place] [address] Simon Claros MD Assigned PCP 06/18/16 03/01/21 [address] [place] [address] [place] [address] documented as of this encounter
--- OUTSIDE RECORDS SUMMARY | 2022-08-20 14:29 | XMS_ITS | Encounter Summary ---
:1945 Author Organization [facility] Address [address] [facility] [place] [address] Care Team Providers Name Role Phone Simon Claros MD Primary Care Provider Reason for Visit Reason Comments UTI Encounter Details Date Type Department Care Team Description 06/10/2016 Office Visit [facility] [place], Dysuria (P rimary Dx); [facility] Janelle Diams Bladder infection; [place] [address] [facility] [address] Nonspecific [place] [address] [facility] [address] [place], [place] [phone] (Work) [phone] Social History Tobacco Use Types Packs/Day Years Used Date Passive Smoke Exposure - Never Smoker Alcohol Use Standard Drinks/Week Comments No 0 (1 standard drink = 0.6 oz pure alcoho l) Sex Assigned at Date Recorded Female 01/27/2022 12:36 PM CDT documented as of this encounter Last Filed Vital Signs Vital Sign Reading Time Taken Comments Blood Pressure 128/71 06/10/2016 6:07 PM CDT Pulse 82 06/10/2016 6:07 PM CDT Temperature 37.2 ??C (98.9 ??F) 06/10/2016 6:07 PM CDT Respiratory Rate 12 06/10/2016 6:07 PM CDT Oxygen Saturation 99% 06/10/2016 6:07 PM CDT Inhaled Oxygen Concentration - - Weight 67.1 kg (148 lb) 06/10/2016 6:07 PM CDT Height - - Body Mass Index 23.89 03/10/2016 9:00 AM CDT documented in this encounter Patient Instructions Patient InstructionsYves Dawkins MD - 06/10/2016 6:22 PM CDT Images from the original note were not included. * BLADDER INFECTION,Female (Adult) A bladder infection (cystitis or UTI) usually causes a constant urge to urinate and a burning when passing urine. Urine may be cloudy, smelly or dark. There may be pain in the lower abdomen. A bladder infection occurs when bacteria from the vaginal area enter the bladder opening (urethra). This can occur from sexual intercourse, wearing tight clothing, dehydration and other factors. HOME CARE: 1. Drink lots of fluids (at least 6-8 glasses a day, unless you must restrict fluids for other medical reasons). This will force the medicine into your urinary system and flush the bacteria out of yourbody. Cranberry juice has been shown to help clear out the bacteria. 2. Avoid sexual intercourse until your symptoms are gone. 3. A bladder infection is treated with antibiotics. You may also be given Pyridium (generic = phenazopyridine) to reduce the burning sensation. This medicine will cause your urine to become a bright orange color. The orange urine may stain clothing. You may wear a pad or panty-liner to protect clothing. PREVENTING FUTURE INFECTIONS: 1. Always wipe from front to back after a bowel movement. 2. Keep the genital area clean and dry. 3. Drink plenty of fluids each day to avoid dehydration. 4. Urinate right after intercourse to flush out the bladder. 5. Wear cotton underwear and cotton-lined panty hose; avoid tight-fitting pants. 6. If you are on control pills and are having frequent bladder infections, discuss with your doctor. FOLLOW UP: Return to this facility or see your doctor if ALL symptoms are not gone after three days of treatment. GET PROMPT MEDICAL ATTENTION if any of the following occur: ?? Fever over 101??F (38.3??C) ?? No improvement by the third day of treatment ?? Increasing back or abdominal pain ?? Repeated vomiting; unable to keep medicine down ?? Weakness, dizziness or fainting ?? Vaginal discharge ?? Pain, redness or swelling in the labia (outer vaginal area) ?? [id number] [employer], [address] [place] [address]. All rights reserved. This information is not intended as a substitute for professional medical care. Always follow your healthcare professional's instructions. documented in this encounter Progress Notes Yves Dawkins MD - 06/10/2016 5:52 PM CDT Some of this note was populated by a medical research scientist. SUBJECTIVE: Darshana Brooks is a 70 year old female who presents to clinic today for the following health issues: URINARY TRACT SYMPTOMS ?? Onset: Wednesday ?? Description: Painful urination (Dysuria): YES Blood in urine (Hematuria): no Delay in urine (Hesitency): no ?? Intensity: moderate ?? Progression of Symptoms: worsening ?? Accompanying Signs & Symptoms: Fever/chills: no Flank pain no Nausea and vomiting: no Any vaginal symptoms: none and vaginal odor Abdominal/Pelvic Pain: no ?? History: History of frequent UTI's: YES History of kidney stones: no Sexually Active: no Possibility of : No ?? Precipitating factors: Nothing ?? Therapies Tried and outcome: nothing Problem list and histories reviewed & adjusted, as indicated. Additional history: as documented Patient Active Problem List Diagnosis ??? Right hip pain ??? ACP (advance care planning) Past Surgical History Procedure Laterality Date ??? Feltmaker surgery hysterectomy ??? Arthroplasty hip anterior Right 03/10/2016 Procedure: ARTHROPLASTY HIP ANTERIOR; Surgeon: Wayne Estevez MD; Location: OR Social History Substance Use Topics ??? Smoking status: Passive Smoke Exposure - Never Smoker ??? Smokeless tobacco: Not on file ??? Alcohol Use: No No family history on file. Current Outpatient Prescriptions Medication Sig Dispense Refill ??? LISINOPRIL PO Take 10 mg by mouth daily ??? loratadine (CLARITIN) 10 MG tablet Take 10 mg by mouth ??? Cholecalciferol (VITAMIN D3 PO) Take 2,000 Units by mouth daily ??? Lyndon-3 Fatty Acids (OMEGA ESSENTIALS BASIC) LIQD Take 6 mLs by mouth daily ??? albuterol (PROAIR HFA, PROVENTIL HFA, VENTOLIN HFA) 108 (90 BASE) MCG/ACT inhaler Inhale 2 puffsinto the lungs 2 times daily ??? NONFORMULARY Take 1 Tablespoonful by mouth daily ALL NATURAL GREENS ??? NONFORMULARY Take 29 mLs by mouth daily LIQUIDRIVE ANTIOXIDENT (1 ounce) ??? NONFORMULARY Take 5 mLs by mouth daily LIPOSOMAL GLUTATHIONE ??? senna-docusate (SENOKOT-S;PERICOLACE) 8.6-50 MG per tablet Take 1-2 tablets by mouth 2 times daily as needed for constipation 60 tablet 0 ??? CIPROFLOXACIN PO Take 500 mg by mouth 2 times daily 7-Day Course (not yet complete) picked up from pharmacy on 03/05/16 ??? Naproxen Sodium (ALEVE PO) Take 220-440 mg by mouth 2 times daily as needed for moderate pain ??? NONFORMULARY Take 6 mLs by mouth daily LIPOSOMAL CURCUMIN Allergies Allergen Reactions ??? Chlorhexidine Gluconate [Chlorhexidine] Rash ??? Latex Rash Results for orders placed or performed in visit on 06/10/16 UA reflex to Microscopic and Culture Result Value Ref Range Color Urine Yellow Appearance Urine Cloudy Glucose Urine Negative NEG mg/dL Bilirubin Urine Negative NEG Ketones Urine Negative NEG mg/dL Specific [place] Urine 1.015 1.003 - 1.035 Blood Urine Moderate (A) NEG pH Urine 6.5 5.0 - 7.0 pH Protein Albumin Urine Negative NEG mg/dL Urobilinogen Urine 0.2 0.2 - 1.0 EU/dL Nitrite Urine Positive (A) NEG Leukocyte Esterase Urine Large (A) NEG Source Midstream Urine Urine Microscopic Result Value Ref Range WBC Urine >100 (A) 0 - 2 /HPF RBC Urine 50-100 (A) 0 - 2 /HPF Bacteria Urine Many (A) NEG /HPF ROS: Constitutional, HEENT, cardiovascular, pulmonary, gi and gu systems are negative, except as otherwise noted. OBJECTIVE: BP 128/71 mmHg Pulse 82 Temp(Src) 98.9 ??F (37.2 ??C) (Oral) Resp 12 Wt 148 lb (67.132 kg) SpO2 99% ? No Body mass index is 23.9 kg/(m^2). GENERAL: healthy, alert and no distress NECK: [...] no gross musculoskeletal defects noted, no edema Results for orders placed or performed in visit on 06/10/16 UA reflex to Microscopic and Culture Result Value Ref Range Color Urine Yellow Appearance Urine Cloudy Glucose Urine Negative NEG mg/dL Bilirubin Urine Negative NEG Ketones Urine Negative NEG mg/dL Specific [place] Urine 1.015 1.003 - 1.035 Blood Urine Moderate (A) NEG pH Urine 6.5 5.0 - 7.0 pH Protein Albumin Urine Negative NEG mg/dL Urobilinogen Urine 0.2 0.2 - 1.0 EU/dL Nitrite Urine Positive (A) NEG Leukocyte Esterase Urine Large (A) NEG Source Midstream Urine Urine Microscopic Result Value Ref Range WBC Urine >100 (A) 0 - 2 /HPF RBC Urine 50-100 (A) 0 - 2 /HPF Bacteria Urine Many (A) NEG /HPF ASSESSMENT/PLAN: ICD-10-CM 1. Dysuria R30.0 UA reflex to Microscopic and Culture Urine Microscopic 2. Bladder infection N30.90 ciprofloxacin (CIPRO) 250 MG tablet PLAN Patient educational/instructional material provided including reasons for follow-up The patient indicates understanding of these issues and agrees with the plan. Yves Dawkins MD [facility] documented in this encounter Nursing Notes Samreen Waddell - 06/10/2016 6:07 PM CDT Chief Complaint Patient presents with ??? UTI Initial BP 128/71 mmHg Pulse 82 Temp(Src) 98.9 ??F (37.2 ??C) (Oral) Resp 12 Wt 148 lb (67.132 kg) SpO2 99% ? No Estimated body mass index is 23.9 kg/(m^2) as calculated from the following: Height as of 16: 5' 6 (1.676 m). Weight as of this encounter: 148 lb (67.132 kg). BP completed using cuff size: regular Samreen Waddell RELIGIOUS ACTIVITIES DIRECTOR documented in this encounter Plan of Treatment Upcoming Encounters Date Type Specialty Care Team Description 10/26/2022 Lab Oncology Yris Perez MD [address] [facility] [address] [place], [place] [id number] (Wo rk) 11/03/2022 Oncology Visit Oncology Yris Perez MD [address] [facility] [address] [place], [place] [phone] (Wo rk) documented as of this encounter Procedures Procedure Name Priority Date/Time Associated Diagnosis Comme nts URINE MICROSCOPIC Routine 06/10/2016 5:59 PM Dysuria Resu lts for this CDT procedure are i n the results section. UA MACROSCOPIC WITH Routine 06/10/2016 5:59 PM Dysuria Re sults for this REFLEX TO CDT procedure are i n MICROSCOPIC AND the results CULTURE section. URINE CULTURE Routine 06/10/2016 5:59 PM Nonspecific finding R esults for this CDT on examination of procedure are in urine the results section. documented in this encounter Results (ABNORMAL) Urine Culture Aerobic Bacterial (06/10/2016 5:59 PM CDT) Component Value Ref Test Analysis Performed At [facility] gist Range Method Time Signature Specimen Midstream Urine IONIA Description [facility] Culture Micro >100,000 [facility] colonies/mL [facility] coli (A) BANK Micro Report FINAL [facility] Status 06/11/2016 [facility] BANK Organism: >100,000 [facility] colonies/mL [facility] Escherichia [place] [facility] coli BANK Specimen Anatomical Collection Method Collection Time Receive d Time (Source) Location / / Volume Laterality Urine specimen 06/10/2016 5:59 PM 016 6:46 (specimen) CDT PM CDT Organism Antibiotic Method Susceptibility >100,000 colonies/ml Ampicillin <=2 Suscept ible ug/mL escherichia coli (ree) >100,000 colonies/ml Cefazolin <=4 Suscept ible escherichia coli (ree) Cefazolin REE breakpoints are for the felipe tment of uncomplicated ur inary tract infections. ??F or the treatment of sys temic infections, plea se contact the laboratory for additional testing. ug/mL >100,000 colonies/ml Cefoxitin <=4 Suscept ible ug/mL escherichia coli (ree) >100,000 colonies/ml Ceftazidime <=1 Suscept ible ug/mL escherichia coli (ree) >100,000 colonies/ml Ceftriaxone <=1 Suscept ible ug/mL escherichia coli (ree) >100,000 colonies/ml Ciprofloxacin >=4 Resista nt ug/mL escherichia coli (ree) >100,000 colonies/ml Gentamicin <=1 Suscept ible ug/mL escherichia coli (ree) >100,000 colonies/ml Levofloxacin 4 Intermedi ate ug/mL escherichia coli (ree) >100,000 colonies/ml Nitrofurantoin <=16 Suscep tible ug/mL escherichia coli (ree) >100,000 colonies/ml Tobramycin <=1 Suscept ible ug/mL escherichia coli (ree) >100,000 colonies/ml Trimethoprim/Sulfamethoxazo >=16/304 Resistant ug/mL escherichia coli (ree) le >100,000 colonies/ml Ampicillin/Sulbactam <=2 Buenrostro sceptible ug/mL escherichia coli (ree) >100,000 colonies/ml Piperacillin/Tazo <=4 Susce ptible ug/mL escherichia coli (ree) >100,000 colonies/ml Cefepime <=1 Suscept ible ug/mL escherichia coli (ree) Yves Dawkins MD LAB - MICRO GENERAL ORDERABL ES Performing Organization Address City/State/ZIP Code Phon e Number [facility] [address] [place], [place] [id number] [place] [id number] [address] [place] [address] [id number] (ABNORMAL) Urine Microscopic (06/10/2016 5:59 PM CDT) Analysis Performed At Patho logist Time Signature WBC Urine >100 (A) 0 - 2 /HPF [facility] RBC Urine 50-100 (A) 0 - 2 /HPF [facility] Bacteria Urine Many (A) NEG /HPF [facility] Specimen Anatomical Collection Method Collection Time Receive d Time (Source) Location / / Volume Laterality 06/10/2016 5:59 PM 6 6:00 CDT PM CDT Yves Dawkins MD LAB - URINE ORDERABLES Performing Organization Address City/[facility]/ZIP Code Phon e Number [facility] [phone] [address] [id number] (ABNORMAL) UA reflex to Microscopic and Culture (06/10/2016 5:59 PM CDT) [facility] Method Time Signature Color Urine Yellow [facility] Appearance Urine Cloudy [facility] Glucose Urine Negative NEG mg/dL [facility] Bilirubin Urine Negative NEG [facility] Ketones Urine Negative NEG mg/dL [facility] Specific [place] 1.015 1.003 - [place] Urine 1.035 [facility] Blood Urine Moderate (A) NEG [facility] pH Urine 6.5 5.0 - 7.0 [place] pH [facility] Protein Albumin Negative NEG mg/dL [place] Urine [facility] Urobilinogen 0.2 0.2 - 1.0 [place] Urine EU/dL [facility] Nitrite Urine Positive (A) NEG [facility] Leukocyte Large (A) NEG [place] Esterase Urine [facility] Source Midstream [place] Urine [facility] Specimen Anatomical Collection Method Collection Time Receive d Time (Source) Location / / Volume Laterality Urine specimen 06/10/2016 5:59 PM 016 6:00 (specimen) CDT PM CDT Yves Dawkins MD LAB - URINE ORDERABLES Performing Organization Address City/[facility]/ZIP Code Phon e Number [facility] [id number] [address] [place] [address] [phone] documented in this encounter Visit Diagnoses Diagnosis Dysuria - Primary Bladder infection Cystitis, unspecified Nonspecific finding on examination of ur ine Other nonspecific finding on examination of urine documented in this encounter Care Teams Fire Pot Operator Relationship Specialty Start Date End Date Simon Claros MD PCP - General Internal Medicine 09/22/12 08/20/21 documented as of this encounter
--- OUTSIDE RECORDS SUMMARY | 2022-08-20 14:29 | XMS_ITS | Encounter Summary ---
:1945 Author Organization [facility] Address [address] [place] [address] Care Team Providers Name Role Phone Simon Claros MD Primary Care Provider Simon Claros MD Unavailable Simon Claros MD Unavailable Reason for Visit Reason Onset Date Comments UTI 11/05/2016 Encounter Details Date Type Department Care Team Description 11/05/2016 Telephone [facility] Simon Claros MD UTI [place] [address] [facility] [address] [facility], [address] [place] [address] [place] [address] [phone] Social History Tobacco Use Types Packs/Day Years Used Date Passive Smoke Exposure - Never Smoker Smokeless Tobacco: Never Used Alcohol Use Standard Drinks/Week Comments No 0 (1 standard drink = 0.6 oz pure alcoho l) Sex Assigned at Date Recorded Female 01/27/2022 12:36 PM CDT documented as of this encounter Miscellaneous Notes Telephone Encounter - Vira Ramos RN - 11/05/2016 1:00 PM CST states okay to leave . However, patient has already scheduled an appointment with Bridget this afternoon. She would like to keep the appointment. Vira Ramos RN T HEADMAN Telephone Encounter - Erika Kerr - 11/05/2016 12:18 PM CST Reason for call: Patient reporting a symptom Symptom or request: patient has symptoms of UTI Duration (how long have symptoms been present): day and a half Have you been treated for this before? Yes Additional comments: would like to come in for lab only UA and get rx for UTI, said she has done this previously. I did offer her appointment with [facility] this afternoon. [facility] she would like to come in [place]. Phone Number patient can be reached at: Home number on file [phone] (home) Best Time: edward Can we leave a detailed message on this number: YES Call taken on 11/05/2016 at 12:18 PM by Erika Kerr T HEADMAN documented in this encounter Plan of Treatment Upcoming Encounters Date Type Specialty Care Team Description 10/26/2022 Lab Oncology Yris Perez MD [address] [place] [phone] (Wo rk) 11/03/2022 Oncology Visit Oncology Yris Perez MD [address] [place] [address] [phone] (Wo rk) documented as of this encounter Results (ABNORMAL) *UA reflex to Microscopic and Culture ([facility] (except Rosamaria Baird and [place]) (11/05/2016 2:27 PM SHAFT HEADMAN) [facility] Method Time Signature Color Urine Yellow [facility] Appearance Urine Clear [facility] Glucose Urine Negative NEG mg/dL [facility] Bilirubin Urine Negative NEG [facility] Ketones Urine Negative NEG mg/dL [facility] Specific [place] 1.020 1.003 - [place] Urine 1.035 [facility] Blood Urine Moderate (A) NEG [facility] pH Urine 5.5 5.0 - 7.0 [place] pH [facility] Protein Albumin 30 (A) NEG mg/dL [place] Urine [facility] Urobilinogen 0.2 0.2 - 1.0 [place] Urine EU/dL [facility] Nitrite Urine Negative NEG [facility] Leukocyte Large (A) NEG [place] Esterase Urine [facility] Source Midstream [place] Urine [facility] Specimen Anatomical Collection Method Collection Time Receive d Time (Source) Location / / Volume Laterality Urine specimen 11/05/2016 2:27 PM 016 2:28 (specimen) SHAFT HEADMAN PM SHAFT HEADMAN Shannan Phillips APRN APPLIED EXERCISE PHYSIOLOGIST LAB - URINE ORDERABLES Performing Organization Address City/State/ZIP Code Phon e Number [facility] [place] [address] [place] [id number] documented in this encounter Visit Diagnoses Diagnosis Dysuria - Primary documented in this encounter Care Teams Codifier Relationship Specialty Start Date End Date Simon Claros MD PCP - General Internal Medicine 09/22/12 08/20/21 Simon Claros MD PCP - Assigned PCP 06/18/16 01/17/[address] [place] [address] [place] [address] Simon Claros MD Assigned PCP 06/18/16 03/01/[address] [place] [address] [place] [address] documented as of this encounter
--- OUTSIDE RECORDS SUMMARY | 2022-08-20 14:29 | XMS_ITS | Encounter Summary ---
:1945 Author Organization [facility] Address [address] [place] [address] Care Team Providers Name Role Phone Simon Claros MD Primary Care Provider Simon Claros MD Unavailable Simon Claros MD Unavailable Reason for Visit Reason Comments UTI 2 days Encounter Details Date Type Department Care Team Description 11/05/2016 Office Visit [facility] Shannan Pihllips ry tract infection, site unspecified (Primary Dx); Clinic Whitley Montes APRN PIG IRON LOADER Dysuria [address] [facility], [address] [place] [address] [place] [address] Social History Tobacco Use Types Packs/Day Years [...] Sign Reading Time Taken Comments Blood Pressure 116/66 11/05/2016 2:44 PM [facility] Pulse 83 11/05/2016 2:44 PM [facility] Temperature 36.8 ??C (98.2 ??F) 11/05/2016 2:44 PM [facility] Respiratory Rate - - Oxygen Saturation 95% 11/05/2016 2:44 PM [facility] Inhaled Oxygen Concentration - - Weight 65.8 kg (145 lb) 11/05/2016 2:44 PM [facility] Height 166.4 cm (5' 5.5) 11/05/2016 2:44 PM [facility] Body Mass Index 23.76 11/05/2016 2:44 PM [facility] documented in this encounter Progress Notes Shannan Lai, NIMO PIG IRON LOADER - 11/05/2016 1:41 PM CST HPI SUBJECTIVE: Darshana Brooks is a 71 year old female who presents to clinic today for the following health issues: URINARY TRACT SYMPTOMS ?? Duration: 2 days ?? Description dysuria, vaginal discharge and burning sensation ?? Intensity: moderate ?? Accompanying signs and symptoms: Fever/chills: no Flank pain no Nausea and vomiting: no Vaginal symptoms: discharge Abdominal/Pelvic Pain: no ?? History History of frequent UTI's: YES History of kidney stones: no Sexually Active: no Possibility of : No ?? Precipitating or alleviating factors: None ?? Therapies tried and outcome: none Outcome: NA Feeling like a bladder infection is coming on Slight burning and starting to get cloudy She had a cough the last couple months and she cut back her lisinopril which stopped the cough She accidentally forgot to take the Lisinopril the past couple days, and her BP is good today Past Medical History Diagnosis Date ??? Hypertension ??? COPD (chronic obstructive pulmonary disease) (H) Past Surgical History Procedure Laterality Date ??? 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 Arthroplasty hip anterior Right 03/10/2016 Procedure: ARTHROPLASTY HIP ANTERIOR; Surgeon: Wayne Estevez MD; Location: OR Social History Substance Use Topics ??? Smoking status: Passive Smoke Exposure - Never Smoker ??? Smokeless tobacco: Never Used ??? Alcohol Use: No Current Outpatient Prescriptions Medication Sig Dispense Refill ??? loratadine (CLARITIN) 10 MG tablet Take 10 mg by mouth ??? Cholecalciferol (VITAMIN D3 PO) Take 2,000 Units by mouth daily ??? Stewart-3 Fatty Acids (OMEGA ESSENTIALS BASIC) LIQD Take 6 mLs by mouth daily ??? albuterol (PROAIR HFA, PROVENTIL HFA, VENTOLIN HFA) 108 (90 BASE) MCG/ACT inhaler Inhale 2 puffsinto the lungs 2 times daily as needed ??? NONFORMULARY Take 1 Tablespoonful by mouth daily ALL NATURAL GREENS ??? NONFORMULARY Take 29 mLs by mouth daily LIQUIDRIVE ANTIOXIDENT (1 ounce) ??? NONFORMULARY Take 5 mLs by mouth daily LIPOSOMAL GLUTATHIONE ??? NONFORMULARY Take 6 mLs by mouth daily LIPOSOMAL CURCUMIN ??? LISINOPRIL PO Take 10 mg by mouth daily Allergies Allergen Reactions ??? Sulfamethoxazole Heartburn ??? Chlorhexidine Gluconate [Chlorhexidine] Rash ??? Latex Rash Reviewed PMH, med list and allergies. ROS Detailed as above BP 116/66 mmHg Pulse 83 Temp(Src) 98.2 ??F (36.8 ??C) (Oral) Ht 5' 5.5 (1.664 m) Wt 145 lb (65.772 kg) BMI 23.75 kg/m2 SpO2 95% Physical Exam Constitutional: She is well-developed, well-nourished, and in no distress. Neurological: She is alert. Psychiatric: Mood and affect normal. Vitals reviewed. UA RESULTS: Recent Labs Lab Test 11/05/16 1427 COLOR Yellow APPEARANCE Clear URINEGLC Negative URINEBILI Negative URINEKETONE Negative SG 1.020 UBLD Moderate* URINEPH 5.5 PROTEIN 30* UROBILINOGEN 0.2 NITRITE Negative LEUKEST Large* RBCU 10-25* WBCU 50-100* Assessment and Plan: ICD-10-CM 1. Urinary tract infection, site unspecified N39.0 cephALEXin (KEFLEX) 500 MG capsule 2. Dysuria R30.0 CANCELED: *UA reflex to Microscopic and Culture ([facility] and [facility] (except [place] and [place]) Positive UA Will treat rtc prn Shannan Lai APRN, PIG IRON LOADER [facility] STAR documented in this encounter Nursing Notes Deidre Bird, CHEMIST STEROIDS - 11/05/2016 2:46 PM CST Chief Complaint Patient presents with ??? UTI 2 days Initial BP 116/66 mmHg Pulse 83 Temp(Src) 98.2 ??F (36.8 ??C) (Oral) Ht 5' 5.5 (1.664 m) Wt145 lb (65.772 kg) BMI 23.75 kg/m2 SpO2 95% Estimated body mass index is 23.75 kg/(m^2) as calculated from the following: Height as of this encounter: 5' 5.5 (1.664 m). Weight as of this encounter: 145 lb (65.772 kg). BP completed using cuff size: regular, right arm. Deidre Bird CMA STAR documented in this encounter Plan of Treatment Upcoming Encounters Date Type Specialty Care Team Description 10/26/2022 Lab Oncology Yris Perez MD [address] [place] [id number] (Wo rk) 11/03/2022 Oncology Visit Oncology Yris Perez MD [address] [place] [address] [phone] (Wo rk) documented as of this encounter Visit Diagnoses Diagnosis Urinary tract infection, site unspecifie d - Primary Dysuria documented in this encounter Care Teams Change Management Director Relationship Specialty Start Date End Date Simon Claros MD PCP - General Internal Medicine 09/22/12 08/20/21 Simon Claros MD PCP - Assigned PCP 06/18/16 01/17/19 [address] [place] [id number] Simon Claros MD Assigned PCP 06/18/16 03/01/21 [address] [place] [address] documented as of this encounter
--- OUTSIDE RECORDS SUMMARY | 2022-08-20 14:29 | XMS_ITS | Encounter Summary ---
:1945 Author Organization [facility] Address [address] [place] [address] Care Team Providers Name Role Phone Simon Claros MD Primary Care Provider Reason for Visit Auth/Cert Specialty Diagnoses / Procedures Referred By Contact Refer red To Contact Surgery Diagnoses RIGHT HIP DJD Sh Periop Services Procedures ARTHROPLASTY HIP ANTERIOR [address] [place] [address] Phone: Referral ID Status Reason Start Date Expiration Date Visits Requ ested Visits Authorized [id number] 1 1 Encounter Details Date Type Department Care Team Description 03/10/2016 Anesthesia Event [facility] Jonas Saavedra MD [facility] [address] [place] [address] [place] [address] [phone] (Wo rk) Anesthesia Record Procedure Summary Procedure Name Responsible Anesthesia Start Anesthesia Stop Anesthesiologist Time Time RIGHT TOTAL HIP Jonas Saavedra MD 03/10/16 1047 03/10/16 134 0 ARTHROPLASTY ANTERIOR APPROACH (Right Hip) Events Date Time Event Comment 03/10/2016 0959 1047 An Start 1047 Quick Note To OR all monito rs on and functional. 1049 An Start Data 1055 An Induction 1058 An Intubation 1058 AN START SEVO 1058 Quick Note Pre-02 . Unevent ful IV induction and intubation as noted. 1134 Quick Note Time out perform ed . 1135 AN INCISION 1312 AN END SEVO 1334 AN Extubation 1334 an stop data 1340 An Stop Electronically s igned by Ruchi Ferrer on March 10, 2016 1:40 PM Name Total dexamethasone 4mg/mL 4 mg fentaNYL (SUBLIMAZE) injection 300 mcg glycopyrrolate 0.2mg/mL 0.8 mg lidocaine 2% 100 mg midazolam 1mg/mL 2 mg neostigmine 1mg/mL 5 mg phenylephrine 0.1mg/mL 1,200 mcg ondansetron 2mg/mL 4 mg propofol (DIPRIVAN) injection 10 mg/mL vial 150 mg rocuronium 10mg/mL 75 mg CeFAZolin Sodium-Dextrose (ANCEF) intermittent infusio n 2 g 3 g ceFAZolin (ANCEF) 1 g vial to attach to NS 100 ml bag for ADULT or 50 ml 1 g bag for PEDS tranexamic Acid (CYKLOKAPRON) 1 g in NaCl 0.9 % 60 mL bolus 2 g lactated ringers infusion 2,800 mL Agents Name O2 N2O Air Exp Sevoflurane Ins Sevoflurane Blood No blood administrations on file. Lines, Drains, and Airways Type Details Placement Removal Incision/Surgical Site 03/10/16; 1312; 03/10/16 1312 by Right; Hip Haven Ansari RN Peripheral IV 03/10/16; 1003; 18 G; 03/10/16 1003 by 03/11/16 1509 by Right; Hand; Alcohol Masha Kunz, Caroline simpson, Ashleylizette Bass, ODESSA Urethral Catheter 03/10/16; 1050; No; 03/10/16 1050 by 03/11/16 0605 by Other (Comment) Haven Ansari RN GRIFFIN, ELI ZABETH K (surgeon ordered); 16 fr RETIRED ETT 03/10/16; 1059; Mask 03/10/16 1059 by 03/10/16 1 334 by Ventilation: Easy; Ion Kerr Angelats, Erin M Ease of Intubation: SERVICES REP ASPHALT PATCHER SERVICES REP AUSTYN Easy; Airway Size: 7; Cuffed; Oral; Blade Type: Matthew; Blade Size: 2; Place by: AUSTYN Kerr; Insertion Attempts: 1; Secured at (cm)to lip: 20 cm; Breath Sounds: Equal, clear and bilateral; End Tidal CO2: Present; Dentition: Intact; Grade View of Cords: 1 documented in this encounter Social History Tobacco Use Types Packs/Day Years Used Date Passive Smoke Exposure - Never Smoker Alcohol Use Standard Drinks/Week Comments No 0 (1 standard drink = 0.6 oz pure alcoho l) Sex Assigned at Date Recorded Female 01/27/2022 12:36 PM CDT documented as of this encounter OR Notes Anesthesia Postprocedure Evaluation - Jonas Saavedra MD - 03/10/2016 2:36 PM CDT Patient: Darshana [place] ARTHROPLASTY HIP ANTERIOR (Right Hip) Additional InformationProcedure(s): RIGHT TOTAL HIP ARTHROPLASTY ANTERIOR APPROACH - Wound Class: I-Clean Diagnosis:RIGHT HIP DJD Diagnosis Additional Information: No value filed. Anesthesia Type: General, ETT Note: Anesthesia Post Evaluation Patient location during evaluation: PACU Patient participation: Able to fully participate in evaluation Level of consciousness: awake Pain management: adequate Airway patency: patent Anesthetic complications: no Cardiovascular status: acceptable Respiratory status: acceptable Hydration status: acceptable PONV: controlled Last vitals: Filed Vitals: 03/10/16 1340 03/10/16 1350 03/10/16 1400 BP: 146/76 141/73 158/73 Pulse: Temp: Resp: 11 11 11 SpO2: 99% 99% 93% Electronically Signed By: JONAS SAAVEDRA MD March 10, 2016 2:36 PM Anesthesia Preprocedure Evaluation - Jonas Saavedra MD - 03/10/2016 8:35 AM CDT Anesthesia Evaluation . ROS/MED HX ENT/Pulmonary: (+)mild COPD, , . . (-) sleep apnea Neurologic: Cardiovascular: (+) hypertension----. : . . . :. . METS/Exercise Tolerance: Hematologic: Musculoskeletal: GI/Hepatic: (-) GERD Renal/Genitourinary: Endo: Psychiatric: Infectious Disease: Malignancy: Other: Physical Exam Normal systems: dental Airway Mallampati: II TM distance: <3 FB Neck ROM: full Dental Cardiovascular Rhythm and rate: regular and normal Pulmonary breath sounds clear to auscultation Anesthesia Plan ASA Score: 2 . Plan for General and ETT - with Intravenous induction. Maintenance will be Balanced. Anesthetic plan, risks, benefits and alternatives discussed with: patient or asset protection representative. Routine analgesia and antiemetics . History & Physical Review History and physical reviewed and following examination; no interval change. . documented in this encounter Miscellaneous Notes Anesthesia Care Transfer Note - Ruchi Ferrer APRN CRNA - 03/10/2016 1:40 PM CDT Patient: Dasrhana [place] ARTHROPLASTY HIP ANTERIOR (Right Hip) Additional [email or web address] Diagnosis: RIGHT HIP DJD Diagnosis Additional Information: No value filed. Anesthesia Type: General, ETT Note: Airway :Face Mask Patient transferred to:PACU Comments: VSS Electronically Signed By: Ruchi Ferrer APRN CRNA March 10, 2016 1:40 PM documented in this encounter Plan of Treatment Upcoming Encounters Date Type Specialty Care Team Description 10/26/2022 Lab Oncology Yris Perez MD [address] [phone] (Madeleine proctor) 11/03/2022 Oncology Visit Oncology Yris Perez MD [address] [phone] (Madeleine proctor) documented as of this encounter Visit Diagnoses Not on filedocumented in this encounter Administered Medications Inactive Administered Medications - up to 3 most recent administrations Medication Order MAR Action Action Date Dose Rate Site ceFAZolin (ANCEF) 1 g vial to attach Given 03/10/2016 1:10 PM CD T 1 g to NS 100 ml bag for ADULT or 50 ml bag for PEDS Routine, 1 g, Intravenous, SEE ADMIN INSTRUCTIONS, Starting on Wed03/10/16 at 0859, Intra-Op Dose.?Give every 2 hours while patient in surgery, starting 2 hours after pre-op dose.?DO NOT GIVE intra-op dose if CrCl less than 10 mL/min (on dialysis).?If CrCL less than 50 mL/min, double the time interval between doses., Indications: Perioperative Pharmacoprophylaxis CeFAZolin Sodium-Dextrose (ANCEF) intermittent Given 016 1:06 PM CDT 1 g infusion 2 g Routine, 2 g, Intravenous, PRE-OP/PRE-PROCEDURE, Starting on Wed03/10/16 at 0859, For 1 dose, Give first dose within 1 hour PRIOR to incision. If patient weight is greater than or equal to 120 kg increase dose to 3 g., Indications: Perioperative Pharmacoprophylaxis, Pre-procedure Given 03/10/2016 11:10 AM CDT 2 g dexamethasone (DECADRON) injection Given 03/10/2016 11:20 AM CDT 4 mg PRN, Administer over 1-4 Minutes, Starting on Wed03/10/16 at 1120, Anesthesia Intra-op FentaNYL Citrate (PF) (SUBLIMAZE) inject ion Given 03/10/2016 12:39 PM CDT 50 mcg PRN, moderate to severe pain, Starting on Wed03/10/16 at 1055, Anesthesia Intra-op Given 03/10/2016 11:45 AM CDT 50 mcg Given 03/10/2016 11:40 AM CDT 100 mcg glycopyrrolate (ROBINUL) injection Given 03/10/2016 1:15 PM CDT 0.8 mg PRN, Starting on Wed03/10/16 at 1315, Anesthesia Intra-op lactated ringers infusion New Bag 03/10/2016 12:29 PM CDT at 25 mL/hr, Intravenous, CONTINUOUS, IF patient NOT on dialysis., Starting on Wed03/10/16 at 0900, Until Wed03/10/16 at 1618 New Bag 03/10/2016 11:28 AM CDT New Bag 03/10/2016 10:04 AM CDT 25 mL/hr lidocaine injection 2% (MDV) Given 03/10/2016 10:55 AM CDT 100 mg PRN, Starting on Wed03/10/16 at 1055, Anesthesia Intra-op midazolam (VERSED) injection Given 03/10/2016 10:47 AM CDT 2 mg PRN, anxiety, Starting on Wed03/10/16 at 1047, Anesthesia Intra-op neostigmine (PROSTIGMINE) injection Given 03/10/2016 1:15 PM CDT 5 mg Intravenous, PRN, Starting on Wed03/10/16 at 1315, Anesthesia Intra-op ondansetron (ZOFRAN) injection Given 03/10/2016 11:20 AM CDT 4 mg PRN, nausea, vomiting, Administer over 2-5 Minutes, Starting on Wed03/10/16 at 1120, Anesthesia Intra-op phenylephrine injection Given 03/10/2016 1:13 PM CDT 100 mcg PRN, Starting on Wed03/10/16 at 1105, Anesthesia Intra-op Given 03/10/2016 1:02 PM CDT 100 mcg Given 03/10/2016 12:46 PM CDT 100 mcg propofol (DIPRIVAN) injection 10 mg/mL v ial Given 03/10/2016 10:55 AM CDT 150 mg PRN, Starting on Wed03/10/16 at 1055, Anesthesia Intra-op rocuronium (ZEMURON) injection Given 03/10/2016 12:34 PM CDT 5 mg PRN, Starting on Wed03/10/16 at 1055, Anesthesia Intra-op Given 03/10/2016 11:41 AM CDT 20 mg Given 03/10/2016 10:55 AM CDT 50 mg tranexamic Acid (CYKLOKAPRON) 1 g in NaCl 0.9 % Given 03/10/2016 1:05 PM CDT 1 g 60 mL bolus 1 g, Intravenous, ONCE, On Wed03/10/16 at 0900, For 1 dose, Each 1 gram to be infused over 10 minutes., Pre-procedure Given 03/10/2016 11:10 AM CDT 1 g documented in this encounter Care Teams Banana Expert Relationship Specialty Start Date End Date Simon Claros MD PCP - General Internal Medicine 09/22/12 08/20/21 documented as of this encounter
--- OUTSIDE RECORDS SUMMARY | 2022-08-20 14:29 | XMS_ITS | Encounter Summary ---
:1945 Author Organization [facility] Address [address] [place] [address] Care Team Providers Name Role Phone Simon Claros MD Primary Care Provider Simon Claros MD Unavailable Simon Claros MD Unavailable Reason for Visit Reason Onset Date Comments No Show No Show 02/01/2017 Encounter Details Date Type Department Care Team Description 01/25/2017 Office Visit [facility] Simon Claros, Benign essential hypertension (Primary Dx); Clinic [facility] HINES Chronic obstructive pulmonary disease, u nspecified COPD type (H); [address] Right h ip pain; [address], [address] Dysuria; [place] [address] [place], [place] NO SHOW [phone] Social History Tobacco Use Types Packs/Day Years Used Date Passive Smoke Exposure - Never Smoker Smokeless Tobacco: Never Used Alcohol Use Standard Drinks/Week Comments No 0 (1 standard drink = 0.6 oz pure alcoho l) Sex Assigned at Date Recorded Female 01/27/2022 12:36 PM CDT documented as of this encounter Progress Notes Cristine Tello CMA - 02/01/2017 3:03 PM CDT This patient was a no show for this scheduled appointment. Fatuma Bliss CMA - 01/25/2017 4:30 PM CDT documented in this encounter Plan of Treatment Upcoming Encounters Date Type Specialty Care Team Description 10/26/2022 Lab Oncology Yris Perez MD [address] [facility] [address] [place] [address] (Wo rk) 11/03/2022 Oncology Visit Oncology Yris Perez MD [address] [facility] [address] [place] [address] (Wo rk) documented as of this encounter Visit Diagnoses Diagnosis Benign essential hypertension - Primary Essential hypertension, benign Chronic obstructive pulmonary disease, u nspecified COPD type (H) Right hip pain Pain in joint, pelvic region and thigh Dysuria NO SHOW documented in this encounter Additional Health Concerns Infection Onset Date Last Indicated Resolved Time 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, 01/08/2017 9 06/08/17, 08/26/17 documented as of this encounter Care Teams Associate Professor Of Engineering Relationship Specialty Start Date End Date Simon Claros MD PCP - General Internal Medicine 09/22/12 08/20/21 Simon Claros MD PCP - Assigned PCP 06/18/16 01/17/19 [address] [place] [address] Simon Claros MD Assigned PCP 06/18/16 03/01/21 [address] [place] [address] documented as of this encounter
--- OUTSIDE RECORDS SUMMARY | 2022-08-20 14:29 | XMS_ITS | Encounter Summary ---
:1945 Author Organization [place] Address [address] [facility] [place] [address] Care Team Providers Name Role Phone Simon Claros MD Primary Care Provider Simon Claros MD Unavailable Simon Claros MD Unavailable Reason for Visit (Routine) - Closed Specialty Diagnoses / Procedures Referred By Contact Refer red To Contact Radiology / Radiology. Diagnoses sb pt, pt informed 3d. Sh Breast Imaging Procedures MA SCREENING DIGITAL BILATERAL [address] [facility], [address] [place] [address] Phone: Referral ID Status Reason Start Date Expiration Date Visits Requ ested Visits Authorized [id number] Closed 01/11/2017 01/11/2018 1 1 Encounter Details Date Type Department Care Team Description 01/13/2017 Hospital Encounter [facility] Simon Claros for screening [facility] Breast [facility] [address] [facility] [address], [address] [place] [phone] Social History Tobacco Use Types Packs/Day Years [...] Dispensed Refills Start Date End Date Cholecalciferol Take 2,000 Units by 0 (VITAMIN D3 PO) mouth daily loratadine (CLARITIN) Take 10 mg by mouth 0 10 MG tablet albuterol (PROAIR HFA, Inhale 2 puffs into 0 02/03/2017 PROVENTIL HFA, VENTOLIN the lungs 2 times HFA) 108 (90 BASE) daily as needed MCG/ACT inhaler albuterol (PROAIR Inhale 2-4 puffs into 0 04/20/2018 HFA/PROVENTIL the lungs as needed HFA/VENTOLIN HFA) 108 (90 BASE) MCG/ACT Inhaler atovaquone-proguanil Take 1 tab 2 days 0 12/04/19 17 01/25/2017 (MALARONE) 250-100 MG before malarial per tablet mosquito exposure, daily while there, and 7 days after. azithromycin Take 1 tab daily as 0 12/01/2016 (ZITHROMAX) 500 MG needed for severe tablet traveler's diarrhea cephALEXin (KEFLEX) 500 Take 1 capsule (500 30 capsule 0 01/25/2017 MG capsuleIndications: mg) by mouth 3 times Dysuria daily WDK-Ndny-YnAqyg-MgHydr- Take 10 mLs by mouth 0 01/25/2017 Simeth (FIRST-MOUTHWASH BLM) SUSP LISINOPRIL PO Take 10 mg by mouth 0 daily NONFORMULARY Take 1 Tablespoonful 0 by mouth daily ALL NATURAL GREENS NONFORMULARY Take 29 mLs by mouth 0 daily LIQUIDRIVE ANTIOXIDENT (1 ounce) NONFORMULARY Take 5 mLs by mouth 0 10/2017 daily LIPOSOMAL GLUTATHIONE NONFORMULARY Take 6 mLs by mouth 0 10/2017 daily LIPOSOMAL CURCUMIN Bill[place]-3 Fatty Acids Take 6 mLs by mouth 0 08/26/2017 (OMEGA ESSENTIALS daily BASIC) LIQD documented as of this encounter Progress Notes Jessi Reina PA-C - 01/13/2017 4:31 PM CST Please call pt and let her know that her mammogram came back and they are requesting additional images Have her call [phone] to get diagnostic mammogram and ultrasound done Nothing looks too worrisome at this point (just focal asymmetry) so a few more pictures are needed. DING SERVICES SUPERVISOR documented in this encounter Plan of Treatment Upcoming Encounters Date Type Specialty Care Team Description 10/26/2022 Lab Oncology Yris Perez MD [address] [facility] [address] [place] [address] (Wo rk) 11/03/2022 Oncology Visit Oncology Yris Perez MD [address] [facility] [address] [place] [address] (Wo rk) documented as of this encounter Procedures Procedure Name Priority Date/Time Associated Diagnosis Comme nts MA SCREENING Routine 01/13/2017 11:45 AM Visit for screening R esults for this DIGITAL BILATERAL BUILDING SERVICES SUPERVISOR mammogram procedure are in the results section. documented in this encounter Results MA Screening Digital Bilateral (01/13/2017 11:45 AM BUILDING SERVICES SUPERVISOR) Anatomical Region Laterality Modality Breast Bilateral Mammography Specimen (Source) Anatomical Location Collection Method / Collectio n Time Received Time / Laterality Volume Impressions 01/13/2017 2:16 PM BUILDING SERVICES SUPERVISOR IMPRESSION: BI-RADS CATEGORY: 0 - Need Additional Imaging Evaluation and/or Prior Mammograms for Comparison. RECOMMENDED FOLLOW-UP: Diagnostic Mammog [place] and Ultrasound, beginning with magnification views. Exam results letter mailed to patient. GEOFF WRIGHT MD Narrative 01/13/2017 2:16 PM BUILDING SERVICES SUPERVISOR SCREENING MAMMOGRAM, BILATERAL, DIGITAL w/CAD - 01/13/2017 11:45 AM. BREAST SYMPTOMS: No current breast compl aints. COMPARISON: ??01/08/2016, 11/28/2014, 09/16, 02/16/2006. BREAST DENSITY: Heterogeneously dense. COMMENTS: No findings of suspicions in t he left breast. Calcification cluster in the mid upper r ight breast. This requires magnification views. Focal asymmetry in the medial right linda st on the craniocaudad view. Recommend additional mammography and pos sible ultrasound. Procedure Note Geoff Wright MD - 7 SCREENING MAMMOGRAM, BILATERAL, DIGITAL w/CAD - 01/13/2017 11:45 AM. BREAST SYMPTOMS: No current breast compl aints. COMPARISON: 01/08/2016, 11/28/2014, 2011, 02/16/2006. BREAST DENSITY: Heterogeneously dense. COMMENTS: No findings of suspicions in t he left breast. Calcification cluster in the mid upper r ight breast. This requires magnification views. Focal asymmetry in the medial right linda st on the craniocaudad view. Recommend additional mammography and pos sible ultrasound. IMPRESSION: BI-RADS CATEGORY: 0 - Need A dditional Imaging Evaluation and/or Prior Mammograms for Comparison. RECOMMENDED FOLLOW-UP: Diagnostic Mammog china and Ultrasound, beginning with magnification views. Exam results letter mailed to patient. GEOFF WRIGHT MD Simon Claros MD IMG MAMMOGRAPHY ORDERABLES documented in this encounter Visit Diagnoses Diagnosis Visit for screening mammogram Other screening mammogram documented in this encounter Additional Health Concerns Infection Onset Date Last Indicated Resolved Time 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, 01/08/2017 9 06/08/17, 08/26/17 documented as of this encounter Care Teams Microfabrication Engineer Manager Relationship Specialty Start Date End Date Simon Claros MD PCP - General Internal Medicine 09/22/12 08/20/21 Simon Claros MD PCP - Assigned PCP 06/18/16 01/17/19 [address] [place] [address] Simon Claros MD Assigned PCP 06/18/16 03/01/21 [address] [place] [address] documented as of this encounter
--- OUTSIDE RECORDS SUMMARY | 2022-08-20 14:29 | XMS_ITS | Encounter Summary ---
:1945 Author Organization [place] Address [address] [facility] [place] [address] Care Team Providers Name Role Phone Simon Claros MD Primary Care Provider Reason for Visit Reason Onset Date Comments Orders 06/12/2016 Encounter Details Date Type Department Care Team Description 06/12/2016 Telephone [facility] Urgent Francisco J Gallo er Orders Care [place] [address] [facility] No [facility] [address] [facility]. [place], [place] [address] [place] [address] [phone] (Wo rk) Social History Tobacco Use Types [...] 10/26/2022 Lab Oncology Yris Perez MD [address] [phone] (Wo rk) 11/03/2022 Oncology Visit Oncology Yris Perez MD [address] [phone] (Wo rk) documented as of this encounter Visit Diagnoses Diagnosis UTI symptoms - Primary documented in this encounter Care Teams Data Entry Processor Relationship Specialty Start Date End Date Simon Claros MD PCP - General Internal Medicine 09/22/12 08/20/21 documented as of this encounter
--- OUTSIDE RECORDS SUMMARY | 2022-08-20 14:29 | XMS_ITS | Encounter Summary ---
:1945 Author Organization [place] Address [address] [facility] [place] [address] Care Team Providers Name Role Phone Simon Claros MD Primary Care Provider Simon Claros MD Unavailable Simon Claros MD Unavailable Encounter Details Date Type Department Care Team Description 01/11/2017 Telephone [facility] Simon Claros MD [place] [address] [facility] [address] [facility], [address] [place] [address] [place] [address] [phone] Social History Tobacco Use Types Packs/Day Years [...] Lab Oncology Yris Perez MD [address] [address] (Madeleine proctor) 11/03/2022 Oncology Visit Oncology Yris Perez MD [address] [address] (Madeleine proctor) documented as of this encounter Results (ABNORMAL) UA reflex to Microscopic and Culture (09/07/2017 4:31 PM CDT) [facility] Method Time Signature Color Urine Yellow 09/07/2017 [place] 4:53 PM [facility] Appearance Urine Clear 09/07/2017 [place] 4:53 PM [facility] Glucose Urine Negative NEG^Negat 09/07/2017 [place] dee mg/dL 4:53 PM CDT [facility] Bilirubin Urine Negative NEG^Negat 09/07/2017 [place] dee 4:53 PM CDT [facility] Ketones Urine Negative NEG^Negat 09/07/2017 [place] dee mg/dL 4:53 PM CDT [facility] Specific [place] 1.010 1.003 - 09/07/2017 [place] Urine 1.035 4:53 PM CDT [facility] Blood Urine Moderate (A) NEG^Negat 09/07/2017 [place] dee 4:53 PM CDT [facility] pH Urine 6.0 5.0 - 7.0 09/07/2017 [place] pH 4:53 PM CDT [facility] Protein Albumin Negative NEG^Negat 09/07/2017 [place] Urine dee mg/dL 4:53 PM CDT [facility] Urobilinogen 0.2 0.2 - 1.0 09/07/2017 [place] Urine EU/dL 4:53 PM CDT [facility] Nitrite Urine Negative NEG^Negat 09/07/2017 [place] dee 4:53 PM CDT [facility] Leukocyte Trace (A) NEG^Negat 09/07/2017 [place] Esterase Urine dee 4:53 PM CDT [facility] Source Midstream 09/07/2017 [place] Urine 4:53 PM CD[facility] Specimen (Source) Anatomical Collection Method Collection Time Re ceived Time Location / / Volume Laterality Examination of 09/07/2017 4:31 09/07/2017 4:32 midstream urine PM CDT PM CDT specimen (procedure) Simon Claros MD LAB - URINE ORDERABLES Performing Organization Address City/State/ZIP Code Phon e Number [facility] [place] [address] [facility] [address] [place] [id number] documented in this encounter Visit Diagnoses Diagnosis Dysuria - Primary documented in this encounter Additional Health Concerns Infection Onset Date Last Indicated Resolved Time 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, 01/08/2017 9 06/08/17, 08/26/17 documented as of this encounter Care Teams Horse Wrangler Relationship Specialty Start Date End Date Simon Claros MD PCP - General Internal Medicine 09/22/12 08/20/21 Simon Claros MD PCP - Assigned PCP 06/18/16 01/17/19 [address] [place] [address] Simon Claros MD Assigned PCP 06/18/16 03/01/21 [address] [place] [address] documented as of this encounter
--- OUTSIDE RECORDS SUMMARY | 2022-08-20 14:29 | XMS_ITS | Encounter Summary ---
:1945 Author Organization [place] Address [facility] [place] [address] Care Team Providers Name Role Phone Simon Claros MD Primary Care Provider Reason for Visit Reason Comments Other Encounter Details Date Type Department Care Team Description 06/02/2016 Documentation Only [place] Sruthi Gibson Other [address] [facility] [address] [place] [address] Social History Tobacco Use Types Packs/Day Years Used Date Passive Smoke Exposure - Never Smoker Alcohol Use Standard Drinks/Week Comments No 0 (1 standard drink = 0.6 oz pure alcoho l) Sex Assigned at Date Recorded Female 01/27/2022 12:36 PM CDT documented as of this encounter Plan of Treatment Upcoming Encounters Date Type Specialty Care Team Description 10/26/2022 Lab Oncology Yris Peerz MD [address] [address] (Wo rk) 11/03/2022 Oncology Visit Oncology Yris Perez MD [address] [phone] (Wo rk) documented as of this encounter Visit Diagnoses Diagnosis ACP (advance care planning) - Primary Other specified counseling documented in this encounter Care Teams Loading Machine Adjuster Relationship Specialty Start Date End Date Simon Claros MD PCP - General Internal Medicine 09/22/12 08/20/21 documented as of this encounter
--- OUTSIDE RECORDS SUMMARY | 2022-08-20 14:29 | XMS_ITS | Encounter Summary ---
:1945 Author Organization [place] Address [address] [place] [address] Care Team Providers Name Role Phone Simon Claros MD Primary Care Provider Simon Claros MD Unavailable Simon Claros MD Unavailable Reason for Referral Diagnostic Procedure Outpatient - Closed Specialty Diagnoses / Procedures Referred By Contact Refer red To Contact Diagnoses Colon cancer screening Simon Claros MD [facility] [address] [facility] [address] [facility] [address] [facility] [address] Fax: Referral ID Status Reason Start Date Expiration Date Visits Requ ested Visits Authorized [id number] Closed 01/06/2017 01/06/2018 1 1 [facility] Reason for Visit Reason Comments Wellness Visit Encounter Details Date Type Department Care Team Description 01/05/2017 Office Visit [facility] Simon Claros, Right hip pain (Primary Dx); Clinic [facility] Benign essential hypertension; [address] Chronic obstructive pulmonary disease, unspecified COPD type (H); [address] [place] [address] Routine general medical examination at a health care facility; [facility] [address] [facility] Osteopenia; [phone] [id number] Nonspecific finding on examination of ur ine; [phone] Acute cystitis without hematuria; (Work) Urinary tract infection without hematuri a, site unspecified; [phone] Colon cancer marni marmolejo (Fax) Social History Tobacco Use Types Packs/Day Years Used Date Passive Smoke Exposure - Never Smoker Smokeless Tobacco: Never Used Alcohol Use Standard Drinks/Week Comments No 0 (1 standard drink = 0.6 oz pure alcoho l) Sex Assigned at Date Recorded Female 01/27/2022 12:36 PM CDT documented as of this encounter Last Filed Vital Signs Vital Sign Reading Time Taken Comments Blood Pressure 114/73 01/05/2017 8:41 AM [facility] Pulse 66 01/05/2017 8:41 AM [facility] Temperature 36.9 ??C (98.4 ??F) 01/05/2017 8:41 AM [facility] Respiratory Rate - - Oxygen Saturation 97% 01/05/2017 8:41 AM [facility] Inhaled Oxygen Concentration - - Weight 65 kg (143 lb 6.4 oz) 01/05/2017 8:41 AM [facility] Height 167.6 cm (5' 6) 01/05/2017 8:41 AM [facility] Body Mass Index 23.15 01/05/2017 8:41 AM [facility] documented in this encounter Patient Instructions Patient InstructionsMooring, Cadence Yun - 01/05/2017 8:40 AM CST Preventive Health Recommendations Female Ages 65 + [...] such as glaucoma, macular degeneration and cataracts. [facility] documented in this encounter Progress Notes Simon Claros MD - 01/11/2017 8:19 AM CST I called the patient and informed of results. The following changes were made to treatment: I called patient to review all of her lab reports which show improvement as compared to one year agoespecially in regards to her lipids. She does have a UTI sensitive to Keflexwhich will Be initiated and taken for 10 days with follow-up UA,u/c. Patient voices understanding and will contact me with any further questions. Simon Claros MD [facility] Simon Claros MD - 01/05/2017 8:40 AM CST SUBJECTIVE: Darshana Brooks is a 71 year old female who presents for Preventive Visit. Patient sought orthopedic consultation and was diagnosed with drop foot and pain at the right hip. She was then sent to the [facility] for further evaluation. She notes improvement in symptoms. Mrs. Brooks also complains of chronic right hip pain with associated numbness of the great to 3rd toessince April 2016. Patient reports discomfort in her thigh after releasing full body-weight pressure from right leg. She notes, overall, pain has been gradually improving with fluctuations in intensity. Patient, who has diagnosed urinary tract infection, reports cloudy urine and dysuria. For initial presentation, evaluation and plan of care see Shannan Lai APRN's note from clinic visit on 11/05/16. She reports symptoms have significantly improved without the use of antibiotics. Are you in the first 12 months of your Medicare Part B coverage? No Healthy Habits: ?? Do you get at least three servings of calcium containing foods daily (dairy, green leafy vegetables, etc.)? yes ?? Amount of exercise or daily activities, outside of work: No ?? Problems taking medications regularly Yes, Lisinopril ?? Medication side effects: Yes Cough ?? Have you had an eye exam in the past two years? no ?? Do you see a dentist twice per year? no ?? Do you have sleep apnea, excessive snoring or daytime drowsiness?no COGNITIVE SCREEN 1) Repeat 3 items (Banana, [place], Chair) 2) Clock draw: NORMAL 3) 3 item recall: Recalls 3 objects Results: NORMAL clock, 1-2 items recalled: COGNITIVE IMPAIRMENT LESS LIKELY Mini-CogTM Copyright [employer]. Licensed by the author for use in [facility]; reprintedwith permission (jorge@.[facility]). All rights reserved. All Histories reviewed and updated in EPIC as appropriate. Social History Substance Use Topics ??? Smoking status: Passive Smoke Exposure - Never Smoker ??? Smokeless tobacco: Never Used ??? Alcohol use No The patient does not drink >3 drinks per day nor >7 drinks per week. Today's PHQ-2 Score: PHQ-2 (??1999 Pfizer) 11/05/2016 07/03/2016 Q1: Little interest or pleasure in doing [...] MD as PCP - General (Internal Medicine) ?? Hearing impairment: No ?? Ability to successfully perform activities of daily living: Yes, no assistance needed ?? Home safety: none identified The following health maintenance items are reviewed in [facility] and correct as of today: Health Maintenance Topic Date Due ??? HEPATITIS C SCREENING 1963 ??? PNEUMOCOCCAL (2 of 2 - PPSV23) 12/16/2016 ??? FALL RISK ASSESSMENT 11/05/2017 ??? MAMMO SCREEN Q2 YR (SYSTEM ASSIGNED) 01/08/2018 ??? TETANUS IMMUNIZATION (SYSTEM ASSIGNED) 02/11/2019 ??? LIPID SCREEN Q5 YR FEMALE (SYSTEM ASSIGNED) 12/31/2020 ??? ADVANCE DIRECTIVE PLANNING Q5 YRS (NO INBASKET) 06/02/2021 ??? COLON CANCER SCREEN (SYSTEM ASSIGNED) 10/27/2022 ??? INFLUENZA VACCINE (SYSTEM ASSIGNED) Addressed ??? DEXA SCAN SCREENING (SYSTEM ASSIGNED) Completed ROS: C: NEGATIVE for fever, chills, change in weight I: NEGATIVE for worrisome rashes, moles or lesions E: NEGATIVE for vision changes or irritation E/M: NEGATIVE for ear, mouth and throat problems R: NEGATIVE for significant cough or SOB B: NEGATIVE for masses, tenderness or discharge CV: NEGATIVE for chest pain, palpitations or peripheral edema GI: See above POSITIVE occasional wet belches (1-2x a year). NEGATIVE for nausea, abdominal pain, orchange in bowel habits : POSITIVE for nocturia 1-2x. NEGATIVE for frequency, or hematuria M: See above NEGATIVE for other significant arthralgias or myalgia N: NEGATIVE for weakness, dizziness or paresthesias E: NEGATIVE for temperature intolerance, hair changes POSITIVE right shoulder and left breast excoriated lesions. H: NEGATIVE for bleeding problems P: NEGATIVE for changes in mood or affect Current Outpatient Prescriptions Medication Sig Dispense Refill ??? atovaquone-proguanil (MALARONE) 250-100 MG per tablet Take 1 tab 2 days before malarial mosquitoexposure, daily while there, and 7 days after. ??? azithromycin (ZITHROMAX) 500 MG tablet Take 1 tab daily as needed for severe traveler's diarrhea ??? PCQ-Hanm-FpRqdu-MgHydr-Simeth (FIRST-MOUTHWASH BLM) SUSP Take 10 mLs by mouth ??? albuterol (PROAIR HFA/PROVENTIL HFA/VENTOLIN HFA) 108 (90 BASE) MCG/ACT Inhaler Inhale 2-4 puffsinto the lungs ??? LISINOPRIL PO Take 10 mg by mouth daily ??? loratadine (CLARITIN) 10 MG tablet Take 10 mg by mouth ??? Cholecalciferol (VITAMIN D3 PO) Take 2,000 Units by mouth daily ??? [place]-3 Fatty Acids (OMEGA ESSENTIALS BASIC) LIQD Take [...] 6 mLs by mouth daily LIPOSOMAL CURCUMIN Stopped taking Lisinopril 5-6 months ago. She reports blood pressure has been WNL Allergies Allergen Reactions ??? Other [No Clinical Screening - See Comments] PN: LW Other1: -latex:nasal congestion, eyes watering. LW Other2: -canteloupe, horses, cats, dust, molds, trees ??? Sulfamethoxazole Heartburn ??? Chlorhexidine Gluconate [Chlorhexidine] Rash ??? Latex Rash Other reaction(s): Other, see comments PN: sneezing, runny nose, This document serves as a record of the services and decisions personally performed and made by GaryL. Hyacinth MD. It was created on his/her behalf by Kim Tian, a trained medical assistant. The creation of this document is based the provider's statements to the medical assistant. Scribe Kim Tian 12:54 PM, January 05, 2017 OBJECTIVE: BP 114/73 (BP Location: Left arm, Patient Position: Chair, Cuff Size: Adult Regular) Pulse 66 Temp 98.4 ??F (36.9 ??C) (Tympanic) Ht 1.676 m (5' 6) Wt 65 kg (143 lb 6.4 oz) SpO2 97% ? No BMI 23.15 kg/m2 Estimated body mass index is 23.15 kg/(m^2) as calculated from the following: Height as of this encounter: 1.676 m (5' 6). Weight as of this encounter: 65 kg (143 lb 6.4 oz). EXAM: GENERAL APPEARANCE: healthy, alert and no [...] without ataxia SKIN: no suspicious lesions or rashes, seborrheic keratoses NEURO: Normal strength and tone, sensory exam grossly normal, mentation intact and speech normal PSYCH: mentation appears normal and affect normal/bright NEURO: paresthesia of the lateral fright thigh, lateral calf and great toe. BACK: nontender, sensitivity at the right SI area, Straight leg negative, DTRs completely WNL except right and left achilles 1+ ASSESSMENT / PLAN: 1. Right hip pain - MR Lumbar Spine w/o Contrast; Future - Urine Microscopic 2. Benign essential hypertension 3. Chronic obstructive pulmonary disease, unspecified COPD type (H) - Spirometry, Breathing Capacity: Normal Order, Clinic Performed 4. Routine general medical examination at a health care facility - UA reflex to Microscopic and Culture - CBC with platelets - Comprehensive metabolic panel - Lipid panel reflex to direct LDL 5. Osteopenia - Vitamin D Deficiency 6. Nonspecific finding on examination of urine - Urine Culture Aerobic Bacterial 7. Acute cystitis without hematuria 8. Urinary tract infection without hematuria, site unspecified Patient wishes to begin therapy after urine culture reports available. A follow-up colonoscopy is ordered. End of Life Planning: Patient currently has an advanced directive: No. I have verified the patient's ablity to prepare an advanced directive/make health care decisions. Literature was provided to assist patient in preparingan advanced directive. COUNSELING: Reviewed preventive health counseling, as reflected in patient instructions Regular exercise Healthy diet/nutrition Estimated body mass index is 23.76 kg/(m^2) as calculated from the following: Height as of 11/05/16: 5' 5.5 (1.664 m). Weight as of 11/05/16: 145 lb (65.8 kg). reports that she is a non-smoker [...] Prophylaxis Lung CA Screening Simon Claros MD [facility] The information in this document, created by the medical assistant for me, accurately reflects the services I personally performed and the decisions made by me. I have reviewed and approved this document for accuracy prior to leaving the patient care area. Simon Claros MD 12:45 PM, 01/05/17 [facility] documented in this encounter Nursing Notes Cadence Ferrera - 01/05/2017 9:00 AM CST Chief Complaint Patient presents with ??? Wellness Visit Initial BP 114/73 (BP Location: Left arm, Patient Position: Chair, Cuff Size: Adult Regular) Pulse 66 Temp 98.4 ??F (36.9 ??C) (Tympanic) Ht 5' 6 (1.676 m) Wt 143 lb 6.4 oz (65 kg) SpO2 97% ? No BMI 23.15 kg/m2 Estimated body mass index is 23.15 kg/(m^2) as calculated from the following: Height as of this encounter: 5' 6 (1.676 m). Weight as of this encounter: 143 lb 6.4 oz (65 kg). Medication Reconciliation: paola Ferrera MA January 05, 2017 9:09 AM [facility] documented in this encounter Plan of Treatment Upcoming Encounters Date Type Specialty Care Team Description 10/26/2022 Lab Oncology Yris Perez MD [address] [address] (Madeleine rk) 11/03/2022 Oncology Visit Oncology Yris Perez MD [address] [address] (Madeleine rk) Scheduled Referrals Name Type Priority Associated Diagnoses Order S chedule GASTROENTEROLOGY ADULT REF Referral Routine Colon cancer O rdered: 01/06/2017 PROCEDURE ONLY screening documented as of this encounter Procedures Procedure Name Priority Date/Time Associated Comments Diagnosis URINE CULTURE Routine 01/05/2017 10:17 Nonspecific finding Res ults for this AM [facility] on examination of procedure are in urine the results section. URINE MICROSCOPIC Routine 01/05/2017 10:03 Right hip pain Resu lts for this AM [facility] procedure are i n the results section. UA MACROSCOPIC WITH Routine 01/05/2017 10:03 Routine general R esults for this REFLEX TO MICROSCOPIC AM [facility] medical examination procedure are in AND CULTURE at a health care the results facility section. VITAMIN D DEFICIENCY Routine 01/05/2017 10:03 Osteopenia Res ults for this SCREENING AM [facility] procedure are i n the results section. LIPID REFLEX TO DIRECT Routine 01/05/2017 10:03 Routine genera l Results for this LDL PANEL AM [facility] medical examination procedur e are in at a health care the results facility section. COMPREHENSIVE Routine 01/05/2017 10:03 Routine general Results for this METABOLIC PANEL AM [facility] medical examination proce dure are in at a health care the results facility section. CBC WITH PLATELETS Routine 01/05/2017 10:03 Routine general Re sults for this AM [facility] medical examination procedur e are in at a health care the results facility section. HC SPIROMETRY, BREATH Routine 01/05/2017 Chronic obstructive Results for this CAPACITY pulmonary disease, procedure are in unspecified COPD the results type (H) section. documented in this encounter Results MR Lumbar Spine w/o Contrast (01/13/2017 10:56 AM [facility]) Anatomical Region Laterality Modality Spine, SUBRAD MR MSK, UMP MR SPINE Magne tic Resonance Specimen (Source) Anatomical Location Collection Method / Collectio n Time Received Time / Laterality Volume Impressions 01/13/2017 4:45 PM [facility] IMPRESSION: 1. Degenerative disc disease T12-L1 with disc bulging and annular fissuring but no direct impingement on n eural structures. 2. Early degenerative disc disease L1-L2 with mild right foraminal stenosis from asymmetric disc bulge or s mall right foraminal protrusion. 3. Early degenerative disc disease at ot her lumbar levels with mild foraminal narrowing and no central steno sis or acute disc protrusion. SHANKAR MIRZA MD Narrative 01/13/2017 4:45 PM [facility] MR LUMBAR SPINE WITHOUT CONTRAST January 13, 2017 10:56 AM HISTORY: Right-sided leg pain with tingl ing, numbness and weakness for eight months. No specific injury. TECHNIQUE: Sagittal T1 and T2 and STIR, axial proton density and T2 images. COMPARISON: None. FINDINGS: Five functional lumbar vertebr al segments are assumed. The caudal thecal sac contents appear intrin sically normal. Alignment in the sagittal plane is normal. Vertebral bone marrow signal is unremarkable. T12-L1: Signal loss and posterior disc b ulging associated with annular fissuring but no acute disc protrusion o r central or foraminal stenosis. L1-L2: Signal loss without disc space na rrowing. There is an asymmetric right posterolateral disc bul ge or small broad-based foraminal disc protrusion resulting in m ild right foraminal stenosis. No central or left foraminal stenosis. P osterior facets are normal. L2-L3: Signal loss without disc space na rrowing. Mild diffuse disc bulging which is slightly asymmetric pos terolaterally on the left resulting in mild left foraminal stenosi s. No central stenosis. Minimal right foraminal narrowing. Poste rior facets are normal. L3-L4: Signal loss, minimal disc space n arrowing and diffuse disc bulging associated with mild annular fis suring without disc protrusion or central stenosis. Very mild bilateral foraminal narrowing. Posterior facets are unremarkable. L4-L5: Signal loss without disc space na rrowing. No significant disc bulge/protrusion or central or foraminal stenosis. Minimal posterior facet degenerative changes. L5-S1: Signal loss without disc space na rrowing and no disc bulge/protrusion or central or foraminal stenosis. Minimal posterior facet degenerative change on the right. Procedure Note Shankar Mirza MD - 01/13/2017Fo rmatting of this note might be different from the original. MR LUMBAR SPINE WITHOUT CONTRAST January 10:56 AM HISTORY: Right-sided leg pain with tingl ing, numbness and weakness for eight months. No specific injury. TECHNIQUE: Sagittal T1 and T2 and STIR, axial proton density and T2 images. COMPARISON: None. FINDINGS: Five functional lumbar vertebr al segments are assumed. The caudal thecal sac contents appear intrin sically normal. Alignment in the sagittal plane is normal. Vertebral bone marrow signal is unremarkable. T12-L1: Signal loss and posterior disc b ulging associated with annular fissuring but no acute disc protrusion o r central or foraminal stenosis. L1-L2: Signal loss without disc space na rrowing. There is an asymmetric right posterolateral disc bul ge or small broad-based foraminal disc protrusion resulting in m ild right foraminal stenosis. No central or left foraminal stenosis. P osterior facets are normal. L2-L3: Signal loss without disc space na rrowing. Mild diffuse disc bulging which is slightly asymmetric pos terolaterally on the left resulting in mild left foraminal stenosi s. No central stenosis. Minimal right foraminal narrowing. Poste rior facets are normal. L3-L4: Signal loss, minimal disc space n arrowing and diffuse disc bulging associated with mild annular fis suring without disc protrusion or central stenosis. Very mild bilateral foraminal narrowing. Posterior facets are unremarkable. L4-L5: Signal loss without disc space na rrowing. No significant disc bulge/protrusion or central or foraminal stenosis. Minimal posterior facet degenerative changes. L5-S1: Signal loss without disc space na rrowing and no disc bulge/protrusion or central or foraminal stenosis. Minimal posterior facet degenerative change on the right. IMPRESSION: 1. Degenerative disc disease T12-L1 with disc bulging and annular fissuring but no direct impingement on n eural structures. 2. Early degenerative disc disease L1-L2 with mild right foraminal stenosis from asymmetric disc bulge or s mall right foraminal protrusion. 3. Early degenerative disc disease at ot her lumbar levels with mild foraminal narrowing and no central steno sis or acute disc protrusion. SHANKAR MIRZA MD Simon Claros MD IMG MRI ORDERABLES (ABNORMAL) Urine Culture Aerobic Bacterial (01/05/2017 10:17 AM [facility]) Component Value Ref Test Analysis Performed At [facility] Range Method Time Signature Specimen Midstream Urine [facility] Culture Micro >100,000 colonies/mL Escherichia coli ESBL INFECTIOUS 10,000 to 50,000 colonies/mL Strain 2 Escherichia coli ESBL DISEASE ESBL (extended beta lactamas e) producing organisms require contact precautions. DIAGNOSTIC (A) LABORATORY Micro Report FINAL INFECTIOUS Status 01/09/2017 DISEASE DIAGNOSTIC LABORATORY Organism: >100,000 INFECTIOUS colonies/mL DISEASE Escherichia DIAGNOSTIC coli ESBL LABORATORY Organism: 10,000 to INFECTIOUS 50,000 DISEASE colonies/mL DIAGNOSTIC Strain 2 LABORATORY Escherichia coli ESBL Specimen Anatomical Collection Method Collection Time Receive d Time (Source) Location / / Volume Laterality Urine specimen 01/05/2017 10:17 7 (specimen) AM [facility] 10:18 AM [facility] Organism Antibiotic Method Susceptibility >100,000 colonies/ml Ampicillin >=32 Resist ant ug/mL escherichia coli esbl (veronika) >100,000 colonies/ml Cefazolin >=64 Resist ant escherichia coli esbl Cefazolin VERONIKA breakpoints (veronika) are for the felipe tment of uncomplicated ur inary tract infections. ??F or the treatment of sys temic infections, plea se contact the laboratory for additional testing. ug/mL >100,000 colonies/ml Cefoxitin <=4 Suscept ible ug/mL escherichia coli esbl (veronika) >100,000 colonies/ml Ceftazidime >64.0 Resis tant ug/mL escherichia coli esbl (veronika) >100,000 colonies/ml Ceftriaxone >64.0 Resis tant ug/mL escherichia coli esbl (veronika) >100,000 colonies/ml Ciprofloxacin >=4 Resista nt ug/mL escherichia coli esbl (veronika) >100,000 colonies/ml Gentamicin <=1 Suscept ible ug/mL escherichia coli esbl (veronika) >100,000 colonies/ml Levofloxacin >=8 Resista nt ug/mL escherichia coli esbl (veronika) >100,000 colonies/ml Nitrofurantoin <=16 Suscep tible ug/mL escherichia coli esbl (veronika) >100,000 colonies/ml Tobramycin <=1 Suscept ible ug/mL escherichia coli esbl (veronika) >100,000 colonies/ml Trimethoprim/Sulfamethoxazo >=16/304 Resistant ug/mL escherichia coli esbl le (veronika) >100,000 colonies/ml Ampicillin/Sulbactam 4 Susc eptible ug/mL escherichia coli esbl (veronika) >100,000 colonies/ml Piperacillin/Tazo <=4 Susce ptible ug/mL escherichia coli esbl (veronika) >100,000 colonies/ml Amikacin <=2 Suscept ible ug/mL escherichia coli esbl (veronika) >100,000 colonies/ml Cefepime >64.0 Resis tant ug/mL escherichia coli esbl (veronika) >100,000 colonies/ml Meropenem <=0.25 Susc eptible ug/mL escherichia coli esbl (veronika) >100,000 colonies/ml Ertapenem 0.006 Susce ptible ug/mL escherichia coli esbl (veronika) 10,000 to 50,000 Ampicillin >=32 Resistant ug/mL colonies/ml strain 2 escherichia coli esbl (veronika) 10,000 to 50,000 Cefazolin >=64 Resistant colonies/ml strain 2 Cefazolin M IC breakpoints escherichia coli esbl are for th e treatment of (veronika) uncomplicated ur inary tract infections. ??F or the treatment of sys temic infections, plea se contact the laboratory for additional testing. ug/mL 10,000 to 50,000 Cefoxitin <=4 Susceptible ug/mL colonies/ml strain 2 escherichia coli esbl (veronika) 10,000 to 50,000 Ceftazidime >64.0 Resistant ug/mL colonies/ml strain 2 escherichia coli esbl (veronika) 10,000 to 50,000 Ceftriaxone >64.0 Resistant ug/mL colonies/ml strain 2 escherichia coli esbl (veronika) 10,000 to 50,000 Ciprofloxacin >=4 Resistant u g/mL colonies/ml strain 2 escherichia coli esbl (veronika) 10,000 to 50,000 Gentamicin <=1 Susceptible ug/mL colonies/ml strain 2 escherichia coli esbl (veronika) 10,000 to 50,000 Levofloxacin >=8 Resistant u g/mL colonies/ml strain 2 escherichia coli esbl (veronika) 10,000 to 50,000 Nitrofurantoin <=16 Susceptibl e ug/mL colonies/ml strain 2 escherichia coli esbl (veronika) 10,000 to 50,000 Tobramycin <=1 Susceptible ug/mL colonies/ml strain 2 escherichia coli esbl (veronika) 10,000 to 50,000 Trimethoprim/Sulfamethoxazo >=1 6/304 Resistant ug/mL colonies/ml strain 2 le escherichia coli esbl (veronika) 10,000 to 50,000 Ampicillin/Sulbactam 4 Suscepti ble ug/mL colonies/ml strain 2 escherichia coli esbl (veronika) 10,000 to 50,000 Piperacillin/Tazo <=4 Susceptib le ug/mL colonies/ml strain 2 escherichia coli esbl (veronika) 10,000 to 50,000 Amikacin 4 Susceptible u g/mL colonies/ml strain 2 escherichia coli esbl (veronika) 10,000 to 50,000 Cefepime >64.0 Resistant ug/mL colonies/ml strain 2 escherichia coli esbl (veronika) 10,000 to 50,000 Meropenem <=0.25 Suscepti ble ug/mL colonies/ml strain 2 escherichia coli esbl (veronika) 10,000 to 50,000 Ertapenem 0.023 Susceptib le ug/mL colonies/ml strain 2 escherichia coli esbl (veronika) Simon Claros MD LAB - MICRO GENERAL ORDERABL ES Performing Organization Address City/State/ZIP Code Phon e Number INFECTIOUS DISEASES [address] [place] [address] [facility], [place] [address] [place] [address] 150 INFECTIOUS DISEASE [address] [place], [place] [address] (ABNORMAL) Urine Microscopic (01/05/2017 10:03 AM [facility]) athologist Signature WBC Urine >100 (A) 0 - 2 /HPF [facility] RBC Urine 2-5 (A) 0 - 2 /HPF [facility] Bacteria Urine Many (A) NEG /HPF [facility] Specimen Anatomical Collection Method Collection Time Receive d Time (Source) Location / / Volume Laterality 01/05/2017 10:03 01/05/2017 AM GLASS SANDER BELT 10:04 AM GLASS SANDER BELT Simon Claros MD LAB - URINE ORDERABLES Performing Organization Address City/[facility] [address]/ZIP Code Phon e Number [facility] [address] [place] [address] Vitamin D Deficiency (01/05/2017 10:03 AM GLASS SANDER BELT) athologist Signature Vitamin D 37 20 - 75 [facility] Deficiency ug/L [place] [facility] screening [facility] Comment: Season, race, dietary intake, and treatm ent affect the concentration of 05-cezvncq-Oypakvz D. Values may decrea se during winter months and increase during summer months. Values 20-29 ug/L may indicate Vitamin D insufficiency and values <20 ug/L may indicate Vitami n D deficiency. Vitamin D determination is routinely pe rformed by an immunoassay specific for 25 hydroxyvitamin D3. ??If an individua l is on vitamin D2 (ergocalciferol) supplementation, please specify 25 OH v itamin D2 and D3 level determination by LCMSMS test VITD23. Specimen Anatomical Collection Method Collection Time Receive d Time (Source) Location / / Volume Laterality Blood specimen 01/05/2017 10: 7 (specimen) AM GLASS SANDER BELT 10:04 AM GLASS SANDER BELT Simon Claros MD LAB - BLOOD ORDERABLES Performing Organization Address City/State/ZIP Code Phon e Number [facility] [address] [place] [address] [facility] (ABNORMAL) Lipid panel reflex to direct LDL (01/05/2017 10:03 AM GLASS SANDER BELT) athologist Signature Cholesterol 225 (H) <200 mg/dL [facility] Comment: Desirable: <200 mg/dl Triglycerides 103 <150 mg/dL [facility] Comment: Fasting specimen HDL Cholesterol 67 >49 mg/dL [place] [facility] LDL Cholesterol Calculated 137 (H) <100 mg/dL [facility] Comment: Above desirable: ??100-129 mg/dl Borderline High: ??130-159 mg/dL High: ? 160-189 mg/dL Very high: ? >189 mg/dl Non HDL Cholesterol 158 (H) <130 mg/dL [facility] Comment: Above Desirable: ??130-159 mg/dl Borderline high: ??160-189 mg/dl High: ? 190-219 mg/dl Very high: ? >219 mg/dl Specimen Anatomical Collection Method Collection Time Receive d Time (Source) Location / / Volume Laterality Blood specimen 01/05/2017 10:03 7 (specimen) AM GLASS SANDER BELT 10:04 AM GLASS SANDER BELT Simon Claros MD LAB - BLOOD ORDERABLES Performing Organization Address City/State/ZIP Code Phon e Number [facility] [address] [place] [address] (ABNORMAL) Comprehensive metabolic panel (01/05/2017 10:03 AM GLASS SANDER BELT) Analysis Performed At Patho logist Time Signature Sodium 139 133 - 144 [place] mmol/L [facility] Potassium 4.6 3.4 - 5.3 [place] mmol/L [facility] Chloride 104 94 - 109 [place] mmol/L [facility] Carbon Dioxide 30 20 - 32 [place] mmol/L [facility] Anion Gap 5 3 - 14 [place] mmol/L [facility] Glucose 104 (H) 70 - 99 [place] mg/dL [facility] Comment: Fasting specimen Urea Nitrogen 13 7 - 30 mg/dL [place] [facility] Creatinine 0.93 0.52 - 1.04 mg/dL [place] [facility] GFR Estimate 60 (L) >60 mL/min/1.7m2 [place] [facility] Comment: Non GFR Calc GFR Estimate If Black 72 >60 mL/min/1.7m2 F [facility] Comment: GFR Calc Calcium 9.4 8.5 - 10.1 mg/dL [place] [facility] Bilirubin Total 0.6 0.2 - 1.3 mg/dL [facility] Albumin 3.9 3.4 - 5.0 g/dL [facility] S [facility] Protein Total 7.4 6.8 - 8.8 g/dL [place] [facility] Alkaline Phosphatase 97 40 - 150 U/L [facility] ALT 29 0 - 50 U/L [facility] AST 18 0 - 45 U/L [facility] Specimen Anatomical Collection Method Collection Time Receive d Time (Source) Location / / Volume Laterality Blood specimen 01/05/2017 10: 7 (specimen) AM GLASS SANDER BELT 10:04 AM GLASS SANDER BELT Simon Claros MD LAB - BLOOD ORDERABLES Performing Organization Address City/State/ZIP Code Phon e Number [facility] [address] [place] [address] CBC with platelets (01/05/2017 10:03 AM GLASS SANDER BELT) P athologist Signature WBC 7.1 4.0 - 11.0 [place] 10e9/L [facility] RBC Count 4.88 3.8 - 5.2 [place] 10e12/L [facility] Hemoglobin 14.9 11.7 - [place] 15.7 g/dL [facility] Hematocrit 44.5 35.0 - [place] 47.0 % [facility] MCV 91 78 - 100 [facility] MCH 30.5 26.5 - [place] 33.0 pg [facility] MCHC 33.5 31.5 - [place] 36.5 g/dL [facility] RDW 14.3 10.0 - [facility] 15.0 % [facility] Platelet Count 238 150 - 450 [place] 10e9/L [facility] Specimen Anatomical Collection Method Collection Time Receive d Time (Source) Location / / Volume Laterality Blood specimen 01/05/2017 10: 7 (specimen) AM GLASS SANDER BELT 10:04 AM GLASS SANDER BELT Simon Claros MD LAB - BLOOD ORDERABLES Performing Organization Address [facility] [address]/[facility] e Number [address] [place] [address] (ABNORMAL) UA reflex to Microscopic and Culture (01/05/2017 10:03 AM GLASS SANDER BELT) [facility] gist Method Time Signature Color Urine Yellow [facility] Appearance Urine Cloudy [facility] Glucose Urine Negative NEG mg/dL [facility]A Bilirubin Urine Negative NEG [facility] Ketones Urine Negative NEG mg/dL [facility] Specific [place] 1.015 1.003 - [place] Urine 1.035 [facility] Blood Urine Moderate (A) NEG [facility] pH Urine 7.0 5.0 - 7.0 [place] pH [facility] Protein Albumin Negative NEG mg/dL [place] Urine [facility] Urobilinogen 0.2 0.2 - 1.0 [place] Urine EU/dL [facility] Nitrite Urine Positive (A) NEG [facility] Leukocyte Large (A) NEG [place] Esterase Urine [facility] Source Midstream [place] U[facility] Specimen Anatomical Collection Method Collection Time Receive d Time (Source) Location / / Volume Laterality Urine specimen 01/05/2017 10:03 7 (specimen) AM GLASS SANDER BELT 10:04 AM GLASS SANDER BELT Simon Claros MD LAB - URINE ORDERABLES Performing Organization Address [facility] [address]/[facility] Code [facility] e Number [address] [place] [address] Spirometry, Breathing Capacity: Normal Order, Clinic Performed (01/05/2017) athologist Signature FEV-1 FVC FEV1/FVC FEF 25/75 Narrative This result has an attachment that is no t available. Simon Claros MD PROCEDURES documented in this encounter Visit Diagnoses Diagnosis Right hip pain - Primary Pain in joint, pelvic region and thigh Benign essential hypertension Essential hypertension, benign Chronic obstructive pulmonary disease, u nspecified COPD type (H) Routine general medical examination at a health care facility Osteopenia Disorder of bone and cartilage, unspecif ied Nonspecific finding on examination of ur ine Other nonspecific finding on examination of urine Acute cystitis without hematuria Acute cystitis Urinary tract infection without hematuri a, site unspecified Colon cancer screening Special screening for malignant neoplasm s, colon Right hip pain Pain in joint, pelvic region and thigh documented in this encounter Additional Health Concerns Infection Onset Date Last Indicated Resolved Time 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, 01/08/2017 9 06/08/17, 08/26/17 documented as of this encounter Care Teams Beveling Machine Operator Relationship Specialty Start Date End [...]
--- OUTSIDE RECORDS SUMMARY | 2022-08-20 14:29 | XMS_ITS | Encounter Summary ---
:1945 Author Organization [place] Address [address] [place] [address] Care Team Providers Name Role Phone Simon Claros MD Primary Care Provider Simon Claros MD Unavailable Simon Claros MD Unavailable Reason for Visit (Routine) - Closed Specialty Diagnoses / Procedures Referred By Contact Refer red To Contact Radiology / Radiology. Diagnoses Rocco BECKER callback Sh Breast Imaging Procedures US BREAST RT LMT 1-3 [facility] [address] [facility], [address] [place] [address] Phone: Referral ID Status Reason Start Date Expiration Date Visits Requ ested Visits Authorized [id number] Closed 01/21/2017 01/21/2018 1 1 Encounter Details Date Type Department Care Team Description 01/25/2017 Hospital Encounter [facility] Simon Claros, Abnormal mammogram Rocco Breast MD [place] [address] [facility] [address], [address] [place] [phone] Social History Tobacco Use Types Packs/Day Years [...] by mouth 0 10/2017 daily LIPOSOMAL CURCUMIN [place]-3 Fatty Acids Take 6 mLs by mouth 0 08/26/2017 (OMEGA ESSENTIALS BASIC) daily LIQD documented as of this encounter Plan of Treatment Upcoming Encounters Date Type Specialty Care Team Description 10/26/2022 Lab Oncology Yris Perez MD [address] [place] [id number] (Wo rk) 11/03/2022 Oncology Visit Oncology Yris Perez MD [address] [place] [address] [phone] (Wo rk) documented as of this encounter Visit Diagnoses Diagnosis Abnormal mammogram Abnormal mammogram, unspecified documented in this encounter Additional Health Concerns Infection Onset Date Last Indicated Resolved Time 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, 01/08/2017 9 06/08/17, 08/26/17 documented as of this encounter Care Teams Grooming Assistant Relationship Specialty Start Date End Date Simon Claros MD PCP - General Internal Medicine 09/22/12 08/20/21 Simon Claros MD PCP - Assigned PCP 06/18/16 01/17/19 [address] [place] [phone] Simon Claros MD Assigned PCP 06/18/16 03/01/21 [address] [place] [phone] documented as of this encounter
--- OUTSIDE RECORDS SUMMARY | 2022-08-20 14:29 | XMS_ITS | Encounter Summary ---
:1945 Author Organization [place] Address [address] [place] [address] Care Team Providers Name Role Phone Simon Claros MD Primary Care Provider Simon Claros MD Unavailable Simon Claros MD Unavailable Reason for Visit Reason Onset Date Comments Orders 01/18/2017 that need to be sign ed Encounter Details Date Type Department Care Team Description 01/18/2017 Telephone [facility] Simon Claros, Orders (that need to be Clinic [facility] HINES signed) [address] [facility], [address] [facility] [address] [place] [address] [facility] [place] [phone] Social History Tobacco Use Types Packs/Day Years Used Date Passive Smoke Exposure - Never Smoker Smokeless Tobacco: Never Used Alcohol Use Standard Drinks/Week Comments No 0 (1 standard drink = 0.6 oz pure alcoho l) Sex Assigned at Date Recorded Female 01/27/2022 12:36 PM CDT documented as of this encounter Miscellaneous Notes Telephone Encounter - Eddie Nielsen MD - 01/19/2017 8:20 AM SAFETY COMPANION Done Thank you Eddie Nielsen M.D. [employer] Telephone Encounter - Leeann Littlejohn RN - 01/19/2017 8:04 AM CST DOD, Please look in the Cosigned orders section of [facility] box, under [place], and sign those orders. They were sent over by [facility][1]. Leeann Littlejohn RN [employer]Y COMPANION Telephone Encounter - Libra Siddiqui - 01/19/2017 7:52 AM CST [facility][1] called again asking If anyone else can sign the orders For this patient since dr Claros Is out of the office [employer]Y COMPANION Telephone Encounter - Kim King RN - 01/18/2017 9:44 AM SAFETY COMPANION Please sign orders entered by [facility][1] so they can contact patient and schedule appointment. Kim Haynes RN Triage [employer] Workforce TY COMPANION Telephone Encounter - Shelia Garcia - 01/18/2017 8:00 AM CST Reason for Call: Other orders Detailed comments: [facility][1] is calling and they needs to orders that They put in signed so they can do the tests. Then they can schedule the test and the US. Phone Number Patient can be reached at: [phone] [facility] center number Best Time: antime Can we leave a detailed message on this number? YES Call taken on 01/18/2017 at 8:00 AM by Shelia Garcia TY COMPANION documented in this encounter Plan of Treatment Upcoming Encounters Date Type Specialty Care Team Description 10/26/2022 Lab Oncology Yris Perez MD [address] [phone] (Wo rk) 11/03/2022 Oncology Visit Oncology Yris Perez MD [address] [facility] [address] [place], [place] [phone] (Wo rk) documented as of this encounter Visit Diagnoses Not on filedocumented in this encounter Additional Health Concerns Infection Onset Date Last Indicated Resolved Time 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, 01/08/2017 9 06/08/17, 08/26/17 documented as of this encounter Care Teams Cobol Mainframe Developer Relationship Specialty Start Date End Date Simon Claros MD PCP - General Internal Medicine 09/22/12 08/20/21 Simon Claros MD PCP - Assigned PCP 06/18/16 01/17/19 [address] [place] [phone] Simon Claros MD Assigned PCP 06/18/16 03/01/21 [address] [place] [phone] documented as of this encounter
--- OUTSIDE RECORDS SUMMARY | 2022-08-20 14:29 | XMS_ITS | Encounter Summary ---
:1945 Author Organization [place] Address [address] [place] [address] Care Team Providers Name Role Phone Simon Claros MD Primary Care Provider Simon Claros MD Unavailable Simon Claros MD Unavailable Reason for Visit Reason Comments Mass Encounter Details Date Type Department Care Team Description 07/03/2016 Office Visit [facility] Simon Claros, Synovi al cyst (Primary Dx); [facility] Primary osteoarthritis involving multipl e joints; [address] Seasonal asthma; [facility], [address] Benign essential hypertension [place] [address] [place] [place] [phone] Social History Tobacco Use Types Packs/Day Years Used Date Passive Smoke Exposure - Never Smoker Smokeless Tobacco: Never Used Alcohol Use Standard Drinks/Week Comments No 0 (1 standard drink = 0.6 oz pure alcoho l) Sex Assigned at Date Recorded Female 01/27/2022 12:36 PM CDT documented as of this encounter Last Filed Vital Signs Vital Sign Reading Time Taken Comments Blood Pressure 122/70 07/03/2016 12:37 PM CDT Pulse 73 07/03/2016 12:37 PM CDT Temperature 36.6 ??C (97.9 ??F) 07/03/2016 12:37 PM CDT Respiratory Rate - - Oxygen Saturation 99% 07/03/2016 12:37 PM CDT Inhaled Oxygen Concentration - - Weight 67.9 kg (149 lb 9.6 oz) 07/03/2016 12:37 PM CDT Height 166.4 cm (5' 5.5) 07/03/2016 12:37 PM CDT Body Mass Index 24.52 07/03/2016 12:37 PM CDT documented in this encounter Progress Notes Simon Claros MD - 07/02/2016 5:11 PM CDT SUBJECTIVE: Darshana Brooks is a 70 year old female who presents to clinic today for the following health issues: Noel presents for follow-up ongoing healthcare. She is followed for osteoarthritis and seasonal asthma. Patient presents with a two-month history of pain in the PIP joint of her right hand which is been present for the last two months. Associated with this pain she seems to have some associated swelling.The pain seems to be more prominent when she is using her thumb typing or pushing off to get out of a chair. Interesting it began two months ago during the onset of having had her hip replaced which has caused her to be pushing off more regularly to go from a sitting to a standing position. There is no history of foreign bodies or trauma she denies any repetitive activities other than typing. MASS ON THUMB ?? Duration: x2-3 months possibly longer ?? Description (location/character/radiation): right hand, inside area of inner thumb ?? Intensity: mild, moderate ?? Accompanying signs and symptoms: swelling on a specific area ?? History (similar episodes/previous evaluation): None ?? Precipitating or alleviating factors: None ?? Therapies tried and outcome: None Medication Followup of Lisinopril 10mg daily ?? Taking Medication as prescribed: yes ?? Side Effects: Unsure- Patient states that since starting med she has had few instances of 'feeling like she was going to black out'. ?? Medication Helping Symptoms: yes Problem list and histories reviewed & adjusted, as indicated. Additional history: Current Outpatient Prescriptions Medication Sig Dispense Refill ??? LISINOPRIL PO Take 10 mg by mouth daily ??? loratadine (CLARITIN) 10 MG tablet Take 10 mg by mouth ??? Cholecalciferol (VITAMIN D3 PO) Take 2,000 Units by mouth daily ??? [place]-3 Fatty Acids (OMEGA ESSENTIALS BASIC) LIQD Take [...] 6 mLs by mouth daily LIPOSOMAL CURCUMIN ROS: Constitutional, HEENT, cardiovascular, pulmonary, gi and gu systems are negative, except as otherwise noted. OBJECTIVE: BP 122/70 mmHg Pulse 73 Temp(Src) 97.9 ??F (36.6 ??C) (Tympanic) Ht 5' 5.5 (1.664 m) Wt 149lb 9.6 oz (67.858 kg) BMI 24.51 kg/m2 SpO2 99% ? No Body mass index is 24.51 kg/(m^2). Chest clear Cardiovascular S1 and S2 are physiologic Abdomen without hepatomegaly or splenomegaly Extremity nontender without any edema Hands show minimal Habedlans Nodes Her right first PIP joint shows a small synovial cyst connected to this joint there is no erythema or induration or other signs of infection or foreign body. ASSESSMENT/PLAN: 1. Synovial cyst I'm she is requested to avoid repetitive activities. She is also going to begin taking naproxen 500 mg b.i.d. with food. If there is no improvement in the next couple of weeks and she'll return to clinic for follow-up steroid injection. 2. Primary osteoarthritis involving multiple joints 3. Seasonal asthma 4HTN No change in her current drugs Simon Claros MD [facility] documented in this encounter Nursing Notes Twila Jansen, SKIDDER DRIVER - 07/03/2016 12:39 PM CDT Chief Complaint Patient presents with ??? Mass Initial BP 122/70 mmHg Pulse 73 Temp(Src) 97.9 ??F (36.6 ??C) (Tympanic) Ht 5' 5.5 (1.664 m) Wt 149 lb 9.6 oz (67.858 kg) BMI 24.51 kg/m2 SpO2 99% ? No Estimated body mass index is 24.51 kg/(m^2) as calculated from the following: Height as of this encounter: 5' 5.5 (1.664 m). Weight as of this encounter: 149 lb 9.6 oz (67.858 kg). BP completed using cuff size: regular right arm Cathleen Justyna- HERBIE documented in this encounter Plan of Treatment Upcoming Encounters Date Type Specialty Care Team Description 10/26/2022 Lab Oncology Yris Perez MD [address] [place] [phone] (Wo rk) 11/03/2022 Oncology Visit Oncology Yris Perez MD [address] [place] [address] [phone] (Wo rk) documented as of this encounter Visit Diagnoses Diagnosis Synovial cyst - Primary Synovial cyst, unspecified Primary osteoarthritis involving multipl e joints Seasonal asthma Unspecified asthma Benign essential hypertension Essential hypertension, benign documented in this encounter Care Teams Field Services Director Relationship Specialty Start Date End Date Simon Claros MD PCP - General Internal Medicine 09/22/12 08/20/21 Simon Claros MD PCP - Assigned PCP 06/18/16 01/17/19 [address] [place] [phone] Simon Claros MD Assigned PCP 06/18/16 03/01/21 [address] [place] [phone] documented as of this encounter
--- OUTSIDE RECORDS SUMMARY | 2022-08-20 14:29 | XMS_ITS | Encounter Summary ---
:1945 Author Organization [place] Address [address] [place] [address] Care Team Providers Name Role Phone Simon Claros MD Primary Care Provider Reason for Visit Auth/Cert Specialty Diagnoses / Procedures Referred By Contact Refer red To Contact Surgery Diagnoses RIGHT HIP DJD Sh Periop Services Procedures ARTHROPLASTY HIP ANTERIOR [address], [address] [place] [address] Phone: Referral ID Status Reason Start Date Expiration Date Visits Requ ested Visits Authorized [id number] 1 1 Encounter Details Date Type Department Care Team Description 03/10/2016 - Hospital Encounter [facility] Andrey Estevez hip pain 03/11/2016 Rocco Bearden MD (Primary Dx) Specialty Unit [facility] [address] [facility] [place], [place] [address] [id number] [address] [place] [address] Social History Tobacco Use Types Packs/Day Years Used Date Passive Smoke Exposure - Never Smoker Alcohol Use Standard Drinks/Week Comments No 0 (1 standard drink = 0.6 oz pure alcoho l) Sex Assigned at Date Recorded Female 01/27/2022 12:36 PM CDT documented as of this encounter Last Filed Vital Signs Vital Sign Reading Time Taken Comments Blood Pressure 110/54 03/11/2016 11:54 AM CDT Pulse 85 03/11/2016 11:54 AM CDT Temperature 36.7 ??C (98 ??F) 03/11/2016 11:54 AM CDT Respiratory Rate 16 03/11/2016 11:54 AM CDT Oxygen Saturation 98% 03/11/2016 11:54 AM CDT Inhaled Oxygen Concentration - - Weight 68.2 kg (150 lb 4.8 oz) 03/10/2016 9:00 AM CDT Height 167.6 cm (5' 6) 03/10/2016 9:00 AM CDT Body Mass Index 24.26 03/10/2016 9:00 AM CDT documented in this encounter Discharge Summaries Zari Peterson PA-C - 03/13/2016 2:13 PM CDT Discharge Summary Darshana Brooks Date of : 1945 Age: [age] year old Date of Admission: 03/10/2016 Date of Discharge: 03/13/2016 Reason for Admission: Darshana Brooks is an 70 year old female who was admitted to the hospital following surgery with Dr. Andrey Sullivan. Preoperative Diagnosis: RIGHT HIP DJD Postoperative Diagnosis: RIGHT HIP DJD Procedure Completed: right total hip arthroplasty Hospital Course: Ms. Brooks was admitted and underwent the above procedure. The patient tolerated the procedure well. There were no complications. Following surgery she was admitted to the floor. During her stay she did not require any blood transfusions. Her last hemoglobin was noted to be HGB 10.7 03/11/2016. Her pain w as controlled with oral pain medication. During her stay she progressed well in physical therapy andall the therapy goals were met. Discharge Physical Exam: BP 110/54 mmHg Pulse 85 Temp(Src) 98 ??F (36.7 ??C) (Oral) Resp 16 Ht 1.676 m (5' 6) Wt 68.176 kg (150 lb 4.8 oz) BMI 24.27 kg/m2 SpO2 98% LMP Neurovascularly intact, distal pulses present bilaterally. Calves are negative bilaterally, both soft and nontender. The wound looks good with minimal erythema of the surrounding skin. Assessment: Ms. Brooks is stable and doing well status post right total hip arthroplasty on POD #1. Plan: We will discharge her home on analgesics and deep venous thrombosis prophylaxis. She will follow-up with Dr. Andrey Sullivan approximately 2 weeks from surgery. She may call [phone] to schedulean appointment. Meds: Darshana Brooks [place] Medication Instructions [place]:[id number] Printed on:04/07/16 8394 Medication Information albuterol (PROAIR HFA, PROVENTIL HFA, VENTOLIN HFA) 108 (90 BASE) MCG/ACT inhaler Inhale 2 puffs into the lungs 2 times daily aspirin EC 325 MG tablet Take 1 tablet (325 mg) by mouth 2 times daily Cholecalciferol (VITAMIN D3 PO) Take 2,000 Units by mouth daily CIPROFLOXACIN PO Take 500 mg by mouth 2 times daily 7-Day Course (not yet complete) picked up from pharmacy on 03/05/16 LISINOPRIL PO Take 10 mg by mouth daily loratadine (CLARITIN) 10 MG tablet Take 10 mg by mouth Naproxen Sodium (ALEVE PO) Take 220-440 mg by mouth 2 times daily as needed for moderate pain NONFORMULARY Take 1 Tablespoonful by mouth daily ALL NATURAL GREENS NONFORMULARY Take 29 mLs by mouth daily LIQUIDRIVE ANTIOXIDENT (1 ounce) NONFORMULARY Take 5 mLs by mouth daily LIPOSOMAL GLUTATHIONE NONFORMULARY Take 6 mLs by mouth daily LIPOSOMAL CURCUMIN [place]-3 Fatty Acids (OMEGA ESSENTIALS BASIC) LIQD Take 6 mLs by mouth daily oxyCODONE (ROXICODONE) 5 MG immediate release tablet Take 1-2 tablets (5-10 mg) by mouth every 4 hours as needed for moderate to severe pain senna-docusate (SENOKOT-S;PERICOLACE) 8.6-50 MG per tablet Take 1-2 tablets by mouth 2 times daily as needed for constipation Associated attestation - Andrey Estevez MD - 04/07/2016 2:23 PM CDT As above Agree with plan ANDREY ESTEVEZ M.D. documented in this encounter Discharge Instructions Discharge InstructionsAshley Hennessy RN - 03/11/2016 2:43 PM CDT .Discharge Instructions Following a Total Hip Arthroplasty Dr. Andrey Mcwilliams Activity Level: 1. Physical activity may be resumed gradually according to your comfort level and your surgeon's instructions. IF you have had a cementless prosthesis implanted you will be 50% of weight bearing for 6 weeks utilizing crutches or a walker for walking/activity. If you have had a cemented hip implanted you may bear as much weight as tolerated beginning your first day post operative day. 2. Follow your exercise program as instructed by your therapist, do your exercises at least twice a day. The need for formal therapy beyond these exercises will be addressed at your first post op appointment. 3. Do not cross your legs. Do not bend at the waist beyond 90 degrees. Do not rotate your operated leg in. When home, sleep on your back or on the operated side with a pillow between your legs. Do not cross your operated leg past the midline of your body. 4. It is helpful to ice your hip after exercises or activity to decrease swelling and discomfort. Good Health Practices: 1. Maintain an adequate fluid intake and eat a well balanced diet to promote healing. 2. Surgery, decreased activity and pain medication all contribute to a decrease in bowel activity that can result in constipation. It is recommended that you increase your fluid intake, add fiber to your diet, and add an over the counter laxative to your daily schedule if you experience these problems. 3. Wear your SOFY stockings day and night until seen by your surgeon. Remove twice daily for one hour. You may hand wash and air dry your socks. 4. Change your dressing everyday until seen by your doctor. The incision needs to be kept dry duringshowers, we recommend securing a plastic bag over your dressing and then changing the dressing afteryour bath or shower. Things to Watch For: Check your incision daily for increased redness, swelling, or drainage along the incision line. If these occur, please notify your doctor. Also, call if you develop a fever above 101 degrees. Follow Up: You should call to make an appointment for 14-16 days for the date of surgery. The maureen must remain in for at least 14 days and will be removed at this appointment. Call [phone] to schedule your appointment. Dr Claros wants patient to follow up with him next or after discharge. ( March 25 or . ) Nurse Signature: Date: Time: Patient Signature: Date: documented in this encounter Medications at Time of Discharge Medication Sig Dispensed Refills Start Date End Date Cholecalciferol (VITAMIN Take 2,000 Units by 0 D3 PO) mouth daily loratadine (CLARITIN) 10 Take 10 mg by mouth 0 MG tablet aspirin EC 325 MG Take 1 tablet (325 70 tablet 0 03/11/2016 04/15/2016 tabletIndications: Right mg) by mouth 2 times hip pain daily albuterol (PROAIR HFA, Inhale 2 puffs into 0 02/03/2017 PROVENTIL HFA, VENTOLIN the lungs 2 times HFA) 108 (90 BASE) daily as needed MCG/ACT inhaler CIPROFLOXACIN Take 500 mg by mouth 0 0 07/03/2016 POIndications: Bladder 2 times daily 7-Day Infection Course (not yet complete) picked up from pharmacy on 03/05/16 ARH-Vbag-DxPnpe-MgHydr-S Take 10 mLs by mouth 0 0 07/17/2012 01/25/2017 imeth (FIRST-MOUTHWASH BLM) SUSP LISINOPRIL PO Take 10 mg by mouth 0 daily Naproxen Sodium (ALEVE Take 220-440 mg by 0 07/03/2016 PO) mouth 2 times daily as needed for moderate pain NONFORMULARY Take 1 Tablespoonful 0 by mouth daily ALL NATURAL GREENS NONFORMULARY Take 29 mLs by mouth 0 daily LIQUIDRIVE ANTIOXIDENT (1 ounce) NONFORMULARY Take 5 mLs by mouth 0 10/2017 daily LIPOSOMAL GLUTATHIONE NONFORMULARY Take 6 mLs by mouth 0 10/2017 daily LIPOSOMAL CURCUMIN [place]-3 Fatty Acids Take 6 mLs by mouth 0 08/26/2017 (OMEGA ESSENTIALS BASIC) daily LIQD oxyCODONE (ROXICODONE) 5 Take 1-2 tablets 50 tablet 0 03/1106/10/2016 MG immediate release (5-10 mg) by mouth tabletIndications: Right every 4 hours as hip pain needed for moderate to severe pain senna-docusate Take 1-2 tablets by 60 tablet 0 03/11/2016 0 07/03/2016 (SENOKOT-S;PERICOLACE) mouth 2 times daily 8.6-50 MG per as needed for tabletIndications: Right constipation hip pain documented as of this encounter Progress Notes Ashley Hennessy, ODESSA - 03/11/2016 5:00 PM CDT Patient discharged via w.chair with transportation design engineer, is ride home, both were present for discharge insructions, meds given IV removed. Ashely Hennessy RN - 03/11/2016 2:[address] Claros called wants patient to follow up with him Next or . Karen Machado OT - 03/11/2016 2:22 PM CDT 03/11/16 1400 Quick Adds Type of Visit Initial Occupational Therapy Evaluation Living Environment Lives With spouse Living Arrangements apartment (4th floor with elevator access) Home Accessibility no concerns Number of Stairs to Enter Home 0 Number of Stairs Within Home 0 Transportation Available car;family or friend will provide Living Environment Comment Pt's bathroom is equipped with a walk in shower with shower chair. Toiletriser with B UE support. Pt's will be able to provide assistance as needed once discharged Self-Care Usual Activity Tolerance good Current Activity Tolerance moderate Functional Level Prior Ambulation 0-->independent Transferring 0-->independent Toileting 0-->independent Bathing 0-->independent Dressing 0-->independent Eating 0-->independent Communication 0-->understands/communicates without difficulty Swallowing 0-->swallows foods/liquids without difficulty Cognition 0 - no cognition issues reported Fall history within last six months no Prior Functional Level Comment Pt's recently purchased a shower chair and raised toilet seatso pt will be utilizing as needed once she returns home. She also has access to a FWW and rollator walker General Information Onset of Illness/Injury or Date of Surgery - Date 03/10/16 Referring Physician Herb Patient/Family Goals Statement Return home with assist Pertinent History of Current Problem Pt is a 70 year old female POD #1 R AMY completed with an anterior approach, WBAT and no precautions Precautions/Limitations fall precautions Weight-Bearing Status - RLE weight-bearing as tolerated General Info Comments No hip precautions due to surgical approach Cognitive Status Examination Orientation person Level of Consciousness alert Able to Follow Commands WNL/WFL Personal Safety (Cognitive) WNL/WFL Visual Perception Visual Perception Wears glasses Pain Assessment Patient Currently in Pain Yes, see Vital Sign flowsheet (02/22 R LE - received pain meds right before therapy ) Transfer Skill: Bed to Chair/Chair to Bed Level of [place]: Bed to Chair stand-by assist Assistive Device - Transfer Skill Bed to Chair Chair to Bed Rehab Eval standard walker Transfer Skill: Sit to Stand Level of [place]: Sit/Stand stand-by assist Assistive Device for Transfer: Sit/Stand standard walker Transfer Skill: Toilet Transfer Level of [place]: Toilet stand-by assist Assistive Device standard walker;seat riser Bathing Level of [place] stand-by assist Assistive Device shower chair Upper Body Dressing Level of [place]: Dress Upper Body independent Lower Body Dressing Level of [place]: Dress Lower Body stand-by assist Toileting Level of [place]: Toilet stand-by assist Grooming Level of [place]: Grooming stand-by assist (while standing ) Eating/Self Feeding Level of [place]: Eating independent Instrumental Activities of Daily Living (IADL) Previous Responsibilities meal prep;housekeeping;laundry;shopping;medication management;finances;driving;work IADL Comments Pt and her work from their home. Pt's will assist with IADLs as neededat discharge Activities of Daily Living Analysis Impairments Contributing to Impaired Activities of Daily Living pain;strength decreased (LE strength ) General Therapy Interventions Intervention Comments Pt does not demonstrate need for continued inpatient OT services Clinical Impression Criteria for Skilled Therapeutic Interventions Met evaluation only Therapy Frequency daily Predicted Duration of Therapy Intervention (days/wks) 1 day - eval only Anticipated Discharge Disposition Home with Assist Risks and Benefits of Treatment have been explained. Yes Patient, Family & other staff in agreement with plan of care Yes [facility] Clicks ?? 2007, Trustees of [facility], under license to [employer]. All rights reserved. 6 Clicks Short Forms Daily Activity Inpatient Short Form [facility] AM-PAC??? 6 Clicks Daily Activity Inpatient Short Form 1. Putting on and taking off regular lower body clothing? 3 - A Little 2. Bathing (including washing, rinsing, drying)? 3 - A Little 3. Toileting, which includes using toilet, bedpan or urinal? 3 - A Little 4. Putting on and taking off regular upper body clothing? 4 - None 5. Taking care of personal grooming such as brushing teeth? 4 - None 6. Eating meals? 4 - None Daily Activity Raw Score (Score out of 24.Lower scores equate to lower levels of function) 21 Total Evaluation Time Total Evaluation Time (Minutes) 23 Josr Herrera - 03/11/2016 2:07 PM CDT [facility] Progress Note [facility] DATA: An initial brief visit as I was visiting pt on bed 2. Pt is cheerful and welcomed visit. Pt's Jordin is visiting and giving support. Pt, and I had a reflective conversation about illness, family and spirituality. 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 Pt reported having a supportive family and also demonstrated great strengths such as her sense of humor and resiliency. Pt said she is going home today. INTERVENTION: Explored pt's spirituality - purpose, meaning, connectedness and provided emotional/spiritual support. Prayer was shared. ASSESSMENT: Pt is coping well and is hopeful about her recovery. Darshana and Jordin also vocalized their maile in God and reported that their maile in God is their source of resilience and comfort. PLAN: No other needs expressed at this time but SHS remains available per pt???s support. Josr Herrera Hardware Test Engineer Pager # [phone] Andrey Estevez MD - 03/11/2016 1:31 PM CDT Orthopedic Surgery 03/11/2016 POD #1 S: Patient voices no complaints today. O: Blood pressure 110/54, pulse 85, temperature 98 ??F (36.7 ??C), temperature source Oral, resp. rate 16, height 1.676 m (5' 6), weight 68.176 kg (150 lb 4.8 oz), SpO2 98 %. HGB 10.7 03/11/2016 Neurovascularly intact. Calves are negative bilaterally, both soft and nontender. The dressing is C/D/I. A: Ms. Brooks is doing well status post Procedure(s): ARTHROPLASTY HIP ANTERIOR. P: Continue physical therapy. Anticipate discharge to home today. Andrey Sullivan [phone] Kim Vincent, PT - 03/11/2016 10:46 AM CDT 03/11/16 1000 Quick Adds Type of Visit Initial PT Evaluation Living Environment Lives With spouse Living Arrangements apartment Home Accessibility no concerns Number of Stairs to Enter Home 0 Number of Stairs Within Home 0 Transportation Available car;family or friend will provide Living Environment Comment elevator access Self-Care Dominant Hand right Usual Activity Tolerance good Current Activity Tolerance moderate Regular Exercise yes Activity/Exercise Type strength training Exercise Amount/Frequency daily Activity/Exercise/Self-Care Comment Hip exercises prior to surgery Functional Level Prior Ambulation 0-->independent Transferring 0-->independent Toileting 0-->independent Bathing 0-->independent Dressing 0-->independent Eating 0-->independent Communication 0-->understands/communicates without difficulty Swallowing 0-->swallows foods/liquids without difficulty Cognition 0 - no cognition issues reported Fall history within last six months no Prior Functional Level Comment Pt has access to a FWW, 4WW, RTS, shower chair General Information Onset of Illness/Injury or Date of Surgery - Date 03/10/16 Referring Physician Andrey Estevez MD Patient/Family Goals Statement Go home Pertinent History of Current Problem 70 YOF with R hip DJD now POD 1 R AMY with anterior approach, no precautions, WBAT. Precautions/Limitations fall precautions Weight-Bearing Status - LUE full weight-bearing Weight-Bearing Status - RUE full weight-bearing Weight-Bearing Status - LLE full weight-bearing Weight-Bearing Status - RLE weight-bearing as tolerated General Observations Pleasant and cooperative General Info Comments Activity: up with assist Cognitive Status Examination Orientation orientation to person, place and time Level of Consciousness alert Follows Commands and Answers Questions 100% of the time;able to follow multistep instructions Personal Safety and Judgment intact Memory intact Pain Assessment Patient Currently in Pain Yes, see Vital Sign flowsheet (12/25 R hip) Posture Posture Forward head position Range of Motion (ROM) ROM Comment BLEs WFL Strength Strength Comments LLE 5/5 throughout. R hip 4-/5, knee 4/5, ankle 5/5 Bed Mobility Bed Mobility Comments Supine<>sit modified independent Transfer Skills Transfer Comments Sit<>stand from bed to FWW with SBA Gait Gait Comments Gait with FWW and SBA x 10' with 3 point pattern, good tolerance for RLE WB. Balance Balance Comments Good sitting, requires UE support for dynamic standing Sensory Examination Sensory Perception no deficits were identified Coordination Coordination no deficits were identified General Therapy Interventions Planned Therapy Interventions balance training;gait training;strengthening;transfer training Clinical Impression Criteria for Skilled Therapeutic Intervention yes, treatment indicated PT Diagnosis Impaired gait APTA Preferred Practice Pattern musculoskeletal Influenced by the following impairments pain Functional limitations due to impairments transfers, gait Rehab Potential good, to achieve stated therapy goals Rehab potential affected by pain Therapy Frequency` 2 times/day Predicted Duration of Therapy Intervention (days/wks) 1 day Anticipated Discharge Disposition Home with Assist Risk & Benefits of therapy have been explained Yes Patient, Family & other staff in agreement with plan of care Yes [facility] AM-PAC??? 6 Clicks ?? 2007, Trustees of [facility], under license to [employer]. All rights reserved. 6 Clicks Short Forms Basic Mobility Inpatient Short Form [facility] AM-PAC??? 6 Clicks Basic Mobility Inpatient Short Form 1. Turning over in bed (including adjusting bedclothes, sheets and blankets)? 4 - None 2. Sitting down on and standing up from a chair with arms (e.g., wheelchair, bedside commode, etc.)?3 - A Little 3. Moving from lying on back to sitting on the side of the bed? 4 - None 4. Moving to and from a bed to a chair (including a wheelchair)? 3 - A Little 5. Need to walk in hospital room? 3 - A Little 6. Climbing 3-5 steps with a rail? 3 - A Little Basic Mobility Raw Score (Score out of 24.Lower scores equate to lower levels of function) 20 Total Evaluation Time Total Evaluation Time (Minutes) 15 ELT Simon Claros MD - 03/11/2016 7:04 AM CDT S)Pt nauseated postop, resolved.Jennifer well controlled w/ minimal analgesia.Beathing good. O) vss T98.9 C cl Cv rrr Abd soft NT Ext NT w/o edema Lt forearm/hand soft tiss swelling/ecchymosis from iv's Lab Hgb pending A)postop#1 rt AMY COPD P)Cont. 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 Aj. Display Specialist confirmed with office that Dr. Claros would see patient in hospital. aggie Smith - 03/10/2016 9:01 AM CDT Admission medication history interview status for the 03/10/2016 admission is complete. See [facility] admission navigator for prior to admission medications Medication history source reliability:Good Medication history interview source(s):Patient Medication history resources (including written lists, pill bottles, clinic record):Patient mailed in list prior to surgery & Verified Ciprofloxacin 500mg BID with [facility] Pharm[facility] Primary pharmacy.[facility] Additional medication history information not noted on [employer] med list :None Time spent in this activity: 30 minutes Prior to Admission medications Medication Sig Last Dose Taking? Auth Provider CIPROFLOXACIN PO Take 500 mg by mouth 2 times daily 7-Day Course (not yet complete) picked up from pharmacy on 03/05/16 03/09/2016 at 2200 Yes Reported, Patient LISINOPRIL PO Take 10 mg by mouth daily 03/10/2016 at 0700 Yes Reported, Patient loratadine (CLARITIN) 10 MG tablet Take 10 mg by mouth 03/09/2016 at AM Yes Reported, Patient Cholecalciferol (VITAMIN D3 PO) Take 2,000 Units by mouth daily 03/03/2016 at AM Yes Reported, Patient [place]-3 Fatty Acids (OMEGA ESSENTIALS BASIC) LIQD Take 6 mLs by mouth daily 03/03/2016 at AM Yes Reported, Patient Naproxen Sodium (ALEVE PO) Take 220-440 mg by mouth 2 times daily as needed for moderate pain 03/03/2016 at PRN Yes Reported, Patient albuterol (PROAIR HFA, PROVENTIL HFA, VENTOLIN HFA) 108 (90 BASE) MCG/ACT inhaler Inhale 2 puffs into the lungs 2 times daily 03/09/2016 at 2200 Yes Reported, Patient NONFORMULARY Take 1 Tablespoonful by mouth daily ALL NATURAL [place]ENS 03/03/2016 at AM Yes Reported, Patient NONFORMULARY Take 29 mLs by mouth daily LIQUIDRIVE ANTIOXIDENT (1 ounce) 03/03/2016 at AM Yes Reported, Patient NONFORMULARY Take 5 mLs by mouth daily LIPOSOMAL GLUTATHIONE 03/03/2016 at AM Yes Reported, Patient NONFORMULARY Take 6 mLs by mouth daily LIPOSOMAL CURCUMIN 03/03/2016 at AM Yes Reported, Patient documented in this encounter Nursing Notes Masha Kunz RN - 03/10/2016 10:18 AM CDT Bruising occurred during IV start left had. Ice applied and pressure dressing documented in this encounter Miscellaneous Notes Op Note - Andrey Estevez MD - 04/05/2016 3:45 PM CDT DATE OF SERVICE: 03/10/2016 SURGEON ANDREY SULLIVAN M.D. CASE SUPERVISOR Zari Peterson PA-C. PREOPERATIVE DIAGNOSIS Right hip osteoarthritis, failed to respond to conservative management. POSTOPERATIVE DIAGNOSIS Right hip osteoarthritis, failed to respond to conservative management. TITLE OF PROCEDURE Right total hip arthroplasty, Depuy uncemented components, direct anterior approach. PROCEDURE The patient was brought to the operating room and after satisfactory anesthesia was placed on the [place] table. The right lower extremity was then prepped and draped in the usual sterile fashion. Image intensification was utilized during the case for component positioning as well as leg length assessment. An incision was made just lateral to the ASIS and coursing toward the proximal femur. Dissection was carried down to the TFL. The fascia overlying the TFL was incised and dissection was carried down to the interval between TFL and rectus femoris. This was identified. A lateral cobra retractor was placed followed by a medial cobra around the femoral neck. The leash vessels, anterior circumflex, was i dentified and was coagulated. The underlying fascia was released. Dissection was carried down to thehip capsule. Capsule was identified and a capsulotomy was performed in a T-type fashion first along the intertrochanteric line and then secondarily up along the femoral neck and head, finally completedby releasing along the saddle of the trochanter. The capsular edges were tagged for later repair. The hip was then externally rotated and medial capsular release was performed such that the lesser trochanter could be palpated. Following this, the femoral neck was osteotomized as per the preoperative plan. The femoral head was removed with a corkscrew without difficulty. The acetabulum was exposed andwas reamed sequentially up to 56 mm. This was reamed under both direct visualization as well as the aid of image intensification. A 56 mm [place] cup was impacted into place in approximately 40 to 45 degrees of abduction, and 15 degrees of anteversion. Three screws were placed and this gave excellentfixation. The 36 mm neutral liner was impacted into place. Attention was then directed to the femur. The hook was placed underneath the proximal aspect of the femur between the trochanteric ridge and gluteus garry. The hip was then brought into external rotation, adduction, and extension. The femur was then carefully elevated using the appropriate releases off the inside of the greater trochanter. Once the femur was elevated, a starter broach was placed followed by sequential broaches. The broaches were performed up to size 2, which gave excellent torsionas well as axial stability. Trial reduction was performed with a +5mm head. The hip was reduced and with hip reduction the combined anteversion looked excellent. The hip was brought into full extension and external rotation. There was no evidence of instability. As well, x-rays were printed and compared with the opposite side and found to have good length and rastafarian of offset. It was felt that an additional stem size could not be placed. The hip was then dislocated and then the proximal femur was then brought back up into the proximal aspect of the wound. The real size 2 trilock stem, standardoffset was impacted into place. Again this gave excellent torsion as well as axial stability. The real +5mm Biolox ceramic head was impacted into place and the hip was reduced again. The image intensification confirmed excellent position of the components. A 3 minute dilute betadine soak was performed. The wound was thoroughly irrigated. The capsule was closed with interrupted 0 Vicryl suture and tissues infiltrated with toradol/marcaine mixture. The tensor fascia was closed with a running 0 V-lock suture. The subcutaneous layer was closed with interrupted 2-0 Vicryl, 3-0 subcuticular was placed followed by Dermabond. Sterile dressing was applied. The patient left the operating room in satisfactory condition. Patient received 1 gm of tranexamic acid pre-op and at closure. Plan of Care - Kim Vincent, PT - 03/11/2016 4:21 PM CDT Problem: Goal Outcome Summary Goal: Goal Outcome Summary PT: Pt demonstrates modified independence with bed mobility, transfers, gait x 300' with both a FWW and 4WW, and LE exercises with an HEP handout. Encouraged pt to complete exercises twice daily and walk for exercise. Goals met. Rec home with assist and LE HEP. Physical Therapy Discharge Summary Reason for therapy discharge: Discharged to home. Progress towards therapy goal(s). See goals on Care Plan in [facility] electronic health record for goal details. Goals met Therapy recommendation(s): Continue home exercise program. Plan of Care - Karen Machado OT - 03/11/2016 2:26 PM CDT Problem: Goal Outcome Summary Goal: Goal Outcome Summary OT: Pt is a 70 year old female POD #1 R AMY completed with an anterior approach, WBAT and no hip precautions. Prior to admission pt was residing with her in a 4th floor apartment with elevator access and reported independence with all ADL/IADLs, including driving and working from home. Per pt and who was present during session, pt's will be able to provide assistance as neededat discharge. During session pt completed sit <> stand from EOB, ambulated to and from bathroom, and completed toilet transfer with FWW and SBA. Pt completed LB clothing management and hygiene during toileting with SBA. Lastly, pt retrieved clothing from closet with FWW and completed full body dressing with SBA while EOB with periods of standing. 4/10 pain in R LE reported during session. Pt does not demonstrate need for continued inpatient OT services and pt was agreeable. Recommend pt discharge home with assistance from as needed for ADL/IADLs. Plan of Care - Ashley Hennessy, ODESSA - 03/11/2016 1:17 PM CDT Problem: Hip Replacement, Total (Adult) Goal: Signs and Symptoms of Listed Potential Problems Will be Absent or Manageable (Hip Replacement,Total) Signs and symptoms of listed potential problems will be absent or manageable by discharge/transitionof care (reference Hip Replacement, Total (Adult) CPG). Outcome: Adequate for Discharge Date Met: 03/11/16 Patient is doing well, up with sba IN THE hallways, on room air, minimal pain complaints, VSS, voiding fine. Eating with no complications, set to likely discharge this evening. Plan of Care - Kim Vincent PT - 03/11/2016 10:58 AM CDT Problem: Goal Outcome Summary Goal: Goal Outcome Summary PT: PT orders received, initial eval completed and treatment initiated. Patient lives with her in an apartment with elevator access. Previously independent with all ADLs and mobility without a device. She does have access to a FWW, 4WW, RTS, shower chair. Pt presents POD 1 R AMY with anterior approach, no precautions, WBAT. Pt currently demonstrates independence with bed mobility; requires SBA for transfers and gait x 250' with FWW. Instructed pt in supine LE exercises. Rec home with assist and LE HEP, ambulation program. Plan of Care - GILDARDO GROVES - 03/11/2016 5:39 AM CDT Problem: Goal Outcome Summary Goal: Goal Outcome Summary Outcome: Improving PT A/O, VSS on 2L overnight. repositioned for comfort. CMS intact, dressing c.d.i. Pain well managedwith scheduled Toradol. Will continue to monitor. , Plan of Care - Thalia Acosta RN - 03/10/2016 10:31 PM CDT Problem: Goal Outcome Summary Goal: Goal Outcome Summary Outcome: No Change Patient arrived to unit from PACU at 1550. A&Ox4, initially lethargic, throughout shift patient has become more awake. VS stable. Fang in place. Patient has declined pain meds except for scheduledToradol. Patient sat at edge of bed and tolerated initially, though while moving back to lay down patient become nauseous. Otherwise has tolerated clear liquids. Plan of Care - Kim Vincent PT - 03/10/2016 3:56 PM CDT Problem: Goal Outcome Summary Goal: Goal Outcome Summary PT: PT orders received, chart reviewed, eval attempted. Per RN, pt is not appropriate for PT at thistime. RN will try to dangle the pt later and requests PT hold eval until tomorrow morning. Brief Op Note - Andrey Estevez MD - 03/10/2016 1:47 PM CDT [facility] Brief Operative Note Pre-operative diagnosis: RIGHT HIP DJD Post-operative diagnosis * No post-op diagnosis entered * Procedure: Procedure(s): RIGHT TOTAL HIP ARTHROPLASTY ANTERIOR APPROACH - Wound Class: I-Clean Surgeon(s): Surgeon(s) and Role: * Andrey Estevez MD - Primary * Zari Peterson PA-C - Assisting Estimated blood loss: 375 mL Specimens: * No specimens in log * Findings: Advanced OA documented in this encounter Plan of Treatment Upcoming Encounters Date Type Specialty Care Team Description 10/26/2022 Lab Oncology Yris Perez MD [address] [phone] (Wo rk) 11/03/2022 Oncology Visit Oncology Yris Perez MD [address] [phone] (Wo rk) documented as of this encounter Procedures Procedure Name Priority Date/Time Associated Comments Diagnosis HEMOGLOBIN Routine 03/11/2016 6:15 AM Results f or this CDT procedure are i n the results section. GLUCOSE Routine 03/11/2016 3:15 AM Results f or this CDT procedure are i n the results section. XR POST OPERATIVE STAT 03/10/2016 2:44 PM Resu lts for this IMAGING [place] CDT procedure ar e in the results section. XR SURGERY JAYY Routine 03/10/2016 1:05 PM Result s for this FLUORO LESS THAN 5 CDT procedure are in MIN W STILLS the results section. ARTHROPLASTY, HIP, 03/10/2016 10:47 AM RIGHT HIP DJD TOTAL, DIRECT CDT ANTERIOR APPROACH POTASSIUM STAT 03/10/2016 9:25 AM Results f or this CDT procedure are i n the results section. PLATELET COUNT Routine 03/10/2016 9:25 AM Results for this CDT procedure are i n the results section. HEMOGLOBIN STAT 03/10/2016 9:25 AM Results f or this CDT procedure are i n the results section. CREATININE STAT 03/10/2016 9:25 AM Results f or this CDT procedure are i n the results section. ABO/RH TYPE AND STAT 03/10/2016 9:25 AM Result s for this SCREEN CDT procedure are i n the results section. 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 documented in this encounter Results (ABNORMAL) Hemoglobin (03/11/2016 6:15 AM CDT) athologist Signature Hemoglobin 10.7 (L) 11.7 - 15.7 [place] g/dL [facility] Specimen Anatomical Collection Method Collection Time Receive d Time (Source) Location / / Volume Laterality Blood specimen 03/11/2016 6:15 AM 016 8:36 (specimen) CDT AM CDT Andrey Estevez MD LAB - BLOOD ORDERABLES Performing Organization Address City/State/ZIP Code Phon e Number M [facility] [address] [address] [place] [address] [address] [address], [facility] [[email or web address]] [phone] (ABNORMAL) Glucose (03/11/2016 3:15 AM CDT) athologist Signature Glucose 130 (H) 70 - 99 [place] mg/dL [facility] Specimen Anatomical Collection Method Collection Time Receive d Time (Source) Location / / Volume Laterality Blood specimen 03/11/2016 3:15 AM 016 6:23 (specimen) CDT AM CDT Andrey Estevez MD LAB - BLOOD ORDERABLES Performing Organization Address City/State/ZIP Code Phon e Number M [facility] [address] [address] [place] [address] [place] [address], [place] [phone] XR Post Surgical Imaging (03/10/2016 2:44 PM CDT) Anatomical Region Laterality Modality Computed Radiography Specimen (Source) Anatomical Location Collection Method / Collectio n Time Received Time / Laterality Volume Impressions 03/10/2016 3:41 PM CDT IMPRESSION: Right hip arthroplasty. NIRANJAN ESCOBEDO MD Narrative 03/10/2016 3:41 PM CDT XR POST OPERATIVE ??IMAGING 03/10/2016 2:44 PM HISTORY: Post Op Hip Arthroplasty COMPARISON: None. FINDINGS: Right hip arthroplasty hardwar e components appear well-seated without radiographic evidenc e of complication. Procedure Note Niranjan Escobedo MD - 03/10/2016For matting of this note might be different from the original. XR POST OPERATIVE IMAGING 03/10/2016 2:44 PM HISTORY: Post Op Hip Arthroplasty COMPARISON: None. FINDINGS: Right hip arthroplasty hardwar e components appear well-seated without radiographic evidenc e of complication. IMPRESSION: Right hip arthroplasty. NIRANJAN ESCOBEDO MD Andrey Estevez MD IMG DIAGNOSTIC IMAGING ORDER [place] XR Surgery JAYY L/T 5 Min Fluoro w Stills (03/10/2016 1:05 PM CDT) Specimen (Source) Anatomical Location Collection Method / Collectio n Time Received Time / Laterality Volume Impressions RADIANT - 03/10/2016 1:18 PM CDT exam was marked as non-reportable because it will not be read by a radiologist or a [place] non-radiologis t provider. Narrative RADIANT - 03/10/2016 1:18 PM CDT This Andrey Estevez MD IMG DIAGNOSTIC IMAGING ORDER [place] Performing Organization Address City/State/ZIP Code Phon e Number [facility] Platelet count (03/10/2016 9:25 AM CDT) P athologist Signature Platelet Count 232 150 - 450 [place] 10e9/L [facility] Specimen Anatomical Collection Method Collection Time Receive d Time (Source) Location / / Volume Laterality 03/10/2016 9:25 AM 6 9:37 CDT AM CDT Zari Peterson PA-C LAB - BLOOD ORDERABLES Performing Organization Address City/State/ZIP Code Phon e Number M [facility] [address] [place] [address] [facility] [address] [place] [address], [place] [phone] Potassium (03/10/2016 9:25 AM CDT) P athologist Signature Potassium 4.1 3.4 - 5.3 [place] mmol/L [facility] Specimen Anatomical Collection Method Collection Time Receive d Time (Source) Location / / Volume Laterality Blood specimen 03/10/2016 9:25 AM 016 9:37 (specimen) CDT AM CDT Yancy Healy MD LAB - BLOOD ORDERABLES Performing Organization Address City/[facility]/ZIP Code Phon e Number M [facility] [address] [place] [address] [facility] [address] [place] [address], [place] [phone] ABO/Rh type and screen (03/10/2016 9:25 AM CDT) [facility] gist Method Time Signature ABO O [facility] RH(D) Pos [facility] Antibody Neg [place] Screen [facility] Test Valid [facility] Only [facility] Specimen 03/13/2016 [place] [facility] Anatomical Collection Method Collection Time Receive d Time (Source) Location / / Volume Laterality Blood specimen 03/10/2016 9:25 AM 016 9:39 (specimen) CDT AM CDT Zari Peterson PA-C LAB - BLOOD BANK TEST OR ANNA Performing Organization Address City/State/ZIP Code Phon e Number M [facility] [address] [place] [address] [facility] [address] [place] [address], [place] [phone] Creatinine (03/10/2016 9:25 AM CDT) P athologist Signature Creatinine 0.91 0.52 - 1.04 [place] mg/dL [facility] GFR Estimate 61 >60 [place] mL/min/1.7m [address] Comment: Non GFR Calc GFR Estimate If Black 74 >60 mL/min/1.7m2 F [facility] Comment: GFR Calc Specimen Anatomical Collection Method Collection Time Receive d Time (Source) Location / / Volume Laterality Blood specimen 03/10/2016 9:25 AM 016 9:37 (specimen) CDT AM CDT Zari Peterson PA-C LAB - BLOOD ORDERABLES Performing Organization Address City/State/ZIP Code Phon e Number M [facility] [address] [phone] [facility] [address] [place] [address], [place] [phone] Hemoglobin (03/10/2016 9:25 AM CDT) athologist Signature Hemoglobin 14.0 11.7 - 15.7 [place] g/dL [facility] Specimen Anatomical Collection Method Collection Time Receive d Time (Source) Location / / Volume Laterality Blood specimen 03/10/2016 9:25 AM 016 9:37 (specimen) CDT AM CDT Zari Peterson PA-C LAB - BLOOD ORDERABLES Performing Organization Address City/State/ZIP Code Phon e Number M [facility] [address] [place] [address] [phone] [facility] [address] [place] [address], [place] [phone] LAB RESULT - HIM SCAN (03/05/2016 12:00 AM CDT) Specimen (Source) Anatomical Location Collection Method / Collectio n Time Received Time / Laterality Volume 03/05/2016 Narrative This result has an attachment that is no t available. Provider Outside NON-BEAKER LAB TESTING EKG CARDIAC - HIM SCAN (12/31/2015 12:00 AM PRINCIPAL ANDROID DEVELOPER) Specimen (Source) Anatomical Location Collection Method / Collectio n Time Received Time / Laterality Volume 12/31/2015 Narrative This result has an attachment that is no t available. Provider Outside ECG ORDERABLES documented in this encounter Visit Diagnoses Diagnosis Right hip pain - Primary Pain in joint, pelvic region and thigh documented in this encounter Administered Medications Inactive Administered Medications - up to 3 most recent administrations Medication Order MAR Action Action Date Dose Rate Site acetaminophen (TYLENOL) tablet 975 Given 03/11/2016 8:16 AM CDT 975 mg mg 975 mg, Oral, EVERY 8 HOURS, First dose on Wed03/10/16 at 1700, For 3 days, Do not use if patient has an active opioid/acetaminophen analgesic order for pain Maximum acetaminophen dose from all sources = 75 mg/kg/day not to exceed 4 grams/day., Post-procedure albuterol (PROAIR HFA, PROVENTIL HFA, Given 03/11/2016 8:37 AM C DT 2 puffs VENTOLIN HFA) inhaler 2 puff 2 puff, Inhalation, EVERY 6 HOURS PRN, wheezing, Starting on Wed03/11/16 at 0711 ceFAZolin (ANCEF) 1 g vial to attach to NS 100 New Bag 0 03/11/2016 4:38 AM CDT 1 g ml bag for ADULT or 50 ml bag for PEDS Routine, 1 g, Intravenous, EVERY 8 HOURS, First dose on Wed03/10/16 at 2100, For 2 doses, First post-op dose due 8 hours after intra-op dose, see eMAR., Indications: Perioperative Pharmacoprophylaxis, Post-procedure New Bag 03/10/2016 9:26 PM CDT 1 g dextrose 5% and 0.45% NaCl + KCl 20 New Bag 03/11/2016 6:08 AM CDT 100 mL/hr mEq/L infusion at 100 mL/hr, Intravenous, CONTINUOUS, Change to saline lock when PO well tolerated., Post-procedure, Starting on Wed03/10/16 at 1545, Until Wed03/11/16 at 0711 Rate/Dose Verify 03/11/2016 12:06 AM CDT 100 mL/hr New Bag 03/10/2016 9:26 PM CDT 100 mL/hr enoxaparin (LOVENOX) injection 40 mg Given 03/11/2016 8:16 AM CDT 40 mg 40 mg, Subcutaneous, EVERY 24 HOURS, First dose on Wed03/11/16 at 0800, Check to make sure start date/time is 12-24 hours post op unless documented complication, AND no sooner than 22 hours post op if spinal anesthesia used. Continue until discharge to home. HOLD if platelet count falls below 50% of baseline or less than 100,000/??L and notify provider., Post-procedure HYDROmorphone (DILAUDID) injection 0.3-0 .5 mg Given 03/10/2016 2:24 PM CDT 0.5 mg 0.3-0.5 mg, Intravenous, EVERY 5 MIN PRN, other, acute pain.?May administer if Respiratory Rate is greater than 10, Starting on Wed03/10/16 at 1321, If fentanyl is also ordered, use HYDROmorphone if pain control insufficient with fentanyl or a longer acting agent is needed. Max cumulative dose = 2 mg ketorolac (TORADOL) injection 15 mg Given 03/11/2016 8:16 AM CDT 15 mg 15 mg, Intravenous, EVERY 6 HOURS, First dose on Wed03/10/16 at 1900, For 4 doses, Age greater than or equal to 65 years AND CrCl 30- 50 mL/minute. May continue use for up to 5 days MAX if order renewed. IF celecoxib (CELEBREX) was given pre-operatively, start ketorolac (TORADOL) 12 hours after celecoxib (CELEBREX) given., Post-procedure Given 03/11/2016 1:59 AM CDT 15 mg Given 03/10/2016 7:59 PM CDT 15 mg lactated ringers infusion New 03/10/2016 12:29 PM CDT at 25 mL/hr, Intravenous, CONTINUOUS, IF patient NOT on dialysis., Starting on Wed03/10/16 at 0900, Until Wed03/10/16 at 1618 New Bag 03/10/2016 11:28 AM CDT New Bag 03/10/2016 10:04 AM CDT 25 mL/hr lactated ringers infusion New Bag 03/10/2016 2:16 PM CDT 100 mL/hr at 100 mL/hr, Intravenous, CONTINUOUS, Continue until IV catheter is weaned, Starting on Wed03/10/16 at 1330, Until Wed03/10/16 at 1618 ondansetron (ZOFRAN) injection 4 mg Given 03/10/2016 1:59 PM CDT 4 mg 4 mg, Intravenous, EVERY 30 MIN PRN, nausea, Administer over 2-5 Minutes, Starting on Wed03/10/16 at 1321, For 2 doses, MAX total dose = 8 mg, including OR dosing. If not resolved in 15 minutes, then go to step 2 (Prochlorperazine if ordered). ondansetron (ZOFRAN) injection 4 mg Given 03/10/2016 9:37 PM CDT 4 mg 4 mg, Intravenous, EVERY 6 HOURS PRN, nausea, vomiting, Administer over 2-5 Minutes, Starting on Wed03/10/16 at 1543, This is Step 1 of nausea and vomiting management. If nausea not resolved in 15 minutes, go to Step 2 prochlorperazine (COMPAZINE)., Post-procedure oxyCODONE (OxyCONTIN) 12 hr tablet 10 mg Given 03/10/2016 10:03 AM CDT 10 mg 10 mg, Oral, ONCE, On Wed03/10/16 at 0900, For 1 dose, DO NOT CRUSH., Pre-procedure oxyCODONE (ROXICODONE) immediate release tablet Given 03/11/2016 1:36 PM CDT 5 mg 5-10 mg 5-10 mg, Oral, EVERY 3 HOURS PRN, moderate to severe pain, Starting on Wed03/10/16 at 1543, IF CrCl is UNKNOWN start at lowest end of dosing range. Hold while on QA DEVELOPER or with regular IV opioid dosing., Post-procedure Given 03/11/2016 7:13 AM CDT 5 mg prochlorperazine (COMPAZINE) injection 5 mg Given 03/10/2016 2:19 PM CDT 5 mg 5 mg, Intravenous, EVERY 6 HOURS PRN, nausea, vomiting, Starting on Wed03/10/16 at 1418, PACU senna-docusate (SENOKOT-S;PERICOLACE) Given 03/11/2016 9:00 AM C DT 2 tablets 8.6-50 MG per tablet 1-2 tablet 1-2 tablet, Oral, 2 TIMES DAILY, First dose on Wed03/10/16 at 2100, Start with 1 tablet PO BID, If no bowel movement in 24 hours, increase to 2 tablets PO BID. Hold for loose stools., Post-procedure documented in this encounter Active and Recently Administered Medications Times are shown in CDT. Scheduled Medication Order 03/09/2016 03/10/2016 03/11/2016 acetaminophen (TYLENOL) tablet 975 mg (CANCELED) 1740 (Not Given - Provider: Thalia Acosta RN - Reason: Patient/family refused) 0016 (Not Given - Provider: GILDARDO GROVES - Reason: Patient/family refused)0816 (Given - Provider: Ashley Hennessy RN)1700 (Canceled Entry - Provider: Orders Generic Provider - Comment: Automatically canceled at discont 975 mg, Oral, EVERY 8 HOURS, First dose on Wed03/10/16 at 1700, For 3 days, Do not use if patient has an active opioid/acetaminophen analgesic order for pain Maximum acetaminophen dose from all sources inue of medication order) = 75 mg/kg/day not to exceed 4 grams/day., Post-procedure ceFAZolin (ANCEF) 1 g vial to attach to NS 100 ml bag for ADULT or 50 ml bag for PEDS (CANCELED) 1310 (Given - Provider: Ruchi Ferrer APRN CRNA) 1 g, Intravenous, SEE ADMIN INSTRUCTIONS , Starting Wed03/10/16 at 0859, Intra-Op Dose.?Give every 2 hours while patient in surgery, starting 2 hours after pre-op dose.?DO NOT GIVE intra-op dose if CrCl less than 10 mL/min (on dialysis). ?If CrCL less than 50 mL/min, double the time interval between doses., Indications: Surgical Prophylaxis ceFAZolin (ANCEF) 1 g vial to attach to NS 100 ml bag for ADULT or 50 ml bag for PEDS (COMPLETED) 2125 (New Bag - Provider: Thalia Acosta RN) 0438 (New Bag - Provider: GILDARDO GROVES) 1 g, Intravenous, EVERY 8 HOURS, First d ose on Wed03/10/16 at 2100, For 2 doses, First post-op dose due 8 hours after intra-op dose, see eMAR., Indications: Surgical Prophylaxis, Post-procedure CeFAZolin Sodium-Dextrose (ANCEF) intermittent infusion 2 g (COMPLETED) 1005 (Handoff - Provider: Masha Kunz RN)1110 (Given - Provider: Ion Kerr APRN BENCH LATHE OPERATOR)1306 (Given - Provider: Ion Kerr APRN BENCH LATHE OPERATOR) 2 g, Intravenous, PRE-OP/PRE-PROCEDURE, Starting Wed03/10/16 at 0859, For 1 dose, Give first dose within 1 hour PRIOR to incision. If patient weight is greater than or equal to 120 kg increase dose to 3 g., Indications: Surgical Prophylaxis, Pre-procedure enoxaparin (LOVENOX) injection 40 mg (CANCELED) 815 (Given - Provider: Ashley Hennessy, ODESSA) 40 mg, Subcutaneous, EVERY 24 HOURS, Fir st dose on Wed03/11/16 at 0800, Check to make sure start date/time is 12-24 hours post op unless documented complication, AND no sooner than 22 hours post op if s jessica anesthesia used. Continue until di scharge to home. HOLD if platelet count falls below 50% of baseline or less than 100,000/??L and notify provider., Post-procedure ketorolac (TORADOL) injection 15 mg (CANCELED) 1958 (Given - Provider: Thalia Acosta RN) 0159 (Given - Provider: ASHLEY GROVES)0816 (Given - Provider: Ashley Hennessy RN)1509 (Canceled Entry - Provider: Ashley Hennessy RN - Comment: dischargin) 15 mg, Intravenous, EVERY 6 HOURS, First dose on Wed03/10/16 at 1900, For 4 doses, Age greater than or equal to 65 years AND CrCl 30- 50 mL/minute. May continue use for up to 5 days MAX if order renewed . IF celecoxib (CELEBREX) was given pre- operatively, start ketorolac (TORADOL) 12 hours after celecoxib (CELEBREX) given., Post-procedure oxyCODONE (OxyCONTIN) 12 hr tablet 10 mg (COMPLETED) 1003 (Given - Provider: Masha Kunz RN) 10 mg, Oral, ONCE, Wed03/10/16 at 0900, For 1 dose, DO NOT CRUSH., Pre-procedure senna-docusate (SENOKOT-S;PERICOLACE) 8.6-50 MG per tablet 1 -2 tablet 2045 (Not Given - Provider: Thalia Acosta RN - Reason: Other) 0900 (Given - Provider: Ashley Hennessy RN - Comment: scanned med in room unsure why it is not marked .. was given with am medications.) 1-2 tablet, Oral, 2 TIMES DAILY, First d ose on Wed03/10/16 at 2100, Start with 1 tablet PO BID, If no bowel movement in 24 hours, increase to 2 tablets PO BID. Hold for loose stools., Post-procedure tranexamic Acid (CYKLOKAPRON) 1 g in NaCl 0.9 % 60 mL bolus (COMPLETED) 1005 (Handoff - Provider: Masha Kunz RN)1110 (Given - Provider: Ion Kerr APRN CRNA)1305 (Given - Provider: Ion Kerr APRN CRNA) 1 g, Intravenous, ONCE, Wed03/10/16 at 0 900, For 1 dose, Each 1 gram to be infused over 10 minutes., Pre-procedure Continuous Medication Order 03/09/2016 03/10/2016 03/11/2016 dextrose 5% and 0.45% NaCl + KCl 20 mEq/L infusion (CANCELED ) 2126 (New Bag - Provider: Thalia Acosta RN) 0006 (Rate/Dose Verify - Provider: GILDARDO HERNANDEZ)0608 (New Bag - Provider: GILDARDO GROVES)0823 (Stopped - Provider: Ashley Hennessy RN) at 100 mL/hr, Intravenous, CONTINUOUS, C hange to saline lock when PO well tolerated., Post-procedure, Starting Wed03/10/16 at 1545, Until Wed03/11/16 at 0711 lactated ringers infusion (CANCELED) 100 4 (New Bag - Provider: Masha Kunz RN)1128 (New Bag - Provider: Ion Kerr APRN CRNA)1203 (Anesthesia Volume Adjustment - Provider: Ion Kerr APRN CRNA)1229 (New Bag - Provider: Ion Kerr APRN CRNA) at 25 mL/hr, Intravenous, CONTINUOUS, IF patient NOT on dialysis., Starting Wed03/10/16 at 0900, Until Wed03/10/16 at 1618 1339 (Anest hesia Volume Adjustment - Provider: Ruchi Ferrer APRN BENCH LATHE OPERATOR) lactated ringers infusion (CANCELED) 141 6 (New Bag - Provider: Jennifer Harden, RN) at 100 mL/hr, Intravenous, CONTINUOUS, C ontinue until IV catheter is weaned, Starting Wed03/10/16 at 1330, Until Wed03/10/16 at 1618 PRN Medication Order 03/09/2016 03/10/2016 03/11/2016 albuterol (PROAIR HFA, PROVENTIL HFA, VENTOLIN HFA) inhaler 2 pu ff (CANCELED) 0837 (Given - Provider: Ashley Hennessy, ODESSA) 2 puff, Inhalation, EVERY 6 HOURS PRN, wheezing, Starting Wed at 0711 Bupivacaine-Epinephrine (PF) 0.5% -1: injection (CANCE LED) 1313 (Given - Provider: Andrey Estevez MD - Comment: injection, mixed with 30 mg toradol) PRN, Starting Wed03/10/16 at 1313, Intra-procedure ceFAZolin 1000 mg + gentamicin 120 mg + NaCl 0.9% 1000 mL Ba g (CANCELED) 1155 (Given - Provider: Andrey Estevez MD - Comment: PRN) PRN, Starting Wed03/10/16 at 1155, Intra-procedure HYDROmorphone (DILAUDID) injection 0.3-0.5 mg (CANCELED) 1424 (Given - Provider: Jennifer Harden, RN) 0.3-0.5 mg, Intravenous, EVERY 5 MIN PRN , Starting Wed03/10/16 at 1321, Until Wed03/10/16 at 1618, other, acute pain.?May administer if Respiratory Rate is greater than 10, If fentanyl is also ordere d, use HYDROmorphone if pain control ins ufficient with fentanyl or a longer acting agent is needed. Max cumulative dose = 2 mg ketorolac (TORADOL) injection (CANCELED) 1313 (Given - Provider: Andrey Estevez MD - Comment: injection, mixed with 60ml 0.5% bupivicaine with epi) PRN, Starting 03/10/16 at 1313, Intra-procedure ondansetron (ZOFRAN) injection 4 mg (CANCELED) 1359 (Given - Provider: Jennifer Harden, RN) 4 mg, Intravenous, EVERY 30 MIN PRN, naida sea, for 2 Minutes, Starting 03/10/16 at 1321, For 2 doses, MAX total dose = 8 mg, including OR dosing. If not resolved in 15 minutes, then go to step 2 (Prochlorperazine if ordered). ondansetron (ZOFRAN) injection 4 mg (CANCELED) 2137 (Given - Provider: Thalia Acosta, ODESSA) 4 mg, Intravenous, EVERY 6 HOURS PRN, na usea, vomiting, for 2 Minutes, Starting 03/10/16 at 1543, This is Step 1 of nausea and vomiting management. If nausea not resolved in 15 minutes, go to Step 2 prochlorperazine (COMPAZINE)., Post-procedure oxyCODONE (ROXICODONE) immediate release tablet 5-10 mg 0713 (Given - Provider: Fatemeh Carpenter, RN)1336 (Given - Provider: Ashley Hennessy, ODESSA) 5-10 mg, Oral, EVERY 3 HOURS PRN, modera te to severe pain, Starting 03/10/16 at 1543, IF CrCl is UNKNOWN start at lowest end of dosing range. Hold while on QA DEVELOPER or with regular IV opioid dosing., Post-procedure prochlorperazine (COMPAZINE) injection 5 mg (CANCELED) 1419 (Given - Provider: Jennifer Harden, DOESSA) 5 mg, Intravenous, EVERY 6 HOURS PRN, na usea, vomiting, Starting e 03/10/16 at 1418, PACU skin closure adhesive (DERMABOND) (CANCELED) 1314 (Given - Provider: Andrey Estevez MD) PRN, Starting e 03/10/16 at 1314, Intra-procedure documented in this encounter Care Teams Compounder Relationship Specialty Start Date End Date Simon Claros MD PCP - General Internal Medicine 09/22/12 08/20/21 (work) documented as of this encounter
--- OUTSIDE RECORDS SUMMARY | 2022-08-20 14:29 | XMS_ITS | Encounter Summary ---
:1945 Author Organization [place] Address [address] [facility] [place] [address] Care Team Providers Name Role Phone Simon Claros MD Primary Care Provider Simon Claros MD Unavailable Simon Claros MD Unavailable Reason for Visit (Routine) - Closed Specialty Diagnoses / Procedures Referred By Contact Refer red To Contact Radiology / Radiology. Diagnoses EPIC ORDER sb Crystal [phone] Sh Mri Procedures MR LUMBAR SPINE WO [address] [place] [address] Phone: Referral ID Status Reason Start Date Expiration Date Visits Requ ested Visits Authorized [id number] Closed 01/05/2017 01/05/2018 1 1 Encounter Details Date Type Department Care Team Description 01/13/2017 Hospital Encounter M [facility] Simon Claros, Right hip pain [facility] [address] [place] [phone] [address] [place] [address] Social History Tobacco Use Types Packs/Day [...] mg) by mouth 3 times Dysuria daily ESD-Ltdz-JwJtfn-MgHydr- Take 10 mLs by mouth 0 01/25/2017 [...] by mouth 0 10/2017 daily LIPOSOMAL CURCUMIN [place]-3 Fatty Acids Take 6 mLs by mouth 0 08/26/2017 (OMEGA ESSENTIALS daily BASIC) LIQD documented as of this encounter Progress Notes Jessi Reina PA-C - 01/13/2017 5:05 PM CST Mail pt copy of MRI and referral to PT with the # CT CARE STAFFER Jessi Reina PA-C - 01/13/2017 5:05 PM CST Called pt and discussed her MRI She has some R hip pain and intermittent numbness and tingling Recd trial of PT She's had pain for 8 months. She'd like the results and referral to PT mailed. CT CARE STAFFER documented in this encounter Plan of Treatment Upcoming Encounters Date Type Specialty Care Team Description 10/26/2022 Lab Oncology Yris Perez MD [address] [address] (Wo rk) 11/03/2022 Oncology Visit Oncology Yris Perez MD [address] [address] (Wo rk) documented as of this encounter Procedures Procedure Name Priority Date/Time Associated Diagnosis Comme nts MR LUMBAR SPINE W/O Routine 01/13/2017 10:56 AM Right hip pain Results for this CONTRAST DIRECT CARE STAFFER procedure are i n the results section. documented in this encounter Results MR Lumbar Spine w/o Contrast (01/13/2017 10:56 AM DIRECT CARE STAFFER) Anatomical Region Laterality Modality Spine, SUBRAD MR MSK, UMP MR SPINE Magne tic Resonance Specimen (Source) Anatomical Location Collection Method / Collectio n Time Received Time / Laterality Volume Impressions 01/13/2017 4:45 PM DIRECT CARE STAFFER IMPRESSION: 1. Degenerative disc disease T12-L1 with [...] SHANKAR MIRZA MD Narrative 01/13/2017 4:45 PM DIRECT CARE STAFFER MR LUMBAR SPINE WITHOUT CONTRAST January 13, [...] MD Simon Claros MD IMG MRI ORDERABLES documented in this encounter Visit Diagnoses Diagnosis Right hip pain Pain in joint, pelvic region and thigh documented in this encounter Additional Health Concerns Infection Onset Date Last Indicated Resolved Time 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, 01/08/2017 9 06/08/17, 08/26/17 documented as of this encounter Care Teams Design Cell Engineer Relationship Specialty Start Date End Date Simon Claros MD PCP - General Internal Medicine 09/22/12 08/20/21 Simon Claros MD PCP - Assigned PCP 06/18/16 01/17/19 [address] [place] [phone] Simon Claros MD Assigned PCP 06/18/16 03/01/21 [address] [place] [address] documented as of this encounter
--- OUTSIDE RECORDS SUMMARY | 2022-08-20 14:29 | XMS_ITS | Encounter Summary ---
:1945 Author Organization [place] Address [address] [facility] [place] [address] Care Team Providers Name Role Phone Simon Claros MD Primary Care Provider Reason for Visit Reason Onset Date Comments Results 06/12/2016 Encounter Details Date Type Department Care Team Description 06/12/2016 Telephone [facility] Simon Claros MD Results [address] No [facility] [address] [address] [phone] [place] [address] (Wo rk) Social History Tobacco Use Types Packs/Day Years Used Date Passive Smoke Exposure - Never Smoker Alcohol Use Standard Drinks/Week Comments No 0 (1 standard drink = 0.6 oz pure alcoho l) Sex Assigned at Date Recorded Female 01/27/2022 12:36 PM CDT documented as of this encounter Miscellaneous Notes Telephone Encounter - Lou White RN - 06/12/2016 11:59 AM CDT Notes Recorded by Erasmo Gallo PA on 06/12/2016 at 11:25 AM Please inform patient about culture results which grew bacteria RESISTANT to the antibiotic prescribed. He/she should stop the current antibiotic and start the new one I will order today. Patient should contact clinic if symptoms persist or worsen. Spoke with patient and informed of above result not information - patient verbalized good understanding. Patient reported that she is currently driving her car right now and will not be back to town for several days. Therefore, patient requested that prescription be sent to the [facility] in [facility]. Pharmacy information was updated and prescription was resent per [facility] [place]. This nurse pharmacy that prescription was originally sent to and requested that original prescription for Cephalexin be cancelledas it had been resent to a different pharmacy per patient request. Lou White RN documented in this encounter Plan of Treatment Upcoming Encounters Date Type Specialty Care Team Description 10/26/2022 Lab Oncology Yris Perez MD [address] [address] (Wo rk) 11/03/2022 Oncology Visit Oncology Yris Perez MD [address] [address] (Wo rk) documented as of this encounter Visit Diagnoses Diagnosis UTI symptoms - Primary documented in this encounter Care Teams Plastics Heat Welder Relationship Specialty Start Date End Date Simon Claros MD PCP - General Internal Medicine 09/22/12 08/20/21 documented as of this encounter
--- OUTSIDE RECORDS SUMMARY | 2022-08-20 14:29 | XMS_ITS | Encounter Summary ---
:1945 Author Organization [place] Address [address] [place] [address] Care Team Providers Name Role Phone Simon Claros MD Primary Care Provider Simon Claros MD Unavailable Simon Claros MD Unavailable Reason for Visit (Routine) - Closed Specialty Diagnoses / Procedures Referred By Contact Refer red To Contact Radiology / Radiology. Diagnoses [facility] Procedures MA DIAGNOSTIC RT W/ BETO [address] [facility], [address] [place] [address] Phone: Referral ID Status Reason Start Date Expiration Date Visits Requ ested Visits Authorized [id number] Closed 01/21/2017 01/21/2018 1 1 Encounter Details Date Type Department Care Team Description 01/25/2017 Hospital Encounter M [facility] Simon Claros, Abnormal mammogram Rocco Breast MD [place] [address] [facility] [address], [address] [place] [phone] Social History Tobacco Use Types Packs/Day Years [...] by mouth 0 10/2017 daily LIPOSOMAL CURCUMIN [employer]-3 Fatty Acids Take 6 mLs by mouth 0 08/26/2017 (OMEGA ESSENTIALS BASIC) daily LIQD documented as of this encounter Plan of Treatment Upcoming Encounters Date Type Specialty Care Team Description 10/26/2022 Lab Oncology Yris Perez MD [address] [place] [phone] (Madeleine rk) 11/03/2022 Oncology Visit Oncology Yris Perez MD [address] [phone] (Madeleine rk) documented as of this encounter Procedures Procedure Name Priority Date/Time Associated Comments Diagnosis MA DIAGNOSTIC Routine 01/25/2017 10:57 AM Abnormal mammogram R esults for this DIGITAL RIGHT CDT procedure are in the results section. documented in this encounter Results MA Diagnostic Digital Right (01/25/2017 10:57 AM CDT) Anatomical Region Laterality Modality Breast Right Mammography Specimen (Source) Anatomical Location Collection Method / Collectio n Time Received Time / Laterality Volume Impressions 01/25/2017 11:14 AM CDT IMPRESSION: BI-RADS CATEGORY: 4 - Suspicious. Indeterminate microcalcifications at the 1:00 position, as above. Stereotactic core biopsy is recommended. Results and recommendation for biopsy were discussed with the patie nt during her appointment. RECOMMENDED FOLLOW-UP: Biopsy. LENNIE FOLEY MD Narrative 01/25/2017 11:14 AM CDT MA DIAGNOSTIC DIGITAL RIGHT- 01/25/2017 HISTORY: ??Recalled from screening mammo gram of 01/13/2017 regarding right upper breast calcifications and fo patrica asymmetry in the medial right breast. COMPARISON: ??Screening mammograms 017, 01/08/2016, 11/28/2014. BREAST DENSITY: Heterogeneously dense. FINDINGS: ??Magnification views of the r ight breast were obtained. These redemonstrate the screening detect ed microcalcifications. The cluster is at the 1:00 position, approxi mately 8 cm from the nipple, measuring 1.0 cm. The more medial area o f asymmetry seen on the screening mammogram is also redemonstrat ed but does not appear significantly changed from previous mamm ograms dating back to 2005. Simon Claros MD IMG MAMMOGRAPHY ORDERABLES documented in this encounter Visit Diagnoses Diagnosis Abnormal mammogram Abnormal mammogram, unspecified documented in this encounter Additional Health Concerns Infection Onset Date Last Indicated Resolved Time 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, 01/08/2017 9 06/08/17, 08/26/17 documented as of this encounter Care Teams Die Cast Technician Relationship Specialty Start Date End Date Simon Claros MD PCP - General Internal Medicine 09/22/12 08/20/21 Simon Claros MD PCP - Assigned PCP 06/18/16 01/17/19 [address] [place] [phone] Simon Claros MD Assigned PCP 06/18/16 03/01/21 [address] [place] [phone] documented as of this encounter
--- OUTSIDE RECORDS SUMMARY | 2022-08-20 14:30 | XMS_ITS | Encounter Summary ---
:1945 Author Organization [place] Address [address] [place] [address] Care Team Providers Name Role Phone Simon Claros MD Primary Care Provider Encounter Details Date Type Department Care Team Description 10/05/2012 Results Only INTERFACED REPORT Simon Claros MD [address] [place] [address] (Wo rk) Social History Tobacco Use Types Packs/Day Years Used Date Never Assessed Sex Assigned at Date Recorded Female 01/27/2022 12:36 PM CDT documented as of this encounter Plan of Treatment Upcoming Encounters Date Type Specialty Care Team Description 10/26/2022 Lab Oncology Yris Perez MD [address] [phone] (Wo rk) 11/03/2022 Oncology Visit Oncology Yris Perez MD [address] [phone] (Wo rk) documented as of this encounter Procedures Procedure Name Priority Date/Time Associated Diagnosis Comme nts MA SCREENING 10/05/2012 3:28 PM Results f or this DIGITAL BILATERAL ARMHOLE BASTER JUMPBASTING procedure are in the results section. documented in this encounter Results Mammo Screening digital (bilat) (10/05/2012 3:28 PM ARMHOLE BASTER JUMPBASTING) Anatomical Region Laterality Modality Breast Bilateral Other Specimen (Source) Anatomical Collection Method Collection Time Re ceived Time Location / / Volume Laterality 10/05/2012 3:28 PM ARMHOLE BASTER JUMPBASTING Impressions 10/12/2012 10:40 AM ARMHOLE BASTER JUMPBASTING IMPRESSION: BIRADS 1, NEGATIVE. RECOMMENDATION: Recommend annual screeni ng mammography. Exam results letter mailed to patient. STEFFANIE RAYO MD Narrative 10/12/2012 10:40 AM ARMHOLE BASTER JUMPBASTING SCREENING MAMMOGRAM, BILATERAL, DIGITAL w/CAD - 10/05/2012 3:28 PM BREAST SYMPTOMS: No current breast compl aints. COMPARISON: ??Prior mammograms in 2005. PARENCHYMAL PATTERN: Heterogeneously den se, limiting mammographic sensitivity. COMMENTS: No findings of suspicion for m alignancy. Procedure Note Steffanie Rayo MD - 10/12/2012 SCREENING MAMMOGRAM, BILATERAL, DIGITAL w/CAD - 10/05/2012 3:28 PM BREAST SYMPTOMS: No current breast compl aints. COMPARISON: Prior mammograms in 2005. PARENCHYMAL PATTERN: Heterogeneously den se, limiting mammographic sensitivity. COMMENTS: No findings of suspicion for m alignancy. IMPRESSION IMPRESSION: BIRADS 1, NEGATIVE. RECOMMENDATION: Recommend annual screeni ng mammography. Exam results letter mailed to patient. STEFFANIE RAYO MD Simon Claros MD IMG MAMMOGRAPHY ORDERABLES documented in this encounter Visit Diagnoses Not on filedocumented in this encounter Care Teams Housekeeper Head Relationship Specialty Start Date End Date Simon Claros MD PCP - General Internal Medicine 09/22/12 08/20/21 documented as of this encounter
--- OUTSIDE RECORDS SUMMARY | 2022-08-20 14:30 | XMS_ITS | Encounter Summary ---
:1945 Author Organization [place] Address [address] [place] [address] Care Team Providers Name Role Phone Simon Claros MD Primary Care Provider Reason for Visit (Routine) - Closed Specialty Diagnoses / Procedures Referred By Contact Refer red To Contact Radiology / Radiology. Diagnoses prev here Sh Breast Imaging Procedures MA SCREENING DIGITAL BILATERAL [address] [facility], [address] [place] [address] Phone: Referral ID Status Reason Start Date Expiration Date Visits Requ ested Visits Authorized [id number] Closed 01/01/2016 12/31/2016 1 1 Encounter Details Date Type Department Care Team Description 01/08/2016 Hospital Encounter [facility] Simon Claros for screening Clarencerowena Jeannette Sr MD mammogram Center [address] [facility] [address] [facility] [address], [address] [place], [place] [phone] Social History Tobacco Use Types Packs/Day Years Used Date Passive Smoke Exposure - Never Smoker Alcohol Use Standard Drinks/Week Comments No 0 (1 standard drink = 0.6 oz pure alcoho l) Sex Assigned at Date Recorded Female 01/27/2022 12:36 PM CDT documented as of this encounter Medications at Time of Discharge Medication Sig Dispensed Refills Start Date End Date UEU-Pijl-HaTvhp-MgHydr-S Take 10 mLs by mouth 0 0 07/17/2012 01/25/2017 imeth (FIRST-MOUTHWASH BLM) SUSP predniSONE (DELTASONE) Take two tablets (= 8 tablet 0 08/1502/24/2016 20 MG tablet 40mg) each day for 4 (four) days starting tomorrow. You received your first dose in ED 08/01. documented as of this encounter Plan of Treatment Upcoming Encounters Date Type Specialty Care Team Description 10/26/2022 Lab Oncology Yris Perez MD [address] [facility] [address] [place] [address] (Wo rk) 11/03/2022 Oncology Visit Oncology Yris Perez MD [address] [facility] [address] [place] [address] (Wo rk) documented as of this encounter Procedures Procedure Name Priority Date/Time Associated Diagnosis Comme nts MA SCREENING Routine 01/08/2016 11:57 AM Visit for screening R esults for this DIGITAL BILATERAL HIDE TANNER mammogram procedure are in the results section. documented in this encounter Results MA Screening Digital Bilateral (01/08/2016 11:57 AM HIDE TANNER) Anatomical Region Laterality Modality Breast Bilateral Mammography Specimen (Source) Anatomical Location Collection Method / Collectio n Time Received Time / Laterality Volume Impressions 01/08/2016 1:34 PM HIDE TANNER IMPRESSION: BI-RADS CATEGORY: 1 - Negative. RECOMMENDED FOLLOW-UP: Annual Mammograph y. Recommend routine annual screening mammo graphy. Exam results letter mailed to patient. STEFFANIE RAYO MD Narrative 01/08/2016 1:34 PM HIDE TANNER SCREENING MAMMOGRAM, BILATERAL, DIGITAL w/CAD - 01/08/2016 11:57 AM. BREAST SYMPTOMS: No current breast compl aints. COMPARISON: ??11/28/2014, 10/05/2012, . BREAST DENSITY: Heterogeneously dense. COMMENTS: No findings of suspicion for m alignancy. ? Procedure Note Steffanie Rayo MD - 01/08/2016 SCREENING MAMMOGRAM, BILATERAL, DIGITAL w/CAD - 01/08/2016 11:57 AM. BREAST SYMPTOMS: No current breast compl aints. COMPARISON: 11/28/2014, 10/05/2012, 02/2006. BREAST DENSITY: Heterogeneously dense. COMMENTS: No findings of suspicion for m alignancy. IMPRESSION: BI-RADS CATEGORY: 1 - Negati ve. RECOMMENDED FOLLOW-UP: Annual Mammograph y. Recommend routine annual screening mammo graphy. Exam results letter mailed to patient. STEFFANIE RAYO MD Simon Claros MD IMG MAMMOGRAPHY ORDERABLES documented in this encounter Visit Diagnoses Diagnosis Visit for screening mammogram Other screening mammogram documented in this encounter Care Teams Radio Operator Relationship Specialty Start Date End Date Simon Claros MD PCP - General Internal Medicine 09/22/12 08/20/21 documented as of this encounter
--- OUTSIDE RECORDS SUMMARY | 2022-08-20 14:30 | XMS_ITS | Encounter Summary ---
:1945 Author Organization [place] Address [address] [facility] [address] Care Team Providers Name Role Phone Simon Claros MD Primary Care Provider Encounter Details Date Type Department Care Team Description 11/28/2014 Hospital Encounter [facility] Simon Claros [facility] er screening Clarencerosalio Sr MD mammogram Center [address] [place] [address], [address] [place] [address] [phone] Social History Tobacco Use Types Packs/Day Years Used Date Never Assessed Sex Assigned at Date Recorded Female 01/27/2022 12:36 PM CDT documented as of this encounter Medications at Time of Discharge Medication Sig Dispensed Refills Start Date End Date KFA-Oodn-FfGdic-MgHydr-Si Take 10 mLs by mouth 0 07/17/2012 01/25/2017 meth (FIRST-MOUTHWASH BLM) SUSP documented as of this encounter Plan of Treatment Upcoming Encounters Date Type Specialty Care Team Description 10/26/2022 Lab Oncology Yris Perez MD [address] [address] (Madeleine rk) 11/03/2022 Oncology Visit Oncology Yris Perez MD 420 [facility] [address] [place] [address] (Madeleine proctor) documented as of this encounter Procedures Procedure Name Priority Date/Time Associated Diagnosis Comme nts MA SCREENING Routine 11/28/2014 3:33 PM Other screening Result s for this DIGITAL BILATERAL FUSE CUP EXPANDER mammogram procedure are in the results section. documented in this encounter Results MA Screening Digital Bilateral (11/28/2014 3:33 PM FUSE CUP EXPANDER) Anatomical Region Laterality Modality Breast Bilateral Mammography Specimen (Source) Anatomical Location Collection Method / Collectio n Time Received Time / Laterality Volume Impressions 11/28/2014 3:48 PM FUSE CUP EXPANDER IMPRESSION: BI-RADS CATEGORY: 1 - ??Negative RECOMMENDED FOLLOW-UP: Annual Mammograph y. Exam results letter mailed to patient. ?? NIRANJAN ESCOBEDO MD Narrative 11/28/2014 3:48 PM FUSE CUP EXPANDER SCREENING MAMMOGRAM, BILATERAL, DIGITAL w/CAD - 11/28/2014 3:33 PM BREAST SYMPTOMS: No current breast compl aints. COMPARISON: ??10/05/2012, 02/16/2006. BREAST DENSITY: Heterogeneously dense. COMMENTS: No findings of suspicion for m alignancy. ? Procedure Note Niranjan Escobedo MD - 11/28/2014For matting of this note might be different from the original. SCREENING MAMMOGRAM, BILATERAL, DIGITAL w/CAD - 11/28/2014 3:33 PM BREAST SYMPTOMS: No current breast compl aints. COMPARISON: 10/05/2012, 02/16/2006. BREAST DENSITY: Heterogeneously dense. COMMENTS: No findings of suspicion for m alignancy. IMPRESSION IMPRESSION: BI-RADS CATEGORY: 1 - Negati ve RECOMMENDED FOLLOW-UP: Annual Mammograph y. Exam results letter mailed to patient. NIRANJAN ESCOBEDO MD Simon Claros MD IMG MAMMOGRAPHY ORDERABLES documented in this encounter Visit Diagnoses Diagnosis Other screening mammogram documented in this encounter Care Teams Collar Stitcher Relationship Specialty Start Date End Date Simon Claros MD PCP - General Internal Medicine 09/22/12 08/20/21 documented as of this encounter
--- OUTSIDE RECORDS SUMMARY | 2022-08-20 14:30 | XMS_ITS | Encounter Summary ---
:1945 Author Organization [facility] Address [address] [place] [address] Care Team Providers Name Role Phone Simon Claros MD Primary Care Provider Reason for Visit Auth/Cert Specialty Diagnoses / Procedures Referred By Contact Refer red To Contact Surgery Diagnoses RIGHT HIP DJD Sh Periop Services Procedures ARTHROPLASTY HIP ANTERIOR [address] [place] [address] Phone: Referral ID Status Reason Start Date Expiration Date Visits Requ ested Visits Authorized [id number] 1 1 Encounter Details Date Type Department Care Team Description 03/10/[address] [facility] Andrey Estevez, RIGHT TOTAL HIP [place] PeriOP ARTHROPLASTY ANTERIOR Services [facility] [address] [place] [address] [address] [place], [place] [id number] (Wo rk) Surgery Details Date/Time Status Location OR Service Patient Case Case Traum a Class Class Type Case? 03/10/16 10:50 Posted OR OR M Orthopedics Surgery AM 34 Admit Panel 1 Procedure LRB Anes Op Region Wound Class Commen ts RIGHT TOTAL HIP Right General Hip I-Clean RIGHT TOT AL HIP ARTHROPLASTY ANTERIOR ART HROPLASTY ANTERIOR APPROACH APPROACH Surgeon Surgeon Role Service Panel Andrey Estevez MD Primary Orthopedics 1 Zari Peterson PA-C Assisting Leg Breaker Author ization 1 documented in this encounter Social History Tobacco Use Types Packs/Day Years Used Date Passive Smoke Exposure - Never Smoker Alcohol Use Standard Drinks/Week Comments No 0 (1 standard drink = 0.6 oz pure alcoho l) Sex Assigned at Date Recorded Female 01/27/2022 12:36 PM CDT documented as of this encounter Last Filed Vital Signs Vital Sign Reading Time Taken Comments Blood Pressure 149/95 03/10/2016 2:10 PM CDT Pulse 75 03/10/2016 9:00 AM CDT Temperature 36.6 ??C (97.9 ??F) 03/10/2016 1:38 PM CDT Respiratory Rate 13 03/10/2016 2:10 PM CDT Oxygen Saturation 98% 03/10/2016 2:10 PM CDT Inhaled Oxygen Concentration - - [...] 2 weeks from surgery. She may call [phone] to schedulean appointment. Meds: Darshana Brooks Home Medication Instructions [place]:[id number] Printed on:04/07/16 9817 Medication Information albuterol (PROAIR HFA, PROVENTIL HFA, [...] 6 mLs by mouth daily LIPOSOMAL CURCUMIN [place]-3 Fatty Acids (OMEGA ESSENTIALS BASIC) LIQD Take [...] will be removed at this appointment. Call [phone] to schedule your appointment. Dr Claros wants [...] complete) picked up from pharmacy on 03/05/16 PMH-Ymbv-ZnBalk-MgHydr-S Take 10 mLs by mouth 0 0 07/17/2012 01/25/2017 imeth (FIRST-MOUTHWASH BLM) SUSP LISINOPRIL PO Take 10 mg by mouth 0 daily Naproxen Sodium (ALEVE Take 220-440 mg by 0 07/03/2016 PO) mouth 2 times daily as needed for moderate pain NONFORMULARY Take 1 Tablespoonful 0 10 /10/2017 by mouth daily ALL NATURAL GREENS NONFORMULARY Take 29 mLs by mouth 0 daily LIQUIDRIVE ANTIOXIDENT (1 ounce) NONFORMULARY Take 5 mLs by mouth 0 10/2017 daily LIPOSOMAL GLUTATHIONE NONFORMULARY Take 6 mLs by mouth 0 10/2017 daily LIPOSOMAL CURCUMIN [place]-3 Fatty Acids Take 6 mLs by mouth [...] as of this encounter Progress Notes Ashley Hennessy RN - 03/11/2016 5:00 PM CDT Patient discharged via w.chair with transportation security screener, is ride home, both were present for discharge insructions, meds given IV removed. Ashley Hennessy, ODESSA - 03/11/2016 2:[address] Claros [...] Bed to Chair/Chair to Bed Level of [place]: Bed to Chair stand-by assist Assistive Device - Transfer Skill Bed to Chair Chair to Bed Rehab Eval standard walker Transfer Skill: Sit to Stand Level of [place]: Sit/Stand stand-by assist Assistive Device for Transfer: Sit/Stand standard walker Transfer Skill: Toilet Transfer Level of [place]: Toilet stand-by assist Assistive Device standard walker;seat riser Bathing Level of [place] stand-by assist Assistive Device shower chair Upper Body Dressing Level of [place]: Dress Upper Body independent Lower Body Dressing Level of [place]: Dress Lower Body stand-by assist Toileting Level of [place]: Toilet stand-by assist Grooming Level of [place]: Grooming stand-by assist (while standing ) Eating/Self Feeding Level of [place]: Eating independent Instrumental Activities of Daily Living [...] in agreement with plan of care Yes [facility]??? 6 Clicks ?? 2007, Trustees of [facility], under license to [employer]. All rights reserved. 6 Clicks Short Forms Daily Activity Inpatient Short Form [facility]??? 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 Josr Herrera Process Improvement Engineer Pager # [phone] Andrey Estevez MD - 03/11/2016 1:31 PM [...] Anticipate discharge to home today. Andrey Sullivan [phone] Kim Vincent, PT - 03/11/2016 10:46 AM [...] in agreement with plan of care Yes [facility] AM-PAC??? 6 Clicks ?? 2007, Trustees of [facility], under license to [employer]. All rights reserved. 6 Clicks Short Forms Basic Mobility Inpatient Short Form [facility] AM-PAC??? 6 Clicks Basic Mobility Inpatient Short [...] AMY COPD P)Cont. As per protocol Thalia Acosta, ODESSA - 03/10/2016 4:20 PM CDT Patient had hospitalist consult placed but leader writer was notified that she is a patient of Dr. Aj. Hot Plate Press Operator confirmed with office that Dr. Claros would see patient in hospital. ELT Maggie Fleming - 03/10/2016 9:01 AM CDT Admission medication history interview status for the 03/10/2016 admission is complete. See [facility] admission navigator for prior to admission medications Medication history source reliability:Good Medication history interview source(s):Patient Medication history resources (including written lists, pill bottles, clinic record):Patient mailed in list prior to surgery & Verified Ciprofloxacin 500mg BID with [facility] Primary pharmacy.[facility] Additional medication history information not noted on PSYCH NURSE med list :None Time spent in this [...] daily 03/03/2016 at AM Yes Reported, Patient [place]-3 Fatty Acids (OMEGA ESSENTIALS BASIC) LIQD Take [...] OF SERVICE: 03/10/2016 SURGEON ANDREY SULLIVAN M.D. VASCULAR ULTRASOUND TECHNOLOGIST Zari Peterson PA-C. PREOPERATIVE DIAGNOSIS Right hip osteoarthritis, failed to respond to conservative management. POSTOPERATIVE DIAGNOSIS Right hip osteoarthritis, failed to respond to conservative management. TITLE OF PROCEDURE Right total hip arthroplasty, Depuy uncemented components, direct anterior approach. PROCEDURE The patient was brought to the operating room and after satisfactory anesthesia was placed on the Pisek table. The right lower extremity was then [...] aid of image intensification. A 56 mm [place] cup was impacted into place in approximately [...] and found to have good length and episcopal of offset. It was felt that an [...] goal(s). See goals on Care Plan in [facility] electronic health record for goal details. [...] for ADL/IADLs. Plan of Care - Ashley Hennessy RN - 03/11/2016 1:17 PM CDT Problem: Hip [...] this evening. Plan of Care - Kim Vincent, PT - 03/11/2016 10:58 AM CDT Problem: [...] monitor. , Plan of Care - Thalia Acosta, ODESSA - 03/10/2016 10:31 PM CDT Problem: Goal [...] Estevez MD - 03/10/2016 1:47 PM CDT [facility] Brief Operative Note Pre-operative diagnosis: RIGHT [...] Lab Oncology Yris Perez MD [address] [id number] (Wo hitesh) 11/03/2022 Oncology Visit Oncology Yris Perez MD [address] [address] (Wo rk) documented as of this encounter [...] n the results section. LAB RESULT - [facility] 03/05/2016 12:00 AM SCAN CDT EKG CARDIAC - [facility] 12/31/2015 12:00 AM SCAN MARGIN ANALYST documented in this encounter Results (ABNORMAL) Hemoglobin (03/11/2016 6:15 AM CDT) athologist Signature Hemoglobin 10.7 (L) 11.7 - 15.7 [place] g/dL [facility] Specimen Anatomical Collection Method Collection Time Receive d Time (Source) Location / / Volume Laterality Blood specimen 03/11/2016 6:15 AM 016 8:36 (specimen) CDT AM CDT Andrey Estevez MD LAB - BLOOD ORDERABLES Performing Organization Address City/State/ZIP Code Phon e Number M [facility] [address] [address] [facility] [address] [address], [place] [phone] (ABNORMAL) Glucose (03/11/2016 3:15 AM CDT) athologist Signature Glucose 130 (H) 70 - 99 [place] mg/dL [facility] Specimen Anatomical Collection Method Collection Time Receive d Time (Source) Location / / Volume Laterality Blood specimen 03/11/2016 3:15 AM 016 6:23 (specimen) CDT AM CDT Andrey Estevez MD LAB - BLOOD ORDERABLES Performing Organization Address City/[facility]/ZIP [facility] Phon e Number [facility] [address] [place] [address] [facility] [address] [place] [address], [place] [phone] XR Post Surgical Imaging (03/10/2016 2:44 PM [...] arthroplasty. NIRANJAN ESCOBEDO MD Andrey Estevez MD IMRicki DIAGNOSTIC IMAGING ORDER [place] XR Surgery JAYY L/T 5 Min Fluoro w Stills (03/10/2016 1:05 PM CDT) Specimen (Source) Anatomical Location Collection Method / Collectio n Time Received Time / Laterality Volume Impressions RADIANT - 03/10/2016 1:18 PM CDT exam was marked as non-reportable because it will not be read by a radiologist or a [facility] non-radiologis t provider. Narrative RADIANT - 03/10/2016 1:18 PM CDT This Andrey BOLIVAR DIAGNOSTIC IMAGING ORDER [place] Performing Organization Address City/State/[facility] Phon e Number RADIANT Platelet count (03/10/2016 9:25 AM CDT) P athologist Signature Platelet Count 232 150 - 450 [place] 10e9/L [facility] Specimen Anatomical Collection Method Collection Time Receive d Time (Source) Location / / Volume Laterality 03/10/2016 9:25 AM 6 9:37 CDT AM CDT Zari Peterson PA-C LAB - BLOOD ORDERABLES Performing Organization Address City/State/ZIP Code Phon e Number M [facility] [address] [place] [address] [facility] [address] [place] [address], [place] [phone] Potassium (03/10/2016 9:25 AM CDT) athologist Signature Potassium 4.1 3.4 - 5.3 [place] mmol/L [facility] Specimen Anatomical Collection Method Collection Time Receive d Time (Source) Location / / Volume Laterality Blood specimen 03/10/2016 9:25 AM 016 9:37 (specimen) CDT AM CDT Yancy Healy MD LAB - BLOOD ORDERABLES Performing Organization Address City/State/ZIP Code Phon e Number [facility] [address] [place] [address] [facility] [address] [place] [address], [place] [phone] ABO/Rh type and screen (03/10/2016 9:25 AM CDT) Patholo gist Method Time Signature ABO O [facility] RH(D) Pos [facility] Antibody Neg [place] Screen [facility] Test Valid [facility] Specimen 03/13/2016 [place] Expires [facility] Specimen Anatomical Collection Method Collection Time Receive d Time (Source) Location / / Volume Laterality Blood specimen 03/10/2016 9:25 AM 016 9:39 (specimen) CDT AM CDT Zari Peterson PA-C LAB - BLOOD BANK TEST OR ANNA Performing Organization Address City/State/ZIP Code Phon e Number [facility] [address] [place] [address] [facility] [address] [place] [address], [place] [phone] Creatinine (03/10/2016 9:25 AM CDT) athologist Signature Creatinine 0.91 0.52 - 1.04 [place] mg/dL [facility] GFR Estimate 61 >60 [place] mL/min/1.7m [address] Comment: Non GFR Calc GFR Estimate If Black 74 >60 mL/min/1.7m2 F [facility] Comment: GFR Calc Specimen Anatomical Collection Method Collection Time Receive d Time (Source) Location / / Volume Laterality Blood specimen 03/10/2016 9:25 AM 016 9:37 (specimen) CDT AM CDT Zari Peterson PA-C LAB - BLOOD ORDERABLES Performing Organization Address City/State/ZIP Code Phon e Number [facility] [address] [address] [facility] [address] [place] [address], [place] [phone] Hemoglobin (03/10/2016 9:25 AM CDT) athologist Signature Hemoglobin 14.0 11.7 - 15.7 [place] g/dL [facility] Specimen Anatomical Collection Method Collection Time Receive d Time (Source) Location / / Volume Laterality Blood specimen 03/10/2016 9:25 AM 016 9:37 (specimen) CDT AM CDT Zari Peterson PA-C LAB - BLOOD ORDERABLES Performing Organization Address City/State/ZIP Code Phon e Number M [facility] [address] [place] [address] [facility] [address] [place] [address], [place] [phone] LAB RESULT - HIM SCAN (03/05/2016 12:00 AM CDT) Specimen (Source) Anatomical Location Collection Method / Collectio n Time Received Time / Laterality Volume 03/05/2016 Narrative This result has an attachment that is no t available. Provider Outside NON-BEAKER LAB TESTING EKG CARDIAC - HIM SCAN (12/31/2015 12:00 AM MARGIN ANALYST) Specimen (Source) Anatomical Location Collection Method / [...] MAR Action Action Date Dose Rate Site Bupivacaine-Epinephrine Given 03/10/2016 1:13 PM 60 mLs Operative (PF) 0.5% -1:346377 CDT Site/ Surgical Site injection PRN, Starting on Wed03/10/16 at 1313, Intra-procedure ceFAZolin 1000 mg + Given 03/10/2016 11:55 AM 1,000 mLs Operative gentamicin 120 mg + NaCl CDT Site/Surgical Site 0.9% 1000 mL Bag PRN, Starting on Wed03/10/16 at 1155, Intra-procedure ketorolac (TORADOL) Given 03/10/2016 1:13 PM 30 mg Operative Site/Surgical injection CDT Site PRN, Starting on Wed03/10/16 at 1313, Intra-procedure skin closure adhesive Given 03/10/2016 1:14 PM 1 applicator Operative (DERMABOND) CDT Site/Surgical S ite PRN, Starting on Wed03/10/16 at 1314, Intra-procedure documented in this encounter Active and [...] 1310 (Given - Provider: Ruchi Ferrer APRN DIRECTOR OF FOOD AND NUTRITION) 1 g, Intravenous, SEE ADMIN INSTRUCTIONS , [...] RN)1110 (Given - Provider: Ion Kerr APRN CRNA)1306 (Given - Provider: Ion Kerr APRN CRNA) 2 g, Intravenous, PRE-OP/PRE-PROCEDURE, Starting Wed03/10/16 at 0859, For 1 dose, Give first dose within 1 hour PRIOR to incision. If patient weight is greater than or equal to 120 kg increase dose to 3 g., Indications: Surgical Prophylaxis, Pre-procedure enoxaparin (LOVENOX) injection 40 mg (CANCELED) 815 (Given - Provider: Ashley Hennessy, DOESSA) 40 mg, Subcutaneous, EVERY 24 HOURS, Fir [...] (OxyCONTIN) 12 hr tablet 10 mg (COMPLETED) 100 (Given - Provider: Masha Kunz RN) 10 [...] Kerr APRN CRNA) 1 g, Intravenous, ONCE, 03/10/16 at 0 900, For 1 dose, Each [...] lock when PO well tolerated., Post-procedure, Starting 03/10/16 at 1545, Until 03/11/16 at 0711 lactated ringers infusion (CANCELED) 100 4 (New Bag - Provider: Masha Kunz RN)1128 (New Bag - Provider: Ion Kerr APRN CRNA)1203 (Anesthesia Volume Adjustment - Provider: Ion Kerr APRN CRNA)1229 (New Bag - Provider: Ion Kerr APRN CRNA) at 25 mL/hr, Intravenous, CONTINUOUS, IF patient NOT on dialysis., Starting 03/10/16 at 0900, Until 03/10/16 at 1618 1339 (Anest hesia Volume Adjustment - Provider: Ruchi Ferrer APRN CRNA) lactated ringers infusion (CANCELED) 141 6 (New Bag - Provider: Jennifer Harden RN) at 100 mL/hr, Intravenous, CONTINUOUS, C ontinue until IV catheter is weaned, Starting 03/10/16 at 1330, Until 03/10/16 at 1618 PRN Medication Order 03/09/2016 03/10/2016 03/11/2016 albuterol (PROAIR HFA, PROVENTIL HFA, VENTOLIN HFA) inhaler 2 pu ff (CANCELED) 0837 (Given - Provider: Ashley Hennessy, RN) 2 puff, Inhalation, EVERY 6 HOURS PRN, wheezing, Starting Wed at 0711 Bupivacaine-Epinephrine (PF) 0.5% -1:613328 injection (CANCE LED) 1313 (Given - Provider: [...] (CANCELED) 1424 (Given - Provider: Jennifer Harden, ODESSA) 0.3-0.5 mg, Intravenous, EVERY 5 MIN PRN [...] 60ml 0.5% bupivicaine with epi) PRN, Starting Wed03/10/16 at 1313, Intra-procedure ondansetron (ZOFRAN) injection 4 mg (CANCELED) 1359 (Given - Provider: Jennifer Harden, ODESSA) 4 mg, Intravenous, EVERY 30 MIN PRN, naida sea, for 2 Minutes, Starting Wed03/10/16 at 1321, For 2 doses, MAX total dose = 8 mg, including OR dosing. If not resolved in 15 minutes, then go to step 2 (Prochlorperazine if ordered). ondansetron (ZOFRAN) injection 4 mg (CANCELED) 2136 (Given - Provider: Thalia Acosta, ODESSA) 4 [...] end of dosing range. Hold while on CHAINSAW MECHANIC or with regular IV opioid dosing., Post-procedure prochlorperazine (COMPAZINE) injection 5 mg (CANCELED) 1419 (Given - Provider: Jennifer Harden, ODESSA) 5 mg, Intravenous, EVERY 6 HOURS PRN, na usea, vomiting, Starting 03/10/16 at 1418, PACU skin closure adhesive (DERMABOND) (CANCELED) 1314 (Given - Provider: Andrey Estevez MD) PRN, Starting 03/10/16 at 1314, Intra-procedure documented in this encounter Care Teams Admissions Dean Relationship Specialty Start Date End Date Simon Claros MD PCP - General Internal Medicine 09/22/12 08/20/21 documented as of this encounter
--- OUTSIDE RECORDS SUMMARY | 2022-08-20 14:30 | XMS_ITS | Encounter Summary ---
:1945 Author Organization [facility] Address [address] [place] [address] Care Team Providers Name Role Phone Simon Claros MD Primary Care Provider Reason for Visit (Routine) - Closed Specialty Diagnoses / Procedures Referred By Contact Refer red To Contact Radiology Diagnoses SCREENING BILATERAL-DIGITAL Procedure Notes: ANNUAL Breast Imaging Procedures RADIOLOGY [address], [address] [place] [address] Phone: Referral ID Status Reason Start Date Expiration Date Visits Requ ested Visits Authorized [id number] Closed 09/22/2012 09/22/2013 1 1 Encounter Details Date Type Department Care Team Description 10/05/2012 Hospital Encounter [facility] Faisal Claros MD [facility] [address] [facility] [address] [facility] [address], [address] [place] [phone] (Wo rk) Social History Tobacco Use Types Packs/Day Years Used Date Never Assessed Sex Assigned at Date Recorded Female 01/27/2022 12:36 PM CDT documented as of this encounter Medications at Time of Discharge Medication Sig Dispensed Refills Start Date End Date WIH-Bith-ZnGiav-MgHydr-Si Take 10 mLs by mouth 0 07/17/2012 01/25/2017 meth (FIRST-MOUTHWASH BLM) SUSP documented as of this encounter Plan of Treatment Upcoming Encounters Date Type Specialty Care Team Description 10/26/2022 Lab Oncology Yris Perez MD [address] [facility] [address] [place], [place] [address] (Wo rk) 11/03/2022 Oncology Visit Oncology Yris Perez MD [address] [phone] (Wo rk) documented as of this encounter Visit Diagnoses Not on filedocumented in this encounter Care Teams Robotics Application Engineer Relationship Specialty Start Date End Date Simon Claros MD PCP - General Internal Medicine 09/22/12 08/20/21 documented as of this encounter
--- OUTSIDE RECORDS SUMMARY | 2022-08-20 14:30 | XMS_ITS | Encounter Summary ---
:1945 Author Organization [facility] Address [address] [place] [address] Care Team Providers Name Role Phone Simon Claros MD Primary Care Provider Reason for Visit Reason Comments Shortness of Breath wheezing and SOB Encounter Details Date Type Department Care Team Description 08/31/2015 [facility] Carlitos Ng [facility]asm [facility] [address] [place] [id number] [place] [address] (Wo rk) Social History Tobacco Use Types Packs/Day Years Used Date Passive Smoke Exposure - Never Smoker Alcohol Use Standard Drinks/Week Comments No 0 (1 standard drink = 0.6 oz pure alcoho l) Sex Assigned at Date Recorded Female 01/27/2022 12:36 PM CDT documented as of this encounter Last Filed Vital Signs Vital Sign Reading Time Taken Comments Blood Pressure 157/80 08/31/2015 3:25 PM CDT Pulse 85 08/31/2015 1:32 PM CDT Temperature 36.7 ??C (98.1 ??F) 08/31/2015 1:32 PM CDT Respiratory Rate 18 08/31/2015 3:25 PM CDT Oxygen Saturation 95% 08/31/2015 3:25 PM CDT Inhaled Oxygen Concentration - - Weight 65.8 kg (145 lb) 08/31/2015 1:32 PM CDT Height 167.6 cm (5' 6) 08/31/2015 1:32 PM CDT Body Mass Index 23.4 08/31/2015 1:32 PM CDT documented in this encounter Discharge Instructions Discharge InstructionsCarlitos Ng, DO - 08/31/2015 3:18 PM CDT Images from the original note were not included. Rest, fluids, albuterol every 4-6 hours for shortness of breath/cough/wheezing. Start Prednisone 40 mg daily tomorrow x 4 days (you received first dose in ED today). Follow up with your regular doctor in 2 days for recheck. Return to ED for worsening symptoms, chest pain, leg swelling, fevers, or any new concerns. Bronchospasm (Adult) Bronchospasm occurs when the airways (bronchial tubes) go into spasm and contract. This makes it hard to breathe and causes wheezing (a high-pitched whistling sound). Bronchospasm can also cause frequent coughing without the wheezing sound. Bronchospasm is due to irritation, inflammation or allergic reaction of the airways. People with asthma get bronchospasm. However, not everyone with bronchospasm has asthma. Being exposed to harmful fumes, a recent case of bronchitis, or a flare-up of chronic emphysema (COPD) may cause the airways to spasm. An episode of bronchospasm may last 7-14 days. Medicine may be prescribed to relax the airways and prevent wheezing. Antibiotics will be prescribed only if your doctorthinks there is a bacterial infection. Antibiotics do not help a viral infection. Home Care: 1. Drink lots of water or other fluids (at least 10 glasses a day) during an attack. This will loosen lung secretions and make it easier to breathe. If you have heart or kidney disease, check with yourdoctor before you drink extra amounts of fluids. 2. Take prescribed medicine exactly at the times advised. If you have a hand- held inhaler or aerosolbreathing medicine, do not use it more than once every four hours, unless told to do so. If prescribed an antibiotic or prednisone, take all of the medicine even if you are feeling better after a few days. 3. Do not smoke. Avoid being exposed to the smoke of others. 4. If you were given an inhaler, use it exactly as directed. If you need to use it more often than prescribed, your condition may be getting worse. Contact your doctor or this facility. Follow Up With Your Doctor, Or As Directed. [ NOTE: If you are age 65 or older, or if you have chronic asthma or COPD, we recommend a PNEUMOCOCCAL VACCINATION every five years and a yearly INFLUENZA VACCINATION (FLU-SHOT) every . Ask your doctor about this.] Get Prompt Medical Attention If Any Of The Following Occur: ?? Increased wheezing or shortness of breath ?? Need to use your inhalers more often than usual without relief ?? Fever of 100.4??F (38??C) or higher, or as directed by your healthcare provider ?? Coughing up lots of dark-colored or bloody sputum (mucus) ?? Chest pain with each breath ?? You do not start to improve within 24 hours ?? [id number] [employer]. [address] [place] [address], [place] [address]. All rights reserved. This information is not intended as a substitute for professional medical care. Always follow your healthcare professional's instructions. documented in this encounter Medications at Time of Discharge Medication Sig Dispensed Refills Start Date End Date XZL-Wmyx-QcEuez-MgHydr-S Take 10 mLs by mouth 0 0 07/17/2012 01/25/2017 imeth (FIRST-MOUTHWASH BLM) SUSP predniSONE (DELTASONE) Take two tablets (= 8 tablet 0 08/1502/24/2016 20 MG tablet 40mg) each day for 4 (four) days starting tomorrow. You received your first dose in ED 08/01. documented as of this encounter Progress Notes Ion Zuniga MD - 08/31/2015 2:31 PM CDT [employer] note A: Asthma, seasonal, likely with a viral URI on top of this. Significant dyspnea and wheezing today,better now Allergic rhinitis No history of coronary disease or COPD (non-smoker), asthma that is seasonal and allergies that are seasonal since childhood P: OK to take Prednisone 40mg qam and continue her albuterol MDI as needed. Call me if needed over the weekend. If all goes well, f/u with Dr. Claros on in his office S: Mrs. Brooks is a 70 yo woman who has a long history of environmental allergies that flare in the spring and fall. She uses Loratadine 10mg daily and has an albuterol MDI that she has had to use more frequently. A slight sore throat about a week ago. No fever, chills or sweats. Has been coughing and yesterday that started to be productive. No chest pain, orthopnea, pnd, edema or claudication. Sneezing a lot, some nasal congestion and running, ears ok. History of this flaring in the past and she has had to use Prednisone in the past. Does not have a controller medicine. Has had environmental triggers 3 years ago. She called me at 11:52AM today and she had audible wheezing on the phone. I asked her to come in andbe seen O: BP: 174/82 R= 16 P= 80s. SaO2 is 95% on ambient air. Lungs have just a faint expiratory wheezing,no rales or rhonchi. Nose has slight congestion, TMS and pharynx and cervical nodes are normal. The physician has seen and signed the order. CV: PMI 5th ICS, MCL, Normal S1 and S2 with an S2, no murmurs and no S3. No edema. JVD to 20 degrees. Pulses are 3 plus in the legs Abdomen: There are normal bowel sounds. There are no masses or HSM. No hernias. There is no rebound or guarding. documented in this encounter ED Notes Carlitos Ng DO - 08/31/2015 3:53 PM CDT Emergency Department Attending Supervision Note 08/31/2015 3:53 PM I evaluated this patient in conjunction with BAYLEE Rider Briefly, the patient presented with mild difficulty in breathing. Has asthma, worse with this time of the season. PE/DVT Risk Factors: The patient denies a personal or family history of PE, DVT, or other clotting disorders. The patientdenies any recent travel, surgery, or other prolonged immobilization. The patient denies tobacco useor hormone use. On my exam, mild expiratory wheezing, no crackles. My impression is bronchospasm, likely from seasonal allergies and component of underlying asthma. Brief MDM: Darshana Brooks is a very pleasant 70 year old year old female who presents to the emergency department with concern of wheezing. She had some mild wheezing. She was given a neb and felt much better. Given first dose of prednisone. Pt felt better. Other then pts age, she is PERC negative. Clinical picture is consistent with seasonal allergies/asthma exacerbation. Pt agrees to follow up. Return with fever, more difficulty in breathing etc. The treatment plan was discussed with the patient and they expressed understanding of this plan and consented to the plan. In addition, the patient will return to the emergency department if their symptoms persist, worsen, if new symptoms arise or if there is any concern as other pathology may be present that is not evident at this time. They also understand the importance of close follow up in the clinic and if unable to do so will return to the emergency department for a reevaluation. All questions were answered. Diagnosis ICD-10-CM 1. Acute bronchospasm J98.01 Carlitos Mas DO 08/31/15 1556 Altagracia Marie PA-C - 08/31/2015 1:59 PM CDT History Chief Complaint: Shortness of Breath HPI Darshana Brooks is a 70 year old female with history of seasonal allergies most prominent in the fall and without history of smoking who presents with shortness of breath and wheezing. The patient states that she has had a longstanding history of allergies for which she uses an Albuterol inhaler; although, over the last week she has had gradually worsening shortness of breath without relief using theinhaler. Last night, the patient noted wheezing upon exhalation and inhalation with an accompanying cough. This gradually worsened along with shortness of breath, and today, the patient noted her coughto become productive with a yellow, brown phlegm. Patient did call and see her PCP today - Dr. Marco A schmidt. Please see note. Here, she denies any fevers, chills, sinus pressure or pain, ear pain, sore throat, or difficulty swallowing. She denies any chest pain, palpitations, leg swelling or pain, and has no history of COPD. The patient also denies back pain, abdominal pain, nausea, or vomiting, but does state that she coughed so hard last night that she felt as though she may vomit. She denies any lightheadedness, dizziness, numbness, weakness or syncope. She has no other concerns or symptoms at this time. Cardiac Risk Factors: SEX: Female Tobacco: Negative Hypertension: Negative Diabetes: Negative Lipids: Negative Personal history: Negative Family History: Negative Exercise: Unknown PE and DVT Risk Factors: Personal hx of PE/DVT: Negative Family hx of PE/DVT: Negative Recent travel: Negative Recent surgery: Negative Other immobilizations: Negative Hx cancer: Negative Hormone use: Negative Allergies: Latex Medications: Albuterol inhaler Past Medical History: The patient does not have any pertinent past medical history. Past Surgical History: Hysterectomy Family History: No past pertinent family history. Marital Status: Social History: The patient is exposed to smoke at home and does not drink alcohol. The patient presents to the emergency department with her . Review of Systems Constitutional: Negative for fever and chills. HENT: Negative for congestion, ear pain, rhinorrhea, sinus pressure, sore throat and trouble swallowing. Respiratory: Positive for cough, shortness of breath and wheezing. Negative for chest tightness. Cardiovascular: Negative for chest pain, palpitations and leg swelling. Gastrointestinal: Negative for nausea, vomiting and abdominal pain. Musculoskeletal: Negative for back pain. Neurological: Negative for dizziness, syncope, weakness, light-headedness, numbness and headaches. All other systems reviewed and are negative. Physical Exam First Vitals: BP: 174/82 mmHg (Rechecked 155/81) Pulse: 85 Temp: 98.1 ??F (36.7 ??C) Resp: 18 Height: 167.6 cm (5' 6) Weight: 65.772 kg (145 lb) SpO2: 95 % Physical Exam Nursing note and vitals reviewed. GENERAL: Alert, mild distress HEENT: Normal conjunctiva. No scleral icterus. MMM. No oropharyngeal erythema, edema, or exudate. NECK: Supple. CARDIAC: Normal rate and regular rhythm. Normal heart sounds. No murmurs, rubs, or gallops appreciated. Intact distal pulses. PULMONARY: Normal breath sounds. Diffuse expiratory wheezing. No crackles or rhonchi appreciated. ABDOMEN: Soft, non-tender, non-distended. No rebound or guarding. Positive bowel sounds, all four quadrants. NEURO: Alert and oriented. Non-focal. MUSCULOSKELETAL: Normal range of motion. No peripheral edema. No calf tenderness. SKIN: Skin is warm and dry. No rashes. No pallor or jaundice. PSYCH: Normal affect and mood. Emergency Department Course EC Indication: SOB Findings: Normal sinus rhythm. Normal ECG. ECG read at [address] Ng. Ventricular rate: 77 bpm MD interval: 154 ms QRS duration: 86 ms QT/QTc: 392/443 ms R Whatley: 90 Imaging: Radiographic findings were communicated with the patient who voiced understanding of the findings. XR Chest, PA & LAT: IMPRESSION: Mild hyperexpansion of the lungs bilaterally consistent with obstructive airways disease. Otherwise no active cardiopulmonary disease. Reading per radiology. Interventions: Prednisone 40 mg tablet PO Duoneb 3 mL nebulizer solution Emergency Department Course: Nursing notes and vitals reviewed. I performed an exam of the patient as documented above. 1510 - XR Chest obtained. Results as above. 152 - I updated the patient of the XR findings and the plan for outpatient steroid treatment. The patient expressed understanding. Findings and plan explained to the Patient. Patient discharged home with instructions regarding supportive care, medications, and reasons to return. The importance of close follow-up was reviewed. Discharge medications: New Prescriptions PREDNISONE (DELTASONE) 20 MG TABLET Take two tablets (= 40mg) each day for 4 (four) days starting tomorrow. You received your first dose in ED 08/01. Impression & Plan Medical Decision Making: Darshana Brooks is a 70 year old female who presented to the ED with symptoms consistent with bronchospasm. The patient appears non-toxic without evidence of respiratory distress. The patient has normal oxygen saturations with normal work of breathing. There are no signs of serious systemic illness. CXR negative for pneumonia or any other acute abnormalities. No clinical evidence to suggest CHF. I have low suspicion for ACS with her wheezing on exam, no chest pain, no significant cardiac risk factors, and no acute ischemic changes on EKG. PE considered, but unlikely as patient is not hypoxic or tachycardic without any significant PE/DVT risk factors. At this time, given her well appearance and negative work up, I feel supportive outpatient management is appropriate with close follow up in 2 days with PCP. Reviewed with patient that cough and airway hyperreactivity may persist for several weeks. She will continue to use albuterol inhaler at home and prescription for Prednisone provided. Reviewed reasons to return to ED, including worsening symptoms, chest pain, fevers, leg swelling, or any other new concerns. She was in agreement with plan and discharged in satisfactory condition with all questions answered. Diagnosis: ICD-10-CM 1. Acute bronchospasm J98.01 I saw the above patient and shared service with Dr. Ng. Please see his brief note for additional details. I, Emi Mancia, am serving as a scribe at 2:04 PM on 08/31/2015 to document services personally performed by BAYLEE Gonzalez, based on my observations and the provider's statements to me. Altagracia Marie PA-Sherie 08/31/15 1851 Associated attestation - Carlitos Ng DO - 08/31/2015 6:52 PM CDT I saw and evaluated this patient with the APC. Please see my note as well. documented in this encounter Plan of Treatment Upcoming Encounters Date Type Specialty Care Team Description 10/26/2022 Lab Oncology Yris Perez MD [address] [place] [phone] (Wo rk) 11/03/2022 Oncology Visit Oncology Yris Perez MD [address] [place] [phone] (Wo rk) documented as of this encounter Procedures Procedure Name Priority Date/Time Associated Diagnosis Comme nts XR CHEST 2 VIEWS STAT 08/31/2015 2:54 PM Resul ts for this CDT procedure are i n the results section. EKG 12-LEAD, STAT 08/31/2015 2:22 PM Results f or this TRACING ONLY CDT procedure are i n the results section. documented in this encounter Results Chest XR, PA & LAT (08/31/2015 2:54 PM CDT) Anatomical Region Laterality Modality Chest Computed Radiography Specimen (Source) Anatomical Location Collection Method / Collectio n Time Received Time / Laterality Volume Impressions 08/31/2015 4:00 PM CDT IMPRESSION: Mild hyperexpansion of the lungs bilaterally consistent with obstructive airways disease. Otherw ise no active cardiopulmonary disease. ?? SHANKAR TOMLIN MD Narrative 08/31/2015 4:00 PM CDT CHEST TWO VIEWS ??08/31/2015 2:54 PM HISTORY: Shortness of breath, wheezing, rule out pneumonia. COMPARISON: None. Procedure Note Shankar Tomlin MD - 08/31/2015Fo rmatting of this note might be different from the original. CHEST TWO VIEWS 08/31/2015 2:54 PM HISTORY: Shortness of breath, wheezing, rule out pneumonia. COMPARISON: None. IMPRESSION IMPRESSION: Mild hyperexpansion of the l ungs bilaterally consistent with obstructive airways disease. Otherw ise no active cardiopulmonary disease. SHANKAR TOMLIN MD Altagracia Marie PA-C IMG DIAGNOSTIC IMAGING O RDERABLES EKG 12 lead (08/31/2015 2:22 PM CDT) [facility] gist Method Time Signature Interpretation ECG Click View RADIOLOGY Image link RESULTS to view waveform and result Specimen (Source) Anatomical Collection Method Collection Time Re ceived Time Location / / Volume Laterality 08/31/2015 2:22 PM CDT Altagracia Marie PA-C ECG ORDERABLES Performing Organization Address City/State/ZIP Code Phon e Number RADIOLOGY RESULTS documented in this encounter Visit Diagnoses Diagnosis Acute bronchospasm documented in this encounter Administered Medications Inactive Administered Medications - up to 3 most recent administrations Medication Order MAR Action Action Date Dose Rate Site ipratropium - albuterol 0.5 mg/2.5 Given 08/31/2015 2:30 PM CDT 3 mLs mg/3 mL (DUONEB) nebulizer solution 3 mL 3 mL, Nebulization, ONCE, On 08/31/15 at 1412, For 1 dose predniSONE (DELTASONE) tablet 40 mg Given 08/31/2015 2:17 PM CDT 40 mg 40 mg, Oral, ONCE, On 08/31/15 at 1412, For 1 dose documented in this encounter Active and Recently Administered Medications Times are shown in CDT. Scheduled Medication Order 08/29/2015 08/30/2015 08/31/2015 ipratropium - albuterol 0.5 mg/2.5 mg/3 mL (DUONEB) nebulizer solution 3 mL (COMPLETED) 1430 (Given - Provid er: Rola Ye RN) 3 mL, Nebulization, ONCE, 08/31/15 at 1412, For 1 dose predniSONE (DELTASONE) tablet 40 mg (COMPLETED) 1417 (Given - Provider: Rola Ye RN) 40 mg, Oral, ONCE, 08/31/15 at 1412, For 1 dose documented in this encounter Care Teams Manufacturer Representative Relationship Specialty Start Date End Date Simon Claros MD PCP - General Internal Medicine 09/22/12 08/20/21 documented as of this encounter
[2022-08-20 16:19] LABS: Albumin* 4.3 g/dL (3.3-5.0); Chloride* 97 mmol/L (96-114)
[2022-08-20 16:20] LABS: Sodium* 137 mmol/L (135-149)
[2022-08-20 16:22] LABS: Aspartate Amino Transferase* 28 U/L (12-35); Bilirubin Total* 0.6 mg/dL (0.1-1.5); Carbon Dioxide* 31 mmol/L (20-32); Cholesterol* 189 mg/dL (90-199); Creatinine* 1.1 mg/dL (0.5-1.5); Estimated Glomerular Filt Rate 53 ml/min
[2022-08-20 16:23] LABS: Alanine Aminotransferase* 27 U/L (4-35); Alkaline Phosphatase* 105 U/L (40-150); Blood Urea Nitrogen* 18 mg/dL (7-30); Calcium* 9.6 mg/dL (8.4-10.6); Glucose* 88 mg/dL (60-115); HDL Cholesterol* 43 mg/dL (>=50); LDL Cholesterol Calculated 107 mg/dL (<100); Triglycerides* 193 mg/dL (40-149)
== END 2022-08-20 14:13 | disposition home or self-care (01) ==
PROVIDERS: PCP Internal Medicine; Visit Provider Internal Medicine
DX: Z00.00 Encounter for general adult medical examination without abnormal findings (principal); R30.0 Dysuria; M10.9 Gout, unspecified; Z13.6 Encounter for screening for cardiovascular disorders
CPT/HCPCS: 80053; 80061; 87086

== ENCOUNTER 2023-02-23 21:00 | Outpatient (CLI) | payer MEDICARE, SELFPAY ==
--- NOTE | 2023-03-02 13:03 | W.PM.SLEEP ---
Sleep Study Details Details Interpreting Provider: Shell Date of Sleep Study: 02/23/23 Sleep Study Details: STUDY TYPE:? Hospital BMI:? 24 ORDERING PROVIDER:Jacquelin Alvarez INDICATION:? Concerns about sleep apnea ? SLEEP SUMMARY:? Sleep time 320 minutes, arousal index 6.2, REM latency 62.5 RESPIRATORY SUMMARY:? Mean oxygen awake 92 asleep 91 minimum 82. 38.9 minutes oxygen between 80 and 88% AHI 3.8, RDI 6.2, REM AHI 10.1 Supine AHI 2.2, nonsupine AHI 4.3 PERIODIC LIMB MOVEMENTS OF SLEEP:? Index 51.4, index with arousal 0.8 CARDIAC:? Awake 78 asleep 72 no arrhythmias noted IMPRESSION:? The overall AHI is within normal limits however the RDI is 6.2 which qualifies as mild obstructive sleep apnea. There is REM dependency in the nonsupine position. The oxygenation was lower than would be expected for this level of apnea with 38.9 minutes oxygen below 88% RECOMMENDATION: If patient is symptomatic treatment could consist of AutoSet CPAP dental appliance and/or airway expansion surgery Would repeat overnight oximetry and if still low would consider further cardiopulmonary evaluation.
== END 2023-02-23 21:01 | disposition home or self-care (01) ==
LOC: SLEEP 21:01
PROVIDERS: PCP Internal Medicine; Visit Provider Internal Medicine
DX: R06.83 Snoring (principal)
CPT/HCPCS: 95810

== ENCOUNTER 2023-04-15 11:05 | Outpatient (RCR) | payer MEDICARE, SELFPAY | END 2023-10-12 23:59 | disposition home or self-care (01) | LOC: CCIC 11:05 | PROVIDERS: PCP Internal Medicine; Visit Provider Physician Assistant | DX: C50.911 Malignant neoplasm of unspecified site of right female breast (principal); Z17.0 Estrogen receptor positive status [ER+]; N63.0 Unspecified lump in unspecified breast; M85.80 Other specified disorders of bone density and structure, unspecified site | CPT/HCPCS: 99205; 99212; 99214 ==

== ENCOUNTER 2023-06-07 12:32 | Outpatient (CLI) | payer MEDICARE, SELFPAY | END 2023-06-07 12:33 | disposition home or self-care (01) | LOC: NFLDREF 06-08 08:57 | PROVIDERS: PCP Internal Medicine; Referring Provider Internal Medicine; Visit Provider Internal Medicine | DX: R35.0 Frequency of micturition (principal) | CPT/HCPCS: 87086; 87186 ==

== ENCOUNTER 2023-11-16 09:41 | Outpatient (CLI) | payer MEDICARE, SELFPAY | END 2023-11-16 09:42 | disposition home or self-care (01) | PROVIDERS: PCP Internal Medicine; Visit Provider Internal Medicine | DX: Z00.00 Encounter for general adult medical examination without abnormal findings (principal); N63.0 Unspecified lump in unspecified breast; M10.9 Gout, unspecified; Z13.6 Encounter for screening for cardiovascular disorders | CPT/HCPCS: 80053; 80061 ==

== ENCOUNTER 2023-11-23 08:25 | Outpatient (CLI) | payer MEDICARE, SELFPAY ==
--- OUTSIDE RECORDS SUMMARY | 2023-11-23 08:27 | XMS_ITS | Clinical Summary ---
Author Name Unknown Organization [place] Address [facility] [place] [address] Care Team Providers Care Telescope Maintenance Name Role Phone Chalino Jordin Fitzpatrick DPM Unavailable [phone] Chan Olivarez MD Unavailable [phone] Allergies Active Allergy Reactions Criticality Noted Date Comments Birch Trees Unknown Medium 01/29/2022 Chlorhexidine Rash Low 03/10/2016 Latex Rash Low 05/27/2012 Other reaction(s): Other, see comments PN: sneezing, runny nose, [place] Trees Unknown Medium 01/29/2022 No Clinical Screening - See Comments 02/11/2009 PN: LW Other1: -latex:nasal congestion, eyes watering. LW Other2: -canteloupe, horses, cats, dust, molds, trees Sulfamethoxazole 06/10/2016 Heartburn Medications Medication Sig Dispensed Refills Start Date End Date Status loratadine (CLARITIN) 10 MG tablet Take 10 mg by mouth 0 Active Cholecalciferol (VITAMIN D3 PO) Take 2,000 Units by mouth daily 0 Active albuterol (PROAIR HFA) 108 (90 Base) MCG/ACT inhalerIndications:Ch ronic obstructive pulmonary disease, unspecified COPD type (H) INHALE 2 PUFFS 4 TIMES A DAY NEEDED 8.5 Inhaler 11 02/05/2020 Active calcium carbonate (OS-ROSALINO) 500 MG tablet Take 1 tablet by mouth daily 0 Active CRANBERRY PO Take by mouth daily 0 Active Ascorbic Acid (VITAMIN C PO) 0 Active allopurinol (ZYLOPRIM) 300 MG tabletIndications: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 TAKE 1 TABLET BY MOUTH EVERY DAY 90 tablet 2 09/02/2021 Active vitamin B complex with vitamin C (VITAMIN B COMPLEX) tablet Take 1 tablet by mouth daily 0 Active Active Problems Problem Noted Date Diagnosed Date ERRONEOUS ENCOUNTER--DISREGARD 03/31/2019 Hyperlipidemia LDL goal <130 01/29/2019 Fatigue, unspecified type 01/29/2019 Acute idiopathic gout of left foot 01/29/2019 Vitamin D deficiency 01/29/2019 Trigger finger, acquired 01/29/2019 Atrophic vaginitis 01/27/2018 Malignant neoplasm of female breast, unspecified estrogen receptor status, unspecified laterality, unspecified site of breast 12/06/2017 Overview: SCP complete History of frequent urinary tract infections Strain of neck muscle, initial encounter 017 Benign essential hypertension 01/05/2017 Chronic obstructive pulmonar y disease, unspecified COPD type 01/05/2017 ACP (advance care planning) 06/02/2016 Overview: Advance Care Planning 06/02/2016: Receipt of ACP document: Received: Health Care Directive which was witnessed or notarized on 02/26/16. Document previously scanned on 03/10/16. Validation form previously completed and sent to be scanned. Code Status reflects choices in most recent ACP document. Confirmed/documented designated decision maker(s). Added by Sruthi Andersen RN, Advance Care Planning Liaison. Right hip pain 03/10/2016 Immunizations Name Administration Dates Next Due Flu, Unspecified 11/23/2002 [id number] Novel Flu 11/19/2009 HepA-Peds, Unspecified 07/14/2000 HepB, Unspecified 05/30/2001 Hepatitis A (ADULT 19+) 07/14/2000,11/15/1999 Hepatitis B, Adult 05/30/2001,08/16/2000, 000 Hepatitis B, Peds 08/16/2000,07/14/2000 Influenza (High Dose) 3 valent vaccine 7 Influenza (IIV3) PF 11/02/2006, 5,11/13/2004,11/23 Meningococcal (Menomune??) 02/11/2009,08/16/2000 Pneumo Conj 13-V (2010&after) 12/16/2015 Pneumococcal 23 valent 09/22/2012,11/15/2011 Poliovirus, inactivated (IPV) 07/14/2000 TD,PF 7+ (Tenivac) 01/30/2019,07/14/2000 TDAP Vaccine (Adacel) 02/11/2009 Td (Adult), Adsorbed 07/14/2000 Typhoid IM 04/15/2015 Typhoid Oral 02/11/2009 Typhoid, Unspecified Formulation 02/11/2009 Yellow Fever 05/27/2012,08/16/2000 Family History Medical History Relation Comments Other Cancer Brother 3 leukemia Other Cancer Brother 4 mesothelioma Asthma Father Asthma, Emphazem a, Heart Failure Diabetes Father border line diab etes Diabetes Mother type? unknown Hypertension Mother Breast Cancer Niece Double mastectom y, reconstruction Breast Cancer Other 1 Aunt Osteoporosis Other 2 paternal aunt Breast Cancer Sister 1 Anesthesia Reaction Sister 4 Problems com ing out from anesthersia Breast Cancer Sister 4 twice Relation Status Comments Brother 1 Alive Brother 2 Alive Brother 3 Brother 4 Father Maternal Grandfather Maternal Grandmother Mother Niece Other 1 Other 2 Paternal Grandfather Paternal Grandmother Sister 1 Alive Sister 2 Alive Sister 3 Alive Sister 4 Social History Tobacco Use Types Packs/Day Years Used Date Smoking Tobacco: Passive Smo ke Exposure - Never Smoker Smokeless Tobacco: Never Tobacco Cessation:Counseling Given: Yes Alcohol Use Standard Drinks/Week Comments No 0 (1 standard drink = 0.6 oz pur e alcohol) PHQ-2 Answer Date Recorded PHQ-2 Score 0 08/14/2022 Adolescent Education Answer Date Record ed Getting School Help Needed Not on file 08/06 Sex and Gender Information Value Date Recorded Sex Assigned at Female 01/27/2022 12:36 PM CDT Gender Identity Female 01/27/2022 12:36 PM CDT Sexual Orientation Straight 09/29/2021 10 :51 AM 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 [employer] [place] [place] Last Filed Vital Signs Vital Sign Reading Time Taken Comments Blood Pressure 177/85 10/11/2022 11:00 AM 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 [employer] [place] [place] Pulse 80 10/11/2022 11:00 AM 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 [employer] [place] Temperature 36.8 ??C (98.3 ??F) 10/11/2022 5:28 AM CS T Respiratory Rate 16 10/11/2022 5:28 AM 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 [employer] [place] [place] Oxygen Saturation 96% 10/11/2022 11:00 AM 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 [employer] [place] [place] Inhaled Oxygen Concentration - - Weight 66.2 kg (146 lb) 08/14/2022 2:02 PM CDT Height 167.6 cm (5' 6) 08/14/2022 2:02 PM CDT Body Mass Index 23.57 08/14/2022 2:02 PM CDT Plan of Treatment Health Maintenance Due Date Last Done Comments ANNUAL REVIEW OF HM ORDERS 1945 COPD ACTION PLAN 1945 HEPATITIS C SCREENING 1965 IPV IMMUNIZATION (2 of 3 - Adult catch-up series) 08/11/2000 07/14/2000 RSV VACCINE ( & 60+) (1 - 1-dose 60+ series) 2007 PHQ-2 (once per calendar year) 2022 08/14/2022, 01/29/2022, 08/05/2021, Additional history exists FALL RISK ASSESSMENT 01/29/2023 01/29/2022, 08/05/2021, 01/13/2021, Additional history exists MEDICARE ANNUAL WELLNESS VISIT 01/29/2023 01/29/2022, 05/29/2020, 01/30/2019, Additional history exists COVID-19 Vaccine ( season) 2023 01/24/2021 INFLUENZA VACCINE (#1) 2023 (Declined), 12/01/2016, 11/19/2009, Additional history exists LIPID 08/05/2026 08/05/2021, 05/15, 01/30/2019, Additional history exists ADVANCE CARE PLANNING 01/30/2027 01/30/2022 , 06/22/2020, 06/02/2016, Additional history exists DTAP/TDAP/TD IMMUNIZATION (3 - Td or Tdap) 01/30/2029 01/30/2019, 02/11/2009, 07/14/2000, Additional history exists DEXA 12/22/2036 12/22/2021, 05/2022, 04/19/2020, Additional history exists MENINGITIS IMMUNIZATION Aged Out 02/11/2009, 08/16 No longer eligible based on patient's age to complete this topic Pneumococcal Vaccine: 65+ Years Completed 12/16/2015, 09/22/2012, 11/15/2011 SPIROMETRY Completed 01/30/2019, 01/13, 01/05/2017, Additional history exists COLONOSCOPY Discontinued 08/15/2021, 11/2020, 06/03/2017, Additional history exists COLORECTAL CANCER SCREENING Discontinued MAMMO SCREENING Discontinued 04/17/2022, 03/15, 03/22/2020, Additional history exists ZOSTER IMMUNIZATION Completed 05/23/2022, 2 CT COLONOGRAPHY Discontinued FIT Discontinued FLEX SIG Discontinued HPV IMMUNIZATION Aged Out No longer e ligible based on patient's age to complete this topic RSV MONOCLONAL ANTIBODY Aged Out No l onger eligible based on patient's age to complete this topic sDNA (Cologuard) Discontinued Medical Devices Implanted Type Area Minister Helper Device Identifier Shelf Expiration Date Model / Serial / Lot Biolox Delta Ceramic Femoral Head +5.0 36mm Cristina 10/28 Taper Implanted:Qty: 1 on 03/10/2016 by Wayne Estevez MD at [facility] Right: Hip Depuy 09/14/2020 [id number] / / [id number] Additional Health Concerns Infection Onset Date Last Indicated ESBL Comment: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/05/17, 06/08/17, 08/26/17 01/08/2017 Advance Directives For more information, please contact: [phone] Documents on File Type Date Recorded Patient Customs Verifier Expl anation Advance Directives and Living Will 03/10/2016 7:35 PM Health Care Directiv e 02/26/16 Latest Code Status on File Code Status Date Activated Date Inactivated Comments Full Code 03/11/2016 1:43 PM 08/22/2020 3:28 PM Code Status History Code Status Date Activated Date Inactivated Comments Full Code 03/10/2016 3:43 PM 03/11/2016 1:43 PM Care Teams Telescope Maintenance Relationship Specialty Start Date End Date Jordin Allred DPM [address] [facility] [address] [place] [address] Assigned Surgical Provider 12/19/22 Chan Olivarez MD [address] [phone] Assigned PCP 02/20/23
--- OUTSIDE RECORDS SUMMARY | 2023-11-23 08:27 | XMS_ITS | Clinical Summary ---
Author Name Unknown Organization [facility] Address [address] [place] [address] Care Team Providers Care Quality Control Projectionist Name Role Phone Unassigned, Provider Primary Care Provider Unava ilable Source Comments You are receiving this document as you are listed as the primary care provider,follow-up provider, or the patient has been referred to you for consultation.This is in compliance with the Medicare and[employer] EHR Incentive Program,which states Providers who transition their patient to another setting of careor provider of care or refers their patient to another provider of care shouldprovide summary care record for each transition of care or referral. NextFit Allergies Active Allergy Reactions Criticality Noted Date Comments Latex Other, see comments 05/27/2012 PN: sneezing, runny nose, Other 02/11/2009 PN: LW Other1: -latex:nasal congestion, eyes watering. LW Other2: -canteloupe, horses, cats, dust, molds, trees Medications Medication Sig Dispensed Refills Start Date End Date Status ALBUterol sulfate hfa (ALBUTEROL) 108 (90 BASE) MCG/ACT inhaler Inhale 2-4 Puffs by mouth every 4 hours as needed. 0 Active compounded MAGIC MOUTH WASH (AKA MAGIC MOUTH WASH) suspensionIndications :Tonsillitis Take 10 mL by mouth 4 times a day. Compd : Visc Lidocaine 30 ml,Mintox 30ml,Benadryl Elixir 30ml. 240 mL 0 07/17/2012 Active atovaquone-proguanil (MALARONE) 250-100 MG tabletIndications:Cou nseling for travel Take 1 tab 2 days before malarial mosquito exposure, daily while there, and 7 days after. 18 Tab 0 12/04/2016 Active azithromycin (ZITHROMAX) 500 MG tabletIndications:Cou nseling for travel Take 1 tab daily as needed for severe traveler's diarrhea 3 Tab 0 12/01/2016 Active Active Problems No known active problems Immunizations Name Administration Dates Next Due Flu Vac (3+ yrs) 11/02/2006,10/28/2005, 4 HepA Adult (19+ yrs) 07/14/2000,11/15/1999 HepB Adult (Engerix-B, 20+ y rs, 3 dose series) 08/16/2000,07/14/2000 HepB, Unspecified Formulation 05/30/2001 IPV (Polio) 07/14/2000 Influenza IIV3 (Trivalent) F feliciano Highdose, 65+ Yrs (62452) 12/01/2016 Influenza, Unspecified Formulation 11/23/2002 MPSV4 (Menomune) 02/11/2009,08/16/2000 PCV13 (Prevnar) 12/16/2015 TDAP (ADACEL) 02/11/2009 Td 07/14/2000 Typhoid (Typhim Vi, IM) 04/15/2015 Typhoid (Vivotif, Oral) 02/11/2009 YF (Yellow Fever) 05/27/2012,08/16/2000 Family History Medical History Relation Name Comments Cataract Father Cataract Sister Relation Name Status Comments Father Sister Social History Tobacco Use Types Packs/Day Years Used Date Smoking Tobacco: Never Sex and Gender Information Value Date Recorded Sex Assigned at Not on file Gender Identity Not on file Sexual Orientation Not on file Last Filed Vital Signs Vital Sign Reading Time Taken Comments Blood Pressure 132/68 07/17/2012 4:48 PM CDT Pulse 88 07/17/2012 4:48 PM CDT Temperature 37 ??C (98.6 ??F) 07/17/2012 4:48 PM CDT Respiratory Rate 20 03/07/2007 8:00 PM CDT Oxygen Saturation 97% 07/17/2012 4:48 PM CDT Inhaled Oxygen Concentration - - Weight 68 kg (150 lb) 07/17/2012 4:48 PM CDT Height - - Body Mass Index - - Plan of Treatment Health Maintenance Due Date Last Done Comments Hep C Screening (Preventive Services) 1945 Medicare Annual Wellness Visit 1945 COVID-19 Vaccine (#1) 02/22/1946 Zoster/Shingles (1 of 2) 1997 Dexa 2012 Pneumococcal 65+ Yrs (2 - PPSV23 or PCV20) 12/16/2016 12/16/2015 DTaP/Tdap/Td (2 - Tdap) 02/11/2019 02/11/2009, 07/14 Influenza (#1) 2023 12/01/2016, 10/15, 10/28/2005, Additional history exists HepA Aged Out 07/14/2000, 11/15/1999 No lo nger eligible based on patient's age to complete this topic IPV (Polio) Aged Out 07/14/2000 No longer eligi ble based on patient's age to complete this topic HepB Completed 05/30/2001, 12/1999, 07/14/2000 MCV4 Aged Out 02/11/2009, 08/16/2000 No lo nger eligible based on patient's age to complete this topic Hib Aged Out No longer eligi ble based on patient's age to complete this topic Care Teams Quality Control Projectionist Relationship Specialty Start Date End Date Unassigned, Provider [address] [place] [address] PCP - General 05/23/01
--- OUTSIDE RECORDS SUMMARY | 2023-11-23 08:27 | XMS_ITS | Encounter Summary ---
Author Name Unknown Organization [place] Address [facility] [place] [address] Care Team Providers Care Chief Knowledge Officer Name Role Phone Yris Perez MD Unavailable Jordin Allred DPM Unavailable Chan Olivarez MD Unavailable [phone] Encounter Details Date Type Department Care Team (Late st Contact Info) Description 04/19/[address] [id number] Clinic - [facility] [id number] [place] [id number] Social History Tobacco Use Types Packs/Day Years Used Date Smoking Tobacco: Passive Smo ke Exposure - Never Smoker Smokeless Tobacco: Never Alcohol Use Standard Drinks/Week Comments No 0 (1 standard drink = 0.6 oz pur e alcohol) PHQ-2 Answer Date Recorded PHQ-2 Score 0 08/14/2022 Sex and Gender Information Value Date Recorded Sex Assigned at Female 01/27/2022 12:36 PM CDT Gender Identity Female 01/27/2022 12:36 PM CDT Sexual Orientation Straight 09/29/2021 10 :51 AM NODULIZER documented as of this encounter Miscellaneous Notes * Telephone Encounter - Shelia Bryant CMA - 04/19/2023 11:40 AM CDT Pt calling to request copies of her mammograms be faxed to [facility]. Pt did sign a LIOR so mammograms have been faxed. Shelia Bryant CMA documented in this encounter Plan of Treatment Not on file documented as of this encounter Visit Diagnoses Not on filedocumented in this encounter Additional Health Concerns Infection Onset Date Last Indicated Resolved Time ESBL Comment: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/05/17, 06/08/17, 08/26/17 01/08/2017 08/29/2019 documented as of this encounter Care Teams Chief Knowledge Officer Relationship Specialty Start Date End Date Yris Perez MD [address] [facility] [address] [place], [place] [id number] Assigned Cancer Care Provider 05/16/22 11/05/23 Jordin Allred DPM [address] [facility] [address] [place], [place] [address] Assigned Surgical Provider 12/19/22 Chan Olivarez MD [address] [place] [phone] Assigned PCP 02/20/23 documented as of this encounter
--- OUTSIDE RECORDS SUMMARY | 2023-11-23 08:27 | XMS_ITS ---
Author Name Unknown Organization [place] Address [facility]0 [place] [address] Care Team Providers Care Continuous Crusher Operator Name Role Phone Chalino, Jordin Fitzpatrick DPM Unavailable [phone] Chan Olivarez MD Unavailable [phone] Active Problems Problem Noted Date Diagnosed Date [...] Care Planning Liaison. Right hip pain 03/10/2016 Current Oncology Plans No current plan information found. Past Plans No past plan information found. Radiation Treatments * No radiation treatments are documented for this patient in [facility]. Treatments may have been administered in another system. Treatment Summaries Malignant neoplasm of female breast, unspecified estrogen receptor status, unspecified laterality, unspecified site of breast (H)* Cancer Treatment Plan and Summary - Breast Provided by [facility] [place] General Information Patient Name Darshana Brooks Patient 1945 Patient phone [phone] (home) NONE (work) Email [email or web address] Care Team Primary Care Provider Simon Claros Michael Robert, MD Radiation Oncologist Medical Oncologist Following with [facility] Other Providers Cancer Diagnosis Information Diagnosis Malignant neoplasm of female breast, unspecified estrogen receptor status, unspecified laterality, unspecified site of breast (H) Diagnosis Date 02/09/2017 Staging Information Stage IA ([id number]) Estrogen Positive Progesterone Positive HER2 Negative Familial Cancer Risk Assessment Genetic Counseling No Treatment Summary Surgery Lumpectomy Right and [place] lymph node biopsy Right Surgery Date: 02/08/2017 Pathology Invasive ductal carcinoma Radiation No Radiation Treatment at [facility] No Chemotherapy prescribed at [facility] Treatment Ongoing No Ongoing Treatment prescribed by [facility] Follow-up Care Plan Persistent symptoms or side effects at completion of treatment These symptoms may include, but not limited to: fatigue, numbness/tingling, psychosocial, menopause symptoms, pain, memory/concentrationissues. Additional provider notes, if applicable Your follow up care plan is designed to inform you and your primary care provider the recommended and suggested follow up, cancer screening and routine health maintenance that is needed to maintain optimal health. Possible late and/or rodent exterminator effects that someone with this type of cancer and treatment may experience: bone effects heart effects fertility effects memory and concentration pain lymphedema nervous system changes If you would like to discuss specific late and/or rodent exterminator effects related to your treatment, please use the following website to make an appointment in the Cancer Survivor Program: [email or web address] OR call These symptoms should be brought to the attention of your provider: 1. Anything that represents a brand new symptom; 2. Anything that represents a persistent symptom; 3. Anything that you are worried about that might be related to your cancer coming back. Coordinating Provider When/How Often Primary Care Provider Please continue to see your primary care provider for all general health carerecommended for a patient your age, including cancer screening tests. Any symptoms should be brought to the attention of your provider. Medical Oncologist Every 3 to 6 months for the first 3 years, every 6 months for years 4 and 5, andannually thereafter Radiation Oncologist As directed Surgeon As directed Other See eye doctor and dentist routinely Cancer Surveillance or Other Recommended Related Tests Test What/When/How Often Mammogram Once a year; not indicated routinely for patients with bilateral mastectomies Bone Density Every 2 years if on an aromatase inhibitor or as indicated by your provider Breast MRI As indicated by provider Pelvic exam Yearly for Tamoxifen use only Cancer survivors may experience issues with the areas listed below. If you have any concerns in these or other areas, please speak with your providers or nurses to find out how you can get help with them. Anxiety or depression Emotional and mental health Fatigue Fertility Financial advice or assistance Insurance Lymphedema Memory or concentration loss Parenting Physical functioning School or work Sexual functioning Stopping smoking Weight changes Other A number of lifestyle/behaviors can affect your ongoing health, including the risk for the cancer coming back or developing another cancer. Discuss these recommendations with your provider or nurse: Alcohol use Diet Physical activity Sun screen use Tobacco use/cessation Weight management (loss/gain) Resources you may be interested in: [place] [employer] Society www.cancer.org [place] Society of Clinical Oncology www.asco.org/practice-guidelines/resources-patients National Cancer [place] www.cancer.gov [employer] www.livestrong.org [facility] www.mhealth.org/care/overarching-care/adesfl-dfvi-zllkm/support-services www.cancer.net [place] for Cancer Research www.aicr.org This Survivorship Care Plan is a cancer treatment summary and follow up plan and is provided to youto keep with your health care records and to share with your primary care provider or any of your other providers.
--- OUTSIDE RECORDS SUMMARY | 2023-11-23 08:27 | XMS_ITS | Referral Summary ---
Author Name Unknown Organization [place] Address [facility] [place] [address] Care Team Providers Care Reordering Clerk Name Role Phone Chalino Jordin Fitzpatrick DPM Unavailable [phone] Chan Olivarez MD Unavailable [phone] Allergies Active Allergy Reactions Criticality Noted Date Comments Birch Trees Unknown Medium 01/29/2022 Chlorhexidine Rash Low 03/10/2016 Latex Rash Low 05/27/2012 Other reaction(s): Other, see comments PN: sneezing, runny nose, [place] Trees Unknown Medium 01/29/2022 No Clinical Screening [...] Administration Dates Next Due Flu, Unspecified 11/23/2002 [id number] Novel Flu 11/19/2009 HepA-Peds, Unspecified 07/14/2000 HepB, [...] Typhoid, Unspecified Formulation 02/11/2009 Yellow Fever 05/27/2012,08/16/2000 Social History Tobacco Use Types Packs/Day Years [...] Sexual Orientation Straight 09/29/2021 10 :51 AM 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 Last Filed Vital Signs Vital Sign Reading Time Taken Comments Blood Pressure 177/85 10/11/2022 11:00 AM 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 Pulse 80 10/11/2022 11:00 AM 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 Temperature 36.8 ??C (98.3 ??F) 10/11/2022 5:28 AM CS T Respiratory Rate 16 10/11/2022 5:28 AM 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 Oxygen Saturation 96% 10/11/2022 11:00 AM 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 Inhaled Oxygen Concentration - - Weight 66.2 kg (146 lb) 08/14/2022 2:02 PM CDT Height 167.6 cm (5' 6) 08/14/2022 2:02 PM CDT Body Mass Index 23.57 08/14/2022 2:02 PM CDT Plan of Treatment Not on file Medical Devices Implanted Type Area Mix House Tender Device Identifier Shelf Expiration Date Model / Serial / Lot Biolox Delta Ceramic Femoral Head +5.0 36mm Cristina 10/28 Taper Implanted:Qty: 1 on 03/10/2016 by Wayne Estevez MD at [facility] Right: Hip Depuy 09/14/2020 [id number] / / [id number] Additional Health Concerns Infection Onset Date Last Indicated ESBL Comment: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/05/17, 06/08/17, 08/26/17 01/08/2017 Advance Directives For more information, please contact: [phone] Documents on File Type Date Recorded Patient Lens Edge Grinder Machine Expl anation Advance Directives and Living Will 03/10/2016 7:35 PM Health Care Directiv e 02/26/16 Latest Code Status on File Code Status Date Activated Date Inactivated Comments Full Code 03/11/2016 1:43 PM 08/22/2020 3:28 PM Code Status History Code Status Date Activated Date Inactivated Comments Full Code 03/10/2016 3:43 PM 03/11/2016 1:43 PM Care Teams Reordering Clerk Relationship Specialty Start Date End Date Jordin Allred DPM [address] [facility] [address] [place] [address] Assigned Surgical Provider 12/19/22 Chan Olivarez MD [address] [place] [phone] Assigned PCP 02/20/23
--- OUTSIDE RECORDS SUMMARY | 2023-11-23 08:28 | XMS_ITS | Encounter Summary ---
Author Name Unknown Organization [place] Address [facility] [address] Care Team Providers Care Ham Sawyer Name Role Phone Jordin Allred DPM Unavailable [phone] Chan Duke MD Primary Care Provider [phone] Chan Duke MD Unavailable [phone] Yris Perez MD Unavailable Jordin Allred DPM Unavailable [phone] Guillermo Rojas APRN DEMURRAGE CLERK Unavailable Chan Olivarez MD Unavailable [phone] Encounter Details Date Type Department Care Team (Late st Contact Info) Description 08/17/2022 [facility] [address] [place] [phone] Guillermo Rojas APRN DEMURRAGE CLERK [address] [place] [address] Social History Tobacco Use Types Packs/Day Years [...] Sexual Orientation Straight 09/29/2021 10 :51 AM LICENSE EXAMINER COVID-19 Exposure Response Date Recorded In the last 10 days, have yo u been in contact with someone who was confirmed or suspected to have Coronavirus/COVID-19? No / Unsure 08/14/2022 1:36 PM CDT documented as of this encounter Plan of Treatment Not on file documented as of this encounter Visit Diagnoses Not on filedocumented in this encounter Additional Health Concerns Infection Onset Date Last Indicated Resolved Time ESBL Comment: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/05/17, 06/08/17, 08/26/17 01/08/2017 08/29/2019 documented as of this encounter Care Teams Ham Sawyer Relationship Specialty Start Date End Date Chan Duke MD [address] [facility] [address] [address] PCP - General Internal Medicine 08/21/21 12/15/22 Jordin Allred DPM [address] [employer] [facility] [address] [place] [address] Assigned Musculoskeletal Provider 03/02/21 12/18/22 [place] [address] [place] [address] Assigned PCP 08/24/21 12/18/22 Yris Perez MD [address] [place] [address] Assigned Cancer Care Provider 05/16/22 11/05/23 J[place]PM [address] [employer] [facility] [address] [place] [address] Assigned Surgical Provider 12/19/22 Guillermo Rojas APRN [facility] [address] [place] [address] Assigned PCP 12/19/22 02/19/23 Chan Olivarez MD [address] [place], [place] [address] [phone] Assigned PCP 02/20/23 documented as of this encounter
--- OUTSIDE RECORDS SUMMARY | 2023-11-23 08:28 | XMS_ITS | Encounter Summary ---
Author Name Unknown Organization [place] Address [address] [place] [address]. [place] [address] Care Team Providers Care Central Service Supply Distributor Name Role Phone Simon Claros MD Primary Care Provider Unavail able Simon Claros MD Unavailable Unavailable Deidra Whitehead DPM, Podiatry /Foot and Ankle Surgery Unavailable Jordin AllredM Unavailable [phone] Chan Olivarez MD Unavailable [phone] Simon Claros MD Unavailable Unavailable Chan Olivarez MD Unavailable [phone] Chan Duke MD Primary Care Provider Chan Duke MD Unavailable [phone] Aaron Garcia MD Unavailable [phone] Yris Perez MD Unavailable Jordin AllredM Unavailable [phone] Guillermo Rojas APRN MAINTENANCE MECHANIC Unavailable [phone] Chan Olivarez MD Unavailable [phone] Reason for Visit * Reason Comments Medication Refill Encounter Details Date Type Department Care Team (Late st Contact Info) Description 05/08/[address], [address] [place] [address] Simon Claros MD Medication Refill Social History Tobacco Use Types Packs/Day Years Used Date Smoking Tobacco: Passive Smo ke Exposure - Never Smoker Smokeless Tobacco: Never Alcohol Use Standard Drinks/Week Comments No 0 (1 standard drink = 0.6 oz pur e alcohol) PHQ-2 Answer Date Recorded PHQ-2 Score 0 11/23/2018 Sex and Gender Information Value Date Recorded Sex Assigned at Female 01/27/2022 12:36 PM CDT Gender Identity Female 01/27/2022 12:36 PM CDT Sexual Orientation Straight 09/29/2021 10 :51 AM INSULATION MANAGER documented as of this encounter Plan of Treatment Not on file documented as of this encounter Visit Diagnoses Diagnosis Acute idiopathic gout of left foot documented in this encounter Additional Health Concerns Infection Onset Date Last Indicated Resolved Time ESBL Comment: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/05/17, 06/08/17, 08/26/17 01/08/2017 08/29/2019 documented as of this encounter Care Teams Central Service Supply Distributor Relationship Specialty Start Date End Date Simon Claros MD PCP - General Internal Medicine 09/22/12 04/14/21 Chan Duke MD [address] [facility] 150 [place] [address] PCP - General Internal Medicine 08/21/21 12/15/22 Simon Claros MD Assigned PCP 06/18/16 03/01/21 Deidra Whitehead DPM, Podiatry/Foot and Ankle Surgery [id number] [place] [address] [address] [place] [address] Assigned Musculoskeletal Provider 09/06/20 10/26/20 Jordin Allred DPM [address] [facility] 300 [place], [place] [address] Assigned Musculoskeletal Provider 03/02/21 12/18/22 Chan Olivarez MD [address] [place] [phone] Assigned PCP 03/02/21 04/09/21 Simon Claros MD Assigned PCP 04/10/21 05/31/21 Chan Olivarez MD [address] [place] [phone] Assigned PCP 06/01/21 08/23/21 [place] [address] [place] [address] Assigned PCP 08/24/21 12/18/22 Aaron Garcia MD 500 [place], [place] [address] Assigned Cancer Care Provider 10/12/21 05/15/22 Yris Perez MD 420 [facility] 286 [place], [place] [address] Assigned Cancer Care Provider 05/16/22 11/05/23 Jordin Allred DPM [address] [facility] [address] [place] [address] Assigned Surgical Provider 12/19/22 Guillermo Rojas APRN MAINTENANCE MECHANIC [address] [place] [address] Assigned PCP 12/19/22 02/19/23 Chan Olivarez MD [address] [place] [phone] Assigned PCP 02/20/23 documented as of this encounter
--- OUTSIDE RECORDS SUMMARY | 2023-11-23 08:28 | XMS_ITS | Encounter Summary ---
Author Name Unknown Organization [place] Address [address] [facility] [place] [address] Care Team Providers Care Wire Welder Name Role Phone Jordin Allred DPM Unavailable [phone] Chan Duke MD Primary Care Provider Chan Duke MD Unavailable [phone] Yris Perez MD Unavailable Jordin Allred DPM Unavailable [phone] Guillermo Rojas APRN BIOLOGY MANAGER Unavailable [phone] Chan Olivarez MD Unavailable [phone] Encounter Details Date Type Department Care Team (Late st Contact Info) Description 07/24/[address] [address] [facility] Social History Tobacco Use Types Packs/Day Years Used Date Smoking Tobacco: Passive Smo ke Exposure - Never Smoker Smokeless Tobacco: Never Alcohol Use Standard Drinks/Week Comments No 0 (1 standard drink = 0.6 oz pur e alcohol) PHQ-2 Answer Date Recorded PHQ-2 Score 0 01/29/2022 Sex and Gender Information Value Date Recorded Sex Assigned at Female 01/27/2022 12:36 PM CDT Gender Identity Female 01/27/2022 12:36 PM CDT Sexual Orientation Straight 09/29/2021 10 :51 AM 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 No / Unsure 07/09/2022 9:17 AM CDT documented as of this encounter Plan of Treatment Not on file documented as of this encounter Visit Diagnoses Not on filedocumented in this encounter Additional Health Concerns Infection Onset Date Last Indicated Resolved Time ESBL Comment: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/05/17, 06/08/17, 08/26/17 01/08/2017 08/29/2019 documented as of this encounter Care Teams Wire Welder Relationship Specialty Start Date End Date Chan Duke MD [address] [address] PCP - General Internal Medicine 08/21/21 12/15/22 Jordin Allred DPM [address] [facility] [address] [place] [address] Assigned Musculoskeletal Provider 03/02/21 12/18/22 [place] [address] [place] [address] Assigned PCP 08/24/21 12/18/22 Yris Perez MD 420 [facility] 286 [place], [place] [address] Assigned Cancer Care Provider 05/16/22 11/05/23 Jordin [place]red [place]PM [address] [place], [place] [address] Assigned Surgical Provider 12/19/22 Guillermo Rojas APRN [facility] [address] [place] [address] Assigned PCP 12/19/22 02/19/23 Chan Olivarez MD [address] [place] [phone] Assigned PCP 02/20/23 documented as of this encounter
--- OUTSIDE RECORDS SUMMARY | 2023-11-23 08:28 | XMS_ITS | Encounter Summary ---
Author Name Unknown Organization [place] Address [address] [facility] [place] [address] Care Team Providers Care Helper Teacher Name Role Phone Jordin Allred DPM Unavailable [phone] Chan Duke MD Primary Care Provider [phone] Chan Duke MD Unavailable [phone] Yris Perez MD Unavailable Jordin Allred DPM Unavailable [phone] Guillermo Rojas APRN ACCOUNTING DIRECTOR Unavailable Chan Olivarez MD Unavailable [phone] Encounter Details Date Type Department Care Team (Late st Contact Info) Description 07/24/2022 [facility] [address] [place] [address] [facility] [place] [phone] Yris Perez MD 420 [facility] 286 [place] [address] Social History Tobacco Use Types Packs/Day [...] Sexual Orientation Straight 09/29/2021 10 :51 AM 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 MANAGER COVID-19 Exposure Response Date Recorded In the [...] documented as of this encounter Care Teams Helper Teacher Relationship Specialty Start Date End Date Chan Duke MD [address] [address] PCP - General Internal Medicine 08/21/21 12/15/22 Jordin Allred DPM [address] [place] [address] [address] [place] [address] Assigned Musculoskeletal Provider 03/02/21 12/18/22 [place] [address] [place] [address] Assigned PCP 08/24/21 12/18/22 Yris Perez MD [address] [place] [address] 286 [place] [address] Assigned Cancer Care Provider 05/16/22 11/05/23 Jordin Allred DPM [address] [employer] [facility] [address] [place] [address] Assigned Surgical Provider 12/19/22 Guillermo Rojas APRN ACCOUNTING DIRECTOR [address] [place] [address] Assigned PCP 12/19/22 02/19/23 Chan Olivarez MD [address] [place] [phone] Assigned PCP 02/20/23 documented as of this encounter
--- OUTSIDE RECORDS SUMMARY | 2023-11-23 08:28 | XMS_ITS | Encounter Summary ---
Author Name Unknown Organization [place] Address [address] [facility] [place] [address] Care Team Providers Care Change Management Specialist Name Role Phone Jordin Allred DPM Unavailable [phone] Chan Duke MD Primary Care Provider Chan Duke MD Unavailable [phone] Aaron Garcia MD Unavailable [phone] Yris Perez MD Unavailable [phone] Jordin AllredM Unavailable [phone] Guillermo Rojas APRN BILLING AND ACCOUNTING STAFF ASSISTANT Unavailable [phone] Chan Olivarez MD Unavailable [phone] Encounter Details Date Type Department Care Team (Late st Contact Info) Description 04/24/2022 Telephone [facility] [place] [address], [place] [address] [facility] [place] [phone] Aaron Garcia MD 500 [place] [address] Social History Tobacco Use Types [...] Sexual Orientation Straight 09/29/2021 10 :51 AM SERVICE INSPECTOR COVID-19 Exposure Response Date Recorded In the last 10 days, have josh u been in contact with someone who was confirmed or suspected to have Coronavirus/COVID-19? No / Unsure 10/11/2022 5:14 AM SERVICE INSPECTOR documented as of this encounter Miscellaneous Notes * Telephone Encounter - Mary Jane Pruitt - 04/24/2022 1:37 PM CDT Patient called to cancel appointment with Dr Garcia on 05/08/22. Patient states she will continue with Dr Montes at the [place] location which is closer to her home. documented in this encounter Plan of Treatment Not on file documented as of this encounter Visit Diagnoses Not on filedocumented in this encounter Additional Health Concerns Infection Onset Date Last Indicated Resolved Time ESBL Comment: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/05/17, 06/08/17, 08/26/17 01/08/2017 08/29/2019 documented as of this encounter Care Teams Change Management Specialist Relationship Specialty Start Date End Date Chan Duke MD [address] [facility] [address] [address] [address] PCP - General Internal Medicine 08/21/21 12/15/22 Jordin Allred DPM [address] [facility] [address] [place] [address] Assigned Musculoskeletal Provider 03/02/21 12/18/22 [place] [address] [place] [address] Assigned PCP 08/24/21 12/18/22 Aaron Garcia MD 500 [place] [address] Assigned Cancer Care Provider 10/12/21 05/15/22 Yris Perez MD 420 [facility] 286 [place] [address] Assigned Cancer Care Provider 05/16/22 11/05/23 [place] [address] [facility] [address] [place] [address] Assigned Surgical Provider 12/19/22 Guillermo Rojas APRN [facility] [address] [place] [address] Assigned PCP 12/19/22 02/19/23 Chan Olivarez MD [address] [phone] Assigned PCP 02/20/23 documented as of this encounter
--- OUTSIDE RECORDS SUMMARY | 2023-11-23 08:28 | XMS_ITS | Encounter Summary ---
Author Name Unknown Organization [place] Address [address] [place] [address]. [place] [address] Care Team Providers Care Sampler Radioactive Waste Name Role Phone Simon Claros MD Primary Care Provider Unavail able Simon Claros MD Unavailable Unavailable Deidra Whitehead DPM, Podiatry /Foot and Ankle Surgery Unavailable Jordin AllredM Unavailable [phone] Chan Olivarez MD Unavailable [phone] Simon Claros MD Unavailable Unavailable Chan Olivarez MD Unavailable [phone] Chan Duke MD Primary Care Provider Chan Duke MD Unavailable Aaron Garcia MD Unavailable [phone] Yris Perez MD Unavailable Jordin AllredM Unavailable [phone] Guillermo Rojas APRN RING CONDUCTOR Unavailable Chan Olivarez MD Unavailable [phone] Reason for Visit * Reason Comments Medication Refill Encounter Details Date Type Department Care Team (Late st Contact Info) Description 08/08/[address], [address] [place] [address] Simon Claros MD Medication Refill Social History [...] Sexual Orientation Straight 09/29/2021 10 :51 AM CENTRAL SCHEDULER documented as of this encounter Plan of Treatment Not on file documented as of this encounter Visit Diagnoses Diagnosis Acute idiopathic gout of left foot documented in this encounter Additional Health Concerns Infection Onset Date Last Indicated Resolved Time ESBL Comment: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/05/17, 06/08/17, 08/26/17 01/08/2017 08/29/2019 documented as of this encounter Care Teams Sampler Radioactive Waste Relationship Specialty Start Date End Date Simon Claros MD PCP - General Internal Medicine 09/22/12 04/14/21 Chan Duke MD 6545 [facility] 150 [place] [address] PCP - General Internal Medicine 08/21/21 12/15/22 Simon Claros MD Assigned PCP 06/18/16 03/01/21 Deidra Whitehead DPM, Podiatry/Foot and Ankle Surgery [id number] [place] [address] 300 [place] [address] Assigned Musculoskeletal Provider 09/06/20 10/26/20 Jordin Allred DPM [address] [facility] 300 [place], [place] [address] Assigned Musculoskeletal Provider 03/02/21 12/18/22 Chan Olivarez MD [address] [place] [phone] Assigned PCP 03/02/21 04/09/21 Simon Claros MD Assigned PCP 04/10/21 05/31/21 Chan Olivarez MD [address] [place] [phone] Assigned PCP 06/01/21 08/23/21 [place] [address] [place] [address] Assigned PCP 08/24/21 12/18/22 Aaron Garcia MD 500 [place], [place] [address] Assigned Cancer Care Provider 10/12/21 05/15/22 Yris Perez MD 420 [facility] 286 [place], [place] [address] Assigned Cancer Care Provider 05/16/22 11/05/23 Jordin Allred DPM [address] [facility] [address] [place] [address] Assigned Surgical Provider 12/19/22 Guillermo Rojas APRN RING CONDUCTOR [address] [place] [address] Assigned PCP 12/19/22 02/19/23 Chan Olivarez MD [address] [place] [phone] Assigned PCP 02/20/23 documented as of this encounter
--- OUTSIDE RECORDS SUMMARY | 2023-11-23 08:28 | XMS_ITS | Encounter Summary ---
Author Name Unknown Organization [place] Address [address] [place] [address]. [place] [address] Care Team Providers Care Stucco Plasterer Name Role Phone Simon Claros MD Primary Care Provider Unavail able Simon Claros MD Unavailable Unavailable Deidra Whitehead DPM, Podiatry /Foot and Ankle Surgery Unavailable Jordin AllredM Unavailable [phone] Chan Olivarez MD Unavailable [phone] Simon Claros MD Unavailable Unavailable Chan Olivarez MD Unavailable [phone] Chan Duke MD Primary Care Provider Chan Duke MD Unavailable [phone] Aaron Garcia MD Unavailable [phone] Yris Perez MD Unavailable [phone] Jordin AllredM Unavailable [phone] Guillermo Rojas APRN STUNT PERFORMER Unavailable Chan Olivarez MD Unavailable [phone] Reason for Visit * Reason Onset Date Comments Call Back 08/22/2020 feeling worse Encounter Details Date Type Department Care Team (Late st Contact Info) Description 08/22/[address], [address] [place] [address] Simon Claros MD Call Back (feeling worse) Social History Tobacco Use Types Packs/Day Years Used Date Smoking Tobacco: Passive Smo ke Exposure - Never Smoker Smokeless Tobacco: Never Alcohol Use Standard Drinks/Week Comments No 0 (1 standard drink = 0.6 oz pur e alcohol) PHQ-2 Answer Date Recorded PHQ-2 Score 1 08/21/2020 Sex and Gender Information Value Date Recorded Sex Assigned at Female 01/27/2022 12:36 PM CDT Gender Identity Female 01/27/2022 12:36 PM CDT Sexual Orientation Straight 09/29/2021 10 :51 AM 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 No / Unsure 08/22/2020 3:28 PM CDT documented as of this encounter Miscellaneous Notes * Telephone Encounter - Mariza Mariscal RN - [...] the ER for evaluation Mariza Cisneros RN * Telephone Encounter - Masha Ureña - 08/22/2020 1:48 PM CDT Reason for Call: Other call back Detailed comments: patient was seen Yesterday and was given abx- she is vomiting and cannot keep the medications down, not feeling good at all please advise Phone Number Patient can be reached at: Home number on file [phone] (home) Best Time: Today Can we leave [...] documented as of this encounter Care Teams Stucco Plasterer Relationship Specialty Start Date End Date Simon Claros MD PCP - General Internal Medicine 09/22/12 04/14/21 Chan Duke MD 6545 [facility] 150 [place] [address] PCP - General Internal Medicine 08/21/21 12/15/22 Simon Claros MD Assigned PCP 06/18/16 03/01/21 Deidra Whitehead DPM, Podiatry/Foot and Ankle Surgery [address] [facility] 300 [place] [address] Assigned Musculoskeletal Provider 09/06/20 10/26/20 Jordin Allred DPM [address] [facility] [address] [place] [address] Assigned Musculoskeletal Provider 03/02/21 12/18/22 Chan Olivarez MD [address] [place] [phone] Assigned PCP 03/02/21 04/09/21 Simon Claros MD Assigned PCP 04/10/21 05/31/21 Chan Olivarez MD [address] [place] [phone] Assigned PCP 06/01/21 08/23/21 [place] [address] [place] [address] Assigned PCP 08/24/21 12/18/22 Aaron Garcia MD 500 [place] [address] Assigned Cancer Care Provider 10/12/21 05/15/22 Yris Perez MD 420 [facility] 286 [place], [place] [address] Assigned Cancer Care Provider 05/16/22 11/05/23 Jordin Allred DPM [address] [facility] [address] [place] [address] Assigned Surgical Provider 12/19/22 Guillermo Rojas APRN STUNT PERFORMER [address] [place] [address] Assigned PCP 12/19/22 02/19/23 Chan Olivarez MD [address] [phone] Assigned PCP 02/20/23 documented as of this encounter
--- OUTSIDE RECORDS SUMMARY | 2023-11-23 08:28 | XMS_ITS | Encounter Summary ---
Author Name Unknown Organization [place] Address [address] [facility] [place] [address] Care Team Providers Care Gas Station Operator Name Role Phone Jordin AllredM Unavailable [phone] Chan Duke MD Primary Care Provider [phone] Chan Duke MD Unavailable [phone] Aaron Garcia MD Unavailable [phone] Yris Perez MD Unavailable [phone] Jordin Allred DPM Unavailable [phone] Guillermo Rojas APRN MANAGER ACADEMIC Unavailable [phone] Reason for Visit * Reason Comments *-*INCOMING RECORDS*-* Encounter Details Date Type Department Care Team (Late st Contact Info) Description 10/06/2021 PRE VISIT [facility] [address] [facility] [place] [phone] Aaron Garcia MD [address] [place] [address] *-*INCOMING RECORDS*-* Social History Tobacco Use Types Packs/Day Years [...] Sexual Orientation Straight 09/29/2021 10 :51 AM 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 No / Unsure 10/11/2022 5:14 AM OD GRINDER OPERATOR documented as of this encounter Progress Notes * Elizabeth Feldman - 10/06/2021 11:59 PM CST RECORDS STATUS - BREAST RECORDS REQUESTED FROM: [facility]/ [place] [facility] DATE REQUESTED: 10/06/2021 NOTES DETAILS STATUS OFFICE NOTE from referring provider OFFICE NOTE from medical oncologist Complete [facility] Records are in [facility] OFFICE NOTE from surgeon Complete See Breast Biopsy in [facility] 02/08/2017 OFFICE NOTE from radiation oncologist DISCHARGE SUMMARY from hospital Complete 02/08/2017 Acute Post Op Pain DISCHARGE REPORT from the ER OPERATIVE REPORT Complete See Breast Biopsy in [facility] 02/08/2017 MEDICATION LIST Complete [facility] CLINICAL TRIAL TREATMENTS TO DATE LABS REQUEST BLOCKS FOR ALL BREAST CANCER PTS PATHOLOGY REPORTS (Tissue diagnosis, Stage, ER/MI percentage positive and intensity of staining, HER2 IHC, FISH, and all biopsies from breast and any distant metastasis) Complete 02/08/2017 <INVASIVE CARCINOMA OF THE BREAST: Treated by lumpectomy and right axillary sentinel lymph node dissection Applies to: Lumpectomy plus 4 sentinel lymph nodes 01/25/2017 Right breast, 1:00, 8 cm from nipple, stereotactic guided needle biopsy- - Invasive mammary carcinoma, with ductal and lobular features, [place] grade 2/3(Cecilia score 6/9) (Please see microscopic description) -Estrogen receptor positive (>80%) and progesterone receptor positive (>80%) -Her 2 by FISH is ordered and pending GENONOMIC TESTING TYPE: (Next Generation Sequencing, including Foundation One testing, and Oncotype score) Complete 01/25/2017 Her 2 Dominick Fish IMAGING (NEED IMAGES & REPORT) CT SCANS MRI MAMMO Complete 03/24/2021, 03/22/2021 more in PACS ULTRASOUND Complete 03/22/2021 more in PACS PET BONE SCAN BRAIN MRI Action Action Taken 09/12/2021 11:04AM KEB I faxed a request for ALL records to [place] [facility] 09/18/2021 8:21AM ELEANOR Hassan faxed records from [facility] to HIM GRINDER OPERATOR documented in this encounter Plan of Treatment Not on file documented as of this encounter Visit Diagnoses Not on filedocumented in this encounter Additional Health Concerns Infection Onset Date Last Indicated Resolved Time ESBL Comment: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/05/17, 06/08/17, 08/26/17 01/08/2017 08/29/2019 documented as of this encounter Care Teams Gas Station Operator Relationship Specialty Start Date End Date Chan Duke MD [address] [address] PCP - General Internal Medicine 08/21/21 12/15/22 Jordin Allred DPM [facility] [place]note 2] [facility] [facility] [address] [address] Assigned Musculoskeletal Provider 03/02/21 12/18/22 [place] [address] [place] [address] Assigned PCP 08/24/21 12/18/22 Aaron Garcia MD [address] [place] [address] [id number] Assigned Cancer Care Provider 10/12/21 05/15/22 Yris Perez MD [address] [place] [address] [id number] Assigned Cancer Care Provider 05/16/22 11/05/23 Jordin Allred DPM [address] [employer] [address] [place] [address] Assigned Surgical Provider 12/19/22 Guillermo Rojas APRN [facility] [address] [place] [address] Assigned PCP 12/19/22 02/19/23 documented as of this encounter
--- OUTSIDE RECORDS SUMMARY | 2023-11-23 08:28 | XMS_ITS | Encounter Summary ---
Author Name Unknown Organization [place] Address [facility] [place] [address] Care Team Providers Care Die Drawing Checker Name Role Phone Jordin Allred DPM Unavailable [phone] Chan Duke MD Primary Care Provider Chan Duke MD Unavailable [phone] Yris Perez MD Unavailable [phone] Jordin Allred DPM Unavailable [phone] Guillermo Rojas APRN COTA Unavailable Chan Olivarez MD Unavailable [phone] Encounter Details Date Type Department Care Team (Late st Contact Info) Description 08/17/2022 [facility] [address] [place] [phone] Guillermo Rojas APRN COTA [address] [place] [address] Social History Tobacco Use Types Packs/Day Years [...] Sexual Orientation Straight 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 Response Date Recorded In the [...] as of this encounter Care Teams Die Drawing Checker Relationship Specialty Start Date End Date Chan Duke MD [address] [facility] [address] [address] PCP - General Internal Medicine 08/21/21 12/15/22 Jordin Allred DPM [address] [facility] [address] [place] [address] Assigned Musculoskeletal Provider 03/02/21 12/18/22 [place] [address] [place] [address] Assigned PCP 08/24/21 12/18/22 Yris Perez MD [address] [place] [address] Assigned Cancer Care Provider 05/16/22 11/05/23 Jordin Allred DPM [address] [facility] [address] [place] [address] Assigned Surgical Provider 12/19/22 Guillermo Rojas APRN [facility] [address] [place] [address] Assigned PCP 12/19/22 02/19/23 Chan Olivarez MD [address] [place], [place] [address] [address] Assigned PCP 02/20/23 documented as of this encounter
--- NOTE | 2023-11-23 08:45 | CRLHL7_ITS ---
For Patients: As a result of the Century Cures Act, medical imaging exams and procedure reports are released immediately into your electronic medical record. You may view this report before your referring provider. If you have questions, please contact your health care provider. DIGITAL DIAGNSOTIC BILATERAL MAMMOGRAM USING TOMOSYNTHESIS AND COMPUTER-AIDED DETECTION LEFT BREAST ULTRASOUND INDICATION: 78-year-old female. Palpable lump inferomedial LEFT breast at approximately the 7 o`clock position along the inframammary fold. Personal history of breast cancer on the RIGHT status post lumpectomy and radiation therapy. TECHNIQUE: CC and MLO views were obtained. This digital study was evaluated the assistance of computer-aided detection. Digital breast tomosynthesis utilized in interpretation. COMPARISON: 04/21/2023. 04/17/2022. FINDINGS: Breast Composition: The breasts are heterogeneously dense which may obscure small masses. Postsurgical and post treatment changes of the RIGHT breast from lumpectomy and radiation therapy. Benign calcifications are present in each breast. No suspicious microcalcifications. No abnormality within the inferomedial LEFT breast to correspond of the patient`s palpable abnormality and therefore ultrasound will be performed. Please see ultrasound from the same date. IMPRESSION: Stable and negative mammograms. ULTRASOUND: Directed LEFT breast ultrasound with this radiologist present. The LEFT breast is carefully scanned between the 6 o`clock and 8 o`clock position. Control Room Operator images obtained at the 7 o`clock position 9 cm from the nipple. Only normal breast tissue is identified. No underlying mass. No architecture distortion. No shadowing. These findings were discussed in detail with the patient. Any further workup or follow-up should be based on clinical grounds. Annual mammography is also recommended. IMPRESSION: Negative directed LEFT breast ultrasound. BI-RADS Category 1: Negative A lay language report of this examination will be provided to the patient. Dictated by: Jose Bhatti MD @11/23/2023 9:56:13 AM jj/Dictated by: Jose Bhatti MD @ 11/23/2023 9:55:00 AM (Electronically Signed)
--- NOTE | 2023-11-23 09:15 | CRLHL7_ITS ---
For Patients: As a result of the Cures Act, medical imaging exams and procedure reports are released immediately into your electronic medical record. You may view this report before your referring provider. If you have questions, please contact your health care provider. PLEASE SEE DIGITAL DIAGNOSTIC BILATERAL MAMMOGRAM PERFORMED SAME DAY CRL:melina summers/Dictated by: Jose Bhatti MD @ 11/23/2023 9:56:00 AM (Electronically Signed)
== END 2023-11-23 08:26 | disposition home or self-care (01) ==
LOC: MAMMO 08:25
PROVIDERS: PCP Internal Medicine; Visit Provider Internal Medicine
DX: N63.20 Unspecified lump in the left breast, unspecified quadrant (principal)
CPT/HCPCS: 76642; 77066; G0279

== ENCOUNTER 2024-05-11 12:34 | Outpatient (RCR) | payer MEDICARE, SELFPAY ==
[2024-05-11 14:07] LABS: Basophils Absolute Auto 0.05 K/uL (0.00-0.30); Basophils Percent Auto 0.9 % (0.0-3.0); Eosinophils Percent Auto 6.9 % (0.0-7.0); Hematocrit 45.2 % (33.0-51.0); Immature Granulocytes Abs Auto 0.01 K/uL (0.00-0.30); Immature Granulocytes Pct Auto 0.2 %; Lymphocytes Absolute Auto 1.38 K/uL (0.90-2.90); Lymphocytes Percent Auto 23.8 % (20-44); Mean Corpuscular HGB Conc 33 gm/dL (32-36); Mean Corpuscular Hemoglobin 32 pg (26-34); Mean Corpuscular Volume 95 fL (80-100); Monocytes Percent Auto 11.7 % (0.0-11.0); Neutrophils Absolute Auto 3.28 K/uL (1.7-7.0); Neutrophils Percent Auto 56.5 % (42.0-72.0); Platelet Count* 224 K/uL (140-440); Red Blood Count 4.76 m/uL (4.00-5.20)
[2024-05-11 14:08] LABS: Slide Review Reflex No
[2024-05-11 14:18] LABS: Albumin* 4.4 g/dL (3.3-5.0)
[2024-05-11 14:19] LABS: Chloride* 104 mmol/L (96-114); Potassium* 4.2 mmol/L (3.6-5.1); Sodium* 139 mmol/L (135-149)
[2024-05-11 14:21] LABS: Anion Gap 4 mEq/L (7-15); Aspartate Amino Transferase* 45 U/L (12-35); Bilirubin Total* 0.6 mg/dL (0.1-1.5); Carbon Dioxide* 31 mmol/L (20-32); Creatinine* 0.8 mg/dL (0.5-1.5); Estimated Glomerular Filt Rate 76 ml/min; Total Protein* 6.9 g/dL (6.0-8.3)
[2024-05-11 14:22] LABS: Alanine Aminotransferase* 35 U/L (4-35); Alkaline Phosphatase* 85 U/L (40-150); Blood Urea Nitrogen* 17 mg/dL (7-30); Glucose* 92 mg/dL (60-115)
[2024-05-14 17:10] LABS: Vitamin D, 1,25-Dihydroxy 69.5 pg/mL (19.9-79.3)
== END 2024-11-07 23:59 | disposition home or self-care (01) ==
LOC: CCIC 12:34
PROVIDERS: PCP Internal Medicine; Visit Provider Physician Assistant
DX: C50.911 Malignant neoplasm of unspecified site of right female breast (principal); Z17.0 Estrogen receptor positive status [ER+]; R53.83 Other fatigue; R74.01 Elevation of levels of liver transaminase levels; M85.80 Other specified disorders of bone density and structure, unspecified site
CPT/HCPCS: 36415; 80053; 82652; 84443; 85025; 99204; 99214; G0463

== ENCOUNTER 2024-07-20 13:00 | Outpatient (CLI) | payer MEDICARE, SELFPAY ==
--- OUTSIDE RECORDS SUMMARY | 2024-07-25 08:39 | XMS_ITS | Encounter Summary ---
Author Organization [place] Address [address] [place] [address] Care Team Providers Care Meat Blender Name Role Phone Jordin Allred DPM Unavailable [phone] Chan Duke MD Primary Care Provider Chan Duke MD Unavailable [phone] Yris Perez MD Unavailable Jordin Allred DPM Unavailable Guillermo Rojas APRN ASSOCIATE PROFESSOR OF BIOSTATISTICS Unavailable Chan Olivarez MD Unavailable [phone] Clinic - [facility] Unavail able Encounter Details Date Type Department Care Team (Late st Contact Info) Description 07/24/2022 MyC Medical Advice [facility] [place] [id number] [place] [address] [address] [facility] [place] [phone] Yris Perze MD [address] [facility] [address] [place] [address] Social History Tobacco Use Types [...] Sexual Orientation 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 [place] [address] Assigned PCP 08/24/21 12/18/22 Yris Perez MD [address] [facility] [address] [place], [place] [address] Assigned Cancer Care Provider 05/16/22 11/05/23 Jordin Allred DPM [address] [place] [address] Assigned Surgical Provider 12/19/22 Guillermo Rojas APRN [facility] [address] [place] [address] Assigned PCP 12/19/22 02/19/23 Chan Olivarez MD [address] [place] [phone] Assigned PCP 02/20/23 03/06/24 [facility] [address] [place] [address] Assigned PCP 03/07/24 documented as of this encounter
--- OUTSIDE RECORDS SUMMARY | 2024-07-25 08:39 | XMS_ITS | Clinical Summary ---
Author Organization [facility] Address [address] [place] [address] Care Team Providers Care Telesales Representative Name Role Phone Unassigned, Provider Primary Care Provider Unava ilable Source Comments You are receiving this document as you are listed as the primary care provider,follow-up provider, or the patient has been referred to you for consultation.This is in compliance with the Medicare and[facility] Hospital[facility] EHR Incentive Program,which states Providers who transition their patient to another setting of careor provider of care or refers their patient to another provider of care shouldprovide summary care record for each transition of care or referral. Spokeable Allergies Active Allergy Reactions Criticality Noted Date Comments Latex Other, see comments 05/27/2012 PN: sneezing, runny nose, Other 02/11/2009 PN: LW Other1: -latex:nasal congestion, eyes watering. LW Other2: -canteloupe, horses, cats, dust, molds, trees Medications Medication Sig Dispensed Refills Start Date End Date Status ALBUterol sulfate hfa (ALBUTEROL) 108 (90 BASE) MCG/ACT inhaler Inhale 2-4 Puffs by mouth every 4 hours as needed. Active compounded MAGIC MOUTH WASH (AKA MAGIC [...] (Polio) 07/14/2000 Influenza IIV3 (Trivalent) F feliciano Richeydose, 65+ Yrs ([address]) 12/01/2016 Influenza, Unspecified Formulation 11/23/2002 MPSV4 (Menomune) [...] Services) 1945 Medicare Annual Wellness Visit 1945 Zoster/Shingles (1 of 2) 1997 Dexa 2012 Pneumococcal 65+ Yrs (2 - PPSV23 or PCV20) 12/16/2016 12/16/2015 DTaP/Tdap/Td (2 - Tdap) 02/11/2019 02/11/2009, 07/14 COVID-19 Vaccine ( - season) 2024 Influenza (#1) 2024 12/01/2016, 10/15, 10/28/2005, Additional history exists HepA [...] age to complete this topic Care Teams Telesales Representative Relationship Specialty Start Date End Date Unassigned, Provider [address] [place] [address] PCP - General 05/23/01
--- OUTSIDE RECORDS SUMMARY | 2024-07-25 08:39 | XMS_ITS | Referral Summary ---
Author Organization [facility] Address [address] [facility] [place] [address] Care Team Providers Care Scale Model Maker Name Role Phone Clinic - [facility] Unavail able Allergies Active Allergy Reactions Criticality Noted Date Comments Birch Trees Unknown Medium 01/29/2022 Chlorhexidine Rash Low 03/10/2016 Latex Rash Low 05/27/2012 Other reaction(s): Other, see comments PN: sneezing, runny nose, [place] Trees Unknown Medium 01/29/2022 No Clinical Screening - See Comments 02/11/2009 PN: LW Other1: -latex:nasal congestion, eyes watering. LW Other2: -canteloupe, horses, cats, dust, molds, trees Sulfamethoxazole 06/10/2016 Heartburn Medications Medication Sig Dispensed Refills Start Date End Date Status loratadine (CLARITIN) 10 MG tablet Take 10 mg by mouth Active Cholecalciferol (VITAMIN D3 PO) Take 2,000 Units by mouth daily Active albuterol (PROAIR HFA) 108 (90 Base) MCG/ACT inhalerIndications:Ch ronic obstructive pulmonary disease, unspecified COPD type (H) INHALE 2 PUFFS 4 TIMES A DAY NEEDED 8.5 Inhaler 11 02/05/2020 Active calcium carbonate (OS-ROSALINO) 500 MG tablet Take 1 tablet by mouth daily Active CRANBERRY PO Take by mouth daily Active Ascorbic Acid (VITAMIN C PO) Active allopurinol (ZYLOPRIM) 300 MG tabletIndications: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 TAKE 1 TABLET BY MOUTH EVERY DAY 90 tablet 2 09/02/2021 Active vitamin B complex with vitamin C (VITAMIN B COMPLEX) tablet Take 1 tablet by mouth daily Active Active Problems Problem Noted Date Diagnosed [...] Administration Dates Next Due Flu, Unspecified 11/23/2002 [id number] Novel Flu 11/19/2009 HepA-Peds, Unspecified 07/14/2000 HepB, Unspecified 05/30/2001 Hepatitis A (ADULT 19+) 07/14/2000,11/15/1999 Hepatitis B, Adult 05/30/2001,08/16/2000, 000 Hepatitis B, Peds 08/16/2000,07/14/2000 Influenza (High Dose) Trival ent,PF (Fluzone) 12/01/2016 Influenza (IIV3) PF 11/02/2006, 5,11/13/2004,11/23 Meningococcal (Menomune??) [...] Sexual Orientation Straight 09/29/2021 10 :51 AM FRONT OFFICE MEDICAL ASSISTANT Last Filed Vital Signs Vital Sign Reading Time Taken Comments Blood Pressure 177/85 10/11/2022 11:00 AM FRONT OFFICE MEDICAL ASSISTANT Pulse 80 10/11/2022 11:00 AM FRONT OFFICE MEDICAL ASSISTANT Temperature 36.8 ??C (98.3 ??F) 10/11/2022 5:28 AM CS T Respiratory Rate 16 10/11/2022 5:28 AM FRONT OFFICE MEDICAL ASSISTANT Oxygen Saturation 96% 10/11/2022 11:00 AM FRONT OFFICE MEDICAL ASSISTANT Inhaled Oxygen Concentration - - Weight 66.2 kg (146 lb) 08/14/2022 2:02 PM CDT Height 167.6 cm (5' 6) 08/14/2022 2:02 PM CDT Body Mass Index 23.57 08/14/2022 2:02 PM CDT Plan of Treatment Not on file Medical Devices Implanted Type Area Exhibition Specialist Device Identifier Shelf Expiration Date Model / Serial / Lot Imp Cup Tay [place] 56mm 1217-22-056 Implanted:Qty: 1 on 03/10/2016 by Wayne Estevez MD at [facility] Right: Hip [employer] 01/12/2026 [id number] / / [id number] Imp Fernley Hole Eliminator Hip Depuy Duraloc 1246-03-000 Implanted:Qty: 1 on 03/10/2016 by Wayne Estevez MD at [facility] Right: Hip [employer] 09/14/2025 [id number] / / [id number] Imp Scr Bone Can Tay 6.5x20mm 1217-20-500 Implanted:Qty: 1 on 03/10/2016 by Wayne Estevez MD at [facility] Right: Hip [employer] 09/14/2025 [id number] / / [id number] Imp Scr Bone Can Tay 6.5x40mm 1217-40-500 Implanted:Qty: 1 on 03/10/2016 by Wayne Estevez MD at [facility] Right: Hip [employer] 12/15/2025 [id number] / / [id number] Imp Scr Depuy [place] Canc 6.5x15mm 1217-15-500 Implanted:Qty: 1 on 03/10/2016 by Wayne Estevez MD at [facility] Right: Hip [employer] 08/14/2025 [id number] / / [id number] [place] Altrx Polyethylene Acetabular Liner +4 Neutral 36mm Id 56mm Od Implanted:Qty: 1 on 03/10/2016 by Wayne Estevez MD at [facility] Right: Hip Depuy 01/12/2021 [id number] / / [id number] Tri-Lock Bps Femoral Stem 10/28 Taper Tri-Lock Bps Gription Size 2 Std 99mm Implanted:Qty: 1 on 03/10/2016 by Wayne Estevez MD at [facility] Right: Hip Depuy 01/12/2026 [id number] / / [id number] Biolox Delta Ceramic Femoral Head +5.0 36mm Cristina 10/28 Taper Implanted:Qty: 1 on 03/10/2016 by Wayne Estevez MD at [facility] Right: Hip Depuy 09/14/2020 [id number] / / [id number] Procedures Procedure Name Priority Date/Time Associated Diagnosis Comments COMPREHENSIVE METABOLIC PANEL STAT 10/11/2022 5:38 AM FRONT OFFICE MEDICAL ASSISTANT MA SCREENING BILATERAL W/ RICARDO Routine 04/17/2022 10:50 AM CDT Visit for screening mammogram DX HIP/PELVIS/SPINE W LAT FRACTION ANALYSIS Routine 12/22/2021 3:09 PM FRONT OFFICE MEDICAL ASSISTANT Aromatase inhibitor use COLONOSCOPY - HIM SCAN 12:00 AM CDT LIPID REFLEX TO DIRECT LDL PANEL Routine 08/05/2021 9:07 AM CDT Encounter for preventive health examination HC SPIROMETRY, BREATH CAPACITY Routine 01/30/2019 10:11 AM CDT Chronic obstructive pulmonary disease, unspecified COPD type (H) from Last 3 Months or Most Recently Relevant to Health Maintenance Results * (ABNORMAL) Comprehensive metabolic panel (10/11/2022 5:38 AM FRONT OFFICE MEDICAL ASSISTANT) Sodium 131(L) 136 - 145 mmol/L 10/11/2022 6:48 AM [facility] Potassium >10.0(HH) 3.4 - 5.3 mmol/L 10/11/2022 6:48 AM [facility] Chloride 101 98 - 107 mmol/L 10/11/2022 6:48 AM [facility] Carbon Dioxide (CO2) 27 22 - 29 mmol/L 10/11/2022 6:48 AM [facility] Anion Gap 3(L) 7 - 15 mmol/L 10/11/2022 6:48 AM [facility] Urea Nitrogen 15.9 8.0 - 23.0 mg/dL 10/11/2022 6:48 AM [facility] Creatinine 0.85 0.51 - 0.95 mg/dL 10/11/2022 6:48 AM [facility] Calcium 8.9 8.8 - 10.2 mg/dL 10/11/2022 6:48 AM [facility] Glucose 112(H) 70 - 99 mg/dL 10/11/2022 6:48 AM [facility] Alkaline Phosphatase 74 35 - 104 U/L 10/11/2022 6:48 AM FRONT OFFICE MEDICAL ASSISTANT LABORATORY AST 125(H) 10 - 35 U/L 10/11/2022 6:48 AM FRONT OFFICE MEDICAL ASSISTANT LABORATORY Comment:Specimen is hemolyze d which can falsely elevate AST. Analysis of a non-hemolyzed specimen may result in a lower value. ALT <5(L) 10 - 35 U/L 10/11/2022 6:48 AM FRONT OFFICE MEDICAL ASSISTANT LAB[facility]ATORY Protein Total 7.4 6.4 - 8.3 g/dL 10/11/2022 6:48 AM FRONT OFFICE MEDICAL ASSISTANT LABORATORY Albumin 4.0 3.5 - 5.2 g/dL 10/11/2022 6:48 AM FRONT OFFICE MEDICAL ASSISTANT LAB[facility]ATORY Bilirubin Total 0.5 <=1.2 mg/dL 10/11/2022 6:48 AM FRONT OFFICE MEDICAL ASSISTANT LABORATORY GFR Estimate 71 >60 mL/min/1. 73m2 10/11/2022 6:48 AM FRONT OFFICE MEDICAL ASSISTANT LABORATORY Comment:Effective October 162020 eGFRcr in adults is calculated using the 2020 CKD-EPI creatinine equation which includes age and gender (Ji et al., NEJM, DOI: 10.1056/GVSOmp2902140) Blood BLOOD SPECIMEN / Unknown Venipuncture / Unknown 10/11/2022 5:38 AM FRONT OFFICE MEDICAL ASSISTANT 10/11/2022 5:56 AM FRONT OFFICE MEDICAL ASSISTANT Andres Kelly MD LAB - BLOOD ORDERABL ES LABORATORY [facility] [address] [facility] (1st floor, no room number) [place] [address], [facility] [phone] * MA Screen Bilateral w/Ricardo (04/17/2022 10:50 AM CDT) Anatomical Region Laterality Modality Breast Bilateral Mammography Narrative 04/17/2022 2:32 PM CDT BILATERAL FULL FIELD DIGITAL SCREENING MAMMOGRAM WITH TOMOSYNTHESIS Performed on: 04/17/22 Compared to: 03/24/2021, 01/30/2019, 01/27/2018, and 01/13/2017 Technique: ??This study was evaluated with the assistance of Computer-Aided Detection. ??Breast Tomosynthesis was used in interpretation. Findings: The breasts are heterogeneously dense, which may obscure small masses. ??There are post-surgical changes in the right breast. There is no radiographic evidence of malignancy. IMPRESSION: ACR BI-RADS Category 2: Benign RECOMMENDED FOLLOW-UP: Annual routine screening mammogram The results and recommendations of this examination will be communicated to the patient. Aaron Garcia MD IMG MAMMOGRAPHY O RDERABLES * DX Hip/Pelvis/Spine w Lat Fraction Anna (12/22/2021 3:09 PM FRONT OFFICE MEDICAL ASSISTANT) Anatomical Region Laterality Modality Dexa Bone Mineral Den sity Narrative 12/23/2021 12:03 PM FRONT OFFICE MEDICAL ASSISTANT BONE DENSITOMETRY [address] [address] 12/22/2021 ?? PATIENT: Darshana Brooks CHART: [id number] : ??1945 AGE: ??76 year old SEX: ??female REFERRING PROVIDER: ??Aaron Garcia MD ?? PROCEDURE: ??Bone density scanning was performed using DXA technology of the lumbar spine and hip. ??Scanning was performed on a Frontier pte scanner. ??Reporting is completed in the form of a T-score. ??The T-score represents the standard deviation from peak bone mass based on a young healthy adult. ?? REFERENCE T-SCORES: ?Normal ?-1.0 and greater ?Osteopenia ? Between -1.0 and -2.5 ?Osteoporosis ? -2.5 and less ? RISK FACTORS:Early menopause before age 45, Fracture of foot, Condition related to bone loss: breast cancer therapy: arimidex, follow up osteopenia CURRENT TREATMENT: ??Calcium with Vitamin D, Zometa (zoledronic acid) ?? FINDINGS: ? Lumbar Spine (L1-L4) ?T-score: ??-0.7, marked degenerative changes present ? Left Femoral Neck ?T-score: ??-1.9 ? Forearm (radius 33%) ?T-score: ??-1.0 The right femur is not acceptable for evaluation due to previous arthroplasty. ? Lumbar (L1-L4) BMD: 1.108 ?Previous: 0.994 ? Left Total Hip BMD: 0.864 ? Previous: 0.826 ? Forearm (radius 33%) BMD: 0.790 ?? Previous: 0.760?? Comparison is made to another DXA performed on the same Frontier pte ?? machine on 02/28/2018. ?? LATERAL VERTEBRAL ASSESSMENT Procedure: ??Vertebral fracture assessment was performed in the lateral decubitus position using a [employer] ??densitometer. Indications for VFA: T-score of -1.0 or worse and age (female>69) Confounding factors for VFA: None. ??The LVA scan is interpretable from T8 to L4. VFA Findings: Using the semi-quantitative analysis of Adrián there was evidence of no spinal deformity VFA Impression: Darshana Brooks has no vertebral fractures identified on the VFA. IMPRESSION Osteopenia., Degenerative changes of the lumbar spine which may falsely elevate results. There has been significant increase in bone density of the lumbar spine. There has been a trend toward significant increase in bone density of the hip(s). There has been no significant change in bone density of the forearm. Recommendations include ensuring adequate Calcium and Vitamin D. Follow up can be considered in 3 years. Debi Ansari M.D. Electronically signed ?? Aaron Garcia MD IMRicki DEXA ORDERABL ES * COLONOSCOPY - HIM SCAN (08/15/2021 12:00 AM CDT) 08/15/2021 Provider Outside PROCEDURES * (ABNORMAL) Lipid panel reflex to direct LDL Fasting (08/05/2021 9:07 AM CDT) Cholesterol 221(H) <200 mg/dL 08/05/2021 1:52 PM CDT [facility] Triglycerides 152(H) <150 mg/dL 08/05/2021 1:52 PM CDT [facility] Direct Measure HDL 56 >=50 mg/dL 08/05/2021 1:52 PM CDT [facility] LDL Cholesterol Calculated 135(H) <=100 mg/dL 08/05/2021 1:52 PM CDT [facility] Non HDL Cholesterol 165(H) <130 mg/dL 08/05/2021 1:52 PM CDT [facility] Patient Fasting > 8hrs? Yes 08/05/2021 1:52 PM CDT [facility] Blood STRUCTURE OF RIGHT UPPER LIMB / Unknown Venipuncture / Unknown 08/05/2021 9:07 AM CDT 08/05/2021 9:07 AM CDT Narrative [facility] - 08/05/2021 1:52 PM CDT Cholesterol Desirable: ??<200 mg/dL Triglycerides Normal: ??Less than 150 mg/dL Borderline High: ??150-199 mg/dL High: ??200-499 mg/dL Very High: ??Greater than or equal to 500 mg/dL Direct Measure HDL Female: ??Greater than or equal to 50 mg/dL Male: ??Greater than or equal to 40 mg/dL LDL Cholesterol Desirable: ??<100mg/dL Above Desirable: ??100-129 mg/dL Borderline High: ??130-159 mg/dL High: ??160-189 mg/dL Very High: ??>= 190 mg/dL Non HDL Cholesterol Desirable: ??130 mg/dL Above Desirable: ??130-159 mg/dL Borderline High: ??160-189 mg/dL High: ??190-219 mg/dL Very High: ??Greater than or equal to 220 mg/dL Chan Duke MD LAB - BLOOD ORDERABL ES [facility] [address] Lab (no room number, 1st floor of clinic) [place] [address], [facility] [phone] * Spirometry, Breathing Capacity: Normal Order, Clinic Performed (01/30/2019 10:11 AM CDT) FEV-1 FVC FEV1/FVC FEF 25/75 Simon Claros MD PROCEDURES from Last 3 Months or Most Recently Relevant to Health Maintenance Additional Health Concerns Infection Onset Date Last Indicated ESBL Comment: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/05/17, 06/08/17, 08/26/17 01/08/2017 Advance Directives For more information, please contact: [phone] Documents on File Type Date Recorded Patient Supervisor Advertising Dispatch Clerks Expl anation Advance Directives and Living Will 03/10/2016 7:35 PM Health Care Directiv e 02/26/16 * Full Code (Latest Code Status on File) Date Activated Date Inactivated Comments 03/11/2016 1:43 PM 08/22/2020 3:28 PM * Full Code Date Activated Date Inactivated Comments 03/10/2016 3:43 PM 03/11/2016 1:43 PM Care Teams Scale Model Maker Relationship Specialty Start Date End Date Clinic - [facility] [address] [place] [address] Assigned PCP 03/07/24
--- OUTSIDE RECORDS SUMMARY | 2024-07-25 08:39 | XMS_ITS | Encounter Summary ---
Author Organization [facility] Address [address] [place] [address]. [place] [address] Care Team Providers Care Photographic Lithographer Name Role Phone Simon Claros MD Primary Care Provider Unavail able Simon Claros MD Unavailable Unavailable Deidra Whitehead DPM, Podiatry /Foot and Ankle Surgery Unavailable Jodrin Allred DPM Unavailable [phone] Chan Olivarez MD Unavailable [phone] Simon Claros MD Unavailable Unavailable Chan Olivarez MD Unavailable Chan Duke MD Primary Care Provider Chan Duke MD Unavailable [phone] Aaron Garcia MD Unavailable Yris Perez MD Unavailable Jordin AllredM Unavailable [phone] Guillermo Rojas APRN ROLL MACHINE OPERATOR Unavailable Chan Olivarez MD Unavailable [phone] Clinic - [facility] Unavail able Reason for Visit * Reason Comments Medication Refill Encounter Details Date Type Department Care Team (Late st Contact Info) Description 08/08/[address], [address] [place] [address] Simon Claros MD Medication Refill Social History [...] Sexual Orientation Straight 09/29/2021 10 :51 AM 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 RUNNER documented as of this encounter Plan of Treatment Not on file documented as of this encounter Visit Diagnoses Diagnosis Acute idiopathic gout of left foot documented in this encounter Additional Health Concerns Infection Onset Date Last Indicated Resolved Time ESBL Comment: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/05/17, 06/08/17, 08/26/17 01/08/2017 08/29/2019 documented as of this encounter Care Teams Photographic Lithographer Relationship Specialty Start Date End Date Simon Claros MD PCP - General Internal Medicine 09/22/12 04/14/21 Chan Duke MD [address] [facility] [address] [place] [address] PCP - General Internal Medicine 08/21/21 12/15/22 Simon Claros MD Assigned PCP 06/18/16 03/01/21 Deidra Whitehead DPM, Podiatry/Foot and Ankle Surgery [id number] [place] [address] [address] [place] [address] Assigned Musculoskeletal Provider 09/06/20 10/26/20 Jordin Allred DPM [address] [facility] [address] [place] [address] Assigned Musculoskeletal Provider 03/02/21 12/18/22 Chan Olivarez MD [address] [place] [phone] Assigned PCP 03/02/21 04/09/21 Simon Claros MD Assigned PCP 04/10/21 05/31/21 Chan Olivarez MD [address] [place] [address] [phone] Assigned PCP 06/01/21 08/23/21 [place] [address] [place] [address] Assigned PCP 08/24/21 12/18/22 Aaron Garcia MD [address] [place] [phone] Assigned Cancer Care Provider 10/12/21 05/15/22 Yris Perez MD [address] [place] [address] [address] [place] [address] Assigned Cancer Care Provider 05/16/22 11/05/23 Jordin Allred DPM [address] [facility] [address] [place] [address] Assigned Surgical Provider 12/19/22 Guillermo Rojas APRN ROLL MACHINE OPERATOR [address] [place] [address] Assigned PCP 12/19/22 02/19/23 Chan Olivarez MD [address] [place] [address] [phone] Assigned PCP 02/20/23 03/06/24 [facility] - [address] [address] Assigned PCP 03/07/24 documented as of this encounter
--- OUTSIDE RECORDS SUMMARY | 2024-07-25 08:39 | XMS_ITS | Encounter Summary ---
Author Organization [facility] Address [address] [place] [address]. [place] [address] Care Team Providers Care Medical Transcription Radiology Name Role Phone Simon Claros MD Primary Care Provider Unavail able Simon Claros MD Unavailable Unavailable Deidra Whitehead DPM, Podiatry /Foot and Ankle Surgery Unavailable Jordin Allred DPM Unavailable [phone] Chan Olivarez MD Unavailable [phone] Simon Claros MD Unavailable Unavailable Chan Olivarez MD Unavailable [phone] Chan Duke MD Primary Care Provider Chan Duke MD Unavailable [phone] Aaron Garcia MD Unavailable Yris Perez MD Unavailable [phone] Jordin AllredM Unavailable [phone] Guillermo Rojas APRN FORESTRY CONTRACTOR Unavailable [phone] Chan Olivarez MD Unavailable [phone] Clinic - [facility] Unavail able Reason for Visit * Reason Onset Date Comments Call Back 08/22/2020 feeling worse Encounter Details Date Type Department Care Team (Late st Contact Info) Description 08/22/[address], [address] [place] [address] Simon Claros MD Call Back (feeling worse) [...] Sexual Orientation Straight 09/29/2021 10 :51 AM BANQUET BARTENDER COVID-19 Exposure Response Date Recorded In the [...] be reached at: Home number on file [phone] (home) Best Time: Today Can we leave [...] as of this encounter Care Teams Medical Transcription Radiology Relationship Specialty Start Date End Date Simon Claros MD PCP - General Internal Medicine 09/22/12 04/14/21 Chan Duke MD [address] [facility] [address] [place] [address] PCP - General Internal Medicine 08/21/21 12/15/22 Simon Claros MD Assigned PCP 06/18/16 03/01/21 Deidra Whitehead DPM, Podiatry/Foot and Ankle Surgery [address] [facility] [address] [place] [address] Assigned Musculoskeletal Provider 09/06/20 10/26/20 Jordin Allred DPM [address] [facility] [address] [place] [address] Assigned Musculoskeletal Provider 03/02/21 12/18/22 Chan Olivarez MD [address] [place] [phone] Assigned PCP 03/02/21 04/09/21 Simon Claros MD Assigned PCP 04/10/21 05/31/21 Chan Olivarez MD [address] [place] [phone] Assigned PCP 06/01/21 08/23/21 [place] [address] [facility] [place] [address] Assigned PCP 08/24/21 12/18/22 Aaron Garcia MD [address] [place] [address] Assigned Cancer Care Provider 10/12/21 05/15/22 Yris Perez MD [address] [facility] [address] [place], [place] [address] Assigned Cancer Care Provider 05/16/22 11/05/23 Jordin Allred DPM [address] [facility] [address] [place] [address] Assigned Surgical Provider 12/19/22 Guillermo Rojas APRN CNP [address] [place], [place] [phone] Assigned PCP 12/19/22 02/19/23 Chan Olivarez MD [address] [phone] Assigned PCP 02/20/23 03/06/24 [facility] [address] [place], [place] [phone] Assigned PCP 03/07/24 documented as of this encounter
--- OUTSIDE RECORDS SUMMARY | 2024-07-25 08:39 | XMS_ITS | Encounter Summary ---
Author Organization [place] Address [facility] [place] [address] Care Team Providers Care Deep Submergence Vehicle Operator Name Role Phone Jordin Allred DPM Unavailable [phone] Chan Duke MD Primary Care Provider Chan Duke MD Unavailable Yris Perez MD Unavailable Jordin Allred DPM Unavailable Guillermo Rojas APRN CASE MONITOR Unavailable [phone] Chan Olivarez MD Unavailable [phone] [facility] Unavail able Encounter Details Date Type Department Care Team (Late st Contact Info) Description 08/17/2022 MyC Medical Advice [facility] [place] [facility] [address] [place] [address] Guillemro Rojas APRN CASE MONITOR [address] [place], [place] [phone] Social History Tobacco Use Types Packs/Day Years [...] Sexual Orientation Straight 09/29/2021 10 :51 AM 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 COVID-19 Exposure Response Date Recorded In the [...] documented as of this encounter Care Teams Deep Submergence Vehicle Operator Relationship Specialty Start Date End Date Chan Duke MD [address] [facility] [address] [place] [address] PCP - General Internal Medicine 08/21/21 12/15/22 [place] [address] [email or web address] [facility] [address] [place] [address] Assigned Musculoskeletal Provider 03/02/21 12/18/22 [place] [address] [facility] [place] [address] Assigned PCP 08/24/21 12/18/22 Yris Perez MD [address] [facility] 286 [place] [address] Assigned Cancer Care Provider 05/16/22 11/05/23 [place] [email or web address] [place] [address] Assigned Surgical Provider 12/19/22 Guillermo Rojas APRN [facility] [address] [place] [address] Assigned PCP 12/19/22 02/19/23 Chan Olivarez MD [address] [place] [phone] Assigned PCP 02/20/23 03/06/24 [facility] [address] [place] [address] Assigned PCP 03/07/24 documented as of this encounter
--- OUTSIDE RECORDS SUMMARY | 2024-07-25 08:39 | XMS_ITS | Clinical Summary ---
Author Organization [place] Address [address] [facility] [place] [address] Care Team Providers Care Visual Merchandising Specialist Name Role Phone Clinic - [facility] Unavail able Allergies Active Allergy Reactions Criticality Noted Date Comments Birch Trees Unknown Medium 01/29/2022 Chlorhexidine Rash Low 03/10/2016 Latex Rash Low 05/27/2012 Other reaction(s): Other, see comments PN: sneezing, runny nose, [place] Trees Unknown Medium 01/29/2022 No Clinical Screening [...] Administration Dates Next Due Flu, Unspecified 11/23/2002 [id number] Novel Flu 11/19/2009 HepA-Peds, Unspecified 07/14/2000 HepB, [...] Sexual Orientation Straight 09/29/2021 10 :51 AM SYSTEMS TESTER Last Filed Vital Signs Vital Sign Reading Time Taken Comments Blood Pressure 177/85 10/11/2022 11:00 AM SYSTEMS TESTER Pulse 80 10/11/2022 11:00 AM SYSTEMS TESTER Temperature 36.8 ??C (98.3 ??F) 10/11/2022 5:28 AM CS T Respiratory Rate 16 10/11/2022 5:28 AM SYSTEMS TESTER Oxygen Saturation 96% 10/11/2022 11:00 AM SYSTEMS TESTER Inhaled Oxygen Concentration - - Weight 66.2 kg (146 lb) 08/14/2022 2:02 PM CDT Height 167.6 cm (5' 6) 08/14/2022 2:02 PM CDT Body Mass Index 23.57 08/14/2022 2:02 PM CDT Plan of Treatment Health Maintenance Due Date Last Done Comments ANNUAL REVIEW OF HM ORDERS 1945 COPD ACTION PLAN 1945 HEPATITIS C SCREENING 1965 RSV VACCINE (1 - 1-dose 60+ series) 2007 LIPID 08/05/2022 08/05/2021, 05/15, 01/30/2019, Additional history exists FALL RISK ASSESSMENT 01/29/2023 01/29/2022, 08/05/2021, 01/13/2021, Additional history exists MEDICARE ANNUAL WELLNESS VISIT 01/29/2023 01/29/2022, 05/29/2020, 01/30/2019, Additional history exists MAMMO SCREENING 04/17/2023 04/17/2022, 03/15, 03/22/2020, Additional history exists PHQ-2 (once per calendar year) 2023 08/14/2022, 01/29/2022, 08/05/2021, Additional history exists COVID-19 Vaccine ( season) 2024 01/24/2021 INFLUENZA VACCINE (#1) 2024 (Declined), 12/01/2016, 11/19/2009, Additional history exists GLUCOSE 10/11/2025 10/11/2022, 04/16, 08/05/2021, Additional history exists ADVANCE CARE PLANNING 01/30/2027 01/30/2022 , 06/22/2020, 06/02/2016, Additional history exists DTAP/TDAP/TD IMMUNIZATION (3 - Td or Tdap) 01/30/2029 01/30/2019, 02/11/2009, 07/14/2000, Additional history exists DEXA 12/22/2036 12/22/2021, 02/0 05/2022, 04/19/2020, Additional history exists MENINGITIS IMMUNIZATION Aged Out 02/11/2009, 08/16 No longer eligible based on patient's age to complete this topic Pneumococcal Vaccine: 65+ Years Completed 12/31/2015, 12/16/2015, 09/22/2012, Additional history exists SPIROMETRY Completed 01/30/2019, 01/13, 01/05/2017, Additional history exists COLONOSCOPY Discontinued 08/15/2021, 11/2020, 06/03/2017, Additional history exists COLORECTAL CANCER SCREENING Discontinued ZOSTER IMMUNIZATION Completed 05/23/2022, CT COLONOGRAPHY Discontinued FIT Discontinued FLEX SIG Discontinued HPV IMMUNIZATION Aged Out No longer e ligible based on patient's age to complete this topic RSV MONOCLONAL ANTIBODY Aged Out No l onger eligible based on patient's age to complete this topic sDNA (Cologuard) Discontinued Medical Devices Implanted Type Area Icu Rn Device Identifier Shelf Expiration Date Model / Serial / Lot Imp Cup Tay [place] 56mm 1217-22-056 Implanted:Qty: 1 on 03/10/2016 by Wayne Estevez MD at [facility] Right: Hip [employer] 01/12/2026 [id number] / / [id number] Imp [place] Hole Eliminator Hip Depuy Duraloc 1246-03-000 Implanted:Qty: 1 on 03/10/2016 by Wayne Estveez MD at [facility] Right: Hip [employer] 09/14/2025 [id number] / / [id number] Imp Scr Bone Can Tay 6.5x20mm 1217-20-500 Implanted:Qty: 1 on 03/10/2016 by Wayne Estevez MD at [facility] Right: Hip [employer] 09/14/2025 [id number] / / [id number] Imp Scr Bone Can Tay 6.5x40mm 1217-40-500 Implanted:Qty: 1 on 03/10/2016 by Wayne Estevez MD at [facility] Right: Hip [employer] 12/15/2025 [id number] / / [id number] Imp Scr Depuy [place] Canc 6.5x15mm 1217-15-500 Implanted:Qty: 1 on 03/10/2016 by Wayne Estevez MD at [facility] Right: Hip [employer] 08/14/2025 [id number] / / [id number] [place] Altrx Polyethylene Acetabular Liner +4 Neutral 36mm Id 56mm Od Implanted:Qty: 1 on 03/10/2016 by Wayne Estevez MD at [facility] Right: Hip Depuy 01/12/2021 [id number] / / [id number] Tri-Lock Bps Femoral Stem 10/28 Taper Tri-Lock Bps Gription Size 2 Std 99mm Implanted:Qty: 1 on 03/10/2016 by Wayne Estevez MD at [facility] Right: Hip Depuy 01/12/2026 [id number] / / [id number] Biolox Delta Ceramic Femoral Head +5.0 36mm Cristina 10/28 Taper Implanted:Qty: 1 on 03/10/2016 by Wayne Estevez MD at [facility] Right: Hip Depuy 09/14/2020 [id number] / / [id number] Procedures Procedure Name Priority Date/Time Associated Diagnosis Comments COMPREHENSIVE METABOLIC PANEL STAT 10/11/2022 5:38 AM SYSTEMS TESTER MA SCREENING BILATERAL W/ RICARDO Routine 04/17/2022 10:50 AM CDT Visit for screening mammogram DX HIP/PELVIS/SPINE W LAT FRACTION ANALYSIS Routine 12/22/2021 3:09 PM SYSTEMS TESTER Aromatase inhibitor use COLONOSCOPY - HIM SCAN 12:00 AM CDT LIPID REFLEX TO DIRECT LDL PANEL Routine 08/05/2021 9:07 AM CDT Encounter for preventive health examination HC SPIROMETRY, BREATH CAPACITY Routine 01/30/2019 10:11 AM CDT Chronic obstructive pulmonary disease, unspecified COPD type (H) from Last 3 Months or Most Recently Relevant to Health Maintenance Results * (ABNORMAL) Comprehensive metabolic panel (10/11/2022 5:38 AM SYSTEMS TESTER) Sodium 131(L) 136 - 145 mmol/L 10/11/2022 6:48 AM [facility] Potassium >10.0(HH) 3.4 - 5.3 mmol/L 10/11/2022 6:48 AM [facility] Chloride 101 98 - 107 mmol/L 10/11/2022 6:48 AM [facility] Carbon Dioxide (CO2) 27 22 - 29 mmol/L 10/11/2022 6:48 AM [facility] Anion Gap 3(L) 7 - 15 mmol/L 10/11/2022 6:48 AM [facility] Urea Nitrogen 15.9 8.0 - 23.0 mg/dL 10/11/2022 6:48 AM [facility] Creatinine 0.85 0.51 - 0.95 mg/dL 10/11/2022 6:48 AM [facility] Calcium 8.9 8.8 - 10.2 mg/dL 10/11/2022 6:48 AM [facility] Glucose 112(H) 70 - 99 mg/dL 10/11/2022 6:48 AM [facility] Alkaline Phosphatase 74 35 - 104 U/L 10/11/2022 6:48 AM [facility] AST 125(H) 10 - 35 U/L 10/11/2022 6:48 AM [facility] Comment:Specimen is hemolyze d which can falsely elevate AST. Analysis of a non-hemolyzed specimen may result in a lower value. ALT <5(L) 10 - 35 U/L 10/11/2022 6:48 AM [facility] Protein Total 7.4 6.4 - 8.3 g/dL 10/11/2022 6:48 AM [facility] Albumin 4.0 3.5 - 5.2 g/dL 10/11/2022 6:48 AM [facility] Bilirubin Total 0.5 <=1.2 mg/dL 10/11/2022 6:48 AM [facility] GFR Estimate 71 >60 mL/min/1. 73m2 10/11/2022 6:48 AM [facility] Comment:Effective October 162020 eGFRcr in adults is calculated using the 2020 CKD-EPI creatinine equation which includes age and gender (Ji et al., NEJM, DOI: 10.1056/XRCDsh9038065) Blood BLOOD SPECIMEN / Unknown Venipuncture / Unknown 10/11/2022 5:38 AM SYSTEMS TESTER 10/11/2022 5:56 AM SYSTEMS TESTER Andres Kelly MD LAB - BLOOD ORDERABL ES [facility] [address] [facility] Lab (1st floor, no room number) [place] [address], [facility] [phone] * MA Screen Bilateral w/Ricardo (04/17/2022 10:50 [...] w Lat Fraction Anna (12/22/2021 3:09 PM SYSTEMS TESTER) Anatomical Region Laterality Modality Dexa Bone Mineral Den sity Narrative 12/23/2021 12:03 PM SYSTEMS TESTER BONE DENSITOMETRY [address] [address] 12/22/2021 ?? PATIENT: Darshana Brooks CHART: [id number] : ??1945 AGE: ??76 year old SEX: ??female REFERRING PROVIDER: ??Aaron Garcia MD ?? PROCEDURE: ??Bone density scanning was performed using DXA technology of the lumbar spine and hip. ??Scanning was performed on a Gewara scanner. ??Reporting is completed in the form [...] to another DXA performed on the same Gewara ?? machine on 02/28/2018. ?? LATERAL VERTEBRAL ASSESSMENT Procedure: ??Vertebral fracture assessment was performed in the lateral decubitus position using a Fed PlaybookigHealarium ??densitometer. Indications for VFA: T-score of -1.0 [...] Duke MD LAB - BLOOD ORDERABL ES LABORATORY [facility] [address] Lab (no room number, 1st floor of clinic) [place] [address], [facility] [phone] * Spirometry, Breathing Capacity: Normal Order, Clinic Performed (01/30/2019 10:11 AM CDT) FEV-1 FVC FEV1/FVC FEF 25/75 Simon Claros MD PROCEDURES from Last 3 Months or Most Recently Relevant to Health Maintenance Additional Health Concerns Infection Onset Date Last Indicated ESBL Comment:ESBL ecoli urine 2/21/17, 06/08/17, 08/26/17 01/08/2017 Advance Directives For more information, please contact: [phone] Documents on File Type Date Recorded Patient Bowling Floor Desk Clerk Expl anation Advance Directives and Living Will 03/10/2016 7:35 PM Health Care Directiv e 02/26/16 * Full Code (Latest Code Status on File) Date Activated Date Inactivated Comments 03/11/2016 1:43 PM 08/22/2020 3:28 PM * Full Code Date Activated Date Inactivated Comments 03/10/2016 3:43 PM 03/11/2016 1:43 PM Care Teams Visual Merchandising Specialist Relationship Specialty Start Date End Date Clinic - [facility] [address] [place] [address] Assigned PCP 03/07/24
--- OUTSIDE RECORDS SUMMARY | 2024-07-25 08:39 | XMS_ITS | Encounter Summary ---
Author Organization [facility] Address [address] [place] [address]. [place] [address] Care Team Providers Care Painter Apprentice Name Role Phone Simon Claros MD Primary Care Provider Unavail able Simon Claros MD Unavailable Unavailable Deidra Whitehead DPM, Podiatry /Foot and Ankle Surgery Unavailable Jordin Allred DPM Unavailable [phone] Chan Olivarez MD Unavailable [phone] Simon Claros MD Unavailable Unavailable Chan Olivarez MD Unavailable [phone] Chan Duke MD Primary Care Provider [phone] Chan Duke MD Unavailable Aaron Garcia MD Unavailable Yris Perez MD Unavailable Jordin AllredM Unavailable Guillermo Rojas APRN SHOT CORE DRILL OPERATOR Unavailable Chan Olivarez MD Unavailable [phone] Clinic - [facility] Unavail able Reason for Visit * Reason Comments Medication Refill Encounter Details Date Type Department Care Team (Late st Contact Info) Description 05/08/[address], [address] [place] [address] Simon Claros MD Medication Refill Social History [...] Sexual Orientation Straight 09/29/2021 10 :51 AM 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 documented as of this encounter Plan of Treatment Not on file documented as of this encounter Visit Diagnoses Diagnosis Acute idiopathic gout of left foot documented in this encounter Additional Health Concerns Infection Onset Date Last Indicated Resolved Time ESBL Comment: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/05/17, 06/08/17, 08/26/17 01/08/2017 08/29/2019 documented as of this encounter Care Teams Painter Apprentice Relationship Specialty Start Date End Date Simon Claros MD PCP - General Internal Medicine 09/22/12 04/14/21 Chan Duke MD [address] [facility] [address] [place] [address] PCP - General Internal Medicine 08/21/21 12/15/22 Simon Claros MD Assigned PCP 06/18/16 03/01/21 Deidra Whitehead DPM, Podiatry/Foot and Ankle Surgery [id number] [place] [address] [address] [place] [address] Assigned Musculoskeletal Provider 09/06/20 10/26/20 Jordin Allred DPM [address] [facility] [address] [place] [address] Assigned Musculoskeletal Provider 03/02/21 12/18/22 Chan Olivarez MD [address] [place] [address] [phone] Assigned PCP 03/02/21 04/09/21 Simon Claros MD Assigned PCP 04/10/21 05/31/21 Chan Olivarez MD [address] [place] [address] [phone] Assigned PCP 06/01/21 08/23/21 [place] [address] [place] [address] Assigned PCP 08/24/21 12/18/22 Aaron Garcia MD [address] [place] [address] [id number] Assigned Cancer Care Provider 10/12/21 05/15/22 Yris Perez MD [address] [place] [address] [address] [place] [address] Assigned Cancer Care Provider 05/16/22 11/05/23 Jordin Allred DPM [address] [facility] [address] [place] [address] Assigned Surgical Provider 12/19/22 Guillermo Rojas APRN SHOT CORE DRILL OPERATOR [address] [place] [address] Assigned PCP 12/19/22 02/19/23 Chan Olivarez MD [address] [place] [address] [phone] Assigned PCP 02/20/23 03/06/24 [facility] - [address] [address] Assigned PCP 03/07/24 documented as of this encounter
--- OUTSIDE RECORDS SUMMARY | 2024-07-25 08:39 | XMS_ITS | Encounter Summary ---
Author Organization [place] Address [facility] [place] [address] Care Team Providers Care Sodium Chlorite Operator Name Role Phone Jordin Allred DPM Unavailable [phone] Chan Duke MD Primary Care Provider Chan Duke MD Unavailable [phone] Yris Perez MD Unavailable [phone] Jordin Allred DPM Unavailable [phone] Guillermo Rojas APRN MACHINE REPAIRER MAINTENANCE Unavailable [phone] Chan Olivarez MD Unavailable [phone] Clinic - [facility] Unavail able Encounter Details Date Type Department Care Team (Late st Contact Info) Description 07/24/2022 [facility] Virtual Care [address] [place] [phone] [facility] Social History Tobacco Use Types Packs/Day Years [...] Sexual Orientation Straight 09/29/2021 10 :51 AM AN/SYQ 13 NAV/C2 OPERATOR COVID-19 Exposure Response Date Recorded In [...] documented as of this encounter Care Teams Sodium Chlorite Operator Relationship Specialty Start Date End Date Chan Duke MD [address] [address] PCP - General Internal Medicine 08/21/21 12/15/22 Jordin Allred DPM [address] [facility] [address] [place], [place] [address] Assigned Musculoskeletal Provider 03/02/21 12/18/22 [place] [address] [facility] [place] 187306 Assigned PCP 08/24/21 12/18/22 Yris Perez MD [address] [address] Assigned Cancer Care Provider 05/16/22 11/05/23 Jordin Allred DPM [address] [employer] [address] [place], [place] [address] Assigned Surgical Provider 12/19/22 Guillermo Rojas APRN MACHINE REPAIRER MAINTENANCE [address] [place] [address] Assigned PCP 12/19/22 02/19/23 Chan Olivarez MD [address] [place] [phone] Assigned PCP 02/20/23 03/06/[address] [address] Assigned PCP 03/07/24 documented as of this encounter
--- OUTSIDE RECORDS SUMMARY | 2024-07-25 08:39 | XMS_ITS ---
Author Organization [place] Address [address] [facility] [place] [address] Care Team Providers Care Thread Roller Name Role Phone [facility] Unavail able Active Problems Problem Noted Date Diagnosed Date [...] treatments are documented for this patient in [facility]. Treatments may have been administered in another system. Treatment Summaries Malignant neoplasm of female breast, unspecified estrogen receptor status, unspecified laterality, unspecified site of breast (H)* Cancer Treatment Plan and Summary - Breast Provided by [facility] Information Patient Name Darshana Brooks Patient 1945 Patient phone [phone] (home) NONE (work) Email [email or web address] Care Team Primary Care Provider Simon Claros Michael Robert, MD Radiation Oncologist Medical Oncologist Following with [facility] Other Providers Cancer Diagnosis Information Diagnosis Malignant neoplasm of female breast, unspecified estrogen receptor status, unspecified laterality, unspecified site of breast (H) Diagnosis Date 02/09/2017 Staging Information Stage IA ([id number]) Estrogen Positive 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 Possible late and/or longterm effects that someone with this type of cancer and treatment may experience: bone effects heart effects fertility effects memory and concentration pain lymphedema nervous system changes If you would like to discuss specific late and/or longterm effects related to your treatment, please use the following website to make an appointment in the Cancer Survivor Program: [email or web address].org/c are/overarching-care/zotyzh-hfhs-whllc/support-services OR call These symptoms should be brought [...] (loss/gain) Resources you may be interested in: [employer] Society www.cancer.org [employer] Society of Clinical Oncology www.asco.org/practice-guidelines/resources-patients National Cancer [place] www.cancer.gov [employer] www.livestrong.org [facility] www.mhealth.org/care/overarching-care/amidbm-dqvn-zvvvz/support-services www.cancer.net [place] for Cancer Research www.aicr.org This Survivorship Care Plan is a cancer treatment summary and follow up plan and is provided to youto keep with your health care records and to share with your primary care provider or any of your other providers.
--- OUTSIDE RECORDS SUMMARY | 2024-07-25 08:39 | XMS_ITS | Encounter Summary ---
Author Organization [place] Address [facility] [place] [address] Care Team Providers Care Nurse Practitioner Per Diem Name Role Phone Jordin Allred DPM Unavailable [phone] Chan Duke MD Primary Care Provider [phone] Chan Duke MD Unavailable [phone] Yris Perez MD Unavailable Jordin Allred DPM Unavailable [phone] Guillermo Rojas APRN CONTAINER FINISHER Unavailable Chan Olivarez MD Unavailable [phone] [facility] Unavail able Encounter Details Date Type Department Care Team (Late st Contact Info) Description 08/17/2022 [facility] [address] [place] [address] Guillermo Rojas APRN CONTAINER FINISHER [address] [place], [place] [phone] Social History Tobacco Use Types Packs/Day Years [...] Sexual Orientation Straight 09/29/2021 10 :51 AM 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 COVID-19 Exposure Response Date Recorded In the [...] documented as of this encounter Care Teams Nurse Practitioner Per Diem Relationship Specialty Start Date End Date Chan Duke MD [address] [facility] [address] [place] [address] PCP - General Internal Medicine 08/21/21 12/15/22 Jordin Allred DPM [address] [employer] [facility] [address] [place] [address] Assigned Musculoskeletal Provider 03/02/21 12/18/22 [place] [address] [facility] [place] [address] Assigned PCP 08/24/21 12/18/22 Yris Perez MD [address] [facility] [address] [place] [address] Assigned Cancer Care Provider 05/16/22 11/05/23 Jordin Allred DPM [address] [place] [address] Assigned Surgical Provider 12/19/22 Guillermo Rojas APRN [facility] [address] [place] [address] Assigned PCP 12/19/22 02/19/23 Chan Olivarez MD [address] [place] [phone] Assigned PCP 02/20/23 03/06/24 [facility] [address] [place] [address] Assigned PCP 03/07/24 documented as of this encounter
== END 2024-07-20 13:01 | disposition home or self-care (01) ==
LOC: NFLDREF 07-25 08:36
PROVIDERS: PCP Internal Medicine; Referring Provider Internal Medicine; Visit Provider Registered Nurse
DX: N30.01 Acute cystitis with hematuria (principal); B96.4 Proteus (mirabilis) (morganii) as the cause of diseases classified elsewhere
CPT/HCPCS: 87086; 87186

== ENCOUNTER 2024-08-03 09:04 | Outpatient (CLI) | payer MEDICARE, SELFPAY ==
--- OUTSIDE RECORDS SUMMARY | 2024-08-04 08:40 | XMS_ITS | Clinical Summary ---
Author Organization [place] Address [address] [facility] [place] [address] Care Team Providers Care Title Searcher Name Role Phone Clinic - [facility] Unavail able Allergies Active Allergy Reactions Criticality Noted Date Comments Birch Trees Unknown Medium 01/29/2022 Chlorhexidine Rash Low 03/10/2016 Latex Rash Low 05/27/2012 Other reaction(s): Other, see comments PN: sneezing, runny nose, [place] Trees Unknown Medium 01/29/2022 No Clinical Screening [...] ronic obstructive pulmonary disease, unspecified COPD type INHALE 2 PUFFS 4 TIMES A DAY [...] Administration Dates Next Due Flu, Unspecified 11/23/2002 [id number] Novel Flu 11/19/2009 HepA-Peds, Unspecified 07/14/2000 HepB, [...] Sexual Orientation Straight 09/29/2021 10 :51 AM DENTAL HYGIENE INSTRUCTOR Last Filed Vital Signs Vital Sign Reading Time Taken Comments Blood Pressure 177/85 10/11/2022 11:00 AM DENTAL HYGIENE INSTRUCTOR Pulse 80 10/11/2022 11:00 AM DENTAL HYGIENE INSTRUCTOR Temperature 36.8 ??C (98.3 ??F) 10/11/2022 5:28 AM CS T Respiratory Rate 16 10/11/2022 5:28 AM DENTAL HYGIENE INSTRUCTOR Oxygen Saturation 96% 10/11/2022 11:00 AM DENTAL HYGIENE INSTRUCTOR Inhaled Oxygen Concentration - - Weight 66.2 kg (146 lb) 08/14/2022 2:02 PM CDT Height 167.6 cm (5' 6) 08/14/2022 2:02 PM CDT Body Mass Index 23.57 08/14/2022 2:02 PM CDT Plan of Treatment Health Maintenance Due Date Last Done Comments ANNUAL REVIEW OF HM ORDERS 1945 COPD ACTION PLAN 1945 HEPATITIS C SCREENING 1965 LIPID 08/05/2022 08/05/2021, 05/15, 01/30/2019, Additional history exists RSV VACCINE (1 - 1-dose 75+ series) 2022 FALL RISK ASSESSMENT 01/29/2023 01/29/2022, 08/05/2021, 01/13/2021, Additional history exists MEDICARE ANNUAL WELLNESS VISIT 01/29/2023 01/29/2022, 05/29/2020, 01/30/2019, Additional history exists BMP 10/11/2023 10/11/2022, 04/16, 08/05/2021, Additional history exists PHQ-2 (once per calendar year) 2023 08/14/2022, 01/29/2022, 08/05/2021, Additional history exists COVID-19 Vaccine ( season) 2024 01/24/2021 INFLUENZA VACCINE (#1) 2024 (Declined), 12/01/2016, 11/19/2009, Additional history exists GLUCOSE 10/11/2025 10/11/2022, 2 01/2022, 08/05/2021, Additional history exists ADVANCE CARE PLANNING [...] (Cologuard) Discontinued Medical Devices Implanted Type Area Social Worker Delinquency Prevention Device Identifier Shelf Expiration Date Model / Serial / Lot Imp Cup Tay [place] 56mm 1217-22-056 Implanted:Qty: 1 on 03/10/2016 by Wayne Estevez MD at [facility] Right: Hip [employer] 01/12/2026 [id number] / / [id number] Imp [place] Hole Eliminator Hip Depuy Duraloc 1246-03-000 Implanted:Qty: 1 on 03/10/2016 by Wayne Estevez MD at [facility] Right: Hip [employer] 09/14/2025 [id number] / / [id number] Imp Scr Bone Can Tay 6.5x20mm 1217-20-500 Implanted:Qty: 1 on 03/10/2016 by Wayne Estevez MD at [facility] Right: Hip [employer] 09/14/2025 [id number] / / [id number] Imp Scr Bone Can Tay 6.5x40mm 1217-40-500 Implanted:Qty: 1 on 03/10/2016 by Wayne Estevez MD at [facility] Right: Hip [employer] 12/15/2025 [id number] / / [id number] Imp Scr Depuy [place] Canc 6.5x15mm 1217-15-500 Implanted:Qty: 1 on 03/10/2016 by Wayne Estevez MD at [facility] Right: Hip [employer] 08/14/2025 [id number] / / [id number] [place] Altrx Polyethylene Acetabular Liner +4 Neutral 36mm Id 56mm Od Implanted:Qty: 1 on 03/10/2016 by Wayne Estevez MD at [facility] Right: Hip Depuy 01/12/2021 1221-36-456 / / [id number] Tri-Lock Bps Femoral Stem 10/28 Taper Tri-Lock Bps Gription Size 2 Std 99mm Implanted:Qty: 1 on 03/10/2016 by Wayne Estevez MD at [facility] Right: Hip Depuy 01/12/2026 1012-04-020 / / [id number] Biolox Delta Ceramic Femoral Head +5.0 36mm Cristina 10/28 Taper Implanted:Qty: 1 on 03/10/2016 by Wayne Estevez MD at [facility] Right: Hip Depuy 09/14/2020 1365-36-320 / / [id number] Procedures Procedure Name Priority Date/Time Associated Diagnosis Comments COMPREHENSIVE METABOLIC PANEL STAT 10/11/2022 5:38 AM DENTAL HYGIENE INSTRUCTOR MA SCREENING BILATERAL W/ RICARDO Routine 04/17/2022 10:50 AM CDT Visit for screening mammogram DX HIP/PELVIS/SPINE W LAT FRACTION ANALYSIS Routine 12/22/2021 3:09 PM DENTAL HYGIENE INSTRUCTOR Aromatase inhibitor use COLONOSCOPY - HIM SCAN 12:00 AM CDT LIPID REFLEX TO DIRECT LDL PANEL Routine 08/05/2021 9:07 AM CDT Encounter for preventive health examination HC SPIROMETRY, BREATH CAPACITY Routine 01/30/2019 10:11 AM CDT Chronic obstructive pulmonary disease, unspecified COPD type (H) from Last 3 Months or Most Recently Relevant to Health Maintenance Results * (ABNORMAL) Comprehensive metabolic panel (10/11/2022 5:38 AM DENTAL HYGIENE INSTRUCTOR) Sodium 131(L) 136 - 145 mmol/L 10/11/2022 6:48 AM [facility] Potassium >10.0(HH) 3.4 - 5.3 mmol/L 10/11/2022 6:48 AM [facility] Chloride 101 98 - 107 mmol/L 10/11/2022 6:48 AM [facility] Carbon Dioxide (CO2) 27 22 - 29 mmol/L 10/11/2022 6:48 AM [facility] Anion Gap 3(L) 7 - 15 mmol/L 10/11/2022 6:48 AM [facility] Urea Nitrogen 15.9 8.0 - 23.0 mg/dL 10/11/2022 6:48 AM [facility] Creatinine 0.85 0.51 - 0.95 mg/dL 10/11/2022 6:48 AM [facility] Calcium 8.9 8.8 - 10.2 mg/dL 10/11/2022 6:48 AM [facility] Glucose 112(H) 70 - 99 mg/dL 10/11/2022 6:48 AM [facility] Alkaline Phosphatase 74 35 - 104 U/L 10/11/2022 6:48 AM [facility] AST 125(H) 10 - 35 U/L 10/11/2022 6:48 AM [facility] Comment:Specimen is hemolyze d which can falsely elevate AST. Analysis of a non-hemolyzed specimen may result in a lower value. ALT <5(L) 10 - 35 U/L 10/11/2022 6:48 AM [facility] Protein Total 7.4 6.4 - 8.3 g/dL 10/11/2022 6:48 AM [facility] Albumin 4.0 3.5 - 5.2 g/dL 10/11/2022 6:48 AM [facility] Bilirubin Total 0.5 <=1.2 mg/dL 10/11/2022 6:48 AM [facility] GFR Estimate 71 >60 mL/min/1. 73m2 10/11/2022 6:48 AM [facility] Comment:Effective October 162020 eGFRcr in adults is calculated using the 2020 CKD-EPI creatinine equation which includes age and gender (Farm Field Manager et al., NEJ, DOI: 10.1056/EVACha2728073) Blood BLOOD SPECIMEN / Unknown Venipuncture / Unknown 10/11/2022 5:38 AM DENTAL HYGIENE INSTRUCTOR 10/11/2022 5:56 AM DENTAL HYGIENE INSTRUCTOR Andres Kelly MD LAB - BLOOD ORDERABL ES [facility] Lab [address] [facility] Lab (1st floor, no room number) [place] [address], [facility] [phone] * MA Screen Bilateral w/Ricardo (04/17/2022 10:50 [...] w Lat Fraction Anna (12/22/2021 3:09 PM DENTAL HYGIENE INSTRUCTOR) Anatomical Region Laterality Modality Dexa Bone Mineral Den sity Narrative 12/23/2021 12:03 PM DENTAL HYGIENE INSTRUCTOR BONE DENSITOMETRY [address] [address] 12/22/2021 ?? PATIENT: Darshana Marina Cecilia CHART: [id number] : ??1945 AGE: ??76 year old SEX: ??female REFERRING PROVIDER: ??Aaron Garcia MD ?? PROCEDURE: ??Bone density scanning was performed using DXA technology of the lumbar spine and hip. ??Scanning was performed on a zumatek scanner. ??Reporting is completed in the form [...] to another DXA performed on the same zumatek ?? machine on 02/28/2018. ?? LATERAL VERTEBRAL ASSESSMENT Procedure: ??Vertebral fracture assessment was performed in the lateral decubitus position using a [employer] ??densitometer. Indications for VFA: T-score of -1.0 or worse and age (female>69) Confounding factors for VFA: None. ??The LVA scan is interpretable from T8 to L4. VFA Findings: Using the semi-quantitative analysis of Adrián there was evidence of no spinal deformity VFA Impression: Darshana rBooks has no vertebral fractures identified on the [...] Duke MD LAB - BLOOD ORDERABL ES [facility] [address] Lab (no room number, 1st floor of clinic) [place] [address], [facility] [phone] * Spirometry, Breathing Capacity: Normal Order, Clinic Performed (01/30/2019 10:11 AM CDT) FEV-1 FVC FEV1/FVC FEF 25/75 Simon Claros MD PROCEDURES from Last 3 Months or Most Recently Relevant to Health Maintenance Additional Health Concerns Infection Onset Date Last Indicated ESBL Comment: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/05/17, 06/08/17, 08/26/17 01/08/2017 Advance Directives For more information, please contact: [phone] Documents on File Type Date Recorded Patient Materials Management Clerk Expl anation Advance Directives and Living Will 03/10/2016 7:35 PM Health Care Directiv e 02/26/16 * Full Code (Latest Code Status on File) Date Activated Date Inactivated Comments 03/11/2016 1:43 PM 08/22/2020 3:28 PM * Full Code Date Activated Date Inactivated Comments 03/10/2016 3:43 PM 03/11/2016 1:43 PM Care Teams Title Searcher Relationship Specialty Start Date End Date Clinic - [facility] [address] [place] [address] Assigned PCP 03/07/24
--- OUTSIDE RECORDS SUMMARY | 2024-08-04 08:40 | XMS_ITS | Referral Summary ---
Author Organization [place] Address [address] [place] [address] Care Team Providers Care Swager Operator Name Role Phone Clinic - [facility] Unavail able Allergies Active Allergy Reactions Criticality Noted Date Comments Birch Trees Unknown Medium 01/29/2022 Chlorhexidine Rash Low 03/10/2016 Latex Rash Low 05/27/2012 Other reaction(s): Other, see comments PN: sneezing, runny nose, [place] Trees Unknown Medium 01/29/2022 No Clinical Screening [...] Administration Dates Next Due Flu, Unspecified 11/23/2002 [id number] Novel Flu 11/19/2009 HepA-Peds, Unspecified 07/14/2000 HepB, [...] Sexual Orientation Straight 09/29/2021 10 :51 AM MECHANIC SOUND TECHNICIAN Last Filed Vital Signs Vital Sign Reading Time Taken Comments Blood Pressure 177/85 10/11/2022 11:00 AM MECHANIC SOUND TECHNICIAN Pulse 80 10/11/2022 11:00 AM MECHANIC SOUND TECHNICIAN Temperature 36.8 ??C (98.3 ??F) 10/11/2022 5:28 AM CS T Respiratory Rate 16 10/11/2022 5:28 AM MECHANIC SOUND TECHNICIAN Oxygen Saturation 96% 10/11/2022 11:00 AM MECHANIC SOUND TECHNICIAN Inhaled Oxygen Concentration - - Weight 66.2 kg (146 lb) 08/14/2022 2:02 PM CDT Height 167.6 cm (5' 6) 08/14/2022 2:02 PM CDT Body Mass Index 23.57 08/14/2022 2:02 PM CDT Plan of Treatment Not on file Medical Devices Implanted Type Area Bicycle Service Technician Device Identifier Shelf Expiration Date Model / Serial / Lot Imp Cup Tay [place] 56mm 1217-22-056 Implanted:Qty: 1 on 03/10/2016 by Wayne Estevez MD at [facility] Right: Hip [employer]- 01/12/2026 [id number] / / [id number] Imp [place] Hole Eliminator Hip Depuy Duraloc 1246-03-000 Implanted:Qty: 1 on 03/10/2016 by Wayne Estevez MD at [facility] Right: Hip [employer] 09/14/2025 [id number] / / [id number] Imp Scr Bone Can Tay 6.5x20mm 1217-20-500 Implanted:Qty: 1 on 03/10/2016 by Wayne Estevez MD at [facility] Right: Hip [employer]- 09/14/2025 [id number] / / [id number] Imp Scr Bone Can Tay 6.5x40mm 1217-40-500 Implanted:Qty: 1 on 03/10/2016 by Wayne Estevez MD at [facility] Right: Hip [employer]- 12/15/2025 [id number] / / [id number] Imp Scr Depuy [place] Canc 6.5x15mm 1217-15-500 Implanted:Qty: 1 on 03/10/2016 by Wayne Estevez MD at [facility] Right: Hip [employer] 08/14/2025 [id number] / / [id number] [place] Altrx Polyethylene Acetabular Liner +4 Neutral 36mm Id 56mm Od Implanted:Qty: 1 on 03/10/2016 by Wayne Estevez MD at [facility] Right: Hip Depuy 01/12/2021 1221-36-456 / / [id number] Tri-Lock Bps Femoral Stem 10/28 Taper Tri-Lock Bps Gription Size 2 Std 99mm Implanted:Qty: 1 on 03/10/2016 by Wayne Estevez MD at [facility] Right: Hip Depuy 01/12/2026 1012-04-020 / / [id number] Biolox Delta Ceramic Femoral Head +5.0 36mm Cristina 10/28 Taper Implanted:Qty: 1 on 03/10/2016 by Wayne Estevez MD at [facility] Right: Hip Depuy 09/14/2020 1365-36-320 / / [id number] Procedures Procedure Name Priority Date/Time Associated Diagnosis Comments COMPREHENSIVE METABOLIC PANEL STAT 10/11/2022 5:38 AM MECHANIC SOUND TECHNICIAN MA SCREENING BILATERAL W/ RICARDO Routine 04/17/2022 10:50 AM CDT Visit for screening mammogram DX HIP/PELVIS/SPINE W LAT FRACTION ANALYSIS Routine 12/22/2021 3:09 PM MECHANIC SOUND TECHNICIAN Aromatase inhibitor use COLONOSCOPY - HIM SCAN 12:00 AM CDT LIPID REFLEX TO DIRECT LDL PANEL Routine 08/05/2021 9:07 AM CDT Encounter for preventive health examination HC SPIROMETRY, BREATH CAPACITY Routine 01/30/2019 10:11 AM CDT Chronic obstructive pulmonary disease, unspecified COPD type (H) from Last 3 Months or Most Recently Relevant to Health Maintenance Results * (ABNORMAL) Comprehensive metabolic panel (10/11/2022 5:38 AM MECHANIC SOUND TECHNICIAN) Sodium 131(L) 136 - 145 mmol/L 10/11/2022 6:[address] [facility] Potassium >10.0(HH) 3.4 - 5.3 mmol/L 10/11/2022 6:[address] [facility] Chloride 101 98 - 107 mmol/L 10/11/2022 6:[address] [facility] Carbon Dioxide (CO2) 27 22 - 29 mmol/L 10/11/2022 6:[address] [facility] Anion Gap 3(L) 7 - 15 mmol/L 10/11/2022 6:[address] [facility] Urea Nitrogen 15.9 8.0 - 23.0 mg/dL 10/11/2022 6:[address] [facility] Creatinine 0.85 0.51 - 0.95 mg/dL 10/11/2022 6:[address] [facility] Calcium 8.9 8.8 - 10.2 mg/dL 10/11/2022 6:[address] [facility] Glucose 112(H) 70 - 99 mg/dL 10/11/2022 6:[address] [facility] Alkaline Phosphatase 74 35 - 104 U/L 10/11/2022 6:48 AM MECHANIC SOUND TECHNICIAN LABORATORY AST 125(H) 10 - 35 U/L 10/11/2022 6:48 AM MECHANIC SOUND TECHNICIAN LABORATORY Comment:Specimen is hemolyze d which can falsely elevate AST. Analysis of a non-hemolyzed specimen may result in a lower value. ALT <5(L) 10 - 35 U/L 10/11/2022 6:48 AM MECHANIC SOUND TECHNICIAN LABORATORY Protein Total 7.4 6.4 - 8.3 g/dL 10/11/2022 6:48 AM MECHANIC SOUND TECHNICIAN LABORATORY Albumin 4.0 3.5 - 5.2 g/dL 10/11/2022 6:48 AM MECHANIC SOUND TECHNICIAN LABORATORY Bilirubin Total 0.5 <=1.2 mg/dL 10/11/2022 6:48 AM MECHANIC SOUND TECHNICIAN LABORATORY GFR Estimate 71 >60 mL/min/1. 73m2 10/11/2022 6:48 AM MECHANIC SOUND TECHNICIAN LABORATORY Comment:Effective October 162020 eGFRcr in adults is calculated using the 2020 CKD-EPI creatinine equation which includes age and gender (Ji et al., NEJM, DOI: 10.1056/TWGLwc0114115) Blood BLOOD SPECIMEN / Unknown Venipuncture / Unknown 10/11/2022 5:38 AM MECHANIC SOUND TECHNICIAN 10/11/2022 5:56 AM MECHANIC SOUND TECHNICIAN Andres Kelly MD LAB - BLOOD ORDERABL ES LABORATORY [facility] Acute Care Lab [address] [facility] Lab (1st floor, no room number) [place] [address] [phone] * MA Screen Bilateral w/Ricardo (04/17/2022 10:50 [...] w Lat Fraction Anna (12/22/2021 3:09 PM MECHANIC SOUND TECHNICIAN) Anatomical Region Laterality Modality Dexa Bone Mineral Den sity Narrative 12/23/2021 12:03 PM MECHANIC SOUND TECHNICIAN BONE DENSITOMETRY [address] [address] 12/22/2021 ?? PATIENT: Darshana Brooks CHART: [id number] : ??1945 AGE: ??76 year old SEX: ??female REFERRING PROVIDER: ??Aaron Garcia MD ?? PROCEDURE: ??Bone density scanning was performed using DXA technology of the lumbar spine and hip. ??Scanning was performed on a [employer] scanner. ??Reporting is completed in the form [...] to another DXA performed on the same [employer] ?? machine on 02/28/2018. ?? LATERAL VERTEBRAL ASSESSMENT Procedure: ??Vertebral fracture assessment was performed in the lateral decubitus position using a [employer] ??densitometer. Indications for VFA: T-score of -1.0 [...] signed ?? Aaron Garcia MD IMG DEXA ORDERABL ES * COLONOSCOPY - HIM [...] Duke MD LAB - BLOOD ORDERABL ES [facility] [address] Lab (no room number, 1st floor of clinic) [place] [address], [facility] [phone] * Spirometry, Breathing Capacity: Normal Order, Clinic Performed (01/30/2019 10:11 AM CDT) FEV-1 FVC FEV1/FVC FEF 25/75 Simon Claros MD PROCEDURES from Last 3 Months or Most Recently Relevant to Health Maintenance Additional Health Concerns Infection Onset Date Last Indicated ESBL Comment: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/05/17, 06/08/17, 08/26/17 01/08/2017 Advance Directives For more information, please contact: [phone] Documents on File Type Date Recorded Patient Chemotherapist Expl anation Advance Directives and Living Will 03/10/2016 7:35 PM Health Care Directiv e 02/26/16 * Full Code (Latest Code Status on File) Date Activated Date Inactivated Comments 03/11/2016 1:43 PM 08/22/2020 3:28 PM * Full Code Date Activated Date Inactivated Comments 03/10/2016 3:43 PM 03/11/2016 1:43 PM Care Teams Swager Operator Relationship Specialty Start Date End Date Clinic - [facility] [address] [place] [address] Assigned PCP 03/07/24
--- OUTSIDE RECORDS SUMMARY | 2024-08-04 08:40 | XMS_ITS | Clinical Summary ---
Author Organization [facility] Address [address] [place] [address] Care Team Providers Care Micro Computer Specialist Name Role Phone Unassigned, Provider Primary Care Provider Unava ilable Source Comments You are receiving this document as you are listed as the primary care provider,follow-up provider, or the patient has been referred to you for consultation.This is in compliance with the Medicare andSelect Medical Trihealth Rehabilitation Hospitalcaid EHR Incentive Program,which states Providers who transition their patient to another setting of careor provider of care or refers their patient to another provider of care shouldprovide summary care record for each transition of care or referral. [facility] Allergies Active Allergy Reactions Criticality Noted Date [...] IIV3 (Trivalent) F feliciano Richeydose, 65+ Yrs (02875) 12/01/2016 Influenza, Unspecified Formulation 11/23/2002 MPSV4 (Menomune) [...] DTaP/Tdap/Td (2 - Tdap) 02/11/2019 02/11/2009, 07/14 RSV (1 - 1-dose 75+ series) 2022 COVID-19 Vaccine ( - 2023- season) 2024 Influenza (#1) 2024 12/01/2016, 10/15, [...] age to complete this topic Care Teams Micro Computer Specialist Relationship Specialty Start Date End Date Unassigned, Provider [address] [place] [address] PCP - General 05/23/01
--- OUTSIDE RECORDS SUMMARY | 2024-08-04 08:41 | XMS_ITS | Encounter Summary ---
Author Organization [place] Address [facility]ly [facility] [place] [address] Care Team Providers Care Public Safety Police Name Role Phone Jordin Allred DPM Unavailable [phone] Chan Duke MD Primary Care Provider [phone] Chan Duke MD Unavailable [phone] Yris Perez MD Unavailable Unav ailable Jordin Allred DPM Unavailable [phone] Guillermo Rojas APRN MATH TEACHER Unavailable [phone] Chan Olivarez MD Unavailable [phone] [facility] Unavail able Encounter Details Date Type Department Care Team (Late st Contact Info) Description 08/17/[address] [facility] [address] [place] [phone] Guillermo Rojas APRN MATH TEACHER [address] [place] [address] Social History Tobacco Use Types Packs/Day Years [...] Sexual Orientation Straight 09/29/2021 10 :51 AM PARKING LOT SIGNALER COVID-19 Exposure Response Date Recorded In the [...] documented as of this encounter Care Teams Public Safety Police Relationship Specialty Start Date End Date Chan Duke MD [address] [address] PCP - General Internal Medicine 08/21/21 12/15/22 Jordin Allred DPM [address] [address] Assigned Musculoskeletal Provider 03/02/21 12/18/22 [place] [address] [facility] [address] [address] Assigned PCP 08/24/21 12/18/22 [place] [address] [address] [address] [address] Assigned Cancer Care Provider 05/16/22 11/05/23 Jordin Allred DPM [address] [facility] [address] [place] [address] Assigned Surgical Provider 12/19/22 Guillermo Rojas APRN MATH TEACHER [address] [place] [address] Assigned PCP 12/19/22 02/19/23 Chan Olivarez MD [address] [place] [address] Assigned PCP 02/20/23 03/06/[address] [address] Assigned PCP 03/07/24 documented as of this encounter
--- OUTSIDE RECORDS SUMMARY | 2024-08-04 08:41 | XMS_ITS | Encounter Summary ---
Author Organization [place] Address [facility] [place] [address] Care Team Providers Care Nursing Home Administrator Name Role Phone Jordin Allred DPM Unavailable [phone] Chan Duke MD Primary Care Provider [phone] Chan Duke MD Unavailable [phone] Yris Perez MD Unavailable Unav ailable Jordin Allred DPM Unavailable [phone] Guillermo Rojas APRN STATEMENT SERVICES REPRESENTATIVE Unavailable [phone] Chan Olivarez MD Unavailable [phone] Clinic - [facility] Unavail able Encounter Details Date Type Department Care Team (Late st Contact Info) Description 07/24/2022 [facility] Virtual Care [address] [place] [address] [facility] Social History Tobacco Use Types Packs/Day Years [...] Sexual Orientation Straight 09/29/2021 10 :51 AM LEGAL SPECIALIST COVID-19 Exposure Response Date Recorded In the [...] documented as of this encounter Care Teams Nursing Home Administrator Relationship Specialty Start Date End Date Chan Duke MD [address] [place] [address] PCP - General Internal Medicine 08/21/21 12/15/22 Jordin Allred DPM [address] [employer] [address] [place] [address] Assigned Musculoskeletal Provider 03/02/21 12/18/22 [place] [address] [address] [place] [address] Assigned PCP 08/24/21 12/18/22 [place] [address] [address] [address] [address] Assigned Cancer Care Provider 05/16/22 11/05/23 Jordin Allred DPM [address] [employer] [address] [place] [address] Assigned Surgical Provider 12/19/22 Guillermo Rojas APRN STATEMENT SERVICES REPRESENTATIVE [address] [place] [address] Assigned PCP 12/19/22 02/19/23 Chan Olivarez MD [address] [place] [address] Assigned PCP 02/20/23 03/06/[address] [address] Assigned PCP 03/07/24 documented as of this encounter
--- OUTSIDE RECORDS SUMMARY | 2024-08-04 08:41 | XMS_ITS | Encounter Summary ---
Author Organization [place] Address [address] [place] [address]. [place] [address] Care Team Providers Care Nurse Executive Name Role Phone Simon Claros MD Primary Care Provider Unavail able Simon Claros MD Unavailable Unavailable Deidra Whitehead DPM, Podiatry /Foot and Ankle Surgery Unavailable Jordin AllredM Unavailable [phone] Chan Olivarez MD Unavailable [phone] Simon Claros MD Unavailable Unavailable Chan Olivarez MD Unavailable [phone] Chan Duke MD Primary Care Provider [phone] Chan Duke MD Unavailable [phone] Aaron Garcia MD Unavailable [phone] Yris Perez MD Unavailable Unav ailable Jordin AllredM Unavailable [phone] Guillermo Rojas APRN ESTHETICIAN Unavailable Chan Olivarez MD Unavailable [phone] Clinic - [facility] Unavail able Reason for Visit * Reason Onset Date Comments Call Back 08/22/2020 feeling worse Encounter Details Date Type Department Care Team (Late st Contact Info) Description 08/22/[address], [address] [place] [address] Simon Claros MD Call Back (feeling worse) [...] Sexual Orientation Straight 09/29/2021 10 :51 AM CLOTH WEAVER COVID-19 Exposure Response Date Recorded In the [...] be reached at: Home number on file [phone] (home) Best Time: Today Can we leave [...] as of this encounter Care Teams Nurse Executive Relationship Specialty Start Date End Date Simon Claros MD PCP - General Internal Medicine 09/22/12 04/14/21 Chan Duke MD [address] [facility] 150 [place] [address] PCP - General Internal Medicine 08/21/21 12/15/22 Simon Claros MD Assigned PCP 06/18/16 03/01/21 Deidra Whitehead DPM, Podiatry/Foot and Ankle Surgery [id number] [place] [address] [address] [place] [address] Assigned Musculoskeletal Provider 09/06/20 10/26/20 Jordin Allred DPM [address] [facility] [address] [place] [address] Assigned Musculoskeletal Provider 03/02/21 12/18/22 Chan Olivarez MD [address] [place] [phone] Assigned PCP 03/02/21 04/09/21 Simon Claros MD Assigned PCP 04/10/21 05/31/21 Chan Olivarez MD [address] [place] [phone] Assigned PCP 06/01/21 08/23/21 [place] [address] [place] [address] Assigned PCP 08/24/21 12/18/22 Aaron Garcia MD 500 [place] [address] Assigned Cancer Care Provider 10/12/21 05/15/22 Yris Perez MD 500 [place] [address] Assigned Cancer Care Provider 05/16/22 11/05/23 Jordin Allred DPM [address] [facility] [address] [place] [address] Assigned Surgical Provider 12/19/22 Guillermo Rojas APRN [facility] [address] [place], [place] [id number] Assigned PCP 12/19/22 02/19/23 Chan Olivarez MD [address] [phone] Assigned PCP 02/20/23 03/06/24 [facility] [address] [place] [address] Assigned PCP 03/07/24 documented as of this encounter
--- OUTSIDE RECORDS SUMMARY | 2024-08-04 08:41 | XMS_ITS | Encounter Summary ---
Author Organization [place] Address [address] [place] [address]. [place] [address] Care Team Providers Care Survey Technologist Name Role Phone Simon Claros MD Primary Care Provider Unavail able Simon Claros MD Unavailable Unavailable Deidra Whitehead DPM, Podiatry /Foot and Ankle Surgery Unavailable Jordin AllredM Unavailable [phone] Chan Olivarez MD Unavailable [phone] Simon Claros MD Unavailable Unavailable Chan Olivarez MD Unavailable [phone] Chan Duke MD Primary Care Provider Chan Duke MD Unavailable [phone] Aaron Garcia MD Unavailable [phone] Yris Perez MD Unavailable Unav ailable Jordin AllredM Unavailable [phone] Guillermo Rojas APRN SUGAR CHIPPER MACHINE OPERATOR Unavailable [phone] Chan Olivarez MD Unavailable [phone] Clinic - [facility] Unavail able Reason for Visit * Reason Comments Medication Refill Encounter Details Date Type Department Care Team (Late st Contact Info) Description 08/08/[address], [address] [place] [address] Simon Claros MD Medication Refill Social History [...] Sexual Orientation Straight 09/29/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 documented as of this encounter Plan of Treatment Not on file documented as of this encounter Visit Diagnoses Diagnosis Acute idiopathic gout of left foot documented in this encounter Additional Health Concerns Infection Onset Date Last Indicated Resolved Time ESBL Comment: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/05/17, 06/08/17, 08/26/17 01/08/2017 08/29/2019 documented as of this encounter Care Teams Survey Technologist Relationship Specialty Start Date End Date Simon Claros MD PCP - General Internal Medicine 09/22/12 04/14/21 Chan Duke MD [address] [facility] 150 [place] [address] PCP - General Internal Medicine 08/21/21 12/15/22 Simon Claros MD Assigned PCP 06/18/16 03/01/21 Deidra Whitehead DPM, Podiatry/Foot and Ankle Surgery [address] [place] [address] [address] [place] [address] Assigned Musculoskeletal Provider 09/06/20 10/26/20 Jordin Allred DPM [id number] [place] [address] [address] [place] [address] Assigned Musculoskeletal Provider 03/02/21 12/18/22 Chan Olivarez MD [address] [place] [phone] Assigned PCP 03/02/21 04/09/21 Simon Claros MD Assigned PCP 04/10/21 05/31/21 Chan Olivarez MD [address] [place] [address] [phone] Assigned PCP 06/01/21 08/23/21 [place] [address] [place] [address] Assigned PCP 08/24/21 12/18/22 Aaron Garcia MD 500 [place] [address] Assigned Cancer Care Provider 10/12/21 05/15/22 Yris Perez MD 500 [place] [address] Assigned Cancer Care Provider 05/16/22 11/05/23 Jordin Allred DPM [address] [facility] [address] [place] [address] Assigned Surgical Provider 12/19/22 Guillermo Rojas APRN CNP [address] [place] [address] Assigned PCP 12/19/22 02/19/23 Chan Olivarez MD [address] [place] [phone] Assigned PCP 02/20/23 03/06/24 [facility] [address] [place] [address] Assigned PCP 03/07/24 documented as of this encounter
--- OUTSIDE RECORDS SUMMARY | 2024-08-04 08:41 | XMS_ITS ---
Author Organization [place] Address [address] [place] [address] Care Team Providers Care Installation And Repair Technician Name Role Phone [facility] Unavail able Active Problems Problem Noted Date [...] treatments are documented for this [facility] in [facility]. Treatments may have been administered in another system. Treatment Summaries Malignant neoplasm of female breast, unspecified estrogen receptor status, unspecified laterality, unspecified site of breast* Cancer Treatment Plan and Summary - Breast Provided by [facility] [place] [facility] Information Patient Name Darshana Brooks Patient 1945 Patient phone [phone] (home) NONE (work) Email [email or web address] Care Team Primary Care Provider Simon Claros Michael Robert, MD Radiation Oncologist Medical Oncologist Following with [facility] Other Providers Cancer Diagnosis Information Diagnosis Malignant neoplasm of female breast, unspecified estrogen receptor status, unspecified laterality, unspecified site of breast (H) Diagnosis Date 02/09/2017 Staging Information Stage IA ([id number]) Estrogen Positive Progesterone 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 Possible late and/or chcf effects that someone with this type of cancer and treatment may experience: bone effects heart effects fertility effects memory and concentration pain lymphedema nervous system changes If you would like to discuss specific late and/or parts counterman effects related to your treatment, please use the following website to make an appointment in the Cancer Survivor Program: [email or web address]-[email or web address]/c are/overarching-care/pdvzbr-igye-hqcmv/support-services OR call These symptoms should be brought [...] (loss/gain) Resources you may be interested in: [employer] Society www.cancer.org [employer] Society of Clinical Oncology www.asco.org/practice-guidelines/resources-patients National Cancer [place] www.cancer.gov [employer] www.livestrong.org MHealth www.mhealth.org/care/overarching-care/qokemf-lcty-foeok/support-services www.cancer.net [employer] [place] for Cancer Research www.aicr.org This Survivorship Care Plan is a cancer treatment summary and follow up plan and is provided to youto keep with your health care records and to share with your primary care provider or any of your other providers.
--- OUTSIDE RECORDS SUMMARY | 2024-08-04 08:41 | XMS_ITS | Encounter Summary ---
Author Organization [place] Address [facility] [place] [address] Care Team Providers Care Ceramic Engineer Name Role Phone Jordin Allred DPM Unavailable [phone] Chan Duke MD Primary Care Provider [phone] Chan Duke MD Unavailable [phone] Yris Perez MD Unavailable Unav ailable Jordin Allred DPM Unavailable [phone] Guillermo Rojas APRN GROUND CONTROL APPROACH TECHNICIAN Unavailable [phone] Chan Olivarez MD Unavailable [facility] Unavail able Encounter Details Date Type Department Care Team (Late st Contact Info) Description 08/17/2022 MyC Medical Advice [facility] [address] [place] [phone] Guillermo Rojas APRN GROUND CONTROL APPROACH TECHNICIAN [address] [place] [address] Social History Tobacco Use Types Packs/Day Years [...] Sexual Orientation Straight 09/29/2021 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 COVID-19 Exposure Response Date Recorded In the [...] documented as of this encounter Care Teams Ceramic Engineer Relationship Specialty Start Date End Date Chan Duke MD [address] [address] PCP - General Internal Medicine 08/21/21 12/15/22 Jordin Allred DPM [address] [address] Assigned Musculoskeletal Provider 03/02/21 12/18/22 [place] [address] [facility] [address] Assigned PCP 08/24/21 12/18/22 [place] [address] [facility] [address] Assigned Cancer Care Provider 05/16/22 11/05/23 Jordin Allred DPM [address] [facility] [address] [place] [address] Assigned Surgical Provider 12/19/22 Guillermo Rojas APRN GROUND CONTROL APPROACH TECHNICIAN [address] [place] [address] Assigned PCP 12/19/22 02/19/23 Chan Olivarez MD [address] [place] [phone] Assigned PCP 02/20/23 03/06/[address] [address] Assigned PCP 03/07/24 documented as of this encounter
--- OUTSIDE RECORDS SUMMARY | 2024-08-04 08:41 | XMS_ITS | Encounter Summary ---
Author Organization [place] Address [address] [facility] [place] [address] Care Team Providers Care Director Group Sales Name Role Phone Jordin AllredM Unavailable [phone] Chan Duke MD Primary Care Provider [phone] Chan Duke MD Unavailable [phone] Yris Perez MD Unavailable Unav ailable Jordin Allred DPM Unavailable [phone] Guillermo Rojas APRN REHABILITATION AIDE/SCHEDULER Unavailable [phone] Chan Olivarez MD Unavailable [phone] Clinic - [facility] Unavail able Encounter Details Date Type Department Care Team (Late st Contact Info) Description 07/24/2022 MyC Medical Advice [facility] [address] [place] [address] [facility] [place] [phone] Yris Perez MD Social History Tobacco Use Types Packs/Day Years [...] Sexual Orientation Straight 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 COVID-19 Exposure Response Date Recorded In the [...] as of this encounter Care Teams Director Group Sales Relationship Specialty Start Date End Date Chan Duke MD [address] [address] PCP - General Internal Medicine 08/21/21 12/15/22 Jordin Allred DPM [address] [facility] [address] [place] [address] Assigned Musculoskeletal Provider 03/02/21 12/18/22 [place] [address] [facility] [address] Assigned PCP 08/24/21 12/18/22 [place] [address] [facility] [address] Assigned Cancer Care Provider 05/16/22 11/05/23 Jordin Allred DPM [address] [facility] [address] [place] [address] Assigned Surgical Provider 12/19/22 Guillermo Rojas APRN REHABILITATION AIDE/SCHEDULER [address] [place] [address] Assigned PCP 12/19/22 02/19/23 Chan Olivarez MD [address] [place] [phone] Assigned PCP 02/20/23 03/06/[address] [address] Assigned PCP 03/07/24 documented as of this encounter
--- OUTSIDE RECORDS SUMMARY | 2024-08-04 08:41 | XMS_ITS | Encounter Summary ---
Author Organization [place] Address [address] [place] [address]. [place] [address] Care Team Providers Care Burner Shaft Name Role Phone Simon Claros MD Primary Care Provider Unavail able Simon Claros MD Unavailable Unavailable Deidra Whitehead DPM, Podiatry /Foot and Ankle Surgery Unavailable Jordin AllredM Unavailable [phone] Chan Olivarez MD Unavailable [phone] Simon Claros MD Unavailable Unavailable Chan Olivarez MD Unavailable [phone] Chan Duke MD Primary Care Provider Chan Duke MD Unavailable [phone] Aaron Garcia MD Unavailable [phone] Yris Perez MD Unavailable Unav ailable Jordin AllredM Unavailable [phone] Guillermo Rojas APRN GOLF MANAGER Unavailable [phone] Chan Olivarez MD Unavailable [phone] Clinic - [facility] Unavail able Reason for Visit * Reason Comments Medication Refill Encounter Details Date Type Department Care Team (Late st Contact Info) Description 05/08/[address], [address] [place] [address] Simon Claros MD Medication Refill Social History [...] Sexual Orientation Straight 09/29/2021 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 [address] [place] [address] PCP - General Internal Medicine 08/21/21 12/15/22 Simon Claros MD Assigned PCP 06/18/16 03/01/21 Deidra Whitehead DPM, Podiatry/Foot and Ankle Surgery [address] [place] [address] [address] [place] [address] Assigned Musculoskeletal Provider 09/06/20 10/26/20 Jordin Allred DPM [id number] [place] [address] [address] [place] [address] Assigned Musculoskeletal Provider 03/02/21 12/18/22 Chan Olivarez MD [address] [place] [phone] Assigned PCP 03/02/21 04/09/21 Simon Claros MD Assigned PCP 04/10/21 05/31/21 Chan Olivarez MD [address] [place] [phone] Assigned PCP 06/01/21 08/23/21 [place] [address] [place] [address] Assigned PCP 08/24/21 12/18/22 Aaron Garcia MD 500 [place] [address] Assigned Cancer Care Provider 10/12/21 05/15/22 Yris Perez MD 500 [place] [address] Assigned Cancer Care Provider 05/16/22 11/05/23 J[place]red DPM [address] [facility] [address] [place] [address] Assigned Surgical Provider 12/19/22 Guillermo Rojas APRN CNP [address] [place] [address] Assigned PCP 12/19/22 02/19/23 Chan Olivarez MD [address] [place] [phone] Assigned PCP 02/20/23 03/06/24 [facility] [address] [place] [address] Assigned PCP 03/07/24 documented as of this encounter
== END 2024-08-03 09:05 | disposition home or self-care (01) ==
LOC: NFLDREF 08-04 08:38
PROVIDERS: PCP Internal Medicine; Referring Provider Internal Medicine; Visit Provider Registered Nurse
DX: N30.01 Acute cystitis with hematuria (principal); B96.4 Proteus (mirabilis) (morganii) as the cause of diseases classified elsewhere
CPT/HCPCS: 87086; 87186

== ENCOUNTER 2024-10-26 08:00 | Outpatient (RCR) | payer MEDICARE, SELFPAY ==
--- NOTE | 2023-11-24 13:31 | PT.OPE ---
PT [place] Outpatient Eval PT [facility] Outpatient Eval Start: 11/23/23 13:57 Freq: Status: Active Protocol: Document 11/23/23 14:25 LSL (Rec: 11/23/23 15:00 LSL [id number]) E-signed By Kitty De La Cruz PT Physical Therapy Outpatient Evaluation Insurance Information Recert Due Date 01/28/24 Insurance Name Medicare B,[facility] Medical Diagnosis back pain Treating Diagnosis weakness, decreased mobility, decreased spinal extensor endurance Referring MD Alvarez Subjective Subjective Pt. reports she's had mid back pain/spasms for years and I finally decided to do something about it. 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 Success would look like being able to tolerate 45 minutes of activity. Pain feels like it is being twisted and tightening. I will then do a bridge and when I am lowering back down it feels like it wraps around the left lower ribs. I do 3-8 bridges in the time I am laying down. 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 Precautions Weight Bearing Status Full Weight Bearing Therapy Limitations/Systems Review Not Limited Objective Range of Motion AROM - lumbar WNL thoracic WFL for LF and rotation with pull in L interscapular area with LLF and RLF cervical flexion WNL, L rotation 70%, R rotation 90%, B LF WNL with pain in L cervical area with B rotation Strength Shoulders - B hor abduction 4+ /5, lower trap 4/5 all others 5/5 Elbows - B 5/5 Cervical - R rotation 4+/5, L rotation 5/5 with mild discomfort on L, all others 5/ 5 Trunk - upper abdominals 2/5, extensors 4-/5 LE - L hip extension 4/5, R 4+ /5 Palpation upper R interscapular area, L mid to lower thoracic, L lats and L rib emblem fuser tender to palpation Posture decreased kyphosis, increased lordosis, foward head Other/Pertinent Objective Joint Play - stiff throughout thoracic spine with tenderness in T8-10 to PA Assessment Assessment/Impression Pt. is a 78 y/o female who presents with decreased thoracic spine mobility and extensor weakness with decreased endurance in the extensor chain. She will benefit from therapy to include therex and manual therapy to improve spinal mobility and core and hip strength and establish confidence in an ongoing HEP. 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 Pt. to have 3+/5 or greater spinal extensor strength. 2. Pt. to have 5/5 hip extensor strength. 3. Pt. to have 4/5 or greater hip abductor strength. REFERRAL RN GOALS: (8 weeks) 1. 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 2. Pt. to have spinal extensor strength of 4/5. Coordination/Communication With Referral Source,Patient Caregiver,Employer,[employer] Treatment Plan/Direct Interventions Joint Mobilization,Manual Therapy,Self-Care/Home Management,Therapeutic Exercises Frequency/Duration 2x/week 4 weeks Patient Will Be Discharged From Therapy Completion of LTG(s),Skills Plateau,Independent w/HEP, Independently Progressing Evaluation Billing Untimed Code Treatment Minutes 25 Complexity Low Certification Information Initial Certification Date 11/23/23 Ending Certification Date 01/28/24 Provider Signature Shows Agreement With POC & Medical Necessity Physician Signature & Date Requested Please Sign/Date Here Physician Comment/Change : Physician NPI Number #
--- NOTE | 2024-03-15 15:13 | PT.OP2DDN ---
PT [place] Outpatient 2nd Diagnosis Daily Note PT [facility] Outpatient 2nd Diag Daily Note Start: 03/15/24 13:42 Freq: Status: Active Protocol: Document 03/15/24 14:00 LSL (Rec: 03/15/24 15:11 LSL [id number]) E-signed By Kitty De La Cruz, PT PT OP 2nd Diagnosis Daily Note Visit Information Note Type 2nd Diagnosis Daily Note,Re- Evaluation Visit Number 1 Insurance Authorized Visits Medicare guidelines Physician Authorized Visits eval & treat Insurance Information Insurance Name Medicare B Insurance Information/Comments Medicare Advantage AARP Medical Diagnosis R hip strain Treating Diagnosis pain, weakness Referring MD Kendra Subjective Subjective Pt. reports she's had an annoyance in her R hip for about a year and a half and it is sensitive to me laying on my right side, which is the side I prefer to sleep on. On x-ray there was a decreased disc height at the last level of her spine. Sometimes I notice the pain just sitting in a chair and it feels like pressure in my right hip and it gets annoying at the top of the R SI joint. She describes the pain as tingly and warm and sometimes it feels like it 's swollen, and it is very sensitive if it gets cool. PMH - approx 2013 when R hip AA AMY Objective Other/Pertinent Objective AROM - lumbar flexion WNL, R LF WNL, L LF 50% with pull in R L5-S1, L rotation more restricted than R rotation , extension 50% PROM - SKC B WNL with pinch on R, PPU WNL with pain in R L-S junction, DKC general soreness across LB STRENGTH - R hip ER 4/5, IR 5/ 5, R hip extension 4-/5, L 5/5 JOINT PLAY - R L5 PA painful, unremarkable at other levels PALPATION - B SI joint L>R tender, L5-S1 tender, B glut med tender R>L POSTURE - mild scoliosis Weight Bearing Status Full Weight Bearing Patient Instructed in Risks/Benefits Yes Therapeutic Exercise Therapeutic Exercise Minutes (minutes) 15 Therapeutic Exercise: To Restore [place]: [id number] Functional Status DKC, piriformis, glut med stretches, clamshell with/ without band, SL mini squat at wall, bridge with band, lumbar rotation with pt. given copy of HEP and GTB. Self Care Management Training Self-Care Activity Minutes (minutes) 5 Self Care Management Training Instruction in sleeping on stomach with pillow under hips or on side with pillow between her knees and a towel roll under her hip Treatment Minutes Untimed Code Treatment Minutes 35 Timed Code Treatment Minutes 20 Total Treatment Time 55 Billing Units Therapeutic Exercise Units 1 Re-Evaluation Units 1 Assessment/Impression Assessment/Impression Pt. is a 78 y/o female who presents with R L5-S1/SI dysfunction and weakness in the R glut. She had a prior R AA AMY a number of years ago which may be related to her R glut weakness, vs. inflammation around the proximal R SI and L5-S1 facet. She historically is very compliant with her HEP for other diagnosis and we will work on improving her strength and mobility through this area with therex and manual therapy to allow her to lay on her right side and sit without pain requiring her to move and change positions or keep her awake. Plan of Care Physical Therapy Goals SHORT TERM GOALS: (3 weeks) 1. Pt. consistent with her HEP . 2. Pt. to report decreased pain when sitting to less than 3/10. 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 Pt. able to sleep on R side without waking due to pain or it keeping her from falling asleep. Daily Plan of Care Continue per POC Daily Plan of Care Comments Ongoing POC to consist of therex, manual therapy Recertification Information Initial Certification Date 03/15/24 Most Recent Visit 03/15/24 Recertification Start Date 03/15/24 Recertification Due Date 06/13/24 Reasons to Continue Skilled Therapy new diagnosis of R hip and LBP Rehabilitation Potential Good Continued Plan of Care and Interventions therex, manual therapy Provider Signature Shows Agreement With POC & Medical Necessity Physician Comment/Change Comment or Changes Physician NPI Number #
--- NOTE | 2024-08-15 12:19 | PT.OPE ---
PT [place] Out[facility] Eval PT [facility] Outpatient Eval Start: 11/23/23 13:57 Freq: Status: Active Protocol: Document 08/15/24 09:23 LSL (Rec: 08/15/24 11:51 LSL [id number]) E-signed By Kitty De La Cruz PT Physical Therapy Outpatient Evaluation Insurance Information Recert Due Date 11/13/24 Insurance Name Medicare B,[facility] Medical Diagnosis tendinitis L hip abductors, Lumbar spondylosis, L gluteal muscle strain Treating Diagnosis weakness, decreased mobility, decreased spinal extensor endurance Referring MD Gardner Subjective Subjective Pt. reports her hips bug her B but 2-3 weeks ago her L one was really aggravated and I have numbness in the lateral R hip since my hip replacement. Pt. was experiencing pain down lateral L ITB and into calf. At night the L hip aches and is miserable. I need to get up and put hot water bottle on it. Then I might be able to get back to sleep 80% of the time. Taking ibuprofen or Aleve prn. Sometimes it feels like a ball in my L posterior hip. I had catch in every step I would take. 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 Precautions Weight Bearing Status Full Weight Bearing Therapy Limitations/Systems Review Not Limited Objective Range of Motion AROM - lumbar flexion 75%, extension 30%, R LF WFL, L LF 75% with reproduction of pain Hip R L extension 27 32 abduction 32 23 PROM - lumbar R SKC 80%, L SKC 60% with pull L hip, DKC 75%; Hip L IR 29, ER 45, abd 45, R IR 15, ER 29, abd 52 Strength Trunk - upper abdominals 2/5, extensors 5/5 LE - L hip extension 3+/5, R 4 +/5, L hip abduction 4-/5 with pain, L IR 3+/5, ER 4/5 with pain on both, R IR 5/5, ER 4+ /5 Palpation B lumbar multifidus at L4-5, L QL, B glut med L>R, R piriformis along SI tight and all tender to palpation Posture decreased kyphosis, increased lordosis, foward head Other/Pertinent Objective Joint Play - B L5 UPA stiff and R painful, all other lumbar PAs normal Assessment Assessment/Impression Pt. is a 78 y/o female who presents with left GTPS due to weakness that has developed since she was last here in January. This is coupled with pain and tightness in her glut med and this weakness is likely contributing to increased stress in her LB which has known degenerative changes, possibly contributing to radiculopathy vs referred pain from SI joint. Primary Functional Limitations lifting leg, walking, sleeping Plan of Care Rehabilitation Potential Excellent Physical Therapy Goals SHORT TERM GOALS: (3 weeks) 1. Pt. to have 4/5 or greater hip abductor strength with ability to maintain level pelvis in SLS. 2. Pt. to have 5/5 hip extensor strength. 3. Pt. to report decreased aching to 4/10 or less when trying to sleep. EDITOR GOALS: (8 weeks) 1. Pt. able to get in and out of care with pain less than 2/ 10. 2. Pt. able to sleep through the night without waking due to pain. 3. Pt. independent in HEP and able to continue on her own. 4. Pt. able to walk for 20+ minutes with pain less than 3/ 10. Coordination/Communication With Referral Source,Patient Caregiver,Employer,Shrink Pit Supervisor (QRC) Treatment Plan/Direct Interventions Joint Mobilization,Manual Therapy,Self-Care/Home Management,Therapeutic Exercises Frequency/Duration 1x/week 8 weeks Patient Will Be Discharged From Therapy Completion of LTG(s),Skills Plateau,Independent w/HEP, Independently Progressing Evaluation Billing Untimed Code Treatment Minutes 40 Complexity Moderate Certification Information Initial Certification Date 08/15/24 Ending Certification Date 11/13/24 Provider Signature Required Yes Provider Signature Shows Agreement With POC & Medical Necessity Physician NPI Number # Physician Comment/Change : Physician Signature & Date Requested Please Sign/Date Here
== END 2024-12-20 16:21 | disposition home or self-care (01) ==
PROVIDERS: PCP Internal Medicine; Visit Provider Orthopaedic Surgery Sports Medicine
DX: M54.9 Dorsalgia, unspecified (principal); S76.011A Strain of muscle, fascia and tendon of right hip, initial encounter; M76.891 Other specified enthesopathies of right lower limb, excluding foot; M76.892 Other specified enthesopathies of left lower limb, excluding foot; M47.816 Spondylosis without myelopathy or radiculopathy, lumbar region; Z51.89 Encounter for other specified aftercare
CPT/HCPCS: 97012; 97110; 97140; 97161; 97162; 97164

== ENCOUNTER 2024-12-27 09:42 | Outpatient (CLI) | payer MEDICARE, SELFPAY | END 2024-12-27 09:43 | disposition home or self-care (01) | LOC: NFLDREF 12-30 02:28 | PROVIDERS: PCP Internal Medicine; Referring Provider Internal Medicine; Visit Provider Internal Medicine | DX: N30.01 Acute cystitis with hematuria (principal); B96.4 Proteus (mirabilis) (morganii) as the cause of diseases classified elsewhere | CPT/HCPCS: 87086 ==

== ENCOUNTER 2025-04-23 11:18 | Outpatient (CLI) | payer MEDICARE, SELFPAY ==
--- NOTE | 2025-04-23 11:30 | CRLHL7_ITS ---
For Patients: As a result of the Century Cures Act, medical imaging exams and procedure reports are released immediately into your electronic medical record. You may view this report before your referring provider. If you have questions, please contact your health care provider. INDICATION: BILATERAL SCREENING MAMMOGRAM, ASYMPTOMATIC 79 Y/O FEMALE COMPARISON: 11/23/2023, 04/21/2023, 04/17/2022 TECHNIQUE: Digital mammogram in CC and MLO projections including computer-aided detection (CAD) and tomosynthesis. BREAST COMPOSITION: The breasts are heterogeneously dense, which may obscure small masses. FINDINGS: No suspicious findings. ASSESSMENT: BI-RADS 2 Benign RECOMMENDATION: Annual screening mammogram. A lay language report of this examination will be provided to the patient. Dictated by: Ion Jaquez MD @ 04/26/2025 10:30:40 (Electronically Signed)
== END 2025-04-23 11:19 | disposition home or self-care (01) ==
LOC: MAMMO 11:19
PROVIDERS: PCP Internal Medicine; Visit Provider Internal Medicine Hematology & Oncology
DX: Z12.31 Encounter for screening mammogram for malignant neoplasm of breast (principal); R92.333 Mammographic heterogeneous density, bilateral breasts
CPT/HCPCS: 77063; 77067; 99214; G0463

== ENCOUNTER 2025-04-23 13:24 | Outpatient (RCR) | payer MEDICARE, SELFPAY | END 2025-10-20 23:59 | disposition home or self-care (01) | LOC: CCIC 13:24 | PROVIDERS: PCP Internal Medicine; Visit Provider Internal Medicine Hematology & Oncology | DX: C50.911 Malignant neoplasm of unspecified site of right female breast (principal); Z17.0 Estrogen receptor positive status [ER+]; Z12.31 Encounter for screening mammogram for malignant neoplasm of breast; R92.333 Mammographic heterogeneous density, bilateral breasts | CPT/HCPCS: 99214; G0463 ==

== ENCOUNTER 2025-09-24 14:18 | Outpatient (CLI) | payer MEDICARE, SELFPAY | END 2025-09-24 14:19 | disposition home or self-care (01) | LOC: NFLDREF 09-28 03:24 | PROVIDERS: PCP Internal Medicine; Referring Provider Internal Medicine; Visit Provider Physician Assistant Medical | DX: N30.01 Acute cystitis with hematuria (principal) | CPT/HCPCS: 87086; 87186 ==